=== PATIENT | male | born 1935 | race Caucasian/White ===

== ENCOUNTER 2021-07-13 13:27 | Inpatient (IN) ==
[2021-07-13] MEDS ORDERED: ALBUT/IPRATROP 3MG/0.5MG NEB 3 ML VIAL NEB STA ×2 (14:02→15:15)
[2021-07-13] MEDS ORDERED: methylPREDNISolone 125 MG/2 ML VIAL IV STA (14:02)
--- NOTE | 2021-07-13 14:22 | XRay Report ---
XR chest 1V portable CLINICAL HISTORY: SEPSIS TECHNIQUE: Single frontal radiograph of the chest was obtained. Comparison: None available at the time of this dictation. FINDINGS: No lines and tubes are seen. Cardiomegaly is noted. The lungs are clear. No evidence of pleural effus ion or pneumothorax. IMPRESSION: No acute chest disease. ACT 112: Negative or not required by law. Electronically signed by: Eric Jones M.D. 07/13/2021 2:20 PM
[2021-07-13 14:33] LABS: Basophils # (auto) 0.01 K/uL (0-0.2); Basophils % (auto) 0.1 %; Hematocrit (blood only) 41.4 % (42-52); Hemoglobin 14.1 g/dL (14.0-18.0); Immature Granulocytes # (auto) 0.03 K/uL (0.00-0.02); Immature Granulocytes % (auto) 0.3 %; Lymphocytes # (auto) 0.87 K/uL (1.2-3.4); Lymphocytes % (auto) 7.4 %; Mean Corpuscular Hemoglobin 31.2 pg (25-34); Mean Corpuscular Hgb Conc 34.1 g/dL (32-36); Mean Corpuscular Volume 91.6 fL (80-100); Mean Platelet Volume 10.1 fL (7.4-10.4); Monocytes # (auto) 0.33 K/uL (0.11-0.59); Monocytes % (auto) 2.8 %; Neutrophils # (auto) 10.44 K/uL (1.4-6.5); Neutrophils % (auto) 89.4 %; Platelet Count 247 K/uL (130-400); RDW Coefficient of Variation 13.1 % (11.5-14.5); RDW Standard Deviation 43.7 fL (36.4-46.3); Red Blood Count 4.52 M/uL (4.7-6.1); White Blood Count 11.68 K/uL (4.8-10.8)
[2021-07-13 14:43] LABS: Base Excess VBG 2.9 mEq/L; HCO3 VBG 29 mmol/L; PCO2 VBG 49 mmHg (38-50); PO2 VBG 23 mmHg; pH VBG 7.39 (7.36-7.41)
[2021-07-13 14:44] LABS: INR 1.1 (0.9-1.1); Partial Thromboplastin Ratio 1.1; Partial Thromboplastin Time 28.3 Seconds (21.0-31.0); Prothrombin Time 10.9 Seconds (9.0-12.0)
[2021-07-13 14:50] LABS: Oxygen Saturation VBG < 60.0 %
[2021-07-13 14:52] LABS: Alanine Aminotransferase 25 (12-78); Albumin Level 3.7 gm/dl (3.4-5.0); Aspartate Aminotransferase 20 U/L (15-37); BUN Creatinine Ratio 18.1 (10-20); Blood Urea Nitrogen 16 mg/dl (7-18); Calcium 8.7 mg/dl (8.5-10.1); Carbon Dioxide 26 mmol/L (21-32); Chloride 107 mmol/L (98-107); Est GFR (Non-African American) 77.7 ml/min; Glucose 125 mg/dl (70-99); Magnesium 2.2 mg/dl (1.8-2.4); Potassium 4.1 mmol/L (3.5-5.1); Sodium 138 mmol/L (136-145)
[2021-07-13 14:57] LABS: Alkaline Phosphatase 66 U/L (45-117); Bilirubin,Total 0.5 mg/dl (0.2-1); Globulin 3.6 gm/dl (2.5-4.0); NT Pro B Type Natriuretic Pept 561 pg/ml (0-1800); Total Protein 7.3 gm/dl (6.4-8.2); Troponin I < 0.015 ng/ml (0-0.045)
--- NOTE | 2021-07-13 15:03 | Emergency Department Note ---
History of Present Illness General Chief Complaint: Shortness of Breath/Dyspnea Stated Complaint: SOB Time Seen by Provider: 07/13/21 13:53 History of Present Illness Provider Complaint: shortness of breath and cough Onset (ago): day(s) (10) Severity: moderate Relieved By: + nothing Exacerbated By: + exertion and + coughing Context: + recent illness (Diagnosed with COVID-19 on July 03) Known history of: COPD Associated symptoms: + chest pain, + cough, + wheezing, + sputum production and + chest congestion; no orthopnea, no lower extremity pain, no paresthesias, no hemoptysis, no nausea/vomiting, no abdominal pain or no rash Treatment prior to arrival: bronchodilator HPI Narrative: Patient tested positive for COVID-19 on July 03. 2 days ago he was placed on Zithromax and prednisone. Related Data Home oxygen amount: none Home Medications Medication Instructions Recorded Confirmed Type atorvastatin 40 mg tablet 40 mg PO QAM 12/27/19 07/13/21 History cholecalciferol (vitamin D3) 25 25 mcg PO DAILY 12/27/19 07/13/21 History mcg (1,000 unit) tablet (Vitamin D3) ibuprofen 600 mg tablet 600 mg PO TID PRN #15 tab 12/27/19 07/13/21 Rx multivitamin 1 tab PO QAM 12/27/19 07/13/21 History azithromycin 250 mg tablet 0 mg PO UD 07/13/21 07/13/21 History prednisone 10 mg tablet 0 mg PO UD 07/13/21 07/13/21 History Allergies Allergy/AdvReac Type Severity Reaction Status Date / Time No Known Allergies Allergy Mild Unverified 07/13/21 15:25 Past Med/Surg History Medical History (Updated 07/13/21 @ 16:17 by Marko Ryan) COPD (chronic obstructive pulmonary disease) HLD (hyperlipidemia) No pertinent family history Surgical History (Updated 07/13/21 @ 15:12 by Marko Ryan) No pertinent past surgical history Social History Smoking Status: Current every day smoker Tobacco Type: Cigarettes Preferred Language: [place] Leonean Feels Safe at Home: Yes Review of Systems A total of 10 systems reviewed and were otherwise negative Physical Exam Vital Signs: Vital Signs - 24 hr 07/13/21 13:27 07/13/21 13:35 07/13/21 13:51 Temperature 37.0 C Temperature Source Skin Pulse Rate 47 L 67 Pulse Rate from Sp O2 Sensor 55 L Respiratory Rate 24 36 H Respiratory Effort / Characteristics Labored Non-Labored Sponta neous Respiratory Depth Normal Normal Respiratory Patter n Regular Regular Blood Pressure 149/77 H Blood Pressure Piper n 101 Pulse Oximetry 86 L 93 98 Oxygen Delivery Me thod Nasal Cannula Room Air Oxygen Flow Rate 2 2 Sepsis Recent Feve r Within 48 Hours No Sepsis New/Unexpla ined Change in Men ramses Status N/A Sepsis Action Take n by Nursing No Action Required Oxygen Flow Rate - Titration 2 Pulse Oximetry Pos t Tiitration 98 07/13/21 13:54 07/13/21 14:00 07/13/21 14:10 Temperature Temperature Source Pulse Rate 72 73 Pulse Rate from Sp O2 Sensor 70 79 Respiratory Rate 20 21 25 H Respiratory Effort / Characteristics Labored Respiratory Depth Respiratory Patter n Blood Pressure Blood Pressure Piper n Pulse Oximetry 98 97 96 Oxygen Delivery Me thod Nasal Cannula Oxygen Flow Rate 2 Sepsis Recent Feve r Within 48 Hours Sepsis New/Unexpla ined Change in Men ramses Status Sepsis Action Take n by Nursing Oxygen Flow Rate - Titration Pulse Oximetry Pos t Tiitration 07/13/21 14:20 07/13/21 14:30 07/13/21 14:40 Temperature Temperature Source Pulse Rate 77 78 75 Pulse Rate from Sp O2 Sensor 73 71 71 Respiratory Rate 23 27 H 28 H Respiratory Effort / Characteristics Respiratory Depth Respiratory Patter n Blood Pressure 151/75 H Blood Pressure Piper n 100 Pulse Oximetry 91 98 97 Oxygen Delivery Me thod Oxygen Flow Rate Sepsis Recent Feve r Within 48 Hours Sepsis New/Unexpla ined Change in Men ramses Status Sepsis Action Take n by Nursing Oxygen Flow Rate - Titration Pulse Oximetry Pos t Tiitration 07/13/21 14:50 07/13/21 15:00 07/13/21 15:10 Temperature Temperature Source Pulse Rate 75 90 68 Pulse Rate from Sp O2 Sensor 79 90 69 Respiratory Rate 20 20 24 Respiratory Effort / Characteristics Spontaneous Respiratory Depth Respiratory Patter n Blood Pressure Blood Pressure Piper n Pulse Oximetry 98 97 96 Oxygen Delivery Me thod Nasal Cannula Oxygen Flow Rate Sepsis Recent Feve r Within 48 Hours Sepsis New/Unexpla ined Change in Men ramses Status Sepsis Action Take n by Nursing Oxygen Flow Rate - Titration Pulse Oximetry Pos t Tiitration 07/13/21 15:23 07/13/21 15:30 07/13/21 15:40 Temperature Temperature Source Pulse Rate 76 81 74 Pulse Rate from Sp O2 Sensor 65 81 Respiratory Rate 22 31 H 19 Respiratory Effort / Characteristics Respiratory Depth Respiratory Patter n Blood Pressure 156/77 H Blood Pressure Piper n 103 Pulse Oximetry 80 L 91 97 Oxygen Delivery Me thod Oxygen Flow Rate Sepsis Recent Feve r Within 48 Hours Sepsis New/Unexpla ined Change in Men ramses Status Sepsis Action Take n by Nursing Oxygen Flow Rate - Titration Pulse Oximetry Pos t Tiitration Physical Exam: Physical Exam GENERAL: He is oriented to person, place, and time. He appears well-developed and well-nourished. He does not appear distressed. HENT: Exam performed. - Head: Normocephalic and atraumatic. - Right Ear: External ear normal. No mastoid tenderness. - Left Ear: External ear normal. No mastoid tenderness. - Mouth/Throat: The oropharynx is clear and moist. No trismus in the jaw. No dental abscesses or uvula swelling. No oropharyngeal exudate or tonsillar abscesses. EYES: Conjunctivae and EOM are normal. Pupils are equal, round, and reactive to light. Right eye exhibits no discharge. Left eye exhibits no discharge. No scleral icterus. NECK: Normal range of motion. Neck supple. No JVD present. No spinous process tenderness present. No carotid bruit present. No rigidity. No tracheal deviation and normal range of motion present. No Brudzinski's sign and no Kernig's sign noted. CV: Normal rate, regular rhythm, normal heart sounds and intact distal pulses. There is no peripheral edema. Palpable radial pulses bue. PULM/CHEST: Bilateral expiratory wheezes. - Chest Wall: He exhibits no tenderness. ABD: The abdomen is soft. Bowel sounds are normal. He has no distension. No mass is present. There is no tenderness. There is no rebound, no guarding, no Solomon's sign and no tenderness at McBurney's point. Rovsig negative. MUSC/SKEL: Normal range of motion. There is no peripheral edema, tenderness or deformity. LYMPH: No cervical adenopathy. NEURO: He is alert and oriented to person, place, and time. He has normal strength. No cranial nerve deficit or sensory deficit. Coordination and gait normal. GCS eye subscore is 4. GCS verbal subscore is 5. GCS motor subscore is 6. Cerebellar tests wnl. SKIN: Skin is warm and dry. He is not diaphoretic. PSYCH: He has a normal mood and affect. Behavior is normal. Judgment and thought content normal. Course Course 1353: The patient was evaluated in room B11. A complete history and physical exam was performed Cardiac monitoring: An order was placed for continuous cardiac monitoring. The monitor shows a rate of 70 with sinusrhythm 1525: Patient became very dyspneic wheezing and hypoxic when getting up to use restroom. Patient oxygen saturation went down to 80% on room air. Patient placed on supplemental oxygen which he did state made him feel better and improved his oxygen saturation. 1604: Vital signs stable. Labs and imaging within normal limits. Patient oxygen saturation stable on supplemental oxygen via nasal cannula. Still wheezing. Patient will be admitted to the [facility] team Dr. Sheth team notified Administered Medications Discontinued Medications Albuterol (Albut/Ipratrop 3mg/0.5mg Neb 3 Ml Vial) 3 ml NEB NOW STA; Protocol Stop: 07/13/21 14:03 Last Admin: 07/13/21 14:38 Dose: 3 ml Documented by: [id number] Albuterol (Albut/Ipratrop 3mg/0.5mg Neb 3 Ml Vial) 3 ml NEB NOW STA; Protocol Stop: 07/13/21 15:16 Last Admin: 07/13/21 15:37 Dose: 3 ml Documented by: [id number] Methylprednisolone (Methylprednisolone 125 Mg/2 Ml Vial) 125 mg IV NOW STA Stop: 07/13/21 14:03 Last Admin: 07/13/21 14:38 Dose: 125 mg Documented by: [id number] Medical Decision Making Laboratory Data Result diagrams: 07/13/21 Unknown 07/13/21 Unknown Lab Results 07/13/21 07/13/21 07/13/21 Range/Units 14:20 14:29 14:35 WBC (4.8-10.8) K/uL RBC (4.7-6.1) M/uL Hgb (14.0-18.0) g/dL Hct (42-52) % MCV (80-100) fL MCH (25-34) pg MCHC (32-36) g/dL RDW Std Deviation (36.4-46.3) fL RDW Coeff of Ingrid (11.5-14.5) % Plt Count (130-400) K/uL MPV (7.4-10.4) fL Immature Gran % (Auto) % Neut % (Auto) % Lymph % (Auto) % [place] % (Auto) % Eos % (Auto) % Baso % (Auto) % Neut # (Auto) (1.4-6.5) K/uL Lymph # (Auto) (1.2-3.4) K/uL [place] # (Auto) (0.11-0.59) K/uL Eos # (Auto) (0-0.5) K/uL Baso # (Auto) (0-0.2) K/uL Immature Gran # (Auto) (0.00-0.02) K/uL PT (9.0-12.0) Seconds INR (0.9-1.1) APTT (21.0-31.0) Seconds PTT Ratio VBG pH 7.39 (7.36-7.41) VBG pCO2 49 (38-50) mmHg VBG pO2 23 mmHg VBG HCO3 29 mmol/L VBG O2 Saturation < 60.0 % VBG Base Excess 2.9 mEq/L Barometric Pressure 718.5 mm/Hg Sodium (136-145) mmol/L Potassium (3.5-5.1) mmol/L Chloride (98-107) mmol/L Carbon Dioxide (21-32) mmol/L Anion Gap (3-11) BUN (7-18) mg/dl Creatinine (0.6-1.4) mg/dl Est Cr Clr Drug Dosing ml/min Est GFR ( Amer) ml/min Est GFR (Non-Af Amer) ml/min BUN/Creatinine Ratio (10-20) Glucose (70-99) mg/dl Lactate 1.5 (0.4-2.0) mmol/L Calcium (8.5-10.1) mg/dl Magnesium (1.8-2.4) mg/dl Total Bilirubin (0.2-1) mg/dl AST (15-37) U/L ALT (12-78) Alkaline Phosphatase (45-117) U/L Troponin I (0-0.045) ng/ml NT-Pro-B Natriuret Pep (0-1800) pg/ml Total Protein (6.4-8.2) gm/dl Albumin (3.4-5.0) gm/dl Globulin (2.5-4.0) gm/dl Albumin/Globulin Ratio (0.9-2) Procalcitonin (0-0.5) ng/ml SARS-CoV-2 (PCR) POSITIVE A* (Negative) Influenza Type A (PCR) Negative (Neg) Influenza Type B (PCR) Negative (Neg) RSV (RT-PCR) Negative (Neg) 07/13/21 07/13/21 07/13/21 Range/Units Unknown Unknown Unknown WBC 11.68 H (4.8-10.8) K/uL RBC 4.52 L (4.7-6.1) M/uL Hgb 14.1 (14.0-18.0) g/dL Hct 41.4 L (42-52) % MCV 91.6 (80-100) fL MCH 31.2 (25-34) pg MCHC 34.1 (32-36) g/dL RDW Std Deviation 43.7 (36.4-46.3) fL RDW Coeff of Ingrid 13.1 (11.5-14.5) % Plt Count 247 (130-400) K/uL MPV 10.1 (7.4-10.4) fL Immature Gran % (Auto) 0.3 % Neut % (Auto) 89.4 % Lymph % (Auto) 7.4 % Denton % (Auto) 2.8 % Eos % (Auto) 0.0 % Baso % (Auto) 0.1 % Neut # (Auto) 10.44 H (1.4-6.5) K/uL Lymph # (Auto) 0.87 L (1.2-3.4) K/uL [place]enton # (Auto) 0.33 (0.11-0.59) K/uL Eos # (Auto) 0.00 (0-0.5) K/uL Baso # (Auto) 0.01 (0-0.2) K/uL Immature Gran # (Auto) 0.03 H (0.00-0.02) K/uL PT (9.0-12.0) Seconds INR (0.9-1.1) APTT (21.0-31.0) Seconds PTT Ratio VBG pH (7.36-7.41) VBG pCO2 (38-50) mmHg VBG pO2 mmHg VBG HCO3 mmol/L VBG O2 Saturation % VBG Base Excess mEq/L Barometric Pressure mm/Hg Sodium 138 (136-145) mmol/L Potassium 4.1 (3.5-5.1) mmol/L Chloride 107 (98-107) mmol/L Carbon Dioxide 26 (21-32) mmol/L Anion Gap 5.0 (3-11) BUN 16 (7-18) mg/dl Creatinine 0.91 (0.6-1.4) mg/dl Est Cr Clr Drug Dosing 47.0 ml/min Est GFR ( Amer) 90.0 ml/min Est GFR (Non-Af Amer) 77.7 ml/min BUN/Creatinine Ratio 18.1 (10-20) Glucose 125 H (70-99) mg/dl Lactate (0.4-2.0) mmol/L Calcium 8.7 (8.5-10.1) mg/dl Magnesium 2.2 (1.8-2.4) mg/dl Total Bilirubin 0.5 (0.2-1) mg/dl AST 20 (15-37) U/L ALT 25 (12-78) Alkaline Phosphatase 66 (45-117) U/L Troponin I < 0.015 (0-0.045) ng/ml NT-Pro-B Natriuret Pep 561 (0-1800) pg/ml Total Protein 7.3 (6.4-8.2) gm/dl Albumin 3.7 (3.4-5.0) gm/dl Globulin 3.6 (2.5-4.0) gm/dl Albumin/Globulin Ratio 1.0 (0.9-2) Procalcitonin < 0.05 (0-0.5) ng/ml SARS-CoV-2 (PCR) (Negative) Influenza Type A (PCR) (Neg) Influenza Type B (PCR) (Neg) RSV (RT-PCR) (Neg) 07/13/21 Range/Units Unknown WBC (4.8-10.8) K/uL RBC (4.7-6.1) M/uL Hgb (14.0-18.0) g/dL Hct (42-52) % MCV (80-100) fL MCH (25-34) pg MCHC (32-36) g/dL RDW Std Deviation (36.4-46.3) fL RDW Coeff of Ingrid (11.5-14.5) % Plt Count (130-400) K/uL MPV (7.4-10.4) fL Immature Gran % (Auto) % Neut % (Auto) % Lymph % (Auto) % [place] % (Auto) % Eos % (Auto) % Baso % (Auto) % Neut # (Auto) (1.4-6.5) K/uL Lymph # (Auto) (1.2-3.4) K/uL [place] # (Auto) (0.11-0.59) K/uL Eos # (Auto) (0-0.5) K/uL Baso # (Auto) (0-0.2) K/uL Immature Gran # (Auto) (0.00-0.02) K/uL PT 10.9 (9.0-12.0) Seconds INR 1.1 (0.9-1.1) APTT 28.3 (21.0-31.0) Seconds PTT Ratio 1.1 VBG pH (7.36-7.41) VBG pCO2 (38-50) mmHg VBG pO2 mmHg VBG HCO3 mmol/L VBG O2 Saturation % VBG Base Excess mEq/L Barometric Pressure mm/Hg Sodium (136-145) mmol/L Potassium (3.5-5.1) mmol/L Chloride (98-107) mmol/L Carbon Dioxide (21-32) mmol/L Anion Gap (3-11) BUN (7-18) mg/dl Creatinine (0.6-1.4) mg/dl Est Cr Clr Drug Dosing ml/min Est GFR ( Amer) ml/min Est GFR (Non-Af Amer) ml/min BUN/Creatinine Ratio (10-20) Glucose (70-99) mg/dl Lactate (0.4-2.0) mmol/L Calcium (8.5-10.1) mg/dl Magnesium (1.8-2.4) mg/dl Total Bilirubin (0.2-1) mg/dl AST (15-37) U/L ALT (12-78) Alkaline Phosphatase (45-117) U/L Troponin I (0-0.045) ng/ml NT-Pro-B Natriuret Pep (0-1800) pg/ml Total Protein (6.4-8.2) gm/dl Albumin (3.4-5.0) gm/dl Globulin (2.5-4.0) gm/dl Albumin/Globulin Ratio (0.9-2) Procalcitonin (0-0.5) ng/ml SARS-CoV-2 (PCR) (Negative) Influenza Type A (PCR) (Neg) Influenza Type B (PCR) (Neg) RSV (RT-PCR) (Neg) Imaging Data Radiologist's Impression: Chest X-Ray 07/13/21 13:54 XR chest 1V portable CLINICAL HISTORY: SEPSIS TECHNIQUE: Single frontal radiograph of the chest was obtained. Comparison: None available at the time of this dictation. FINDINGS: No lines and tubes are seen. Cardiomegaly is noted. The lungs are clear. No evidence of pleural effusion or pneumothorax. IMPRESSION: No acute chest disease. ACT 112: Negative or not required by law. Electronically signed by: Eric Jones M.D. 07/13/2021 2:20 PM ECG Data Interpretation: Sinus rhythm with rate of 66. NC QRS and QTc intervals within normal limits. No ST elevation or ST depression. PVCs present. [facility] Narrative 1353: The patient was evaluated in room B11. A complete history and physical exam was performed Cardiac monitoring: An order was placed for continuous cardiac monitoring. The monitor shows a rate of 70 with sinusrhythm 1525: Patient became very dyspneic wheezing and hypoxic when getting up to use restroom. Patient oxygen saturation went down to 80% on room air. Patient placed on supplemental oxygen which he did state made him feel better and improved his oxygen saturation. 1604: Vital signs stable. Labs and imaging within normal limits. Patient oxygen saturation stable on supplemental oxygen via nasal cannula. Still wheezing. Patient will be admitted to the [facility] team Dr. Sheth team notified Impression & Plan Hypoxia, COPD exacerbation Critical Care Time Critical Care Time: Yes Total Critical Care Time: 41 Discharge Plan Visit Data Chief Complaint: Shortness of Breath/Dyspnea Stated Complaint: SOB ED Provider: Marko Ryan Discharge Problem: Hypoxia, COPD exacerbation Patient Disposition: Admitted As Inpatient Forms Stand Alone Forms: [facility] Prescriptions Prescriptions: No Action multivitamin Tablet 1 tab PO QAM RF: 0 atorvastatin 40 mg tablet 40 mg PO QAM RF: 0 cholecalciferol (vitamin D3) [Vitamin D3] 25 mcg (1,000 unit) Tablet 25 mcg PO DAILY RF: 0 ibuprofen 600 mg tablet 600 mg PO TID PRN (Reason: pain (scale score 4-6)) Qty: 15 RF: 0 azithromycin 250 mg tablet 0 mg PO UD RF: 0 prednisone 10 mg tablet 0 mg PO UD RF: 0 Referrals Referrals: Ciro Zayas MD [Primary Care Provider] -
[2021-07-13 15:27] LABS: Influenza A virus by PCR Negative (Neg); Influenza B virus by PCR Negative (Neg); RSV by PCR Negative (Neg)
[2021-07-13 15:35] LABS: SARS CoV2 RNA(COVID-19) InHosp POSITIVE (Negative)
--- NOTE | 2021-07-13 17:22 | History & Physical Report ---
Date of Service July 13, 2021 Assessment & Plan (1) COPD exacerbation: (2) Hypoxia: (3) COVID-19 virus infection: Plan: 85-year-old male with history of COPD, CAD, history of edema, history of alcohol use and smoking, presenting with cough and congestion times few days. ACUTE HYPOXIC RESPIRATORY FAILURE SECONDARY TO ACUTE COPD EXACERBATION ACUTE BRONCHITIS, SUSPECT COVID-19 VIRUS INFECTION RULE OUT PULMONARY EMBOLISM Diagnosed with COVID-19 virus infection 07/03/2021 Presented with hypoxia of 86%, currently on 2 L of oxygen saturating 96% Decadron 6 mg IV daily Levaquin 500 mg p.o. daily Levalbuterol/ipratropium nebulization treatments every [address] chest to rule out PE Check Ultrasound to rule out DVTs Incentive spirometry, flutter valve, Lovenox for DVT prophylaxis HISTORY OF CAD Continue aspirin DYSLIPIDEMIA On Lipitor HISTORY OF ALCOHOL USE AND SMOKING Counseling DVT prophylaxis Lovenox Full code per patient Disposition anticipate discharge to home medically stable need two-step oxygen test prior to discharge History of Present Illness Chief Complaint: 85-year-old male with history of COPD, CAD, history of edema, history of alcohol use and smoking, presenting with cough and congestion times few days. Patient diagnosed with Covid 19 infection on 07/03/2021 after apparently few weeks of poor appetite, fatigue, loss of taste and smell. Patient presented again on urgent care 07/11/2021 for cough, congestion, sputum production. He was prescribed with prednisone taper and azithromycin but with no improvement of symptoms. Presented to the ER today with O2 saturation 86% on room air, bilateral wheezing, chest x-ray clear. Was given albuterol nebulization and Solu-Medrol at the ER. On exam, patient is on 2 L of oxygen via nasal cannula, saturating 96%. Sitting up in bed, comfortable, not in distress States he feels improved compared to admission No active shortness of breath. Denies chest pain, palpitations, dizziness, abdominal pain, nausea vomiting, diarrhea. Reports mild calf pain bilaterally. No other symptoms Primary Care Provider: Ciro Zayas MD Allergies Allergy/AdvReac Type Severity Reaction Status Date / Time No Known Allergies Allergy Mild Unverified 07/13/21 15:25 Home Medications Medication Instructions Recorded Confirmed Type atorvastatin 40 mg tablet 40 mg PO QAM 12/27/19 07/13/21 History cholecalciferol (vitamin D3) 25 25 mcg PO DAILY 12/27/19 07/13/21 History mcg (1,000 unit) tablet (Vitamin D3) ibuprofen 600 mg tablet 600 mg PO TID PRN #15 tab 12/27/19 07/13/21 Rx multivitamin 1 tab PO QAM 12/27/19 07/13/21 History azithromycin 250 mg tablet 0 mg PO UD 07/13/21 07/13/21 History prednisone 10 mg tablet 0 mg PO UD 07/13/21 07/13/21 History Past Med/Surg History Medical History (Updated 07/13/21 @ 17:19 by Noah Hardin MD) COPD (chronic obstructive pulmonary disease) HLD (hyperlipidemia) No pertinent family history Surgical History (Updated 07/13/21 @ 15:12 by Marko Ryan) No pertinent past surgical history Social History Smoking Status: Current every day smoker Tobacco Type: Cigarettes Preferred Language: Macedonian Feels Safe at Home: Yes Review of Systems Review of Systems: all noted and negative except for above Physical Exam Physical Exam: General- oriented x 3, not in distress, speaks in sentences with no effort or accessory muscle use Head- atraumatic Eyes- PERRL, EOMI, anicteric ENT- oropharynx clear Neck- supple, no JVD, no adenopathy, no thyromegaly; carotids +2/2, no bruits appreciated Lungs-diminished breath sounds bilaterally, faint wheezing on the left, clear on the right Heart- normal rate, regular rhythm; no murmur, no gallop, no rub appreciated Abdomen- normal bowel sounds, nondistended, soft, nontender, no masses or hepatosplenomegaly Extremities- no pretibial edema, no calf tenderness; peripheral pulses intact Neuro- alert, oriented x 3; CN 2-12 grossly intact; motor 5/5 bilaterally;sensation 100% on all extremities; no other gross focal neurologic deficits Skin- warm & dry Results & Data Results & Data ([facility]) Vital Signs (Past 12 Hours) Vital Signs Temp Pulse Resp BP Pulse Ox 07/13/21 17:00 128/70 95 07/13/21 16:50 96 07/13/21 16:40 82 96 07/13/21 16:30 87 98 07/13/21 16:20 96 07/13/21 16:10 93 07/13/21 16:00 81 14 94 07/13/21 15:50 94 07/13/21 15:40 74 19 97 07/13/21 15:30 81 31 H 156/77 H 91 07/13/21 15:23 76 22 80 L 07/13/21 15:10 68 24 96 07/13/21 15:00 90 20 97 07/13/21 14:50 75 20 98 07/13/21 14:40 75 28 H 97 07/13/21 14:30 78 27 H 151/75 H 98 07/13/21 14:20 77 23 91 07/13/21 14:10 73 25 H 96 07/13/21 14:00 72 21 97 07/13/21 13:54 20 98 07/13/21 13:51 67 36 H 98 07/13/21 13:35 37.0 C 47 L 24 149/77 H 93 07/13/21 13:27 86 L all noted and reviewed including below Code Status & VTE Plan VTE Prophylaxis Plan VTE Prophylaxis will be ordered: Yes
[2021-07-13] MEDS ORDERED: OPTIRAY 320 125ml IV ONE (17:56)
--- NOTE | 2021-07-13 18:13 | Ultrasound Report ---
US venous doppler LE BI CLINICAL HISTORY: calf pain, COVID infection COMPARISON: None available at the time of this dictation. TECHNIQUE: Bilateral lower extremity real-time compression venous ultrasound with Color Doppler imagi ng. Utilizing real-time ultrasonic imaging multiple real time high-resolution ultrasonic images with comp ression and noncompression maneuvers of the deep venous system in addition to color doppler imaging w ere performed from the common femoral vein through the proximal calf veins. FINDINGS: Currently there is normal compressibility of the deep venous system from the common femoral vein thro ugh the proximal calf veins. No current evidence of acute thrombosis is identified. Impression: No evidence of deep venous thrombus. ACT 112: Negative or not required by law. Electronically signed by: Eric Jones M.D. 07/13/2021 6:12 PM
--- NOTE | 2021-07-13 18:19 | CT Scan Report ---
CT angio chest PE protocol CLINICAL HISTORY: PE code positive. TECHNIQUE: Multidetector row helical CT of the chest was performed. Coronal and sagittal reformations were obtained. Coronal and sagittal MIPS were obtained from the axial data set and were submitted fo r review. Automated dose lowering techniques and/or adjustment according to patient size were utiliz ed for this exam. Comparison: None available at the time of this dictation. FINDINGS: Lungs and pleura: Diffuse centrilobular emphysema is seen most prominent in the upper lobes. Heart and pericardium: Heart size is normal. No pericardial effusion. Vessels: There is a nonocclusive thrombus in a right upper lobe segmental artery. Mediastinum and kinza: Unremarkable. Chest wall and lower neck: Unremarkable. Abdomen: Unremarkable. Bones: Degenerative changes in the thoracic spine. IMPRESSION: Nonocclusive thrombus in a right upper lobe segmental artery. ACT 112: Negative or not required by law. Electronically signed by: Eric Jones M.D. 07/13/2021 6:18 PM
[2021-07-13 18:32] LABS: Appearance Urine Clear (Clear); Bilirubin Urine Negative (Negative); Blood Urine Negative (Negative); Color Urine Yellow; Glucose Urine UA Negative (Negative); Ketones Urine Negative (Negative); Leukocyte Esterase Urine Negative (Negative); Nitrite Urine Negative (Negative); Protein Urine Negative (Negative); Specific Gravity Urine 1.009 (1.000-1.030); Urobilinogen Urine Negative (Negative); pH Urine 5.5 (4.5-7.5)
[2021-07-13] MEDS ORDERED: XOPENEX/ATROVENT 1.25mg/0.5MG NEB COMBO NEB SCH (22:57)
[2021-07-13] MEDS ORDERED: ACETAMINOPHEN 325 MG TAB PO PRN (22:57)
[2021-07-13] MEDS: LEVALBUTEROL 1.25MG/0.5ML NEB INH SCH (23:19)
[2021-07-13] MEDS: IPRATROPIUM BROMIDE NEB SOLN 0.02% 2.5 ML VIAL INH SCH (23:19)
[2021-07-13] MEDS ORDERED: levoFLOXacin 500 MG TAB PO ONE (23:45)
[2021-07-14] MEDS: ENOXAPARIN INJ 60 MG/0.6 ML SYR SC SCH ×3 (00:36→23:07)
[2021-07-14] MEDS: IPRATROPIUM BROMIDE NEB SOLN 0.02% 2.5 ML VIAL INH SCH ×4 (00:38→19:31)
[2021-07-14] MEDS: LEVALBUTEROL 1.25MG/0.5ML NEB INH SCH ×4 (00:38→19:31)
[2021-07-14] MEDS: dexAMETHasone 6 MG in SYRINGE 0 ML IV SCH (07:58)
[2021-07-14 09:46] LABS: Hematocrit (blood only) 40.8 % (42-52); Hemoglobin 13.6 g/dL (14.0-18.0); Mean Corpuscular Hemoglobin 31.2 pg (25-34); Mean Corpuscular Hgb Conc 33.3 g/dL (32-36); Mean Corpuscular Volume 93.6 fL (80-100); Mean Platelet Volume 9.9 fL (7.4-10.4); Platelet Count 243 K/uL (130-400); RDW Coefficient of Variation 13.3 % (11.5-14.5); RDW Standard Deviation 45.8 fL (36.4-46.3); Red Blood Count 4.36 M/uL (4.7-6.1); White Blood Count 9.19 K/uL (4.8-10.8)
[2021-07-14 10:06] LABS: Albumin Level 3.3 gm/dl (3.4-5.0); BUN Creatinine Ratio 19.1 (10-20); Calcium 8.5 mg/dl (8.5-10.1); Creatinine Clr Calc Pharmacy 44.2 ml/min; Est GFR (African American) 88.8 ml/min; Est GFR (Non-African American) 76.6 ml/min; Potassium 3.7 mmol/L (3.5-5.1)
[2021-07-14 10:09] LABS: Bilirubin,Total 0.5 mg/dl (0.2-1); Globulin 3.3 gm/dl (2.5-4.0); Total Protein 6.6 gm/dl (6.4-8.2)
[2021-07-14 10:10] LABS: ALC (manual) 0.74 K/uL (1.2-3.4); ANC (manual) 7.95 K/uL (1.4-6.5); Lymphocytes # (manual) 0.74 K/uL (1.2-3.4); Lymphocytes % (manual) 8.1 %; Monocytes % (manual) 5.4 %; Neutrophils # (manual) 7.95 K/uL (1.4-6.5); Neutrophils % (manual) 86.5 %
--- NOTE | 2021-07-14 11:40 | Electrocardiogram Report ---
Test Reason : Blood Pressure : / mmHG Vent. Rate : 066 BPM Atrial Rate : 066 BPM P-R Int : 132 ms QRS Dur : 094 ms QT Int : 428 ms P-R-T Axes : 070 058 059 degrees QTc Int : 448 ms Sinus rhythm with occasional Premature ventricular complexes Otherwise normal ECG No previous ECGs available Confirmed by Alexx Pacheco ([id number]) on 07/14/2021 11:39:42 AM Referred By: Confirmed By:Alexx Pacheco
[2021-07-14] MEDS: levoFLOXacin 250 MG TABLET PO SCH (12:39)
--- NOTE | 2021-07-14 14:45 | Hospitalist Progress Note ---
Date of Service July 14, 2021 Assessment & Plan (1) COPD exacerbation: (2) Hypoxia: (3) COVID-19 virus infection: Plan: 85-year-old male with history of COPD, CAD, history of edema, history of alcohol use and smoking, presenting with cough and congestion times few days. ACUTE HYPOXIC RESPIRATORY FAILURE SECONDARY TO ACUTE COPD EXACERBATION ACUTE BRONCHITIS, SUSPECT COVID-19 VIRUS INFECTION RULE OUT PULMONARY EMBOLISM Diagnosed with COVID-19 virus infection 07/03/2021 Presented with hypoxia of 86%, placed on 2 L of oxygen saturating 96% CT chest: No pneumonia, right upper lobe PE-acute to subacute per radiologist Decadron 6 mg IV daily Levaquin 500 mg p.o. 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 presented 10 days after symptom onset Continue Levaquin day #2 Continue nebs Incentive spirometry, flutter valve Management of acute PE per below ACUTE PULMONARY EMBOLISM Right upper lobe, seen on CT chest Doppler ultrasound: No DVTs Lovenox 50 mg subcutaneous twice daily Transition to NOAC on discharge HISTORY OF CAD Continue aspirin DYSLIPIDEMIA On Lipitor HISTORY OF ALCOHOL USE AND SMOKING Counseling DVT prophylaxis Lovenox Full code per patient Disposition anticipate discharge to home medically stable need two-step oxygen test prior to discharge Admission and Anticipated Discharge Date Admission Date: July 13, 2021 Subjective Follow-up for acute hypoxic respiratory failure, COVID-19 infection, COPD exacerbation, acute bronchitis Etc. Seen sitting up in bed, off oxygen supplement States he feels improved today compared to yesterday Breathing is improving Has dry cough No chest pain, palpitations, dizziness, leg pain, nausea vomiting Appetite is improving No other symptoms Review of Systems Review of Systems: all noted and negative except for above Physical Exam Physical Exam: General- oriented x 3, not in distress, speaks in sentences with no effort or accessory muscle use Eyes- anicteric Neck- no JVD Lungs-diminished breath sounds bilaterally, no wheezing noted Heart- normal rate, regular rhythm; no murmurs Abdomen- normal bowel sounds, nondistended, soft, nontender Extremities- no pretibial edema, no calf tenderness Neuro- alert, oriented x 3; no gross focal neurologic deficits Skin- warm & dry Results & Data Results & Data ([facility]) Vital Signs (Past 12 Hours) Vital Signs Temp Pulse Pulse Resp BP BP Pulse Ox 07/14/21 11:57 36.5 C 98 H 18 148/73 H 92 07/14/21 09:46 51 L 07/14/21 08:25 80 16 99 07/14/21 08:13 95 07/14/21 07:39 36.6 C 67 18 134/71 98 07/14/21 03:57 97 07/14/21 03:30 36.6 C 59 L 16 118/66 95 all noted and reviewed including below
[2021-07-14] MEDS ORDERED: DAPTOmycin 300 MG in SYRINGE 0 ML IV SCH (18:15)
[2021-07-15] MEDS: LEVALBUTEROL 1.25MG/0.5ML NEB INH SCH ×2 (00:38→06:59)
[2021-07-15] MEDS: IPRATROPIUM BROMIDE NEB SOLN 0.02% 2.5 ML VIAL INH SCH ×2 (00:38→06:59)
[2021-07-15] MEDS: dexAMETHasone 6 MG in SYRINGE 0 ML IV SCH (08:15)
[2021-07-15] MEDS ORDERED: LEVALBUTEROL 1.25MG/0.5ML NEB INH PRN (09:47)
[2021-07-15] MEDS ORDERED: IPRATROPIUM BROMIDE NEB SOLN 0.02% 2.5 ML VIAL INH PRN (09:47)
[2021-07-15 10:16] LABS: Basophils # (auto) 0.02 K/uL (0-0.2); Basophils % (auto) 0.2 %; Eosinophils # (auto) 0.01 K/uL (0-0.5); Eosinophils % (auto) 0.1 %; Hematocrit (blood only) 42.4 % (42-52); Hemoglobin 14.4 g/dL (14.0-18.0); Immature Granulocytes # (auto) 0.01 K/uL (0.00-0.02); Immature Granulocytes % (auto) 0.1 %; Lymphocytes # (auto) 1.19 K/uL (1.2-3.4); Mean Corpuscular Hemoglobin 31.4 pg (25-34); Mean Corpuscular Volume 92.4 fL (80-100); Mean Platelet Volume 10.1 fL (7.4-10.4); Monocytes # (auto) 0.96 K/uL (0.11-0.59); Monocytes % (auto) 8.9 %; Neutrophils % (auto) 79.7 %; Platelet Count 220 K/uL (130-400); RDW Coefficient of Variation 13.4 % (11.5-14.5); RDW Standard Deviation 44.9 fL (36.4-46.3); Red Blood Count 4.59 M/uL (4.7-6.1); White Blood Count 10.79 K/uL (4.8-10.8)
[2021-07-15 10:51] LABS: BUN Creatinine Ratio 15.2 (10-20); Creatinine Clr Calc Pharmacy 47.7 ml/min; Est GFR (African American) 92.9 ml/min; Est GFR (Non-African American) 80.2 ml/min; Potassium 3.5 mmol/L (3.5-5.1)
[2021-07-15] MEDS ORDERED: ceFAZolin 1000MG 1,000 MG/7.5 ML SYR IV SCH (12:00)
[2021-07-15] MEDS: ENOXAPARIN INJ 60 MG/0.6 ML SYR SC SCH ×2 (12:17→22:32)
[2021-07-15] MEDS: levoFLOXacin 250 MG TABLET PO SCH (12:55)
[2021-07-15] MEDS: FLUTICASONE/VILANTEROL 100/25MCG 14 PUFFS/INHALER INH SCH (17:59)
--- NOTE | 2021-07-15 18:40 | Hospitalist Progress Note ---
Date of Service July 15, 2021 Assessment & Plan (1) COPD exacerbation: (2) Hypoxia: (3) COVID-19 virus infection: Plan: 85-year-old male with history of COPD, CAD, history of edema, history of alcohol use and smoking, presenting with cough and congestion times few days. ACUTE HYPOXIC RESPIRATORY FAILURE SECONDARY TO ACUTE COPD EXACERBATION ACUTE BRONCHITIS, SUSPECT COVID-19 VIRUS INFECTION RULE OUT PULMONARY EMBOLISM Diagnosed with COVID-19 virus infection 07/03/2021 Presented with hypoxia of 86%, placed on 2 L of oxygen saturating 96% CT chest: No pneumonia, right upper lobe PE-acute to subacute per radiologist Decadron 6 mg IV daily Levaquin 250 mg p.o. daily Levalbuterol/ipratropium nebulization treatments every 6 hours PRN Clinically seems to be improving- now on room air Continue Decadron 6 mg IV daily day #2 Does not meet criteria for Remdesivir patient presented 10 days after symptom onset Continue Levaquin day #3 Continue nebs PRN Incentive spirometry, flutter valve add Breo daily Management of acute PE per below ACUTE PULMONARY EMBOLISM Right upper lobe, seen on CT chest Doppler ultrasound: No DVTs Lovenox 50 mg subcutaneous twice daily Transition to NOAC on discharge HISTORY OF CAD Continue aspirin DYSLIPIDEMIA On Lipitor HISTORY OF ALCOHOL USE AND SMOKING Counseling DVT prophylaxis Lovenox Full code per patient Disposition anticipate discharge to home medically stable need two-step oxygen test prior to discharge Admission and Anticipated Discharge Date Admission Date: July 13, 2021 Subjective ff up for acute hypoxic respiratory failure, covid 19 infection, acute COPD exacerbation and acute bronchitis, etc seen resting in bed, on room air comfortable states he feels improved overall although still winded when ambulating cough improving, no fever/chills, palpitations, dizziness no bleeding no other symptoms Review of Systems Review of Systems: all noted and negative except for above Physical Exam Physical Exam: General- oriented x 3, not in distress, speaks in sentences with no effort or accessory muscle use Eyes- anicteric Neck- no JVD Lungs- improved breath sounds- not as diminished, no crackles/wheezing Heart- normal rate, regular rhythm; no murmurs Abdomen- normal bowel sounds, nondistended, soft, nontender Extremities- no pretibial edema, no calf tenderness Neuro- alert, oriented x 3; no gross focal neurologic deficits Skin- warm & dry Results & Data Results & [facility] ([facility]) Vital Signs (Past 12 Hours) Vital Signs Temp Pulse Resp BP Pulse Ox 07/15/21 16:21 36.4 C L 60 16 134/60 93 07/15/21 08:03 36.7 C 62 16 145/70 H 93 07/15/21 07:00 55 L 18 95 all noted and reviewed including below
[2021-07-16 06:51] LABS: Basophils # (auto) 0.01 K/uL (0-0.2); Basophils % (auto) 0.1 %; Eosinophils # (auto) 0.03 K/uL (0-0.5); Eosinophils % (auto) 0.3 %; Hematocrit (blood only) 41.9 % (42-52); Immature Granulocytes # (auto) 0.02 K/uL (0.00-0.02); Immature Granulocytes % (auto) 0.2 %; Lymphocytes # (auto) 2.82 K/uL (1.2-3.4); Lymphocytes % (auto) 25.6 %; Mean Corpuscular Hemoglobin 30.8 pg (25-34); Mean Corpuscular Hgb Conc 33.4 g/dL (32-36); Mean Corpuscular Volume 92.1 fL (80-100); Mean Platelet Volume 10.1 fL (7.4-10.4); Monocytes # (auto) 1.05 K/uL (0.11-0.59); Monocytes % (auto) 9.5 %; Neutrophils # (auto) 7.08 K/uL (1.4-6.5); Neutrophils % (auto) 64.3 %; Platelet Count 251 K/uL (130-400); RDW Coefficient of Variation 13.3 % (11.5-14.5); Red Blood Count 4.55 M/uL (4.7-6.1); White Blood Count 11.01 K/uL (4.8-10.8)
[2021-07-16 07:21] LABS: Calcium 8.6 mg/dl (8.5-10.1); Creatinine Clr Calc Pharmacy 56.1 ml/min; Est GFR (African American) 97.8 ml/min; Est GFR (Non-African American) 84.4 ml/min; Potassium 4.2 mmol/L (3.5-5.1)
[2021-07-16] MEDS: dexAMETHasone 6 MG in SYRINGE 0 ML IV SCH (08:14)
[2021-07-16] MEDS: FLUTICASONE/VILANTEROL 100/25MCG 14 PUFFS/INHALER INH SCH (08:15)
[2021-07-16] MEDS: ENOXAPARIN INJ 60 MG/0.6 ML SYR SC SCH ×2 (10:57→23:34)
[2021-07-16] MEDS: levoFLOXacin 500 MG TAB PO SCH (11:12)
--- NOTE | 2021-07-16 23:46 | Hospitalist Progress Note ---
Date of Service July 16, 2021 delayed entry date of service noted above Assessment & Plan (1) COPD exacerbation: (2) Hypoxia: (3) COVID-19 virus infection: Plan: 85-year-old male with history of COPD, CAD, history of edema, history of alcohol use and smoking, presenting with cough and congestion times few days. ACUTE HYPOXIC RESPIRATORY FAILURE SECONDARY TO ACUTE COPD EXACERBATION ACUTE BRONCHITIS, SUSPECT COVID-19 VIRUS INFECTION RULE OUT PULMONARY EMBOLISM Diagnosed with COVID-19 virus infection 07/03/2021 Presented with hypoxia of 86%, placed on 2 L of oxygen saturating 96% CT chest: No pneumonia, right upper lobe PE-acute to subacute per radiologist Decadron 6 mg IV daily Levaquin 250 mg p.o. daily Levalbuterol/ipratropium nebulization treatments every 6 hours PRN Clinically seems to be improving- now on room air still somewhat winded on exertion- 2 step o2 07/16: no oxygen supplement needed Continue Decadron 6 mg IV daily day #3 Does not meet criteria for Remdesivir patient presented 10 days after symptom onset Continue Levaquin day #4 Continue nebs PRN Incentive spirometry, flutter valve added Breo daily Management of acute PE per below ACUTE PULMONARY EMBOLISM Right upper lobe, seen on CT chest Doppler ultrasound: No DVTs Lovenox 50 mg subcutaneous twice daily Transition to NOAC on discharge HISTORY OF CAD Continue aspirin DYSLIPIDEMIA On Lipitor HISTORY OF ALCOHOL USE AND SMOKING Counseling DVT prophylaxis Lovenox Full code per patient Disposition anticipate discharge to home medically stable plan of care discussed with patient in detail and at length all questions answered he is understanding, agreeable, comfortable with the plan of care Admission and Anticipated Discharge Date Admission Date: July 13, 2021 Subjective ff up for acute hypoxic respiratory failure, covid 19 pneumonia etc resting in bed, comfortable watching TV reports he is improving but still somewhat winded with exertion no cough, chest pain,leg pain appetite improving no other symptoms Review of Systems Review of Systems: all noted and negative except for above Physical Exam Physical Exam: General- oriented x 3, not in distress, speaks in sentences with no effort or accessory muscle use Eyes- anicteric Neck- no JVD Lungs- diminished but clear BS- improving Heart- normal rate, regular rhythm; no murmurs Abdomen- normal bowel sounds, nondistended, soft, nontender Extremities- no pretibial edema, no calf tenderness Neuro- alert, oriented x 3; no gross focal neurologic deficits Skin- warm & dry Results & Data Results & [facility] ([facility]) Vital Signs (Past 12 Hours) Vital Signs Temp Pulse Pulse Resp BP Pulse Ox 07/16/21 23:14 36.2 C L 62 18 153/69 H 93 07/16/21 19:50 36.4 C L 65 18 128/65 92 07/16/21 15:16 36.4 C L 74 18 117/72 95 07/16/21 14:16 81 all noted and reviewed including below
[2021-07-17] MEDS ORDERED: LORazepam 0.5 MG TAB PO STA (02:27)
[2021-07-17] MEDS: FLUTICASONE/VILANTEROL 100/25MCG 14 PUFFS/INHALER INH SCH (08:27)
[2021-07-17] MEDS: dexAMETHasone 6 MG in SYRINGE 0 ML IV SCH (08:28)
[2021-07-17] MEDS: levoFLOXacin 500 MG TAB PO SCH (08:28)
[2021-07-17] MEDS: ENOXAPARIN INJ 60 MG/0.6 ML SYR SC SCH ×2 (12:24→22:27)
[2021-07-17] MEDS: LORazepam 0.5 MG TAB PO PRN (22:27)
--- NOTE | 2021-07-17 23:41 | Hospitalist Progress Note ---
Date of Service July 17, 2021 Assessment & Plan (1) COPD exacerbation: (2) Hypoxia: (3) COVID-19 virus infection: Plan: 85-year-old male with history of COPD, CAD, history of edema, history of alcohol use and smoking, presenting with cough and congestion times few days. ACUTE HYPOXIC RESPIRATORY FAILURE SECONDARY TO ACUTE COPD EXACERBATION ACUTE BRONCHITIS, SUSPECT COVID-19 VIRUS INFECTION RULE OUT PULMONARY EMBOLISM Diagnosed with COVID-19 virus infection 07/03/2021 Presented with hypoxia of 86%, placed on 2 L of oxygen saturating 96% Sputum culture history 84% subscription to see CT chest: No pneumonia, right upper lobe PE-acute to subacute per radiologist Continue Decadron and Levaquin Levalbuterol/ipratropium nebulization treatments every 6 hours PRN still somewhat winded on exertion- 2 step o2 07/16: no oxygen supplement needed Does not meet criteria for Remdesivir patient presented 10 days after symptom onset Clinically seems to be improving- now on room air continue incentive spirometry, flutter valve and Breo daily Since he is getting tired easily patient would like to go to rehab ACUTE PULMONARY EMBOLISM Right upper lobe, seen on CT chest Doppler ultrasound: No DVTs Lovenox 50 mg subcutaneous twice daily Transition to NOAC on discharge HISTORY OF CAD Continue aspirin DYSLIPIDEMIA On Lipitor HISTORY OF ALCOHOL USE AND SMOKING Counseling DVT prophylaxis Lovenox Full code per patient Disposition Patient would like to go to rehab Admission and Anticipated Discharge Date Admission Date: July 13, 2021 Subjective Pt was seen and examined for follow of COVID 19 Lying in bed with no acute distress Patient saturated well on room air He said he continues to have shortness of breath with exertion. Denies any chest pain, palpitation, dizziness, and fever. Review of Systems Review of Systems: All systems reviewed & are unremarkable except as noted in Subjective Physical Exam Physical Exam: General- No acute distress Head- atraumatic Eyes- PERRL, EOMI, ENT- oropharynx clear Neck- supple, no JVD Lungs- clear to auscultation Heart- regular rhythm; no murmur Abdomen- normal bowel sounds, soft, nontender Extremities- no calf tenderness Neuro- alert, oriented x 3; PERRL, EOMI; no facial palsy; no dysarthria Skin- warm & dry to new status Remove gastric skin Results & Data Results & Data ([facility]) Vital Signs (Past 12 Hours) Vital Signs Temp Pulse Pulse Resp BP Pulse Ox 07/17/21 23:27 36.5 C 71 20 130/65 91 07/17/21 19:56 36.5 C 71 18 136/68 91 07/17/21 15:49 36.3 C L 67 18 140/89 94 07/17/21 14:18 75 07/17/21 12:00 36.8 C 80 18 127/70 92
[2021-07-18] MEDS: dexAMETHasone 6 MG in SYRINGE 0 ML IV SCH (07:18)
[2021-07-18] MEDS: FLUTICASONE/VILANTEROL 100/25MCG 14 PUFFS/INHALER INH SCH (07:18)
[2021-07-18] MEDS: levoFLOXacin 500 MG TAB PO SCH (07:19)
[2021-07-18] MEDS: ENOXAPARIN INJ 60 MG/0.6 ML SYR SC SCH ×2 (10:37→22:03)
--- NOTE | 2021-07-18 23:50 | Hospitalist Progress Note ---
Date of Service July 18, 2021 Assessment & Plan (1) COPD exacerbation: (2) Hypoxia: (3) COVID-19 virus infection: Plan: 85-year-old male with history of COPD, CAD, history of edema, history of alcohol use and smoking, presenting with cough and congestion times few days. 85-year-old male with history of COPD, CAD, history of edema, history of alcohol use and smoking, presenting with cough and congestion times few days. ACUTE HYPOXIC RESPIRATORY FAILURE SECONDARY TO ACUTE COPD EXACERBATION ACUTE BRONCHITIS, SUSPECT COVID-19 VIRUS INFECTION RULE OUT PULMONARY EMBOLISM Diagnosed with COVID-19 virus infection 07/03/2021 Presented with hypoxia of 86%, placed on 2 L of oxygen saturating 96% Sputum culture history 84% subscription to see CT chest: No pneumonia, right upper lobe PE-acute to subacute per radiologist Currently on Decadron and Levaquin Levalbuterol/ipratropium nebulization treatments every 6 hours PRN still somewhat winded on exertion- 2 step o2 07/16: no oxygen supplement needed Does not meet criteria for Remdesivir patient presented 10 days after symptom onset Clinically seems to be improving- now on room air continue incentive spirometry, flutter valve and Breo daily Since he is getting tired easily patient would like to go to rehab ACUTE PULMONARY EMBOLISM Right upper lobe, seen on CT chest Doppler ultrasound: No DVTs Lovenox 50 mg subcutaneous twice daily Transition to NOAC on discharge Case discussed with Hematology Dr. Diamond about anticoagulant on discharge Pt has been on Lovenox for 7 days, will start on Eliquis 5mg BID Will not do Eliquis 10mg BID x 7 days since he was on Lovenox therapeutic dose for 7 days and pt ia at increase risk of bleeding HISTORY OF CAD Continue aspirin DYSLIPIDEMIA On Lipitor HISTORY OF ALCOHOL USE AND SMOKING Counseling DVT prophylaxis Lovenox Full code per patient Disposition Waiting for placement to rehab Admission and Anticipated Discharge Date Admission Date: July 13, 2021 Subjective Pt was seen and examined for follow of COVID 19 Lying in bed with no acute distress Patient saturated well on room air Denies any chest pain, palpitation, dizziness, and fever. Review of Systems Review of Systems: All systems reviewed & are unremarkable except as noted in Subjective Physical Exam Physical Exam: General- No acute distress Head- atraumatic Eyes- PERRL, EOMI, ENT- oropharynx clear Neck- supple, no JVD Lungs- clear to auscultation Heart- regular rhythm; no murmur Abdomen- normal bowel sounds, soft, nontender Extremities- no calf tenderness Neuro- alert, oriented x 3; PERRL, EOMI; no facial palsy; no dysarthria Skin- warm & dry to new status Remove gastric skin Results & Data Results & Data ([facility]) Vital Signs (Past 12 Hours) Vital Signs Temp Pulse Pulse Resp BP Pulse Ox 07/18/21 23:00 36.4 C L 64 18 136/57 L 92 07/18/21 19:00 36.5 C 66 18 118/63 94 07/18/21 17:01 79 07/18/21 15:00 36.6 C 71 18 147/72 H 94 07/18/21 12:29 71 16 92
[2021-07-19] MEDS: LORazepam 0.5 MG TAB PO PRN (00:52)
[2021-07-19 07:12] LABS: Hematocrit (blood only) 41.2 % (42-52); Hemoglobin 14.1 g/dL (14.0-18.0); Mean Corpuscular Hemoglobin 31.1 pg (25-34); Mean Corpuscular Hgb Conc 34.2 g/dL (32-36); Mean Corpuscular Volume 90.7 fL (80-100); Mean Platelet Volume 10.3 fL (7.4-10.4); Platelet Count 223 K/uL (130-400); RDW Coefficient of Variation 13.2 % (11.5-14.5); RDW Standard Deviation 43.4 fL (36.4-46.3); Red Blood Count 4.54 M/uL (4.7-6.1); White Blood Count 12.82 K/uL (4.8-10.8)
[2021-07-19 07:40] LABS: Creatinine Clr Calc Pharmacy 55.9 ml/min; Est GFR (African American) 96.2 ml/min
[2021-07-19] MEDS: FLUTICASONE/VILANTEROL 100/25MCG 14 PUFFS/INHALER INH SCH (07:52)
[2021-07-19] MEDS: levoFLOXacin 500 MG TAB PO SCH (07:53)
[2021-07-19] MEDS: dexAMETHasone 6 MG in SYRINGE 0 ML IV SCH (07:53)
[2021-07-19] MEDS: ENOXAPARIN INJ 60 MG/0.6 ML SYR SC SCH (11:24)
--- NOTE | 2021-07-30 21:46 | Discharge Summary ---
Date of Service July 19, 2022 Admission HPI Per Admitting Provider 85-year-old male with history of COPD, CAD, history of edema, history of alcohol use and smoking, presenting with cough and congestion times few days. Patient diagnosed with Covid 19 infection on 07/03/2021 after apparently few weeks of poor appetite, fatigue, loss of taste and smell. Patient presented again on urgent care 07/11/2021 for cough, congestion, sputum production. He was prescribed with prednisone taper and azithromycin but with no improvement of symptoms. Presented to the ER today with O2 saturation 86% on room air, bilateral wheezing, chest x-ray clear. Was given albuterol nebulization and Solu-Medrol at the ER. On exam, patient is on 2 L of oxygen via nasal cannula, saturating 96%. Sitting up in bed, comfortable, not in distress States he feels improved compared to admission No active shortness of breath. Denies chest pain, palpitations, dizziness, abdominal pain, nausea vomiting, diarrhea. Reports mild calf pain bilaterally. No other symptoms Admission Exam Per Admitting Provider General- oriented x 3, not in distress, speaks in sentences with no effort or accessory muscle use Head- atraumatic Eyes- PERRL, EOMI, anicteric ENT- oropharynx clear Neck- supple, no JVD, no adenopathy, no thyromegaly; carotids +2/2, no bruits appreciated Lungs-diminished breath sounds bilaterally, faint wheezing on the left, clear on the right Heart- normal rate, regular rhythm; no murmur, no gallop, no rub appreciated Abdomen- normal bowel sounds, nondistended, soft, nontender, no masses or hepatosplenomegaly Extremities- no pretibial edema, no calf tenderness; peripheral pulses intact Neuro- alert, oriented x 3; CN 2-12 grossly intact; motor 5/5 bilaterally;sensation 100% on all extremities; no other gross focal neurologic deficits Skin- warm & dry Principal Diagnosis Hypoxia: COVID-19 virus infection: COPD exacerbation: Discharge Exam General- No acute distress Head- atraumatic Eyes- PERRL, EOMI, ENT- oropharynx clear Neck- supple, no JVD Lungs- clear to auscultation Heart- regular rhythm; no murmur Abdomen- normal bowel sounds, soft, nontender Extremities- no calf tenderness Neuro- alert, oriented x 3; PERRL, EOMI; no facial palsy; no dysarthria Skin- warm & dry to new status Remove gastric skin Discharge Data Allergies Allergy/AdvReac Type Severity Reaction Status Date / Time No Known Allergies Allergy Mild Unverified 07/13/21 15:25 Consultations 07/13/21 15:18 ED Decision to Admit Stat Ordered Studies 07/13/21 16:12 CT angio chest PE protocol Stat 07/13/21 17:04 US venous doppler LE BI Stat US venous doppler LE BI CLINICAL HISTORY: calf pain, COVID infection COMPARISON: None available at the time of this dictation. TECHNIQUE: Bilateral lower extremity real-time compression venous ultrasound with Color Doppler imaging. Utilizing real-time ultrasonic imaging multiple real time high-resolution ultrasonic images with compression and noncompression maneuvers of the deep venous system in addition to color doppler imaging were performed from the c ommon femoral vein through the proximal calf veins. FINDINGS: Currently there is normal compressibility of the deep venous system from the common femoral vein through the proximal calf veins. No current evidence of acute thrombosis is identified. Impression: No evidence of deep venous thrombus. ACT 112: Negative or not required by law. Electronically signed by: Eric Jones M.D. 07/13/2021 6:12 PM Dictated:07/13/211810 Transcribed: 07/13/211810 CT angio chest PE protocol CLINICAL HISTORY: PE code positive. TECHNIQUE: Multidetector row helical CT of the chest was performed. Coronal and sagittal reformations were obtained. Coronal and sagittal MIPS were obtained from the axial data set and were submitted for review. Automated dose lowering techniques and/or adjustment according to patient size were utilized for this exam. Comparison: None available at the time of this dictation. FINDINGS: Lungs and pleura: Diffuse centrilobular emphysema is seen most prominent in the upper lobes. Heart and pericardium: Heart size is normal. No pericardial effusion. Vessels: There is a nonocclusive thrombus in a right upper lobe segmental artery. Mediastinum and kinza: Unremarkable. Chest wall and lower neck: Unremarkable. Abdomen: Unremarkable. Bones: Degenerative changes in the thoracic spine. IMPRESSION: Nonocclusive thrombus in a right upper lobe segmental artery. ACT 112: Negative or not required by law. Electronically signed by: Eric Jones M.D. 07/13/2021 6:18 PM Dictated:07/13/211811 Transcribed: 07/13/211811 XR chest 1V portable CLINICAL HISTORY: SEPSIS TECHNIQUE: Single frontal radiograph of the chest was obtained. Comparison: None available at the time of this dictation. FINDINGS: No lines and tubes are seen. Cardiomegaly is noted. The lungs are clear. No evidence of pleural effusion or pneumothorax. IMPRESSION: No acute chest disease. ACT 112: Negative or not required by law. Electronically signed by: Eric Jones M.D. 07/13/2021 2:20 PM Dictated:07/13/211419 Transcribed: 07/13/211419 Hospital Course (1) COPD exacerbation: (2) Hypoxia: (3) COVID-19 virus infection: 85-year-old male with history of COPD, CAD, history of edema, history of alcohol use and smoking, presenting with cough and congestion times few days. 85-year-old male with history of COPD, CAD, history of edema, history of alcohol use and smoking, presenting with cough and congestion times few days. ACUTE HYPOXIC RESPIRATORY FAILURE SECONDARY TO ACUTE COPD EXACERBATION ACUTE BRONCHITIS, SUSPECT COVID-19 VIRUS INFECTION RULE OUT PULMONARY EMBOLISM Diagnosed with COVID-19 virus infection 07/03/2021 Presented with hypoxia of 86%, placed on 2 L of oxygen saturating 96% Sputum culture history 84% subscription to see CT chest: No pneumonia, right upper lobe PE-acute to subacute per radiologist Currently on Decadron and Levaquin Levalbuterol/ipratropium nebulization treatments every 6 hours PRN still somewhat winded on exertion- 2 step o2 07/16: no oxygen supplement needed Does not meet criteria for Remdesivir patient presented 10 days after symptom onset Clinically seems to be improving- now on room air continue incentive spirometry, flutter valve and Breo daily Since he is getting tired easily patient would like to go to rehab ACUTE PULMONARY EMBOLISM Right upper lobe, seen on CT chest Doppler ultrasound: No DVTs Lovenox 50 mg subcutaneous twice daily Transition to NOAC on discharge Case discussed with Hematology Dr. Diamond about anticoagulant on discharge Pt has been on Lovenox for 7 days, will start on Eliquis 5mg BID Will not do Eliquis 10mg BID x 7 days since he was on Lovenox therapeutic dose for 7 days and pt ia at increase risk of bleeding HISTORY OF CAD Continue aspirin DYSLIPIDEMIA On Lipitor HISTORY OF ALCOHOL USE AND SMOKING Counseling DVT prophylaxis Lovenox Full code per patient Disposition Waiting for placement to rehab Total Time Total Time Spent Total Time Spent (In Minutes): 35 minutes Discharge Plan Discharge Items Patient Disposition: Transfer Inpatient Rehab Fac Reason For Visit: ACUTE HYPOXIC RESPIRATORY FAILURE, COPD EXACERBATI Discharge Diagnosis: Hypoxia: COVID-19 virus infection: COPD exacerbation: Activity: Resume your previous activity Non-emergency contact: Primary Care Provider Call non-emergency contact if: you have any medication questions Follow-up/Referrals: Ciro Zayas MD [Primary Care Provider] - (Date & Time 07/26/2021 12:00 PM Provider Ciro Zayas MD Department General [facility] ) Diet: Heart Healthy Addtl Attending Provider Instructions: Follow up appointment with your primary care provider Dr. Zayas in 07/26/2021 at 12:00 PM at the General [facility] Continue physical and occupational therapy Continue to wear your mask and practice social distance Continue anticoagulant with Eliquis (next dose to be given tonight) Continue incentive spirometry Seek medical attention if your symptoms worsening Fall precaution Medication Instructions: Eliquis Your condition is typically treated with an anticoagulant. Anticoagulants will thin your blood to help prevent new clots. You should take her medication exactly as directed. Never skip a dose. Never take a double dose. If you miss a dose, take it as soon as you remember. Avoid NSAIDs (Motrin, Aleve, Naproxen, Ibuprofen, Advil, Meloxicam,..) due to risks of bleeding Call your Primary Care doctor if you experience any of the following: Swelling or Pain in your leg Sudden, continuous pain deep in a muscle Pain that worsens when you are active or when you stand still for a long time Chest Pain Sudden Shortness of Breath Rapid or pounding heart beat Fainting Dizziness Cough with blood or bloody sputum Sweating more than normal Bruises Heavy or uncontrolled bleeding Blood in your urine, stool or vomit Black or tarry stools Caring for Your Self at Home: Avoid sitting, standing or lying down for long periods without moving your legs and feet When traveling by car, stop to get out and move around at least once every 3 hours On long airplane, train or bus rides, get up and move around when possible If you can't get up, wiggle your toes and tighten your calves to keep your blood moving Follow Up: It is important for you to keep your follow up appointments with your medical provider. Home Isolation COVID-19 Instructions The following information about Home Isolation is from the CDC Website: https://www.cdc.gov/coronavirus/2019-ncov/hcp/ghiwyenn-rhqhkyw-cdnxjq.html Stay home except to get medical care People who are mildly ill with COVID-19 are able to isolate at home during their illness. You should restrict activities outside your home, except for getting medical care. Do not go to work, school, or public areas. Avoid using public transportation, ride-sharing, or taxis. Separate yourself from other people and animals in your home People: As much as possible, you should stay in a specific room and away from other people in your home. Also, you should use a separate bathroom, if available. Animals: You should restrict contact with pets and other animals while you are sick with COVID-19, just like you would around other people. Although there have not been reports of pets or other animals becoming sick with COVID-19, it is still recommended that people sick with COVID-19 limit contact with animals until more information is known about the virus. When possible, have another member of your household care for your animals while you are sick. If you are sick with COVID-19, avoid contact with your pet, including petting, snuggling, being kissed or licked, and sharing food. If you must care for your pet or be around animals while you are sick, wash your hands before and after you interact with pets and wear a face mask. Call ahead before visiting your doctor If you have a medical appointment, call the healthcare provider and tell them that you have or may have COVID-19. This will help the healthcare providers office take steps to keep other people from getting infected or exposed. Wear a face mask You should wear a face mask when you are around other people (e.g., sharing a room or vehicle) or pets and before you enter a healthcare providers office. If you are not able to wear a face mask (for example, because it causes trouble breathing), then people who live with you should not stay in the same room with you, or they should wear a face mask if they enter your room. Cover your coughs and sneezes Cover your mouth and nose with a tissue when you cough or sneeze. Throw used tissues in a lined trash can. Immediately wash your hands with soap and water for at least 20 seconds or, if soap and water are not available, clean your hands with an alcohol-based hand polisher balance screwhead that contains at least 60% alcohol. Clean your hands often Wash your hands often with soap and water for at least 20 seconds, especially after blowing your nose, coughing, or sneezing; going to the bathroom; and before eating or preparing food. If soap and water are not readily available, use an alcohol-based hand polisher balance screwhead with at least 60% alcohol, covering all surfaces of your hands and rubbing them together until they feel dry. Soap and water are the best option if hands are visibly dirty. Avoid touching your eyes, nose, and mouth with unwashed hands. Avoid sharing personal household items You should not share dishes, drinking glasses, cups, eating utensils, towels, or bedding with other people or pets in your home. After using these items, they should be washed thoroughly with soap and water. Clean all high-touch surfaces everyday High touch surfaces include counters, tabletops, doorknobs, bathroom fixtures, toilets, phones, keyboards, tablets, and bedside tables. Also, clean any surfaces that may have blood, stool, or body fluids on them. Use a household cleaning spray or wipe, according to the label instructions. Labels contain instructions for safe and effective use of the cleaning product including precautions you should take when applying the product, such as wearing gloves and making sure you have good ventilation during use of the product. Monitor your symptoms Seek prompt medical attention if your illness is worsening (e.g., difficulty breathing).Beforeseeking care, call your healthcare provider and tell them that you have, or are being evaluated for, COVID-19. Put on a face mask before you enter the facility. These steps will help the healthcare providers office to keep other people in the office or waiting room from getting infected or exposed. Ask your healthcare provider to call the local or state health department. Persons who are placed under active monitoring or facilitated self- monitoring should follow instructions provided by their local health department or occupational health professionals, as appropriate. When working with your local health department check their available hours. If you have a medical emergency and need to call 911, notify the dispatch personnel that you have, or are being evaluated for COVID-19. If possible, put on a face mask before emergency medical services arrive. Discontinuing home isolation Patients with confirmed COVID-19 should remain under home isolation precautions until the risk of secondary transmission to others is thought to be low. The decision to discontinue home isolation precautions should be made on a case-by- case basis, in consultation with healthcare providers and state and local health departments. Coronavirus disease 2019 (COVID-19) is a virus that causes a respiratory ill ness. It is caused by a coronavirus called 2019 novel coronavirus (2019-nCoV). There are many types of coronavirus. Coronaviruses are a very common cause of bronchitis. They may sometimes cause lung infection(pneumonia). Symptoms can range from mild to severe respiratory illness. These viruses are also foundin some animals. COVID-19 was first found in people in [facility], in late 2018. In 2020, several cases of COVID-19 have been confirmed in the [place] Public health officials are working to find the source. How the virus spreads is not yet fully known. It may be spread through droplets of fluid that a person coughs or sneezes into the air. It may be spread if you touch a surface with virus on it, such as a handle or object, and then touch your mouth. What are the symptoms of COVID-19? Some people have no symptoms or mild symptoms. Symptoms may appear 2 to 14 days after contact with the virus. Symptoms can include: Fever Coughing Trouble breathing What are possible complications from COVID-19? In many cases, this virus can cause infection (pneumonia) in both lungs. In some cases, this can cause . How is COVID-19 diagnosed? Your healthcare provider will ask about your symptoms. He or she will also ask about your recent travel and contact with sick people. Testing for the virus is only done through the CDC. If yourhealthcare provider thinks you may have COVID- 19, he or she will work with your local health department and the CDC on testing. Follow all instructions from your healthcare provider. COVID-19 is diagnosed by: Nasal and throat swab. A cotton-tipped swab is wiped inside your nose or throat. This is done to check for viruses in your nasal mucus. Sputum culture. A small sample of mucus coughed from your lungs (sputum) is collected if you have a cough. It is checked for the virus. How is COVID-19 treated? There is currently no medicine to treat the virus. Treatment is done to help your body while it fights the virus. This is known as supportive care. Supportive care may include: Pain medicine. These include acetaminophen and ibuprofen. They are used to help ease pain and reduce fever. Bed rest. This helps your body fight the illness. For severe illness, you may need to stay in the hospital. Care during severe ill ness may include: IV (intravenous) fluids.These are given through a vein to help keep your body hydrated. Oxygen. Supplemental oxygen or ventilation with a breathing machine (ventilator) may be given. This is done to keep enough oxygen in your body. Are you at risk for COVID-19? If youve been to a place where people have been sick with this virus, you are at risk for infection. You are at risk if you: Recently traveled to an affected area Had contact with a sick person who recently traveled to this area Had contact with a person who was diagnosed with COVID-19 How can COVID-19 be prevented? There is no vaccine yet. The best prevention is to not have contact with the virus. The CDC advises that people should not travel to areas where there are COVID-19 outbreaks right now for any reason that is not urgent. To help prevent spreading the infection, wash your hands often, or use an alcohol-basedhand polisher balance screwhead. If you are in an area with COVID-19: Wash your hands often. Or use an alcohol-based hand polisher balance screwhead often. Only touch your eyes, nose, or mouth with clean hands. Dont have contact with people who are sick. Follow local instructions about being in public. For example, you may be told to not use public transport for a period of time. Stay away from markets that have live or animals. Wash your hands after touching any animals. Don't touch animals that may be sick. Dont share eating or drinking tools with sick people. Dont kiss someone who is sick. Clean surfaces often with disinfectant. If you were in an area with COVID-19 in the last 14 days: Call your healthcare provider. He or she can talk with local health staff to see what action may be needed. Follow all instructions from your provider. Take your temperature every morning and evening for at least 14 days. This is to check for fever. Keep a record of the readings. Keep watch for symptoms of the virus. Tell your provider right away if you have symptoms. If you were in an area with COVID-19 and have a fever or other symptoms: Dont panic. Keep in mind that other illnesses can cause similar symptoms. Stay away from work, school, and public places. Limit physical contact with family members. Don't kiss anyone or share eating or drinking utensils. Clean surfaces you touch with disinfectant. This is to help prevent the virus from spreading. Call your healthcare provider. Explain that you have been exposed to COVID-19 and have symptoms. Do this before going to any hospital. Wait for instructions. Keep in mind that healthcare staff may wear protective equipment such as masks, gowns, gloves, and eye protection. You may be put in a separate room. This is to prevent the possible virus from spreading. Tell the healthcare staff about recent travel. This includes local travel on public transport. Staff may need to find other people you have been in contact with. Follow all instructions the healthcare staff give you. If you have been diagnosed with COVID-19 Follow all instructions from your healthcare provider. Dont leave your home, except to get medical care. Call your healthcare providers office before going. They can prepare and give you instructions. This will help prevent the virus from spreading. Dont go to work, school, or public areas. Dont use public transport or taxis. Stay away from other people in your home. Have them wear face masks around you. Dont share household items or food. Wear a face mask if you can. This includes at home or in a medical facility. Cover your face with a tissue when you cough or sneeze. Throw the tissue away. Wash your hands. Wash your hands often. Caregivers should: Follow all instructions from healthcare staff. Wear a face mask and protective clothing as advised. Wash hands often. Keep track of the sick persons symptoms. Clean surfaces, fabrics, and laundry thoroughly. Keep other people away from the sick person. When to call your healthcare provider Call your healthcare provider: If youve recently traveled and have symptoms If you have been diagnosed with COVID-19 and your symptoms are worse To learn more To find out more about COVID-19, visit the CDC website at ww w.cdc.gov/coronavirus/2019-ncov/index.html. [employer]. [address] [place] [id number]. All rights reserved. This information is not intended as a substitute for professional medical care. Always follow your healthcare professional's instructions. This information has been adapted from [employer] Pending Studies at Discharge: No Stand-Alone Forms: My [employer], Smoking Cessation Skilled Items Patient informed of condition?: Yes DNR: No Discharge Level of Care: Acute rehab Communicable Disease: Yes (COVID 19 ) Discharge Prognosis: Stable Lines: None Urinary Catheter: No Medications and DC Order Prescriptions: New Breo Ellipta 100-25 mcg/dose Blister With Device 1 ea inhalation DAILY 30 Days Qty: 1 RF: 0 Eliquis 5 mg tablet 5 mg PO BID 30 Days Qty: 60 RF: 0 Continued multivitamin Tablet 1 tab PO QAM RF: 0 atorvastatin 40 mg tablet 40 mg PO QAM RF: 0 cholecalciferol (vitamin D3) [Vitamin D3] 25 mcg (1,000 unit) Tablet 25 mcg PO DAILY RF: 0 azithromycin 250 mg tablet 0 mg PO UD RF: 0 prednisone 10 mg tablet 0 mg PO UD RF: 0 Discontinued ibuprofen 600 mg tablet 600 mg PO TID PRN (Reason: pain (scale score 4-6)) Qty: 15 RF: 0 Discharge Orders: Discharge Order (Routine); Ordered 07/19/21 Ordered By: Kenia Aranda Admission Data Admit Date/Time: 07/13/21 16:12 Attending Provider: Kenia Aranda Admit Provider: Noah Hardin Primary Care Provider: Ciro Zayas Other Providers: Noah Hardin ; [facility] Other Interventions: Discharge Summary Assessment (RN) Last Done: 07/19/21 13:02
== END 2021-07-19 13:20 | DRG 177 ==
LOC: ED 13:27 → 2W 16:12 → SUATTDRO 16:12 → 2W 21:19

== ENCOUNTER 2023-12-03 07:26 | Inpatient (IN) ==
--- NOTE | 2023-12-03 08:04 | Emergency Department Note ---
Impression & Plan Dizziness, Anemia, Melena ED Provider Note ED Provider Note NAME: MAGNUS HEATH AGE:87 SEX: Male : 1935 ARRIVES VIA: private vehicle INFORMANT: Patient ED PROVIDER(s): Rocío Garcia DO CHIEF COMPLAINT: Dizziness, black stools HPI: This is an 87-year-old male presents emergency department due to concern for intermittent vertigo that began on Thursday. Patient states that he felt worse this morning as though he may pass out. Patient has had vertigo in the past although this felt worse and was mostly with position change. With previous episode patient had been told it was likely due to dehydration. Patient states today he also had 5 formed melanotic bowel movements which is unusual. No recent diarrhea. No accompanying abdominal pain or bloating. He denies any change in diet or medications. He has had prior EGD and colonoscopy. He has had mild GERD previously however no documented peptic ulcer disease. He did have a prior diverticular bleed which did not require any intervention. Patient states he does take aspirin 325 mg daily. Rare use of any NSAIDs. No other anticoagulation medications. Patient also has a history of COPD. Patient seen in conjunction with Dr. Way, FP resident. PAST MEDICAL HISTORY:See Below PAST SURGICAL HISTORY:See Below FAMILY HISTORY:See Below SOCIAL HISTORY:See Below HOME MEDICATIONS:See Below ALLERGIES:See Below VITALS:See Below PHYSICAL EXAMINATION: GENERAL: alert, well appearing, well nourished, no distress, non-toxic EYE EXAM: normal conjunctiva, PERRL and EOM's grossly intact OROPHARYNX: no exudate, no erythema, lips, buccal mucosa, and tongue normal and mucous membranes are moist NECK: supple, no nuchal rigidity, no adenopathy, non-tender LUNGS: Clear to auscultation. Normal chest wall mechanics, no w/r/r HEART: no murmurs, S1 normal and S2 normal ABDOMEN: abdomen soft, non-tender, normo-active bowel sounds, no masses, no rebound or guarding. BACK: Back is symmetrical on inspection and there is no deformity, no midline tenderness, no CVA tenderness. SKIN: no rashes, petechiae, orbruising UPPER EXTREMITIES: upper extremities are grossly normal. FROM, nml pulses b/l. LOWER EXTREMITIES: No pitting edema. FROM, nml pulses b/l. NEURO EXAM: Normal sensorium, cranial nerves II-XII grossly intact, normal speech, no facial droop,nogross weakness of arms, no gross weakness of legs. Gross sensation intact. No ataxia. Vital Signs: reviewed and remarkable Differential Diagnosis: benign positional vertigo, dehydration, hypovolemia, anemia, tumor, hypoglycemia, electrolyte abnormalities, ICH, CVA, dysrhythmia, as well as others were entertained. MEDICAL DECISION MAKING: This is an 87-year-old male presents emerged from due to concern for increased episodes of dizziness and 5 melanotic stools today. Patient afebrile vital signs stable on arrival. Labs drawn and sent, IV established, EKG and chest ray performed bedside interpreted by me and patient monitored on telemetry. Patient started on gentle IV fluid rehydration. Patient's labs revealed significant anemia compared to prior now with a hemoglobin of 7.6. Patient sent for additional CT imaging of both head as well as the abdomen and pelvis. Given patient's use of aspirin and possible duodenitis noted on CT, I suspect more likely upper GI bleed. Patient had initially been given IV Protonix once anemia was noted due to concern for melanotic stools. A Protonix drip was added as a precaution. Case discussed with the hospitalist team for additional evaluation and management. Patient remained hemodynamically stable while in the emergency department. We did discuss blood transfusion and patient did sign blood consent as a precaution in case this was needed. Consultation(s): 1100: FP resident, Dr. Way, spoke with Josiah Savage hospitalist team, for additional evaluation and management. ER Treatment Provided: See below Diagnostics Interpreted By Me: -ECG: Normal sinus at 96, normal axis, intervals PVC noted mild ST depression noted in V4 through V6 -Cardiac Monitoring: An order was placed for continuous cardiac monitoring. The monitor shows a rate of 70 with normal sinus rhythm. -Laboratory studies: As stated above and show below. -Imaging studies: X-ray Chest: A single view study of the chest was reviewed and was negative for cardiomegaly, focal infiltrate, effusion, pulmonary edema, or wide mediastinum. Triage Nursing Note Reviewed Prior/Outside Records Reviewed Critical Care: Critical care of 41 min performed to assess and manage high likelihood of life- threatening anemia, involving labs and imaging performed with assessment to evaluate dizziness diagnosis with frequent reassessment. This time includes bedside time, treatment discussions with patient/family/consultants, documentation time and excludes procedure time. Past Med/Surg History Problem List Upper GI bleed Acute blood loss anemia Melena (Acute) Anemia (Acute) Dizziness (Acute) Lumbar paraspinal muscle spasm (Acute) HLD (hyperlipidemia) COPD (chronic obstructive pulmonary disease) Medical History No pertinent family history Surgical History No pertinent past surgical history Social History Smoking Status: Former smoker Tobacco Type: Cigarettes Cigarettes Per Day: 20; Second Hand Exposure: Yes; Do You Dip or Chew Tobacco: No; Hx Alcohol Use: No Hx Substance Use: No Preferred Language: Bahamian Communication Ability: Effective Hotel Controller Required: No Beliefs That Will Affect Care: None marital status: Current Living Situation: Family Current Living Situation Comment: lives with brother Feels Safe at Home: Yes Assistive Devices: None Allergies Allergies Allergy/AdvReac Type Severity Reaction Status Date / Time No Known Allergies Allergy Mild Unverified 12/03/23 10:27 Home Meds Home Medications Medication Instructions Recorded Confirmed atorvastatin 40 mg tablet 40 mg PO QPM 12/27/19 12/03/23 cholecalciferol (vitamin D3) 25 25 mcg PO HS 12/27/19 12/03/23 mcg (1,000 unit) tablet (Vitamin D3) multivitamin 1 tab PO HS 12/27/19 12/03/23 aspirin 325 mg tablet 325 mg PO HS 12/03/23 12/03/23 fluoride (sodium) 1.1 % dental 1 applic PO DAILY 12/03/23 12/03/23 paste (PreviDent 5000 Booster Plus) sildenafil 100 mg tablet 100 mg PO DAILY PRN Sexual Activity 12/03/23 12/03/23 trazodone 50 mg tablet 50 mg PO HS PRN Insomnia 12/03/23 12/03/23 Results & Data (ED) Vital Signs Vital Signs - 24 hr 12/03/23 09:48 12/03/23 12:12 12/03/23 12:14 Pulse Rate 81 Pulse Rate [Apical] 58 L 88 Respiratory Rate 18 18 Respiratory Effort / Characteristics Non-Labored Non-Labored Respiratory Depth Normal Normal Respiratory Pattern Regular Regular Blood Pressure [Right Arm] 139/66 113/78 Blood Pressure Mean [Right Arm] 90 89 Pulse Oximetry 95 99 Oxygen Delivery Method Room Air Room Air Laboratory Data 12/04/23 07:40 12/04/23 07:40 Lab Results 12/03/23 12/03/23 12/03/23 Range/Units 07:45 08:03 08:21 WBC 15.91 H (4.8-10.8) K/ul RBC 2.42 L (4.70-6.10) M/uL Hgb 7.6 L (14.0-18.0) g/dl Hct 22.1 L (42.0-52.0) % MCV 91.3 (80.0-100.0) fL MCH 31.4 (25.0-34.0) pg MCHC 34.4 (32.0-36.0) g/dL RDW Std Deviation 41.5 (36.4-46.3) fL RDW Coeff of Ingrid 12.6 (11.5-14.5) % Plt Count 309 (130-400) K/uL MPV 9.5 (9.4-12.4) fL Immature Gran % (Auto) 0.7 % Neut % (Auto) 79.2 % Lymph % (Auto) 13.7 % [place] % (Auto) 5.2 % Eos % (Auto) 0.6 % Baso % (Auto) 0.6 % Neut # (Auto) 12.62 H (1.40-6.50) K/uL Lymph # (Auto) 2.18 (1.20-3.40) K/uL [place] # (Auto) 0.82 H (0.11-0.59) K/uL Eos # (Auto) 0.09 (0.00-0.50) K/uL Baso # (Auto) 0.09 (0.00-0.20) K/uL Immature Gran # (Auto) 0.11 (0.01-0.20) K/uL RBC Morphology Unremarkable PT (9.0-12.0) Seconds INR (0.9-1.1) Sodium 140 (136-145) mmol/L Potassium 4.3 (3.5-5.1) mmol/L Chloride 109 H (98-107) mmol/L Carbon Dioxide 24 (21-32) mmol/L Anion Gap 7 (3-11) BUN 54 H (6-23) mg/dl Creatinine 0.84 (0.6-1.4) mg/dl Est Cr Clr Drug Dosing 56.4 ml/min Est GFR ( Amer) 92.5 ml/min Est GFR (Non-Af Amer) 79.8 ml/min BUN/Creatinine Ratio 64.3 H (10-20) Glucose 116 H (70-99(Fasting)) mg/dl Calcium 8.3 L (8.6-10.3) mg/dl Total Bilirubin 0.4 (0.2-1.0) mg/dl AST 20 (13-39) U/L ALT 15 (7-52) U/L Alkaline Phosphatase 44 (34-104) U/L Troponin I High Sens 16.5 (0-20) pg/ml B-Natriuretic Peptide 27 (0-100) pg/ml Total Protein 5.7 L (6.0-8.3) gm/dl Albumin 3.4 (3.4-5.0) gm/dl Globulin 2.3 L (2.5-4.0) gm/dl Albumin/Globulin Ratio 1.5 (0.9-2) Lipase 31 (11-82) U/L TSH 1.877 (0.300-4.500) uIu/ml Urine Color Yellow Urine Appearance Clear (Clear) Urine pH 5.0 (4.5-7.5) Ur Specific Ringling 1.020 (1.000-1.030) Urine Protein Negative (Negative) Urine Glucose (UA) Negative (Negative) Urine Ketones Negative (Negative) Urine Blood Negative (Negative) Urine Nitrite Negative (Negative) Urine Bilirubin Negative (Negative) Urine Urobilinogen Negative (Negative) Ur Leukocyte Esterase Negative (Negative) Blood Type O Positive Blood Type Recheck Antibody Screen NEGATIVE Crossmatch See Detail 12/03/23 12/03/23 Range/Units 08:25 09:50 WBC (4.8-10.8) K/ul RBC (4.70-6.10) M/uL Hgb (14.0-18.0) g/dl Hct (42.0-52.0) % MCV (80.0-100.0) fL MCH (25.0-34.0) pg MCHC (32.0-36.0) g/dL RDW Std Deviation (36.4-46.3) fL RDW Coeff of Ingrid (11.5-14.5) % Plt Count (130-400) K/uL MPV (9.4-12.4) fL Immature Gran % (Auto) % Neut % (Auto) % Lymph % (Auto) % [place] % (Auto) % Eos % (Auto) % Baso % (Auto) % Neut # (Auto) (1.40-6.50) K/uL Lymph # (Auto) (1.20-3.40) K/uL [place] # (Auto) (0.11-0.59) K/uL Eos # (Auto) (0.00-0.50) K/uL Baso # (Auto) (0.00-0.20) K/uL Immature Gran # (Auto) (0.01-0.20) K/uL RBC Morphology PT 12.4 H (9.0-12.0) Seconds INR 1.2 H (0.9-1.1) Sodium (136-145) mmol/L Potassium (3.5-5.1) mmol/L Chloride (98-107) mmol/L Carbon Dioxide (21-32) mmol/L Anion Gap (3-11) BUN (6-23) mg/dl Creatinine (0.6-1.4) mg/dl Est Cr Clr Drug Dosing ml/min Est GFR ( Amer) ml/min Est GFR (Non-Af Amer) ml/min BUN/Creatinine Ratio (10-20) Glucose (70-99(Fasting)) mg/dl Calcium (8.6-10.3) mg/dl Total Bilirubin (0.2-1.0) mg/dl AST (13-39) U/L ALT (7-52) U/L Alkaline Phosphatase (34-104) U/L Troponin I High Sens (0-20) pg/ml B-Natriuretic Peptide (0-100) pg/ml Total Protein (6.0-8.3) gm/dl Albumin (3.4-5.0) gm/dl Globulin (2.5-4.0) gm/dl Albumin/Globulin Ratio (0.9-2) Lipase (11-82) U/L TSH (0.300-4.500) uIu/ml Urine Color Urine Appearance (Clear) Urine pH (4.5-7.5) Ur Specific [place] (1.000-1.030) Urine Protein (Negative) Urine Glucose (UA) (Negative) Urine Ketones (Negative) Urine Blood (Negative) Urine Nitrite (Negative) Urine Bilirubin (Negative) Urine Urobilinogen (Negative) Ur Leukocyte Esterase (Negative) Blood Type Blood Type Recheck O Positive Antibody Screen Crossmatch Administered Medications Lactated Ringer's (Lr) 1,000 mls @ 75 mls/hr IV .[id number] TYRON Stop: 01/02/24 17:14 Last Admin: 12/03/23 18:40 Dose: 75 mls/hr Documented By: CAROL Pantoprazole Sodium 40 mg/ (Syringe) 10 mls @ 5 mls/min IV BID TYRON Stop: 01/02/24 20:59 Last Admin: 12/04/23 07:56 Dose: 5 mls/min Documented By: Admin: 12/03/23 21:05 Dose: 5 mls/min Documented By: BARTOLO Discontinued Medications Lactated Ringer's (Lr) 1,000 mls @ 999 mls/hr IV .[id number] ONE Stop: 12/03/23 09:07 Last Infusion: 12/03/23 10:44 Dose: Infused Documented By: Admin: 12/03/23 08:28 Dose: 999 mls/hr Documented By: JACK Pantoprazole Sodium 40 mg/ (Syringe) 10 mls @ 5 mls/min IV DAILY@1100 [facility] Stop: 01/02/24 10:59 Last Admin: 12/03/23 10:11 Dose: 5 mls/min Documented By: JACK Pantoprazole Sodium 80 mg/ (Dextrose) 120 mls @ 480 mls/hr IV NOW ONE Stop: 12/03/23 10:59 Last Infusion: 12/03/23 11:22 Dose: Infused Documented By: Admin: 12/03/23 11:04 Dose: 480 mls/hr Documented By: JACK Pantoprazole Sodium 40 mg/ (Dextrose) 100 mls @ 20 mls/hr IV Q5H TYRON Stop: 01/02/24 11:59 Last Infusion: 12/03/23 19:10 Dose: Infused Documented By: Admin: 12/03/23 19:02 Dose: Not Given Documented By: Admin: 12/03/23 12:28 Dose: 8 mg/hr, 20 mls/hr Documented By: JACK Ceftriaxone Sodium (Rocephin) 1,000 mg in 50 mls @ 100 mls/hr IV ONE ONE; Protocol Stop: 12/03/23 17:44 Last Infusion: 12/03/23 21:04 Dose: Infused Documented By: Admin: 12/03/23 19:27 Dose: 100 mls/hr Documented By: BARTOLO Ioversol (Optiray 320 100ml) 94 ml IV ONCE ONE Stop: 12/03/23 09:30 Last Admin: 12/03/23 09:29 Dose: 94 ml Documented By: PRO Imaging Data Radiologist's Impression: Abdomen/Pelvis CT 12/03/23 08:[address] WITH IV CONTRAST CT DOSE: 451.57 mGy.cm HISTORY: Melena TECHNIQUE: Multiaxial CT images of the abdomen and pelvis were performed following the use of intravenous contrast. A dose lowering technique was utilized adhering to the principles of ALARA. COMPARISON STUDY: Abdomen and pelvis CT 12/27/2019. FINDINGS: Emphysema noted at the lung bases. No pneumoperitoneum. No pneumatosis. No acute fractures. Tiny bilateral fat-containing inguinal hernias. The right inguinal hernia also contains a knuckle small bowel. These have improved in the interval. The liver, spleen, and adrenal glands unremarkable. No hydronephrosis. There are 2 small hypodense lesions within the right kidney measuring up to 9 mm. This remains unchanged and favor cysts. The main portal vein is patent. 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 Otherwise, normal pancreas. There is a 3 cm infrarenal abdominal aortic aneurysm. Extensive calcified plaque within the abdominal aorta and iliac arteries. No retroperitoneal or pelvic lymphadenopathy. There is minimal edema adjacent to the second portion of the duodenum/pancreatic head best seen on image 106. There is a large duodenal diverticulum again noted. This is nonspecific and could be due to a mild duodenitis, early acute pancreatitis, or underlying peptic ulcer disease. No perforation identified at this time. No pelvic free fluid. The prostate gland is mildly enlarged. There is irregular nodular thickening and enhancement within the right bladder wall best seen on images 284 through 289. Dominant enhancing nodule on image 288 measures 7 mm. This is suspicious for a urothelial malignancy. Colonic diverticulosis. No evidence for acute diverticulitis. No bowel wall thickening or obstruction. Normal appendix. IMPRESSION: 1. There is minimal edema adjacent to the second portion of the duodenum/pancreatic head. This is nonspecific and could be due to a mild duodenitis, early acute pancreatitis, or underlying peptic ulcer disease. No perforation identified at this time. 2. Irregular nodular thickening and enhancement within the right bladder wall with a dominant 7 mm nodule as described above. This is concerning for a urothelial malignancy. Follow-up urology consultation with cystoscopy recommended for further evaluation. 3. Colonic diverticulosis. No evidence for acute diverticulitis. 4. Emphysema. 5. Additional findings as described above. ACT 112: Positive. There are findings on this exam that require communication between the performing entity and the patient following Patient Test Result Information Act ([place] Act 112) guidelines. Electronically signed by: Guilherme Srinivasan M.D. 12/03/2023 10:25 AM Chest X-Ray 12/03/23 08:07 XR chest 1V portable CLINICAL HISTORY: Hx COPD, incr SOB TECHNIQUE: Single frontal radiograph of the chest was obtained. Comparison: Comparison is made to chest radiograph 06/29/2022 FINDINGS: No lines and tubes are seen. Calcified aortic knob is seen. Emphysema is seen without acute abnormality. No evidence of pleural effusion or pneumothorax. IMPRESSION: No acute chest disease. ACT 112: Negative or not required by law. Electronically signed by: Eric Jones M.D. 12/03/2023 8:[address] 12/03/23 08:39 CT head/brain wo con CLINICAL HISTORY: dizziness Technique: Contiguous axial CT images of the head were acquired from the base of the skull to the vertex without intravenous contrast administration. Images were viewed in brain, subdural and bone windows. Automated dose lowering techniques and/or adjustment according to patient size were utilized for this exam. Comparison: None available at the time of this dictation. Findings: Hypodensity is seen in the left frontal lobe white matter. Imaged portions of the paranasal sinuses and mastoid air cells are clear. The orbits appear normal. There are no acute fractures of the calvaria or scalp swelling. 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 Clinical correlation and comparison with outside hospital exams, if available, is recommended. ACT 112: Negative or not required by law. Electronically signed by: Eric Jones M.D. 12/03/2023 10:58 AM Discharge Plan Visit Data Chief Complaint: Vertigo Stated Complaint: DIZZY,LIGHTHEADED ED Provider: Rocío Garcia Discharge Problem: Dizziness, Anemia, Melena Patient Disposition: Admitted As Inpatient Discharge Instructions Interventions: ED Discharge Assessment Last Done: 12/03/23 16:04
[2023-12-03 08:25] LABS: Appearance Urine Clear (Clear); Bilirubin Urine Negative (Negative); Blood Urine Negative (Negative); Color Urine Yellow; Glucose Urine UA Negative (Negative); Ketones Urine Negative (Negative); Leukocyte Esterase Urine Negative (Negative); Nitrite Urine Negative (Negative); Protein Urine Negative (Negative); Urobilinogen Urine Negative (Negative)
[2023-12-03] MEDS: LACTATED RINGER'S 1,000 ML IV ONE (08:28)
[2023-12-03 08:36] LABS: Basophils # (auto) 0.09 K/uL (0.00-0.20); Basophils % (auto) 0.6 %; Eosinophils # (auto) 0.09 K/uL (0.00-0.50); Eosinophils % (auto) 0.6 %; Hematocrit (blood only) 22.1 % (42.0-52.0); Hemoglobin 7.6 g/dl (14.0-18.0); Immature Granulocytes # (auto) 0.11 K/uL (0.01-0.20); Immature Granulocytes % (auto) 0.7 %; Lymphocytes # (auto) 2.18 K/uL (1.20-3.40); Lymphocytes % (auto) 13.7 %; Mean Corpuscular Hemoglobin 31.4 pg (25.0-34.0); Mean Corpuscular Hgb Conc 34.4 g/dL (32.0-36.0); Mean Corpuscular Volume 91.3 fL (80.0-100.0); Mean Platelet Volume 9.5 fL (9.4-12.4); Monocytes # (auto) 0.82 K/uL (0.11-0.59); Monocytes % (auto) 5.2 %; Neutrophils # (auto) 12.62 K/uL (1.40-6.50); Neutrophils % (auto) 79.2 %; Platelet Count 309 K/uL (130-400); RDW Coefficient of Variation 12.6 % (11.5-14.5); RDW Standard Deviation 41.5 fL (36.4-46.3); Red Blood Count 2.42 M/uL (4.70-6.10); White Blood Count 15.91 K/ul (4.8-10.8)
--- NOTE | 2023-12-03 08:41 | XRay Report ---
XR chest 1V portable CLINICAL HISTORY: Hx COPD, incr SOB TECHNIQUE: Single frontal radiograph of the chest was obtained. Comparison: Comparison is made to chest radiograph 06/29/2022 FINDINGS: No lines and tubes are seen. Calcified aortic knob is seen. Emphysema is seen without acute abnormali ty. No evidence of pleural effusion or pneumothorax. IMPRESSION: No acute chest disease. ACT 112: Negative or not required by law. Electronically signed by: Eric Jones M.D. 12/03/2023 8:39 AM
[2023-12-03 08:53] LABS: Albumin Globulin Ratio 1.5 (0.9-2); Albumin Level 3.4 gm/dl (3.4-5.0); BUN Creatinine Ratio 64.3 (10-20); Bilirubin,Total 0.4 mg/dl (0.2-1.0); Calcium 8.3 mg/dl (8.6-10.3); Creatinine Clr Calc Pharmacy 56.4 ml/min; Est GFR (African American) 92.5 ml/min; Est GFR (Non-African American) 79.8 ml/min; Globulin 2.3 gm/dl (2.5-4.0); Potassium 4.3 mmol/L (3.5-5.1); Total Protein 5.7 gm/dl (6.0-8.3)
[2023-12-03 08:59] LABS: Troponin I High Sensitivity 16.5 pg/ml (0-20)
[2023-12-03 09:02] LABS: RBC Morphology Unremarkable
[2023-12-03 09:09] LABS: Thyroid Stimulating Hormone 1.877 uIu/ml (0.300-4.500)
[2023-12-03] MEDS: OPTIRAY 320 100ml IV ONE (09:29)
[2023-12-03 09:36] LABS: INR 1.2 (0.9-1.1); Prothrombin Time 12.4 Seconds (9.0-12.0)
[2023-12-03] MEDS: PANTOprazole 40 MG in SYRINGE 0 ML IV SCH ×2 (10:11→21:05)
--- NOTE | 2023-12-03 10:27 | CT Scan Report ---
ABDOMEN AND PELVIS CT WITH IV CONTRAST CT DOSE: 451.57 mGy.cm HISTORY: Melena TECHNIQUE: Multiaxial CT images of the abdomen and pelvis were performed following the use of intrave nous contrast. A dose lowering technique was utilized adhering to the principles of ALARA. COMPARISON STUDY: Abdomen and pelvis CT 12/27/2019. FINDINGS: Emphysema noted at the lung bases. No pneumoperitoneum. No pneumatosis. No acute fractures. Tiny bilateral fat-containing inguinal hernias. The right inguinal hernia also contains a knuckle sm all bowel. These have improved in the interval. The liver, spleen, and adrenal glands unremarkable. N o hydronephrosis. There are 2 small hypodense lesions within the right kidney measuring up to 9 mm. T his remains unchanged and favor cysts. The main portal vein is patent. There is a 6 mm lipoma the march creatic head. Otherwise, normal pancreas. There is a 3 cm infrarenal abdominal aortic aneurysm. Exten sive calcified plaque within the abdominal aorta and iliac arteries. No retroperitoneal or pelvic lym phadenopathy. There is minimal edema adjacent to the second portion of the duodenum/pancreatic head b est seen on image 106. There is a large duodenal diverticulum again noted. This is nonspecific and co uld be due to a mild duodenitis, early acute pancreatitis, or underlying peptic ulcer disease. No per foration identified at this time. No pelvic free fluid. The prostate gland is mildly enlarged. There is irregular nodular thickening and enhancement within the right bladder wall best seen on images 284 through 289. Dominant enhancing nodule on image 288 measures 7 mm. This is suspicious for a urotheli al malignancy. Colonic diverticulosis. No evidence for acute diverticulitis. No bowel wall thickening or obstruction. Normal appendix. IMPRESSION: 1. There is minimal edema adjacent to the second portion of the duodenum/pancreatic head. This is non specific and could be due to a mild duodenitis, early acute pancreatitis, or underlying peptic ulcer disease. No perforation identified at this time. 2. Irregular nodular thickening and enhancement within the right bladder wall with a dominant 7 mm no dule as described above. This is concerning for a urothelial malignancy. Follow-up urology consultati on with cystoscopy recommended for further evaluation. 3. Colonic diverticulosis. No evidence for acute diverticulitis. 4. Emphysema. 5. Additional findings as described above. ACT 112: Positive. There are findings on this exam that require communication between the performing entity and the patient following Patient Test Result Information Act ([place] Act 112) guidelines. Electronically signed by: Guilherme Srinivasan M.D. 12/03/2023 10:25 AM
[2023-12-03] MEDS ORDERED: PANTOprazole 40 MG in SYRINGE DAILY IV STA (10:33)
--- NOTE | 2023-12-03 11:00 | CT Scan Report ---
CT head/brain wo con CLINICAL HISTORY: dizziness Technique: Contiguous axial CT images of the head were acquired from the base of the skull to the cyrus aniceto without intravenous contrast administration. Images were viewed in brain, subdural and bone [facility]. Automated dose lowering techniques and/or adjustment according to patient size were utilized for this exam. Comparison: None available at the time of this dictation. Findings: Hypodensity is seen in the left frontal lobe white matter. Imaged portions of the paranasal sinuses and mastoid air cells are clear. The orbits appear normal. There are no acute fractures of the calvaria or scalp swelling. 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 Clini poly correlation and comparison with outside hospital exams, if available, is recommended. ACT 112: Negative or not required by law. Electronically signed by: Eric Jones M.D. 12/03/2023 10:58 AM
[2023-12-03] MEDS: PANTOprazole 80 MG in DEXTROSE 5% 100 ML IV ONE (11:04)
--- NOTE | 2023-12-03 11:58 | History & Physical Report ---
Date of Service December 03, 2023 Assessment & Plan (1) Upper GI bleed: Plan: Patient 87-year-old gentleman with acute symptomatic anemia suspect due to upper GI blood loss with significant symptoms of near syncope and tachycardia and orthostasis at the time of presentation. Patient is at high risk for significant poor outcomes without hospital level care which includes monitoring hemoglobin, blood transfusion and specialty consultation. Admit to medical floor Due to the patient's significant symptoms we will transfuse 1 unit of packed red blood cells Continue IV Protonix Consult GI Discontinue aspirin Clear liquid diet Monitor hemoglobin and hematocrit (2) Acute blood loss anemia: Plan: Transfuse 1 unit packed red blood cells (3) COPD (chronic obstructive pulmonary disease): Plan: Patient does not report any inhalers at home. Will have DuoNebs available as needed Admission and Anticipated Discharge Date Admission Date: 12/03/2023 Anticipated date of discharge: 12/05/23 History of Present Illness Chief Complaint: Dizzy with near syncopal symptoms Primary Care Provider: Ciro Zayas MD Patient is a 87-year-old gentleman who is still very active and works at [employer]. Over the last several days has been noticing lightheadedness and dizziness. Last night got to the point where he felt like he almost passed out when he stood up. He is also over the last few days has been noticing black stools. He denies seeing any bright red blood. However this was a significant change in his stool color. Due to the fact that he was feeling so weak and lightheaded he drove to the emergency room today. He reports as he was getting out of his car in the emergency room he almost passed out had to hold onto a post that was next to his car. He denies any fever or chills. He denies any true vertigo. He denies any abdominal pain. Denies any changes in his dietary habits. No changes in his bladder habits. He denies any chest pain or palpitations. He admits to some chronic shortness of breath which he attributes to his emphysema but does admit to being more short of breath with exertion over the past few days. He denies any excessive NSAID use. He does take an aspirin daily. He reports that he had a history of diverticular bleed in the past but has never had any issues with heartburn, reflux or known peptic ulcer disease. He quit smoking several years ago. Denies any current alcohol use. Allergies Allergy/AdvReac Type Severity Reaction Status Date / Time No Known Allergies Allergy Mild Unverified 12/03/23 10:27 Home Medications Medication Instructions Recorded Confirmed Type atorvastatin 40 mg tablet 40 mg PO QPM 12/27/19 12/03/23 History cholecalciferol (vitamin D3) 25 25 mcg PO HS 12/27/19 12/03/23 History mcg (1,000 unit) tablet (Vitamin D3) multivitamin 1 tab PO HS 12/27/19 12/03/23 History aspirin 325 mg tablet 325 mg PO HS 12/03/23 12/03/23 History fluoride (sodium) 1.1 % dental 1 applic PO DAILY 12/03/23 12/03/23 History paste (PreviDent 5000 Booster Plus) sildenafil 100 mg tablet 100 mg PO DAILY PRN Sexual Activity 12/03/23 12/03/23 History trazodone 50 mg tablet 50 mg PO HS PRN Insomnia 12/03/23 12/03/23 History Past Med/Surg History Problem List Upper GI bleed Acute blood loss anemia Melena (Acute) Anemia (Acute) Dizziness (Acute) Lumbar paraspinal muscle spasm (Acute) HLD (hyperlipidemia) COPD (chronic obstructive pulmonary disease) Medical History No pertinent family history Surgical History No pertinent past surgical history Social History Smoking Status: Former smoker Tobacco Type: Cigarettes Cigarettes Per Day: 20; Second Hand Exposure: Yes; Do You Dip or Chew Tobacco: No; Hx Alcohol Use: No Hx Substance Use: No Preferred Language: Chinese Communication Ability: Effective 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 Sclera clear Neck: Soft, no adenopathy Lungs: Clear to auscultation, decreased, no wheezes rales or rhonchi, prolonged expiratory phase CV: S1-S2, regular Abdomen: Soft, nontender, nondistended, no guarding, no rigidity Extremities: No significant edema Musculoskeletal: No significant joint tenderness Neuro: No focal deficits Psych: Cooperative, normal mood Results & Data Results & Data Vital Signs (Past 12 Hours) Vital Signs Temp Pulse Pulse Resp BP BP Pulse Ox 12/03/23 09:48 58 L 18 139/66 95 12/03/23 08:16 91 H 12/03/23 07:47 100 H 22 131/57 L 94 12/03/23 07:28 36.2 C L 106 H 20 115/61 96 O2 Del Method 12/03/23 09:48 Room Air 12/03/23 08:16 12/03/23 07:47 Room Air 12/03/23 07:28 Room Air Laboratory Results Reviewed imaging, laboratory and diagnostic studies. Pertinent findings as below. WBC is 15.9 Hemoglobin 7.6, did significantly decline from previous readings Lipase 31 TSH 1.8 Personally reviewed chest x-ray, hyperinflated lungs, emphysematous changes, no consolidative infiltrates Personally reviewed EKG, sinus rhythm with PVCs, nonspecific ST-T wave changes
[2023-12-03] MEDS: PANTOprazole 40 MG in DEXTROSE 5% MINI-B 100 ML IV SCH (12:28)
--- NOTE | 2023-12-03 14:22 | Electrocardiogram Report ---
Test Reason : Blood Pressure : / mmHG Vent. Rate : 096 BPM Atrial Rate : 096 BPM P-R Int : 136 ms QRS Dur : 080 ms QT Int : 358 ms P-R-T Axes : 079 070 058 degrees QTc Int : 452 ms Sinus rhythm with occasional Premature ventricular complexes Nonspecific ST abnormality Abnormal ECG When compared with ECG of 30-AUG-2021 16:01, Nonspecific T wave abnormality now evident in Inferior leads T wave amplitude has decreased in Lateral leads Confirmed by Moustapha Calloway ([id number]) on 12/03/2023 2:22:22 PM Referred By: REFERRED SELF Confirmed By:Wayne Calloway
[2023-12-03] MEDS ORDERED: SODIUM CHLORIDE 0.9% 250 ML IV PRN ×2 (17:02→19:21)
[2023-12-03] MEDS ORDERED: ALBUT/IPRATROP 3MG/0.5MG NEB 3 ML VIAL NEB PRN (17:02)
[2023-12-03] MEDS: LACTATED RINGER'S 1,000 ML IV SCH (18:40)
[2023-12-03 19:12] LABS: Hematocrit (blood only) 18.7 % (42.0-52.0); Hemoglobin 6.3 g/dl (14.0-18.0)
[2023-12-03] MEDS: cefTRIAXone SODIUM 1,000 MG/50 ML BAG IV ONE (19:27)
[2023-12-04 01:03] LABS: Hemoglobin 7.4 g/dl (14.0-18.0)
[2023-12-04] MEDS ORDERED: SODIUM CHLORIDE 0.9% 250 ML IV PRN (02:24)
[2023-12-04 08:06] LABS: Hematocrit (blood only) 25.2 % (42.0-52.0); Hemoglobin 8.8 g/dl (14.0-18.0); Mean Corpuscular Hemoglobin 30.4 pg (25.0-34.0); Mean Corpuscular Hgb Conc 34.9 g/dL (32.0-36.0); Mean Corpuscular Volume 87.2 fL (80.0-100.0); Mean Platelet Volume 9.2 fL (9.4-12.4); Nucleated RBC # (auto) 0.02 K/uL (0.00-0.12); Nucleated RBC % (auto) 0.2 %; Platelet Count 229 K/uL (130-400); RDW Coefficient of Variation 13.9 % (11.5-14.5); RDW Standard Deviation 43.2 fL (36.4-46.3); Red Blood Count 2.89 M/uL (4.70-6.10); White Blood Count 11.11 K/ul (4.8-10.8)
[2023-12-04 08:22] LABS: BUN Creatinine Ratio 29.5 (10-20); Calcium 7.9 mg/dl (8.6-10.3); Creatinine Clr Calc Pharmacy 60.7 ml/min; Est GFR (African American) 95.4 ml/min; Est GFR (Non-African American) 82.3 ml/min; Potassium 3.8 mmol/L (3.5-5.1)
--- NOTE | 2023-12-04 09:54 | Gastrointestinal Consultation ---
Date of Consultation December 04, 2023 Assessment & Plan (1) Melena: (2) Anemia: Plan 87 year old male who presented to the ED with complaints of dizziness, lightheadedness and melena. he does use 325mcg of Aspirin daily. patient unfortunately had a diet today and had eaten breakfast. history of cecal AVM. - monitor hgb/hct. transfuse as needed. - continue with protonix 40mg IV bid. - can monitor over the weekend and consider EGD/Colonoscopy for next week. Supervising Physician Co-Signing Physician Notes Agree with FLORIAN Pop as above Interviewed and examined patient and agree with above Abd: Soft, NT, ND, +BS Continue current therapy and supportive care Patient was fed this AM, and therefore cannot proceed with EGD today Dr. Myles will cover over the weekend History of Present Illness Reason for Consultation: GIB Requesting Physician: Theresa Arizmendi MD Attending Physician: Theresa Arizmendi MD History of Present Illness Patient is an 87 year old gentleman who presented to the ED over issues with worsening lightheadedness and dizziness. He also reports that over the last few days he has been noticing black stools - he is not sure exactly how long that has been going on. he tells me that his bowel habits do change and sometimes he can go a few times a day and other times very little. he admits to daily 325mg aspirin use. He denies seeing any bright red blood. Upon evaluation in the ED he was found to have a hgb of 7.6 on 12/02. This fell to as low as 6.3. He was given 2 units of PRBC and his hgb has improved to 8.8 today. He had his last EGD and colonoscopy done at [facility] in 2020 showing cecal AVM, diverticulosis, internal hemorrhoids, duodenal diverticuli, nodular duodenum. Patient denies any current issues with nausea, vomiting, dysphagia, heartburn, abdominal pain, unintentional weight loss, or bright red blood per rectum. Patient unfortunately was given a tray of breakfast this morning and had eaten by the time I saw him. He tells me that since admission he has only had one darker stool. Allergies Allergy/AdvReac Type Severity Reaction Status Date / Time No Known Allergies Allergy Mild Unverified 12/03/23 10:27 Home Medications Medication Instructions Recorded Confirmed Type atorvastatin 40 mg tablet 40 mg PO QPM 12/27/19 12/03/23 History cholecalciferol (vitamin D3) 25 25 mcg PO HS 12/27/19 12/03/23 History mcg (1,000 unit) tablet (Vitamin D3) multivitamin 1 tab PO HS 12/27/19 12/03/23 History aspirin 325 mg tablet 325 mg PO HS 12/03/23 12/03/23 History fluoride (sodium) 1.1 % dental 1 applic PO DAILY 12/03/23 12/03/23 History paste (PreviDent 5000 Booster Plus) sildenafil 100 mg tablet 100 mg PO DAILY PRN Sexual Activity 12/03/23 12/03/23 History trazodone 50 mg tablet 50 mg PO HS PRN Insomnia 12/03/23 12/03/23 History Patient History Medical History No pertinent family history Surgical History No pertinent past surgical history Social History Smoking Status: Former smoker Tobacco Type: Cigarettes Cigarettes Per Day: 20; Second Hand Exposure: Yes; Do You Dip or Chew Tobacco: No; Hx Alcohol Use: No Hx Substance Use: No Preferred Language: Slovenian Communication Ability: Effective Cv/Cvn Cv Tsc System Operator Required: No Beliefs That Will Affect Care: None marital status: Current Living Situation: Family Current Living Situation Comment: lives with brother Feels Safe at Home: Yes Assistive Devices: None Review of Systems Review of Systems: All systems reviewed & are unremarkable except as noted in HPI & below Physical Exam Constitutional: WD/WN, vitals as above Respiratory: normal respiratory effort, lungs clear to auscultation Cardiovascular: RRR, no murmur, no edema Gastrointestinal (Abdomen): normal bowel sounds, soft, nontender, no h epatosplenomegaly Psychiatric: Orientation: alert and oriented x 3 Affect: euthymic affect Results & Data Vital Signs (Past 12 Hours) Vital Signs Temp Pulse Resp BP Pulse Ox 12/04/23 06:09 97.9 F 72 16 131/74 96 12/04/23 06:08 97.9 F 72 16 131/74 96 12/04/23 05:43 97.9 F 83 16 139/76 94 12/04/23 04:43 98.2 F 70 16 114/72 94 12/04/23 04:13 98.2 F 74 16 117/64 93 12/04/23 03:58 98.2 F 71 18 117/68 94 12/04/23 03:32 98.1 F 84 18 128/70 96 12/03/23 23:28 97.9 F 84 18 134/71 93 12/03/23 22:26 97.7 F 76 18 134/68 94 Coding Level of Care Code 32172 INT INP/OBS CARE 2/55MIN Diagnoses Melena K92.1 Anemia D64.9
--- NOTE | 2023-12-04 12:40 | Hospitalist Progress Note ---
Date of Service December 04, 2023 Assessment & Plan (1) Upper GI bleed: Plan 87-year-old male with PMH of HLD, COPD - group D, PVD, AAA, frequent PVCs, NSVT, RLS, senile osteoporosis, alcohol dependence presented to the ED 12/02 for ongoing lightheadedness and dizziness associated with blackish stool more than 1 week duration. He reports taking aspirin 325 mg daily since many years. He is being managed for the following: Upper GI bleed Symptomatic anemia Acute blood loss anemia likely secondary to upper GI bleed Patient coming in with lightheadedness or dizziness, Orthostasis at presentation, black stool of more than 1 week duration at presentation. Admitting hemoglobin of 7.6, dropped to 6.3, needed 1 unit PRBC, currently hemoglobin greater than 8. Patient reports feeling better, continue with IV PPI and clear liquid diet. Hold aspirin. Continue with IV fluid, GI on board, appreciate recommendation. Likely scope on Thursday. NPO midnigt Thursday. Monitor HnH. Transfuse for symptomatic anemia or hemoglobin less than 7. Other chronic medical conditions: HLD/COPDcontinue with/resume home meds as and when able. DVT prophylaxis: SCDs, re: GI bleed Admission and Anticipated Discharge Date Admission Date: December 03, 2023 Subjective Patient was seen and examined at bedside. He was sitting up in bed, on room air, NAD, resting comfortably. Patient reports ongoing black stool, denies fresh blood, denies abdominal pain. Patient reports taking aspirin 325 mg daily for long time. Patient denies taking any other NSAIDs. Patient denies any febrile illness or chest pain or shortness of breath or cough or dizziness. Physical Exam Physical Exam: GENERAL: Alert and oriented x3. NAD, on RA. HEENT: No pallor, no icterus. Pupils equal, round and reactive to light. Oral mucosa moist. NECK: No JVD, no neck masses. HEART: S1 and S2 heard. Regular rate and rhythm. No murmur, no gallop. RESPIRATORY SYSTEM: Normal AP diameter. No accessory muscle use. No wheezing, no crackles. ABDOMEN: Soft, bowel sounds present, nontender, no distention. CENTRAL NERVOUS SYSTEM: No facial droop. Speech is clear. Obeys simple commands. Moves extremities. EXTREMITIES: No edema, no erythema seen. Results & Data Results & Data Vital Signs (Past 12 Hours) Vital Signs Temp Pulse Resp BP Pulse Ox 12/04/23 06:09 36.6 C 72 16 131/74 96 12/04/23 06:08 36.6 C 72 16 131/74 96 12/04/23 05:43 36.6 C 83 16 139/76 94 12/04/23 04:43 36.8 C 70 16 114/72 94 12/04/23 04:13 36.8 C 74 16 117/64 93 12/04/23 03:58 36.8 C 71 18 117/68 94 12/04/23 03:32 36.7 C 84 18 128/70 96
[2023-12-04 14:15] LABS: Hematocrit (blood only) 24.4 % (42.0-52.0); Hemoglobin 8.5 g/dl (14.0-18.0)
[2023-12-04] MEDS: cefTRIAXone SODIUM 1,000 MG/50 ML BAG IV SCH (17:47)
[2023-12-04] MEDS: ATORVASTATIN 40 MG TAB PO SCH (21:28)
[2023-12-04] MEDS: CHOLECALCIFEROL 25 MCG (1000 UNITS) TAB PO SCH (21:28)
[2023-12-04] MEDS: MULTIVITAMIN TAB PO SCH (21:29)
[2023-12-04 22:00] LABS: Hematocrit (blood only) 24.3 % (42.0-52.0); Hemoglobin 8.6 g/dl (14.0-18.0)
[2023-12-05] MEDS: traZODone HCL 50 MG TAB PO PRN (00:48)
[2023-12-05 06:22] LABS: Hematocrit (blood only) 23.3 % (42.0-52.0); Hemoglobin 8.1 g/dl (14.0-18.0); Mean Corpuscular Hemoglobin 30.8 pg (25.0-34.0); Mean Corpuscular Hgb Conc 34.8 g/dL (32.0-36.0); Mean Corpuscular Volume 88.6 fL (80.0-100.0); Platelet Count 222 K/uL (130-400); RDW Standard Deviation 44.2 fL (36.4-46.3); Red Blood Count 2.63 M/uL (4.70-6.10); White Blood Count 6.95 K/ul (4.8-10.8)
[2023-12-05 06:32] LABS: BUN Creatinine Ratio 15.1 (10-20); Calcium 7.6 mg/dl (8.6-10.3); Creatinine Clr Calc Pharmacy 64.9 ml/min; Est GFR (Non-African American) 84.6 ml/min; Magnesium 1.7 mg/dl (1.7-2.4); Phosphorus 3.1 mg/dl (2.5-4.9); Potassium 3.7 mmol/L (3.5-5.1)
--- NOTE | 2023-12-05 16:39 | Hospitalist Progress Note ---
Date of Service December 05, 2023 Assessment & Plan (1) Upper GI bleed: Plan 87-year-old male with PMH of HLD, COPD - group D, PVD, AAA, frequent PVCs, NSVT, RLS, senile osteoporosis, alcohol dependence presented to the ED 12/02 for ongoing lightheadedness and dizziness associated with blackish stool more than 1 week duration. He reports taking aspirin 325 mg daily since many years. He is being managed for the following: Upper GI bleed Symptomatic anemia Acute blood loss anemia likely secondary to upper GI bleed Patient coming in with lightheadedness or dizziness, Orthostasis at presentation, black stool of more than 1 week duration at presentation. Admitting hemoglobin of 7.6, dropped to 6.3, needed 1 unit PRBC, currently hemoglobin greater than 8. Patient reports feeling better, continue with IV PPI and clear liquid diet. Hold aspirin. Continue with IV fluid, GI on board, appreciate recommendation. Likely scope on Thursday. NPO midnigt Thursday. Monitor HnH. Transfuse for symptomatic anemia or hemoglobin less than 7. Pt remains hemodynamically stable. Other chronic medical conditions: HLD/COPDcontinue with/resume home meds as and when able. DVT prophylaxis: SCDs, re: GI bleed Full code. Admission and Anticipated Discharge Date Admission Date: December 03, 2023 Subjective Patient was seen and examined at bedside. He was sitting up in bed, on room air, NAD, resting comfortably. Patient reports ongoing black stool but support clerk dark now, denies fresh blood, denies abdominal pain. Patient denies any febrile illness or chest pain or shortness of breath or cough or dizziness. Physical Exam Physical Exam: GENERAL: Alert and oriented x3. NAD, on RA. HEENT: No pallor, no icterus. Pupils equal, round and reactive to light. Oral mucosa moist. NECK: No JVD, no neck masses. HEART: S1 and S2 heard. Regular rate and rhythm. No murmur, no gallop. RESPIRATORY SYSTEM: Normal AP diameter. No accessory muscle use. No wheezing, no crackles. ABDOMEN: Soft, bowel sounds present, nontender, no distention. CENTRAL NERVOUS SYSTEM: No facial droop. Speech is clear. Obeys simple commands. Moves extremities. EXTREMITIES: No edema, no erythema seen. Results & Data Results & Data Vital Signs (Past 12 Hours) Vital Signs Temp Pulse Pulse Resp BP Pulse Ox O2 Del Method 12/05/23 15:30 36.6 C 74 18 131/71 96 Room Air 12/05/23 15:28 74 12/05/23 11:31 36.4 C L 71 18 131/67 96 Room Air 12/05/23 07:35 Room Air 12/05/23 07:25 59 L 12/05/23 07:23 36.6 C 67 18 153/67 H 94 Room Air
[2023-12-06 06:44] LABS: Hematocrit (blood only) 24.6 % (42.0-52.0); Hemoglobin 8.4 g/dl (14.0-18.0); Mean Corpuscular Hemoglobin 30.5 pg (25.0-34.0); Mean Corpuscular Hgb Conc 34.1 g/dL (32.0-36.0); Mean Corpuscular Volume 89.5 fL (80.0-100.0); Mean Platelet Volume 9.2 fL (9.4-12.4); Platelet Count 233 K/uL (130-400); RDW Coefficient of Variation 14.3 % (11.5-14.5); RDW Standard Deviation 43.8 fL (36.4-46.3); Red Blood Count 2.75 M/uL (4.70-6.10); White Blood Count 5.88 K/ul (4.8-10.8)
[2023-12-06 07:10] LABS: BUN Creatinine Ratio 8.8 (10-20); Calcium 7.7 mg/dl (8.6-10.3); Creatinine Clr Calc Pharmacy 56.5 ml/min; Est GFR (African American) 94.4 ml/min; Est GFR (Non-African American) 81.5 ml/min; Magnesium 1.7 mg/dl (1.7-2.4); Potassium 3.6 mmol/L (3.5-5.1)
[2023-12-06] MEDS: POTASSIUM CHLORIDE CRTAB 20 MEQ TABCR PO STA (08:15)
[2023-12-06] MEDS: MAGNESIUM SULFATE / D5W 1 GM/100 ML BAG IV ONE (08:16)
--- NOTE | 2023-12-06 15:57 | Hospitalist Progress Note ---
Date of Service December 06, 2023 Assessment & Plan (1) Upper GI bleed: Plan 87-year-old male with PMH of HLD, COPD - group D, PVD, AAA, frequent PVCs, NSVT, RLS, senile osteoporosis, alcohol dependence presented to the ED 12/02 for ongoing lightheadedness and dizziness associated with blackish stool more than 1 week duration. He reports taking aspirin 325 mg daily since many years. He is being managed for the following: Upper GI bleed Symptomatic anemia Acute blood loss anemia likely secondary to upper GI bleed Patient coming in with lightheadedness or dizziness, Orthostasis at presentation, black stool of more than 1 week duration at presentation. Admitting hemoglobin of 7.6, dropped to 6.3, needed 1 unit PRBC, currently hemoglobin greater than 8. Patient reports feeling better, continue with IV PPI and clear liquid diet. Hold aspirin. GI on board, appreciate recommendation. Likely scope on Thursday. NPO midnigt Thursday. Monitor HnH. Transfuse for symptomatic anemia or hemoglobin less than 7. Pt remains hemodynamically stable. Other chronic medical conditions: HLD/COPDcontinue with/resume home meds as and when able. DVT prophylaxis: SCDs, re: GI bleed Full code. Admission and Anticipated Discharge Date Admission Date: December 03, 2023 Subjective Patient was seen and examined at bedside. He was sitting up in bed, on room air, NAD, resting comfortably. Patient reports no stool since yesterday, denies abdominal pain. Patient denies any febrile illness or chest pain or shortness of breath or cough or dizziness. Physical Exam Physical Exam: GENERAL: Alert and oriented x3. NAD, on RA. HEENT: No pallor, no icterus. Pupils equal, round and reactive to light. Oral mucosa moist. NECK: No JVD, no neck masses. HEART: S1 and S2 heard. Regular rate and rhythm. No murmur, no gallop. RESPIRATORY SYSTEM: Normal AP diameter. No accessory muscle use. No wheezing, no crackles. ABDOMEN: Soft, bowel sounds present, nontender, no distention. CENTRAL NERVOUS SYSTEM: No facial droop. Speech is clear. Obeys simple commands. Moves extremities. EXTREMITIES: No edema, no erythema seen. Results & Data Results & Data Vital Signs (Past 12 Hours) Vital Signs Temp Pulse Pulse Resp BP Pulse Ox O2 Del Method 12/06/23 15:03 70 12/06/23 14:59 36.8 C 70 20 111/70 94 Room Air 12/06/23 11:13 36.8 C 67 20 116/71 92 Room Air 12/06/23 07:34 37.1 C 66 20 117/68 93 Room Air 12/06/23 07:10 Room Air 12/06/23 06:57 83 12/06/23 04:02 37.0 C 68 20 96/59 L 92 Room Air
[2023-12-06] MEDS: POLYETHYLENE (MIRALAX) 17 GM PACK PO SCH (17:11)
[2023-12-07 06:35] LABS: Hematocrit (blood only) 26.4 % (42.0-52.0); Hemoglobin 8.9 g/dl (14.0-18.0); Mean Corpuscular Hemoglobin 30.6 pg (25.0-34.0); Mean Corpuscular Hgb Conc 33.7 g/dL (32.0-36.0); Mean Corpuscular Volume 90.7 fL (80.0-100.0); Mean Platelet Volume 9.2 fL (9.4-12.4); Platelet Count 248 K/uL (130-400); RDW Coefficient of Variation 14.7 % (11.5-14.5); RDW Standard Deviation 44.5 fL (36.4-46.3); Red Blood Count 2.91 M/uL (4.70-6.10); White Blood Count 6.65 K/ul (4.8-10.8)
[2023-12-07 06:56] LABS: BUN Creatinine Ratio 6.7 (10-20); Calcium 7.9 mg/dl (8.6-10.3); Creatinine Clr Calc Pharmacy 51.2 ml/min; Est GFR (African American) 90.4 ml/min; Magnesium 1.9 mg/dl (1.7-2.4); Phosphorus 3.7 mg/dl (2.5-4.9); Potassium 3.8 mmol/L (3.5-5.1)
--- NOTE | 2023-12-07 09:18 | History & Physical Bridge Note ---
Date of Service December 07, 2023 History & Physical Bridge Note I have examined the patient, reviewed the History & Physical and in the interval since the performance of the History & Physical I have noted the following changes of clinical significance: no changes noted. 87 year old male who presented to the ED with complaints of dizziness, lightheadedness and melena. he prepped over the weekend. stools clear per patient. no sob or chest pain. he is planned for EGD and colonoscopy today to evaluate anemia and history of melena. Supervising Physician Co-Signing Physician Notes Agree with FLORIAN Pop as above Abd: Soft, NT, ND, +BS Continue current therapy and supportive care Proceed with EGD and colonoscopy now
--- NOTE | 2023-12-07 11:40 | Anesthesiology Consultation ---
Date of Service December 07, 2023 Assessment & Plan Chart Review Chart Review: Acceptable Risk for Surgery and Patient NOT seen in Pre Admission Testing Consults Requested none ASA ASA4 Proposed Anesthesia Anesthesia Type: MAC History Surgery Operation Date: 12/07/23 16:30 Proposed Procedures p Colonoscopy EGD Dr. Sathish Garcia Case, DO Height/Weight Height: 5 ft 8 in Weight: 59.6 kg Allergies Allergy/AdvReac Type Severity Reaction Status Date / Time No Known Allergies Allergy Mild Unverified 12/03/23 10:27 Medications Home Medications Medication Instructions Recorded Confirmed Last Taken atorvastatin 40 mg tablet 40 mg PO QPM 12/27/19 12/03/23 12/02/23 cholecalciferol (vitamin D3) 25 25 mcg PO HS 12/27/19 12/03/23 12/02/23 mcg (1,000 unit) tablet (Vitamin D3) multivitamin 1 tab PO HS 12/27/19 12/03/23 12/02/23 aspirin 325 mg tablet 325 mg PO HS 12/03/23 12/03/23 12/02/23 fluoride (sodium) 1.1 % dental 1 applic PO DAILY 12/03/23 12/03/23 12/02/23 paste (PreviDent 5000 Booster Plus) sildenafil 100 mg tablet 100 mg PO DAILY PRN Sexual Activity 12/03/23 12/03/23 Unknown trazodone 50 mg tablet 50 mg PO HS PRN Insomnia 12/03/23 12/03/23 12/02/23 Active Medications Generic Name Dose Route Start Last Admin Trade Name Freq PRN Reason Stop Dose Admin Atorvastatin Calcium 40 mg 12/04/23 21:00 12/06/23 20:17 Atorvastatin 40 Mg Tab PO 01/03/24 20:59 40 mg QPM TYRON Administration Ceftriaxone Sodium 1,000 mg in 50 mls @ 100 mls/hr 12/04/23 17:30 12/06/23 17:37 Rocephin IV 12/14/23 17:29 Infused Q24H TYRON Infusion Protocol Pantoprazole Sodium 40 mg/ 10 mls @ 5 mls/min 12/03/23 21:00 12/07/23 08:12 Syringe IV 01/02/24 20:59 5 mls/min BID TYRON Administration Multivitamins 1 tab 12/04/23 21:00 12/06/23 20:17 Multivitamin Tab PO 01/03/24 20:59 1 tab HS TYRON Administration Trazodone HCl 50 mg 12/03/23 17:02 12/05/23 20:48 Trazodone Hcl 50 Mg Tab PO 01/02/24 17:01 50 mg HS PRN Administration Insomnia Vitamin D 25 mcg 12/04/23 21:00 12/06/23 20:17 Cholecalciferol 25 Mcg (1000 Units) Tab PO 01/03/24 20:59 25 mcg HS TYRON Administration Past Medical History Medical History No pertinent family history Exercise / Class Metabolic Activity III < 4 Walking/Shop/Light housework Past Surgical History Surgical History No pertinent past surgical history Past Anesthesia History No Hx of Anesthesia Complications and No Family Hx of Anesthesia Complications History of PONV No Hx of PONV and No Hx of Motion Sickness Social History Smoking Status: Former smoker tobacco type: cigarettes Smoking cigarettes per day: 20 Do You Dip or Chew Tobacco: No Hx Alcohol Use: No Hx Substance Use: No substance use type: does not use Physical Exam Vital Signs Last Vital Signs Temp 36.8 C 12/07/23 07:51 Pulse 84 12/07/23 07:51 Resp 16 12/07/23 07:51 BP 129/72 12/07/23 07:51 Pulse Ox 94 12/07/23 07:51 O2 Del Method Room Air 12/07/23 07:51 Testing Laboratory Results 12/07/23 06:12 12/07/23 06:12 PT 12.4 Seconds (9.0-12.0) H 12/03/23 08:25 INR 1.2 (0.9-1.1) H 12/03/23 08:25 Urine Color Yellow 12/03/23 08:03 Urine Appearance Clear (Clear) 12/03/23 08:03 Urine pH 5.0 (4.5-7.5) 12/03/23 08:03 Ur Specific [place] 1.020 (1.000-1.030) 12/03/23 08:03 Urine Protein Negative (Negative) 12/03/23 08:03 Urine Glucose (UA) Negative (Negative) 12/03/23 08:03 Urine Ketones Negative (Negative) 12/03/23 08:03 Urine Nitrite Negative (Negative) 12/03/23 08:03 Ur Leukocyte Esterase Negative (Negative) 12/03/23 08:03 Blood Type O Positive 12/03/23 08:21 Antibody Screen NEGATIVE 12/03/23 08:21 Electrocardiogram Date: 12/03/23 Findings: + NSR @ (SR @ 96w/ occas. PVC's) and + NSST changes Chest X-Ray Date: 12/03/23 Findings: + NAD, + atherosclerosis of thoracic aorta and + other (C/W emphysema)
[2023-12-07] MEDS ORDERED: ATROPINE SULFATE 0.1 MG/ML 10ML SYR IV PRN (12:10)
[2023-12-07] MEDS ORDERED: ePHEDrine sulfate 50 MG/ML AMP IV PRN (12:10)
--- NOTE | 2023-12-07 13:21 | GI REPORT ---
Patient Name: Juan Vazquez Procedure Date: 12/07/2023 12:51 PM Date of : 1935 Admit Type: Inpatient Age: 87 Gender: Male Attending MD: Armani Bower DO, Procedure: Upper GI endoscopy Providers: Armani Bower DO Referring MD: Theresa Arizmendi MD Indications: Melena Medicines: Monitored Anesthesia Care Complications: No immediate complications. Estimated Blood Loss: Estimated blood loss: none. Procedure: Pre-Anesthesia Assessment: - Prior to the procedure, a History and Physical was performed, and patient medications and allergies were reviewed. The patient's tolerance of previous anesthesia was also reviewed. The risks and benefits of the procedure and the sedation options and risks were discussed with the patient. All questions were answered, and informed consent was obtained. Prior Anticoagulants: The patient has taken no anticoagulant or antiplatelet agents except for aspirin. ASA Grade Assessment: IV - A patient with severe systemic disease that is a constant threat to life. After reviewing the risks and benefits, the patient was deemed in satisfactory condition to undergo the procedure. After obtaining informed consent, the endoscope was passed under direct vision. Throughout the procedure, the patient's blood pressure, pulse, and oxygen saturations were monitored continuously. The Endoscope was introduced through the mouth, and advanced to the third part of duodenum. The upper GI endoscopy was accomplished without difficulty. The patient tolerated the procedure well. Findings: The esophagus was normal. The stomach was normal. A moderate post-ulcer deformity was found in the duodenal bulb. Impression: - Normal esophagus. - Normal stomach. - Duodenal deformity. - No specimens collected. Recommendation: - [facility] patient [facility] for [facility] care. - Advance diet as tolerated. - Continue present medications. Armani Bower DO 12/07/2023 1:20:47 PM This report has been signed electronically. Note Initiated On: 12/07/2023 12:51 PM Number of Addenda: 0 I attest to the content of the Intraoperative Record and orders documented therein, exceptions below {[id number]}
--- NOTE | 2023-12-07 13:26 | GI REPORT ---
Patient Name: Juan Vazquez Procedure Date: 12/07/2023 12:39 PM Date of : 1935 Admit Type: Inpatient Age: 87 Gender: Male Attending MD: Armani Bower DO, Procedure: Colonoscopy Providers: Armani Bower DO Referring MD: Theresa Arizmendi MD Indications: Melena Medicines: Monitored Anesthesia Care Complications: No immediate complications. Estimated Blood Loss: Estimated blood loss: none. Procedure: Pre-Anesthesia Assessment: - Prior to the procedure, a History and Physical was performed, and patient medications and allergies were reviewed. The patient's tolerance of previous anesthesia was also reviewed. The risks and benefits of the procedure and the sedation options and risks were discussed with the patient. All questions were answered, and informed consent was obtained. Prior Anticoagulants: The patient has taken no anticoagulant or antiplatelet agents except for aspirin. ASA Grade Assessment: IV - A patient with severe systemic disease that is a constant threat to life. After reviewing the risks and benefits, the patient was deemed in satisfactory condition to undergo the procedure. After I obtained informed consent, the scope was passed under direct vision. Throughout the procedure, the patient's blood pressure, pulse, and oxygen saturations were monitored continuously. The Colonoscope was introduced through the anus and advanced to the terminal ileum. The colonoscopy was performed without difficulty. The patient tolerated the procedure well. The quality of the bowel preparation was good. The terminal ileum, ileocecal valve, appendiceal orifice, and rectum were photographed. Findings: The perianal and digital rectal examinations were normal. Multiple small-mouthed diverticula were found in the sigmoid colon. Internal hemorrhoids were found during retroflexion. The hemorrhoids were small. Impression: - Diverticulosis in the sigmoid colon. - Internal hemorrhoids. - No specimens collected. Recommendation: - Return patient to [facility] for ongoing care. - Advance diet as tolerated. - Repeat colonoscopy in 5 years for surveillance. Armani Bower DO 12/07/2023 1:26:14 PM This report has been signed electronically. Note Initiated On: 12/07/2023 12:39 PM Number of Addenda: 0 I attest to the content of the Intraoperative Record and orders documented therein, exceptions below {[id number]}
--- NOTE | 2023-12-07 13:28 | Anesthesiology Progress Note ---
Date of Service December 07, 2023 Anesthesia Post Procedure Vital Signs Vital Signs: Temp Pulse Pulse Pulse Resp BP BP 12/07/23 13:20 83 18 108/47 L 12/07/23 11:57 37.2 C 68 68 18 147/60 H 12/07/23 11:38 36.8 C 71 16 132/71 12/07/23 07:51 36.8 C 84 16 129/72 12/07/23 07:09 12/07/23 06:49 69 12/07/23 04:07 37.4 C 64 18 114/69 12/06/23 23:34 37.2 C 72 20 145/66 H 12/06/23 21:59 12/06/23 21:50 70 12/06/23 20:00 12/06/23 19:36 36.9 C 68 18 132/68 12/06/23 15:03 70 12/06/23 14:59 36.8 C 70 20 111/70 Pulse Ox O2 Del Method O2 Del Method 12/07/23 13:20 92 Room Air 12/07/23 11:57 95 Room Air 12/07/23 11:38 93 Room Air 12/07/23 07:51 94 Room Air 12/07/23 07:09 Room Air 12/07/23 06:49 12/07/23 04:07 92 Room Air 12/06/23 23:34 94 Room Air 12/06/23 21:59 Room Air 12/06/23 21:50 12/06/23 20:00 Room Air 12/06/23 19:36 95 Room Air 12/06/23 15:03 12/06/23 14:59 94 Room Air Transfer of Care Handoff Completed per policy Notes Mental Status: alert / awake / arousable Patient Amnestic to Procedure: Yes Nausea / Vomiting: adequately controlled Pain: adequately controlled Airway Patency, RR, SpO2: stable & adequate BP & HR: stable & adequate Hydration State: stable & adequate Anesthetic Complications: no major complications apparent
--- NOTE | 2023-12-07 14:18 | Hospitalist Progress Note ---
Date of Service December 07, 2023 Assessment & Plan (1) Upper GI bleed: Plan 87-year-old male with PMH of HLD, COPD - group D, PVD, AAA, frequent PVCs, NSVT, RLS, senile osteoporosis, alcohol dependence presented to the ED 12/02 for ongoing lightheadedness and dizziness associated with blackish stool more than 1 week duration. He reports taking aspirin 325 mg daily since many years. He is being managed for the following: Upper GI bleed Symptomatic anemia Acute blood loss anemia likely secondary to upper GI bleed Patient coming in with lightheadedness or dizziness, Orthostasis at presentation, black stool of more than 1 week duration at presentation. Admitting hemoglobin of 7.6, dropped to 6.3, needed 1 unit PRBC, currently hemoglobin greater than 8. Status post EGD 12/06: Post ulcer deformity found in the duodenal bulb. Stomach and esophagus WNL. No specimens collected. Status post colonoscopy 12/06: Diverticula in the sigmoid colon. Internal hemorrhoids. Colonoscopy in 5 years. No specimens collected GI evaluated, advance diet as tolerated. Patient with clear stool/no black stool, no abdominal pain, no febrile illness. Patient reports feeling better. No varices on scope, will dc rocephin to p.o. PPI Transfuse for symptomatic anemia or hemoglobin less than 7. Pt remains hemodynamically stable. 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 Patient has been made aware, patient aware that he needs to follow-up with urology upon discharge. Follow-up with urology on discharge Other chronic medical conditions: HLD/COPDcontinue with/resume home meds as and when able. DVT prophylaxis: SCDs, re: GI bleed Full code. Admission and Anticipated Discharge Date Admission Date: December 03, 2023 Subjective Patient was seen and examined at bedside. He was sitting up in bed, on room air, NAD, resting comfortably. Patient reports no stool since yesterday, denies abdominal pain. Patient denies any febrile illness or chest pain or shortness of breath or cough or dizziness. Physical Exam Physical Exam: GENERAL: Alert and oriented x3. NAD, on RA. HEENT: No pallor, no icterus. Pupils equal, round and reactive to light. Oral mucosa moist. NECK: No JVD, no neck masses. HEART: S1 and S2 heard. Regular rate and rhythm. No murmur, no gallop. RESPIRATORY SYSTEM: Normal AP diameter. No accessory muscle use. No wheezing, no crackles. ABDOMEN: Soft, bowel sounds present, nontender, no distention. CENTRAL NERVOUS SYSTEM: No facial droop. Speech is clear. Obeys simple commands. Moves extremities. EXTREMITIES: No edema, no erythema seen. Results & Data Results & Data Vital Signs (Past 12 Hours) Vital Signs Temp Pulse Pulse Pulse Resp BP Pulse Ox 12/07/23 13:51 73 18 139/61 94 12/07/23 13:35 76 18 117/60 95 12/07/23 13:20 83 18 108/47 L 92 12/07/23 11:57 37.2 C 68 68 18 147/60 H 95 12/07/23 11:38 36.8 C 71 16 132/71 93 12/07/23 07:51 36.8 C 84 16 129/72 94 12/07/23 07:09 12/07/23 06:49 69 12/07/23 04:07 37.4 C 64 18 114/69 92 O2 Del Method 12/07/23 13:51 Room Air 12/07/23 13:35 Room Air 12/07/23 13:20 Room Air 12/07/23 11:57 Room Air 12/07/23 11:38 Room Air 12/07/23 07:51 Room Air 12/07/23 07:09 Room Air 12/07/23 06:49 12/07/23 04:07 Room Air
[2023-12-07] MEDS: LIDOCAINE 2% 2 ML VIAL/AMP(20MG/ML) INFIL ONE (18:57)
[2023-12-07] MEDS: SODIUM CHLORIDE 0.9% 500 ML IV SCH (18:57)
[2023-12-07] MEDS: PROPOFOL IV EMULSION 10 MG/ML 20 ML VIAL IV ONE (18:57)
[2023-12-07] MEDS: NSS + 20MEQ KCL 20 MEQ/1,000 ML BAG IV ONE (20:29)
[2023-12-07] MEDS: PANTOprazole 40 MG TAB PO SCH (20:33)
[2023-12-07 21:39] LABS: Adenovirus PCR Not Detected (NotDetected); Bordetella parapertussis PCR Not Detected (NotDetected); Bordetella pertussis PCR Not Detected (NotDetected); Chlamydia pneumoniae PCR Not Detected (NotDetected); Coronavirus 229E PCR Not Detected (NotDetected); Coronavirus CoV-2 (COVID19)PCR Not Detected (NotDetected); Coronavirus HKU1 PCR Not Detected (NotDetected); Coronavirus NL63 PCR Not Detected (NotDetected); Coronavirus OC43PCR Not Detected (NotDetected); Human Metapneumovirus PCR Not Detected (NotDetected); Influenza A PCR Not Detected (NotDetected); Influenza B PCR Not Detected (NotDetected); Mycoplasma pneumoniae PCR Not Detected (NotDetected); Parainfluenza Virus 1 PCR Not Detected (NotDetected); Parainfluenza Virus 2 PCR Not Detected (NotDetected); Parainfluenza Virus 3 PCR DETECTED (NotDetected); Parainfluenza Virus 4 PCR Not Detected (NotDetected); Respiratory Syncytial VirusPCR Not Detected (NotDetected); Rhinovirus/Enterovirus PCR Not Detected (NotDetected)
[2023-12-07] MEDS: ACETAMINOPHEN 325 MG TAB PO PRN (23:33)
[2023-12-08 00:25] LABS: Appearance Urine Clear (Clear); Bilirubin Urine Negative (Negative); Blood Urine Negative (Negative); Color Urine Yellow; Glucose Urine UA Negative (Negative); Ketones Urine Trace (Negative); Leukocyte Esterase Urine Negative (Negative); Nitrite Urine Negative (Negative); Protein Urine Negative (Negative); Specific Gravity Urine 1.018 (1.000-1.030); Urobilinogen Urine Negative (Negative); pH Urine 5.5 (4.5-7.5)
[2023-12-08 07:27] LABS: Hematocrit (blood only) 29.2 % (42.0-52.0); Hemoglobin 9.9 g/dl (14.0-18.0); Mean Corpuscular Hgb Conc 33.9 g/dL (32.0-36.0); Mean Corpuscular Volume 91.5 fL (80.0-100.0); Mean Platelet Volume 9.1 fL (9.4-12.4); Platelet Count 255 K/uL (130-400); RDW Coefficient of Variation 14.7 % (11.5-14.5); RDW Standard Deviation 45.5 fL (36.4-46.3); Red Blood Count 3.19 M/uL (4.70-6.10); White Blood Count 7.31 K/ul (4.8-10.8)
[2023-12-08 07:52] LABS: BUN Creatinine Ratio 9.9 (10-20); Calcium 7.8 mg/dl (8.6-10.3); Creatinine Clr Calc Pharmacy 48.4 ml/min; Est GFR (African American) 88.8 ml/min; Est GFR (Non-African American) 76.6 ml/min; Phosphorus 3.4 mg/dl (2.5-4.9); Potassium 3.9 mmol/L (3.5-5.1)
--- NOTE | 2023-12-08 12:20 | Discharge Summary ---
Date of Service December 08, 2023 Admission HPI Per Admitting Provider Patient is a 87-year-old gentleman who is still very active and works at [employer]. Over the last several days has been noticing lightheadedness and dizziness. Last night got to the point where he felt like he almost passed out when he stood up. He is also over the last few days has been noticing black stools. He denies seeing any bright red blood. However this was a significant change in his stool color. Due to the fact that he was feeling so weak and lightheaded he drove to the emergency room today. He reports as he was getting out of his car in the emergency room he almost passed out had to hold onto a pos t that was next to his car. He denies any fever or chills. He denies any true vertigo. He denies any abdominal pain. Denies any changes in his dietary habits. No changes in his bladder habits. He denies any chest pain or palpitations. He admits to some chronic shortness of breath which he attributes to his emphysema but does admit to being more short of breath with exertion over the past few days. He denies any excessive NSAID use. He does take an aspirin daily. He reports that he had a history of diverticular bleed in the past but has never had any issues with heartburn, reflux or known peptic ulcer disease. He quit smoking several years ago. Denies any current alcohol use. Admission Exam Per Admitting Provider Constitutional: Alert, nontoxic in appearance, mildly pale, mild distress HEENT: Mucous membranes moist. Sclera clear Neck: Soft, no adenopathy Lungs: Clear to auscultation, decreased, no wheezes rales or rhonchi, prolonged expiratory phase CV: S1-S2, regular Abdomen: Soft, nontender, nondistended, no guarding, no rigidity Extremities: No significant edema Musculoskeletal: No significant joint tenderness Neuro: No focal deficits Psych: Cooperative, normal mood Principal Diagnosis Upper GI bleed Symptomatic anemia Acute blood loss anemia likely secondary to upper GI bleed Abnormal CT scan of abdomen pelvis with bladder wall thickening and 7 mm nodule Discharge Exam GENERAL: Alert and oriented x3. NAD, on RA. HEENT: No pallor, no icterus. Pupils equal, round and reactive to light. Oral mucosa moist. NECK: No JVD, no neck masses. HEART: S1 and S2 heard. Regular rate and rhythm. No murmur, no gallop. RESPIRATORY SYSTEM: Normal AP diameter. No accessory muscle use. No wheezing, no crackles. ABDOMEN: Soft, bowel sounds present, nontender, no distention. CENTRAL NERVOUS SYSTEM: No facial droop. Speech is clear. Obeys simple commands. Moves extremities. EXTREMITIES: No edema, no erythema seen. Discharge Data Allergies Allergy/AdvReac Type Severity Reaction Status Date / Time No Known Allergies Allergy Mild Unverified 12/03/23 10:27 Consultations 12/03/23 11:02 ED Decision to Admit Stat 12/04/23 07:31 Consult Gastroenterology Routine Procedures Performed Operation Date: 12/07/23 16:30 Actual Procedures p Esophagogastroduodenoscopy - Armani Garcia Case, DO s Colonoscopy - Armani Angulo. Case, DO Ordered Studies 12/03/23 08:07 CT Abd and Pelvis [CT abd pelvis IV con only] Stat 12/03/23 08:39 CT head/brain wo con Stat Hospital Course (1) Upper GI bleed: Plan 87-year-old male with PMH of HLD, COPD - group D, PVD, AAA, frequent PVCs, NSVT, RLS, senile osteoporosis, alcohol dependence presented to the ED 12/02 for ongoing lightheadedness and dizziness associated with blackish stool more than 1 week duration. He reports taking aspirin 325 mg daily since many years. He was managed for the following: Upper GI bleed Symptomatic anemia Acute blood loss anemia likely secondary to upper GI bleed Patient coming in with lightheadedness or dizziness, Orthostasis at presentation, black stool of more than 1 week duration at presentation. Admitting hemoglobin of 7.6, dropped to 6.3, needed 1 unit PRBC, currently hemog lobin greater than 8. Status post EGD 12/06: Post ulcer deformity found in the duodenal bulb. Stomach and esophagus WNL. No specimens collected. Status post colonoscopy 12/06: Diverticula in the sigmoid colon. Internal hemorrhoids. Colonoscopy in 5 years. No specimens collected GI evaluated, advance diet as tolerated. Patient with clear stool/no black stool, no abdominal pain, no febrile illness. Patient reports feeling better. Hemoglobin has been stable, patient on p.o. PPI, patient to continue taking PPI. Patient to follow-up with PCP and GI doctor as an outpatient. Patient has been made aware. Patient to avoid NSAIDs, patient to hold aspirin until further evaluation by PCP as an outpatient. Patient has been made aware. Iron supplement on discharge. 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 Patient has been made aware, patient aware that he needs to follow-up with urology upon discharge. Follow-up with urology on discharge Other chronic medical conditions: HLD/COPDcontinue with/resume home meds as and when able. DVT prophylaxis: SCDs, re: GI bleed Full code. Patient is being discharged to home with following instruction at the point of discharge: Follow-up with your primary care physician within a week time and likely you will need labs CBC/CMP/magnesium/phosphorus. You were admitted for upper GI bleed likely secondary to your long-term high- dose aspirin use. You underwent EGD scope and colonoscopy in the hospital. You have duodenal ulcer. You will be discharged on pantoprazole 40 mg twice a day, you will need to follow-up with GI doctor in 2 to 4 weeks time upon discharge. Coordinate with your PCP office to set up the referral. Avoid NSAIDs. Your aspirin will hold on discharge and likely you will need resuming of decreased dose of aspirin in a week or 2 weeks time. follow-up with your PCP office for further evaluation/management. 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 As discussed at the bedside, you will need urology evaluation upon discharge. Coordinate with your PCP office to set up the referral. You also happened to have parainfluenza upper respiratory infection, monitor for any increase in cough/sputum production, if worsening communicate with your PCP office for further evaluation/management. Take your medications as prescribed. Please make sure that you are able to get your medications today by calling your pharmacy before you leave the hospital so that your treatment continuity is not broken. Home Health Attestation I certify that this patient is under my care and that I, or a physicians library media assistant working with me, had a face to-face encounter that meets the [id number] encounter requirements with this patient. The encounter with the patient was in whole, or in part, for the following medical condition, which is the primary reason for home health care (list medical condition): I certify that, based on my findings, the following services are medically necessary home health services: My clinical findings support the need for the above services because: Further, I certify that my clinical findings support that this patient is homebound (i.e. absences from home require considerable and taxing effort and are for medical reasons or rastafari services or infrequently or of short duration when for other reasons) because: Certification for Home Health Services: Based on the above findings, I certify that this patient is confined to the home and needs intermittent [facility] care, physical therapy and/or speech therapy or continues to need occupational therapy. The patient is under my care, and I have initiated the establishment of the plan of care. This patient will be followed by a physician who will periodically review the plan of care. Total Time Total Time Spent Total Time Spent (In Minutes): 45 Discharge Plan Discharge Items Patient Disposition: Home - Self-Care Reason For Visit: ACUTE BLOOD LOSS ANEMIA Discharge Diagnosis: Follow-up upper GI bleed Symptomatic anemia Acute blood loss anemia likely secondary to upper GI bleed Abnormal CT scan of abdomen pelvis with bladder wall thickening and 7 mm nodule Activity: Resume your previous activity Non-emergency contact: Primary Care Provider Call non-emergency contact if: you have any medication questions, your symptoms worsen and your temperature is above 101 Follow-up/Referrals: Ciro Zayas MD [Primary Care Provider] - ( ) Diet: Heart Healthy Diet Texture: Dental soft (bite-sized) Addtl Attending Provider Instructions: Follow-up with your primary care physician within a week time and likely you will need labs CBC/CMP/magnesium/phosphorus. You were admitted for upper GI bleed likely secondary to your long-term high- dose aspirin use. You underwent EGD scope and colonoscopy in the hospital. You have duodenal ulcer. You will be discharged on pantoprazole 40 mg twice a day, you will need to follow-up with GI doctor in 2 to 4 weeks time upon discharge. Coordinate with your PCP office to set up the referral. Avoid NSAIDs. Your aspirin will hold on discharge and likely you will need resuming of decreased dose of aspirin in a week or 2 weeks time. follow-up with your PCP office for further evaluation/management. 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 As discussed at the bedside, you will need urology evaluation upon discharge. Coordinate with your PCP office to set up the referral. You also happened to have parainfluenza upper respiratory infection, monitor for any increase in cough/sputum production, if worsening communicate with your PCP office for further evaluation/management. Take your medications as prescribed. Please make sure that you are able to get your medications today by calling your pharmacy before you leave the hospital so that your treatment continuity is not broken. Pending Studies at Discharge: No Stand-Alone Forms: [facility], Smoking Cessation Medications and DC Order Prescriptions: New pantoprazole 40 mg Tablet,Delayed Release (Dr/Ec) 40 mg PO BID Qty: 60 0RF ferrous sulfate 325 mg (65 mg iron) tablet 325 mg PO DAILY Qty: 30 0RF Continued multivitamin Tablet 1 tab PO HS atorvastatin 40 mg tablet 40 mg PO QPM cholecalciferol (vitamin D3) [Vitamin D3] 25 mcg (1,000 unit) Tablet 25 mcg PO HS trazodone 50 mg tablet 50 mg PO HS PRN (Reason: Insomnia) sildenafil 100 mg tablet 100 mg PO DAILY MDD 100mg in 24 hours PRN (Reason: Sexual Activity) Rx Instructions: 1 TO 4 HOURS BEFORE INTERCOURSE. NO MORE THAN 1 DOSE IN 24 HOURS. fluoride (sodium) [PreviDent 5000 Booster Plus] 1.1 % paste 1 applic PO DAILY Rx Instructions: brush thoroughly once daily for 2 minutes, do not rince, spit out when done Held aspirin 325 mg Tablet 325 mg PO HS Hold Instructions: Resume on 12/15/23. Hold until further PCP eval. Discharge Orders: Discharge Order (Routine); Ordered 12/08/23 Ordered By: Theresa Arizmendi Admission Data Admit Date/Time: 12/03/23 12:51 Attending Provider: Theresa Arizmendi Admit Provider: Valerio Sanchez Primary Care Provider: Ciro Zayas Other Providers: Valerio Sanchez; Carlos Enrique Morgan; Armani Bower; Manda Chen; Carol Veliz; Marbella Craig; Margret Johansen; Lianet Cooper; Carter Myles; Shane Driver; Moon Mendoza; Lana Costa; Barak Francisco; Mickie Walters; Maria Fernanda Silvestre; Lisseth Zarate; Shelly Phillip; Pete Momin; Marshall Sumner; Omid Colvin; Divya Strickland; Denise Bellamy Jr Other Interventions: Discharge Summary Assessment (RN) Last Done: 12/07/23 13:32
== END 2023-12-08 14:03 | disposition home or self-care (01) | DRG 813 ==
LOC: ED 07:26 → 3E 12:51 → SUATTDRO 12:51 → 3E 16:04 → 2N 12-04 12:45

== ENCOUNTER 2024-04-07 20:43 | Inpatient (IN) ==
[2024-04-07 21:33] LABS: Basophils # (auto) 0.07 K/uL (0.00-0.20); Basophils % (auto) 0.8 %; Eosinophils # (auto) 0.52 K/uL (0.00-0.50); Hematocrit (blood only) 38.7 % (42.0-52.0); Immature Granulocytes # (auto) 0.02 K/uL (0.01-0.20); Immature Granulocytes % (auto) 0.2 %; Lymphocytes # (auto) 2.21 K/uL (1.20-3.40); Lymphocytes % (auto) 25.6 %; Mean Corpuscular Hemoglobin 29.4 pg (25.0-34.0); Mean Corpuscular Hgb Conc 33.6 g/dL (32.0-36.0); Mean Corpuscular Volume 87.6 fL (80.0-100.0); Mean Platelet Volume 9.4 fL (9.4-12.4); Monocytes # (auto) 0.91 K/uL (0.11-0.59); Monocytes % (auto) 10.6 %; Neutrophils # (auto) 4.89 K/uL (1.40-6.50); Neutrophils % (auto) 56.8 %; Platelet Count 213 K/uL (130-400); RDW Coefficient of Variation 13.2 % (11.5-14.5); Red Blood Count 4.42 M/uL (4.70-6.10); White Blood Count 8.62 K/ul (4.8-10.8)
[2024-04-07 21:49] LABS: Potassium 4.2 mmol/L (3.5-5.1)
[2024-04-07 21:50] LABS: Albumin Globulin Ratio 1.7 (0.9-2); Albumin Level 4.4 gm/dl (3.4-5.0); Bilirubin,Total 0.6 mg/dl (0.2-1.0); Creatinine Clr Calc Pharmacy 49.2 ml/min; Globulin 2.6 gm/dl (2.5-4.0)
[2024-04-07 22:04] LABS: Partial Thromboplastin Time 26 Seconds (21-31)
--- NOTE | 2024-04-07 23:01 | Emergency Department Note ---
Impression & Plan Dizziness Admission ED Provider Note HPI: History obtained from patient. The patient is a 88-year-old gentleman with history of upper GI bleed, COPD, hyperlipidemia, anemia, anxiety, presents the emergency department with a chief complaint of generalized weakness and dizziness. Patient states that he began to have the symptoms earlier today. On arrival here to the ED the patient is anxious appearing but he is otherwise in no acute distress. He states he has a "buzzing" sensation in his head. He states at times he feels dizzy with ambulation. Patient denies any chest pain or shortness of breath, denies any abdominal pain, denies any nausea or vomiting. Patient states that he has been trying to titrate off of his Ativan that he used as needed for anxiety and he has been taking less frequent dosages over the past several weeks. ROS: - Per HPI Differential Diagnosis: Urinary tract infection/sepsis, vertigo, stroke, intracranial hemorrhage, anxiety attack, benzodiazepine reaction/withdrawal, amongst other potential pathologies. *Outpatient medications and allergy history reviewed. PE: General: Alert, anxious appearing, no acute distress HEENT: Normocephalic, trachea midline Eyes: Extraocular eye movement is intact, no scleral erythema Pulmonary: Clear to auscultation bilaterally, no wheezing Cardio: Regular rate and rhythm GI: Abdomen is soft to palpation : No suprapubic tenderness MSK: No evidence of trauma or malformation of the extremities, no edema Skin: No evidence of rash Neuro: Alert, no focal deficits, equal bilateral computer console operator strength, no ataxia on [id number] testing bilaterally Psychiatric: Cooperative INDEPENDENT INTERPRETATIONS: quality assurance monitor: (As interpreted by myself): - An order was placed for continuous cardiac monitoring - Patient was noted to be in sinus rhythm with a rate of 70 EKG: (As interpreted by myself): Rate: 61 Rhythm: Normal sinus rhythm Intervals: Within normal limits ST changes: No ST elevation Time: 2053 Interventions provided in ED: -IV fluid bolus Medical Decision Making: IV was established and lab work obtained, patient was placed on monitoring coordinator. Lab work shows no leukocytosis, hemoglobin is stable at 13.0, platelet count is normal, CMP does not show any evidence of any critical findings, troponin is negative, urinalysis shows trace ketones and trace blood, there is no evidence of infection. Viral panel testing was obtained and is negative. CT imaging of the head was also obtained that does not show any evidence of any acute intracranial process. On my reassessment the patient remains very anxious appearing, he states he still has a "buzzing" sensation in his head. On ambulation the patient does not display any obvious ataxia however he states he feels very dizzy when he gets up and walks. Following this conversation it was determined by myself and the patient that he would be best served with admission until his symptoms are resolved and potentially an MRI of the brain could be performed in the morning if he is still symptomatic. Patient expressed an agreement understanding. He was ordered a dose of Ativan after this discussion as he stated he was feeling very worried and anxious. I discussed the patient's presentation with the on- call hospitalist for [facility], Dr. David, and the patient was placed for admission in stable condition. Consultants/Discussions held with other healthcare providers: -Hospitalist, Dr. David Disposition discussion held by myself with: -Patient and patient's brother at the bedside Diagnosis: 1. Vertigo, acute 2. Anxiety reaction, acute Disposition: Admission Sukumar Foss DO Emergency Medicine Past Med/Surg History Problem List (Updated 04/08/24 @ 00:50 by Sukumar Foss DO) Upper GI bleed Acute blood loss anemia Melena (Acute) Anemia (Acute) Dizziness (Acute) HLD (hyperlipidemia) COPD (chronic obstructive pulmonary disease) Medical History No pertinent family history Surgical History No pertinent past surgical history Social History Smoking Status: Never smoker Tobacco Type: Cigarettes Cigarettes Per Day: 20; Second Hand Exposure: Yes; Do You Dip or Chew Tobacco: No; Hx Alcohol Use: No Hx Substance Use: No Preferred Language: Nigerian Communication Ability: Effective Puppet Engineer Required: No Beliefs That Will Affect Care: None marital status: Current Living Situation: Family Current Living Situation Comment: lives with brother Feels Safe at Home: Yes Assistive Devices: None Allergies Allergies Allergy/AdvReac Type Severity Reaction Status Date / Time No Known Allergies Allergy Mild Unverified 12/03/23 10:27 Home Meds Home Medications Medication Instructions Recorded Confirmed atorvastatin 40 mg tablet 40 mg PO QPM 12/27/19 04/08/24 cholecalciferol (vitamin D3) 25 25 mcg PO HS 12/27/19 12/03/23 mcg (1,000 unit) tablet (Vitamin D3) multivitamin 1 tab PO HS 12/27/19 04/08/24 aspirin 325 mg tablet 325 mg PO HS 12/03/23 12/03/23 fluoride (sodium) 1.1 % dental 1 applic PO DAILY 12/03/23 12/03/23 paste (PreviDent 5000 Booster Plus) sildenafil 100 mg tablet 100 mg PO DAILY PRN Sexual Activity 12/03/23 04/08/24 trazodone 50 mg tablet 50 mg PO HS Insomnia 12/03/23 04/08/24 hydroxyzine HCl 10 mg tablet 10 - 15 mg PO DAILY PRN Anxiety 04/08/24 04/08/24 pantoprazole 40 mg tablet,delayed 40 mg PO QAM 04/08/24 04/08/24 release sertraline 100 mg tablet 100 mg PO DAILY 04/08/24 04/08/24 sulfamethoxazole 800 1 tab PO BID 04/08/24 04/08/24 mg-trimethoprim 160 mg tablet Previous Rx's Medication Instructions Recorded ferrous sulfate 325 mg (65 mg 325 mg PO DAILY #30 tabs 12/08/23 iron) tablet lorazepam 0.5 mg tablet (Ativan) 0.5 mg PO Q8H PRN anxiety #20 tabs 12/17/23 Results & Data (ED) Vital Signs Vital Signs - 24 hr 04/07/24 20:46 04/07/24 22:27 04/07/24 22:29 Temperature 36.6 C Temperature Source Temporal Artery Scan Pulse Rate 66 61 Pulse Rate [Left Radial] Pulse Rate from SpO2 Sensor Pulse Rhythm Pulse Rhythm [Left Radial] Pulse Strength [Left Radial] Respiratory Rate 16 Respiratory Effort / Characteristics Non-Labored Respiratory Depth Normal Respiratory Pattern Blood Pressure 151/67 H Blood Pressure [Right Arm] Blood Pressure Mean 95 Blood Pressure Mean [Right Arm] Blood Pressure Position [Right Arm] Pulse Oximetry 91 96 Oxygen Delivery Method Room Air Room Air Oxygen Flow Rate 0 Sepsis Recent Fever Within 48 Hours No Sepsis New/Unexplained Change in Mental Status No Sepsis Action Taken by Nursing No Action Required 04/07/24 22:29 04/07/24 22:29 04/07/24 22:30 Temperature Temperature Source Pulse Rate 60 Pulse Rate [Left Radial] 57 L Pulse Rate from SpO2 Sensor Pulse Rhythm Regular Pulse Rhythm [Left Radial] Regular Pulse Strength [Left Radial] Normal Respiratory Rate 18 18 Respiratory Effort / Characteristics Non-Labored Spontaneous Respiratory Depth Normal Respiratory Pattern Regular Blood Pressure 172/82 H Blood Pressure [Right Arm] 172/82 H Blood Pressure Mean 111 Blood Pressure Mean [Right Arm] 112 Blood Pressure Position [Right Arm] Lying Pulse Oximetry 96 96 Oxygen Delivery Method Room Air Room Air Oxygen Flow Rate Sepsis Recent Fever Within 48 Hours Sepsis New/Unexplained Change in Mental Status Sepsis Action Taken by Nursing 04/07/24 22:30 04/07/24 22:30 04/07/24 23:30 Temperature Temperature Source Pulse Rate 70 Pulse Rate [Left Radial] 64 57 L Pulse Rate from SpO2 Sensor 71 Pulse Rhythm Pulse Rhythm [Left Radial] Regular Regular Pulse Strength [Left Radial] Normal Normal Respiratory Rate 18 17 18 Respiratory Effort / Characteristics Non-Labored Spontaneous Non-Labored Spontaneous Respiratory Depth Normal Normal Respiratory Pattern Regular Regular Blood Pressure 149/76 H Blood Pressure [Right Arm] 149/76 H 177/79 H Blood Pressure Mean 100 Blood Pressure Mean [Right Arm] 100 111 Blood Pressure Position [Right Arm] Pulse Oximetry 96 97 95 Oxygen Delivery Method Room Air Room Air Oxygen Flow Rate Sepsis Recent Fever Within 48 Hours Sepsis New/Unexplained Change in Mental Status Sepsis Action Taken by Nursing 04/07/24 23:30 04/08/24 00:00 Temperature Temperature Source Pulse Rate 56 L 55 L Pulse Rate [Left Radial] Pulse Rate from SpO2 Sensor 53 L 55 L Pulse Rhythm Pulse Rhythm [Left Radial] Pulse Strength [Left Radial] Respiratory Rate 20 16 Respiratory Effort / Characteristics Respiratory Depth Respiratory Pattern Blood Pressure 180/81 H 177/79 H Blood Pressure [Right Arm] Blood Pressure Mean 114 111 Blood Pressure Mean [Right Arm] Blood Pressure Position [Right Arm] Pulse Oximetry 99 96 Oxygen Delivery Method Oxygen Flow Rate Sepsis Recent Fever Within 48 Hours Sepsis New/Unexplained Change in Mental Status Sepsis Action Taken by Nursing Laboratory Data 04/07/24 21:01 04/07/24 21:01 Lab Results 04/07/24 04/07/24 04/07/24 Range/Units 21:01 23:20 23:39 WBC 8.62 (4.8-10.8) K/ul RBC 4.42 L (4.70-6.10) M/uL Hgb 13.0 L (14.0-18.0) g/dl Hct 38.7 L (42.0-52.0) % MCV 87.6 (80.0-100.0) fL MCH 29.4 (25.0-34.0) pg MCHC 33.6 (32.0-36.0) g/dL RDW Std Deviation 42.0 (36.4-46.3) fL RDW Coeff of Ingrid 13.2 (11.5-14.5) % Plt Count 213 (130-400) K/uL MPV 9.4 (9.4-12.4) fL Immature Gran % (Auto) 0.2 % Neut % (Auto) 56.8 % Lymph % (Auto) 25.6 % [place] % (Auto) 10.6 % Eos % (Auto) 6.0 % Baso % (Auto) 0.8 % Neut # (Auto) 4.89 (1.40-6.50) K/uL Lymph # (Auto) 2.21 (1.20-3.40) K/uL [place] # (Auto) 0.91 H (0.11-0.59) K/uL Eos # (Auto) 0.52 H (0.00-0.50) K/uL Baso # (Auto) 0.07 (0.00-0.20) K/uL Immature Gran # (Auto) 0.02 (0.01-0.20) K/uL APTT 26 (21-31) Seconds PTT Ratio 1.0 Sodium 139 (136-145) mmol/L Potassium 4.2 (3.5-5.1) mmol/L Chloride 105 (98-107) mmol/L Carbon Dioxide 27 (21-32) mmol/L Anion Gap 7 (3-11) BUN 12 (6-23) mg/dl Creatinine 0.92 (0.6-1.4) mg/dl Est Cr Clr Drug Dosing 49.2 ml/min Est GFR ( Amer) 87.0 ml/min Est GFR (Non-Af Amer) 75.0 ml/min BUN/Creatinine Ratio 13.0 (10-20) Glucose 94 (70-99(Fasting)) mg/dl Calcium 9.0 (8.6-10.3) mg/dl Total Bilirubin 0.6 (0.2-1.0) mg/dl AST 28 (13-39) U/L ALT 18 (7-52) U/L Alkaline Phosphatase 77 (34-104) U/L Troponin I High Sens 8.0 (0-20) pg/ml Total Protein 7.0 (6.0-8.3) gm/dl Albumin 4.4 (3.4-5.0) gm/dl Globulin 2.6 (2.5-4.0) gm/dl Albumin/Globulin Ratio 1.7 (0.9-2) Urine Color Yellow Urine Appearance Clear (Clear) Urine pH 8.0 H (4.5-7.5) Ur Specific [place] 1.007 (1.000-1.030) Urine Protein Negative (Negative) Urine Glucose (UA) Negative (Negative) Urine Ketones Trace H (Negative) Urine Blood Trace H (Negative) Urine Nitrite Negative (Negative) Urine Bilirubin Negative (Negative) Urine Urobilinogen Negative (Negative) Ur Leukocyte Esterase Negative (Negative) Urine WBC (Auto) 0-5 (0-5) /hpf Urine RBC (Auto) 6-10 H (0-2) /hpf U Hyaline Cast (Auto) 0-2 (0-2) /lpf U Epithel Cells (Auto) 0-2 (0-2) /hpf Urine Bacteria (Auto) None Seen (None Seen) SARS-CoV-2 (PCR) NEGATIVE (Negative) Influenza Type A (PCR) Negative (Neg) Influenza Type B (PCR) Negative (Neg) RSV (RT-PCR) Negative (Neg) Blood Type O Positive Antibody Screen NEGATIVE Administered Medications Discontinued Medications Sodium Chloride (Nss) 500 mls @ 999 mls/hr IV .Q31M ONE Stop: 04/07/24 23:30 Last Infusion: 04/08/24 00:31 Dose: Infused Documented By: Admin: 04/07/24 23:17 Dose: 999 mls/hr Documented By: JAVIER Imaging Data Radiologist's Impression: Head CT 04/07/24 23:00 Exam(s): CT HEAD Without Contrast EXAM: CT Head Without Intravenous Contrast CLINICAL HISTORY: Reason for exam: dizzy. TECHNIQUE: Axial computed tomography images of the head/brain without intravenous contrast. CTDI is 35.22 mGy and DLP is 625.8 mGy-cm. Automated exposure control was utilized for the study. A dose lowering technique was utilized adhering to the principles of ALARA. COMPARISON: CT had: 12/03/2023 FINDINGS: Motion-induced image degradation. Brain: There is no acute intracranial hemorrhage, mass-effect or midline shift. Punctate senescent basal ganglia calcifications. Age-related cerebral atrophy with widening of the extra-axial spaces and ventricular dilatation. There are areas of decreased attenuation within the white matter tracts of the supratentorial brain likely from chronic microvascular disease . Bones/joints: Unremarkable. No acute fracture. Increased thickening/sclerosis of the left maxillary sinus kay. Soft tissues: Unremarkable. Sinuses: Unremarkable as visualized. No acute sinusitis. Leftward mid nasal septal deviation. Mastoid air cells: Unremarkable as visualized. No mastoid effusion. Other findings: Atherosclerotic calcifications of the intracranial arteries. . IMPRESSION: No definite acute intracranial abnormality noted. The need for MRI brain can be determined clinically. Chronic involutional and ischemic changes of the brain. . Electronically signed by: Willy Powell MD, SHARI 04/08/24 00:48 AM Discharge Plan Visit Data Chief Complaint: Dizziness Stated Complaint: [facility] ED Provider: Sukumar Foss Discharge Problem: Dizziness Patient Disposition: Home - Self-Care Condition: Good Discharge Instructions Krames/Other Patient Handouts: ED Dizziness, Uncertain Cause Activity Restrictions/Additional Instructions: Please follow-up with your primary care doctor in 2 to 3 days for reassessment and further management. Please return to the ER if you have any new or worsening symptoms. Forms Stand Alone Forms: My [facility], Important Visit Information Prescriptions Prescriptions: No Action multivitamin Tablet 1 tab PO HS atorvastatin 40 mg tablet 40 mg PO QPM cholecalciferol (vitamin D3) [Vitamin D3] 25 mcg (1,000 unit) Tablet 25 mcg PO HS sertraline 100 mg tablet 100 mg PO DAILY sulfamethoxazole-trimethoprim 800-160 mg tablet 1 tab PO BID pantoprazole 40 mg tablet,delayed release (DR/EC) 40 mg PO QAM hydroxyzine HCl 10 mg tablet 10 - 15 mg PO DAILY PRN (Reason: Anxiety) trazodone 50 mg tablet 50 mg PO HS aspirin 325 mg Tablet 325 mg PO HS Hold Instructions: Resume on 12/15/23. Hold until further PCP eval. sildenafil 100 mg tablet 100 mg PO DAILY MDD 100mg in 24 hours PRN (Reason: Sexual Activity) Rx Instructions: 1 TO 4 HOURS BEFORE INTERCOURSE. NO MORE THAN 1 DOSE IN 24 HOURS. fluoride (sodium) [PreviDent 5000 Booster Plus] 1.1 % paste 1 applic PO DAILY Rx Instructions: brush thoroughly once daily for 2 minutes, do not rince, spit out when done ferrous sulfate 325 mg (65 mg iron) tablet 325 mg PO DAILY Qty: 30 0RF lorazepam [Ativan] 0.5 mg tablet 0.5 mg PO Q8H PRN (Reason: anxiety) Qty: 20 0RF Referrals Referrals: Ciro Zayas MD [Primary Care Provider] -
[2024-04-07] MEDS: SODIUM CHLORIDE 0.9% 500 ML IV ONE (23:17)
[2024-04-07 23:54] LABS: Appearance Urine Clear (Clear); Bacteria Urine Automated None Seen (None Seen); Bilirubin Urine Negative (Negative); Blood Urine Trace (Negative); Cast Urine Automated 0-2 /lpf (0-2); Color Urine Yellow; Epithelial Cell Urine Auto 0-2 /hpf (0-2); Glucose Urine UA Negative (Negative); Ketones Urine Trace (Negative); Leukocyte Esterase Urine Negative (Negative); Nitrite Urine Negative (Negative); Protein Urine Negative (Negative); Specific Gravity Urine 1.007 (1.000-1.030); Urobilinogen Urine Negative (Negative); WBC Urine Automated 0-5 /hpf (0-5)
[2024-04-08 00:28] LABS: Influenza A virus by PCR Negative (Neg); Influenza B virus by PCR Negative (Neg); RSV by PCR Negative (Neg); SARS CoV2 RNA(COVID-19) Ceph NEGATIVE (Negative)
--- NOTE | 2024-04-08 00:48 | CT Scan Report ---
Exam(s): CT HEAD Without Contrast EXAM: CT Head Without Intravenous Contrast CLINICAL HISTORY: Reason for exam: dizzy. TECHNIQUE: Axial computed tomography images of the head/brain without intravenous contrast. CTDI is 35.22 mGy and DLP is 625.8 mGy-cm. Automated exposure control was utilized for the study. A dose lowering technique was utilized adhering to the principles of ALARA. COMPARISON: CT had: 12/03/2023 FINDINGS: Motion-induced image degradation. Brain: There is no acute intracranial hemorrhage, mass-effect or midline shift. Punctate senescent basal ganglia calcifications. Age-related cerebral atrophy with widening of the extra-axial spaces and ventricular dilatation. There are areas of decreased attenuation within the white matter tracts of the supratentorial brain likely from chronic microvascular disease . Bones/joints: Unremarkable. No acute fracture. Increased thickening/sclerosis of the left maxillary sinus kay. Soft tissues: Unremarkable. Sinuses: Unremarkable as visualized. No acute sinusitis. Leftward mid nasal septal deviation. Mastoid air cells: Unremarkable as visualized. No mastoid effusion. Other findings: Atherosclerotic calcifications of the intracranial arteries. . IMPRESSION: No definite acute intracranial abnormality noted. The need for MRI brain can be determined clinically. Chronic involutional and ischemic changes of the brain. . Electronically signed by: Willy Powell MD, DABR 04/08/24 00:48 AM
[2024-04-08] MEDS: LORazepam 2 MG/1 ML VIAL IV STA (01:56)
--- NOTE | 2024-04-08 02:54 | History & Physical Report ---
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 Patient having Dizziness and Weakness. Patient Seems to Been Anxious in the ER. Currently Received Ativan for Anxiety and Somewhat Drowsy. Patient Denies Any Headache. No Blurred Vision. No Runny Nose or Sore Throat. No Cough. No Chest Pain or Shortness of Breath. No Nausea. No Abdominal Pain. Normal Bowel and Bladder Movements As per Patient. No Hematuria As per Patient. Hemodynamics Are Okay. Dizziness CT head okay Recently on 04/06 had cystoscopy and TURBT and is on Bactrim Orthostatics Gentle fluids If persistent will get MRI and neuroconsult Monitor in med/telemetry History of COPD Seems stable Will monitor Hyperlipidemia On statin BPH Finasteride Recent GI bleed EGD showed ulcer in duodenal bulb Hemoglobin stable at 13 Continue Protonix Depression Zoloft High grade bladder cancer s/p TURBT followup with urology. DVT prophylaxis Heparin subcu Disposition Med/telemetry Full code History of Present Illness Chief Complaint: Dizziness Primary Care Provider: Ciro Zayas MD 88-year-old male with past med history significant for GI bleed, COPD, hyperlipidemia, history of dizziness, who was admitted in November 2023 with upper GI bleed and required 1 unit of PRBC, s/pEGD found ulcer in duodenal bulb and during that admission also found to have bladder lesion concerning for urothelial malignancy on CAT scan and outpatient follow-up with urology and found to have high-grade bladder cancer status post TURBT on 04/06 comes today because of dizziness. Patient having Dizziness and Weakness. Patient Seems to Been Anxious in the ER. Currently Received Ativan for Anxiety and Somewhat Drowsy. Patient Denies Any Headache. No Blurred Vision. No Runny Nose or Sore Throat. No Cough. No Chest Pain or Shortness of Breath. No Nausea. No Abdominal Pain. Normal Bowel and Bladder Movements As per Patient. No Hematuria As per Patient. Hemodynamics Are Okay. Past medical history. As mentioned above Past surgical history. Status post EGD. Status post colonoscopy Social history. Former smoker. No alcohol use. No drug use. Family history. Allergies Allergy/AdvReac Type Severity Reaction Status Date / Time No Known Allergies Allergy Mild Unverified 12/03/23 10:27 Home Medications Medication Instructions Recorded Confirmed Type atorvastatin 40 mg tablet 40 mg PO QAM 12/27/19 04/08/24 History cholecalciferol (vitamin D3) 25 25 mcg PO HS 12/27/19 04/08/24 History mcg (1,000 unit) tablet (Vitamin D3) fluoride (sodium) 1.1 % dental 1 applic PO DAILY 12/03/23 04/08/24 History paste (PreviDent 5000 Booster Plus) sildenafil 100 mg tablet 100 mg PO DAILY PRN Sexual Activity 12/03/23 04/08/24 History trazodone 50 mg tablet 50 mg PO HS Insomnia 12/03/23 04/08/24 History lorazepam 0.5 mg tablet (Ativan) 0.5 mg PO Q8H PRN anxiety #20 tabs 12/17/23 04/08/24 Rx finasteride 5 mg tablet 5 mg PO QAM 04/08/24 04/08/24 History pantoprazole 40 mg tablet,delayed 40 mg PO QAM 04/08/24 04/08/24 History release sertraline 100 mg tablet 100 mg PO QAM 04/08/24 04/08/24 History sulfamethoxazole 800 1 tab PO BID 04/08/24 04/08/24 History mg-trimethoprim 160 mg tablet Past Med/Surg History Problem List (Updated 04/08/24 @ 00:50 by Sukumar Foss DO) Upper GI bleed Acute blood loss anemia Melena (Acute) Anemia (Acute) Dizziness (Acute) HLD (hyperlipidemia) COPD (chronic obstructive pulmonary disease) Medical History No pertinent family history Surgical History No pertinent past surgical history Social History Smoking Status: Never smoker Tobacco Type: Cigarettes Cigarettes Per Day: 20; Second Hand Exposure: Yes; Do You Dip or Chew Tobacco: No; Hx Alcohol Use: No Hx Substance Use: No Preferred Language: [place] Islander Communication Ability: Effective Senior Integration Developer Required: No Beliefs That Will Affect Care: None marital status: Current Living Situation: Family Current Living Situation Comment: lives with brother Feels Safe at Home: Yes Assistive Devices: None Review of Systems Review of Systems: All systems reviewed & are unremarkable except as noted in HPI & below Physical Exam Physical Exam: General- Not in acute distress Head- atraumatic Eyes- PERRL. ENT- oropharynx clear Neck- supple, no JVD. Lungs- clear to auscultation no wheezing or crackles Heart- regular rhythm; no murmur, no gallop. Abdomen- normal bowel sounds, soft, nontender, no distension Extremities- no pretibial edema, no erythema seen Neuro- somewhat drowsy but arousable; PERRL, no facial palsy; no dysarthria; motor 4/5 bilaterally; no pronator drift, coordination of movements normal, sensations intact. Results & Data Results & Data Vital Signs (Past 12 Hours) Vital Signs Temp Pulse Pulse Resp BP BP Pulse Ox 04/08/24 02:00 59 L 19 154/59 H 92 04/08/24 02:00 56 L 15 95 04/08/24 01:00 59 L 14 153/91 H 04/08/24 01:00 153/91 H 04/08/24 00:30 54 L 22 145/68 H 95 04/08/24 00:29 155/83 H 04/08/24 00:00 55 L 16 177/79 H 96 04/07/24 23:30 56 L 20 180/81 H 99 04/07/24 23:30 57 L 18 177/79 H 95 04/07/24 22:30 70 17 149/76 H 97 04/07/24 22:30 64 18 149/76 H 96 04/07/24 22:30 60 18 96 04/07/24 22:29 172/82 H 04/07/24 22:29 57 L 18 172/82 H 96 04/07/24 22:29 96 04/07/24 22:27 61 04/07/24 20:46 36.6 C 66 16 151/67 H 91 O2 Del Method O2 Flow Rate 04/08/24 02:00 04/08/24 02:00 04/08/24 01:00 04/08/24 01:00 04/08/24 00:30 04/08/24 00:29 04/08/24 00:00 04/07/24 23:30 04/07/24 23:30 Room Air 04/07/24 22:30 04/07/24 22:30 Room Air 04/07/24 22:30 Room Air 04/07/24 22:29 04/07/24 22:29 Room Air 04/07/24 22:29 Room Air 0 04/07/24 22:27 04/07/24 20:46 Room Air Diagnostic Findings Laboratory Results WBC 8.62 K/ul (4.8-10.8) 04/07/24 21:01 RBC 4.42 M/uL (4.70-6.10) L 04/07/24 21:01 Hgb 13.0 g/dl (14.0-18.0) L 04/07/24 21:01 Hct 38.7 % (42.0-52.0) L 04/07/24 21:01 MCV 87.6 fL (80.0-100.0) 04/07/24 21:01 MCH 29.4 pg (25.0-34.0) 04/07/24 21:01 MCHC 33.6 g/dL (32.0-36.0) 04/07/24 21:01 RDW Std Deviation 42.0 fL (36.4-46.3) 04/07/24 21:01 RDW Coeff of Ingrid 13.2 % (11.5-14.5) 04/07/24 21:01 Plt Count 213 K/uL (130-400) 04/07/24 21:01 MPV 9.4 fL (9.4-12.4) 04/07/24 21:01 Immature Gran % (Auto) 0.2 % 04/07/24 21:01 Neut % (Auto) 56.8 % 04/07/24 21:01 Lymph % (Auto) 25.6 % 04/07/24 21:01 Cherry % (Auto) 10.6 % 04/07/24 21:01 Eos % (Auto) 6.0 % 04/07/24 21:01 Baso % (Auto) 0.8 % 04/07/24 21:01 Neut # (Auto) 4.89 K/uL (1.40-6.50) 04/07/24 21:01 Lymph # (Auto) 2.21 K/uL (1.20-3.40) 04/07/24 21:01 Cherry # (Auto) 0.91 K/uL (0.11-0.59) H 04/07/24 21:01 Eos # (Auto) 0.52 K/uL (0.00-0.50) H 04/07/24 21:01 Baso # (Auto) 0.07 K/uL (0.00-0.20) 04/07/24 21: Immature Gran # (Auto) 0.02 K/uL (0.01-0.20) 04/07/24 21:01 APTT 26 Seconds (21-31) 04/07/24 21: PTT Ratio 1.0 04/07/24 21:01 Sodium 139 mmol/L (136-145) 04/07/24 21:01 Potassium 4.2 mmol/L (3.5-5.1) 04/07/24 21: Chloride 105 mmol/L (98-107) 04/07/24 21:01 Carbon Dioxide 27 mmol/L (21-32) 04/07/24 21:01 Anion Gap 7 (3-11) 04/07/24 21:01 BUN 12 mg/dl (6-23) 04/07/24 21:01 Creatinine 0.92 mg/dl (0.6-1.4) 04/07/24 21: Est Cr Clr Drug Dosing 49.2 ml/min 04/07/24 21:01 Est GFR ( Amer) 87.0 ml/min 04/07/24 21:01 Est GFR (Non-Af Amer) 75.0 ml/min 04/07/24 21:01 BUN/Creatinine Ratio 13.0 (10-20) 04/07/24 21: Glucose 94 mg/dl (70-99(Fasting)) 04/07/24 21:01 Calcium 9.0 mg/dl (8.6-10.3) 04/07/24 21: Total Bilirubin 0.6 mg/dl (0.2-1.0) 04/07/24 21:01 AST 28 U/L (13-39) 04/07/24 21:01 ALT 18 U/L (7-52) 04/07/24 21:01 Alkaline Phosphatase 77 U/L (34-104) 04/07/24 21:01 Troponin I High Sens 8.0 pg/ml (0-20) 04/07/24 21:01 Total Protein 7.0 gm/dl (6.0-8.3) 04/07/24 21:01 Albumin 4.4 gm/dl (3.4-5.0) 04/07/24 21:01 Globulin 2.6 gm/dl (2.5-4.0) 04/07/24 21:01 Albumin/Globulin Ratio 1.7 (0.9-2) 04/07/24 21:01 Urine Color Yellow 04/07/24 23:39 Urine Appearance Clear (Clear) 04/07/24 23:39 Urine pH 8.0 (4.5-7.5) H 04/07/24 23:39 Ur Specific [place] 1.007 (1.000-1.030) 04/07/24 23:39 Urine Protein Negative (Negative) 04/07/24 23:39 Urine Glucose (UA) Negative (Negative) 04/07/24 23:39 Urine Ketones Trace (Negative) H 04/07/24 23:39 Urine Blood Trace (Negative) H 04/07/24 23:39 Urine Nitrite Negative (Negative) 04/07/24 23:39 Urine Bilirubin Negative (Negative) 04/07/24 23:39 Urine Urobilinogen Negative (Negative) 04/07/24 23:39 Ur Leukocyte Esterase Negative (Negative) 04/07/24 23:39 Urine WBC (Auto) 0-5 /hpf (0-5) 04/07/24 23:39 Urine RBC (Auto) 6-10 /hpf (0-2) H 04/07/24 23:39 U Hyaline Cast (Auto) 0-2 /lpf (0-2) 04/07/24 23:39 U Epithel Cells (Auto) 0-2 /hpf (0-2) 04/07/24 23:39 Urine Bacteria (Auto) None Seen (None Seen) 04/07/24 23:39 SARS-CoV-2 (PCR) NEGATIVE (Negative) 04/07/24 23:20 Influenza Type A (PCR) Negative (Neg) 04/07/24 23:20 Influenza Type B (PCR) Negative (Neg) 04/07/24 23:20 RSV (RT-PCR) Negative (Neg) 04/07/24 23:20 Blood Type O Positive 04/07/24 21:01 Antibody Screen NEGATIVE 04/07/24 21:[address] 04/07/24 23:00 Exam(s): CT HEAD Without Contrast EXAM: CT Head Without Intravenous Contrast CLINICAL HISTORY: Reason for exam: dizzy. TECHNIQUE: Axial computed tomography images of the head/brain without intravenous contrast. CTDI is 35.22 mGy and DLP is 625.8 mGy-cm. Automated exposure control was utilized for the study. A dose lowering technique was utilized adhering to the principles of ALARA. COMPARISON: CT had: 12/03/2023 FINDINGS: Motion-induced image degradation. Brain: There is no acute intracranial hemorrhage, mass-effect or midline shift. Punctate senescent basal ganglia calcifications. Age-related cerebral atrophy with widening of the extra-axial spaces and ventricular dilatation. There are areas of decreased attenuation within the white matter tracts of the supratentorial brain likely from chronic microvascular disease . Bones/joints: Unremarkable. No acute fracture. Increased thickening/sclerosis of the left maxillary sinus kay. Soft tissues: Unremarkable. Sinuses: Unremarkable as visualized. No acute sinusitis. Leftward mid nasal septal deviation. Mastoid air cells: Unremarkable as visualized. No mastoid effusion. Other findings: Atherosclerotic calcifications of the intracranial arteries. . IMPRESSION: No definite acute intracranial abnormality noted. The need for MRI brain can be determined clinically. Chronic involutional and ischemic changes of the brain. . Electronically signed by: Willy Powell MD, DABR 04/08/24 00:48 AM ECG Additional Comments: ECG. Normal sinus rhythm rate of 61. Nonspecific ST abnormalities. Code Status & VTE Plan VTE Prophylaxis Plan VTE Prophylaxis will be ordered: Yes
[2024-04-08] MEDS ORDERED: POLYETHYLENE (MIRALAX) 17 GM PACK PO PRN (04:30)
[2024-04-08] MEDS ORDERED: LORazepam 0.5 MG TAB PO PRN (04:30)
[2024-04-08] MEDS ORDERED: ACETAMINOPHEN 325 MG TAB PO PRN (04:30)
[2024-04-08] MEDS ORDERED: NITROGLYCERIN SL 0.4 MG/TAB TAB SL PRN (04:30)
[2024-04-08] MEDS: SODIUM CHLORIDE 0.9% 1,000 ML IV SCH (06:04)
--- OUTSIDE RECORDS SUMMARY | 2024-04-08 06:36 | External Medical Summary | Summary of Care ---
Author Name Unknown Organization [facility] Address [address] [place] [address] Phone [phone] Care Team Providers Care Ship Joiner Name Role Phone Ciro Zayas MD Primary Care Provider + Reason for Visit * Auth/Cert Specialty Diagnoses / Procedures Referred By Miguel t Referred To Contact Diagnoses Bladder mass Mass of bladder Bladder mass [N32.89] Mass of bladder [N32.89] Procedures CYSTOSCOPY/TREAT MED BLADDER TUMOR BLADDER INSTILLATION, ANTICARCINOGENIC CYSTOURETHROSCOPY WITH FULGURATION MEDIUM BLADDER TUMOR 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 Francisco Beltrán MD [address] [address] [facility] [address] [place] [phone] Referral ID Status Reason Start Date Expiration Date Visits Re quested Visits Authorized [id number] Encounter Details Date Type Department Care Team (Latest Contact Info) Description 04/06/2024 6:56 AM EDT - 04/06/2024 11:04 AM EDT Hospital Encounter OR [facility], Operating Room, [facility] - 4th Floor [address] [place] [phone] Francisco Beltrán MD [address] [id number] Discharge Disposition: Home - Self Care Allergies No known active allergiesdocumented as of this encounter (statuses as of 04/06/2024) Medications Medication Sig Dispensed Refills Start Date End Date Status MULTI VITAMIN MENS PO TABS one tablet by mouth daily Active Cholecalciferol (VITAMIN D) 1000 UNIT Capsule 1 cap daily Active Nitroglycerin 0.4 MG Sublingual Tablet Sublingual (Nitrostat) Place under the tongue 1 Tablet every 5 minutes as needed for Pain, Chest. up to 3 doses in 15 minutes 25 Tablet 11 09/16/2021 Active Albuterol Sulfate HFA 108 (90 Base) MCG/ACT Inhalation Aerosol SolutionIndications:C OPD, mild (HCC) Inhale by mouth 2 Puffs every 4 hours as needed for Wheezing. 18 g 1 03/06/2022 Active Diclofenac Sodium 1 % External Gel (Voltaren)Indications :Bilateral hand pain Apply 2 gm to the hands bilaterally every 6 hours as needed for pain 10/15/2023 Active Atorvastatin Calcium 40 MG Oral Tablet (Lipitor)Indications: Coronary atherosclerosis due to lipid rich plaque TAKE 1 TABLET BY MOUTH EVERY DAY 90 Tablet 3 10/23/2023 Active Additional Information Patient taking differently: QHS, Reported on 01/25/2024 Cyclobenzaprine HCl 5 MG Oral Tablet (Flexeril) TAKE 1 TABLET BY MOUTH EVERY 8 HOURS NEEDED FOR MUSCLE SPASMS 11/20/2023 Active Ferrous Sulfate 325 (65 Fe) MG Oral Tablet (Feosol)Indications:D ecreased hemoglobin Take 1 Tablet by mouth every other day. 12/23/2023 Active busPIRone HCl 10 MG Oral Tablet (Buspar)Indications:G AD (generalized anxiety disorder) TAKE 1 TABLET BY MOUTH EVERY MORNING AND TAKE ONE TABLET BY MOUTH AT BEDTIME 60 Tablet 12/31/2023 Active Additional Information Patient not taking.Reported on 01/05/2024 Finasteride 5 MG Oral Tablet (Proscar) Take 1 Tablet by mouth in the morning. 90 Tablet 3 01/11/2024 Active LORazepam 0.5 MG Oral Tablet (Ativan)Indications:G AD (generalized anxiety disorder) Take 1 Tablet by mouth every 8 hours as needed for Anxiety. 21 Tablet 01/14/2024 Active Sertraline HCl 50 MG Oral Tablet (Zoloft)Indications:G AD (generalized anxiety disorder) Take 1 Tablet by mouth in the morning. 30 Tablet 1 01/14/2024 Active Additional Information Patient not taking.Reported on 04/04/2024 hydrOXYzine HCl 10 MG Oral Tablet (Atarax) TAKE 1/2 TO 1 TABLET TWO TIMES DAILY NEEDED FOR ANXIETY 01/20/2024 Active traZODone HCl 50 MG Oral Tablet (Desyrel) Take 1 Tablet by mouth at bedtime. 90 Tablet 3 02/11/2024 Active oxyCODONE-Acetaminoph en 5-325 MG Oral Tablet (Percocet) Take 1 Tablet by mouth every 8 hours as needed for Pain, Breakthrough for up to 10 doses. 10 Tablet 02/15/2024 Active Additional Information Patient not taking.Reported on 04/04/2024 Pantoprazole Sodium 40 MG Oral Tablet Delayed Release (Protonix) Take 1 Tablet by mouth in the morning. 60 Tablet 02/17/2024 Active Sertraline HCl 100 MG Oral Tablet (Zoloft) Take 1 Tablet by mouth in the morning. 03/10/2024 Active Vitamin K 100 MCG Oral Tablet Take by mouth every morning. Active Turmeric Powder Use as directed every morning. Tumeric with coretta supplement Active Sulfamethoxazole-Trim ethoprim 800-160 MG Oral Tablet (Bactrim DS) Take 1 Tablet by mouth in the morning and 1 Tablet before bedtime. 6 Tablet 04/06/2024 Active Phenazopyridine HCl 200 MG Oral Tablet (Pyridium) Take 1 Tablet by mouth 3 times a day as needed for bladder pain. 10 Tablet 04/06/2024 Active documented as of this encounter (statuses as of 04/06/2024) Active Problems Problem Noted Date Diagnosed Date Mass of bladder 03/03/[address] scan, bladder 01/11/2024 Bladder mass 01/11/2024 Aortic ectasia, abdominal 10/21/2023 Frequent PVCs 06/23/2023 NSVT (nonsustained ventricular tachycardia) 11/2022 COPD, group D, by GOLD 2017 classification 11/24 Overview: Per COPD GOLD Classification AAA (abdominal aortic aneurysm) 09/24/2022 PVD (peripheral vascular disease) 09/23/2022 History of pulmonary embolism 02/26/2022 History of cigarette smoking 02/26/2022 History of 2019 novel coronavirus disease (COVID -19) 02/26/2022 Senile osteoporosis 12/24/2018 Atherosclerosis of [place] co ronary artery of [place] heart without angina pectoris 05/19/2018 History of gout 03/10/2018 Varicose vein of leg 09/08/2017 History of nonmelanoma skin cancer 06/02/2017 Overview: BCC L midback 03/10 BCC right post-auricular scalp 06/06 BCC right pre-auricular ear 08/29 BCC right chest 08/29 BCC under the right ala 02/26 History of alcohol dependence 03/05/2017 Dyslipidemia, goal LDL below 70 10/02/2011 Restless leg syndrome 09/24/2010 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 Bradycardia 12/01/2008 Beta-blockers contraindicated YURY inhibitor intolerance Overview: low blood pressure documented as of this encounter (statuses as of 04/06/2024) Resolved Problems Problem Noted Date Diagnosed Date Resolved Date COPD, group C, by GOLD 2017 classification 01/27/2022 11/26/2022 Overview: Per COPD GOLD Classification Pulmonary embolus 07/26/2021 02/26/2022 Moderate protein-calorie malnutrition 07/26/2021 10/15/2023 COPD, group A, by GOLD 2017 classification 02/27/2020 01/30/2022 Overview: Per COPD GOLD Classification Senile osteoporosis 12/31/2016 08/11/19 20 History of basal cell carcinoma 03/23/2015 06/02/2017 Overview: right pre-auricular ear /10 Gout 05/31/2013 03/10/2018 Alcoholism in remission 11/08/201202/17 COPD, mild 04/05/2012 03/01/2020 Overview: Per COPD GOLD Classification Dyslipidemia, goal LDL below 100 05/27/2011 10/02/2011 Tobacco use disorder 09/24/2010 022 ADVANCE DIRECTIVE INFORMATION 05/20/2010 03/10/2018 Overview: No, Advance Directive brochure offered , patient declined. Diverticulitis of colon 07/10/2009/02/2011 Overview: Have diverticular bleed in 2008 Dyslipidemia, goal LDL below 70 07/03/2009 05/27/2011 Overview: Per Lipid Taxonomy. COPD, severity to be determined 01/10/2009 04/05/2012 Skin sensation disturbance 12/01/2008 0 03/05/2017 Mixed dyslipidemia 10/06/2008 9 Overview: Per Lipid Taxonomy. Coronary atherosclerosis 10/06/2008 Overview: No obstructive lesions in 2008 - had coronary cath documented as of this encounter (statuses as of 04/06/2024) Immunizations Name Administration Dates Next Due COVID-19 mRNA, LNP-s, No Pre serve, 2-Dose Series ([facility]) 10/23/2020,10/02/2020 Pneumococcal Conjugate Vacc, 13 Valent (Prevnar) 08/30/2014 Pneumococcal Polysaccharide PPV23 (Pneumovax) TD - Tetanus/Diptheria (ADULT) 12/26/2009 TD, Preservative Free 12/26/2009 documented as of this encounter Social History Tobacco Use Types Packs/Day Years Used Date Smoking Tobacco: Former Cigarettes 1 50 1 09/12/1970 - 07/12/2021 Smokeless Tobacco: Never Alcohol Use Standard Drinks/Week Comments Not Currently 0 (1 standard drink = 0.6 oz pur e alcohol) no drinks since 1978 PHQ-2 Answer Date Recorded PHQ Adult Total Score 2 01/28/2024 Hunger Vital Sign Answer Date Recorded Within the past 12 months, y ou worried that your food would run out before you got the money to buy more. Never true 12/17/19 24 Within the past 12 months, t he food you bought just didn't last and you didn't have money to get more. Never true 12/17/2023 Childcare Answer Date Recorded Do you feel overwhelmed with taking care of a child, family member or friend? No 12/17/2023 Does your family need help f inding childcare? (Household - for ages 0-17 years) Not on file 12/17/2023 Clothing Answer Date Recorded Have you been unable to get clothing when it was really needed? No 12/17/2023 Is your family able to get c lothes or diapers when needed? (Household - for ages 0-17 years) Not on file 12/17/2023 Personal Safety Answer Date Recorded Do you feel unsafe or have concerns for your saf ety? No 12/17/2023 Do you have concerns for you r family's safety? (Household - for ages 0-17 years) Not on file 12/17/2023 Utilities Answer Date Recorded Do you have trouble paying y our heating, water, or electric bill? No 12/17/2023 Is your family able to pay t he heat, water, or electric bill? (Household - for ages 0-17 years) Not on file 12/17/2023 Does your family have access to good internet? (Household - for ages 0-17 years) Not on file 12/17/2023 Employment Status Answer Date Recorded Are you unemployed or without regular income? No 12/17/2023 Does the household have a [facility] source [facility] income? (Household - for ages 0-17 years) Not on file 12/17/2023 Social Connections Answer Date Recorded How often do you feel lonely or isolated from th ose around you? Never 12/17/2023 Financial Resource Strain Answer Date R ecorded Do you have any trouble payi ng for your medications, or do you think you might in the future? No 12/17/2023 Does your family have troubl e paying for medicine? (Household - for ages 0-17 years) Not on file 12/17/2023 Transportation Needs Answer Date Record ed READ ONLY Do you have troubl e getting a ride to medical visits or work? Never True 12/17/2023 Does your family have a hard time getting a ride to doctors visits? (Household - for ages 0-17 years) Not on file 12/17/2023 Has lack of transportation k ept you from medical appointments, meetings, work, or from getting things needed for daily living? Check all that apply. (Adult - for ages 18 years and over) Not on file 12/17/2023 Do you (or your family) have trouble finding or paying for a ride (transportation)? (Household - for ages 0-17 years) Not on file 12/17/2023 Housing Stability Answer Date Recorded Do you currently live in a s helter or have no steady place to sleep at night? No 12/17/2023 READ ONLY Do you think you a re at risk of becoming homeless? No 12/17/2023 Does your family worry about paying for your home or becoming homeless? (Household - for ages 0-17 years) Not on file 0 12/17/2023 Are you homeless or worried that you might be in the future? (Adult - for ages 18 years and over) Not on file Are you (or your family) eliceo eless or worried that you might be in the future? (Household - for ages 0-17 years) Not on file Food Insecurity Answer Date Recorded Do you need food for this week? No 12/17/2023 Are you able to get enough f ood for your family? (Household - for ages 0-17 years) Not on file 12/17/2023 Does your family need food t his week? (Household - for ages 0-17 years) Not on file 12/17/2023 Do you always have enough fo od for your family? (Household - for ages 0-17 years) Not on file 12/17/2023 Sex and Gender Information Value Date Recorded Sex Assigned at Male 08/11/2019 11:59 AM EST Gender Identity Male 08/11/2019 11:59 AM EST Sexual Orientation Straight 08/11/2019 11 :59 AM EST Job Start Date Occupation Industry Not on file Not on file Not on file documented as of this encounter Last Filed Vital Signs Vital Sign Reading Time Taken Comments Blood Pressure 147/74 04/06/2024 10:53 AM EDT Pulse 62 04/06/2024 10:53 AM EDT Temperature 35.5 C (95.9 F) 04/06/2024 10:53 AM E DT Respiratory Rate 18 04/06/2024 10:53 AM EDT Oxygen Saturation 95% 04/06/2024 10:53 AM EDT Inhaled Oxygen Concentration - - Weight 59 kg (130 lb 1.1 oz) 04/06/2024 7:07 AM EDT Height 172.7 cm (5' 7.99") 04/06/2024 7:07 AM ED T Body Mass Index 19.78 04/06/2024 7:07 AM EDT documented in this encounter Discharge Instructions * Discharge Instr - AVS* Francisco Beltrán MD - 04/06/2024 8:44 AM EDT Expected symptoms after bladder biopsy include bladder pain/spasms, blood in the urine, burning with urination and other bothersome voiding symptoms. The symptoms may worsen with physical activity. Please contact our office with any fevers, chills, nausea, vomiting or other worrisome changes. Please follow up in the office as scheduled for review of pathology. Complete any prescribed antibiotics as ordered. It is OK to take a shower or bath. No driving within 24 hours of anesthesia or while using narcotic pain medication. documented in this encounter Progress Notes * Francisco Beltrán MD - 04/06/2024 8:51 AM EDT [place] [id number] OUTPATIENT SURGERY DISCHARGE SUMMARY NOTE Name: Juan Vazquez Location: [facility] Date: 04/06/2024 Time: 8:51 AM Surgery Date: 04/06/2024 Procedure: CYSTOURETHROSCOPY WITH FULGURATION MEDIUM BLADDER TUMOR N/A Surgeon: Francisco Beltrán MD Discharge Diagnosis: History of high-grade bladder cancer status post second- look cold cup biopsy, TUR biopsy, fulguration. After examination of this patient, I have determined he is ready for discharge to home when the patient meets criteria. Discharge instructions were given to the patient. documented in this encounter H&P Notes * Francisco Beltrán MD - 04/06/2024 7:20 AM EDT GENERAL HISTORY & PHYSICAL EXAMINATION - Urology Service [address] [address] Name: Juan Vazquez Location: [facility] Date: 04/06/2024 Time: 7:20 AM Date of H&P April 06, 2024. [id number] PCP: [place] [address] [phone] Juan Vazquez is an inquisitive 88 year old male, who presents for second-look resection for history of pT1 high-grade bladder cancer. Patient's past notes reviewed. Patient is quite concerned overthe possibility of a postoperative catheter being present. He denies significant changes in his health since his visit a month ago. Bladder cancer: Presented to Urology December 2023. 65 pack years cigarette history. pT1 high grade bladder cancer s/p TURBT Jan 2024, muscle not seen. BPH: Patient is being seen for BPH today. He has had the following symptoms: slow stream and nocturia x 2 . Severity is moderate. He has tried finasteride. He has previously had office cystoscopy done. Problem has been present for years. Problem is about the same. @actMED@ Review of patient's allergies indicates: No Known Allergies Social History: Social History Tobacco Use Smoking status: Former Current packs/day: 0.00 Average packs/day: 1 pack/day for 50.0 years (50.0 ttl pk-yrs) Types: Cigarettes Start date: 07/12/1971 Quit date: 07/12/2021 Years since quittin.7 Smokeless tobacco: Never Substance Use Topics Alcohol use: Not Currently Comment: no drinks since 1978 Vaping/E-Cigarette Use Vaping/E-Cigarette Use Never User Vaping/E-Cigarette Substances Vaping/E-Cigarette Devices Family History Problem Relation Name Age of Onset Cancer Mother , lung No Past Hx Father alcoholic Heart Disorder Father ME at 61 No Past Hx Brother Past Surgical History: Procedure Laterality Date COLONOSCOPY, DIAGNOSTIC (RECTUM) 06/19/2021 normal bx / COLONOSCOPY FLEXIBLE PROXIMAL DIAGNOSTIC performed by Shelly Phillip MD at [facility] COLORECTAL CANCER SCREEN; NOT AT RISK 04/17/09 done diverticulosis,a single non-bleeding colonic angioectasia CYSTOSCOPY/TREAT MED BLADDER TUMOR N/A 02/15/2024 CYSTOURETHROSCOPY WITH FULGURATION MEDIUM BLADDER TUMOR performed by Mayur Quintero, Sabas Doherty MD at OR [facility] DENTAL SURGERY PROCEDURE NEC 07/20/2013 EGD, FLEXIBLE, DIAGNOSTIC 06/19/2021 duodenal diverticulum,gastric heterotopia, reflux esophagitis / ESOPHAGOGASTRODUODENOSCOPY (EGD), FLEXIBLE, TRANSORAL, DIAGNOSTIC performed by Shelly Phillip MD at ENDOSCOPY [facility] INFORMATION 11/2023 EGD & Colonoscopy. INFORMATION Heart cath. 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 Anxiety and depression Beta-blockers contraindicated Bradycardia 12/01/2008 COPD (chronic obstructive pulmonary disease) ([facility]) COPD, mild ([facility]) 04/05/2012 Coronary atherosclerosis 10/06/2008 Dyslipidemia, goal LDL below 70 10/02/2011 Gout 05/31/2013 History of 2019 novel coronavirus disease (COVID-19) 02/26/2022 History of alcohol dependence ([facility]) 03/05/2017 History of cigarette smoking 02/26/2022 History of pulmonary embolism 02/26/2022 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 PAD (peripheral artery disease) ([facility]) 09/23/2022 Personal history of alcoholism ([facility]) sober since 10/1978 Patient Active Problem List Diagnosis Bradycardia Impotence of organic origin Restless leg syndrome Beta-blockers contraindicated YURY inhibitor intolerance Dyslipidemia, goal LDL below 70 History of alcohol dependence ([facility]) History of nonmelanoma skin cancer Varicose vein of leg History of gout Atherosclerosis of [place] coronary artery of [place] heart without angina pectoris Senile osteoporosis History of pulmonary embolism History of cigarette smoking History of 2019 novel coronavirus disease (COVID-19) PVD (peripheral vascular disease) ([facility]) AAA (abdominal aortic aneurysm) ([facility]) COPD, group D, by GOLD 2017 classification ([facility]) Frequent PVCs NSVT (nonsustained ventricular tachycardia) ([facility]) Aortic ectasia, abdominal ([facility]) Abnormal CT scan, bladder Bladder mass Mass of bladder Constitutional: (-) fever and (-) chills ENT: (-) stridor Male : See HPI Neurology: (-) negative: no focal neurologic defect Psychiatry: (+) anxiousness Physical Exam Constitutional: Appearance: Normal appearance. HENT: Head: Normocephalic and atraumatic. Right Ear: External ear normal. Left Ear: External ear normal. Nose: Nose normal. Mouth/Throat: Mouth: Mucous membranes are moist. Cardiovascular: Pulses: Normal pulses. Heart sounds: Normal heart sounds. Pulmonary: Effort: Pulmonary effort is normal. No respiratory distress. Breath sounds: Normal breath sounds. Abdominal: Palpations: Abdomen is soft. Tenderness: There is no abdominal tenderness. Musculoskeletal: Cervical back: Normal range of motion and neck supple. Lymphadenopathy: Cervical: No cervical adenopathy. Skin: Coloration: Skin is not cyanotic or pale. Neurological: Mental Status: He is alert and oriented to person, place, and time. Psychiatric: Attention and Perception: Attention normal. Mood and Affect: Mood and affect normal. Impression/Plan: 88-year-old male with a history of pT1 high-grade bladder cancer. Findings reviewed with the patient. Will return to the OR for cystoscopy, bladder biopsy, transurethral resection of bladder tumor with possible intravesical instillation of mitomycin-C. IV Ancef on-call, SCDs for DVT prophylaxis. Consent in chart, questions answered. Above content is personally reviewed. Patient vocalizes good understanding of the treatment plan. Francisco Beltrán MD 7:20 AM 04/06/2024 documented in this encounter Nursing Notes * Opal Sin RN - 04/06/2024 10:57 AM EDT [address] [phone] SameDay Surgery Discharge Note Name: Juan Vazquez Date: 04/06/2024 Time: 10:57 AM Discharge Disposition: Home Responsible adult as escort home: daugh\\ter Transport Mode: Ambulatory Accompanied by: Kevin Sin RN To: Car Belongings with patient: Yes Patient meets criteria to be transferred or discharged. * Rocío Hughes RN - 04/04/2024 3:31 PM EDT Patient identified by: name/birthdate Person taught: Patient Optime case procedure confirmed with surgical consent Laterality confirmed as N/a Surgery date at time of Pre-Surgery Center Encounter: 04/06/24 What procedure is patient having? TURBT with possible mitomycin In an emergency, is patient willing to accept blood products or blood transfusion? unknown Do you need to place a blood bank order? No Anesthesia consent pool notified? N/A Anesthesia evaluation requested per case documentation? No Preop Evaluation Requested? No PATIENT EDUCATION SCREENING Person taught: Patient Motivation Level: Asks Questions and Eager to Learn Language Barrier: No Physical Barrier: N/A METHOD: Lecture-telephone interview Patient Preferred Learning Methods: Lecture-Telephone interview Health History interview completed, questions answered, and the following patient instructions provided via telephone interview: Preoperative bathing instructions General preoperative instructions Medication instructions NPO instructions - If your normal morning routine take sertraline, Protonix, and if needed lorazepam and rescue inhaler the morning of surgery. OUTCOME: State / Describe / Explain, Needs Reinforcement, and Verbalizes understanding of education documented in this encounter OR Notes * OR Surgeon - Francisco Beltrán MD - 04/06/2024 8:52 AM EDT [facility]-[address] [phone] OPERATIVE REPORT Name: Juan Vazquez Date: 04/06/2024 Time: 8:52 AM Location: [facility] Service: Urology Date of Operation: 04/06/2024 Pre-op Diagnosis: History of pT1 high-grade bladder cancer status post TURBT Post-op Diagnosis: Same, no visible residual tumor Surgeon: Francisco Beltrán MD Assistants: None Anesthesia: General LMA anesthesia Operation: Cystoscopy, cold cup and TUR biopsy, fulguration. Findings: No visible tumor or mucosal abnormalities, previous scar biopsied and resected. Case Acuity: Elective Wound Class: Clean Specimen and Disposition: Right-sided cold cup bladder biopsy, right-sided TUR bladder biopsy. Estimated Blood Loss: Less than 5 mL Fluids: Less than 1000 mL Urine Output: Not measured Drains/Implants: 18 [place] Grimm catheter with 10 mL of sterile water in the balloon Complications: none Postoperative Condition: stable Indications and History: Patient is a pleasant 88-year-old male with a history of bladder cancer status post TURBT a couple of months ago found to have pT1 high-grade bladder cancer. Following NCCN guidelines re-resection today is planned to rule out occult muscle invasion. Informed consent was present in the chart, IV Ancef on-call for antibiotic coverage. SCDs used for DVT prophylaxis, IV Tylenol for additional perioperative analgesia. No new questions, wishes to proceed. Please see H&P and outpatient notes for further details. Description of Operation: Patient was properly identified and brought into the operative suite after identification of appropriate consent in the chart. General anesthesia with laryngeal mask was initiated and patient was prepped and draped in standard fashion for this procedure. full time babysitter-out procedure was followed. Twenty-two Chilean rigid resectoscope was introduced into the bladder under direct visualization demonstrating a normal urethra, moderate lateral lobe hypertrophy of the prostate with old inflammation and parenchymal calcifications. Elevated bladder neck was visualized and bladder was entered. A distended bladder with grade 2 trabeculation and significant postvoid residual was noted. Ureteral orifices were appreciated to be in the normal anatomic location and effluxing clear yellow urine. Careful cystoscopy was performed with circumferential inspection of the bladder. An early Hutch diverticulum on the right-hand side was noted with no evidence of abnormal mucosa. On the anterior right wall old scar from previous TUR was present and inspected. This demonstrated appropriate healing mucosa without clear papillary changes or worrisome lesions for tumor. Cold cup biopsy specimens were taken of borderline areas of mucosa and sent as right cold cup bladder biopsies. After this was complete the cystoscope was removed and a 26 Chilean rigid resectoscope was introduced using a visual obturator. Bipolar loop was used to take appropriate samples at the old scar of deeper tissue which were labeled as right-sided TUR biopsy and sent for pathology. No evidence of bladder perforation was appreciated. Bipolar button was used to obtain excellent hemostasis and fulgurate surrounding areas of borderline mucosa. After this was complete the bladder was reinspected and noted to be free of any other injuries, tumors or abnormal areas of mucosa. Bladder was partially distended resectoscope was removed. Eighteen Chilean Grimm catheter was placed for temporary bladder rest with 10 mL of sterile water in the balloon and placed to gravity drainage. Anesthesia was reversed and patient was transferred to therecovery room in stable condition. Follow-up care: Patient will be discharged home after a successful trial of void. Prescription for Bactrim and Pyridium are provided. Patient reports he still has narcotic pain medication at home. Outpatient appointment for pathology review is confirmed. Patient is instructed to contact our serviceshould he note any fevers, chills, nausea, vomiting or other difficulties in the postoperative period. Intraoperative findings reviewed with the patient's family who were present here today. documented in this encounter Plan of Treatment Upcoming Encounters Date Type Department Care Team (Late st Contact Info) Description 04/25/2024 3:45 PM EDT Office Visit Urology, [facility] 132 [facility] [place] [address] Francisco Beltrán MD [address] [place] [address] [place] [address] 05/16/2024 9:40 AM EDT Office Visit General Internal Medicine [facility] 200 [facility] [place] [address] Ciro Zayas MD 200 [facility] [place] [address] 06/13/2024 9:30 AM EST Imaging Radiology, [address] [place] [address] 07/08/2024 9:30 AM EST Office Visit Cardiology, [facility] 132 [facility] [place] [address] Divya Haskins CRNP 400 [facility] [place] [address] 07/18/2024 10:00 AM EST Office Visit Rheumatology [address] [place] [address] Jerad Connelly CRNP [address] [facility] [place], [place] [address] 07/26/2024 10:00 AM EST Office Visit Pulmonary Medicine, [facility], [place] 132 [facility] [place] [address] Herbert Suárez MD [address] [place] [address] 10/21/2024 9:30 AM EDT Imaging Vascular Lab, [facility] 2nd Floor, [place] 132 [facility] [place] [address] 10/24/2024 10:40 AM EDT Office Visit Dermatology [facility] [address] [place] [address] Jacquelin Muñoz PA-C [address] [place] [address] Pending Results Name Type Priority Associated Diagnoses Date /Time SURGICAL PATHOLOGY Pathology Routine Bladder mass Mass of bladder 04/06/2024 8:26 AM EDT Scheduled Orders Name Type Priority Associated Diagnoses Orde r Schedule SURGICAL PATHOLOGY Pathology Routine Bladder mass Mass of bladder Release Upon Ordering for 1 Occurrences starting 04/06/2024, 1 completed Scheduled Procedures Name Priority Associated Diagnoses Date/Ti me CYSTOURETHROSCOPY WITH FULGURATION MEDIUM BLADDER TUMOR Bladder mass Mass of bladder 04/06/2024 7:51 AM EDT 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 Bladder mass Mass of bladder 04/06/2024 7:51 AM EDT Health Maintenance Due Date Last Done Comments Zoster Vaccines (1 of 2) 12/22/1987 DTap/Tdap Vaccines (1 - Tdap) 12/27/2009 12/26/2009, 12/26/2009 *ADVANCE DIRECTIVE NOT ON FILE 02/02/2022 Adult Wellness Visit 07/03/2022 07/03/2021 *BISPHONATE OR OTHER ACCEPTABLE MEDICATION NEEDED FOR OSTEOPOROSIS (REFER TO SMARTSET #1146) 12/18/2023 COVID-19 Vaccine ( season) 2024 10/23/2020, 10/02/2020 Influenza Vaccine (FLU shot) (#1) 2024 DXA Scan 06/10/2024 06/10/2022, 08/0 09/2019, 02/09/2018, Additional history exists Depression Screening 01/27/2025 01/28/2024 O2 ASSESSMENT COMPLETED IN PAST YEAR FOR COPD 04/06/2025 04/06/2024 Pneumococcal Vaccine: 65+ Years Completed 08/30/2014, 12/26/2009 Alpha-1 Antitrypsin Completed 08/20/2021 VITAMIN D LEVEL ONCE IN A LIFETIME-USE SMARTSET# [id number] Completed 07/16/2023, 05/27/2021, 05/18/2020, Additional history exists HPV (Gardasil) Vaccine Aged Out No lo nger eligible based on patient's age to complete this topic Hepatitis B Vaccine Aged Out No longe r eligible based on patient's age to complete this topic MENINGOCOCCAL (MENACTRA/MENVEO) Aged Out No longer eligible based on patient's age to complete this topic documented as of this encounter Medical Devices Not on filedocumented as of this encounter Visit Diagnoses Diagnosis Mass of bladder- Primary Other specified disorders of bladder Bladder mass Other specified disorders of bladder Bladder mass Other specified disorders of bladder documented in this encounter Administered Medications Inactive Administered Medications - up to 3 most recent administrations Medication Order MAR Action Action Date Dose Rate Site Acetaminophen (Ofirmev) inj 1,000 mg 1,000 mg, Intravenous, PREOP, 1 dose, First dose on Thu04/06/24 at 0745, Administer over 15 Minutes, Administer undiluted over 15 minutes! NOTE: Maximum of 4000 mg per 24 hours of acetaminophen from all acetaminophen containing products., Pre-Op, Indication: Patient is strictly NPO New Bag 04/06/2024 7:26 AM EDT 1,000 mg 400 mL/hr isolyte-S pH 7.4 infusion Intravenous, at 50 mL/hr, Plasma-LYTE 148, isolyte-S, and isolyte-S pH 7.4 are considered equivalent - including for MAR barcode scanning., CONTINUOUS, Starting on Thu04/06/24 at 0745, Until Thu04/06/24 at 1504, Pre-Op Restarted 04/06/2024 8:02 AM EDT New Bag 04/06/2024 7:27 AM EDT 50 mL/hr documented in this encounter Active and Recently Administered Medications Times are shown in EDT. Scheduled Medication Order 04/04/2024 04/05/2024 04/06/2024 Acetaminophen (Ofirmev) inj 1,000 mg (COMPLETED) 1,000 mg, Intravenous, PREOP, 1 dose, First dose on Thu04/06/24 at 0745, Administer over 15 Minutes, Administer undiluted over 15 minutes! NOTE: Maximum of 4000 mg per 24 hours of acetaminophen from all acetaminophen containing products., Pre-Op, Indication: Patient is strictly NPO 0726 (New Bag - Prov ider: Sara Root RN) ceFAZolin in dextrose (Ancef) ivpb 2 g (COMPLETED) 2 g, IV Piggyback, PREOP, 1 dose, First dose on Thu04/06/24 at 0745, Administer 60 minutes prior to skin incision, Pre-Op 0802 (Given - Provid er: ANGIE Smith) Continuous Medication Order 04/04/2024 04/05/2024 04/06/2024 isolyte-S pH 7.4 infusion Intravenous, at 50 mL/hr, Plasma-LYTE 148, isolyte-S, and isolyte-S pH 7.4 are considered equivalent - including for MAR barcode scanning., CONTINUOUS, Starting on Thu04/06/24 at 0745, Until Thu04/06/24 at 1504, Pre-Op 07 (New Bag - Prov ider: Sara Root RN)0801 (Paused - Provider: ANGIE Smith - Comment: Switch to gravity)0802 (Restarted - Provider: ANGIE Smith)0830 (Anes Intra-Op Fluid - Provider: ANGIE Smith) isolyte-S pH 7.4 infusion Intravenous, at 50 mL/hr, Plasma-LYTE 148, isolyte-S, and isolyte-S pH 7.4 are considered equivalent - including for MAR barcode scanning., CONTINUOUS, Starting on Thu04/06/24 at 0930, Until Thu04/06/24 at 1504, Post-op 0930 (Due) PRN Medication Order 04/04/2024 04/05/2024 04/06/2024 oxyCODONE-acetaminophen 5-325 mg per tab (Percocet) 1 Tablet 1 Tablet, Oral, Q4H PRN Pain, Moderate, Starting on Thu04/06/24 at 0850, Until Thu04/06/24 at 1449, For 6 hours, Maximum of 4 grams (4000 mg) of acetaminophen per day, Post-op sodium chloride IR 0.9 % irrigation (CANCELED) ONCE PRN INTRA PROCEDURE, Starting on Thu04/06/24 at 0830, Until Thu04/06/24 at 0843, Intra-Op 0830 (Given - Provid er: Francisco Beltrán MD - Comment: Cysto) documented in this encounter Advance Directives * Full Code (Latest Code Status on File) Date Activated Date Inactivated Comments 04/06/2024 8:51 AM 04/06/2024 3:04 PM This order r eflects the patients wishes and were consensually agreed upon. Question Answer Comments Discussion of Advance Directives occurred with: Patient * Full Code Date Activated Date Inactivated Comments 04/06/2024 7:02 AM 04/06/2024 8:51 AM This order r eflects the patients wishes and were consensually agreed upon. Question Answer Comments Discussion of Advance Directives occurred with: Patient * Full Code Date Activated Date Inactivated Comments 02/15/2024 8:20 AM 02/15/2024 3:47 PM This order r eflects the patients wishes and were consensually agreed upon. Question Answer Comments Discussion of Advance Direct lindsay occurred with: Not Discussed due to patient's condition Care Teams Ship Joiner Relationship Specialty Start Date End Date Ciro Zayas MD 200 [facility] [place] [address] PCP - General Internal Medicine 09/20/10 documented as of this encounter
--- OUTSIDE RECORDS SUMMARY | 2024-04-08 06:38 | External Medical Summary | Summary of Care ---
Author Name Unknown Organization [facility] Address [address] [place] [facility] [place] [address] Phone [phone] Care Team Providers Care Paving Bed Maker Name Role Phone Ciro Zayas MD Primary Care Provider + Reason for Visit * Reason Comments Outpatient Testing Encounter Details Date Type Department Care Team (Late st Contact Info) Description 03/28/2024 9:50 AM EDT Laboratory Laboratory, [facility] 132 [place] [address] [facility] 132 [place] [address] Bladder mass; Preop testing Allergies No known active allergiesdocumented as of this encounter (statuses as of 03/28/2024) Medications Medication Sig Dispensed Refills Start Date [...] the morning. 30 Tablet 1 01/14/2024 Active hydrOXYzine HCl 10 MG Oral Tablet (Atarax) [...] to 10 doses. 10 Tablet 02/15/2024 Active Pantoprazole Sodium 40 MG Oral Tablet Delayed Release (Protonix) Take 1 Tablet by mouth in the morning. 60 Tablet 02/17/2024 Active documented as of this encounter (statuses as of 03/28/2024) Active Problems Problem Noted Date Diagnosed Date [...] -19) 02/26/2022 Senile osteoporosis 12/24/2018 Atherosclerosis of [place] co ronary artery of [place] heart without angina pectoris 05/19/2018 History of [...] as of this encounter (statuses as of 03/28/2024) Resolved Problems Problem Noted Date Diagnosed Date Resolved Date COPD, group C, by GOLD 2017 classification 01/27/2022 11/26/2022 Overview: Per COPD GOLD Classification Pulmonary embolus 07/26/2021 02/26/2022 Moderate protein-calorie malnutrition 07/26/2021 10/15/2023 COPD, group A, by GOLD 2017 classification 02/27/2020 01/30/2022 Overview: Per COPD GOLD Classification Senile osteoporosis 12/31/2016 08/11/19 History of basal cell carcinoma 03/23/2015 06/02/2017 Overview: right pre-auricular ear 11/26 Gout 05/31/2013 03/10/2018 Alcoholism in remission 11/08/201202/17 COPD, mild 04/05/2012 03/01/2020 Overview: Per COPD GOLD Classification Dyslipidemia, goal LDL below 100 05/27/2011 10/02/2011 Tobacco use disorder 09/24/2010 022 ADVANCE DIRECTIVE INFORMATION 05/20/2010 03/10/2018 Overview: No, Advance Directive brochure offered , patient declined. Diverticulitis of colon 07/10/200902/2011 Overview: Have diverticular bleed in 2008 Dyslipidemia, goal LDL below 70 07/03/2009 05/27/2011 Overview: Per Lipid Taxonomy. COPD, severity to be determined 01/10/2009 04/05/2012 Skin sensation disturbance 12/01/2008 0 03/05/2017 Mixed dyslipidemia 10/06/2008 12/ 9 Overview: Per Lipid Taxonomy. Coronary atherosclerosis 10/06/2008 Overview: No obstructive lesions in 2008 - had coronary cath documented as of this encounter (statuses as of 03/28/2024) Immunizations Name Administration Dates Next Due COVID-19 mRNA, LNP-s, No Pre serve, 2-Dose Series (Pfizer) 10/23/2020,10/02/2020 Pneumococcal Conjugate Vacc, 13 Valent (Prevnar) [...] No 12/17/2023 Does the household have a re gular source of income? (Household - for ages [...] on file documented as of this encounter Plan of Treatment Upcoming Encounters Date Type Department Care Team (Latest Contact Info) Description 04/06/2024 12:28 PM EDT Hospital Encounter OR [facility], Operating Room, [facility] - 4th Floor [address] [place] [address] Francisco Beltrán MD [address] [place] [address] 04/06/2024 12:28 PM EDT - 04/06/2024 1:33 PM EDT Surgery OR [facility], Operating Room, [facility] - 4th Floor [address] [place] [address] Francisco Beltrán MD [address] [place] [address] CYSTOURETHROSCOPY WITH FULGURATION MEDIUM BLADDER TUMOR 04/11/2024 2:30 PM EDT Nurse Only Urology, [facility] [address] [facility] Nurse Urology [facility] 132 [place] [address] 04/25/2024 3:45 PM EDT Office Visit Urology, [facility] 132 [facility] [place] [address] Francisco Beltrán MD [address] [place] [address] 05/16/2024 9:40 AM EDT Office Visit General Internal Medicine [facility] [place] [address] [place] [address] Ciro Zayas MD [address] [facility] [place] [address] 06/13/2024 9:30 AM [facility] Imaging Radiology, [place] [address] [facility] [place] [address] 07/08/2024 9:30 AM EST Office Visit Cardiology, [facility] [address] Divya Haskins CRNP [address] [place] [address] 07/18/2024 10:00 AM EST Office Visit Rheumatology [address] [place] [address] Jerad Connelly CRNP [address] [place] [address] [place] [address] 07/26/2024 10:00 AM EST Office Visit Pulmonary Medicine, [address] [place] [address] Herbert Su[facility]rez MD [address] [facility] [address] 10/21/2024 9:30 AM EDT Imaging Vascular Lab, [facility] 2nd Floor, [address] [place] [address] 10/24/2024 10:40 AM EDT Office Visit Dermatology [facility] [address] [place] [address] Jacquelin Muñoz PA-C [address] [place] [address] Pending Results Name Type Priority Associated Diagnoses Date /Time CULTURE, URINE, QUANTITATIVE Lab Routine Bladder mass Preop testing 03/28/2024 9:54 AM EDT Scheduled Procedures Name Priority Associated Diagnoses Date/Ti me CYSTOURETHROSCOPY WITH FULGURATION MEDIUM BLADDER TUMOR Bladder mass Mass of bladder 04/06/2024 12:28 PM EDT 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 Bladder mass Mass of bladder 04/06/2024 12:28 PM EDT Health Maintenance Due Date Last Done Comments Zoster Vaccines (1 of 2) 12/22/1987 DTap/Tdap Vaccines (1 - Tdap) 12/27/2009 12/26/2009, 12/26/2009 *ADVANCE DIRECTIVE NOT ON FILE 02/02/2022 Adult Wellness Visit 07/03/2022 07/03/2021 *BISPHONATE OR OTHER ACCEPTABLE MEDICATION NEEDED FOR OSTEOPOROSIS (REFER TO SMARTSET #1146) 12/18/2023 COVID-19 Vaccine (3 - season) 2024 10/23/2020, 10/02/2020 Influenza Vaccine (FLU shot) (#1) 2024 DXA Scan 06/10/2024 06/10/2022, 08/0 09/2019, 02/09/2018, Additional history exists Depression Screening 01/27/2025 01/28/2024 O2 ASSESSMENT COMPLETED IN PAST YEAR FOR COPD 02/14/2025 02/15/2024 Pneumococcal Vaccine: 65+ Years Completed 08/30/2014, 12/26/2009 Alpha-1 Antitrypsin Completed 08/20/2021 VITAMIN D LEVEL ONCE IN A LIFETIME-USE SMARTSET# 20740 Completed 07/16/2023, 05/27/2021, 05/18/2020, Additional history exists [...] Bladder mass Other specified disorders of bladder Preop testing Preoperative examination, unspecified Bladder mass Other specified disorders of bladder Mass of bladder Other specified disorders of bladder documented in this encounter Advance Directives * Full Code (Latest Code Status on File) Date Activated Date Inactivated Comments 02/15/2024 8:20 AM 02/15/2024 3:47 PM This order r eflects the patients wishes and were consensually agreed upon. Question Answer Comments Discussion of Advance Direct lindsay occurred with: Not Discussed due to patient's condition Care Teams Paving Bed Maker Relationship Specialty Start Date End Date Ciro Zayas MD 200 [facility] [place] [address] PCP - General Internal Medicine 09/20/10 documented as of this encounter
--- OUTSIDE RECORDS SUMMARY | 2024-04-08 06:38 | External Medical Summary ---
Author Name Unknown Address Unknown Organization K01:[facility] - [address] [place] [id number] Laboratory Report Ordering Provider Test Date Status STEPHANIE URENA 03/28/2024 09:54:03 Final Observation Date Value Abnormality Reference (Units) Status Bacteria identified in Specimen by Culture 03/28/2024 09:54:03 No significant growth Final Test: Culture, Urine, Quanti tative
Specimen Source: Urine, Clean Catch
Specimen Type: Urine
Specimen Date: 03/28/202454
Result Date: 03/29/2024 0834
Result Status: Final result
Resulting Lab: [facility]
[address]
[facility] [address]

CULTURE

No significant growth

null Performing Location [facility] - [address] [facility] [address]
--- OUTSIDE RECORDS SUMMARY | 2024-04-08 06:38 | External Medical Summary | Summary of Care ---
Author Name Unknown Organization [facility] Address [address] [place] [address] Phone [phone] Care Team Providers Care Supervisor Word Processing Name Role Phone Ciro Zayas MD Primary Care Provider + Reason for Visit * Reason Onset Date Comments Post-Op 03/11/2024 Appointment 03/11/2024 Encounter Details Date Type Department Care Team (Late st Contact Info) Description 03/11/2024 Telephone Urology, [facility] 132 [facility] [place] [phone] Services, Scheduling [address] [place] [address] Post-Op; Appointment Allergies No known active allergiesdocumented as of this encounter (statuses as of 03/11/2024) Medications Medication Sig Dispensed Refills Start Date [...] as of this encounter (statuses as of 03/11/2024) Active Problems Problem Noted Date Diagnosed Date [...] -19) 02/26/2022 Senile osteoporosis 12/24/2018 Atherosclerosis of [place] co ronary artery of [place] heart without angina pectoris 05/19/2018 History of [...] as of this encounter (statuses as of 03/11/2024) Resolved Problems Problem Noted Date Diagnosed Date Resolved Date COPD, group C, by GOLD 2017 classification 01/27/2022 11/26/2022 Overview: Per COPD GOLD Classification Pulmonary embolus 07/26/2021 02/26/2022 Moderate protein-calorie malnutrition 07/26/2021 10/15/2023 COPD, group A, by GOLD 2017 classification 02/27/2020 01/30/2022 Overview: Per COPD GOLD Classification Senile osteoporosis 12/31/2016 08/11/19 History of basal cell carcinoma 03/23/2015 06/02/2017 Overview: right pre-auricular ear 5/10 Gout 05/31/2013 03/10/2018 Alcoholism in remission 11/08/201202/17 [...] as of this encounter (statuses as of 03/11/2024) Immunizations Name Administration Dates Next Due COVID-19 [...] No 12/17/2023 Does the household have a [facility] source of income? (Household - for ages [...] on file documented as of this encounter Miscellaneous Notes * Telephone Encounter - Maria Alejandra Hernandez OSA - 03/11/2024 11:12 AM EDT I spoke to pt and scheduled for 04/25 at 3:45 pm. Patient is aware. * Telephone Encounter - Magui Martines OSA - 03/11/2024 9:19 AM EDT Pt has his post op appointment for April with Dr Beltrán in [place] but he does not have transportation to that location and would need the appointment in [facility] na is August 2024. He also mentioned that Dr Beltrán said he would need treatment afterwards and he would need those appointments in [facility] as well. He can be reached at [phone], zf! documented in this encounter Plan of Treatment Upcoming Encounters Date Type Department Care Team (Latest Contact Info) Description 04/06/2024 1:01 PM EDT Hospital Encounter OR [facility], Operating Room, [facility] - 4th Floor [address] [place] [address] Francisco Beltrán MD [address] [place] [address] 04/06/2024 1:01 PM EDT - 04/06/2024 2:06 PM EDT Surgery OR [facility], Operating Room, [facility] - 4th Floor [address] [place] [address] Francisco Beltrán MD [address] [place] [address] CYSTOURETHROSCOPY WITH FULGURATION MEDIUM BLADDER TUMOR 04/11/2024 2:30 PM EDT [facility] [address] [place] [address] Michael, Nurse Urology [facility] [address] [place] [address] 04/25/2024 3:45 PM EDT Office Visit Urology, [facility] 132 [facility] [address] Francisco Beltrán MD [address] [place] [address] [place] [address] 05/16/2024 9:40 AM EDT Office Visit General Internal Medicine [facility] 200 [facility] [place] [address] Ciro Zayas MD 200 [facility] [place] [address] 06/13/2024 9:30 AM EST Imaging Radiology, [address] [place] [address] 07/08/2024 9:30 AM EST Office Visit Cardiology, [address] [place] [address] Divya Haskins CRNP [address] [place] [address] [place] [address] 07/18/2024 10:00 AM EST Office Visit Rheumatology [address] [place] [address] Jerad Connelly CRNP [address] [place] [address] [place] [address] 10/21/2024 9:30 AM EDT Imaging [facility] Lab, [facility] 132 [facility] [place] [address] 10/24/2024 10:40 AM EDT Office Visit Dermatology [facility] [place] [address] [place] [address] Jacquelin Muñoz PA-C [address] [facility] [place] [address] Scheduled Procedures Name Priority Associated Diagnoses Date/Ti me CYSTOURETHROSCOPY WITH FULGURATION MEDIUM BLADDER TUMOR Bladder mass Mass of bladder 04/06/2024 1:01 PM EDT 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 Bladder mass Mass of bladder 04/06/2024 1:01 PM EDT Health Maintenance Due Date Last Done Comments Zoster Vaccines (1 of 2) 12/22/1987 DTaP,Tdap,and Td Vaccines (1 - Tdap) 12/27/2009 12/26/2009, 12/26/2009 *ADVANCE DIRECTIVE NOT ON FILE 02/02/2022 Adult Wellness Visit 07/03/2022 07/03/2021 COVID-19 Vaccine ( season) 2023 10/23/2020, 10/02/2020 *BISPHONATE OR OTHER ACCEPTABLE MEDICATION NEEDED FOR OSTEOPOROSIS (REFER TO SMARTSET #1146) 12/18/2023 Influenza Vaccine (FLU shot) (#1) 2024 DXA Scan 06/10/2024 06/10/2022, 08/0 09/2019, 02/09/2018, Additional history exists Depression Screening 01/27/2025 01/28/2024 O2 ASSESSMENT COMPLETED IN PAST YEAR FOR COPD 02/14/2025 02/15/2024 Pneumococcal Vaccine: 65+ Years Completed 08/30/2014, 12/26/2009 Alpha-1 Antitrypsin Completed 08/20/2021 VITAMIN D LEVEL ONCE IN A LIFETIME-USE SMARTSET# [id number] Completed 07/16/2023, 05/27/2021, 05/18/2020, Additional history exists [...] Not on filedocumented as of this encounter Advance Directives * Full Code (Latest Code Status on File) Date Activated Date Inactivated Comments 02/15/2024 8:20 AM 02/15/2024 3:47 PM This order r eflects the patients wishes and were consensually agreed upon. Question Answer Comments Discussion of Advance Direct lindsay occurred with: Not Discussed due to patient's condition Care Teams Supervisor Word Processing Relationship Specialty Start Date End Date Ciro Zayas MD 200 [facility] [place] [address] PCP - General Internal Medicine 09/20/10 documented as of this encounter
--- OUTSIDE RECORDS SUMMARY | 2024-04-08 06:39 | External Medical Summary | Summary of Care ---
Author Name Unknown Organization [facility] Address [address] [place] [address] Phone [phone] Care Team Providers Care Generation Mechanic Helper Name Role Phone Ciro Zayas MD Primary Care Provider + Reason for Visit * Reason Onset Date Comments Post-Op 03/11/2024 Appointment 03/11/2024 Encounter Details Date Type Department Care Team (Late st Contact Info) Description 03/11/2024 Telephone Urology, [facility] 132 [facility] [place] [id number] Services, Scheduling [address] [place] [address] Post-Op; Appointment Allergies No known active allergiesdocumented [...] -19) 02/26/2022 Senile osteoporosis 12/24/2018 Atherosclerosis of hopi co 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 (Household - [...] encounter Miscellaneous Notes * Telephone Encounter - Magui Martines OSA - 03/11/2024 9:19 AM EDT Pt has his post op appointment for April with Dr Beltrán in [place] but he does not have transportation to that location and would need the appointment in [facility] na is August 2024. He also mentioned that Dr Beltrán said he would need treatment afterwards and he would need those appointments in [facility] as well. He can be reached at [phone], ty! documented in this encounter Plan of Treatment Upcoming Encounters Date Type Department Care Team (Latest Contact Info) Description 04/04/2024 3:45 PM EDT Office Visit Urology Teresa Frias [address] [place] [address] [place] [address] Francisco Beltrán MD 27 [place] [address] 04/06/2024 1:01 PM EDT Hospital Encounter [facility], Operating Room, [facility] - 4th Floor [address] [place] [address] Francisco Beltrán MD 27 [place] [address] 04/06/2024 1:01 PM EDT - 04/06/2024 2:06 PM EDT Surgery OR [facility], Operating Room, [facility] - 4th Floor [address] [place] [address] Francisco Beltrán MD [address] [place] [address] CYSTOURETHROSCOPY WITH FULGURATION MEDIUM BLADDER TUMOR 04/11/2024 2:30 PM EDT [facility] [address] [place] [address] Michael Nurse Urology Mauro [address] [place] [address] 04/28/2024 11:15 AM EDT Office Visit Urology Teresa Frias [address] [place] [address] [place] [address] Francisco Beltrán MD [address] [place] [address] 05/16/2024 9:40 AM EDT Office Visit General Internal Medicine [facility] 200 [facility] [place] [address] Ciro Zayas MD 200 [facility] [place] [address] 06/13/2024 9:30 AM EST Imaging Radiology, [address] [place] [address] 07/08/2024 9:30 AM EST Office Visit Cardiology, [facility] 132 [facility] [address] Divya Haskins CRNP [address] [place] [address] [place] [address] 07/18/2024 10:00 AM EST Office Visit Rheumatology [address] [place] [address] Jerad Connelly CRNP [address] [place] [address] [place] [address] 10/21/2024 9:30 AM EDT [facility] 132 [facility] [place] [address] 10/24/2024 10:40 AM EDT Office Visit Dermatology [facility] [place] [address] [place] [address] Jacquelin Muñoz PA-C [address] [facility] [place] [address] Scheduled Procedures Name Priority Associated Diagnoses Date/Ti [...] D LEVEL ONCE IN A LIFETIME-USE SMARTSET# [id number] Completed 07/16/2023, 05/27/2021, 05/18/2020, Additional history exists [...] Discussed due to patient's condition Care Teams Generation Mechanic Helper Relationship Specialty Start Date End Date Cior Zayas MD 200 [facility] [place] [place] [address] PCP - General Internal Medicine 09/20/10 documented as of this encounter
--- OUTSIDE RECORDS SUMMARY | 2024-04-08 06:39 | External Medical Summary | Summary of Care ---
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); Preop testing Allergies No known active allergiesdocumented as of this encounter (statuses as of 03/04/2024) Medications Medication Sig Dispensed Refills Start Date [...] as of this encounter (statuses as of 03/04/2024) Active Problems Problem Noted Date Diagnosed Date [...] -19) 02/26/2022 Senile osteoporosis 12/24/2018 Atherosclerosis of grindstone co ronary artery of grindstone heart without angina pectoris 05/19/2018 History of [...] as of this encounter (statuses as of 03/04/2024) Resolved Problems Problem Noted Date Diagnosed Date [...] as of this encounter (statuses as of 03/04/2024) Immunizations Name Administration Dates Next Due COVID-19 [...] on file documented as of this encounter Progress Notes * Francisco Beltrán MD - 03/03/2024 3:41 PM EDT [id number] PCP: [place] [address] [phone] Juan Vazquez is a 88 year old male, who presents for discussion of his TURBT pathology. Patient's past notes reviewed. He notes adequate healing after TURBT, dysuria and hematuria for 3-4 days. Patient notes he was able to void spontaneously and was discharged without catheter in place. Copy of pathology provided to patient. Patient feels his voiding has returned to baseline. Patient notes transportation remains an issue for him. Bladder cancer: Presented to Urology December 2023. [...] for years. Problem is about the same. Current Outpatient Medications Medication Sig Dispense Refill MULTI VITAMIN MENS PO TABS one tablet by mouth daily Cholecalciferol (VITAMIN D) 1000 UNIT Capsule 1 cap daily Nitroglycerin 0.4 MG Sublingual Tablet Sublingual (Nitrostat) Place under the tongue 1 Tablet every5 minutes as needed for Pain, Chest. up to 3 doses in 15 minutes 25 Tablet 11 Albuterol Sulfate HFA 108 (90 Base) MCG/ACT Inhalation Aerosol Solution Inhale by mouth 2 Puffs every 4 hours as needed for Wheezing. 18 g 1 Diclofenac Sodium 1 % External Gel (Voltaren) Apply 2 gm to the hands bilaterally every 6 hours as needed for pain (Patient not taking: Reported on 12/23/2023) Atorvastatin Calcium 40 MG Oral Tablet (Lipitor) TAKE 1 TABLET BY MOUTH EVERY DAY (Patient taking differently: every night at bedtime.) 90 Tablet 3 Cyclobenzaprine HCl 5 MG Oral Tablet (Flexeril) TAKE 1 TABLET BY MOUTH EVERY 8 HOURS NEEDED FOR MUSCLE SPASMS (Patient not taking: Reported on 12/23/2023) Ferrous Sulfate 325 (65 Fe) MG Oral Tablet (Feosol) Take 1 Tablet by mouth every other day. (Patient not taking: Reported on 01/25/2024) busPIRone HCl 10 MG Oral Tablet (Buspar) TAKE 1 TABLET BY MOUTH EVERY MORNING AND TAKE ONE TABLET BY MOUTH AT BEDTIME (Patient not taking: Reported on 01/05/2024) 60 Tablet 0 Finasteride 5 MG Oral Tablet (Proscar) Take 1 Tablet by mouth in the morning. 90 Tablet 3 LORazepam 0.5 MG Oral Tablet (Ativan) Take 1 Tablet by mouth every 8 hours as needed for Anxiety. 21 Tablet 0 Sertraline HCl 50 MG Oral Tablet (Zoloft) Take 1 Tablet by mouth in the morning. 30 Tablet 1 hydrOXYzine HCl 10 MG Oral Tablet (Atarax) TAKE 1/2 TO 1 TABLET TWO TIMES DAILY NEEDED FOR ANXIETY traZODone HCl 50 MG Oral Tablet (Desyrel) Take 1 Tablet by mouth at bedtime. 90 Tablet 3 oxyCODONE-Acetaminophen 5-325 MG Oral Tablet (Percocet) Take 1 Tablet by mouth every 8 hours as needed for Pain, Breakthrough for up to 10 doses. 10 Tablet 0 Pantoprazole Sodium 40 MG Oral Tablet Delayed Release (Protonix) Take 1 Tablet by mouth in the morning. 60 Tablet 0 No current facility-administered medications for this visit. Review of patient's allergies indicates: No Known Allergies Social History: Social History Tobacco Use Smoking status: Former Current packs/day: 0.00 Average packs/day: 1 pack/day for 50.0 years (50.0 ttl pk-yrs) Types: Cigarettes Start date: 07/12/1971 Quit date: 07/12/2021 Years since quittin.6 Smokeless tobacco: Never Substance Use Topics Alcohol use: Not Currently Comment: no drinks since 1978 Vaping/E-Cigarette Use Vaping/E-Cigarette Use Never User Vaping/E-Cigarette Substances Vaping/E-Cigarette Devices Family History Problem Relation Name Age of Onset Cancer Mother , lung No Past Hx Father alcoholic Heart Disorder Father [place] at 61 No Past Hx Brother Past Surgical History: Procedure Laterality Date COLONOSCOPY, DIAGNOSTIC (RECTUM) 06/19/2021 normal bx / COLONOSCOPY FLEXIBLE PROXIMAL DIAGNOSTIC performed by Shelly Phillip MD at ENDOSCOPY [facility] COLORECTAL CANCER SCREEN; NOT AT RISK 04/17/09 done diverticulosis,a single non-bleeding colonic angioectasia CYSTOSCOPY/TREAT MED BLADDER TUMOR N/A 02/15/2024 CYSTOURETHROSCOPY WITH FULGURATION MEDIUM BLADDER TUMOR performed by Sabas Merchant Jr., MD at OR [facility] DENTAL SURGERY PROCEDURE NEC 07/20/2013 EGD, FLEXIBLE, DIAGNOSTIC 06/19/2021 duodenal diverticulum,gastric heterotopia, reflux esophagitis / ESOPHAGOGASTRODUODENOSCOPY (EGD), FLEXIBLE, TRANSORAL, DIAGNOSTIC performed by Shelly Phillip MD at ENDOSCOPY [facility] INFORMATION 11/2023 EGD & Colonoscopy. INFORMATION Heart cath. 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[facility]) 2003 Anxiety and depression Beta-blockers contraindicated Bradycardia 12/01/2008 COPD (chronic obstructive pulmonary disease) ([facility]) COPD, mild ([facility]) 04/05/2012 Coronary atherosclerosis 10/06/2008 Dyslipidemia, goal LDL below 70 10/02/2011 Gout 05/31/2013 History of 2019 novel coronavirus disease (COVID-19) 02/26/2022 History of alcohol dependence ([facility]) 03/05/2017 History of cigarette smoking 02/26/2022 History of pulmonary embolism 02/26/2022 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 PAD (peripheral artery disease) ([facility]) 09/23/2022 Personal history of alcoholism ([facility]) sober since 10/1978 Patient Active Problem List Diagnosis Bradycardia Impotence of organic origin Restless leg syndrome Beta-blockers contraindicated YURY inhibitor intolerance Dyslipidemia, goal LDL below 70 History of alcohol dependence ([facility]) History of nonmelanoma skin cancer Varicose vein of leg History of gout Atherosclerosis of grindstone coronary artery of grindstone heart without angina pectoris Senile osteoporosis History of pulmonary embolism History of cigarette smoking History of 2019 novel coronavirus disease (COVID-19) PVD (peripheral vascular disease) ([facility]) AAA (abdominal aortic aneurysm) ([facility]) COPD, group D, by GOLD 2017 classification ([facility]) Frequent PVCs NSVT (nonsustained ventricular tachycardia) ([facility]) Aortic ectasia, abdominal ([facility]) Abnormal CT scan, bladder Bladder mass Constitutional: (-) fever and (-) chills ENT: (-) stridor Male : see HPI Musculoskeletal: (+) joint pain Neurology: (-) negative: no focal neurologic defect Psychiatry: (-) negative: no depression or anxiety Physical Exam Nursing note reviewed. Constitutional: General: He is not in acute distress. Appearance: Normal appearance. He is not ill-appearing or toxic-appearing. HENT: Head: Normocephalic and atraumatic. Right Ear: External ear normal. Left Ear: External ear normal. Nose: Nose normal. Mouth/Throat: Mouth: Mucous membranes are moist. Eyes: Extraocular Movements: Extraocular movements intact. Cardiovascular: Pulses: Normal pulses. Pulmonary: Effort: Pulmonary effort is normal. No respiratory distress. Abdominal: Palpations: Abdomen is soft. Tenderness: There is no abdominal tenderness. Musculoskeletal: Cervical back: Normal range of motion and neck supple. Lymphadenopathy: Cervical: No cervical adenopathy. Skin: Coloration: Skin is not cyanotic or pale. Neurological: Mental Status: He is alert and oriented to person, place, and time. Motor: No weakness. Gait: Gait normal. Psychiatric: Attention and Perception: Attention normal. Mood and Affect: Mood and affect normal. Impression/Plan: 88 yo male with pT1 high grade bladder cancer. Findings reviewed with patient, NCCN guidelines reviewed. Repeat TURBT would be indicated considering high-grade cancer. I suspect BCG will be indicated going into the future seen his high-grade disease. Patient wishes to have intervention done at [facility] if at all possible. He reassures me regarding his healthy vascular and cardiac status. Will defer this decision to the anesthesia service. If he is cleared for TURBT and intravesical mitomycin at [facility], we will proceed there. Otherwise, will plan on repeat resection at [facility]. Risks and benefits reviewed. The possibility of Grimm catheter placement in the postoperative context is emphasized. Contact us sooner with anyother urologic concerns. Consent obtained. Above content is personally reviewed. Patient vocalizes good understanding of the treatment plan. TURBT, possible intravesical instillation of mitomycin-C. 2-3 day trial of void. Three-week postop symptom check and pathology review. Francisco Beltrán MD 3:41 PM 03/03/2024 documented in this encounter Nursing Notes * Adrianna Perez LPN - 03/03/2024 3:15 PM EDT Bladder tumor removal 02/18/24 Mayur PSA Results: Lab Results Component Value Date/Time PSA - [facility] 0.96 10/01/2010 08:53 AM PSA - [facility] 0.89 10/13/2008 12:00 PM PSA SCREENING 1.15 08/31/2015 10:24 AM PSA SCREENING 1.06 07/26/2009 09:07 AM C/o- frequency, nocturia x 1-2 Pt notes sat in waiting room for 1 hr and urinated 3 times in the office today documented in this encounter Miscellaneous Notes * Addendum Note - Nas Jasso LPN - 03/04/2024 11:48 AM EDTAddended by: NAS JASSO on: 03/04/2024 11:48 AM Modules accepted: Orders documented in this encounter Plan of Treatment Upcoming Encounters Date Type Department Care Team (Late st Contact Info) Description 04/04/2024 3:45 PM EDT Office Visit Urology Teresa Frias [address] [facility] [address] [place] [address] Francisco Beltrán MD [address] [place] [address] 04/06/2024 Hospital Encounter OR [facility], Operating Room, [facility] - 4th Floor [address] [facility] [place] [address] Francisco Beltrán MD [address] [place] [address] 04/11/2024 2:30 PM EDT [facility] [address] [place] [address] [facility] [address] [place] [address] 04/28/2024 11:15 AM EDT Office Visit Urology Mary Ellen AlvesTeresa [address] [place] [address] Francisco Beltrán MD [address] [place] [address] 05/16/2024 9:40 AM EDT Office Visit General Internal Medicine [facility] 200 [place] [address] Ciro Zayas MD 200 [facility] [place] [address] 06/13/2024 9:30 AM EST Imaging Radiology, [address] [place] [address] 07/08/2024 9:30 AM EST Office Visit Cardiology, [facility] [address] [facility] [place] [address] Divya Haskins CRNP [address] [place] [address] [place] [address] 07/18/2024 10:00 AM EST Office Visit Rheumatology [place] [address] [facility] [place] [address] Jerad Connelly CRNP [address] [facility] [place], [place] [address] 10/21/2024 9:30 AM EDT Imaging [facility]ascular Lab, [facility] 132 [facility] [place] [address] 10/24/2024 10:40 AM EDT Office Visit Dermatology [facility] [place] 3[address] [facility] [address] Jacquelin Muñoz PA-C [address] [facility] [place] [address] Scheduled Orders Name Type Priority Associated Diagnoses Orde r Schedule CULTURE, URINE, QUANTITATIVE Lab Routine Bladder mass Preop testing Expected: 03/28/2024, Expires: 03/04/2025 Scheduled Procedures Name Priority Associated Diagnoses Date/Ti me CYSTOURETHROSCOPY WITH FULGU RATION MEDIUM BLADDER TUMOR Bladder mass Mass of bladder 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 Bladder mass Mass of bladder Health Maintenance Due Date Last Done Comments Zoster Vaccines (1 of 2) 12/22/1987 DTaP,Tdap,and Td Vaccines (1 - Tdap) 12/27/2009 12/26/2009, 12/26/2009 *ADVANCE DIRECTIVE NOT ON FILE 02/02/2022 Adult Wellness Visit 07/03/2022 07/03/2021 COVID-19 Vaccine ( season) 2023 10/23/2020, 10/02/2020 *BISPHONATE OR OTHER ACCEPTABLE MEDICATION NEEDED FOR OSTEOPOROSIS (REFER TO SMARTSET #1146) 12/18/2023 Influenza Vaccine (FLU shot) (#1) 2024 DXA Scan 06/10/2024 06/10/2022, 09/2019, 02/09/2018, Additional history exists Depression Screening 01/27/2025 01/28/2024 O2 ASSESSMENT COMPLETED IN PAST YEAR FOR COPD 02/14/2025 02/15/2024 Pneumococcal Vaccine: 65+ Years Completed 08/30/2014, 12/26/2009 Alpha-1 Antitrypsin Completed 08/20/2021 VITAMIN D LEVEL ONCE IN A LIFETIME-USE SMARTSET# [id number] Completed 07/16/2023, 05/27/2021, 05/18/2020, Additional history exists [...] as of this encounter Visit Diagnoses Diagnosis Bladder mass- Primary Other specified disorders of bladder Unspecified abnormal findings in urine Abnormal CT scan, bladder Nonspecific (abnormal) findings on radiological and other examination of genitourinary organs Mass of bladder [N32.89] Other specified disorders of bladder 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
--- OUTSIDE RECORDS SUMMARY | 2024-04-08 06:39 | External Medical Summary | Summary of Care ---
Author Name Unknown Organization [facility] Address [address] [place] [address] Phone [phone] Care Team Providers Care Company Pilot Name Role Phone Ciro Zayas MD Primary Care Provider + Reason for Visit * Reason Onset Date Comments Surgery 03/08/2024 Advice 03/08/2024 Encounter Details Date Type Department Care Team (Late st Contact Info) Description 03/08/2024 Telephone Urology Teresa Frias [address] [place] [address] Services, Scheduling [address] [place] [address] Surgery; Advice Allergies No known active allergiesdocumented as of this encounter (statuses as of 03/08/2024) Medications Medication Sig Dispensed Refills Start Date [...] as of this encounter (statuses as of 03/08/2024) Active Problems Problem Noted Date Diagnosed Date [...] as of this encounter (statuses as of 03/08/2024) Resolved Problems Problem Noted Date Diagnosed Date [...] offered , patient declined. Diverticulitis of colon 07/10/2009 03/02/2011 Overview: Have diverticular bleed in 2008 Dyslipidemia, goal LDL below 70 07/03/2009 05/27/2011 Overview: Per Lipid Taxonomy. COPD, severity to be determined 01/10/2009 04/05/2012 Skin sensation disturbance 12/01/2008 0 03/05/2017 Mixed dyslipidemia 10/06/2008 9 Overview: Per Lipid Taxonomy. Coronary atherosclerosis 10/06/2008 Overview: No obstructive lesions in 2008 - had coronary cath documented as of this encounter (statuses as of 03/08/2024) Immunizations Name Administration Dates Next Due COVID-19 [...] No 12/17/2023 Does the household have a [facility] source of income? (Household - for ages [...] Telephone Encounter - Magui Martines OSA - 03/08/2024 1:56 PM EDT Pt wanted to confirm surgery date of 04/06/24 and if it could be at [facility] or not? He also wanted to make the office aware that he now has transportation in place the day of the surgery. documented in this encounter Plan of Treatment Upcoming Encounters Date Type Department Care Team (Latest Contact Info) Description 04/04/2024 3:45 PM EDT Office Visit UrologTeresa Medina [address] [place] [address] Francisco Beltrán MD [address] [place] [address] 04/06/2024 1:01 PM EDT Hospital Encounter OR [facility], Operating Room, [facility] - 4th Floor [address] [place] [place] [address] Francisco Beltrán MD [address] [place] [address] 04/06/2024 1:01 PM EDT - 04/06/2024 2:06 PM EDT Surgery OR [facility], Operating Room, [facility] Floor [address] [place] [address] Francisco Beltrán MD [address] [place] [address] CYSTOURETHROSCOPY WITH FULGURATION MEDIUM BLADDER TUMOR 04/11/2024 2:30 PM EDT [facility] [address] [place] [address] Nurse Michael Urology Mauro [address] [place] [address] 04/28/2024 11:15 AM EDT Office Visit UrologTeresa Medina [address] [place] [address] [place] [address] Francisco Beltrán MD [address] [place] [address] 05/16/2024 9:40 AM EDT Office Visit General Internal Medicine [facility] 200 [facility] [place] [address] Ciro Zayas MD 200 [facility] [place] [address] 06/13/2024 9:30 AM EST Imaging Radiology, [place] [address] [facility] [place] [address] 07/08/2024 9:30 AM EST Office Visit Cardiology, [facility] [address] [place] [address] Divya Haskins CRNP [address] [place] [address] [place] [address] 07/18/2024 10:00 AM EST Office Visit Rheumatology [place] [address] [facility] [place] [address] Jerad Connelly CRNP [address] [place] [address] [place] [address] 10/21/2024 9:30 AM EDT Imaging Vascular Lab, [facility] 132 [place] [address] 10/24/2024 10:40 AM EDT Office Visit Dermatology [facility] [place] [address] [place] [address] Jacquelin Muñoz PA-C [address] [facility] [place] [address] Scheduled Procedures Name Priority Associated Diagnoses Date/Ti [...] Adult Wellness Visit 07/03/2022 07/03/2021 COVID-19 Vaccine (3 - season) 2023 10/23/2020, 10/02/2020 *BISPHONATE OR OTHER ACCEPTABLE MEDICATION NEEDED FOR OSTEOPOROSIS (REFER TO SMARTSET #1146) 12/18/2023 Influenza Vaccine (FLU shot) (#1) 2024 DXA Scan 06/10/2024 06/10/2022, 0809/2019, 02/09/2018, Additional history exists Depression Screening 01/27/2025 01/28/2024 O2 ASSESSMENT COMPLETED IN PAST YEAR FOR COPD 02/14/2025 02/15/2024 Pneumococcal Vaccine: 65+ Years Completed 08/30/2014, 12/26/2009 Alpha-1 Antitrypsin Completed 08/20/2021 VITAMIN D LEVEL ONCE IN A LIFETIME-USE SMARTSET# [id number] Completed 07/16/2023, 05/27/2021, 05/18/2020, Additional history exists [...] Discussed due to patient's condition Care Teams Company Pilot Relationship Specialty Start Date End Date Ciro Zayas MD 200 [facility], [place] [id number] PCP - General Internal Medicine 09/20/10 documented as of this encounter
--- OUTSIDE RECORDS SUMMARY | 2024-04-08 06:39 | External Medical Summary | Summary of Care ---
Author Name Unknown Organization [facility] Address [address] [facility] [place] [address] Phone [phone] Care Team Providers Care Equal Opportunity Counselor Name Role Phone Ciro Zayas MD Primary Care Provider + Reason for Visit * Reason Onset Date Comments Surgery 03/04/2024 TURBT at [facility] Encounter Details Date Type Department Care Team (Late st Contact Info) Description 03/04/2024 Telephone Urology Teresa Frias [address] [place] [address] Francisco Beltrán MD [address] [place] [address] Surgery (TURBT at [facility]... 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 Coronary atherosclerosis [...] encounter Miscellaneous Notes * Telephone Encounter - Mikala Jasso LPN - 03/04/2024 11:55 AM EDT Spoke with patient and he is now agreeable to have procedure done at [facility]. Scheduled for 04/06. Instructions verbally reviewed and written copy mailed. * Telephone Encounter - Clarissa Matos OSA - 03/04/2024 10:25 AM EDT PT calling in asking to talk to surgery scheduling. Please advise * Telephone Encounter - Mikala Jasso LPN - 03/04/2024 8:22 AM EDT Patient was seen by Dr Beltrán for follow up to bladder cancer and advised to have TURBT. [facility] is[facility]. Please review chart and advise if able to offer or does patient need to be done at [facility]. documented in this encounter Plan of Treatment Upcoming Encounters Date Type Department Care Team (Late st Contact Info) Description 04/04/2024 3:45 PM EDT Office Visit Urology Teresa Frias [address] [place] [address] [place] [address] Francisco Beltrán MD 27 [place] [address] 04/06/2024 Hospital Encounter OR [facility], Operating Room, [facility] - 4th Floor 400 [facility] [place] [address] Francisco Beltrán MD 27 [place] [address] 04/11/2024 2:30 PM EDT Nurse Only Urology, [facility] 132 [facility] [place] [address] Michael Nurse Urology [facility] [address] [place] [address] 04/28/2024 11:15 AM EDT Office Visit Urology Teresa Frias [address] [place] [address] Francisco Beltrán MD [address] [place] [address] 05/16/2024 9:40 AM EDT Office Visit General Internal Medicine [facility] 200 [facility] [place] [address] Ciro Zayas MD [address] [facility] [place] [address] 06/13/2024 9:30 AM EST Imaging Radiology, [place] [address] [place] [address] 07/08/2024 9:30 AM EST Office Visit Cardiology, [facility] 132 [facility] [address] Divya Haskins CRNP [address] [place] [address] [place] [address] 07/18/2024 10:00 AM EST Office Visit Rheumatology [place] [address] [facility] [place], [place] [address] Jerad Connelly CRNP [address] [place] [address] [place], [place] [address] 10/21/2024 9:30 AM EDT Imaging Vascular Lab, [facility] 132 [facility] [place] [address] 10/24/2024 10:40 AM EDT Office Visit Dermatology [address], [place] [address] [place] [address] Jacquelin Muñoz PA-C [address] [facility] [place] [address] Scheduled Procedures Name Priority Associated Diagnoses Date/Ti [...] D LEVEL ONCE IN A LIFETIME-USE SMARTSET# [id number] Completed 07/16/2023, 05/27/2021, 05/18/2020, Additional history exists [...] Discussed due to patient's condition Care Teams Equal Opportunity Counselor Relationship Specialty Start Date End Date Ciro Zayas MD 200 [place] [address] PCP - General Internal Medicine 09/20/10 documented as of this encounter
--- OUTSIDE RECORDS SUMMARY | 2024-04-08 06:39 | External Medical Summary | Summary of Care ---
Author Name Unknown Organization [facility] Address [address] [facility] [place] [address] Phone [phone] Care Team Providers Care Dehydrogenation Operator Name Role Phone Ciro Zayas MD Primary Care Provider + Reason for Visit * Reason Onset Date Comments Surgery 03/04/2024 TURBT at [facility] Encounter Details Date Type Department Care Team (Late st Contact Info) Description 03/04/2024 Telephone Urology Teresa Frias [address] [place] [address] Francisco Beltrán MD [address] [place] [address] Surgery (TURBT at [facility]... 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 * Telephone Encounter - Mikala Jasso LPN - 03/04/2024 12:20 PM EDT Patient called back requesting to have chart reviewed for possibility at [facility] again because of ongoing transportation issues. Advised that I would resend message to anesthesia for consideration. Patient will accept 04/18 surgery date if approved. * Telephone Encounter - Mikala Jasso LPN - 03/04/2024 11:55 AM EDT Spoke with patient and he is now agreeable to have procedure done at [facility]. Scheduled for 04/06. Instructions verbally reviewed [...] to have TURBT. Patient isrequesting surgery at [facility] if possible. Please review chart and advise if able to offer or does patient need to be done at [facility]. documented in this encounter Plan of Treatment Upcoming Encounters Date Type Department Care Team (Latest Contact Info) Description 04/04/2024 3:45 PM EDT Office Visit Urology Teresa Frias [address] [place] [address] Francisco Beltrán MD 27 [place] [address] 04/06/2024 1:01 PM EDT Hospital Encounter OR [facility], Operating Room, [facility] - 4th Floor [address] [place] [address] Francisco Beltrán MD 27 [place] [address] 04/06/2024 1:01 PM EDT - 04/06/2024 2:06 PM EDT Surgery OR [facility], Operating Room, [facility] Floor [address] [place] [address] Francisco Beltrán MD 27 [place] [address] CYSTOURETHROSCOPY WITH FULGURATION MEDIUM BLADDER TUMOR 04/11/2024 2:30 PM EDT Nurse Only Urology, [facility] 132 [facility] [place] [address] [facility] Nurse Urology [facility] 132 [facility] [address] 04/28/2024 11:15 AM EDT Office Visit Urology Teresa Frias [address] [place] [address] Francisco Beltrán MD 27 [place] [address] 05/16/2024 9:40 AM EDT Office Visit General Internal Medicine [facility] [place] 200 [place] [address] Ciro Zayas MD 200 [facility] [place] [address] 06/13/2024 9:30 AM EST Imaging Radiology, [facility] [address] [facility] [place], [place] [address] 07/08/2024 9:30 AM EST Office Visit Cardiology, [facility] 132 [facility] [place] [address] Divya Haskins CRNP [address] [place] [address] 07/18/2024 10:00 AM EST Office Visit Rheumatology [facility] [address] [facility] [place] [address] Jerad Connelly CRNP [address] [facility] [place] [address] 10/21/2024 9:30 AM EDT Imaging Vascular Lab, [facility] 132 [facility] [place] [address] 10/24/2024 10:40 AM EDT Office Visit Dermatology [facility] 3[address] [place] [address] Jacquelin Muñoz PA-C [address] [place] [address] Scheduled Procedures Name Priority Associated Diagnoses Date/Ti [...] D LEVEL ONCE IN A LIFETIME-USE SMARTSET# [id number] Completed 07/16/2023, 05/27/2021, 05/18/2020, Additional history exists [...] Discussed due to patient's condition Care Teams Dehydrogenation Operator Relationship Specialty Start Date End Date Ciro Zayas MD 200 [facility] [place] [address] PCP - General Internal Medicine 09/20/10 documented as of this encounter
--- OUTSIDE RECORDS SUMMARY | 2024-04-08 06:39 | External Medical Summary | Summary of Care ---
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 (Household - for [...] encounter Miscellaneous Notes * Telephone Encounter - Maritza Soni OSA - 03/08/2024 2:22 PM EDT I called and spoke with the patient and made him aware that he [facility] Patient was offered to move to [facility] if he wanted, but it would be after that date. Patient declined stating that 04/06/24 was fine with him and he has transportation lined up. * Telephone Encounter - Magui Martines OSA - 03/08/2024 1:56 PM EDT Pt wanted to confirm surgery date of 04/06/24 and if it could be at [facility] or not? He also wanted to make the office aware that he now has transportation in place the day of the surgery. documented in this encounter Plan of Treatment Upcoming Encounters Date Type Department Care Team (Latest Contact Info) Description 04/04/2024 3:45 PM EDT Office Visit Urology Teresa Frias 27 [place] [address] Francisco Beltrán MD 27 [place] [address] 04/06/2024 1:01 PM EDT [facility], [facility], [facility] - 4th Floor [address] [place] [address] Francisco Beltrán MD 27 [place] [address] 04/06/2024 1:01 PM EDT - 04/06/2024 2:06 PM EDT Surgery OR [facility], Operating Room, [facility] - 4th Floor [address] [place] [address] Francisco Beltrán MD 27 [place] [address] CYSTOURETHROSCOPY WITH FULGURATION MEDIUM BLADDER TUMOR 04/11/2024 2:30 PM EDT Nurse Only Urology, [facility] [place] [address] Michael Nurse Urology [facility] [address] [place] [address] 04/28/2024 11:15 AM EDT Office Visit Urology Teresa Frias [address] [place] [address] Francisco Beltrán MD [address] [place] [address] 05/16/2024 9:40 AM EDT Office Visit General Internal Medicine [facility] 200 [facility] [place] [address] Ciro Zayas MD 200 [facility] [place] [address] 06/13/2024 9:30 AM EST Imaging Radiology, [address] [place] [address] 07/08/2024 9:30 AM EST Office Visit Cardiology, [facility] 132 [facility] [place] [address] Divya Haskins CRNP [address] [place] [address] [place] [address] 07/18/2024 10:00 AM EST Office Visit Rheumatology [place] [address] [facility] [place] [address] Jerad Connelly CRNP [address] [place] [address] [place] [address] 10/21/2024 9:30 AM EDT Imaging Vascular Lab, [facility] 2nd Floor, [address] [place] [address] 10/24/2024 10:40 AM EDT Office Visit Dermatology [facility] [place] 3[address] [facility] [place] [address] Jacquelin Muñoz PA-C [address] [facility] [place] [address] Scheduled Procedures Name Priority Associated Diagnoses Date/Ti [...] D LEVEL ONCE IN A LIFETIME-USE SMARTSET# [id number] Completed 07/16/2023, 05/27/2021, 05/18/2020, Additional history exists [...] Discussed due to patient's condition Care Teams Heeler Machine Relationship Specialty Start Date End Date Ciro Zayas MD 200 [facility] [address] PCP - General Internal Medicine 09/20/10 documented as of this encounter
--- OUTSIDE RECORDS SUMMARY | 2024-04-08 06:39 | External Medical Summary | Summary of Care ---
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 (Household [...] 04/06/24 and if it could be at [facility] or not? He also wanted to make the office aware that he now has transportation in place the day of the surgery. documented in this encounter Plan of Treatment Upcoming Encounters Date Type Department Care Team (Latest Contact Info) Description 04/04/2024 3:45 PM EDT Office Visit UrologTeresa Medina [address] [place] [address] Francisco Beltrán MD 27 [place] [address] 04/06/2024 1:01 PM EDT Hospital Encounter OR [facility], Operating Room, [facility] - 4th Floor [address] [place] [address] Francisco Beltrán MD 27 [place] [address] 04/06/2024 1:01 PM EDT - 04/06/2024 2:06 PM EDT Surgery OR [facility], Operating Room, [facility] - [facility] Floor [address] [place] [address] Francisco Beltrán MD 27 [place] [address] CYSTOURETHROSCOPY WITH FULGURATION MEDIUM BLADDER TUMOR 04/11/2024 2:30 PM EDT Nurse [facility] 132 [place] [address] Nurse Michael Urology Ma[place] 132 [place] [address] 04/28/2024 11:15 AM EDT Office Visit UrologTeresa Medina [address] [place] [address] Francisco Beltrán MD [address] [place] [address] 05/16/2024 9:40 AM EDT Office Visit General Internal Medicine [facility] 200 [facility] [place] [address] Ciro Zayas MD 200 [facility] [place] [address] 06/13/2024 9:30 AM EST Imaging Radiology, [place] 3[address]40 [facility] [place] [address] 07/08/2024 9:30 AM EST Office Visit Cardiology, [facility] 132 [place] [address] Divya Haskins CRNP [address] [place] [address] [place] [address] 07/18/2024 10:00 AM EST Office Visit Rheumatology [place] [address]40 [facility] [place] [address] Jerad Connelly CRNP [address] [place] [address] [place] [address] 10/21/2024 9:30 AM EDT Imaging Vascular Lab, [facility] 132 [facility] [place] [address] 10/24/2024 10:40 AM EDT Office Visit Dermatology [facility] [place] [address] [place] [address] Jacquelin Muñoz PA-C 3228 [facility] [place] [address] Scheduled Procedures Name Priority Associated Diagnoses Date/Ti [...] D LEVEL ONCE IN A LIFETIME-USE SMARTSET# [id number] Completed 07/16/2023, 05/27/2021, 05/18/2020, Additional history exists [...] Discussed due to patient's condition Care Teams Footwear Stitcher Relationship Specialty Start Date End Date Ciro Zayas MD 200 [facility], [place] [id number] PCP - General Internal Medicine 09/20/10 documented as of this encounter
--- OUTSIDE RECORDS SUMMARY | 2024-04-08 06:39 | External Medical Summary | Summary of Care ---
Author Name Unknown Organization [facility] Address [address] [facility] [place] [address] Phone [phone] Care Team Providers Care Supervisor Stripping Name Role Phone Ciro Zayas MD Primary Care Provider + Reason for Visit * Reason Onset Date Comments Surgery 03/04/2024 TURBT at [facility] Encounter Details Date Type Department Care Team (Late st Contact Info) Description 03/04/2024 Telephone Urology Teresa Frias [address] [place] [address] Francisco Beltrán MD [address] [place] [address] Surgery (TURBT at [facility]... 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 Please advise * Telephone Encounter - Mikala Jasso LPN - 03/04/2024 8:22 AM EDT Patient was seen by Dr Beltrán for follow up to bladder cancer and advised to have TURBT. [facility]. Please review chart and advise if able to offer or does patient need to be done at [facility]. documented in this encounter Plan of Treatment Upcoming Encounters Date Type Department Care Team (Late st Contact Info) Description 04/04/2024 3:45 PM EDT Office Visit Urology Teresa Frias [address] [place] [address] Francisco Beltrán MD 27 [place] [address] 05/16/2024 9:40 AM EDT Office Visit General Internal Medicine [facility] 200 [facility] [place] [address] Ciro Zayas MD 200 [facility] [place] [address] 06/13/2024 9:30 AM EST Imaging Radiology, [facility] 2520 [facility] [place] [address] 07/08/2024 9:30 AM EST Office Visit Cardiology, [facility] [address] [place] [address] Divya Haskins CRNP [address] [place] [address] [place] [address] 07/18/2024 10:00 AM EST Office Visit Rheumatology [facility] 2520 [facility] [place], [place] [address] Jerad Connelly CRNP [address] [facility] [place] [address] 10/21/2024 9:30 AM EDT Imaging Vascular Lab, [facility] 2nd [facility] [place] [address] [facility] [place] [address] 10/24/2024 10:40 AM EDT Office Visit Dermatology [facility] [place] [address] [place] [address] Jacquelin Muñoz PA-C 3[address] [place] [address] Scheduled Procedures Name Priority Associated Diagnoses Date/Ti [...] D LEVEL ONCE IN A LIFETIME-USE SMARTSET# [id number] Completed 07/16/2023, 05/27/2021, 05/18/2020, Additional history exists [...] due to patient's condition Care Teams Supervisor Stripping Relationship Specialty Start Date End Date Ciro Zayas MD 200 [place] [address] PCP - General Internal Medicine 09/20/10 documented as of this encounter
--- OUTSIDE RECORDS SUMMARY | 2024-04-08 06:39 | External Medical Summary | Summary of Care ---
Author Name Unknown Organization [facility] Address [address] [facility] [place] [address] Phone [phone] Care Team Providers Care Special Education Case Manager Name Role Phone Ciro Zayas MD Primary Care Provider + Reason for Visit * Reason Onset Date Comments Surgery 03/04/2024 TURBT at [facility] Encounter Details Date Type Department Care Team (Late st Contact Info) Description 03/04/2024 Telephone Urology Teresa Frias [address] [place] [address] Francisco Beltrán MD [address] [place] [address] Surgery (TURBT at [facility]... Allergies No known active allergiesdocumented as [...] -19) 02/26/2022 Senile osteoporosis 12/24/2018 Atherosclerosis of [place] co ronary artery of [place] heart without angina pectoris 05/19/2018 History of [...] to have chart reviewed for possibility at [facility] again because of ongoing transportation issues. Advised that I would resend message to anesthesia for consideration. Patient will accept 04/18 surgery date if approved. * Telephone Encounter - Mikala Jasso LPN - 03/04/2024 11:55 AM EDT Spoke with patient and he is now agreeable to have procedure done at [facility]. Scheduled for 04/06. Instructions verbally reviewed and [...] TURBT. Patient isrequesting surgery at [facility] if possible. Please review chart and advise if able to offer or does patient need to be done at [facility]. documented in this encounter Plan of Treatment Upcoming Encounters Date Type Department Care Team (Late st Contact Info) Description 04/04/2024 3:45 PM EDT Office Visit Urology Teresa Frias [address] [place] [address] Francisco Beltrán MD [address] [place] [address] 04/06/2024 Hospital Encounter OR GL, Operating Room, [facility] - 4th Floor [address] [place] [address] Francisco Beltrán MD [address] [place] [address] 04/11/2024 2:30 PM EDT Nurse Only Urology, [facility] 132 [facility] [place] [address] [facility] Nurse Urology [facility] [address] [place] [address] 04/28/2024 11:15 AM EDT Office Visit Urology Teresa Frias [address] [facility] [address] [place] [address] Francisco Beltrán MD [address] [place] [address] 05/16/2024 9:40 AM EDT Office Visit General Internal Medicine [facility] 200 [facility] [place] [address] Ciro Zayas MD 200 [facility] [place], [place] [address] 06/13/2024 9:30 AM EST Imaging Radiology, [place] [address] [facility] [place] [address] 07/08/2024 9:30 AM EST Office Visit Cardiology, [facility] 132 [facility] [place] [address] Divya Haskins CRNP [address] [place] [address] 07/18/2024 10:00 AM EST Office Visit Rheumatology [place] [address] [facility] [place] [address] Jerad Connelly, KENN [address] [facility] [place] [address] 10/21/2024 9:30 AM EDT Imaging Vascular Lab, [facility] 2nd [facility], [place] [address] [facility] [place] [address] 10/24/2024 10:40 AM EDT Office Visit Dermatology [facility], [place] [address] [facility] [address] Jacquelin Muñoz PA-C 32[address] [facility] [place] [address] Scheduled Procedures Name Priority Associated Diagnoses Date/Ti [...] Visit 07/03/2022 07/03/2021 COVID-19 Vaccine (3 - 2022- season) 2023 10/23/2020, 10/02/2020 *BISPHONATE OR OTHER [...] D LEVEL ONCE IN A LIFETIME-USE SMARTSET# [id number] Completed 07/16/2023, 05/27/2021, 05/18/2020, Additional history exists [...] Discussed due to patient's condition Care Teams Special Education Case Manager Relationship Specialty Start Date End Date Ciro Zayas MD 200 [place] [address] PCP - General Internal Medicine 09/20/10 documented as of this encounter
--- OUTSIDE RECORDS SUMMARY | 2024-04-08 06:40 | External Medical Summary ---
Author Name Unknown Address Unknown Organization K09:[facility] [place] [address] Laboratory Report Ordering Provider Test Date Status PURVI WARD 02/22/2024 09:16:45 Final Observation Date Value Abnormality Reference (Units ) Status WBC, Total 02/22/2024 09:16:45 8.77 4.00-10.8 0 (K/uL) Final RBC 02/22/2024 09:16:45 4.48 4.50-5.25 (M/uL) Final Hemoglobin 02/22/2024 09:16:45 13.7 Below low normal 14 .0-16.8 (g/dL) Final HCT 02/22/2024 09:16:45 40.8 40.0-48.4 (%) Final MCV 02/22/2024 09:16:45 91.1 82.0-99.5 (fL) Final MCH 02/22/2024 09:16:45 30.6 27.0-34.0 (pg) Final MCHC 02/22/2024 09:16:45 33.6 32.0-36.0 (g/dL) Final RDW 02/22/2024 09:16:45 13.2 11.5-15.5 (%) Final Platelets 02/22/2024 09:16:45 201 140-400 (K /uL) Final MPV 02/22/2024 09:16:45 9.0 6.6-11.1 ( fL) Final Performing Location [facility] [place] [address]
--- OUTSIDE RECORDS SUMMARY | 2024-04-08 06:40 | External Medical Summary ---
Author Name Unknown Address Unknown Organization K01:[facility] - [address] [facility] [address] [place] [address] Laboratory Report Ordering Provider Test Date Status PURVI WARD 02/22/2024 09:16:45 Final Observation Date Value Abnormality Reference (Units ) Status Ferritin 02/22/2024 09:16:45 61 30-400 (ng /mL) Final Performing Location [facility] - [address] [place] [address]
--- OUTSIDE RECORDS SUMMARY | 2024-04-08 06:40 | External Medical Summary | Summary of Care ---
Author Name Unknown Organization [facility] Address [address] [place] [address] Phone [phone] Care Team Providers Care Us Customs And Border Officer Name Role Phone Ciro Loja MD Primary Care Provider + Reason for Visit * Reason Onset Date Comments Medication Refill 02/17/2024 Encounter Details Date Type Department Care Team (Late st Contact Info) Description 02/17/2024 Refill General Internal Medicine [facility] 200 [place] [address] Ciro Loja MD 200 [place] [address] Allergies No known active allergiesdocumented as of this encounter (statuses as of 02/17/2024) Medications Medication Sig Dispensed Refills Start Date [...] HFA 108 (90 Base) MCG/ACT Inhalation Aerosol SolutionIndications: COPD, mild (HCC) Inhale by mouth 2 Puffs every 4 hours as needed for Wheezing. 18 g 1 03/06/2022 Active Diclofenac Sodium 1 % External Gel (Voltaren)Indication s:Bilateral hand pain Apply 2 gm to the hands bilaterally every 6 hours as needed for pain 10/15/2023 Active Atorvastatin Calcium 40 MG Oral Tablet (Lipitor)Indications :Coronary atherosclerosis due to lipid rich plaque TAKE 1 TABLET BY MOUTH EVERY DAY 90 Tablet 3 10/23/2023 Active Additional Information Patient taking differently: QHS, Reported on 01/25/2024 Cyclobenzaprine HCl 5 MG Oral Tablet (Flexeril) TAKE 1 TABLET BY MOUTH EVERY 8 HOURS NEEDED FOR MUSCLE SPASMS 11/20/2023 Active Ferrous Sulfate 325 (65 Fe) MG Oral Tablet (Feosol)Indications: Decreased hemoglobin Take 1 Tablet by mouth every other day. 12/23/2023 Active busPIRone HCl 10 MG Oral Tablet (Buspar)Indications: JAN (generalized anxiety disorder) TAKE 1 TABLET BY MOUTH EVERY MORNING AND TAKE ONE TABLET BY MOUTH AT BEDTIME 60 Tablet 12/31/2023 Active Additional Information Patient not taking.Reported on 01/05/2024 Finasteride 5 MG Oral Tablet (Proscar) Take 1 Tablet by mouth in the morning. 90 Tablet 3 01/11/2024 Active LORazepam 0.5 MG Oral Tablet (Ativan)Indications: JAN (generalized anxiety disorder) Take 1 Tablet by mouth every 8 hours as needed for Anxiety. 21 Tablet 01/14/2024 Active Sertraline HCl 50 MG Oral Tablet (Zoloft)Indications: JAN (generalized anxiety disorder) Take 1 Tablet by mouth in the morning. 30 Tablet 1 01/14/2024 Active hydrOXYzine HCl 10 MG Oral Tablet (Atarax) TAKE 1/2 TO 1 TABLET TWO TIMES DAILY NEEDED FOR ANXIETY 01/20/2024 Active traZODone HCl 50 MG Oral Tablet (Desyrel) Take 1 Tablet by mouth at bedtime. 90 Tablet 3 02/11/2024 Active oxyCODONE-Acetaminop hen 5-325 MG Oral Tablet (Percocet) Take 1 Tablet by mouth every 8 hours as needed for Pain, Breakthrough for up to 10 doses. 10 Tablet 02/15/2024 Active Pantoprazole Sodium 40 MG Oral Tablet Delayed Release (Protonix) Take 1 Tablet by mouth in the morning. 60 Tablet 02/17/2024 Active Pantoprazole Sodium 40 MG Oral Tablet Delayed Release (Protonix) Take 1 Tablet by mouth in the morning. 60 Tablet 01/01/2024 02/17/20 24 Discontinu ed(Refill) documented as of this encounter (statuses as of 02/17/2024) Active Problems Problem Noted Date Diagnosed Date Abnormal CT scan, bladder 01/11/2024 Bladder mass [...] -19) 02/26/2022 Senile osteoporosis 12/24/2018 Atherosclerosis of [place] co ronary artery of [place] heart without angina pectoris 05/19/2018 History of [...] as of this encounter (statuses as of 02/17/2024) Resolved Problems Problem Noted Date Diagnosed Date [...] as of this encounter (statuses as of 02/17/2024) Immunizations Name Administration Dates Next Due COVID-19 [...] encounter Miscellaneous Notes * Telephone Encounter - Ciro Loja MD - 02/17/2024 9:08 AM EDTSigned Prescriptions: Disp Refills Pantoprazole Sodium 40 MG Oral Tablet Mirtha*60 Tab*0 Sig: Take 1 Tablet by mouth in the morning. Authorizing Provider: CIRO LOJA * Telephone Encounter - Svetlana Peters LPN - 02/17/2024 9:05 AM EDTPending Prescriptions: Disp Refills Pantoprazole Sodium 40 MG Oral Tablet Mirtha*60 Tab*0 Sig: Take 1 Tablet by mouth in the morning. * Telephone Encounter - Martha Youngblood OSA - 02/17/2024 7:28 AM EDT Did you pend patient's preferred pharmacy and medication before forwarding?yes Pharmacy: [id number] - [place] Pending Prescriptions: Disp Refills Pantoprazole Sodium 40 MG Oral Tablet Del*60 Tab*0 Sig: Take 1 Tablet by mouth in the morning. Last Visit: 12/23/2023 (in office), Visit date not found (telemedicine) Next Visit: 05/16/2024 If no future appointments scheduled, and last appointment is greater than a year ago, please schedule patient for a follow-up appointment Last date the medication was ordered: [id number] Is this request for a controlled substance?No Urine Drug Screen:No results found for this or any previous visit. Patient Phone Numbers Labs: Lab Results Component Value Date/Time CREAT 0.8 01/11/2024 03:54 PM CREAT 0.9 05/18/2020 10:33 AM POTASSIUM 4.2 12/10/2023 11:44 AM POTASSIUM 4.2 08/11/2019 12:20 PM TSH 1.43 11/11/2022 09:32 AM TSH 1.94 03/10/2017 03:06 PM LDLCALC 54 04/02/2023 10:33 AM LDLCALC 55 08/11/2019 12:20 PM LDLDIRECT NOT APPLICABLE 08/11/2019 12:20 PM LDLDIRECT 95 12/11/2009 09:39 AM ALT 31 04/02/2023 10:33 AM ALT 17 08/11/2019 12:20 PM HGBA1C 5.6 03/07/2022 08:46 AM documented in this encounter Plan of Treatment Upcoming Encounters Date Type Department Care Team (Late st Contact Info) Description 03/03/2024 3:00 PM EDT Office Visit Urology Teresa Frias [address] [place] [address] Francisco Beltrán MD [address] [place] [address] 04/04/2024 3:45 PM EDT Office Visit Urology Teresa Frias [address] [place] [address] Francisco Beltrán MD [address] [place] [address] 05/16/2024 9:40 AM EDT Office Visit General Internal Medicine [place] 200 [facility] [place] [place] [address] Ciro Loja MD 200 [facility] [place] [place] [address] 06/13/2024 9:30 AM EST Imaging Radiology, [place] [address] [facility] [place] [address] 07/08/2024 9:30 AM EST Office Visit Cardiology, [facility] 132 [place] [address] Divya Haskins CRNP [address] [place] [address] 07/18/2024 10:00 AM EST Office Visit Rheumatology [place] [address] [facility] [place] [address] Jerad Connelly CRNP [address] [place] [address] [place] [address] 10/21/2024 9:30 AM EDT Imaging [facility] 132 [facility] [place] [address] 10/24/2024 10:40 AM EDT Office Visit Dermatology [facility], [place] [address] [place] [address] Jacquelin Muñoz PA-C [address] [place] [address] Health Maintenance Due Date Last Done Comments Zoster Vaccines (1 of 2) 12/22/1987 DTaP,Tdap,and Td Vaccines (1 - Tdap) 12/27/2009 12/26/2009, 12/26/2009 *ADVANCE DIRECTIVE NOT ON FILE 02/02/2022 COVID-19 Vaccine ( season) 2023 10/23/2020, 10/02/2020 [...] D LEVEL ONCE IN A LIFETIME-USE SMARTSET# [id number] Completed 07/16/2023, 05/27/2021, 05/18/2020, Additional history exists [...] Discussed due to patient's condition Care Teams Us Customs And Border Officer Relationship Specialty Start Date End Date Ciro Loja MD 200 [facility] [place] [place] [address] PCP - General Internal Medicine 09/20/10 documented as of this encounter
--- OUTSIDE RECORDS SUMMARY | 2024-04-08 06:40 | External Medical Summary ---
Author Name Unknown Address Unknown Organization K01:[facility] [place] - [address] [facility] [address] [place] [address] Laboratory Report Ordering Provider Test Date Status PURVI WARD 02/22/2024 09:16:45 Final Observation Date Value Abnormality Reference (Units ) Status Iron 02/22/2024 09:16:45 51 45-176 (ug /dL) Final Iron-binding capacity 02/22/2024 09:16:45 295 250-425 (ug/dL) Final Transferrin Sat % 02/22/2024 09:16:45 17 15 -55 (%) Final Performing Location [facility] - [address] [place] [address]
--- OUTSIDE RECORDS SUMMARY | 2024-04-08 06:40 | External Medical Summary | Summary of Care ---
Author Name Unknown Organization [facility] Address [address] [place] [address] Phone [phone] Care Team Providers Care Curb Setter Name Role Phone Ciro Zayas MD Primary Care Provider + Reason for Visit * Reason Comments Outpatient Testing Encounter Details Date Type Department Care Team (Late st Contact Info) Description 02/22/2024 9:20 AM EDT Laboratory Laboratory [facility] [address] [place] [address] [facility] [address] [place] [address] Iron deficiency anemia due to chronic blood loss Allergies No known active allergiesdocumented as of this encounter (statuses as of 02/22/2024) Medications Medication Sig Dispensed Refills Start Date [...] as of this encounter (statuses as of 02/22/2024) Active Problems Problem Noted Date Diagnosed Date [...] -19) 02/26/2022 Senile osteoporosis 12/24/2018 Atherosclerosis of platinum co ronary artery of platinum heart without angina pectoris 05/19/2018 History of [...] as of this encounter (statuses as of 02/22/2024) Resolved Problems Problem Noted Date Diagnosed Date [...] as of this encounter (statuses as of 02/22/2024) Immunizations Name Administration Dates Next Due COVID-19 [...] [address] [place] [address] Francisco Beltrán MD [address] [place] [address] 04/04/2024 3:45 PM EDT Office Visit Urology Teresa Frias [address] [place] [address] Francisco Beltrán MD [address] [place] [address] 05/16/2024 9:40 AM EDT Office Visit General Internal Medicine [facility] 200 [facility] [place] [address] Ciro Zayas MD 200 [facility] [place] [address] 06/13/2024 9:30 AM EST Imaging Radiology, [place] [address] [facility] [place], [place] [address] 07/08/2024 9:30 AM EST Office Visit Cardiology, [facility] [address] Divya Haskins CRNP [address] [place] [address] [place] [address] 07/18/2024 10:00 AM EST Office Visit Rheumatology [facility] [address] [facility] [place], [place] [address] Jerad Connelly CRNP [address] [place] [address] [place], [place] [address] 10/21/2024 9:30 AM EDT Imaging Vascular Lab, [facility] [address] [facility] [place] [address] 10/24/2024 10:40 AM EDT Office Visit Dermatology [facility], [place] [address] [place] [address] Jacquelin Muñoz PA-C [address] [facility] [place] [address] Pending Results Name Type Priority Associated Diagnoses Date /Time IRON SCREEN, INCLUDING TIBC Lab Routine Iron deficiency anemia due to chronic blood loss 02/22/2024 9:16 AM EDT FERRITIN Lab Routine Iron deficiency anemia due to chronic blood loss 02/22/2024 9:16 AM EDT Health Maintenance Due Date Last [...] D LEVEL ONCE IN A LIFETIME-USE SMARTSET# [id number] Completed 07/16/2023, 05/27/2021, 05/18/2020, Additional history exists [...] Not on filedocumented as of this encounter Procedures Procedure Name Priority Date/Time Associated Diagnosis Comments DIFFERENTIAL, AUTOMATED Routine 02/22/2024 9:16 AM EDT Iron deficiency anemia due to chronic blood loss CBC Routine 02/22/2024 9:16 AM EDT Iron deficiency anemia due to chronic blood loss CBC Routine 02/22/2024 9:16 AM EDT Iron deficiency anemia due to chronic blood loss documented in this encounter Results * (ABNORMAL) DIFFERENTIAL, AUTOMATED (02/22/2024 9:16 AM EDT) WBC 8.77 4.00 - 10.80 K/uL 02/22/2024 9:21 AM EDT [facility] [place] 56[facility]02 Neutrophils % 59.4 40.0 - 75.0 % 02/22/2024 9:21 AM EDT [facility] 56-02 Lymphocytes % 22.3 18.0 - 42.0 % 02/22/2024 9:21 AM EDT [facility] 56-02 Monocytes % 12.2(H) 1.0 - 11.0 % 02/22/2024 9:21 AM EDT [facility] 56-02 Eosinophils % 5.4 0.0 - 6.0 % 02/22/2024 9:21 AM EDT [facility] 56-02 Basophils % 0.7 0.0 - 2.0 % 02/22/2024 9:21 AM EDT [facility] 56-02 Absolute Neutrophils 5.21 1.80 - 7.70 K/uL 02/22/2024 9:21 AM EDT [facility] 56-02 Absolute Lymphocytes 1.96 1.00 - 4.80 K/ul 02/22/2024 9:21 AM EDT [facility] 56-02 Absolute Monocytes 1.07 0.00 - 1.10 K/uL 02/22/2024 9:21 AM EDT [facility] 56-02 Absolute Eosinophils 0.47 0.00 - 0.70 K/uL 02/22/2024 9:21 AM EDT [facility] 56-02 Absolute Basophils 0.06 0.00 - 0.20 K/uL 02/22/2024 9:21 AM EDT [facility] 56-02 Blood Venous blood specimen / Unknown Venipuncture / Unknown 02/22/2024 9:16 AM EDT 02/22/2024 9:16 AM EDT Ciro Zayas MD LAB BLOOD ORDERA BLES [address] [place], [place] [id number] * (ABNORMAL) CBC (02/22/2024 9:16 AM EDT) [facility] WBC 8.77 4.00 - 10.80 K/uL 02/22/2024 9:21 AM EDT [address] RBC 4.48 4.50 - 5.25 M/uL 02/22/2024 9:21 AM EDT [place] [address] HGB 13.7(L) 14.0 - 16.8 g/dL 02/22/2024 9:21 [address] EDT [address] HCT 40.8 40.0 - 48.4 % 02/22/2024 9:21 AM EDT [address] MCV 91.1 82.0 - 99.5 fL 02/22/2024 9:21 AM EDT [address] MCH 30.6 27.0 - 34.0 pg 02/22/2024 9:21 AM EDT [address] MCHC 33.6 32.0 - 36.0 g/dL 02/22/2024 9:21 AM EDT [address] RDW 13.2 11.5 - 15.5 % 02/22/2024 9:21 [address] EDT [address] PLT 201 140 - 400 K/uL 02/22/2024 9:21 AM EDT [address] MPV 9.0 6.6 - 11.1 fL 02/22/2024 9:21 AM EDT [facility] 56 Blood Venous blood specimen / Unknown Venipuncture / Unknown 02/22/2024 9:16 AM EDT 02/22/2024 9:16 AM EDT Ciro Zayas MD LAB BLOOD ORDERA BLES [facility] 56-02 200 [place] [address] documented in this encounter Visit Diagnoses Diagnosis Iron deficiency anemia due to chronic blood loss Iron deficiency anemia secondary to blood loss (chronic) documented in this encounter Advance Directives * Full Code (Latest Code Status on File) Date Activated Date Inactivated Comments 02/15/2024 8:20 AM 02/15/2024 3:47 PM This order r eflects the patients wishes and were consensually agreed upon. Question Answer Comments Discussion of Advance Direct lindsay occurred with: Not Discussed due to patient's condition Care Teams Curb Setter Relationship Specialty Start Date End Date Ciro Zayas MD [address] [facility] [address] PCP - General Internal Medicine 09/20/10 documented as of this encounter
--- OUTSIDE RECORDS SUMMARY | 2024-04-08 06:40 | External Medical Summary | Summary of Care ---
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) Allergies No known active allergiesdocumented as of this encounter (statuses as of 03/03/2024) Medications Medication Sig Dispensed Refills Start Date [...] as of this encounter (statuses as of 03/03/2024) Active Problems Problem Noted Date Diagnosed Date [...] -19) 02/26/2022 Senile osteoporosis 12/24/2018 Atherosclerosis of [place] co ronary artery of [place] heart without angina pectoris 05/19/2018 History of [...] as of this encounter (statuses as of 03/03/2024) Resolved Problems Problem Noted Date Diagnosed Date Resolved Date COPD, group C, by GOLD 2017 classification 01/27/2022 11/26/2022 Overview: Per COPD GOLD Classification Pulmonary embolus 07/26/2021 02/26/2022 Moderate protein-calorie malnutrition 07/26/2021 10/15/2023 COPD, group A, by GOLD 2017 classification 02/27/2020 01/30/2022 Overview: Per COPD GOLD Classification Senile osteoporosis 12/31/2016 08/11/19 20 History of basal cell carcinoma 03/23/2015 06/02/2017 Overview: right pre-auricular ear / Gout 05/31/2013 03/10/2018 Alcoholism in remission 11/08/201202/17 [...] as of this encounter (statuses as of 03/03/2024) Immunizations Name Administration Dates Next Due COVID-19 [...] Beltrán MD - 03/03/2024 3:41 PM EDT [id number] PCP: [place] [address] [phone] Juan Vazquez is a 88 year old [...] Past Hx Father alcoholic Heart Disorder Father [place] at 61 No Past Hx Brother Past Surgical History: Procedure Laterality Date COLONOSCOPY, DIAGNOSTIC (RECTUM) 06/19/2021 normal bx / COLONOSCOPY FLEXIBLE PROXIMAL DIAGNOSTIC performed by Shelly Phillip MD at ENDOSCOPY [facility] COLORECTAL CANCER SCREEN; NOT AT RISK 04/17/09 done diverticulosis,a single non-bleeding colonic angioectasia CYSTOSCOPY/TREAT MED BLADDER TUMOR N/A 02/15/2024 CYSTOURETHROSCOPY WITH FULGURATION MEDIUM BLADDER TUMOR performed by Sabas Merchant Jr., MD at OR [facility] DENTAL SURGERY PROCEDURE NEC 07/20/2013 EGD, FLEXIBLE, DIAGNOSTIC 06/19/2021 duodenal diverticulum,gastric heterotopia, reflux esophagitis / ESOPHAGOGASTRODUODENOSCOPY (EGD), FLEXIBLE, TRANSORAL, DIAGNOSTIC performed by Shelly Phillip MD at ENDOSCOPY [facility] INFORMATION 11/2023 EGD & Colonoscopy. INFORMATION Heart cath. 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 Anxiety and depression Beta-blockers contraindicated Bradycardia 12/01/2008 COPD (chronic obstructive pulmonary disease) ([facility]) COPD, mild ([facility]) 04/05/2012 Coronary atherosclerosis 10/06/2008 Dyslipidemia, goal LDL below 70 10/02/2011 Gout 05/31/2013 History of 2019 novel coronavirus disease (COVID-19) 02/26/2022 History of alcohol dependence ([facility]) 03/05/2017 History of cigarette smoking 02/26/2022 History of pulmonary embolism 02/26/2022 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 PAD (peripheral artery disease) ([facility]) 09/23/2022 Personal history of alcoholism ([facility]) sober since 10/1978 Patient Active Problem List Diagnosis Bradycardia Impotence of organic origin Restless leg syndrome Beta-blockers contraindicated YURY inhibitor intolerance Dyslipidemia, goal LDL below 70 History of alcohol dependence ([facility]) History of nonmelanoma skin cancer Varicose vein of leg History of gout Atherosclerosis of [place] coronary artery of [place] heart without angina pectoris Senile osteoporosis History of pulmonary embolism History of cigarette smoking History of 2019 novel coronavirus disease (COVID-19) PVD (peripheral vascular disease) ([facility]) AAA (abdominal aortic aneurysm) ([facility]) COPD, group D, by GOLD 2017 classification ([facility]) Frequent PVCs NSVT (nonsustained ventricular tachycardia) ([facility]) Aortic ectasia, abdominal ([facility]) Abnormal CT scan, bladder Bladder mass Constitutional: [...] Patient wishes to have intervention done at [facility] if at all possible. He reassures me regarding his healthy vascular and cardiac status. Will defer this decision to the anesthesia service. If he is cleared for TURBT and intravesical mitomycin at [facility], we will proceed there. Otherwise, will plan on repeat resection at [facility]. Risks and benefits reviewed. The possibility [...] the office today documented in this encounter Plan of Treatment Upcoming Encounters Date Type Department Care Team (Late st Contact Info) Description 04/04/2024 3:45 PM EDT Office Visit Urology Teresa Frias [address] [facility] [address] [place] [address] Francisco Beltrán MD [address] [address] 05/16/2024 9:40 AM EDT Office Visit General Internal Medicine [facility] [address] [facility] [place] [address] Ciro Zayas MD [address] [facility] [place] [address] 06/13/2024 9:30 AM EST Imaging Radiology, [address] [place] [address] 07/08/2024 9:30 AM EST Office Visit Cardiology, [facility] [address] [place] [address] Divya Haskins CRNP [address] [facility] [place] [address] 07/18/2024 10:00 AM EST Office Visit Rheumatology [address] [place] [address] Jerad Connelly CRNP [address] [facility] [place] [address] 10/21/2024 9:30 AM EDT Imaging Vascular Lab, [facility] 2nd Floor, [place] [address] [place] [address] 10/24/2024 10:40 AM EDT Office Visit Dermat[facility] [place] [address] [facility] [address] Jacquelin Muñoz PA-C [address] [facility] [place] [address] Scheduled Procedures Name Priority Associated Diagnoses Date/Ti [...] D LEVEL ONCE IN A LIFETIME-USE SMARTSET# [id number] Completed 07/16/2023, 05/27/2021, 05/18/2020, Additional history exists [...] neoplasm of lateral wall of urinary bladder documented in this encounter Advance Directives * Full Code (Latest Code Status on File) Date Activated Date Inactivated Comments 02/15/2024 8:20 AM 02/15/2024 3:47 PM This order r eflects the patients wishes and were consensually agreed upon. Question Answer Comments Discussion of Advance Direct lindsay occurred with: Not Discussed due to patient's condition Care Teams Protective Signal Repairer Relationship Specialty Start Date End Date Ciro Zayas MD [address] [facility] [place], [place] [address] PCP - General Internal Medicine 09/20/10 documented as of this encounter
--- OUTSIDE RECORDS SUMMARY | 2024-04-08 06:40 | External Medical Summary | Summary of Care ---
Author Name Unknown Organization [facility] Address [address] [facility] [place] [address] Phone [phone] Care Team Providers Care Atm Mechanic Name Role Phone Ciro Zayas MD Primary Care Provider + Reason for Visit * Reason Onset Date Comments Surgery 03/04/2024 TURBT at [facility] Encounter Details Date Type Department Care Team (Late st Contact Info) Description 03/04/2024 Telephone Urology Teresa Frias [address] [address] [place] [address] Francisco Beltrán MD [address] [place] [address] Surgery (TURBT at [facility]... Allergies No known active allergiesdocumented [...] -19) 02/26/2022 Senile osteoporosis 12/24/2018 Atherosclerosis of [place] co ronary artery of [place] heart without angina pectoris 05/19/2018 History of [...] to have TURBT. [facility]. Please review chart and advise if able to offer or does patient need to be done at [facility]. documented in this encounter Plan of Treatment Upcoming Encounters Date Type Department Care Team (Late st Contact Info) Description 04/04/2024 3:45 PM EDT Office Visit Urology Teresa Frias [address] [place] [address] [place] [address] Francisco Beltrán MD [address] [place] [address] [address] 05/16/2024 9:40 AM EDT Office Visit General Internal Medicine [facility] [address] [facility] [place] [address] Ciro Zayas MD [address] [facility] [place] [address] 06/13/2024 9:30 AM EST Imaging Radiology, [facility] [address] [facility] [place] [address] 07/08/2024 9:30 AM EST Office Visit Cardiology, [facility] [address] [place] [address] Divya Haskins CRNP [address] [place] [address] [place] [address] 07/18/2024 10:00 AM EST Office Visit Rheumatology [facility] [address] [facility] [place], [place] [address] Jer[place] Connelly CRNP [address] [facility] [place] [address] 10/21/2024 9:30 AM EDT Imaging Vascular Lab, [facility] 2nd [facility] [place] [address] [facility] [place] [address] 10/24/2024 10:40 AM EDT Office Visit Dermatology [facility] [place] [address] [place] [address] Jacquelin Muñoz PA-C [address] [facility] [place] [address] Scheduled Procedures Name Priority Associated Diagnoses Date/Ti [...] D LEVEL ONCE IN A LIFETIME-USE SMARTSET# [id number] Completed 07/16/2023, 05/27/2021, 05/18/2020, Additional history exists [...] Discussed due to patient's condition Care Teams Atm Mechanic Relationship Specialty Start Date End Date Ciro Zayas MD [address] [facility] [place] [address] PCP - General Internal Medicine 09/20/10 documented as of this encounter
--- OUTSIDE RECORDS SUMMARY | 2024-04-08 06:40 | External Medical Summary | Summary of Care ---
Author Name Unknown Organization [facility] Address [address] [place] [address] Phone [phone] Care Team Providers Care Operations Support Coordinator Name Role Phone Ciro Zayas MD Primary Care Provider + Reason for Visit * Auth/Cert Specialty Diagnoses / Procedures Referred By Miguel t Referred To Contact Diagnoses Abnormal CT scan, bladder Bladder mass Abnormal CT scan, bladder [R93.41] Bladder mass [N32.89] Procedures CYSTOSCOPY/TREAT MED BLADDER TUMOR BLADDER INSTILLATION, ANTICARCINOGENIC CYSTOURETHROSCOPY WITH FULGURATION MEDIUM BLADDER TUMOR 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 Sabas Merchant Jr., MD [address] [address] Or [facility] [address] [facility] [place] [address] Referral ID Status Reason Start Date Expiration Date Visits Re quested Visits Authorized [id number] Encounter Details Date Type Department Care Team (Latest Contact Info) Description 02/15/2024 6:22 AM EDT - 02/15/2024 11:35 AM EDT Hospital Encounter OR [facility], Operating Room, Main Hospital - 4th Floor [address] [place] [address] Sabas Merchant Jr., MD [address] [address] Discharge Disposition: Home - Self Care Allergies No known active allergiesdocumented as of this encounter (statuses as of 02/15/2024) Medications Medication Sig Dispensed Refills Start Date [...] Additional Information Patient not taking.Reported on 01/05/2024 Pantoprazole Sodium 40 MG Oral Tablet Delayed Release (Protonix) Take 1 Tablet by mouth in the morning. 60 Tablet 01/01/2024 Active Finasteride 5 MG Oral Tablet (Proscar) Take [...] to 10 doses. 10 Tablet 02/15/2024 Active traZODone HCl 50 MG Oral Tablet (Desyrel) Take 1 Tablet by mouth at bedtime. 90 Tablet 3 02/12/2023 02/08/20 24 Discontinu ed(Refill) documented as of this encounter (statuses as of 02/15/2024) Active Problems Problem Noted Date Diagnosed Date [...] -19) 02/26/2022 Senile osteoporosis 12/24/2018 Atherosclerosis of rampart co ronary artery of rampart heart without angina pectoris 05/19/2018 History of [...] as of this encounter (statuses as of 02/15/2024) Resolved Problems Problem Noted Date Diagnosed Date [...] atherosclerosis 10/06/2008 Overview: No obstructive lesions in 2009 - had coronary cath documented as of this encounter (statuses as of 02/15/2024) Immunizations Name Administration Dates Next Due COVID-19 [...] Sign Reading Time Taken Comments Blood Pressure 177/77 02/15/2024 11:19 AM EDT Pulse 65 02/15/2024 11:19 AM EDT Temperature 36.3 C (97.3 F) 02/15/2024 11:19 AM E DT Respiratory Rate 16 02/15/2024 11:19 AM EDT Oxygen Saturation 96% 02/15/2024 11:19 AM EDT Inhaled Oxygen Concentration - - Weight 59 kg (130 lb) 02/15/2024 6:46 AM EDT Height 172.7 cm (5' 8") 02/15/2024 6:46 AM EDT Body Mass Index 19.77 02/15/2024 6:46 AM EDT documented in this encounter Discharge Instructions * Discharge Instr - AVS* Mayur Quintero, Sabas Doherty MD - 02/15/2024 8:15 AM EDT Discharge Date: 02/15/2024 Check your Patient Education Brochure for further information. If you have any further questions call your physician at [phone]. The information below provides you with the instructions and the list of medications you need to betaking following discharge from the hospital. If you have any questions, please ask before leaving.Please carry this letter with you when you see your doctor in the clinic. If you have questions, you can reach us at the numbers above. Diet: Start with clear liquids (jello, tea, apple juice), avoid dairy products (milk, cheese, pudding, ice cream) and fried, greasy foods. Progress to prescribed diet as tolerated. If nausea should occur, have clear liquids only until soft foods can be tolerated. Activity: A responsible adult must be with the patient for 24 hours after surgery. Rest today and tomorrow, and then increase activity as tolerated. DO NOT drive, operate any appliances and/or machinery or sign legal documents for 24 hours. Control of Pain: Prescription: percocet Warnings: Call your surgeon promptly in case of: A. Excessive bleeding B. Fever greater than 101 degrees F (38.3 degrees centigrade) C. Persistent nausea and vomiting D. Redness, swelling or pus-like drainage E. Pain that is not relieved by the medicine you were told to take F. Other light activity 2 weeks Special Instructions: A. Dressing change: Date you may return to work or school: N/A Follow-up with your urologist in 1 week(s). documented in this encounter Progress Notes * Sabas Merchant Jr., MD - 02/15/2024 8:15 AM EDT [address] [address] OUTPATIENT SURGERY DISCHARGE SUMMARY NOTE Name: Juan Vazquez Location: [facility] Date: 02/15/2024 Time: 8:15 AM Surgery Date: 02/15/2024 Procedure: CYSTOURETHROSCOPY WITH FULGURATION MEDIUM BLADDER TUMOR, CANCELLED PROCEDURE N/A N/A Surgeon: Sabas Merchant Jr., MD Discharge Diagnosis: bladder tumor After examination of this patient, I have determined he is ready for discharge to home when the patient meets criteria. Discharge instructions were given to the patient. documented in this encounter H&P Notes * Sabas Merchant Jr., MD - 02/15/2024 7:11 AM EDT H&P 02/15/24 [id number] PCP: CIRO ZAYAS [place], [place] [id number] Juan Vazquez is a 88 year old male, who presents of gross hematuria with a possible bladder mass. Patient's CT imaging and past notes are personally reviewed CT with patient demonstrating a lesionin the right anterior bladder. He notes he was admitted for anemia, blood in stool. He notes a history of tobacco use. Patient notes he has ongoing difficulties with anxiety. Incidentally found bladder lesion: Presented to Urology December 2023. 65 pack years cigarette history. BPH: Patient is being seen for BPH today. He has had the following symptoms: slow stream and nocturia x 2 . Severity is moderate. He has tried no medication. He has previously had office cystoscopy done. Problem has been present for years. Problem is about the same. Creatinine Results: Lab Results Component Value Date/Time CREATININE - [facility] 1.0 12/10/2023 11:44 AM CREATININE - [facility] 0.9 04/02/2023 10:33 AM CREATININE - [facility] 1.0 11/11/2022 09:32 AM CREATININE - [facility] 0.9 05/18/2020 10:33 AM CREATININE - [facility] 1.0 02/01/2020 10:04 AM CREATININE - [facility] 0.8 08/11/2019 12:20 PM PSA Results: Lab Results Component Value Date/Time PSA - [facility] 0.96 10/01/2010 08:53 AM PSA - [facility] 0.89 10/13/2008 12:00 PM PSA SCREENING 1.15 08/31/2015 10:24 AM PSA SCREENING 1.06 07/26/2009 09:07 AM Current Medications Current Outpatient Medications Medication Sig Dispense Refill [...] as needed for Wheezing. 18 g 1 traZODone HCl 50 MG Oral Tablet (Desyrel) Take 1 Tablet by mouth at bedtime. 90 Tablet 3 Diclofenac Sodium 1 % External Gel (Voltaren) Apply 2 gm to the hands bilaterally every 6 hours as needed for pain (Patient not taking: Reported on 12/23/2023) Atorvastatin Calcium 40 MG Oral Tablet (Lipitor) TAKE 1 TABLET BY MOUTH EVERY DAY 90 Tablet 3 Cyclobenzaprine HCl 5 MG Oral Tablet (Flexeril) TAKE 1 TABLET BY MOUTH EVERY 8 HOURS NEEDED FOR MUSCLE SPASMS (Patient not taking: Reported on 12/23/2023) Sertraline HCl 50 MG Oral Tablet (Zoloft) 0.5 pill by mouth once a day for 2 weeks then 1 pill daily 30 Tablet 1 Ferrous Sulfate 325 (65 Fe) MG Oral Tablet (Feosol) Take 1 Tablet by mouth every other day. busPIRone HCl 10 MG Oral Tablet (Buspar) TAKE 1 TABLET BY MOUTH EVERY MORNING AND TAKE ONE TABLET BY MOUTH AT BEDTIME (Patient not taking: Reported on 01/05/2024) 60 Tablet 0 Pantoprazole Sodium 40 MG Oral Tablet Delayed Release (Protonix) Take 1 Tablet by mouth in the morning. 60 Tablet 0 LORazepam 0.5 MG Oral Tablet (Ativan) Take 1 Tablet by mouth every 8 hours as needed for Anxiety. 21 Tablet 0 No current facility-administered medications for this visit. Allergies Review of patient's allergies indicates: No Known Allergies Social History: Social History - Alcohol and Tobacco Use Social History Tobacco Use Smoking status: Former Current packs/day: 0.00 Average packs/day: 1 pack/day for 50.0 years (50.0 ttl pk-yrs) Types: Cigarettes Start date: 07/12/1971 Quit date: 07/12/2021 Years since quittin.5 Smokeless tobacco: Never Substance Use Topics Alcohol use: No Comment: no drinks since 1978 Vaping History Vaping/E-Cigarette Use Vaping/E-Cigarette Use Never User Vaping History Vaping/E-Cigarette Substances Vaping History Vaping/E-Cigarette Devices Past Surgical History Past Surgical History: Procedure Laterality Date COLONOSCOPY, DIAGNOSTIC (RECTUM) 06/19/2021 normal bx / COLONOSCOPY FLEXIBLE PROXIMAL DIAGNOSTIC performed by Shelly Phillip MD at [facility] COLORECTAL CANCER SCREEN; NOT AT RISK 04/17/09 done diverticulosis,a single non-bleeding colonic angioectasia DENTAL SURGERY PROCEDURE NEC 07/20/2013 EGD, FLEXIBLE, DIAGNOSTIC 06/19/2021 duodenal diverticulum,gastric heterotopia, reflux esophagitis / ESOPHAGOGASTRODUODENOSCOPY (EGD), FLEXIBLE, TRANSORAL, DIAGNOSTIC performed by Shelly Phillip MD at [facility] INSERTION OF LENS PROSTHESIS 07/20/2001 Past Medical History Past Medical History: Diagnosis Date YURY inhibitor intolerance low blood pressure Acute inferior myocardial infarction ([facility]) 2002 Beta-blockers contraindicated Bradycardia 12/01/2008 COPD (chronic obstructive pulmonary disease) ([facility]) COPD, mild ([facility]) 04/05/2012 Coronary atherosclerosis 10/06/2008 Dyslipidemia, goal LDL below 70 10/02/2011 Gout 05/31/2013 History of 2019 novel coronavirus disease (COVID-19) 02/26/2022 History of alcohol dependence ([facility]) 03/05/2017 History of cigarette smoking 02/26/2022 History of pulmonary embolism 02/26/2022 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 PAD (peripheral artery disease) ([facility]) 09/23/2022 Personal history of alcoholism ([facility]) sober since 10/1978 Problem List Patient Active Problem List Diagnosis Bradycardia Impotence of organic origin Restless leg syndrome Beta-blockers contraindicated YURY inhibitor intolerance Dyslipidemia, goal LDL below 70 History of alcohol dependence ([facility]) History of nonmelanoma skin cancer Varicose vein of leg History of gout Atherosclerosis of rampart coronary artery of rampart heart without angina pectoris Senile osteoporosis History of pulmonary embolism History of cigarette smoking History of 2019 novel coronavirus disease (COVID-19) PVD (peripheral vascular disease) ([facility]) AAA (abdominal aortic aneurysm) ([facility]) COPD, group D, by GOLD 2017 classification ([facility]) Frequent PVCs NSVT (nonsustained ventricular tachycardia) ([facility]) Aortic ectasia, abdominal ([facility]) Constitutional: (-) fever and (-) chills ENT: (-) stridor Male : see HPI Musculoskeletal: (+) joint pain Neurology: (-) negative: no focal neurologic defect Psychiatry: (+) depression Physical Exam Nursing note reviewed. Exam conducted with a cigarette lighter repairer present. Constitutional: General: He is not in acute [...] soft. Tenderness: There is no abdominal tenderness. Genitourinary: Penis: Normal. Musculoskeletal: Cervical back: Normal range of motion and neck supple. Lymphadenopathy: Cervical: No cervical adenopathy. Skin: Coloration: Skin is not cyanotic or pale. Neurological: Mental Status: He is alert and oriented to person, place, and time. Psychiatric: Attention and Perception: Attention normal. Mood and Affect: Mood and affect normal. Cystoscopy Procedure Note: Patient was properly identified and appropriate consent was confirmed. Risks and benefits of the procedure were reviewed and the patient was prepped and draped in the standard fashion for the procedure. A well lubricated 16 [place] flexible cystoscope was introduced through the meatus into the urethra. Urethra demonstrated no abnormalities. Prostatic urethra demonstrated moderate to severe hypertrophy, no significant intravesical extension with inflammatory changes . Bladder neck was visualized and bladder was entered. Sterile saline irrigation was used to distend the bladder which was noted to have papillary tumors and erythematous mucosa at the right anterior bladder and bladder neck, consistent with low-grade urothelial malignancy with grade 3 trabeculation with cellules. Bladder was completely inspected including retroflexion of the scope. Ureteral orifices were noted to be in the normal anatomic position bilaterally. After this was completed the cystoscope was removed. Patient tolerated the procedure well without complications or difficulties. Rubber Mill Tender was present for entire pro cedure. Perioperative Bactrim was provided. Impression/Plan: 88-year-old male with new diagnosis of urothelial malignancy of the bladder. Findings reviewed with the patient. Will obtain a CT urogram for more accurate staging. Findings and pathophysiology of urothelial malignancy reviewed. Will proceed with initial TURBT and instillation of mitomycin-C. Seen the patient's cardiac history proceeded [facility] for intervention. Risks and benefits, expected convalescence are reviewed. Informed consent obtained. Patient is anxious regarding his diagnosis. Will see at the time of resection. Patient vocalizes good understanding of the treatment plan. Above content is personally reviewed. TURBT, possible instillation of mitomycin-C. 3-5 days trial of void. Three week postop check. 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 * Jennifer Jha RN - 01/25/2024 2:23 PM EDT Patient identified by: name/birthdate Person taught: Patient Optime case procedure confirmed with surgical consent Laterality confirmed as N/a Surgery date at time of Pre-Surgery Center Encounter: 02/15/2024. What procedure is patient having? Transurethral resection of bladder tumor, possible instillation of mitomycin c In an emergency, is patient willing to accept blood products or blood transfusion? Unknown. Do you need to place a blood bank order? No Anesthesia consent pool notified? N/A Anesthesia evaluation requested per case documentation? No Preop Evaluation Requested? Yes, follow-up will be documented on Anesthesia note Pt's 01/05/2024 Cardiology clearance note is in Epic. PATIENT EDUCATION SCREENING Person taught: Patient Motivation Level: Asks Questions and Eager to Learn Language Barrier: No Physical Barrier: N/A METHOD: Lecture-telephone interview Patient Preferred Learning Methods: Lecture-Telephone interview Health History interview completed, questions answered, and the following patient instructions provided via telephone interview: Preoperative bathing instructions General preoperative instructions Medication instructions NPO instructions - If your normal morning routine take Protonix and Zoloft the morning of surgery. If you take metformin, hold it the evening before surgery as well. No tobacco products after midnight. Pt instructions to stop his multivitamin 10 days prior. OUTCOME: State / Describe / Explain and Needs Reinforcement documented in this encounter OR Notes * OR Surgeon - Sabas Merchant Jr., MD - 02/15/2024 8:09 AM EDT [facility] [address] OPERATIVE REPORT Name: Juan Vazquez Date: 02/15/2024 Time: 8:08 AM Location: [facility] Service: Urology Date of Operation: 02/15/2024 Pre-op Diagnosis: bladder tumor lateral wall 1.5 cm Post-op Diagnosis: same Operation: TURBT 1.5 cm Surgeon: Sabas Merchant Jr., MD Assistants: None Anesthesia: General LMA anesthesia Drains: Urinary Catheter (Grimm) Estimated Blood Loss: 5 ml. IV Fluids: 400 ml. Urine Output: N/A Specimens/Disposition: bladder tumor Apparent Intraoperative Complications: NONE Patient Condition: good Disposition: Post Anesthesia Care Unit Attestation: I performed the procedure Findings: He had a papillary appearing tumor on the anterior lateral wall of the right side of the bladder with an adjacent area of erythema potentially suspicious for high-grade tumor and resection of the tumor was completed with complete fulguration all visible tumor was removed but Mutamycin wasnot used due to possibility of high-grade tumor. Indications: This is a 88-year-old gentleman that presented with anemia found to have an abnormal lesion on CT imaging during his workup and eventually confirmed to be papillary neoplasm of the bladder during office cystoscopy now coming in for cystoscopy and Transurethral resection of bladder tumor. Upper tracts appeared normal on contrast CT imaging. The general information alternatives and risks of the procedure were explained and understood in detail. Procedure: The patient was taken to the operating room and identified and a surgical time-out was taken. He had received IV antibiotics all the appropriate equipment and personnel were available he was then put under general LMA anesthesia and put in lithotomy position prepped draped secured in standard sterile fashion. We began with cystoscopy with the visual obturator and resectoscope identifying a normal-appearing urethra mild BPH and then the bladder tumor appearing on the right side of thebladder more anteriorly along the lateral wall and another patch of erythema adjacent to it the total tumor size was about a cm and a half the erythematous area was also about a cm we did 1st a biopsy of the erythematous area with a cup biopsy and then turned to the loop and resected the rest of the tumor we did get some muscle sample it was not clear whether the tumor was higher low-grade and I have some suspicion that could be higher grade so we chose not to do a Mutamycin instillation. We did get all of the visible tumor removed there were no perforations of the bladder we had good hemostasis all of the tumor was removed and sent to the lab for pathology and the bladder then was drained with a catheter. I plan on leaving the catheter for 2 hours if it remains clear we can remove the catheter and see if he can void today. The remainder treatment plan will depend upon the surgical pathology. * Operative Report Brief - Sabas Merchant Jr., MD - 02/15/2024 8:08 AM EDT [facility] [address] OPERATIVE REPORT - BRIEF Name: Juan Vazquez Date: 02/15/2024 Time: 8:08 AM Location: OR [facility] Service: Urology Date of Operation: 02/15/2024 Pre-op Diagnosis: bladder tumor lateral wall 1.5 cm Post-op Diagnosis: same Operation: TURBT 1.5 cm Surgeon: Sabas Merchant Jr., MD Assistants: None Anesthesia: General LMA anesthesia Drains: Urinary Catheter (Grimm) Estimated Blood Loss: 5 ml. IV Fluids: 400 ml. Urine Output: N/A Specimens/Disposition: bladder tumor Apparent Intraoperative Complications: NONE Patient Condition: good Disposition: Post Anesthesia Care Unit Attestation: I performed the procedure documented in this encounter Plan of Treatment Upcoming Encounters Date Type Department Care Team (Late st Contact Info) Description 03/03/2024 3:00 PM EDT Office Visit Urology Mary Ellen AlvesTeresa [address] [place] [address] Francisco Beltrán MD [address] [address] 04/04/2024 3:45 PM EDT Office Visit Urology Mary Ellen AlvesTeresa [address] Mary Ellen Dayami [address] [address] Francisco Beltrán MD [address] [address] 05/16/2024 9:40 AM EDT Office Visit General Internal Medicine [facility] [address] [facility] [place] [address] Ciro Zayas MD [address] [facility] [place] [address] 06/13/2024 9:30 AM EST Imaging Radiology, [address] [place] [address] 07/08/2024 9:30 AM EST Office Visit Cardiology, [address] [address] Divya Haskins CRNP [address] [place] [address] [place] [address] 07/18/2024 10:00 AM EST Office Visit Rheumatology [place] [id number] [facility] [place] [address] Jerad Connelly CRNP [address] [place] [address] [place] [address] 10/21/2024 9:30 AM EDT [facility] [place] [address] 10/24/2024 10:40 AM EDT Office Visit Dermatology [facility] [address] [place] [address] Jacquelin Muñoz PA-C [address] [facility] [place] [address] Pending Results Name Type Priority Associated Diagnoses Date /Time SURGICAL PATHOLOGY Pathology Routine Abnormal CT scan, bladder Bladder mass 02/15/2024 7:52 AM EDT Scheduled Orders Name Type Priority Associated Diagnoses Orde r Schedule SURGICAL PATHOLOGY Pathology Routine Abnormal CT scan, bladder Bladder mass Release Upon Ordering for 1 Occurrences starting 02/15/2024, 1 completed Scheduled Procedures Name Priority Associated Diagnoses Date/Ti me CYSTOURETHROSCOPY WITH FULGURATION MEDIUM BLADDER TUMOR Abnormal CT scan, bladder Bladder mass 02/15/2024 6:55 AM EDT 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 Abnormal CT scan, bladder Bladder mass 02/15/2024 6:55 AM EDT Health Maintenance Due Date Last [...] D LEVEL ONCE IN A LIFETIME-USE SMARTSET# [id number] Completed 07/16/2023, 05/27/2021, 05/18/2020, Additional history exists [...] as of this encounter Visit Diagnoses Diagnosis Abnormal CT scan, bladder Nonspecific (abnormal) findings on radiological and other examination of genitourinary organs Bladder mass Other specified disorders of bladder documented in this encounter Administered Medications Inactive Administered Medications - up to 3 most recent administrations Medication Order MAR Action Action Date Dose Rate Site isolyte-S pH 7.4 infusion Intravenous, at 10 mL/hr, Plasma-LYTE 148, isolyte-S, and isolyte-S pH 7.4 are considered equivalent - including for MAR barcode scanning., CONTINUOUS, Starting on Thu02/15/24 at 0745, Until Thu02/15/24 at 1547 Continue from Pre-Op 02/15/2024 7:28 AM EDT 10 mL/hr New Bag 02/15/2024 7:13 AM EDT 10 mL/hr ondansetron (Zofran) inj 4 mg 4 mg, IV Push, Q6H PRN Nausea, Starting on Thu02/15/24 at 0856, Until Thu02/15/24 at 1547, For 1 day, Administer only during the first hour post-op in PACU., PACU oxyCODONE-acetaminophen 5-325 mg per tab (Percocet) 1 Tablet 1 Tablet, Oral, ONCE, On Thu02/15/24 at 0930, For 1 dose, Maximum of 4 grams (4000 mg) of acetaminophen per day Given 02/15/2024 9:04 AM EDT 1 Tablet oxygen GAS Inhalation, OXYGEN, First dose on Thu02/15/24 at 0930, Until Discontinued, Device/Managed by: Low Flow Device, Goal SPO2 (%): Other, Lower-limit SPO2 (%): 88, Upper-limit SPO2 (%): 92, Starting Device: Nasal Cannula, Initial Flow Rate (LPM): 6 LPM for NC; 10 LPM for NRB mask, Lowest Support: Nasal Cannula: Flow 0-6 LPM. Titrate up/down by 1 LPM., Higher Support: Non-Rebreather (NRB) Mask: Minimum of 10 LPM. Titrate to maintain bag inflation., Titration Interval: Q2 minutes and as needed., Notify Provider: Other, Notify Provider [other]: If SpO2 less than 88%, notify provider immediately, If patient is on Room Air in the PACU and SpO2 is greater than 88% but less than 92% place patient on Nasal Cannula If patient is on Room Air in the PACU and SpO2 is less than 88% place patient on NRB Mask documented in this encounter Active and Recently Administered Medications Times are shown in EDT. Scheduled Medication Order 02/13/2024 02/14/2024 02/15/2024 ceFAZolin in dextrose (Ancef) ivpb 2 g (COMPLETED) 2 g, IV Piggyback, ONCE, 1 dose, On Thu02/15/24 at 0800 0733 (Given - Provid er: Magda Anne CRNA) oxyCODONE-acetaminophen 5-325 mg per tab (Percocet) 1 Tablet (COMPLETED) 1 Tablet, Oral, ONCE, On Thu02/15/24 at 0930, For 1 dose, Maximum of 4 grams (4000 mg) of acetaminophen per day 0904 (Given - Provid er: Hung Hair RN) oxygen GAS Inhalation, OXYGEN, First dose on Thu02/15/24 at 0930, Until Discontinued, Device/Managed by: Low Flow Device, Goal SPO2 (%): Other, Lower-limit SPO2 (%): 88, Upper-limit SPO2 (%): 92, Starting Device: Nasal Cannula, Initial Flow Rate (LPM): 6 LPM for NC; 10 LPM for NRB mask, Lowest Support: Nasal Cannula: Flow 0-6 LPM. Titrate up/down by 1 LPM., Higher Support: Non-Rebreather (NRB) Mask: Minimum of 10 LPM. Titrate to maintain bag inflation., Titration Interval: Q2 minutes and as needed., Notify Provider: Other, Notify Provider [other]: If SpO2 less than 88%, notify provider immediately, If patient is on Room Air in the PACU and SpO2 is greater than 88% but less than 92% place patient on Nasal Cannula If patient is on Room Air in the PACU and SpO2 is less than 88% place patient on NRB Mask 0930 (Due) Continuous Medication Order 02/13/2024 02/14/2024 02/15/2024 isolyte-S pH 7.4 infusion Intravenous, at 10 mL/hr, Plasma-LYTE 148, isolyte-S, and isolyte-S pH 7.4 are considered equivalent - including for MAR barcode scanning., CONTINUOUS, Starting on Thu02/15/24 at 0745, Until Thu02/15/24 at 1547 0713 (New Bag - Prov ider: Keiko Hathaway RN)0728 (Continue from Pre-Op - Provider: Magda Anne CRNA)0819 (Anes Intra-Op Fluid - Provider: Magda Anne CRNA) PRN Medication Order 02/13/2024 02/14/2024 02/15/2024 ondansetron (Zofran) inj 4 mg 4 mg, IV Push, Q6H PRN Nausea, Starting on Thu02/15/24 at 0856, Until Thu02/15/24 at 1547, For 1 day, Administer only during the first hour post-op in PACU., PACU sodium chloride IR 0.9 % irrigation (CANCELED) ONCE PRN INTRA PROCEDURE, Starting on Thu02/15/24 at 0800, Until Thu02/15/24 at 0858, Intra-Op 0800 (Given - Provid er: Sabas Merchant Jr., MD - Comment: Bladder) documented in this encounter Advance Directives * Full Code (Latest Code Status on File) Date Activated Date Inactivated Comments 02/15/2024 8:20 AM 02/15/2024 3:47 PM This order r eflects the patients wishes and were consensually agreed upon. Question Answer Comments Discussion of Advance Direct lindsay occurred with: Not Discussed due to patient's condition Care Teams Operations Support Coordinator Relationship Specialty Start Date End Date Ciro Zayas MD [address] [place], [place] [address] PCP - General Internal Medicine 09/20/10 documented as of this encounter
--- OUTSIDE RECORDS SUMMARY | 2024-04-08 06:40 | External Medical Summary | Summary of Care ---
Author Name Unknown Organization [facility] Address [address] [facility] [place] [address] Phone [phone] Care Team Providers Care Crown Attacher Name Role Phone Ciro Zayas MD Primary Care Provider + Reason for Visit * Reason Onset Date Comments Surgery 03/04/2024 TURBT at [facility] Encounter Details Date Type Department Care Team (Late st Contact Info) Description 03/04/2024 Telephone Urology Teresa Frias [address] [place] [address] [place] [address] Francisco Beltrán MD [address] [place] [address] Surgery (TURBT at [facility]... Allergies No known active allergiesdocumented [...] -19) 02/26/2022 Senile osteoporosis 12/24/2018 Atherosclerosis of [place] co ronary artery of [place] heart without angina pectoris 05/19/2018 History of [...] TURBT. [facility]. Please review chart and advise if able to offer or does patient need to be done at [facility]. documented in this encounter Plan of Treatment Upcoming Encounters Date Type Department Care Team (Late st Contact Info) Description 04/04/2024 3:45 PM EDT Office Visit Urology Teresa Frias [address] [facility] 270 [place] [address] Francisco Beltrán MD 27 [place] [address] 05/16/2024 9:40 AM EDT Office Visit General Internal Medicine [facility] [address] [facility] [place] [address] Ciro Zayas MD [address] [facility] [place] [address] 06/13/2024 9:30 AM EST Imaging Radiology, [address] [place] [address] 07/08/2024 9:30 AM EST Office Visit Cardiology, [facility] [address] [place] [address] Divya Haskins CRNP [address] [place] [address] 07/18/2024 10:00 AM EST Office Visit Rheumatology [address] [place] [address] Jerad Connelly CRNP [address] [place] [address] [place] [address] 10/21/2024 9:30 AM EDT Imaging Vascular Lab, [facility] 2nd Floor, [place] [address] [facility] [place] [address] 10/24/2024 10:40 AM EDT Office Visit Dermatology [facility], [place] [address] [facility] [place] [address] Jacquelin Muñoz PA-C [address] [facility] [place] [address] Scheduled Procedures Name Priority Associated Diagnoses Date/Ti [...] D LEVEL ONCE IN A LIFETIME-USE SMARTSET# 71760 Completed 07/16/2023, 05/27/2021, 05/18/2020, Additional history exists [...] Discussed due to patient's condition Care Teams Crown Attacher Relationship Specialty Start Date End Date Ciro Zayas MD 200 [place] [address] PCP - General Internal Medicine 09/20/10 documented as of this encounter
--- OUTSIDE RECORDS SUMMARY | 2024-04-08 06:41 | External Medical Summary | Summary of Care ---
Author Name Unknown Organization [facility] Address [address] [place] [address] Phone [phone] Care Team Providers Care Deputy Chief Magistrate Name Role Phone Ciro Zayas MD Primary Care Provider + Reason for Visit * Reason Onset Date Comments FYI 02/15/2024 Nurse from same day calling to cancel TOV apt for pt, PT was able to urinate before leaving the hospital. No banks in place when discharged. Apt Cx. Encounter Details Date Type Department Care Team (Late st Contact Info) Description 02/15/2024 Telephone Access Center, [place] [address] [facility] *DO NOT REMOVE THIS DEPARTMENT* [place] [address] Services, Scheduling [address] [place] [address] FYI (Nurse from same day calling to cancel... Allergies No known active allergiesdocumented as of [...] to 10 doses. 10 Tablet 02/15/2024 Active documented as of this encounter (statuses [...] -19) 02/26/2022 Senile osteoporosis 12/24/2018 Atherosclerosis of [place] co ronary artery of [place] heart without angina pectoris 05/19/2018 History of [...] encounter Miscellaneous Notes * Telephone Encounter - Long, Caity R, ANNALEE - 02/15/2024 11:47 AM EDT Nurse from same day calling to cancel TOV apt for pt, PT was able to urinate before leaving the hospital. No banks in place when discharged. Apt Cx. documented in this encounter Plan of Treatment Upcoming Encounters Date Type Department Care Team (Late st Contact Info) Description 03/03/2024 3:00 PM EDT Office Visit UrologTeresa Medina [address] [place] [address] Francisco Beltrán MD 27 [place] [address] 04/04/2024 3:45 PM EDT Office Visit Teresa Bueno [address] [place] [address] [place] [address] Francisco Beltrán MD 27 [place] [address] 05/16/2024 9:40 AM EDT Office Visit General Internal Medicine [facility] 200 [facility] [place] [address] Ciro Zayas MD [address] [facility] [place] [address] 06/13/2024 9:30 AM EST Imaging Radiology, [facility] [address] [facility] [place] [address] 07/08/2024 9:30 AM EST Office Visit Cardiology, [facility] [address] [place] [address] Divya Haskins CRNP 400 [facility] [place] [address] 07/18/2024 10:00 AM EST Office Visit Rheumatology [facility] [address] [facility] [place] [address] Jerad Connelly CRNP [address] [facility] [place] [address] 10/21/2024 9:30 AM EDT Imaging Vascular Lab, [facility] 2nd [facility] [place] [address] [facility] [place] [address] 10/24/2024 10:40 AM EDT Office Visit Dermatology [facility] [place] [address] [place] [address] Jacquelin Muñoz PA-C [address] [facility] [place] [address] Scheduled Procedures Name Priority Associated Diagnoses Date/Ti [...] D LEVEL ONCE IN A LIFETIME-USE SMARTSET# [id number] Completed 07/16/2023, 05/27/2021, 05/18/2020, Additional history exists [...] Activated Date Inactivated Comments 02/15/2024 8:20 AM This order ref lects the patients wishes and were consensually agreed upon. Question Answer Comments Discussion of Advance Direct lindsay occurred with: Not Discussed due to patient's condition Care Teams Deputy Chief Magistrate Relationship Specialty Start Date End Date Ciro Zayas MD 200 [place] [address] PCP - General Internal Medicine 09/20/10 documented as of this encounter
--- OUTSIDE RECORDS SUMMARY | 2024-04-08 06:45 | External Medical Summary | Summary of Care ---
Author Name Unknown Organization [facility] Address [address] [place] [address] Phone [phone] Care Team Providers Care Nuclear Plant Technical Advisor Name Role Phone Ciro Zayas MD Primary Care Provider + Reason for Visit * Reason Onset Date Comments Medication Refill 02/10/2024 Encounter Details Date Type Department Care Team (Late st Contact Info) Description 02/10/2024 Refill General Internal Medicine [facility] 200 [place] [address] Ciro Zayas MD 200 [place] [address] Allergies No known active allergiesdocumented as of this encounter (statuses as of 02/11/2024) Medications Medication Sig Dispensed Refills Start Date [...] the morning. 30 Tablet 1 01/14/2024 Active traZODone HCl 50 MG Oral Tablet (Desyrel) Take 1 Tablet by mouth at bedtime. 90 Tablet 3 02/11/2024 Active traZODone HCl 50 MG Oral Tablet (Desyrel) Take 1 Tablet by mouth at bedtime. 90 Tablet 3 02/08/2024 Discontinu ed(Refill) documented as of this encounter (statuses as of 02/11/2024) Active Problems Problem Noted Date Diagnosed Date [...] -19) 02/26/2022 Senile osteoporosis 12/24/2018 Atherosclerosis of [place] co ronary artery of [place] heart without angina pectoris 05/19/2018 History of [...] as of this encounter (statuses as of 02/11/2024) Resolved Problems Problem Noted Date Diagnosed Date [...] , patient declined. Diverticulitis of colon 07/10/2009 03/0 02/2011 Overview: Have diverticular bleed in 2008 Dyslipidemia, goal LDL below 70 07/03/2009 05/27/2011 Overview: Per Lipid Taxonomy. COPD, severity to be determined 01/10/2009 04/05/2012 Skin sensation disturbance 12/01/2008 0 03/05/2017 Mixed dyslipidemia 10/06/2008 9 Overview: Per Lipid Taxonomy. Coronary atherosclerosis 10/06/2008 Overview: No obstructive lesions in 2008 - had coronary cath documented as of this encounter (statuses as of 02/11/2024) Immunizations Name Administration Dates Next Due COVID-19 [...] Miscellaneous Notes * Telephone Encounter - Ciro Zayas MD - 02/11/2024 4:12 PM EDTSigned Prescriptions: Disp Refills traZODone HCl 50 MG Oral Tablet (Desyrel) 90 Tab*3 Sig: Take 1 Tablet by mouth at bedtime. Authorizing Provider: CIRO ZAYAS * Telephone Encounter - Jovi Orellana [employer] ASSIST - 02/11/2024 4:11 PM EDT Pending Prescriptions: Disp Refills traZODone HCl 50 MG Oral Tablet (Desyrel) 90 Tab*3 Sig: Take 1 Tablet by mouth at bedtime. * Telephone Encounter - Martha Youngblood OSA - 02/10/2024 7:28 AM EDT Did you pend patient's preferred pharmacy and medication before forwarding?yes Pharmacy: [id number] [place] Pending Prescriptions: Disp Refills traZODone HCl 50 MG Oral Tablet (Desyrel) 90 Tab*3 Sig: Take 1 Tablet by mouth at bedtime. Last Visit: 12/23/2023 (in office), Visit date not found (telemedicine) Next Visit: 05/16/2024 If no future appointments scheduled, and last appointment is greater than a year ago, please schedule patient for a follow-up appointment Last date the medication was ordered: Is this request for a controlled substance?No [...] Care Team (Latest Contact Info) Description 02/15/2024 7:30 AM EDT Hospital Encounter OR [facility], Operating Room, [facility] Floor [address] [place] [address] Sabas Merchant Jr., MD [address] [place] [address] 02/15/2024 7:30 AM EDT - 02/15/2024 8:38 AM EDT Surgery OR [facility], Operating Room, [facility] Floor [address] [address] Sabas Merchant Jr., MD [address] [place] [address] CYSTOURETHROSCOPY WITH FULGURATION MEDIUM BLADDER TUMOR 02/18/2024 10:30 AM EDT Nurse [facility] [address] [place] [address] Nurse Michael Urology Ma[place] [address] [place] [address] 03/03/2024 3:00 PM EDT Office Visit Urology Teresa Frias [address] [place] [address] Francisco Beltrán MD [address] [place] [address] 04/04/2024 3:45 PM EDT Office Visit Urology Mary Ellen Alves Teresa [address] [place] [address] [place] [address] Francisco Beltrán MD [address] [place] [address] 05/16/2024 9:40 AM EDT Office Visit General Internal Medicine [facility] 200 [facility] [place] [address] Ciro Zayas MD [address] [facility] [place] [address] 06/13/2024 9:30 AM EST Imaging Radiology, [place] [address]10 [facility] [place] [address] 07/08/2024 9:30 AM EST Office Visit Cardiology, [facility] 132 [facility] [place] [address] Divya Haskins CRNP [address] [facility] [place] [address] 07/18/2024 10:00 AM EST Office Visit Rheumatology [facility] [address] [facility] [place] [address] Jerad Connelly CRNP [facility] Green [facility] [place] [address] 10/21/2024 9:30 AM EDT [facility] 132 [facility] [place] [address] 10/24/2024 10:40 AM EDT Office Visit Dermatology [facility], [address] [place] [address] Jacquelin Muñoz PA-C [address] [place] [address] Scheduled Procedures Name Priority Associated Diagnoses Date/Ti me CYSTOURETHROSCOPY WITH FULGURATION MEDIUM BLADDER TUMOR Abnormal CT scan, bladder Bladder mass 02/15/2024 7:30 AM EDT 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 Abnormal CT scan, bladder Bladder mass 02/15/2024 7:30 AM EDT Health Maintenance Due Date Last Done Comments Zoster Vaccines (1 of 2) 12/22/1987 DTaP,Tdap,and Td Vaccines (1 - Tdap) 12/27/2009 12/26/2009, 12/26/2009 *ADVANCE DIRECTIVE NOT ON FILE 02/02/2022 COVID-19 Vaccine (3 - season) 2023 10/23/2020, 10/02/2020 *BISPHONATE OR OTHER ACCEPTABLE MEDICATION NEEDED FOR OSTEOPOROSIS (REFER TO SMARTSET #1146) 12/18/2023 Influenza Vaccine (FLU shot) (#1) 2024 DXA Scan 06/10/2024 06/10/2022, 09/2019, 02/09/2018, Additional history exists O2 ASSESSMENT COMPLETED IN PAST YEAR FOR COPD 12/22/2024 12/23/2023 Depression Screening 01/27/2025 01/28/2024 Pneumococcal Vaccine: 65+ Years Completed 08/30/2014, 12/26/2009 Alpha-1 Antitrypsin Completed 08/20/2021 VITAMIN D LEVEL ONCE IN A LIFETIME-USE SMARTSET# [id number] Completed 07/16/2023, 05/27/2021, 05/18/2020, Additional history exists [...] Not on filedocumented as of this encounter Care Teams Nuclear Plant Technical Advisor Relationship Specialty Start Date End Date Ciro Zayas MD [address] [facility], [place] [id number] PCP - General Internal Medicine 09/20/10 documented as of this encounter
--- OUTSIDE RECORDS SUMMARY | 2024-04-08 06:45 | External Medical Summary | Summary of Care ---
Author Name Unknown Organization [facility] Address [address] [place] [address] Phone [phone] Care Team Providers Care Job Forwarder Name Role Phone Ciro Zayas MD Primary Care Provider + Reason for Visit * Reason Onset Date Comments Medication Refill 02/08/2024 Encounter Details Date Type Department Care Team (Late st Contact Info) Description 02/08/2024 Refill General Internal Medicine [facility] 200 [place] [address] Ciro Zayas MD 200 [place] [address] Allergies No known active allergiesdocumented as of this encounter (statuses as of 02/08/2024) Medications Medication Sig Dispensed Refills Start Date [...] mouth at bedtime. 90 Tablet 3 02/08/2024 Active traZODone HCl 50 MG Oral Tablet (Desyrel) Take 1 Tablet by mouth at bedtime. 90 Tablet 3 02/12/2023 Discontinu ed(Refill) documented as of this encounter (statuses as of 02/08/2024) Active Problems Problem Noted Date Diagnosed Date [...] -19) 02/26/2022 Senile osteoporosis 12/24/2018 Atherosclerosis of [place] co ronary artery of [place] heart without angina pectoris 05/19/2018 History of [...] as of this encounter (statuses as of 02/08/2024) Resolved Problems Problem Noted Date Diagnosed Date [...] as of this encounter (statuses as of 02/08/2024) Immunizations Name Administration Dates Next Due COVID-19 [...] Telephone Encounter - Ciro Zayas MD - 02/08/2024 1:02 PM EDTSigned Prescriptions: Disp Refills traZODone HCl 50 MG Oral Tablet (Desyrel) 90 Tab*3 Sig: Take 1 Tablet by mouth at bedtime. Authorizing Provider: CIRO ZAYAS * Telephone Encounter - Nicolasa Morgan Machinio - 02/08/2024 12:57 PM EDT Pending Prescriptions: Disp Refills traZODone HCl 50 MG Oral Tablet (Desyrel) 90 Tab*3 Sig: Take 1 Tablet by mouth at bedtime. * Telephone Encounter - Nicolasa Morgan Machinio - 02/08/2024 12:56 PM EDT Pending Prescriptions: Disp Refills traZODone HCl 50 MG Oral Tablet (Desyrel) 90 Tab*3 Sig: Take 1 Tablet by mouth at bedtime. Last Visit: 12/23/2023 (in office), Visit date not found (telemedicine) Next Visit: 05/16/2024 Last date the medication was ordered: 02/12/2023 Patient Active Problem List Diagnosis Bradycardia Impotence of organic origin Restless leg syndrome Beta-blockers contraindicated YURY inhibitor intolerance Dyslipidemia, goal LDL below 70 History of alcohol dependence ([facility]) History of nonmelanoma skin cancer Varicose vein of leg History of gout Atherosclerosis of [place] coronary artery of [place] heart without angina pectoris Senile osteoporosis History of pulmonary embolism History of cigarette smoking History of 2019 novel coronavirus disease (COVID-19) PVD (peripheral vascular disease) ([facility]) AAA (abdominal aortic aneurysm) ([facility]) COPD, group D, by GOLD 2017 classification ([facility]) Frequent PVCs NSVT (nonsustained ventricular tachycardia) ([facility]) Aortic ectasia, abdominal (HCC) Abnormal CT scan, bladder Bladder mass Labs: Lab Results Component Value Date/Time CREATININE - [facility] 0.8 01/11/2024 03:54 PM CREATININE - [facility] 0.9 05/18/2020 10:33 AM Lab Results Component Value Date/Time POTASSIUM - [facility] 4.2 12/10/2023 11:44 AM POTASSIUM - [facility] 4.2 08/11/2019 12:20 PM Lab Results Component Value Date/Time TSH - [facility] 1.43 11/11/2022 09:32 AM TSH - [facility] 1.94 03/10/2017 03:06 PM Lab Results Component Value Date/Time LDL CHOLESTEROL (CALCULATED) - [facility] 54 04/02/2023 10:33 AM LDL CHOLESTEROL (CALCULATED) - [facility] 49 11/11/2022 09:32 AM LDL CHOLESTEROL (CALCULATED) - [facility] 55 08/11/2019 12:20 PM LDL CHOLESTEROL (CALCULATED) - [facility] 56 03/10/2018 11:02 AM LDL CHOLESTEROL (DIRECT MEASURE) - [facility] NOT APPLICABLE 08/11/2019 12:20 PM LDL CHOLESTEROL (DIRECT MEASURE) - [facility] NOT APPLICABLE 03/10/2018 11:02 AM LDL CHOLESTEROL (DIRECT MEASURE) - [facility] 95 12/11/2009 09:39 AM Lab Results Component Value Date/Time ALT - [facility] 31 04/02/2023 10:33 AM ALT - [facility] 17 08/11/2019 12:20 PM Hemoglobin AIC Results: Lab Results Component Value Date/Time HEMOGLOBIN A1C - [facility] 5.6 03/07/2022 08:46 AM * Telephone Encounter - Martha Youngblood OSA - 02/08/2024 11:25 AM EDT Did you pend patient's preferred pharmacy and medication before forwarding?yes Pharmacy: [id number] Pending Prescriptions: Disp Refills traZODone HCl 50 MG Oral Tablet (Desyrel) 90 Tab*3 Sig: Take 1 Tablet by mouth at bedtime. Last Visit: 12/23/2023 (in office), Visit date not found (telemedicine) Next Visit: 05/16/2024 If no future appointments scheduled, and last appointment is greater than a year ago, please schedule patient for a follow-up appointment Last date the medication was ordered: [id number] Is this request for a controlled substance?No [...] 02/15/2024 7:30 AM EDT Hospital Encounter OR [facility], Operating Room, [facility] - 4th Floor [address] [place] [address] Sabas Merchant Jr., MD [address] [place] [address] 02/15/2024 7:30 AM EDT - 02/15/2024 8:38 AM EDT Surgery OR [facility], Operating Room, [facility] - 4th Floor 400 [place] [address] Sabas Merchant Jr., MD [address] [place] [address] CYSTOURETHROSCOPY WITH FULGURATION MEDIUM BLADDER TUMOR 02/18/2024 10:30 AM EDT Nurse Only Urology, [facility] [address] [place] [address] Michael Nurse Urology Mauro [address] [place] [address] 03/03/2024 3:00 PM EDT Office Visit Urology Mary Ellen AlvesTeresa [address] [place] [address] [place] [address] Francisco Beltrán MD 27 [place] [address] 04/04/2024 3:45 PM EDT Office Visit Urology Mary Ellen AlvesTeresa [address] [place] [address] [place] [address] Francisco Beltrán MD [address] [place] [address] 05/16/2024 9:40 AM EDT Office Visit General Internal Medicine [facility] 200 [facility] [place] [address] Ciro Zayas MD 200 [facility] [place] [address] 06/13/2024 9:30 AM EST Imaging Radiology, [address] [place] [address] 07/08/2024 9:30 AM EST [facility] 132 [facility] [place] [address] Divya Haskins CRNP 400 [facility] [place] [address] 07/18/2024 10:00 AM EST Office Visit Rheumatology [facility] [address] [facility] [address] [place], [place] [address] Jerad Connelly CRNP [address] [facility] [place] [address] 10/21/2024 9:30 AM EDT Imaging Vascular Lab, [facility] 2nd [facility] [place] [address] [facility] [place] [address] 10/24/2024 10:40 AM EDT Office Visit Dermatology [facility] [place] [address] [facility] [address] Jacquelin Muñoz PA-C [address] [facility] [place] [address] Scheduled Procedures Name Priority Associated Diagnoses Date/Ti [...] NOT ON FILE 02/02/2022 COVID-19 Vaccine (3 season) 2023 10/23/2020, 10/02/2020 *BISPHONATE OR OTHER ACCEPTABLE MEDICATION NEEDED FOR OSTEOPOROSIS (REFER TO SMARTSET #1146) 12/18/2023 Influenza Vaccine (FLU shot) (#1) 2024 DXA Scan 06/10/2024 06/10/2022, 0809/2019, 02/09/2018, Additional history exists O2 ASSESSMENT COMPLETED IN PAST YEAR FOR COPD 12/22/2024 12/23/2023 Depression Screening 01/27/2025 01/28/2024 Pneumococcal Vaccine: 65+ Years Completed 08/30/2014, 12/26/2009 Alpha-1 Antitrypsin Completed 08/20/2021 VITAMIN D LEVEL ONCE IN A LIFETIME-USE SMARTSET# [id number] Completed 07/16/2023, 05/27/2021, 05/18/2020, Additional history exists [...] filedocumented as of this encounter Care Teams Job Forwarder Relationship Specialty Start Date End Date Ciro Zayas MD 200 [facility] [place] [address] PCP - General Internal Medicine 09/20/10 documented as of this encounter
--- OUTSIDE RECORDS SUMMARY | 2024-04-08 06:46 | External Medical Summary | Summary of Care ---
Author Name Unknown Organization [facility] Address [address] [place] [address] Phone [phone] Care Team Providers Care Publicity Consultant Name Role Phone Ciro Zayas MD Primary Care Provider + Encounter Details Date Type Department Care Team (Late st Contact Info) Description 01/22/2024 Telephone Urology Teresa Frias [address] [place] [address] [place] [address] Dory Heredia PA-C [address] [place] [address] Allergies No known active allergiesdocumented as of this encounter (statuses as of 01/25/2024) Medications Medication Sig Dispensed Refills Start Date [...] for Wheezing. 18 g 1 03/06/2022 Active traZODone HCl 50 MG Oral Tablet (Desyrel) Take 1 Tablet by mouth at bedtime. 90 Tablet 3 02/12/2023 Active Diclofenac Sodium 1 % External Gel (Voltaren)Indications :Bilateral hand pain Apply 2 gm to the hands bilaterally every 6 hours as needed for pain 10/15/2023 Active Atorvastatin Calcium 40 MG Oral Tablet (Lipitor)Indications: Coronary atherosclerosis due to lipid rich plaque TAKE 1 TABLET BY MOUTH EVERY DAY 90 Tablet 3 10/23/2023 Active Cyclobenzaprine HCl 5 MG Oral Tablet (Flexeril) [...] the morning. 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 Atherosclerosis of [place] co ronary artery of [place] heart without angina pectoris 05/19/2018 History of [...] as of this encounter (statuses as of 01/25/2024) Resolved Problems Problem Noted Date Diagnosed Date [...] as of this encounter (statuses as of 01/25/2024) Immunizations Name Administration Dates Next Due COVID-19 [...] Tobacco: Never Alcohol Use Standard Drinks/Week Comments No 0 (1 standard drink = 0.6 oz pur e alcohol) no drinks since 1978 PHQ-2 Answer Date Recorded PHQ Adult Total Score 14 12/17/2023 Hunger Vital Sign Answer Date Recorded Within [...] No 12/17/2023 Does the household have a [facility] source of income? (Household - for ages [...] Telephone Encounter - Mikala Jasso LPN - 01/25/2024 7:[address] Beltrán-" Would set the patient up for pathology discussion 2 weeks after TURBT in office with myself. Thanks, HM". Follow up scheduled at [facility] urology clinic due to provider availability * Telephone Encounter - Mikala Jasso LPN - 01/22/2024 2:05 PM EDT Spoke with patient and he eagerly accepted TURBT with Dr Merchant on 02/14. Instructions reviewed andmailed to patient. Dr Merchant- Solis mirrored the case to Dr sanchez, please let me know if I need to make any changes. * Telephone Encounter - Dory Heredia PA-C - 01/22/2024 1:47 PM EDT Called patient to discuss CT urogram results. No answer and full voice mailbox on his phone. I proceeded to call his brother's phone number on file who answered. Phone was transferred to Juan, and wediscussed his CT urogram did not show any masses in his kidneys or ureters in setting of his bladder tumor. Patient stated he wishes his surgery was sooner as he is unable to work and has anxiety. Hestated he would like to be placed on the cancellation list and moved up to a sooner date with either provider if available. Thanks! documented in this encounter Plan of Treatment Upcoming Encounters Date Type Department Care Team (Latest Contact Info) Description 02/15/2024 7:30 AM EDT Hospital Encounter OR [facility], Operating Room, [facility] - 4th Floor [address] [place] [address] Sabas Merchant Jr., MD [address] [place] [address] 02/15/2024 7:30 AM EDT - 02/15/2024 8:48 AM EDT Surgery OR [facility], Operating Room, [facility] - 4th Floor [address] [place] [address] Sabas Merchant Jr., MD 27 [place] [address] CYSTOURETHROSCOPY WITH FULGURATION MEDIUM BLADDER TUMOR 02/18/2024 10:30 AM EDT Nurse Only Urology, [facility] [address] [place] [address] Michael Nurse Urology Mauro 132 [place] [address] 03/03/2024 3:00 PM EDT Office Visit Urology Mary Ellen AlvesTeresa [address] [place] [address] [place] [address] Francisco Beltrán MD [address] [place] [address] 04/04/2024 3:45 PM EDT Office Visit Urology Mary Ellen AlvesTeresa [address] [place] [address] [place] [address] Francisco Beltrán MD [address] [place] [address] 05/16/2024 9:40 AM EDT Office Visit General Internal Medicine [facility] 200 [facility] [place] [address] Ciro Zayas MD 200 [facility] [place], [place] [address] 06/13/2024 9:30 AM EST Imaging Radiology, [address] [place] [address] 07/08/2024 9:30 AM EST [facility] [address] [place] [address] Divya Haskins CRNP [address] [place], [place] [address] [address] 07/18/2024 10:00 AM EST Office Visit Rheumatology [address] [place] [address] [place] Jaime CRNP 2520 [facility] [place] [address] 10/21/2024 9:30 AM EDT Imaging Vascular Lab, [facility] 2nd Floor, [place] [address] [place] [address] 10/24/2024 10:40 AM EDT Office Visit Dermatology [facility] [place] [address] [facility] [address] Jacquelin Muñoz PA-C [address] [facility] [place] [address] Scheduled Procedures Name Priority Associated Diagnoses Date/Ti [...] NOT ON FILE 02/02/2022 COVID-19 Vaccine ( - 2022- season) 2023 10/23/2020, 10/02/2020 *BISPHONATE OR OTHER ACCEPTABLE MEDICATION NEEDED FOR OSTEOPOROSIS (REFER TO SMARTSET #1146) 12/18/2023 Influenza Vaccine (FLU shot) (#1) 2024 DXA Scan 06/10/2024 06/10/2022, 08/0 09/2019, 02/09/2018, Additional history exists Depression Monitoring 12/16/2024 12/17/2023 O2 ASSESSMENT COMPLETED IN PAST YEAR FOR COPD 12/22/2024 12/23/2023 Pneumococcal Vaccine: 65+ Years Completed 08/30/2014, 12/26/2009 Alpha-1 Antitrypsin Completed 08/20/2021 VITAMIN D LEVEL ONCE IN A LIFETIME-USE SMARTSET# 12585 Completed 07/16/2023, 05/27/2021, 05/18/2020, Additional history exists [...] filedocumented as of this encounter Care Teams Publicity Consultant Relationship Specialty Start Date End Date Ciro Zayas MD [address] [place] [address] PCP - General Internal Medicine 09/20/10 documented as of this encounter
--- OUTSIDE RECORDS SUMMARY | 2024-04-08 06:46 | External Medical Summary | Summary of Care ---
Author Name Unknown Organization [facility] Address [address] [place] [address] Phone [phone] Care Team Providers Care Resource Manager Name Role Phone Ciro Zayas MD Primary Care Provider + Reason for Visit * Reason Onset Date Comments Test Results Lab 01/22/2024 Encounter Details Date Type Department Care Team (Late st Contact Info) Description 01/22/2024 Telephone General Internal Medicine [facility] 200 [facility] [place] [address] Ciro Zayas MD 200 [facility] [place] [facility] [place] [address] Test Results Lab Allergies No known active allergiesdocumented as of this encounter (statuses as of 01/22/2024) Medications Medication Sig Dispensed Refills Start Date [...] as of this encounter (statuses as of 01/22/2024) Active Problems Problem Noted Date Diagnosed Date [...] -19) 02/26/2022 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 Coronary atherosclerosis 10/06/2008 Overview: No obstructive lesions in 2008 - had coronary cath documented as of this encounter (statuses as of 01/22/2024) Immunizations Name Administration Dates Next Due COVID-19 [...] 12/17/2023 Does the household have a re lar source of income? (Household - for ages [...] encounter Miscellaneous Notes * Telephone Encounter - Martha Melo MED ASSIST - 01/22/2024 3:36 PM EDT Patient aware and receptive to instructions. ----- Message from Ciro Zayas MD sent at 01/22/2024 3:03 PM EDT ----- Hgb improving recheck 1 month Iron is high stop all iron supplements, will recheck 1 month documented in this encounter Plan of Treatment Upcoming Encounters Date Type Department Care Team (Latest Contact Info) Description 02/15/2024 7:30 AM EDT Hospital Encounter OR [facility], Operating Room, [facility] - 4th Floor [address] [place] [address] Sabas Merchant Jr., MD 27 [place] [address] 02/15/2024 7:30 AM EDT - 02/15/2024 8:48 AM EDT Surgery OR [facility], Operating Room, [facility] - 4th Floor [address] [place] [address] Sabas Merchant Jr., MD 27 [place] [address] CYSTOURETHROSCOPY WITH FULGURATION MEDIUM BLADDER TUMOR 02/18/2024 10:30 AM EDT Nurse Only Urology, Jarred Rodriguez [place] 132 [place] [address] Rodriguez, Nurse Urology [facility] [address] [place] [address] 04/04/2024 3:45 PM EDT Office Visit Urology Teresa Frias [address] [facility] 270 [place] [address] Francisco Beltrán MD 27 [place] [address] 05/16/2024 9:40 AM EDT Office Visit General Internal Medicine Dania Mcmahno [place] 200 [facility] [place] [address] Ciro Zayas MD 200 [facility] [place] [address] 06/13/2024 9:30 AM EST Imaging Radiology, [address] [place] [address] 07/08/2024 9:30 AM EST Office Visit Cardiology, [facility] 132 [facility] [place] [address] Divya Haskins CRNP [address] [place] [address] 07/18/2024 10:00 AM EST Office Visit Rheumatology [facility] 25[address] [facility] [place] [address] Jerad Connelly CRNP [address] [facility] [place] [address] 10/21/2024 9:30 AM EDT Imaging [facility] Lab, [facility] 132 [facility] [place] [address] 10/24/2024 10:40 AM EDT Office Visit Dermatology [facility] [place] [address] [place] [address] Jacquelin Muñoz PA-C [address] [place] [address] Scheduled Procedures Name Priority Associated Diagnoses Date/Ti [...] D LEVEL ONCE IN A LIFETIME-USE SMARTSET# 21918 Completed 07/16/2023, 05/27/2021, 05/18/2020, Additional history exists [...] filedocumented as of this encounter Care Teams Resource Manager Relationship Specialty Start Date End Date Ciro Zayas MD [address] [place] [address] PCP - General Internal Medicine 09/20/10 documented as of this encounter
--- OUTSIDE RECORDS SUMMARY | 2024-04-08 06:46 | External Medical Summary | Summary of Care ---
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 (Household - [...] Department Care Team (Latest Contact Info) Description 03/17/2024 12:05 PM EDT Hospital Encounter OR [facility], Operating Room, [facility] - 4th Floor [address] [place] [address] Francisco Beltrán MD 27 [place] [address] 03/17/2024 12:05 PM EDT - 03/17/2024 1:23 PM EDT Surgery OR [facility], Operating Room, [facility] - 4th Floor [address] [place] [address] Francisco Beltrán MD [address] [place] [address] CYSTOURETHROSCOPY WITH FULGURATION MEDIUM BLADDER TUMOR 03/22/2024 9:30 AM EDT [facility] 132 [facility] [place] [address] Michael Nurse Urology [facility] 132 [place] [address] 04/04/2024 3:45 PM EDT Office Visit Urology Teresa Frias [address] [place] [address] [place] [address] Francisco Beltrán MD [address] [place] [address] 05/16/2024 9:40 AM EDT Office Visit General Internal Medicine [facility] 200 [facility] [place] [address] Ciro Zayas MD 200 [facility] [place] [address] 06/13/2024 9:30 AM EST Imaging Radiology, [address] [place] [address] 07/08/2024 9:30 AM EST Office Visit Cardiology, [facility] 132 [facility] [place] [address] Divya Haskins CRNP 400 [facility] [place] [address] 07/18/2024 10:00 AM EST Office Visit Rheumatology [address] [place] [address] Jer[place] Connelly CRNP [address] [place] [address] [place] [address] 10/21/2024 9:30 AM EDT Imaging Vascular Lab, [facility] 2nd Floor, [place] [address] [facility] [place] [address] 10/24/2024 10:40 AM EDT Office Visit Dermatology [facility] [place] 3228 [place] [address] Jacquelin Muñoz PA-C 3[address] [facility] [place] [address] Pending Results Name Type Priority Associated Diagnoses Date /Time IRON SCREEN, INCLUDING TIBC Lab Routine Decreased hemoglobin 01/22/2024 8:38 AM EDT FERRITIN Lab Routine Decreased hemoglobin 01/22/2024 8:38 AM EDT Scheduled Procedures Name Priority Associated Diagnoses Date/Ti me CYSTOURETHROSCOPY WITH FULGURATION MEDIUM BLADDER TUMOR Abnormal CT scan, bladder Bladder mass 03/17/2024 12:05 PM EDT 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 Abnormal CT scan, bladder Bladder mass 03/17/2024 12:05 PM EDT Health Maintenance Due Date Last [...] 06/10/2022, 0809/2019, 02/09/2018, Additional history exists Depression Monitoring 12/16/2024 12/17/2023 O2 ASSESSMENT COMPLETED IN PAST YEAR FOR COPD 12/22/2024 12/23/2023 Pneumococcal Vaccine: 65+ Years Completed 08/30/2014, 12/26/2009 Alpha-1 Antitrypsin Completed 08/20/2021 VITAMIN D LEVEL ONCE IN A LIFETIME-USE SMARTSET# [id number] Completed 07/16/2023, 05/27/2021, 05/18/2020, Additional history exists [...] Date/Time Associated Diagnosis Comments DIFFERENTIAL, AUTOMATED Routine 01/22/2024 8:38 AM EDT Decreased hemoglobin CBC Routine 01/22/2024 8:38 AM EDT Decreased hemoglobin CBC Routine 01/22/2024 8:38 AM EDT Decreased hemoglobin documented in this encounter Results * DIFFERENTIAL, AUTOMATED (01/22/2024 8:38 AM EDT) WBC 7.84 4.00 - 10.80 K/uL 01/22/2024 8:57 AM EDT [facility] 56-02 Neutrophils % 66.8 40.0 - 75.0 % 01/22/2024 8:57 AM EDT [facility]02 Lymphocytes % 18.5 18.0 - 42.0 % 01/22/2024 8:57 AM EDT [facility] 56-02 Monocytes % 10.6 1.0 - 11.0 % 01/22/2024 8:57 AM EDT [facility] 56-02 Eosinophils % 3.3 0.0 - 6.0 % 01/22/2024 8:57 AM EDT [facility] 56-02 Basophils % 0.8 0.0 - 2.0 % 01/22/2024 8:57 AM EDT [facility] 56-02 Absolute Neutrophils 5.24 1.80 - 7.70 K/uL 01/22/2024 8:57 AM EDT [facility] 56-02 Absolute Lymphocytes 1.45 1.00 - 4.80 K/ul 01/22/2024 8:57 AM EDT [facility] 56 Absolute Monocytes 0.83 0.00 - 1.10 K/uL 01/22/2024 8:57 AM EDT [facility] 56 Absolute Eosinophils 0.26 0.00 - 0.70 K/uL 01/22/2024 8:57 AM EDT [facility] 56 Absolute Basophils 0.06 0.00 - 0.20 K/uL 01/22/2024 8:57 AM EDT [facility] 56 Blood Venous blood specimen / Unknown Venipuncture / Unknown 01/22/2024 8:38 AM EDT 01/22/2024 8:38 AM EDT Ciro Zayas MD LAB BLOOD ORDERA BLES [facility] [address] [place] [address] * (ABNORMAL) CBC (01/22/2024 8:38 AM EDT) WBC 7.84 4.00 - 10.80 K/uL 01/22/2024 8:57 AM EDT [facility] RBC 4.19 4.50 - 5.25 M/uL 01/22/2024 8:57 AM EDT [facility] HGB 12.9(L) 14.0 - 16.8 g/dL 01/22/2024 8:57 AM EDT [facility] HCT 39.3(L) 40.0 - 48.4 % 01/22/2024 8:57 AM EDT [facility] MCV 93.8 82.0 - 99.5 fL 01/22/2024 8:57 AM EDT [facility] MCH 30.8 27.0 - 34.0 pg 01/22/2024 8:57 AM EDT [facility] MCHC 32.8 32.0 - 36.0 g/dL 01/22/2024 8:57 AM EDT [facility] 56 RDW 13.4 11.5 - 15.5 % 01/22/2024 8:57 AM EDT [facility] PLT 198 140 - 400 K/uL 01/22/2024 8:57 AM EDT [facility] MPV 8.8 6.6 - 11.1 fL 01/22/2024 8:57 AM EDT [facility] Blood Venous blood specimen / Unknown Venipuncture / Unknown 01/22/2024 8:38 AM EDT 01/22/2024 8:38 AM EDT Ciro aZyas MD LAB BLOOD ORDERA BLES [facility] 200 [facility] [address] documented in this encounter Visit Diagnoses Diagnosis Abnormal CT scan, bladder Nonspecific (abnormal) findings on radiological and other examination of genitourinary organs Bladder mass Other specified disorders of bladder Decreased hemoglobin Anemia, unspecified Abnormal CT scan, bladder Nonspecific (abnormal) findings on radiological and other examination of genitourinary organs Bladder mass Other specified disorders of bladder documented in this encounter Care Teams Locket Maker Relationship Specialty Start Date End Date Ciro Zayas MD 200 [facility] [address] PCP - General Internal Medicine 09/20/10 documented as of this encounter
--- OUTSIDE RECORDS SUMMARY | 2024-04-08 06:46 | External Medical Summary | Summary of Care ---
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 (Household - for ages [...] Instructions reviewed andmailed to patient. Dr Merchant- I mirrored the case to Dr sanchez, please [...] Department Care Team (Latest Contact Info) Description 02/18/2024 10:30 AM EDT Nurse Only Urology, [facility] 132 [place] [address] [facility] Nurse Urology [facility] 132 [place] [address] 03/17/2024 12:05 PM EDT Hospital Encounter OR [facility], Operating Room, [facility] - 4th Floor [address] [place] [address] Francisco Beltrán MD 27 [place] [address] 03/17/2024 12:05 PM EDT - 03/17/2024 1:23 PM EDT Surgery OR [facility], Operating Room, [facility] - 4th Floor [address] [place] [address] Francisco Beltrán MD 27 [place] [address] CYSTOURETHROSCOPY WITH FULGURATION MEDIUM BLADDER TUMOR 04/04/2024 3:45 PM EDT Office Visit Urology Teresa Frias [address] [place] [address] Francisco Beltrán MD [address] [place] [address] 05/16/2024 9:40 AM EDT Office Visit General Internal Medicine [facility] 200 [facility] [place] [address] Ciro Zayas MD 200 [facility] [place] [address] 06/13/2024 9:30 AM EST Imaging Radiology, [address] [place] [address] 07/08/2024 9:30 AM EST Office Visit Cardiology, [facility] 132 [place] [address] Divya Haskins CRNP [address] [place] [address] [place] [address] 07/18/2024 10:00 AM EST Office Visit Rheumatology [place] [address] [facility] [place] [address] Jerad Connelly CRNP [address] [place] [address] [place] [address] 10/21/2024 9:30 AM EDT Imaging Vascular Lab, [facility] 132 [facility] [place] [address] 10/24/2024 10:40 AM EDT Office Visit Dermatology [facility] [place] [address] [place] [address] Jacquelin Muñoz PA-C 3228 [facility] [place] [address] Scheduled Procedures Name Priority Associated Diagnoses Date/Ti [...] D LEVEL ONCE IN A LIFETIME-USE SMARTSET# 42173 Completed 07/16/2023, 05/27/2021, 05/18/2020, Additional history exists [...] filedocumented as of this encounter Care Teams Director Corporate Compliance Relationship Specialty Start Date End Date Ciro Zayas MD 200 [place]ia [place] [address] PCP - General Internal Medicine 09/20/10 documented as of this encounter
--- OUTSIDE RECORDS SUMMARY | 2024-04-08 06:46 | External Medical Summary ---
Author Name Unknown Address Unknown Organization K09[facility] [place] [address] Laboratory Report Ordering Provider Test Date Status PURVI WARD 01/22/2024 08:38:21 Final Observation Date Value Abnormality Reference (Units ) Status WBC, Total 01/22/2024 08:38:21 7.84 4.00-10.8 0 (K/uL) Final RBC 01/22/2024 08:38:21 4.19 4.50-5.25 (M/uL) Final Hemoglobin 01/22/2024 08:38:21 12.9 Below low normal 14 .0-16.8 (g/dL) Final HCT 01/22/2024 08:38:21 39.3 Below low normal 40. 0-48.4 (%) Final MCV 01/22/2024 08:38:21 93.8 82.0-99.5 (fL) Final MCH 01/22/2024 08:38:21 30.8 27.0-34.0 (pg) Final MCHC 01/22/2024 08:38:21 32.8 32.0-36.0 (g/dL) Final RDW 01/22/2024 08:38:21 13.4 11.5-15.5 (%) Final Platelets 01/22/2024 08:38:21 198 140-400 (K /uL) Final MPV 01/22/2024 08:38:21 8.8 6.6-11.1 ( fL) Final Performing Location [facility] [place] [address]
--- OUTSIDE RECORDS SUMMARY | 2024-04-08 06:46 | External Medical Summary | Summary of Care ---
Author Name Unknown Organization [facility] Address [address] [place] [address] Phone [phone] Care Team Providers Care Frame Runner Name Role Phone Ciro Zayas MD Primary Care Provider + Encounter Details Date Type Department Care Team (Late st Contact Info) Description 01/22/2024 Telephone Urology Teresa Frias [address] [place] [address] Dory Heredia PA-C [address] [place] [address] Allergies No known active allergiesdocumented as of [...] -19) 02/26/2022 Senile osteoporosis 12/24/2018 Atherosclerosis of [place] co ronary artery of [place] heart without angina pectoris 05/19/2018 History of [...] No 12/17/2023 Does the household have a [facility] source of income? (Household - for [...] 10:30 AM EDT Nurse Only Urology, [facility] 132 [place] [address] [facility] Nurse Urology [facility] 132 [place] [address] 03/17/2024 12:05 PM EDT Hospital Encounter OR [facility], Operating Room, [facility] - 4th Floor [address] [place] [address] Francisco Beltrán MD 27 [place] [address] 03/17/2024 12:05 PM EDT - 03/17/2024 1:23 PM EDT Surgery OR [facility], Operating Room, [facility] - 4th Floor [address] [place] [place] [address] Francisco Beltrán MD 27 [place] [address] CYSTOURETHROSCOPY WITH FULGURATION MEDIUM BLADDER TUMOR 04/04/2024 3:45 PM EDT Office Visit Urology Teresa Frias [address] [place] [address] Francisco Beltrán MD [address] [place] [address] 05/16/2024 9:40 AM EDT Office Visit General Internal Medicine [facility] 200 [facility] [place] [address] Ciro Zayas MD 200 [facility] [place] [address] 06/13/2024 9:30 AM EST Imaging Radiology, [address] [place] [address] 07/08/2024 9:30 AM EST Office Visit Cardiology, [facility] 132 [place] [address] Divya Haskins CRNP [address] [place] [address] [place] [address] 07/18/2024 10:00 AM EST Office Visit Rheumatology [place] 076440 [facility] [place] [address] Jerad Connelly CRNP [address] [place] [address] [place] [address] 10/21/2024 9:30 AM EDT Imaging [facility], [facility] 132 [facility] [place] [address] 10/24/2024 10:40 AM EDT Office Visit Dermatology [facility] [place] [address] [place] [address] Jacquelin Muñoz PA-C 3228 [facility] [place] [address] Scheduled Procedures Name Priority Associated Diagnoses Date/Ti [...] D LEVEL ONCE IN A LIFETIME-USE SMARTSET# 18734 Completed 07/16/2023, 05/27/2021, 05/18/2020, Additional history exists [...] filedocumented as of this encounter Care Teams Frame Runner Relationship Specialty Start Date End Date Ciro aZyas MD [address] [place] [place] [address] PCP - General Internal Medicine 09/20/10 documented as of this encounter
--- OUTSIDE RECORDS SUMMARY | 2024-04-08 06:46 | External Medical Summary | Summary of Care ---
Author Name Unknown Organization [facility] Address [address] [place] [address] Phone [phone] Care Team Providers Care Business Relationship Manager Name Role Phone Ciro Zayas MD Primary Care Provider + Reason for Visit * Reason Comments Outpatient Testing Encounter Details Date Type Department Care Team (Late st Contact Info) Description 02/08/2024 8:50 AM EDT Laboratory Laboratory [facility] [address] [place] [address] [facility] [address] [place] [address] Bladder mass; Unspecified abnormal findings in urine Allergies No known active allergiesdocumented as of [...] -19) 02/26/2022 Senile osteoporosis 12/24/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 [place] [address] Mayur Quintero, Sabas Doherty MD 27 [place] [address] CYSTOURETHROSCOPY WITH FULGURATION MEDIUM BLADDER TUMOR 02/18/2024 10:30 AM EDT Nurse Only Urology, [facility] [address] [place] [address] [facility] Nurse Urology [facility] [address] [place] [address] 03/03/2024 3:00 PM EDT Office Visit UrologTeresa Medina [address] 270 [place] [address] Francisco Beltrán MD 27 [place] [address] 04/04/2024 3:45 PM EDT Office Visit UrologTeresa Medina [address] 270 [place] [address] Francisco Beltrán MD 27 [place] [address] 05/16/2024 9:40 AM EDT Office Visit General Internal Medicine [facility] [place] 200 [place] [address] Ciro Zayas MD 200 [facility] [place] [address] 06/13/2024 9:30 AM EST Imaging Radiology, [facility] 2520 [facility] [place], [place] [address] 07/08/2024 9:30 AM EST Office Visit Cardiology, [facility] 132 [facility] [place] [address] Divya Haskins CRNP 400 [facility] [place] [address] 07/18/2024 10:00 AM EST Office Visit Rheumatology [place] 832730 [facility] [place] [address] Jerad Connelly CRNP 2520 [facility] [place] [address] 10/21/2024 9:30 AM EDT Imaging Vascular Lab, [facility] 2nd [facility] 132 [facility] [place] [address] 10/24/2024 10:40 AM EDT Office Visit Dermatology [facility] 3228 [place] [address] Jacquelin Muñoz PA-C 3228 [place] [address] Pending Results Name Type Priority Associated Diagnoses Date /Time CULTURE, URINE, QUANTITATIVE Lab Routine Bladder mass Unspecified abnormal findings in urine 02/08/2024 8:47 AM EDT Scheduled Procedures Name Priority Associated Diagnoses Date/Ti wv CYSTOURETHROSCOPY WITH FULGURATION MEDIUM BLADDER TUMOR Abnormal [...] 06/10/2022, 08/0 09/2019, 02/09/2018, Additional history exists O2 ASSESSMENT COMPLETED IN PAST YEAR FOR COPD 12/22/2024 12/23/2023 Depression Screening 01/27/2025 01/28/2024 Pneumococcal Vaccine: 65+ Years Completed 08/30/2014, 12/26/2009 Alpha-1 Antitrypsin Completed 08/20/2021 VITAMIN D LEVEL ONCE IN A LIFETIME-USE SMARTSET# [id number] Completed 07/16/2023, 05/27/2021, 05/18/2020, Additional history exists [...] Bladder mass Other specified disorders of bladder Unspecified abnormal findings in urine Abnormal CT scan, bladder Nonspecific (abnormal) findings on radiological and other examination of genitourinary organs Bladder mass Other specified disorders of bladder documented in this encounter Care Teams Business Relationship Manager Relationship Specialty Start Date End Date Ciro Zayas MD 200 [place] [address] PCP - General Internal Medicine 09/20/10 documented as of this encounter
--- OUTSIDE RECORDS SUMMARY | 2024-04-08 06:46 | External Medical Summary | Summary of Care ---
Author Name Unknown Organization [facility] Address [address] [facility] [address] Phone [phone] Care Team Providers Care Enterprise Cloud Architect Name Role Phone Ciro Zayas MD Primary Care Provider + Encounter Details Date Type Department Care Team (Late st Contact Info) Description 01/25/2024 Telephone Urology, [facility] 132 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 (Household - [...] encounter Miscellaneous Notes * Telephone Encounter - Vania Scott LPN - 01/25/2024 10:05 AM EDT Received message to call patient regarding postop period, work restrictions, paperwork. Attempted to reach pt, mailbox full. documented in this encounter Plan of Treatment Upcoming Encounters Date Type Department Care Team (Latest Contact Info) Description 02/15/2024 7:30 AM EDT Hospital Encounter [facility], Operating Room, [facility] - 4th Floor [address] [place] [address] Sabas Merchant Jr., MD 27 [place] [address] 02/15/2024 7:30 AM EDT - 02/15/2024 8:48 AM EDT Surgery OR [facility], Operating Room, [facility] - 4th Floor [address] [place] [address] Sabas Merchant Jr., MD 27 [place] [address] CYSTOURETHROSCOPY WITH FULGURATION MEDIUM BLADDER TUMOR 02/18/2024 10:30 AM EDT Nurse Only Urology, [facility] [address] [facility] [address] [facility] [address] [facility] [place] [address] 03/03/2024 3:00 PM EDT Office Visit Teresa Bueno [address] 270 [place] [address] Francisco Beltrán MD 27 [place] [address] 04/04/2024 3:45 PM EDT Office Visit Teresa Bueno [address] 270 [place] [address] Francisco Beltrán MD 27 [place] [address] 05/16/2024 9:40 AM EDT Office Visit General Internal Medicine Dania Mcmahon [place] 200 [facility] [place] [address] Ciro Zayas MD 200 [facility] [place] [address] 06/13/2024 9:30 AM EST Imaging Radiology, [place] 240330 [facility] [place], [place] [address] 07/08/2024 9:30 AM EST Office Visit Cardiology, [facility] 132 [place] [address] Divya Haskins CRNP [address] [place] [address] [place] [address] 07/18/2024 10:00 AM EST Office Visit Rheumatology [place] 240330 [facility] [place] [address] Jerad Connelly CRNP [address] [place] [address] [place] [address] 10/21/2024 9:30 AM EDT Imaging Vascular Lab, [facility] 132 [facility] [address] 10/24/2024 10:40 AM EDT Office Visit Dermatology [facility] 3228 [place] [address] Jacquelin Muñoz PA-C 3228 [place] [address] Scheduled Procedures Name Priority Associated Diagnoses Date/Ti [...] D LEVEL ONCE IN A LIFETIME-USE SMARTSET# [id number] Completed 07/16/2023, 05/27/2021, 05/18/2020, Additional history exists [...] filedocumented as of this encounter Care Teams Enterprise Cloud Architect Relationship Specialty Start Date End Date Ciro Zayas MD 200 [place] [address] PCP - General Internal Medicine 09/20/10 documented as of this encounter
--- OUTSIDE RECORDS SUMMARY | 2024-04-08 06:46 | External Medical Summary | Summary of Care ---
Author Name Unknown Organization [facility] Address [address] [facility] [address] Phone [phone] Care Team Providers Care Retort Forker Name Role Phone Ciro Zayas MD Primary Care Provider + Encounter Details Date Type Department Care Team (Late st Contact Info) Description 01/25/2024 Telephone Urology, [facility] 132 [facility] [place] [address] Francisco Beltrán MD 27 [facility] [place] [address] Allergies No known active allergiesdocumented as of this encounter (statuses as of 01/26/2024) Medications Medication Sig Dispensed Refills Start Date [...] as of this encounter (statuses as of 01/26/2024) Active Problems Problem Noted Date Diagnosed Date [...] -19) 02/26/2022 Senile osteoporosis 12/24/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 Patient had concerns about postoperative pain and healing. Questions answered to patient's satisfaction. * Telephone Encounter - Vania Scott LPN - 01/25/2024 10:05 AM EDT Received message to call patient regarding postop period, work restrictions, paperwork. Attempted to reach pt, mailbox full. documented in this encounter Plan of Treatment Upcoming Encounters Date Type Department Care Team (Latest Contact Info) Description 02/15/2024 7:30 AM EDT Hospital Encounter OR [facility], Operating Room, [facility] - 4th Floor [address] [place] [address] Sabas Merchant Jr., MD 27 [place] [address] 02/15/2024 7:30 AM EDT - 02/15/2024 8:48 AM EDT Surgery OR [facility], Operating Room, [facility] Floor [address] [place] [address] Sabas Merchant Jr., MD 27 [place] [address] CYSTOURETHROSCOPY WITH FULGURATION MEDIUM BLADDER TUMOR 02/18/2024 10:30 AM EDT Nurse Only Urology, [facility] 132 [place] [address] [facility] Nurse Urology Mauro [address] [place] [address] 03/03/2024 3:00 PM EDT Office Visit Urology Teresa Frias [address] 270 [place] [address] Francisco Beltrán MD 27 [place] [address] 04/04/2024 3:45 PM EDT Office Visit UrologTeresa Medina [address] 270 [place] [address] Francisco Beltrán MD [address] [place] [address] 05/16/2024 9:40 AM EDT Office Visit General Internal Medicine [facility] 200 [facility] [place] [address] Ciro Zayas MD 200 [facility] [place] [address] 06/13/2024 9:30 AM EST Imaging Radiology, [address] [place] [address] 07/08/2024 9:30 AM EST Office Visit Cardiology, [facility] 132 [facility] [address] Divya Haskins CRNP [address] [place] [address] [place] [address] 07/18/2024 10:00 AM EST Office Visit Rheumatology [address] [place] [address] Jerad Connelly CRNP [address] [place] [address] [place] [address] 10/21/2024 9:30 AM EDT Imaging [facility]ascular Lab, [facility] 132 [facility] [place] [address] 10/24/2024 10:40 AM EDT Office Visit Dermatology [facility] [place] 3228 [facility] [place] [address] Jacquelin Muñoz PA-C 3228 [facility] [place] [address] Scheduled Procedures Name Priority Associated Diagnoses Date/Ti [...] 06/10/2022, 09/2019, 02/09/2018, Additional history exists Depression Monitoring 12/16/2024 12/17/2023 O2 ASSESSMENT COMPLETED IN PAST YEAR FOR COPD 12/22/2024 12/23/2023 Pneumococcal Vaccine: 65+ Years Completed 08/30/2014, 12/26/2009 Alpha-1 Antitrypsin Completed 08/20/2021 VITAMIN D LEVEL ONCE IN A LIFETIME-USE SMARTSET# 50193 Completed 07/16/2023, 05/27/2021, 05/18/2020, Additional history exists [...] filedocumented as of this encounter Care Teams Retort Forker Relationship Specialty Start Date End Date Ciro Zayas MD 200 [facility] [place] [address] PCP - General Internal Medicine 09/20/10 documented as of this encounter
--- OUTSIDE RECORDS SUMMARY | 2024-04-08 06:46 | External Medical Summary ---
Author Name Unknown Address Unknown Organization K01:[facility] [place] [address] [place] [id number] Laboratory Report Ordering Provider Test Date Status AYANNASTEPHANIE 02/08/2024 08:47:46 Final Observation Date Value Abnormality Reference (Units) Status Bacteria identified in Specimen by Culture 02/08/2024 08:47:46 No significant growth Final Test: Culture, Urine, Quanti tative
Specimen Source: Urine, Clean Catch
Specimen Type: Urine
Specimen Date: 02/08/2024 0847
Result Date: 02/09/2024 0854
Result Status: Final result
Resulting Lab: [facility]
[address]
[facility] [address]

CULTURE

No significant growth

null Performing Location [facility] [place] [address] [facility] [address]
--- OUTSIDE RECORDS SUMMARY | 2024-04-08 06:46 | External Medical Summary | Summary of Care ---
Author Name Unknown Organization [facility] Address [address] [place] [address] Phone [phone] Care Team Providers Care Talent Acquisition Manager Name Role Phone Ciro Zayas MD Primary Care Provider + Encounter Details Date Type Department Care Team (Late st Contact Info) Description 01/22/2024 Telephone Urology Teresa Frias [address] 270 [place] [address] Dory Heredia PA-C [address] [place] [address] Allergies No known active allergiesdocumented as of [...] -19) 02/26/2022 Senile osteoporosis 12/24/2018 Atherosclerosis of [place] co ronary artery of [place] heart without angina pectoris 05/19/2018 History of [...] No 12/17/2023 Does the household have a [facility] source of income? (Household - for [...] Encounter - Mikala Jasso LPN - 01/25/2024 9:56 AM EDT Patient aware and accepts post op appt in [place] with Dr beltrán * Telephone Encounter - Mikala Jasso LPN - 01/25/2024 7:[address] Beltrán-" Would set the patient up for pathology discussion 2 weeks after TURBT in office with myself. Thanks, HM". Follow up scheduled at [facility] urology clinic due to provider availability * Telephone Encounter - Mikala Jasso LPN - 01/22/2024 2:05 PM EDT Spoke with patient and he eagerly accepted TURBT with Dr Merchant on 02/14. Instructions reviewed andmailed to patient. Dr Gabby Ely mirrored the case to Dr sanchez, please [...] 02/15/2024 7:30 AM EDT Hospital Encounter OR [facility], Operating Room, [facility] - 4th Floor [address] [place] [address] Mayur Quintero, Sabas Doherty MD [address] [place] [address] [place] [address] 02/15/2024 7:30 AM EDT - 02/15/2024 8:48 AM EDT Surgery OR [facility], Operating Room, [facility] - 4th Floor [address] [place] [address] Sabas Merchant Jr., MD 27 [place] [address] CYSTOURETHROSCOPY WITH FULGURATION MEDIUM BLADDER TUMOR 02/18/2024 10:30 AM EDT Nurse Only Urology, [facility] 132 [facility] [place] [address] [facility] Nurse Urology [facility] [address] [place] [address] 03/03/2024 3:00 PM EDT Office Visit Lux Simmonsy Teresa Alves [address] 270 [place] [address] Francisco Beltrán MD 27 [place] [address] 04/04/2024 3:45 PM EDT Office Visit Teresa Bueno [address] 270 [place] [address] Francisco Beltrán MD 27 [place] [address] 05/16/2024 9:40 AM EDT Office Visit General Internal Medicine [facility] [address] [place] [address] Ciro Zayas MD [address] [place] [address] 06/13/2024 9:30 AM EST Imaging Radiology, [facility] 2520 [facility] [place] [address] 07/08/2024 9:30 AM EST Office Visit Cardiology, [facility] 132 [facility] [place] [address] Divya Haskins CRNP [address] [place] [address] 07/18/2024 10:00 AM EST Office Visit Rheumatology [facility] 2520 [facility] [place] [address] Jerad Connelly CRNP [address] [place] [address] 10/21/2024 9:30 AM EDT Imaging Vascular Lab, [facility] 2nd Floor, [place] [address] [place] [address] 10/24/2024 10:40 AM EDT Office Visit Dermatology [facility] [place] [address] [place] [address] Jacquelin Muñoz PA-C 3[address] [place] [address] Scheduled Procedures Name Priority Associated Diagnoses Date/Ti [...] D LEVEL ONCE IN A LIFETIME-USE SMARTSET# [id number] Completed 07/16/2023, 05/27/2021, 05/18/2020, Additional history exists [...] filedocumented as of this encounter Care Teams Talent Acquisition Manager Relationship Specialty Start Date End Date Ciro Zayas MD 200 [facility] [place] [address] PCP - General Internal Medicine 09/20/10 documented as of this encounter
--- OUTSIDE RECORDS SUMMARY | 2024-04-08 06:47 | External Medical Summary ---
Author Name Unknown Address Unknown Organization K01:[facility] - [address] [facility] [address] [place] [address] Laboratory Report Ordering Provider Test Date Status PURVI WARD 01/22/2024 08:38:21 Final Observation Date Value Abnormality Reference (Units ) Status Ferritin 01/22/2024 08:38:21 80 30-400 (ng /mL) Final Performing Location [facility] - [address] [place] [address]
--- OUTSIDE RECORDS SUMMARY | 2024-04-08 06:47 | External Medical Summary | Summary of Care ---
Author Name Unknown Organization [facility] Address [address] [place] [address] Phone [phone] Care Team Providers Care Aircraft Electronics Technical Officer Name Role Phone Ciro Zayas MD Primary Care Provider + Reason for Referral * Precert (Within 10 days (routine)) - Authorized Specialty Diagnoses / Procedures Referred By Contac t Referred To Contact Radiology Diagnoses Bladder mass Procedures CT UROGRAPHY W WO CONTRAST Francisco Beltrán MD [address] [place] [address] [place] [address] Referral ID Status Reason Start Date Expiration Date V isits Requested Visits Authorized [id number] Authorized 01/11/[phone] Reason for Visit * Reason Comments NEW PATIENT * Evaluate & Treat - Unlimited Visits (Within 10 days (routine)) - Authorized Specialty Diagnoses / Procedures Referred By Contac t Referred To Contact Urology Diagnoses Mass of bladder Ronen Hubbard DO [address] [place] [id number] Referral ID Status Reason Start Date Expiration Date Visits Requested Visits Authorized [id number] Authorized Specialty Services Required 12/09/[phone] Encounter Details Date Type Department Care Team (Latest Contact Info) Description 01/11/2024 2:00 PM EDT Procedure Only Urology, [facility] 132 [facility] [place] [address] Francisco Beltrán MD [address] [address] [place] [address] scan, bladder*; Bladder mass; Mass of bladder [N32.89] Allergies No known active allergiesdocumented as of this encounter (statuses as of 01/11/2024) Medications Medication Sig Dispensed Refills Start Date [...] HOURS NEEDED FOR MUSCLE SPASMS 11/20/2023 Active Sertraline HCl 50 MG Oral Tablet (Zoloft)Indications:G AD (generalized anxiety disorder) 0.5 pill by mouth once a day for 2 weeks then 1 pill daily 30 Tablet 1 12/23/2023 Active Ferrous Sulfate 325 (65 Fe) MG [...] in the morning. 60 Tablet 01/01/2024 Active LORazepam 0.5 MG Oral Tablet (Ativan)Indications:G AD (generalized anxiety disorder) Take 1 Tablet by mouth every 8 hours as needed for Anxiety. 21 Tablet 01/05/2024 Active Finasteride 5 MG Oral Tablet (Proscar) Take 1 Tablet by mouth in the morning. 90 Tablet 3 01/11/2024 Active Hospital, Clinic, or Other Facility Administered Medication Ordered Dose Route Frequency Start Date End Date Status sulfamethoxazole-trimethopr im DS (Bactrim DS) 800-160 MG 1 TabletIndications:[address] scan, bladder 1 Tablet OR ONCE 01/11/2024 01/12/2024 Active documented as of this encounter (statuses as of 01/11/2024) Active Problems Problem Noted Date Diagnosed Date [...] -19) 02/26/2022 Senile osteoporosis 12/24/2018 Atherosclerosis of [place] co ronary artery of [place] heart without angina pectoris 05/19/2018 History of gout 03/10/2018 Varicose vein of leg 09/08/2017 History of nonmelanoma skin cancer 06/02/2017 Overview: BCC L midback 03/10 BCC right post-auricular scalp 06/06 BCC right pre-auricular ear 2 BCC right chest 2/10 BCC under the right ala 02/26 History of alcohol dependence 03/05/2017 Dyslipidemia, goal LDL below 70 10/02/2011 Restless leg syndrome 09/24/2010 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 Bradycardia 12/01/2008 Beta-blockers contraindicated YURY inhibitor intolerance Overview: low blood pressure documented as of this encounter (statuses as of 01/11/2024) Resolved Problems Problem Noted Date Diagnosed Date [...] as of this encounter (statuses as of 01/11/2024) Immunizations Name Administration Dates Next Due COVID-19 [...] Progress Notes * Francisco Beltrán MD - 01/11/2024 2:00 PM EDT [id number] PCP: CIRO ZAYAS [place], [place] [id number] Juan Vazquez is a 88 year old [...] PSA SCREENING 1.06 07/26/2009 09:07 AM Current Outpatient Medications Medication Sig Dispense Refill [...] use: No Comment: no drinks since 1978 Vaping/E-Cigarette Use Vaping/E-Cigarette Use Never User Vaping/E-Cigarette Substances Vaping/E-Cigarette Devices Past Surgical History: Procedure Laterality Date COLONOSCOPY, DIAGNOSTIC (RECTUM) 06/19/2021 normal bx / COLONOSCOPY FLEXIBLE PROXIMAL DIAGNOSTIC performed by Shelly Phillip MD at [facility] COLORECTAL CANCER SCREEN; NOT AT RISK 04/17/09 done diverticulosis,a single non-bleeding colonic angioectasia DENTAL SURGERY PROCEDURE NEC 07/20/2013 EGD, FLEXIBLE, DIAGNOSTIC 06/19/2021 duodenal diverticulum,gastric heterotopia, reflux esophagitis / ESOPHAGOGASTRODUODENOSCOPY (EGD), FLEXIBLE, TRANSORAL, DIAGNOSTIC performed by Shelly Phillip MD at [facility] 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HCC) 2003 Beta-blockers contraindicated Bradycardia 12/01/2008 COPD (chronic obstructive pulmonary disease) ([facility]) COPD, mild ([facility]) 04/05/2012 Coronary atherosclerosis 10/06/2008 Dyslipidemia, goal LDL below 70 10/02/2011 Gout 05/31/2013 History of 2019 novel coronavirus disease (COVID-19) 02/26/2022 History of alcohol dependence ([facility]) 03/05/2017 History of cigarette smoking 02/26/2022 History of pulmonary embolism 02/26/2022 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 PAD (peripheral artery disease) ([facility]) 09/23/2022 Personal history of alcoholism ([facility]) sober since 10/1978 Patient Active Problem List Diagnosis Bradycardia Impotence of organic origin Restless leg syndrome Beta-blockers contraindicated YURY inhibitor intolerance Dyslipidemia, goal LDL below 70 History of alcohol dependence ([facility]) History of nonmelanoma skin cancer Varicose vein of leg History of gout Atherosclerosis of [place] coronary artery of [place] heart without angina pectoris Senile osteoporosis History of pulmonary embolism History of cigarette smoking History of 2019 novel coronavirus disease (COVID-19) PVD (peripheral vascular disease) ([facility]) AAA (abdominal aortic aneurysm) ([facility]) COPD, group D, by GOLD 2017 classification ([facility]) Frequent PVCs NSVT (nonsustained ventricular tachycardia) ([facility]) Aortic ectasia, abdominal (HCC) Constitutional: (-) fever and (-) chills ENT: (-) stridor Male : see HPI Musculoskeletal: (+) joint pain Neurology: (-) negative: no focal neurologic defect Psychiatry: (+) depression Physical Exam Nursing note reviewed. Exam conducted with a auto air conditioning installer present. Constitutional: General: He is not in [...] for the procedure. A well lubricated 16 [place] flexible cystoscope was introduced through the meatus [...] the procedure well without complications or difficulties. Textile Supervisor was present for entire pro cedure. Perioperative Bactrim was provided. Impression/Plan: 88-year-old male with new diagnosis of urothelial malignancy of the bladder. Findings reviewed with the patient. Will obtain a CT urogram for more accurate staging. Findings and pathophysiology of urothelial malignancy reviewed. Will proceed with initial TURBT and instillation of mitomycin-C. Seen the patient's cardiac history proceeded [facility] for intervention. Risks and benefits, expected convalescence are reviewed. Informed consent obtained. Patient is anxious regarding his diagnosis. Will see at the time of resection. Patient vocalizes good understanding of the treatment plan. Above content is personally reviewed. TURBT, possible instillation of mitomycin-C. 3-5 days trial of void. Three week postop check. Francisco Beltrán MD 8:22 AM 01/11/2024 documented in this encounter Nursing Notes * Vania Scott LPN - 01/11/2024 2:09 PM EDT New pt. C/o frequency, feelings of incomplete emptying, nocturia x 2, weak stream. No visible bloodin urine. PVR 13 ml documented in this encounter Plan of Treatment Upcoming Encounters Date Type Department Care Team (Late st Contact Info) Description 01/15/2024 1:45 PM EDT Imaging Radiology [facility] 1st Floor, [place] 132 [facility] [place] [address] 01/15/2024 2:30 PM EDT Nurse Only Urology, [facility] 132 [facility] [place] [address] Michael, Nurse Urology [address] [place] [address] 03/31/2024 10:00 AM EDT Office Visit Urology Teresa Frias [address] [address] [place] [address] Francisco Beltrán MD [address] [address] [place] [address] 05/16/2024 9:40 AM EDT Office Visit General Internal Medicine [facility] 200 [facility] [place] [address] Ciro Zayas MD 200 [facility] [place] [address] 06/13/2024 9:30 AM EST Imaging Radiology, [address] [place] [address] 07/08/2024 9:30 AM EST Office Visit Cardiology, [facility] 132 [facility] [place] [address] Divya Haskins CRNP [address] [facility] [place] [address] 07/18/2024 10:00 AM EST Office Visit Rheumatology [address] [place] [address] [place] Connelly CRNP [address] [place] [address] [place] [address] 10/21/2024 9:30 AM EDT [facility] 132 [facility] [place] [address] 10/24/2024 10:40 AM EDT Office Visit Dermatology [facility], [place] [address] [facility] [place] [address] Jacquelin Muñoz PA-C 3[address] [facility] [place] [address] Pending Results Name Type Priority Associated Diagnoses Date /Time CREATININE Lab Routine Bladder mass 01/11/2024 3:54 PM EDT Scheduled Orders Name Type Priority Associated Diagnoses Orde r Schedule CT UROGRAPHY W WO CONTRAST Medical Imaging Routine Bladder mass Expected: 01/11/2024, Expires: 02/09/2025 CREATININE Lab Routine Bladder mass Expected: 01/11/2024, Expires: 01/10/2025 CYSTOSCOPY Procedures Routine Abnormal CT scan, bladder Bladder mass Mass of bladder [N32.89] Ordered: 01/11/2024 Scheduled Procedures Name Priority Associated Diagnoses Date/Ti me CYSTOURETHROSCOPY WITH FULGU RATION MEDIUM BLADDER TUMOR Abnormal CT scan, bladder Bladder mass 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 Abnormal CT scan, bladder Bladder mass Health Maintenance Due Date Last Done Comments Zoster Vaccines (1 of 2) 12/22/1987 DTaP,Tdap,and Td Vaccines (1 - Tdap) 12/27/2009 12/26/2009, 12/26/2009 *ADVANCE DIRECTIVE NOT ON FILE 02/02/2022 COVID-19 Vaccine ( season) 2023 10/23/2020, 10/02/2020 *BISPHONATE OR OTHER ACCEPTABLE MEDICATION NEEDED FOR OSTEOPOROSIS (REFER TO SMARTSET #1146) 12/18/2023 Influenza Vaccine (FLU shot) (Season Ended) 2024 DXA Scan 06/10/2024 06/10/2022, 08/0 09/2019, 02/09/2018, Additional history exists Depression Monitoring 12/16/2024 12/17/2023 O2 ASSESSMENT COMPLETED IN PAST YEAR FOR COPD 12/22/2024 12/23/2023 Pneumococcal Vaccine: 65+ Years Completed 08/30/2014, 12/26/2009 Alpha-1 Antitrypsin Completed 08/20/2021 VITAMIN D LEVEL ONCE IN A LIFETIME-USE SMARTSET# [id number] Completed 07/16/2023, 05/27/2021, 05/18/2020, Additional history exists GARDASIL-HPV IMMUNIZATION SERIES Aged Out No longer eligible based on patient's age to complete this topic Hepatitis B Aged Out No longer eligi ble based on patient's age to complete this topic MENINGOCOCCAL (MENACTRA/MENVEO) Aged Out No longer eligible based on patient's age to complete this topic documented as of this encounter Medical Devices Not on filedocumented as of this encounter Visit Diagnoses Diagnosis Abnormal CT scan, bladder- Primary Nonspecific (abnormal) findings on radiological and other examination of genitourinary organs Bladder mass Other specified disorders of bladder Mass of bladder [N32.89] Other specified disorders of bladder documented in this encounter Care Teams Aircraft Electronics Technical Officer Relationship Specialty Start Date End Date Ciro Zayas MD [address] [place] [address] PCP - General Internal Medicine 09/20/10 documented as of this encounter
--- OUTSIDE RECORDS SUMMARY | 2024-04-08 06:47 | External Medical Summary | Summary of Care ---
Author Name Unknown Organization [facility] Address [address] [place] [address] Phone [phone] Care Team Providers Care Harness And Bag Inspector Name Role Phone Ciro Zayas MD Primary Care Provider + Encounter Details Date Type Department Care Team (Late st Contact Info) Description 01/15/2024 2:30 PM EDT Nurse Only Urology, [place] [facility] [address] [facility] [place] [address] [facility] Nurse Urology [facility] [address] [facility] [place] [address] Allergies No known active allergiesdocumented as of this encounter (statuses as of 01/15/2024) Medications Medication Sig Dispensed Refills Start Date [...] the morning. 30 Tablet 1 01/14/2024 Active Hospital, Clinic, or Other Facility Administered Medication Ordered Dose Route Frequency Start Date End Date Status sodium chloride 0.9 % flush/inj 10 mL 10 mL IV PUSH ONCE 01/15/2024 01/16/2024 Active documented as of this encounter (statuses as of 01/15/2024) Active Problems Problem Noted Date Diagnosed Date [...] -19) 02/26/2022 Senile osteoporosis 12/24/2018 Atherosclerosis of [place] co ronary artery of [place] heart without angina pectoris 05/19/2018 History [...] as of this encounter (statuses as of 01/15/2024) Resolved Problems Problem Noted Date Diagnosed Date [...] as of this encounter (statuses as of 01/15/2024) Immunizations Name Administration Dates Next Due COVID-19 [...] on file documented as of this encounter Nursing Notes * Vania Scott LPN - 01/15/2024 2:15 PM EDT Patient scheduled at [facility] for TURBT, mitomycin with Dr Francisco Beltrán. Date of Surgery: 03/17/24 Medications reviewed. Pt aware to hold multivitamin 7 days prior. No aspirin or NSAIDs 7 days prior. EKG: on file CXR: ordered Labs: on file UAC&S: ordered, to be done 1 week prior to surgery Post op appts needed: 3-5 day TOV, 3 week postop Permit signed at previous office visit with Dr Beltrán Patient verbalizes understanding of pre- and post op instructions. Written instructions given for review at later date. Vania Scott LPN 01/15/2024 documented in this encounter Plan of Treatment Upcoming Encounters Date Type Department Care Team (Latest Contact Info) Description 03/17/2024 12:05 PM EDT Hospital Encounter OR [facility], Operating Room, [facility] - 4th Floor [address] [place] [address] Francisco Beltrán MD [address] [place] [address] 03/17/2024 12:05 PM EDT - 03/17/2024 1:23 PM EDT Surgery OR [facility], Operating Room, [facility] - 4th Floor [address] [place] [address] Francisco Beltrán MD [address] [place] [address] CYSTOURETHROSCOPY WITH FULGURATION MEDIUM BLADDER TUMOR 03/22/2024 9:30 AM EDT Nurse Only Urology, [facility] [address] [place] [address] Michael Nurse Urology Ma[place] [address] [place] [address] 04/04/2024 3:45 PM EDT Office Visit Urology Teresa Frias [address] [place] [address] Francisco Beltrán MD [address] [place] [address] 05/16/2024 9:40 AM EDT Office Visit General Internal Medicine [facility] 200 [facility] [place] [address] Ciro Zayas MD [address] [place] [address] 06/13/2024 9:30 AM EST Imaging Radiology, [place] [address] [facility] [place] [address] 07/08/2024 9:30 AM EST Office Visit Cardiology, [facility] 132 [place] [address] Divya Haskins CRNP 400 [facility] [place] [address] 07/18/2024 10:00 AM EST Office Visit Rheumatology [address] [place] [address] [place] Connelly CRNP [address] [facility] [place] [address] 10/21/2024 9:30 AM EDT Imaging [facility]ascular Lab, [facility] 132 [facility] [place] [address] 10/24/2024 10:40 AM EDT Office Visit Dermatology [facility], [place] [address] [facility] [place] [address] Jacquelin Muñoz PA-C [facility] [facility] [place] [address] Pending Results Name Type Priority Associated Diagnoses Date /Time XR CHEST 2 VIEWS Medical Imaging Routine Bladder mass 01/15/2024 3:28 PM EDT Scheduled Orders Name Type Priority Associated Diagnoses Orde r Schedule CULTURE, URINE, QUANTITATIVE Lab Routine Bladder mass Unspecified abnormal findings in urine Expected: 03/10/2024, Expires: 01/14/2025 Scheduled Procedures Name Priority Associated Diagnoses Date/Ti hi CYSTOURETHROSCOPY WITH FULGURATION MEDIUM BLADDER TUMOR Abnormal [...] (Season Ended) 2024 DXA Scan 06/10/2024 06/10/2022, 0809/2019, 02/09/2018, Additional history exists Depression Monitoring 12/16/2024 12/17/2023 O2 ASSESSMENT COMPLETED IN PAST YEAR FOR COPD 12/22/2024 12/23/2023 Pneumococcal Vaccine: 65+ Years Completed 08/30/2014, 12/26/2009 Alpha-1 Antitrypsin Completed 08/20/2021 VITAMIN D LEVEL ONCE IN A LIFETIME-USE SMARTSET# [id number] Completed 07/16/2023, 05/27/2021, 05/18/2020, Additional history exists [...] mass Other specified disorders of bladder Bladder mass- Primary Other specified disorders of bladder Unspecified abnormal findings in urine Abnormal CT scan, bladder Nonspecific (abnormal) findings on radiological and other examination of genitourinary organs Bladder mass Other specified disorders of bladder documented in this encounter Care Teams Harness And Bag Inspector Relationship Specialty Start Date End Date Ciro Zayas MD [address] [place] [address] PCP - General Internal Medicine 09/20/10 documented as of this encounter
--- OUTSIDE RECORDS SUMMARY | 2024-04-08 06:47 | External Medical Summary ---
Author Name Unknown Address Unknown Organization [id number]:[facility] [place] [facility] [address] [place] [address] Laboratory Report Ordering Provider Test Date Status STEPHANIE URENA 01/11/2024 15:54:43 Final Observation Date Value Abnormality Reference (Units ) Status Creatinine 01/11/2024 15:54:43 0.8 0.6-1.2 (mg/dL) Final Glomerular filtration rate/1.73 sq M.predicted [Volume Rate/Area] in Serum, Plasma or Blood by Creatinine-based formula (CKD-EPI) 01/11/2024 15:54:43 86 >=60 (mL/min) Final eGFR is calculated based on the CKD-EPI 2020 equation Performing Location [facility] [place] [address] [place] [address]
--- OUTSIDE RECORDS SUMMARY | 2024-04-08 06:47 | External Medical Summary | Summary of Care ---
Author Name Unknown Organization [facility] Address [address] [facility] [place] [address] Phone [phone] Care Team Providers Care Entry Level Paralegal Name Role Phone Ciro Zayas MD Primary Care Provider + Reason for Visit * Reason Comments Outpatient Testing Encounter Details Date Type Department Care Team (Late st Contact Info) Description 01/11/2024 4:00 PM EDT Laboratory Laboratory, [facility] 132 [facility] [place] [address] [facility] [address] [place] [address] Bladder mass Allergies No known active allergiesdocumented as of [...] -19) 02/26/2022 Senile osteoporosis 12/24/2018 Atherosclerosis of [place] co ronary artery of [place] heart without angina pectoris 05/19/2018 History of [...] mRNA, LNP-s, No Pre serve, 2-Dose Series ([employer] [place] [employer]) 10/23/2020,10/02/2020 Pneumococcal Conjugate Vacc, 13 Valent (Prevnar) [...] Description 01/15/2024 1:45 PM EDT Imaging Radiology [address] [place] [address] 01/15/2024 2:30 PM EDT Nurse Only Urology, [facility] 132 [facility] [place] [address] [place] Nurse Urology [facility] 132 [facility] [place] [address] 03/31/2024 10:00 AM EDT Office Visit Urology Teresa Frias [address] [address] [place] [address] Francisco Beltrán MD [address] [place] [address] [place] [address] 05/16/2024 9:40 AM EDT Office Visit General Internal Medicine [facility] 200 [place] [address] Ciro Zayas MD 200 [facility] [place] [address] 06/13/2024 9:30 AM EST Imaging Radiology, [address] [place] [address] 07/08/2024 9:30 AM EST Office Visit Cardiology, [address] [place] [address] Divya Haskins CRNP [address] [place] [address] [place] [address] 07/18/2024 10:00 AM EST Office Visit Rheumatology [place] [address] [facility] [place] [address] [place] Connelly CRNP [address] [place] [address] [place] [address] 10/21/2024 9:30 AM EDT Imaging [facility] Lab, [facility] 132 [facility] [place] [address] 10/24/2024 10:40 AM EDT Office Visit Dermatology [facility], [place] [address] [place] [address] Jacquelin Muñoz PA-C [address] [facility] [place] [address] Pending Results Name Type Priority Associated Diagnoses Date /Time CREATININE Lab Routine Bladder mass 01/11/2024 3:54 PM EDT Scheduled Procedures Name Priority Associated Diagnoses [...] D LEVEL ONCE IN A LIFETIME-USE SMARTSET# [id number] Completed 07/16/2023, 05/27/2021, 05/18/2020, Additional history exists [...] of this encounter Visit Diagnoses Diagnosis Bladder mass Other specified disorders of bladder documented in this encounter Care Teams Entry Level Paralegal Relationship Specialty Start Date End Date Ciro Zayas MD [address] [facility] [place] [address] PCP - General Internal Medicine 09/20/10 documented as of this encounter
--- OUTSIDE RECORDS SUMMARY | 2024-04-08 06:47 | External Medical Summary ---
Author Name Unknown Address Unknown Organization [id number]:[facility] [place] [address] Laboratory Report Ordering Provider Test Date Status PURVI WARD 01/22/2024 08:38:21 Final Observation Date Value Abnormality Reference (Units ) Status SYNC LEUKOCYTES IN BLOOD BY AUTOMATED COUNT 01/22/2024 08:38:21 7.84 4.00-10.80 (K/uL) Final Segs 01/22/2024 08:38:21 66.8 40.0-75.0 (%) Final Lymphs % 01/22/2024 08:38:21 18.5 18.0-42.0 (%) Final Monos 01/22/2024 08:38:21 10.6 1.0-11.0 (%) Final Eosinophils 01/22/2024 08:38:21 3.3 0.0-6.0 (%) Final Basos 01/22/2024 08:38:21 0.8 0.0-2.0 (%) Final Absolute Segs 01/22/2024 08:38:21 5.24 1.80-7.70 (K/uL) Final Lymphs, absolute 01/22/2024 08:38:21 1.45 1.00-4.80 (K/ul) Final Monos, Abs 01/22/2024 08:38:21 0.83 0.00-1.10 (K/uL) Final Eos, Abs 01/22/2024 08:38:21 0.26 0.00-0.70 (K/uL) Final Basos, Abs 01/22/2024 08:38:21 0.06 0.00-0.20 (K/uL) Final Performing Location [facility] [place] [address]
--- OUTSIDE RECORDS SUMMARY | 2024-04-08 06:47 | External Medical Summary | Summary of Care ---
Author Name Unknown Organization [facility] Address [address] [place] [address] Phone [phone] Care Team Providers Care Structural Steel Fitter Name Role Phone Ciro Zayas MD Primary Care Provider + Reason for Visit * Reason Comments Follow Up Encounter Details Date Type Department Care Team (Late st Contact Info) Description 01/05/2024 8:30 AM EDT Office Visit Cardiology, [facility] 132 [facility] [place] [address] Divya Haskins CRNP [address] [place] [address] NSVT (nonsustained ventricular tachycardia) (HCC)*; Junctional rhythm; Coronary artery disease involving bishop paiute coronary artery of bishop pai[place] heart without angina pectoris; PAT (paroxysmal atrial tachycardia) (HCC); Dyslipidemia, goal LDL below 70 Allergies No known active allergiesdocumented as of [...] Oral Tablet (Zoloft)Indications: JAN (generalized anxiety disorder) 0.5 pill by mouth [...] 01/01/2024 Active LORazepam 0.5 MG Oral Tablet (Ativan)Indications: JAN (generalized anxiety disorder) Take 1 Tablet by mouth every 8 hours as needed for Anxiety. 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 06/23/2023 NSVT (nonsustained ventricular tachycardia) 11/2022 COPD, group D, by GOLD 2017 classification 11/24 Overview: Per COPD GOLD Classification AAA (abdominal aortic aneurysm) 09/24/2022 PVD (peripheral vascular disease) 09/23/2022 History of pulmonary embolism 02/26/2022 History of cigarette smoking 02/26/2022 History of 2019 novel coronavirus disease (COVID -19) 02/26/2022 Senile osteoporosis 12/24/2018 Atherosclerosis of [place] co ronary artery of bishop [place] heart without angina pectoris 05/19/2018 History of [...] organic origin 07/10/2009 Bradycardia 12/01/2008 Beta-blockers contraindicated YUYR inhibitor intolerance Overview: low blood pressure documented [...] Sign Reading Time Taken Comments Blood Pressure 118/56 01/05/2024 8:36 AM EDT Pulse 64 01/05/2024 8:36 AM EDT Temperature - - Respiratory Rate 16 01/05/2024 8:36 AM EDT Oxygen Saturation - - Inhaled Oxygen Concentration - - Weight 59 kg (130 lb) 01/05/2024 8:36 AM EDT Height - - Body Mass Index 20.36 12/23/2023 11:17 AM EDT documented in this encounter Progress Notes * Mylene Rodriguez DO - 01/11/2024 9:21 AM EDT I have reviewed the advanced practitioner's documentation on the date of service referenced in note, and I agree with, and take responsibility for the plan of care. Pt returns to EP for routine 6 month f/u due to arrhythmias Pt was hospitalized in November due to GIB from an ulcer; during this hospitalization a bladder mass wasfound-he is for a cystoscopy the end of the month No longer having CASTILLO and dizziness with H/H better Is reporting some anxiety and sleep problems from it Restart ASA after cystoscopy Continue lipitor -avoid AVN blockers given bradycardia EP f/u 6 months Mylene Rodriguez DO Department of Cardiology [facility] Cardiology [place] [address] documented in this encounter Nursing Notes * Sheila Asif LPN - 01/05/2024 8:35 AM EDT Examination Room: 10 Name: Juan Vazquez Date of : 1935 Reason for Visit: Follow up Problems/Concerns: Denies cardiac complaint Interim Hosp(s): 12/02-12/07 low H&H, found "ulcer" that was "healed" 01/10 procedures for 'bladder mass' that was found incidentally per pt while in hospital. Chest Pain/SOB: denies MyChart Discussed: ALREADY ACTIVE Patient was instructed to not get up on the exam table until directed and assisted by their provider; patient is to remain seated in the chair/ wheelchair/ exam table for fall prevention and safety reasons. Patient is aware staff will assist stepping down off exam table with personnel. documented in this encounter Plan of Treatment Upcoming Encounters Date Type Department Care Team (Late st Contact Info) Description 01/11/2024 2:00 PM EDT Procedure Only Urology, [facility] [place] [address] Francisco Beltrán MD 27 [facility] 270 [facility] [place] [address] 05/16/2024 9:40 AM EDT Office Visit General Internal Medicine [facility] 200 [facility] [place] [address] Ciro Zayas MD 200 [facility] [place] [address] 06/13/2024 9:30 AM EST Imaging Radiology, [address] [place] [address] 07/08/2024 9:30 AM EST Office Visit Cardiology, [facility] 132 [place] [address] Divya Haskins CRNP [address] [place], [place] [address] [address] 07/18/2024 10:00 AM EST Office Visit Rheumatology [address] [place] [address] Jerad Connelly CRNP [address] [place] [address] [place] [address] 10/21/2024 9:30 AM EDT Imaging Vascular Lab, [facility] 2nd [facility] 132 [facility] [place] [address] 10/24/2024 10:40 AM EDT Office Visit Dermatology [facility] [place] [address] [place] [address] Jacquelin Muñoz PA-C 3[address] [facility] [place] [address] Health Maintenance Due Date Last Done Comments Zoster Vaccines (1 of 2) 12/22/1987 DTaP,Tdap,and Td Vaccines (1 - Tdap) 12/27/2009 12/26/2009, 12/26/2009 *ADVANCE DIRECTIVE NOT ON FILE 02/02/2022 COVID-19 Vaccine (3 2022- season) 2023 10/23/2020, 10/02/2020 *BISPHONATE OR [...] D LEVEL ONCE IN A LIFETIME-USE SMARTSET# [id number] Completed 07/16/2023, 05/27/2021, 05/18/2020, Additional history exists [...] as of this encounter Visit Diagnoses Diagnosis NSVT (nonsustained ventricular tachycardia) (HCC)- Primary Paroxysmal ventricular tachycardia Junctional rhythm Other specified cardiac dysrhythmias Coronary artery disease involving bishop [place] coronary artery of bishop [place] heart without angina pectoris PAT (paroxysmal atrial tachycardia) (HCC) Paroxysmal supraventricular tachycardia Dyslipidemia, goal LDL below 70 Other and unspecified hyperlipidemia documented in this encounter Care Teams Structural Steel Fitter Relationship Specialty Start Date End Date Ciro Zayas MD [address] [place] [address] PCP - General Internal Medicine 09/20/10 documented as of this encounter
--- OUTSIDE RECORDS SUMMARY | 2024-04-08 06:47 | External Medical Summary | Summary of Care ---
Author Name Unknown Organization [facility] Address [address] [place] [address] Phone [phone] Care Team Providers Care Marble Rubber Name Role Phone Ciro Zayas MD Primary Care Provider + Reason for Referral * Precert (Within 10 days (routine)) - Authorized Specialty Diagnoses / Procedures Referred By Contac t Referred To Contact Radiology Diagnoses Bladder mass Procedures CT UROGRAPHY W WO CONTRAST Francisco Beltrán MD [address] [place] [address] [place] [address] Referral ID Status Reason Start Date Expiration Date V isits Requested Visits Authorized [id number] Authorized 01/11/2024 999 999 Reason for Visit * Reason Comments NEW PATIENT * Evaluate & Treat - Unlimited Visits (Within 10 days (routine)) - Authorized Specialty Diagnoses / Procedures Referred By Contac t Referred To Contact Urology Diagnoses Mass of bladder Ronen Hubbard DO [address] [place] [id number] Referral ID Status Reason Start Date Expiration Date Visits Requested Visits Authorized [id number] Authorized Specialty Services Required 12/09/2023 999 999 Encounter Details Date Type Department Care Team (Latest Contact Info) Description 01/11/2024 2:00 PM EDT Procedure Only Urology, [facility] 132 [facility] [place] [address] Francisco Beltrán MD [address] [place] [address] [place] [address] scan, bladder*; Bladder mass; Mass of bladder [N32.89] Allergies No known active allergiesdocumented as of this encounter (statuses as of 01/12/2024) Medications Medication Sig Dispensed Refills Start Date [...] bladder 1 Tablet OR ONCE 01/11/2024 01/12/2024 Ended documented as of this encounter (statuses as of 01/12/2024) Active Problems Problem Noted Date Diagnosed Date [...] -19) 02/26/2022 Senile osteoporosis 12/24/2018 Atherosclerosis of cherokee co ronary artery of cherokee heart without angina pectoris 05/19/2018 History of [...] as of this encounter (statuses as of 01/12/2024) Resolved Problems Problem Noted Date Diagnosed Date [...] as of this encounter (statuses as of 01/12/2024) Immunizations Name Administration Dates Next Due COVID-19 [...] Beltrán MD - 01/11/2024 2:00 PM EDT [id number] PCP: CIRO ZAYAS [place], [place] [id number] Juan Vazquez is a 88 year old [...] performed by Shelly Phillip MD at ENDOSCOPY [facility] COLORECTAL CANCER SCREEN; NOT AT RISK 04/17/09 done diverticulosis,a single non-bleeding colonic angioectasia DENTAL SURGERY PROCEDURE NEC 07/20/2013 EGD, FLEXIBLE, DIAGNOSTIC 06/19/2021 duodenal diverticulum,gastric heterotopia, reflux esophagitis / ESOPHAGOGASTRODUODENOSCOPY (EGD), FLEXIBLE, TRANSORAL, DIAGNOSTIC performed by Shelly Phillip MD at ENDOSCOPY [facility] 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HCC) 2003 Beta-blockers contraindicated Bradycardia 12/01/2008 COPD (chronic obstructive pulmonary disease) ([facility]) COPD, mild ([facility]) 04/05/2012 Coronary atherosclerosis 10/06/2008 Dyslipidemia, goal LDL below 70 10/02/2011 Gout 05/31/2013 History of 2019 novel coronavirus disease (COVID-19) 02/26/2022 History of alcohol dependence ([facility]) 03/05/2017 History of cigarette smoking 02/26/2022 History of pulmonary embolism 02/26/2022 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 PAD (peripheral artery disease) ([facility]) 09/23/2022 Personal history of alcoholism ([facility]) sober since 10/1978 Patient Active Problem List Diagnosis Bradycardia Impotence of organic origin Restless leg syndrome Beta-blockers contraindicated YURY inhibitor intolerance Dyslipidemia, goal LDL below 70 History of alcohol dependence ([facility]) History of nonmelanoma skin cancer Varicose vein of leg History of gout Atherosclerosis of cherokee coronary artery of cherokee heart without angina pectoris Senile osteoporosis History of pulmonary embolism History of cigarette smoking History of 2019 novel coronavirus disease (COVID-19) PVD (peripheral vascular disease) ([facility]) AAA (abdominal aortic aneurysm) ([facility]) COPD, group D, by GOLD 2017 classification ([facility]) Frequent PVCs NSVT (nonsustained ventricular tachycardia) ([facility]) Aortic ectasia, abdominal (HCC) Constitutional: (-) fever and (-) chills ENT: (-) stridor Male : see HPI Musculoskeletal: (+) joint pain Neurology: (-) negative: no focal neurologic defect Psychiatry: (+) depression Physical Exam Nursing note reviewed. Exam conducted with a cut roll machine offbearer present. Constitutional: General: He is not in [...] for the procedure. A well lubricated 16 Tu[place]uan flexible cystoscope was introduced through the meatus [...] the procedure well without complications or difficulties. Orange Peel Operator was present for entire pro cedure. Perioperative Bactrim was provided. Impression/Plan: 88-year-old male with new diagnosis of urothelial malignancy of the bladder. Findings reviewed with the patient. Will obtain a CT urogram for more accurate staging. Findings and pathophysiology of urothelial malignancy reviewed. Will proceed with initial TURBT and instillation of mitomycin-C. Seen the patient's cardiac history proceeded [facility] for intervention. Risks and benefits, expected [...] 01/15/2024 1:45 PM EDT Imaging Radiology [facility] 1st Floor, [place] 132 [facility] [place] [address] 01/15/2024 2:30 PM EDT Nurse Only Urology, [facility] 132 [facility] [place] [address] Michael, Nurse Urology [address] [place] [address] 03/17/2024 Hospital Encounter OR [facility], Operating Room, [facility] - 4th Floor [address] [place] [address] Francisco Beltrán MD [address] [place] [address] [place] [address] 03/31/2024 10:00 AM EDT Office Visit Urology Teresa Frias [address] [place] [address] [place] [address] Francisco Beltrán MD [address] [place] [address] [place] [address] 05/16/2024 9:40 AM EDT Office Visit General Internal Medicine [facility] 200 [facility] [place] [address] Ciro Zayas MD 200 [facility] [place] [address] 06/13/2024 9:30 AM EST Imaging Radiology, [address] [place] [address] 07/08/2024 9:30 AM EST Office Visit Cardiology, [address] [address] Divya Haskins CRNP [address] [place] [address] 07/18/2024 10:00 AM EST Office Visit Rheumatology [address] [place] [address] Jerad Connelly CRNP [address] [place] [address] [place] [address] 10/21/2024 9:30 AM EDT Imaging Vascular Lab, [facility] 2nd Floor, [place] [facility] [address] 10/24/2024 10:40 AM EDT Office Visit Dermatology [facility] [place] [address] [place] [address] Jacquelin Muñoz PA-C [address] [facility] [address] Scheduled Orders Name Type Priority Associated Diagnoses Orde r Schedule CT UROGRAPHY W WO CONTRAST Medical Imaging Routine Bladder mass Expected: 01/11/2024, Expires: 02/09/2025 CYSTOSCOPY Procedures Routine Abnormal CT scan, bladder [...] D LEVEL ONCE IN A LIFETIME-USE SMARTSET# [id number] Completed 07/16/2023, 05/27/2021, 05/18/2020, Additional history exists [...] Not on filedocumented as of this encounter Results * CREATININE (01/11/2024 3:54 PM EDT) Creatinine 0.8 0.6 - 1.2 mg/dL 01/12/2024 1:35 AM EDT [facility] Estimated Glomerular Filtration Rate 86 >=60 mL/min 01/12/2024 1:35 AM EDT [facility] Comment:eGFR is calculated b ased on the CKD-EPI 2020 equation Blood Venous blood specimen / Unknown Venipuncture / Unknown 01/11/2024 3:54 PM EDT 01/11/2024 3:54 PM EDT Francisco Beltrán MD LAB BLOOD ORDERA BLES Performing Organization Address City/State/[facility] Co de Phone Number LABORATORY [facility] [address] [place] [address] documented in this encounter Visit Diagnoses Diagnosis Abnormal CT scan, bladder- Primary Nonspecific (abnormal) findings on radiological and other examination of genitourinary organs Bladder mass Other specified disorders of bladder Mass of bladder [N32.89] Other specified disorders of bladder Abnormal CT scan, bladder Nonspecific (abnormal) findings on radiological and other examination of genitourinary organs Bladder mass Other specified disorders of bladder documented in this encounter Care Teams Marble Rubber Relationship Specialty Start Date End Date Ciro Zayas MD [address] [place] [address] PCP - General Internal Medicine 09/20/10 documented as of this encounter
--- OUTSIDE RECORDS SUMMARY | 2024-04-08 06:47 | External Medical Summary | Summary of Care ---
Author Name Unknown Organization [facility] Address [address] [place] [address] Phone [phone] Care Team Providers Care Green Inspector Name Role Phone Ciro Zayas MD Primary Care Provider + Reason for Referral * Precert (Within 10 days (routine)) - Authorized Specialty Diagnoses / Procedures Referred By Contac t Referred To Contact Radiology Diagnoses Bladder mass Procedures CT UROGRAPHY W WO CONTRAST Francisco Beltrán MD [address] [place] [address] [place] [address] Referral ID Status Reason Start Date Expiration Date V isits Requested Visits Authorized [id number] Authorized 01/11/2024 999 999 Reason for Visit * Reason Comments NEW PATIENT * Evaluate & Treat - Unlimited Visits (Within 10 days (routine)) - Authorized Specialty Diagnoses / Procedures Referred By Contac t Referred To Contact Urology Diagnoses Mass of bladder Ronen Hubbard DO [address] [place] [id number] Referral ID Status Reason Start Date Expiration Date Visits Requested Visits Authorized [id number] Authorized Specialty Services Required 12/09/2023 999 999 Encounter Details Date Type Department Care Team (Latest Contact Info) Description 01/11/2024 2:00 PM EDT Procedure Only Urology, [facility] 132 [facility] [place] [address] Francisco Beltrán MD [address] [...] -19) 02/26/2022 Senile osteoporosis 12/24/2018 Atherosclerosis of viejas co ronary artery of viejas heart without angina pectoris 05/19/2018 History of [...] Beltrán MD - 01/11/2024 2:00 PM EDT [id number] PCP: CIRO ZAYAS [place], [place] [id number] Juan Vazquez is a 88 year old [...] performed by Shelly Phillip MD at [facility]COPY [facility] COLORECTAL CANCER SCREEN; NOT AT RISK 04/17/09 done diverticulosis,a single non-bleeding colonic angioectasia DENTAL SURGERY PROCEDURE NEC 07/20/2013 EGD, FLEXIBLE, DIAGNOSTIC 06/19/2021 duodenal diverticulum,gastric heterotopia, reflux esophagitis / ESOPHAGOGASTRODUODENOSCOPY (EGD), FLEXIBLE, TRANSORAL, DIAGNOSTIC performed by Shelly Phillip MD at [facility] 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HCC) 2003 Beta-blockers contraindicated Bradycardia 12/01/2008 COPD (chronic obstructive pulmonary disease) ([facility]) COPD, mild ([facility]) 04/05/2012 Coronary atherosclerosis 10/06/2008 Dyslipidemia, goal LDL below 70 10/02/2011 Gout 05/31/2013 History of 2019 novel coronavirus disease (COVID-19) 02/26/2022 History of alcohol dependence ([facility]) 03/05/2017 History of cigarette smoking 02/26/2022 History of pulmonary embolism 02/26/2022 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 PAD (peripheral artery disease) ([facility]) 09/23/2022 Personal history of alcoholism ([facility]) sober since 10/1978 Patient Active Problem List Diagnosis Bradycardia Impotence of organic origin Restless leg syndrome Beta-blockers contraindicated YURY inhibitor intolerance Dyslipidemia, goal LDL below 70 History of alcohol dependence ([facility]) History of nonmelanoma skin cancer Varicose vein of leg History of gout Atherosclerosis of viejas coronary artery of viejas heart without angina pectoris Senile osteoporosis History of pulmonary embolism History of cigarette smoking History of 2019 novel coronavirus disease (COVID-19) PVD (peripheral vascular disease) ([facility]) AAA (abdominal aortic aneurysm) ([facility]) COPD, group D, by GOLD 2017 classification ([facility]) Frequent PVCs NSVT (nonsustained ventricular tachycardia) ([facility]) Aortic ectasia, abdominal (HCC) Constitutional: (-) fever and (-) chills ENT: (-) stridor Male : see HPI Musculoskeletal: (+) joint pain Neurology: (-) negative: no focal neurologic defect Psychiatry: (+) depression Physical Exam Nursing note reviewed. Exam conducted with a gift wrapper present. Constitutional: General: He is not in [...] for the procedure. A well lubricated 16 Q[place] flexible cystoscope was introduced through the meatus [...] the procedure well without complications or difficulties. Box Toe Flanger Stitchdowns was present for entire pro cedure. Perioperative Bactrim was provided. Impression/Plan: 88-year-old male with new diagnosis of urothelial malignancy of the bladder. Findings reviewed with the patient. Will obtain a CT urogram for more accurate staging. Findings and pathophysiology of urothelial malignancy reviewed. Will proceed with initial TURBT and instillation of mitomycin-C. Seen the patient's cardiac history proceeded [facility] for intervention. Risks and benefits, [...] 01/15/2024 1:45 PM EDT Imaging Radiology [facility] 1st Floor, [place] 132 [facility] [place] [address] 01/15/2024 2:30 PM EDT Nurse Only Urology, [facility] 132 [facility] [place] [address] Michael, Nurse Urology [address] [place] [address] 03/17/2024 Hospital Encounter OR [facility], Operating Room, [facility] - 4th Floor [address] [place] [address] Francisco Beltrán MD [address] [place] [address] [place] [address] 03/31/2024 10:00 AM EDT Office Visit Urology Teresa Frias [address] [place] [address] [place] [address] Francisco Beltrán MD [address] [place] [address] [place] [address] 05/16/2024 9:40 AM EDT Office Visit General Internal Medicine [facility] 200 [place] [address] Ciro Zayas MD 200 [facility] [place] [address] 06/13/2024 9:30 AM EST Imaging Radiology, [address] [place] [address] 07/08/2024 9:30 AM EST Office Visit Cardiology, [address] [address] Divya Haskins CRNP [address] [place] [address] 07/18/2024 10:00 AM EST Office Visit Rheumatology [address] [place] [address] [place] Connelly CRNP [address] [place] [address] [place] [address] 10/21/2024 9:30 AM EDT Imaging Vascular Lab, [facility] 2nd Floor, [place] 132 [facility] [address] 10/24/2024 10:40 AM EDT Office Visit Dermatology [facility], [place] [address] [place] [address] Jacquelin Muñoz PA-C [facility] [facility] [place] [facility] [address] Scheduled Orders Name Type Priority Associated Diagnoses [...] D LEVEL ONCE IN A LIFETIME-USE SMARTSET# [id number] Completed 07/16/2023, 05/27/2021, 05/18/2020, Additional history exists [...] LAB BLOOD ORDERA BLES Performing Organization Address City/State/[facility] Co de Phone Number LABORATORY [facility] [address] [place] [address] documented in this encounter Visit Diagnoses Diagnosis [...] bladder documented in this encounter Care Teams Green Inspector Relationship Specialty Start Date End Date Ciro Zayas MD [address] [place] [address] PCP - General Internal Medicine 09/20/10 documented as of this encounter
--- OUTSIDE RECORDS SUMMARY | 2024-04-08 06:47 | External Medical Summary ---
Author Name Unknown Address Unknown Organization K01:LABORATORY [facility] - [address] [place] [address] Laboratory Report Ordering Provider Test Date Status PURVI WARD 01/22/2024 08:38:21 Final Observation Date Value Abnormality Reference (Units ) Status Iron 01/22/2024 08:38:21 235 Above high normal 45-176 (ug/dL) Final Iron-binding capacity 01/22/2024 08:38:21 291 250-425 (ug/dL) Final Transferrin Sat % 01/22/2024 08:38:21 81 Above high normal 15-55 (%) Final Performing Location LABORATORY [facility] - [address] [place] [address]
--- OUTSIDE RECORDS SUMMARY | 2024-04-08 06:48 | External Medical Summary | Summary of Care ---
Author Name Unknown Organization [facility] Address [address] [facility] [place] [address] Phone [phone] Care Team Providers Care Hardwood Floor Refinisher Name Role Phone Ciro Zayas MD Primary Care Provider + Encounter Details Date Type Department Care Team (Late st Contact Info) Description 12/03/2023 Result Scan Unspecified Department <No scans attached> Allergies No known active allergiesdocumented as of this encounter (statuses as of 01/07/2024) Medications Medication Sig Dispensed Refills Start Date [...] EVERY DAY 90 Tablet 3 10/23/2023 Active documented as of this encounter (statuses as of 01/07/2024) Active Problems Problem Noted Date Diagnosed Date [...] -19) 02/26/2022 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 [facility] [address] [place] [address] 05/16/2024 9:40 AM EDT Office Visit General Internal Medicine [facility] 200 [facility] [place] [address] Ciro Zayas MD 200 [facility] [place] [address] 06/13/2024 9:30 AM EST Imaging Radiology, [address] [place] [address] 07/08/2024 9:30 AM EST Office Visit Cardiology, [address] [place] [address] Divya Haskins CRNP 400 [facility] [place] [address] 07/18/2024 10:00 AM EST Office Visit Rheumatology [address] [place] [address] Jerad Connelly CRNP [address] [place] [address] [place] [address] 10/21/2024 9:30 AM EDT [facility] 132 [facility] [place] [address] 10/24/2024 10:40 AM EDT Office Visit Dermatology [facility] [place] 3[address] [facility] [place] [address] Jacquelin Muñoz PA-C [address] [facility] [place] [address] Health Maintenance Due Date Last Done Comments Zoster Vaccines (1 of 2) 12/22/1987 DTaP,Tdap,and Td Vaccines (1 - Tdap) 12/27/2009 12/26/2009, 12/26/2009 *ADVANCE DIRECTIVE NOT ON FILE 02/02/2022 COVID-19 Vaccine (3 - season) 2023 10/23/2020, 10/02/2020 *BISPHONATE OR OTHER ACCEPTABLE MEDICATION NEEDED FOR OSTEOPOROSIS (REFER TO SMARTSET #1146) 12/18/2023 Influenza Vaccine (FLU shot) (Season Ended) 2024 DXA Scan 06/10/2024 06/10/2022, 09/2019, 02/09/2018, Additional history exists Depression Monitoring 12/16/2024 12/17/2023 O2 ASSESSMENT COMPLETED IN PAST YEAR FOR COPD 12/22/2024 12/23/2023 Pneumococcal Vaccine: 65+ Years Completed 08/30/2014, 12/26/2009 Alpha-1 Antitrypsin Completed 08/20/2021 VITAMIN D LEVEL ONCE IN A LIFETIME-USE SMARTSET# [id number] Completed 07/16/2023, 05/27/2021, 05/18/2020, Additional history exists [...] Procedure Name Priority Date/Time Associated Diagnosis Comments EKG SCANNED RESULT 12/03/2023 documented in this encounter Results * EKG SCANNED RESULT (12/03/2023) 12/03/2023 No Physician Data Unknown EKG documented in this encounter Care Teams Hardwood Floor Refinisher Relationship Specialty Start Date End Date Ciro Zayas MD [address] [place] [address] PCP - General Internal Medicine 09/20/10 documented as of this encounter
--- OUTSIDE RECORDS SUMMARY | 2024-04-08 06:48 | External Medical Summary | Summary of Care ---
Author Name Unknown Organization [facility] Address [address] [place] [address] Phone [phone] Care Team Providers Care Technology Auditor Name Role Phone Ciro Loja MD Primary Care Provider + Reason for Visit * Reason Onset Date Comments Medication Refill 01/05/2024 Encounter Details Date Type Department Care Team (Late st Contact Info) Description 01/05/2024 Refill Care Coordination and Integration [address] [place], [place] [id number] Chari Millard, RN [address] [place] [address] JAN (generalized anxiety disorder) Allergies No known active allergiesdocumented as of this encounter (statuses as of 01/06/2024) Medications Medication Sig Dispensed Refills Start Date [...] needed for Anxiety. 21 Tablet 01/05/2024 Active LORazepam 0.5 MG Oral Tablet (Ativan)Indications: JAN (generalized anxiety disorder) Take 1 Tablet by mouth every 8 hours as needed for Anxiety. 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 Authorizing Provider: CIRO LOJA * Telephone Encounter - Ciro Loja MD - 01/05/2024 12:44 PM EDT I have reviewed the patients controlled substance dispensing history in the Prescription Drug Monitoring Program in compliance with the [facility] regulations before prescribing a controlled substance. Last Tox Screen Results: No results found for this or any previous visit. * Telephone Encounter - Chari Millard RN - 01/05/2024 12:07 PM EDT Did you pend patient's preferred pharmacy and medication before forwarding?yes Pharmacy: [id number] [place] [address] Pending Prescriptions: Disp Refills LORazepam 0.5 MG Oral Tablet (Ativan) 21 Tab*0 Sig: Take 1 Tablet by mouth every 8 hours as needed for Anxiety. Last Visit: Visit date not found (in office), Visit date not found (telemedicine) Next Visit: Visit date not found If no future appointments scheduled, and last appointment is greater than a year ago, please schedule patient for a follow-up appointment Last date the medication was ordered: 12/22 Is this request for a controlled substance?Yes, What was the last refill date 12/22 w/ quantity 21 and dosage 0.5mg and Urine Drug Screen Not completed Urine Drug Screen:No results found for this or any previous visit. Patient Phone Numbers Labs: Lab Results Component Value Date/Time CREAT 1.0 12/10/2023 11:44 AM CREAT 0.9 05/18/2020 10:33 AM POTASSIUM 4.2 [...] 01/11/2024 2:00 PM EDT Procedure Only Urology, [facility] 132 [facility] [place] [address] Francisco Beltrán MD [address] [address] [place] [address] 05/16/2024 9:40 AM EDT Office Visit General Internal Medicine [facility] 200 [facility] [place] [address] Ciro Loja MD 200 [facility] [place] [address] 06/13/2024 9:30 AM EST Imaging Radiology, [address] [place] [address] 07/08/2024 9:30 AM EST Office Visit Cardiology, [facility] 132 [facility] [place] [address] Divya Haskins CRNP 400 [facility] [place] [address] 07/18/2024 10:00 AM EST Office Visit Rheumatology [address] [place] [address] Jerad Connelly CRNP [address] [place] [address] [place] [address] 10/21/2024 9:30 AM EDT Imaging Vascular Lab, [facility] 2nd [facility], [address] [place] [address] 10/24/2024 10:40 AM EDT Office Visit Dermatology [facility] [place] [address] [facility] [address] Jacquelin Muñoz PA-C 3[address] [facility] [place] [address] Health Maintenance Due Date Last Done Comments [...] D LEVEL ONCE IN A LIFETIME-USE SMARTSET# [id number] Completed 07/16/2023, 05/27/2021, 05/18/2020, Additional history exists [...] as of this encounter Visit Diagnoses Diagnosis JAN (generalized anxiety disorder) Generalized anxiety disorder documented in this encounter Care Teams Technology Auditor Relationship Specialty Start Date End Date Ciro Loja MD 200 [facility] [place] [address] PCP - General Internal Medicine 09/20/10 documented as of this encounter
--- OUTSIDE RECORDS SUMMARY | 2024-04-08 06:48 | External Medical Summary | Summary of Care ---
Author Name Unknown Organization [facility] Address [address] [place] [address] Phone [phone] Care Team Providers Care Director Internal Communications Name Role Phone Ciro Zayas MD Primary Care Provider + Reason for Visit * Reason Onset Date Comments Forms Request 01/06/2024 Kurt Encounter Details Date Type Department Care Team (Late st Contact Info) Description 01/06/2024 Telephone General Internal Medicine [facility] 200 [facility] [place] [address] Ciro Zayas MD [address] [facility] [address] Forms Request (Kurt) Allergies No known active allergiesdocumented as of [...] needed for Anxiety. 21 Tablet 01/05/2024 Active documented as of this encounter (statuses [...] No 12/17/2023 Does the household have a [facility] source of income? (Household - for ages [...] Encounter - Martha Melo MED ASSIST - 01/06/2024 11:45 AM EDT Successfully faxed attending physician statement, return to work certification and office notes to [phone] documented in this encounter Plan of Treatment Upcoming Encounters Date Type Department Care Team (Late st Contact Info) Description 01/11/2024 2:00 PM EDT Procedure Only Urology, [facility] 132 [facility] [place] [address] Francisco Beltrán MD [address] [facility] [place] [address] [place] [address] 05/16/2024 9:40 AM EDT Office Visit General Internal Medicine [facility] 200 [facility] [place] [address] Ciro Zayas MD 200 [facility] [place] [address] 06/13/2024 9:30 AM EST Imaging Radiology, [address] [place] [address] 07/08/2024 9:30 AM EST Office Visit Cardiology, [facility] 132 [facility] [address] Divya Haskins CRNP 400 [facility] [place] [address] 07/18/2024 10:00 AM EST Office Visit Rheumatology [place] [address] [facility] [place], [place] [address] Jerad Connelly CRNP [address] [place] [address] [place], [place] [address] 10/21/2024 9:30 AM EDT Imaging Vascular Lab, [facility] 132 [facility] [place] [address] 10/24/2024 10:40 AM EDT Office Visit Dermatology [facility] [place] 3[address] [place] [address] Jacquelin Muñoz PA-C [address] [place] [address] Health Maintenance Due Date Last Done Comments [...] D LEVEL ONCE IN A LIFETIME-USE SMARTSET# [id number] Completed 07/16/2023, 05/27/2021, 05/18/2020, Additional history exists [...] as of this encounter Care Teams Director Internal Communications Relationship Specialty Start Date End Date Ciro Zayas MD [address] [place] [address] PCP - General Internal Medicine 09/20/10 documented as of this encounter
--- OUTSIDE RECORDS SUMMARY | 2024-04-08 06:48 | External Medical Summary | Summary of Care ---
Author Name Unknown Organization [facility] Address [address] [facility] [place] [address] Phone [phone] Care Team Providers Care Allergy Nurse Name Role Phone Ciro Zayas MD Primary Care Provider + Encounter Details Date Type Department Care Team (Late st Contact Info) Description 01/05/2024 Telephone Cardiology, [facility] 132 [facility] [place] [address] Divya Haskins CRNP 400 [facility] [place] [address] Allergies No known active allergiesdocumented as of this encounter (statuses as of 01/05/2024) Medications Medication Sig Dispensed Refills Start Date [...] HOURS NEEDED FOR MUSCLE SPASMS 11/20/2023 Active LORazepam 0.5 MG Oral Tablet (Ativan)Indications:G AD (generalized anxiety disorder) Take 1 Tablet by mouth every 8 hours as needed for Anxiety. 21 Tablet 12/23/2023 Active Sertraline HCl 50 MG Oral Tablet [...] in the morning. 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 He stated he understood. * Telephone Encounter - Divya Haskins CRNP - 01/05/2024 10:42 AM EDT Please let him know I reviewed with a signaling project engineer resuming aspirin which they said would be reasonable. I would recommend he continue to hold aspirin until after his cystoscopy with Dr. Beltrán which is scheduled for 01/11/2024. He can resume 81 mg enteric coated aspirin the day after the procedure unless Dr. Beltrán prefers that he hold off. Thank You KENN Trimble documented in this encounter Plan of Treatment Upcoming Encounters Date Type Department Care Team (Late st Contact Info) Description 01/11/2024 2:00 PM EDT Procedure Only Urology, [facility] 132 [facility] [place] [address] Francisco Beltrán MD [address] [place] [address] 05/16/2024 9:40 AM EDT Office Visit General Internal Medicine [facility] 200 [facility] [place] [address] Ciro Zayas MD 200 [facility] [place] [address] 06/13/2024 9:30 AM EST Imaging Radiology, [address] [place] [address] 07/08/2024 9:30 AM EST Office Visit Cardiology, [facility] 132 [facility] [place] [address] Divya Haskins CRNP 400 [facility] [place] [address] 07/18/2024 10:00 AM EST Office Visit Rheumatology [place] [address] [facility] [place] [address] Jerad Connelly CRNP [address] [place] [address] [place] [address] 10/21/2024 9:30 AM EDT Imaging Vascular Lab, [facility] 132 [facility] [place] [address] 10/24/2024 10:40 AM EDT Office Visit Dermatology [facility] [place] 3[address] [place] [address] Jacquelin Muñoz PA-C 3556 [facility] [place] [address] Health Maintenance Due Date Last Done Comments Zoster Vaccines (1 of 2) 12/22/1987 DTaP,Tdap,and Td Vaccines (1 - Tdap) 12/27/2009 12/26/2009, 12/26/2009 *ADVANCE DIRECTIVE NOT ON FILE 02/02/2022 COVID-19 Vaccine (2022- season) 2023 10/23/2020, 10/02/2020 *BISPHONATE OR OTHER [...] D LEVEL ONCE IN A LIFETIME-USE SMARTSET# [id number] Completed 07/16/2023, 05/27/2021, 05/18/2020, Additional history exists [...] filedocumented as of this encounter Care Teams Allergy Nurse Relationship Specialty Start Date End Date Ciro Zayas MD [address] [place] [address] PCP - General Internal Medicine 09/20/10 documented as of this encounter
--- OUTSIDE RECORDS SUMMARY | 2024-04-08 06:48 | External Medical Summary | Summary of Care ---
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 05/19/2018 History of gout 03/10/2018 Varicose vein of leg 09/08/2017 History of nonmelanoma skin cancer 06/02/2017 Overview: 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 [address] Ciro Zayas MD 200 [facility] [place], [place] [address] 06/13/2024 9:30 AM EST Imaging Radiology, [place] [address] [facility] [place] [address] 07/08/2024 9:30 AM EST Office Visit Cardiology, [facility] 132 [place] [address] Divya Haskins CRNP [address] [place] [address] 07/18/2024 10:00 AM EST Office Visit Rheumatology [address] [place] [address] Jerad Connelly CRNP [address] [facility] [place], [place] [address] 10/21/2024 9:30 AM EDT Imaging Vascular Lab, [facility] [address] [address] 10/24/2024 10:40 AM EDT Office Visit Dermatology [facility] 3[address] [place] [address] Jacquelin Muñoz PA-C [address] [place] [address] Health Maintenance Due Date Last Done Comments [...] D LEVEL ONCE IN A LIFETIME-USE SMARTSET# [id number] Completed 07/16/2023, 05/27/2021, 05/18/2020, Additional history exists [...] encounter Visit Diagnoses Diagnosis JAN (generalized anxiety disorder)- Primary Generalized anxiety disorder documented in this encounter Care Teams Processing Technician Relationship Specialty Start Date End Date Ciro Zayas MD [address] [place] [address] PCP - General Internal Medicine 09/20/10 documented as of this encounter
--- OUTSIDE RECORDS SUMMARY | 2024-04-08 06:48 | External Medical Summary | Summary of Care ---
Author Name Unknown Organization [facility] Address [address] [place] [address] Phone [phone] Care Team Providers Care Sanitary Engineer Name Role Phone Ciro Loja MD Primary Care Provider + Reason for Visit * Reason Onset Date Comments Medication Refill 01/01/2024 Encounter Details Date Type Department Care Team (Late st Contact Info) Description 01/01/2024 Refill General Internal Medicine [facility] [address] [place] [address] Ciro Loja MD [address] [place] [address] Allergies No known active allergiesdocumented as of this encounter (statuses as of 01/01/2024) Medications Medication Sig Dispensed Refills Start Date [...] 11/20/2023 Active LORazepam 0.5 MG Oral Tablet (Ativan)Indications: JAN (generalized anxiety disorder) Take 1 Tablet by mouth every 8 hours as needed for Anxiety. 21 Tablet 12/23/2023 Active Sertraline HCl 50 MG Oral Tablet (Zoloft)Indications: JAN (generalized anxiety disorder) 0.5 pill by mouth once a day for 2 weeks then 1 pill daily 30 Tablet 1 12/23/2023 Active Additional Information Patient not taking.Reported on 12/29/2023 Ferrous Sulfate 325 (65 Fe) MG Oral Tablet (Feosol)Indications: Decreased hemoglobin Take 1 Tablet by mouth every other day. 12/23/2023 Active busPIRone HCl 10 MG Oral Tablet (Buspar)Indications: JAN (generalized anxiety disorder) TAKE 1 TABLET BY MOUTH EVERY MORNING AND TAKE ONE TABLET BY MOUTH AT BEDTIME 60 Tablet 12/31/2023 Active Pantoprazole Sodium 40 MG Oral Tablet Delayed Release (Protonix) Take 1 Tablet by mouth in the morning. 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 Never true 12/17/2023 Sex and Gender Information Value Date Recorded Sex Assigned at Male 08/11/2019 11:59 AM EST Gender Identity Male 08/11/2019 11:59 AM EST Sexual Orientation Straight 08/11/2019 11 :59 AM EST Job Start Date Occupation Industry Not on file Not on file Not on file documented as of this encounter Miscellaneous Notes * Telephone Encounter - Ciro Loja MD - 01/01/2024 5:17 PM EDTSigned Prescriptions: Disp Refills Pantoprazole Sodium 40 MG Oral Tablet Mirtha*60 Tab*0 Sig: Take 1 Tablet by mouth in the morning. Authorizing Provider: CIRO LOJA * Telephone Encounter - Marciano Valentin, MED ASSIST - 01/01/2024 4:20 PM EDTPending Prescriptions: Disp Refills Pantoprazole Sodium 40 MG Oral Tablet Mirtha*60 Tab*0 Sig: Take 1 Tablet by mouth in the morning. * Telephone Encounter - Marciano Valentin, MED ASSIST - 01/01/2024 4:19 PM EDT Review and sig if agreeable. * Telephone Encounter - Adriana Erickson OSA - 01/01/2024 11:22 AM EDT Did you pend patient's preferred pharmacy and medication before forwarding?yes Pharmacy: [facility] [id number] [place] Pending Prescriptions: Disp Refills Pantoprazole Sodium 40 MG Oral Tablet Del*60 Tab*0 Sig: Take 1 Tablet by mouth in the morning. Last Visit: 12/23/2023 (in office), Visit date not found (telemedicine) Next Visit: 05/16/2024 If no future appointments scheduled, and last appointment is greater than a year ago, please schedule patient for a follow-up appointment Last date the medication was ordered: 12/08/23 Is this request for a controlled substance?No [...] 01/05/2024 8:30 AM EDT Office Visit Cardiology, [facility] 132 [facility] [place] [address] Divya Haskins CRNP [address] [place] [address] [place] [id number] 01/11/2024 2:00 PM EDT Procedure Only Urology, [facility] [address] [place] [address] Francisco Beltrán MD [address] [place] [address] 05/16/2024 9:40 AM EDT Office Visit General Internal Medicine [facility] 200 [facility] [place] [address] Ciro Loja MD 200 [facility] [place] [address] 06/13/2024 9:30 AM EST Imaging Radiology, [address] [place] [address] 07/18/2024 10:00 AM EST Office Visit Rheumatology [address] [place] [address] Jerad Connelly CRNP [facility] [place] [address] 10/21/2024 9:30 AM EDT Imaging Vascular Lab, [facility] 2nd [facility] [address] [facility] [place] [address] 10/24/2024 10:40 AM EDT Office Visit Dermatology [facility] [address] [place] [address] Jacquelin Muñoz PA-C [address] [place] [address] Health Maintenance Due Date Last Done Comments [...] D LEVEL ONCE IN A LIFETIME-USE SMARTSET# [id number] Completed 07/16/2023, 05/27/2021, 05/18/2020, Additional history exists [...] filedocumented as of this encounter Care Teams Sanitary Engineer Relationship Specialty Start Date End Date Ciro Loja MD [address] [place] [address] PCP - General Internal Medicine 09/20/10 documented as of this encounter
--- OUTSIDE RECORDS SUMMARY | 2024-04-08 06:49 | External Medical Summary | Summary of Care ---
Author Name Unknown Organization [facility] Address [address] [place] [address] Phone [phone] Care Team Providers Care Vet Assistant Name Role Phone Ciro Zayas MD Primary Care Provider + Reason for Visit * Reason Onset Date Comments Other 12/17/2023 [facility] case mgmt Encounter Details Date Type Department Care Team (Late st Contact Info) Description 12/17/2023 Telephone General Internal Medicine [facility] [address] [place] [address] Ciro Zayas MD [address] [place] [facility] [place] [address] Other ([facility] case mgmt) Allergies No known active allergiesdocumented as of this encounter (statuses as of 12/17/2023) Medications Medication Sig Dispensed Refills Start Date [...] EVERY DAY 90 Tablet 3 10/23/2023 Active Pantoprazole Sodium 40 MG Oral Tablet Delayed Release (Protonix) TAKE 1 TABLET BY MOUTH TWO TIMES DAILY 12/08/2023 Active Cyclobenzaprine HCl 5 MG Oral Tablet (Flexeril) TAKE 1 TABLET BY MOUTH EVERY 8 HOURS NEEDED FOR MUSCLE SPASMS 11/20/2023 Active busPIRone HCl 10 MG Oral Tablet (Buspar)Indications:G AD (generalized anxiety disorder) Take 1 Tablet by mouth in the morning and 1 Tablet before bedtime. 60 Tablet 12/15/2023 Active documented as of this encounter (statuses as of 12/17/2023) Active Problems Problem Noted Date Diagnosed Date [...] -19) 02/26/2022 Senile osteoporosis 12/24/2018 Atherosclerosis of [place] co ronary artery of [place] heart without angina pectoris 05/19/2018 History of gout 03/10/2018 Varicose vein of leg 09/08/2017 History of nonmelanoma skin cancer 06/02/2017 Overview: BCC L midback 03/10 BCC right post-auricular scalp 06/06 BCC right pre-auricular ear 08/29 BCC right chest 210 BCC under the right ala 02/26 History of alcohol dependence 03/05/2017 Dyslipidemia, goal LDL below 70 10/02/2011 Restless leg syndrome 09/24/2010 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 Bradycardia 12/01/2008 Beta-blockers contraindicated YURY inhibitor intolerance Overview: low blood pressure documented as of this encounter (statuses as of 12/17/2023) Resolved Problems Problem Noted Date Diagnosed Date [...] as of this encounter (statuses as of 12/17/2023) Immunizations Name Administration Dates Next Due COVID-19 [...] encounter Miscellaneous Notes * Telephone Encounter - Chari Millard RN - 12/17/2023 3:40 PM EDT Spoke with Clarissa, confused as to why pt was sent to ED. Explained earlier event with pt coming to PCP office with high anxiety/passive SI. Clarissa states pt is being evaluated but will not be admitted as he does not meet criteria for BH admission at this time. She is not sure how they will get pt out of the hospital though as he feels he should be seen by a psychiatrist. Hospital d/c appointment made for 12/23/23 with pt's PCP and information provided to Clarissa. * Telephone Encounter - Miguelina Madden OSA - 12/17/2023 3:21 PM EDT Clarissa calling from [facility] ER case management to speak to pt's mental health case manager Chari Millard. Call transferred to phone number [phone] documented in this encounter Plan of Treatment Upcoming Encounters Date Type Department Care Team (Late st Contact Info) Description 12/23/2023 11:20 AM EDT Office Visit General Internal Medicine [facility] 200 [facility] [place] [address] Ciro Zayas MD 200 [facility] [place] [address] 01/05/2024 8:30 AM EDT Office Visit Cardiology, [facility] 132 [facility] [place] [address] Divya Haskins CRNP [address] [facility] [place] [address] 01/11/2024 2:00 PM EDT Procedure Only Urology, [facility] 132 [facility] [place] [address] Francisco Beltrán MD 27 [facility] [address] [place] [address] 04/06/2024 12:30 PM EDT Office Visit Gastroenterology, [facility] 132 [facility] [place] [address] Lisseth Zarate CRNP 132 [facility] [place] [address] 05/16/2024 9:40 AM EDT Office Visit General Internal Medicine [facility] 200 [facility] [place], [place] [address] Ciro Zayas MD 200 [facility] [place] [address] 06/13/2024 9:30 AM EST Imaging Radiology, [address] [place] [address] 07/18/2024 10:00 AM EST Office Visit Rheumatology [address] [place] [address] [place] Connelly CRNP [address] [place] [address] [place] [address] 10/21/2024 9:30 AM EDT Imaging Vascular Lab, [facility] 2nd [facility] 132 [facility] [place] [address] 10/24/2024 10:40 AM EDT Office Visit Dermatology [facility] [place] [address] [place] [address] Jacquelin Muñoz PA-C [address] [place] [address] Health Maintenance Due Date Last Done Comments Zoster Vaccines (1 of 2) 12/22/1987 DTaP,Tdap,and Td Vaccines (1 - Tdap) 12/27/2009 12/26/2009, 12/26/2009 *ADVANCE DIRECTIVE NOT ON FILE 02/02/2022 COVID-19 Vaccine (3 season) 2023 10/23/2020, 10/02/2020 Depression, Most Recent Score >= 10 (will fire each visit until score < 10) 12/18/2023 12/17/2023 Influenza Vaccine (FLU shot) (Season Ended) 2024 DXA Scan 06/10/2024 06/10/2022, 08/0 09/2019, 02/09/2018, Additional history exists O2 ASSESSMENT COMPLETED IN PAST YEAR FOR COPD 12/14/2024 12/15/2023 Pneumococcal Vaccine: 65+ Years Completed 08/30/2014, 12/26/2009 Alpha-1 Antitrypsin Completed 08/20/2021 VITAMIN D LEVEL ONCE IN A LIFETIME-USE SMARTSET# [id number] Completed 07/16/2023, 05/27/2021, 05/18/2020, Additional history exists [...] filedocumented as of this encounter Care Teams Vet Assistant Relationship Specialty Start Date End Date Ciro Zayas MD [address] [place] [address] PCP - General Internal Medicine 09/20/10 documented as of this encounter
--- OUTSIDE RECORDS SUMMARY | 2024-04-08 06:49 | External Medical Summary | Summary of Care ---
Author Name Unknown Organization [facility] Address [address] [place] [facility] [place] [place] [address] Phone [phone] Care Team Providers Care Mental Health Clinician Name Role Phone Ciro Zayas MD Primary Care Provider + Encounter Details Date Type Department Care Team (Late st Contact Info) Description 12/22/2023 Telephone General Surgery, [facility] 132 [facility] [place] [address] Francisco Beltrán MD [address] [facility] [address] [place] [address] Allergies No known active allergiesdocumented as of this encounter (statuses as of 12/22/2023) Medications Medication Sig Dispensed Refills Start Date [...] as of this encounter (statuses as of 12/22/2023) Active Problems Problem Noted Date Diagnosed Date [...] -19) 02/26/2022 Senile osteoporosis 12/24/2018 Atherosclerosis of [place] co ronary artery of [place] heart without angina pectoris 05/19/2018 History of [...] as of this encounter (statuses as of 12/22/2023) Resolved Problems Problem Noted Date Diagnosed Date [...] , patient declined. Diverticulitis of colon 07/10/2009 0302/2011 Overview: Have diverticular bleed in 2008 Dyslipidemia, goal LDL below 70 07/03/2009 05/27/2011 Overview: Per Lipid Taxonomy. COPD, severity to be determined 01/10/2009 04/05/2012 Skin sensation disturbance 12/01/2008 0 03/05/2017 Mixed dyslipidemia 10/06/2008 9 Overview: Per Lipid Taxonomy. Coronary atherosclerosis 10/06/2008 Overview: No obstructive lesions in 2008 - had coronary cath documented as of this encounter (statuses as of 12/22/2023) Immunizations Name Administration Dates Next Due COVID-19 [...] Telephone Encounter - Vania Scott LPN - 12/22/2023 3:14 PM EDT Spoke with patient. Explained procedure, all questions answered, patient expressed understanding. * Telephone Encounter - Lety Barron LPN - 12/22/2023 2:35 PM EDT Patient was in to see Celine in gastro, he has an appt with DR Gail Beltrán on the . He wasn't sure whether or not it was a consult or the actual procedure, cystoscopy. She asked that someone talk to him. I told him it was the procedure. He is not sure what to expect and is nervous, I said I usuallywork in General Surgery and dont know how things are done but that I would send a message to the Urology nurses and they could give them a call and tell him whether or Not he needs a maintenance truck driver, or he's put under romina etc. Please call patient and advise. documented in this encounter Plan of Treatment Upcoming Encounters Date Type Department Care Team (Late st Contact Info) Description 12/23/2023 11:20 AM EDT Office Visit [facility] [place] [address] [place] [address] Ciro Zayas MD [address] [place] [address] [address] 01/05/2024 8:30 AM EDT Office Visit Cardiology, [facility] 132 [place] [address] Divya Haskins CRNP 400 [place] [address] 01/11/2024 2:00 PM EDT Procedure Only Urology, [facility] 132 [facility] [place] [address] Francisco Beltrán MD [address] [place] [address] [place] [address] 05/16/2024 9:40 AM EDT Office Visit General Internal Medicine [facility] [place] [address] [place] [address] Ciro Zayas MD [address] [facility] [place] [address] 06/13/2024 9:30 AM EST Imaging Radiology, [address] [place] [address] 07/18/2024 10:00 AM EST Office Visit Rheumatology [facility] [place] [address] [facility] [place] [address] [place] Connelly CRNP [address] [facility] [place] [address] 10/21/2024 9:30 AM EDT Imaging Vascular Lab, [place] [address] [facility] [place] [address] [facility] [place] [address] 10/24/2024 10:40 AM EDT Office Visit Dermatology [facility] [place] [address] [place] [address] Jacquelin Muñoz PA-C [address] [facility] [place] [address] Health Maintenance Due Date Last Done Comments Zoster Vaccines (1 of 2) 12/22/1987 DTaP,Tdap,and Td Vaccines (1 - Tdap) 12/27/2009 12/26/2009, 12/26/2009 *ADVANCE DIRECTIVE NOT ON FILE 02/02/2022 COVID-19 Vaccine ( season) 2023 10/23/2020, 10/02/2020 *BISPHONATE OR OTHER ACCEPTABLE MEDICATION NEEDED FOR OSTEOPOROSIS (REFER TO SMARTSET #1146) 12/18/2023 Depression, Most Recent Score >= 10 (will fire each visit until score < 10) 12/18/2023 12/17/2023 Influenza Vaccine (FLU shot) (Season Ended) 2024 DXA Scan 06/10/2024 06/10/2022, 0809/2019, 02/09/2018, Additional history exists O2 ASSESSMENT COMPLETED IN PAST YEAR FOR COPD 12/14/2024 12/15/2023 Pneumococcal Vaccine: 65+ Years Completed 08/30/2014, 12/26/2009 Alpha-1 Antitrypsin Completed 08/20/2021 VITAMIN D LEVEL ONCE IN A LIFETIME-USE SMARTSET# [id number] Completed 07/16/2023, 05/27/2021, 05/18/2020, Additional history exists [...] filedocumented as of this encounter Care Teams Mental Health Clinician Relationship Specialty Start Date End Date Ciro Zaysa MD 200 [facility] [place] [address] PCP - General Internal Medicine 09/20/10 documented as of this encounter
--- OUTSIDE RECORDS SUMMARY | 2024-04-08 06:49 | External Medical Summary ---
Author Name Unknown Address Unknown Organization K[facility] [place] [address] Laboratory Report Ordering Provider Test Date Status NYDIA YANG 12/18/2023 11:06:04 Final Observation Date Value Abnormality Reference (Units ) Status SYNC LEUKOCYTES IN BLOOD BY AUTOMATED COUNT 12/18/2023 11:06:04 12.46 Above high normal 4.00-10.80 (K/uL) Final Neutrophils/100 leukocytes in Blood by Manual count 12/18/2023 11:06:04 74.0 40.0-75.0 (%) Final Lymphocytes/100 leukocytes in Blood by Manual count 12/18/2023 11:06:04 18.0 18.0-42.0 (%) Final Monocytes/100 leukocytes in Blood by Manual count 12/18/2023 11:06:04 5.0 1.0-11.0 (%) Final Eosinophils/100 leukocytes in Blood by Manual count 12/18/2023 11:06:04 3.0 0.0-6.0 (%) Final Neutrophils [#/volume] in Blood by Manual count 12/18/2023 11:06:04 9.22 Above high normal 1.80-7.70 (K/uL) Final Lymphocytes [#/volume] in Blood by Manual count 12/18/2023 11:06:04 2.24 1.00-4.80 (K/uL) Final Monocytes [#/volume] in Blood by Manual count 12/18/2023 11:06:04 0.62 0.00-1.10 (K/uL) Final Eosinophils [#/volume] in Blood by Manual count 12/18/2023 11:06:04 0.37 0.00-0.70 (K/uL) Final Nucleated erythrocytes/100 leukocytes [Ratio] in Blood by Automated count 12/18/2023 11:06:04 Final Performing Location [facility] [place] [address]
--- OUTSIDE RECORDS SUMMARY | 2024-04-08 06:49 | External Medical Summary | Summary of Care ---
Author Name Unknown Organization [facility] Address [address] [place] [address] Phone [phone] Care Team Providers Care Pcat Instructor Name Role Phone Ciro Zayas MD Primary Care Provider + Reason for Visit * Reason Comments Follow Up Pt here for [facility] hos pital f/u. Pt scoped while inpt. EGD showed an ulcer. * Evaluate & Treat - Unlimited Visits (Within 10 days (routine)) - Authorized Specialty Diagnoses / Procedures Referred By Miguel clinton Referred To Contact Gastroenterology Diagnoses Gastrointestinal hemorrhage, unspecified gastrointestinal hemorrhage type ABLA (acute blood loss anemia) Ronen Hubbard, DO [address] [place] [address] Referral ID Status Reason Start Date Expiration Date Visits Requested Visits Authorized [id number] Authorized Specialty Services Required 12/09/2023 [id number] Encounter Details Date Type Department Care Team (Late st Contact Info) Description 12/22/2023 2:00 PM EDT Office Visit Gastroenterology, [facility] [address] [facility] [place] [address] Lisseth Zarate CRNP [address] [facility] [place] [address] Anemia, unspecified type*; Melena; Duodenitis without bleeding Allergies No known active allergiesdocumented as of [...] -19) 02/26/2022 Senile osteoporosis 12/24/2018 Atherosclerosis of [place] co ronary artery of [place] heart without angina pectoris 05/19/2018 History of [...] mRNA, LNP-s, No Pre serve, 2-Dose Series ([place] Thin brick) 10/23/2020,10/02/2020 Pneumococcal Conjugate Vacc, 13 Valent (Prevnar) [...] Sign Reading Time Taken Comments Blood Pressure 128/70 12/22/2023 2:03 PM EDT Pulse 78 12/22/2023 2:03 PM EDT Temperature 36.8 C (98.2 F) 12/22/2023 2:03 PM ED T Respiratory Rate - - Oxygen Saturation - - Inhaled Oxygen Concentration - - Weight 59.1 kg (130 lb 4.8 oz) 12/22/2023 2:03 P M EDT Height - - Body Mass Index 20.41 12/15/2023 1:47 PM EDT documented in this encounter Progress Notes * Lisseth Zarate CRNP - 12/22/2023 10:34 PM EDT DATE OF SERVICE: 12/22/2023 REFERRING PHYSICIAN: Ronen Hubbard DO CC: Hospital DC f/u HPI: Juan Vazquez is a 88 year old male referred by Ronen Hubbard DO for evaluation after post hospital DC f/u. He was admitted at [facility] 2 weeks ago w symptoms of lightheadedness, weakness and melena. Found to be anemic w Hgb down to 6 requiring PRBC transfusion. Most recently had repeat CBC w Hgb of 10 and he denies any recurrence of dark/tarry stools. Denies also abd pain, n/v symptoms. He is also taking iron supplement once daily. He was noted to also have influenza infection, currently denies any cough, CP, SOB. He had EGD and colonoscopy done by Dr. Armani Bower which showedpost ulcer duodenal deformity, colonic diverticulosis and int hemorrhoids. 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 Of note, he had abnormal findings in bladder via CT scan and has f/u w Urology on 01/11/24. He also had previously smokes, and took ASA 325mg daily. Past Medical History: Diagnosis Date YURY inhibitor intolerance low blood pressure Acute inferior myocardial infarction (HCC) 2002 Beta-blockers contraindicated Bradycardia 12/01/2008 COPD (chronic obstructive pulmonary disease) (HCC) COPD, mild (HCC) 04/05/2012 Coronary atherosclerosis 10/06/2008 Dyslipidemia, goal LDL below 70 10/02/2011 Gout 05/31/2013 History of 2019 novel coronavirus disease (COVID-19) 02/26/2022 History of alcohol dependence (HCC) 03/05/2017 History of cigarette smoking 02/26/2022 History of pulmonary embolism 02/26/2022 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 PAD (peripheral artery disease) (HCC) 09/23/2022 Personal history of alcoholism (HCC) sober since 10/1978 Family History Problem Relation Name Age of Onset Cancer Mother , lung No Past Hx Father alcoholic Heart Disorder Father SD at 61 No Past Hx Brother Past Surgical History: Procedure Laterality Date COLONOSCOPY, DIAGNOSTIC (RECTUM) 06/19/2021 normal bx / COLONOSCOPY FLEXIBLE PROXIMAL DIAGNOSTIC performed by Shelly Phillip MD at ENDOSCOPY [facility] COLORECTAL CANCER SCREEN; NOT AT RISK 04/17/09 done diverticulosis,a single non-bleeding colonic angioectasia DENTAL SURGERY PROCEDURE NEC 07/20/2013 EGD, FLEXIBLE, DIAGNOSTIC 06/19/2021 duodenal diverticulum,gastric heterotopia, reflux esophagitis / ESOPHAGOGASTRODUODENOSCOPY (EGD), FLEXIBLE, TRANSORAL, DIAGNOSTIC performed by Shelly Phillip MD at ENDOSCOPY [facility] INSERTION OF LENS PROSTHESIS 07/20/2001 Social History Tobacco Use Smoking status: Former Current packs/day: 0.00 Average packs/day: 1 pack/day for 50.0 years (50.0 ttl pk-yrs) Types: Cigarettes Start date: 07/12/1971 Quit date: 07/12/2021 Years since quittin.4 Smokeless tobacco: Never Vaping Use Vaping status: Never Used Substance Use Topics Alcohol use: No Comment: no drinks since 1978 Drug use: No Review of patient's allergies indicates: No Known Allergies Current Outpatient Medications Medication Sig Dispense Refill Cholecalciferol (VITAMIN D) 1000 UNIT Capsule 1 cap daily Albuterol Sulfate HFA 108 (90 Base) MCG/ACT Inhalation Aerosol Solution Inhale by mouth 2 Puffs every 4 hours as needed for Wheezing. 18 g 1 traZODone HCl 50 MG Oral Tablet (Desyrel) Take 1 Tablet by mouth at bedtime. 90 Tablet 3 Diclofenac Sodium 1 % External Gel (Voltaren) Apply 2 gm to the hands bilaterally every 6 hours as needed for pain Atorvastatin Calcium 40 MG Oral Tablet (Lipitor) TAKE 1 TABLET BY MOUTH EVERY DAY 90 Tablet 3 Pantoprazole Sodium 40 MG Oral Tablet Delayed Release (Protonix) TAKE 1 TABLET BY MOUTH TWO TIMES DAILY Cyclobenzaprine HCl 5 MG Oral Tablet (Flexeril) TAKE 1 TABLET BY MOUTH EVERY 8 HOURS NEEDED FOR MUSCLE SPASMS busPIRone HCl 10 MG Oral Tablet (Buspar) Take 1 Tablet by mouth in the morning and 1 Tablet before bedtime. 60 Tablet 0 MULTI VITAMIN MENS PO TABS one tablet by mouth daily Nitroglycerin 0.4 MG Sublingual Tablet Sublingual (Nitrostat) Place under the tongue 1 Tablet every5 minutes as needed for Pain, Chest. up to 3 doses in 15 minutes 25 Tablet 11 No current facility-administered medications for this visit. REVIEW OF SYSTEMS: See HPI above; All other findings negative. EXAM: Filed Vitals: 12/22/23 1403 BP: 128/70 Pulse: 78 Temp: 36.8 C (98.2 F) Weight: 59.1 kg (130 lb 4.8 oz) GENERAL: Well developed and well nourished in no acute distress. SKIN: No rashes, ulcers, jaundice or spider angiomata. HEENT: Normocephalic, sclera clear,. NECK: Supple, trachea midline, no JVD. LUNGS: Clear to auscultation bilaterally, no respiratory distress or accessory muscles used. HEART: Regular rate & rhythm, no murmurs and no gallops. ABDOMEN: Normal bowel sounds, soft and nontender. EXTREMITIES: No palmar erythema, no ankle edema, no skin discoloration, no clubbing, no cyanosis. NEURO: No lateralizing findings. Sensory/Motor grossly normal. ASSESSMENT AND PLAN: Juan Vazquez is a 88 year old male w hx of cecal and colonic AVM, recently had weakness, light headedness and melena symptoms. He was found to have Influenza, and through endoscopy noted to have post ulcer duodenal deformity, but other findings were benign including colonic diverticuli and int hemorrhoids. Anemia treated w PRBC transfusion, currently oral iron supplement and his most recent blood work showed improvement in blood ct. He was started on Protonix 40mg bid as well, denies recurrence of melena, nor having abd pain, n/v. - Continue Protonix 40mg bid x 6 weeks, then 40mg once daily - Avoid full strength ASA and NSAIDs, tobacco, ETOH - Ferrous Sulfate 325mg daily - PCP can monitor blood ct routinely via CBC labs - F/U w Urology on 01/10 to eval bladder abnormality found in CT scan I spent a total of 45 minutes on the date of service in review of patient's record, and previously obtained information in person and appropriate medical visit, discussion and education of plan, withpatient and/or caregiver, placing orders for tests/referral/procedures as medically necessary and documentation of pertinent clinical information in patient's medical records for their visit today. RETURN TO CLINIC: Clarissa Restrepo Gastroenterology, [facility] R: 12/22/2023 documented in this encounter Nursing Notes * Gabrielle Bermudez CMA - 12/22/2023 2:03 PM EDT Chief Complaint Patient presents with Follow Up Pt here for [facility] hospital f/u. Pt scoped while inpt. EGD showed an ulcer. documented in this encounter Plan of Treatment Upcoming Encounters Date Type Department Care Team (Late st Contact Info) Description 12/23/2023 11:20 AM EDT Office Visit General Internal Medicine [facility] [address] [facility] [place] [address] Ciro [facility]as MD [facility] [address] 01/05/2024 8:30 AM EDT Office Visit Cardiology, [facility] [address] [facility] [place] [address] Divya Haskins CRNP [address] [place] [address] [place] [address] 01/11/2024 2:00 PM EDT Procedure Only Urology, [facility] [address] [place] [address] Francisco Beltrán MD [address] [facility] [address] [place] [address] 05/16/2024 9:40 AM EDT Office Visit General Internal Medicine [facility] [address] [facility] [place] [address] Ciro Zayas MD [address] [facility] [place] [address] 06/13/2024 9:30 AM EST [facility], [address] [place] [address] 07/18/2024 10:00 AM EST Office Visit Rheumatology [place] [id number] [place] [address] Jerad Connelly CRNP [facility] [place] [address] 10/21/2024 9:30 AM EDT Imaging Vascular Lab, [facility] 2nd [facility] [address] [place] [address] 10/24/2024 10:40 AM EDT Office Visit Dermatology [facility] [address] [place] [address] Jacquelin Muñoz PA-C [address] [place] [address] Scheduled Referrals Name Type Priority Associated Diagnoses Orde r Schedule ADULT GASTROENTEROLOGY REFERRAL OP Referral Within 10 days (routine) Gastrointestinal hemorrhage, unspecified gastrointestinal hemorrhage type ABLA (acute blood loss anemia) Ordered: 12/09/2023 Health Maintenance Due Date Last Done Comments [...] D LEVEL ONCE IN A LIFETIME-USE SMARTSET# [id number] Completed 07/16/2023, 05/27/2021, 05/18/2020, Additional history exists [...] as of this encounter Visit Diagnoses Diagnosis Anemia, unspecified type- Primary Melena Blood in stool Duodenitis without bleeding Duodenitis without mention of hemorrhage documented in this encounter Care Teams Pcat Instructor Relationship Specialty Start Date End Date Ciro Zayas MD [address] [place] [address] PCP - General Internal Medicine 09/20/10 documented as of this encounter
--- OUTSIDE RECORDS SUMMARY | 2024-04-08 06:49 | External Medical Summary ---
Author Name Unknown Address Unknown Organization K09:[facility] [place] [address] Laboratory Report Ordering Provider Test Date Status NYDIA YANG 12/18/2023 11:06:04 Final Observation Date Value Abnormality Reference (Units ) Status WBC, Total 12/18/2023 11:06:04 12.46 Above high normal 4 .00-10.80 (K/uL) Final RBC 12/18/2023 11:06:04 3.54 4.50-5.25 (M/uL) Final Hemoglobin 12/18/2023 11:06:04 10.8 Below low normal 14 .0-16.8 (g/dL) Final HCT 12/18/2023 11:06:04 35.0 Below low normal 40. 0-48.4 (%) Final MCV 12/18/2023 11:06:04 98.9 82.0-99.5 (fL) Final MCH 12/18/2023 11:06:04 30.5 27.0-34.0 (pg) Final MCHC 12/18/2023 11:06:04 30.9 32.0-36.0 (g/dL) Final RDW 12/18/2023 11:06:04 16.0 11.5-15.5 (%) Final Platelets 12/18/2023 11:06:04 305 140-400 (K /uL) Final MPV 12/18/2023 11:06:04 8.6 6.6-11.1 ( fL) Final Performing Location [facility] [address]
--- OUTSIDE RECORDS SUMMARY | 2024-04-08 06:49 | External Medical Summary | Summary of Care ---
Author Name Unknown Organization [facility] Address [address] [place] [address] Phone [phone] Care Team Providers Care Chemical Strength Tester Name Role Phone Ciro Zayas MD Primary Care Provider + Reason for Visit * Reason Comments Outpatient Testing Encounter Details Date Type Department Care Team (Latest Contact Info) Description 12/18/2023 9:30 AM EDT Laboratory Laboratory [facility] [address] [place] [address] [facility] [address] [place] [address] Gastrointestinal hemorrhage associated with duodenal ulcer Allergies No known active allergiesdocumented as of this encounter (statuses as of 12/18/2023) Medications Medication Sig Dispensed Refills Start Date [...] as of this encounter (statuses as of 12/18/2023) Active Problems Problem Noted Date Diagnosed Date [...] -19) 02/26/2022 Senile osteoporosis 12/24/2018 Atherosclerosis of enterprise co ronary artery of enterprise heart without angina pectoris 05/19/2018 History of [...] as of this encounter (statuses as of 12/18/2023) Resolved Problems Problem Noted Date Diagnosed Date [...] as of this encounter (statuses as of 12/18/2023) Immunizations Name Administration Dates Next Due COVID-19 [...] 12/22/2023 2:00 PM EDT Office Visit Gastroenterology, [facility] [address] [place] [address] Lisseth Zarate CRNP [address] [place] [address] 12/23/2023 11:20 AM EDT Office Visit General Internal Medicine [facility] [place] [address] [place] [address] Ciro Zayas MD [address] [place] [address] 01/05/2024 8:30 AM EDT Office Visit Cardiology, [facility] 132 [facility] [place] [address] Divya Haskins CRNP [address] [facility] [place] [address] 01/11/2024 2:00 PM EDT Procedure Only Urology, [facility] [address] [facility] [place] [address] Francisco Beltrán MD [address] [place] [address] [place] [address] 05/16/2024 9:40 AM EDT Office Visit General Internal Medicine [facility] [address] [place] [address] Ciro Zayas MD 200 [facility] [place] [address] 06/13/2024 9:30 AM EST Imaging Radiology, [address] [place] [address] 07/18/2024 10:00 AM EST Office Visit Rheumatology [address] [place] [address] Jerad Connelly CRNP [address] [place] [address] [place] [address] 10/21/2024 9:30 AM EDT Imaging Vascular Lab, [facility] 2nd Floor, [place] [address] [facility] [place] [address] 10/24/2024 10:40 AM EDT Office Visit Dermatology [facility] [address] [facility] [place] [address] Jacquelin Muñoz PA-C [address] [facility] [place] [address] Pending Results Name Type Priority Associated Diagnoses Date /Time CBC WITH WBC DIFFERENTIAL Lab Routine Gastrointestinal hemorrhage associated with duodenal ulcer 12/18/2023 11:06 AM EDT IRON SCREEN, INCLUDING TIBC Lab Routine Gastrointestinal hemorrhage associated with duodenal ulcer 12/18/2023 11:06 AM EDT FERRITIN Lab Routine Gastrointestinal hemorrhage associated with duodenal ulcer 12/18/2023 11:06 AM EDT CBC Lab Routine Gastrointestinal hemorrhage associated with duodenal ulcer 12/18/2023 11:06 AM EDT DIFFERENTIAL, AUTOMATED Lab Routine Gastrointestinal hemorrhage associated with duodenal ulcer 12/18/2023 11:06 AM EDT Health Maintenance Due Date Last [...] D LEVEL ONCE IN A LIFETIME-USE SMARTSET# [id number] Completed 07/16/2023, 05/27/2021, 05/18/2020, Additional history exists [...] as of this encounter Visit Diagnoses Diagnosis Gastrointestinal hemorrhage associated with duodenal ulcer documented in this encounter Care Teams Chemical Strength Tester Relationship Specialty Start Date End Date Ciro Zayas MD 200 [facility] [place] [address] PCP - General Internal Medicine 09/20/10 documented as of this encounter
--- OUTSIDE RECORDS SUMMARY | 2024-04-08 06:49 | External Medical Summary | Summary of Care ---
Author Name Unknown Organization [facility] Address [address] [place] [address] Phone [phone] Care Team Providers Care Window Cleaner Name Role Phone Ciro Zayas MD Primary Care Provider + Reason for Visit * Reason Comments Emergency Department Follow-Up Pt pressanti chakraborty to [facility] ER on 12/16 for increased anxiety. Pt states what he was given, ativan, works great for him and he has been doing good since discharge Encounter Details Date Type Department Care Team (Late st Contact Info) Description 12/23/2023 11:20 AM EDT Office Visit General Internal Medicine [facility] [address] [facility] [place] [address] Ciro Zayas MD [address] [place] [address] JAN (generalized anxiety disorder)*; Lesion of bladder; Decreased hemoglobin Allergies No known active allergiesdocumented as of this encounter (statuses as of 12/23/2023) Medications Medication Sig Dispensed Refills Start Date [...] Tablet before bedtime. 60 Tablet 12/15/2023 Active Additional Information Patient not taking.Reported on 12/23/2023 LORazepam 0.5 MG Oral Tablet (Ativan)Indications:G AD [...] by mouth every other day. 12/23/2023 Active documented as of this encounter (statuses as of 12/23/2023) Active Problems Problem Noted Date Diagnosed Date [...] -19) 02/26/2022 Senile osteoporosis 12/24/2018 Atherosclerosis of cahto co ronary artery of cahto heart without angina pectoris 05/19/2018 History of [...] as of this encounter (statuses as of 12/23/2023) Resolved Problems Problem Noted Date Diagnosed Date [...] as of this encounter (statuses as of 12/23/2023) Immunizations Name Administration Dates Next Due COVID-19 mRNA, LNP-s, No Pre serve, 2-Dose Series (Pfizer) 10/23/2020,10/02/2020 Pneumococcal Conjugate Vacc, 13 Valent (Prevnar) 08/30/2014 Pneumococcal Polysaccharide PPV23 (Pneumovax) TD - Tetanus/Diptheria (ADULT) 12/26/2009 TD, Preservative Free 12/26/2009 documented as of this encounter Social History Tobacco Use Types Packs/Day Years Used Date Smoking Tobacco: Former Cigarettes 1 50 1 09/12/1970 - 07/12/2021 Smokeless Tobacco: Never Tobacco Cessation:Counseling Given: Not Answered Alcohol Use Standard Drinks/Week Comments No 0 [...] Sign Reading Time Taken Comments Blood Pressure 124/64 12/23/2023 11:17 AM EDT Pulse 64 12/23/2023 11:17 AM EDT Temperature 35.7 C (96.3 F) 12/23/2023 11:17 AM E DT Respiratory Rate - - Oxygen Saturation 97% 12/23/2023 11:17 AM EDT Inhaled Oxygen Concentration - - Weight 59.1 kg (130 lb 4.8 oz) 12/23/2023 11:17 AM EDT Height 170.2 cm (5' 7") 12/23/2023 11:17 AM EDT Body Mass Index 20.41 12/23/2023 11:17 AM EDT documented in this encounter Progress Notes * Ciro Zayas MD - 12/23/2023 11:45 AM EDT Chief Complaint Patient presents with Emergency Department Follow-Up Pt presented to [facility] ER on 12/16 for increased anxiety. Pt states what he was given, ativan, works great for him and he has been doing good since discharge SUBJECTIVE: Juan Vazquez is a 88 year old male with PMH as below who presents for ER follow up. He was seen 12/17/23 at [facility] ER for increasing anxiety, stress, SI. He was given ativan and sent home after labs and seeing psych CM. Feels a lot better, ativan helping a lot. He is not gambling, feels better, debt is down from 30+K to 18K now. Mood is good. No SI, HI. Still feels weak from previous hospitalization, not ready for work yet. Patient Active Problem List Diagnosis Bradycardia Impotence of organic origin Restless leg syndrome Beta-blockers contraindicated YURY inhibitor intolerance Dyslipidemia, goal LDL below 70 History of alcohol dependence (HCC) History of nonmelanoma skin cancer Varicose vein of leg History of gout Atherosclerosis of cahto coronary artery of cahto heart without angina pectoris Senile osteoporosis History of pulmonary embolism History of cigarette smoking History of 2019 novel coronavirus disease (COVID-19) PVD (peripheral vascular disease) (HCC) AAA (abdominal aortic aneurysm) ([facility]) COPD, group D, by GOLD 2017 classification ([facility]) Frequent PVCs NSVT (nonsustained ventricular tachycardia) ([facility]) Aortic ectasia, abdominal ([facility]) Current Outpatient Medications Medication Sig Dispense Refill [...] by mouth at bedtime. 90 Tablet 3 Atorvastatin Calcium 40 MG Oral Tablet (Lipitor) TAKE 1 TABLET BY MOUTH EVERY DAY 90 Tablet 3 Pantoprazole Sodium 40 MG Oral Tablet Delayed Release (Protonix) TAKE 1 TABLET BY MOUTH TWO TIMES DAILY LORazepam 0.5 MG Oral Tablet (Ativan) Take 1 Tablet by mouth every 8 hours as needed for Anxiety. 21 Tablet 0 Sertraline HCl 50 MG Oral Tablet (Zoloft) 0.5 pill by mouth once a day for 2 weeks then 1 pill daily 30 Tablet 1 Ferrous Sulfate 325 (65 Fe) MG Oral Tablet (Feosol) Take 1 Tablet by mouth every other day. Diclofenac Sodium 1 % External Gel (Voltaren) Apply 2 gm to the hands bilaterally every 6 hours as needed for pain (Patient not taking: Reported on 12/23/2023) Cyclobenzaprine HCl 5 MG Oral Tablet (Flexeril) TAKE 1 TABLET BY MOUTH EVERY 8 HOURS NEEDED FOR MUSCLE SPASMS (Patient not taking: Reported on 12/23/2023) busPIRone HCl 10 MG Oral Tablet (Buspar) Take 1 Tablet by mouth in the morning and 1 Tablet before bedtime. (Patient not taking: Reported on 12/23/2023) 60 Tablet 0 No current facility-administered medications for this visit. Review of patient's allergies indicates: No Known Allergies Health Maintenance Due Topic Date Due Zoster Vaccines (1 of 2) Never done DTaP,Tdap,and Td Vaccines (1 - Tdap) 12/27/2009 *ADVANCE DIRECTIVE NOT ON FILE Never done COVID-19 Vaccine ( season) 2023 *BISPHONATE OR OTHER ACCEPTABLE MEDICATION NEEDED FOR OSTEOPOROSIS (REFER TO SMARTSET #1146) Never done Depression, Most Recent Score >= 10 (will fire each visit until score < 10) 12/18/2023 ROS: CONSTITUTIONAL: No fevers, sweats, or chills GASTROINTESTINAL: No abdominal pain, No change in bowel habits, No significant heartburn, No significant change in appetite, No nausea, vomiting, diarrhea, or constipation, No hematemesis, No blood in stools or black tarry stools, No abdominal bloating or early satiety, and No dysphagia ALL OTHER SYSTEMS NEGATIVE I reviewed social, PMH, PSH, and family history and updated where needed. 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 No mold. 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; Social Determinants of Health Financial Resource Strain: Not on file Food Insecurity: No Food Insecurity (12/17/2023) Hunger Vital Sign Worried About Running Out of Food in the Last Year: Never true Ran Out of Food in the Last Year: Never true Transportation Needs: Not on file Physical Activity: Not on file Stress: Not on file Social Connections: Not on file Intimate Partner Violence: Not on file Housing Stability: Not on file Past Medical History: Diagnosis Date YURY inhibitor intolerance low blood pressure Acute inferior myocardial infarction (HCC) 2002 Beta-blockers contraindicated Bradycardia 12/01/2008 COPD (chronic obstructive pulmonary disease) (HCC) COPD, mild (HCC) 04/05/2012 Coronary atherosclerosis 10/06/2008 Dyslipidemia, goal LDL below 70 10/02/2011 Gout 05/31/2013 History of 2019 novel coronavirus disease (COVID-19) 02/26/2022 History of alcohol dependence ([facility]) 03/05/2017 History of cigarette smoking 02/26/2022 History of pulmonary embolism 02/26/2022 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 PAD (peripheral artery disease) ([facility]) 09/23/2022 Personal history of alcoholism ([facility]) sober since 10/1978 Past Surgical History: Procedure Laterality Date COLONOSCOPY, DIAGNOSTIC (RECTUM) 06/19/2021 normal bx / COLONOSCOPY FLEXIBLE PROXIMAL DIAGNOSTIC performed by Shelly Phillip MD at ENDOSCOPY [facility] COLORECTAL CANCER SCREEN; NOT AT RISK 04/17/09 done diverticulosis,a single non-bleeding colonic angioectasia DENTAL SURGERY PROCEDURE NEC 07/20/2013 EGD, FLEXIBLE, DIAGNOSTIC 06/19/2021 duodenal diverticulum,gastric heterotopia, reflux esophagitis / ESOPHAGOGASTRODUODENOSCOPY (EGD), FLEXIBLE, TRANSORAL, DIAGNOSTIC performed by Shelly Phillip MD at ENDOSCOPY [facility] INSERTION OF LENS PROSTHESIS 07/20/2001 Family History Problem Relation Name Age of Onset Cancer Mother , lung No Past Hx Father alcoholic Heart Disorder Father [place] at 61 No Past Hx Brother OBJECTIVE: PHYSICAL EXAM: BP 124/64 | Pulse 64 | Temp 35.7 C (96.3 F) (Tympanic) | Ht 1.702 m (5' 7") | Wt 59.1 kg (130 lb 4.8 oz) | SpO2 97% | BMI 20.41 kg/m | BSA 1.67 m General: alert, healthy, and no distress Head: Normocephalic, No masses, lesions, tenderness or abnormalities Heart: regular rate & rhythm, no murmur, no gallops, PMI non-displaced, S-1 normal, and S-2 normal Lungs: normal respiratory rate and rhythm, lungs clear to auscultation Psych: normal affect, no flight of ideas or tangential thought, good eye contact, no pressured speech ER visit: The patient is an 87-year-old male who presented to the emergency department for an evaluation of anxiety. The patient has a history of a recent GI bleed. He was admitted to the hospital for this. The patient was seen by his family doctor today with significant psychiatric symptoms including anxiety and was sent to the emergency department for further evaluation. I discussed the patient's laboratory results with him. A the patient was evaluated by the mental health vocational case manager. At this time noinpatient needs were identified. The patient was having very severe anxiety. He has multiple issuesgoing on right now. He was requesting something to help him with his anxiety. Given the patient's lack of follow-up at this time I did offer to prescribe him a low-dose of something for anxiety but he was advised to only take it 1-2 times a day. He was advised to follow-up with his family doctor and I also warned him that his family doctor may not want to continue this medication given his age. He was also encouraged to only take the medication when he was able to be with somebody in monitor. He was also encouraged to call crisis or return to the emergency department immediately if symptoms change worsen or the need arises. I reviewed last cbc, iron, gfr 12/22/23 gi: ASSESSMENT AND PLAN: Juan Vazquez is a [...] eval bladder abnormality found in CT scan ASSESSMENT: F41.1 JAN (generalized anxiety disorder) (primary encounter diagnosis) N32.9 Lesion of bladder R71.0 Decreased hemoglobin PLAN: JAN (generalized anxiety disorder) (Primary) - LORazepam 0.5 MG Oral Tablet (Ativan); Take 1 Tablet by mouth every 8 hours as needed for Anxiety. - Sertraline HCl 50 MG Oral Tablet (Zoloft); 0.5 pill by mouth once a day for 2 weeks then 1 pill daily Ativan working well, seems improved. Can continue short term as working Discussed ssri, agrees. The potential side effects of this medication have been discussed with the patient. Call if any significant problems with these are experienced. I have reviewed the patients controlled substance dispensing history in the Prescription Drug Monitoring Program in compliance with the [facility] regulations before prescribing a controlled substance. Lesion of bladder Await cystoscope Decreased hemoglobin - CBC WITH WBC DIFFERENTIAL; Future; Expected date: 01/22/2024 - IRON SCREEN, INCLUDING TIBC; Future; Expected date: 01/22/2024 - FERRITIN; Future; Expected date: 01/22/2024 Cut iron back from daily to every other day Recheck 3 weeks Follow Up: Return if symptoms worsen or fail to improve and as scheduled.. Ciro Zayas MD documented in this encounter Nursing Notes * Nicolasa Morgan MED ASSIST - 12/23/2023 11:20 AM EDT Chief Complaint Patient presents with Emergency Department Follow-Up Pt presented to [facility] ER on 12/16 for increased anxiety. Pt states what he was given, ativan, works great for him and he has been doing good since discharge documented in this encounter Plan of Treatment Upcoming Encounters Date Type Department Care Team (Late st Contact Info) Description 01/05/2024 8:30 AM EDT Office Visit Cardiology, [facility] [address] [facility] [place] [address] Divya Haskins CRNP [address] [facility] [place] [address] 01/11/2024 2:00 PM EDT Procedure Only Urology, [facility] [address] [facility] [place] [address] Francisco Beltrán MD [address] [facility] [address] [place] [address] 05/16/2024 9:40 AM EDT Office Visit General Internal Medicine [facility] [address] [facility] [place] [address] Ciro Zayas MD [address] [place] [address] 06/13/2024 9:30 AM EST Imaging Radiology, [address] [place] [address] 07/18/2024 10:00 AM EST Office Visit Rheumatology [address] [place] [address] Jerad Connelly CRNP [address] [place] [address] [place] [address] 10/21/2024 9:30 AM EDT Imaging Vascular Lab, [facility] [address] [facility] [place] [address] 10/24/2024 10:40 AM EDT Office Visit Dermatology [facility] [place] [address] [place] [address] Jacquelin Muñoz PA-C [address] [place] [address] Scheduled Orders Name Type Priority Associated Diagnoses Orde r Schedule CBC WITH WBC DIFFERENTIAL Lab Routine Decreased hemoglobin Expected: 01/22/2024 (Approximate), Expires: 12/22/2024 IRON SCREEN, INCLUDING TIBC Lab Routine Decreased hemoglobin Expected: 01/22/2024 (Approximate), Expires: 12/22/2024 FERRITIN Lab Routine Decreased hemoglobin Expected: 01/22/2024 (Approximate), Expires: 12/22/2024 Health Maintenance Due Date Last Done Comments [...] D LEVEL ONCE IN A LIFETIME-USE SMARTSET# [id number] Completed 07/16/2023, 05/27/2021, 05/18/2020, Additional history exists [...] (generalized anxiety disorder)- Primary Generalized anxiety disorder Lesion of bladder Unspecified disorder of bladder Decreased hemoglobin Anemia, unspecified documented in this encounter Care Teams Window Cleaner Relationship Specialty Start Date End Date Ciro Zayas MD [address] [place] [address] PCP - General Internal Medicine 09/20/10 documented as of this encounter
[2024-04-08 07:24] LABS: Basophils # (auto) 0.07 K/uL (0.00-0.20); Eosinophils # (auto) 0.49 K/uL (0.00-0.50); Hematocrit (blood only) 35.5 % (42.0-52.0); Hemoglobin 11.9 g/dl (14.0-18.0); Immature Granulocytes # (auto) 0.01 K/uL (0.01-0.20); Immature Granulocytes % (auto) 0.1 %; Lymphocytes # (auto) 1.77 K/uL (1.20-3.40); Lymphocytes % (auto) 25.1 %; Mean Corpuscular Hemoglobin 29.5 pg (25.0-34.0); Mean Corpuscular Hgb Conc 33.5 g/dL (32.0-36.0); Mean Corpuscular Volume 88.1 fL (80.0-100.0); Mean Platelet Volume 9.5 fL (9.4-12.4); Monocytes # (auto) 0.93 K/uL (0.11-0.59); Monocytes % (auto) 13.2 %; Neutrophils # (auto) 3.78 K/uL (1.40-6.50); Neutrophils % (auto) 53.6 %; Platelet Count 179 K/uL (130-400); RDW Coefficient of Variation 13.2 % (11.5-14.5); RDW Standard Deviation 42.3 fL (36.4-46.3); Red Blood Count 4.03 M/uL (4.70-6.10); White Blood Count 7.05 K/ul (4.8-10.8)
[2024-04-08 07:36] LABS: BUN Creatinine Ratio 11.6 (10-20); Calcium 8.2 mg/dl (8.6-10.3); Creatinine Clr Calc Pharmacy 18.2 ml/min; Est GFR (Non-African American) 78.5 ml/min; Potassium 4.1 mmol/L (3.5-5.1)
[2024-04-08] MEDS: FINASTERIDE 5 MG TAB PO SCH (08:46)
[2024-04-08] MEDS: SULFAMETHOXAZOLE/TRIMETHOPRIM DS 800/160MG TAB PO SCH (08:46)
[2024-04-08] MEDS: PANTOprazole 40 MG TAB PO SCH (08:46)
[2024-04-08] MEDS: ATORVASTATIN 40 MG TAB PO SCH (08:46)
[2024-04-08] MEDS: SERTRALINE HCL 100 MG TABLET PO SCH (08:47)
[2024-04-08] MEDS: HEPARIN SOD 5,000 UNIT/0.5 ML VIAL SQ SCH (08:51)
--- NOTE | 2024-04-08 12:26 | Electrocardiogram Report ---
Test Reason : Blood Pressure : */* mmHG Vent. Rate : 61 BPM Atrial Rate : 61 BPM P-R Int : 144 ms QRS Dur : 80 ms QT Int : 446 ms P-R-T Axes : 67 58 63 degrees QTcB Int : 448 ms Normal sinus rhythm Nonspecific ST abnormality Abnormal ECG When compared with ECG of 03-Dec-2023 07:43, Premature ventricular complexes are no longer Present Vent. rate has decreased by 35 bpm T wave amplitude has increased in Lateral leads Confirmed by Sabas Higgins ([id number]) on 04/08/2024 12:25:53 PM Referred By: REFERRED SELF Confirmed By: Sabas Higgins
[2024-04-08] MEDS: amLODIPine BESYLATE 5 MG TAB PO ONE (15:43)
--- NOTE | 2024-04-08 16:23 | Hospitalist Progress Note ---
Date of Service April 08, 2024 Assessment & Plan (1) Dizziness: Plan: Per admitting service notes with addendum: 88-year-old male with past med history significant for GI bleed, COPD, hyperlipidemia, history of dizziness, who was admitted in November 2023 with upper GI bleed and required 1 unit of PRBC, s/pEGD found ulcer in duodenal bulb and during that admission also found to have bladder lesion concerning for urothelial malignancy on CAT scan and outpatient follow-up with urology and 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 Patient having Dizziness and Weakness. Patient Seems to Been Anxious in the ER. Currently Received Ativan for Anxiety and Somewhat Drowsy. Patient Denies Any Headache. No Blurred Vision. No Runny Nose or Sore Throat. No Cough. No Chest Pain or Shortness of Breath. No Nausea. No Abdominal Pain. Normal Bowel and Bladder Movements As per Patient. No Hematuria As per Patient. Hemodynamics Are Okay. Dizziness, From uncontrolled hypertension? CT head okay Recently on 04/06 had cystoscopy and TURBT and is on Bactrim Orthostatics Gentle fluids If persistent will get MRI and neuroconsult Monitor in med/telemetry 04/08 Blood pressure noted to be in the systolic 170s Start amlodipine 5 mg p.o. daily Monitor blood pressure closely Repeat CT head tomorrow, patient states he will not be able to tolerate a brain MRI Right inguinal hernia Episodes of diarrhea Check CT abdomen and pelvis History of COPD Seems stable Will monitor Hyperlipidemia On statin BPH Finasteride Recent GI bleed EGD showed ulcer in duodenal bulb Hemoglobin stable at 13 Continue Protonix Depression Zoloft High grade bladder cancer s/p TURBT followup with urology. Urinalysis: No signs of UTI DVT prophylaxis Heparin subcu Disposition Anticipate discharge to home when medically stable Full code Admission and Anticipated Discharge Date Admission Date: April 08, 2024 Subjective Follow-up for dizziness, etc. Seen resting in bed, comfortable, not in distress States he feels better compared to yesterday Dizziness mostly resolved Denies focal weakness or numbness or any other new neurologic deficits Ambulating in the room with no issues Does report alternating diarrhea and small stools at home Reports right lower quadrant inguinal hernia, but denies abdominal pain Also reporting urinary urgency but no fevers or chills, nausea vomiting, etc. No other new symptoms Review of Systems Review of Systems: all noted and negative except for above Physical Exam Physical Exam: General- oriented x 3, not in distress, speaks in sentences with no effort or accessory muscle use Eyes- anicteric Neck- no JVD Lungs- clear breath sounds bilaterally, no rales/wheezes Heart- normal rate, regular rhythm; no murmurs Abdomen- normal bowel sounds, nondistended, soft, nontender Right inguinal hernia: small, Reducible Nontender Extremities- no pretibial edema, no calf tenderness Neuro- alert, oriented x 3; no gross focal neurologic deficits Skin- warm & dry Results & Data Results & Data Vital Signs (Past 12 Hours) Vital Signs Temp Pulse Pulse Resp BP Pulse Ox Pulse Ox 04/08/24 15:41 36.6 C 68 20 160/75 H 94 04/08/24 12:06 37.1 C 68 18 113/78 94 04/08/24 09:27 60 04/08/24 08:12 36.4 C L 101 H 20 162/79 H 91 04/08/24 04:30 04/08/24 04:30 36.4 C L 57 L 18 147/65 H 92 04/08/24 04:30 36.4 C L 57 L 16 147/65 H 92 04/08/24 04:30 92 O2 Del Method O2 Del Method 04/08/24 15:41 Room Air 04/08/24 12:06 Room Air 04/08/24 09:27 04/08/24 08:12 Room Air 04/08/24 04:30 Room Air 04/08/24 04:30 Room Air 04/08/24 04:30 Room Air 04/08/24 04:30 Room Air all noted and reviewed including below
--- NOTE | 2024-04-08 16:45 | CT Scan Report ---
CT OF THE ABDOMEN AND PELVIS WITHOUT CONTRAST CLINICAL HISTORY: inguinal hernia r/o obstruction, r/o mass COMPARISON STUDY: CT of the abdomen and pelvis December 03, 2023. TECHNIQUE: Axial images of the abdomen and pelvis were obtained without IV contrast. Images were revi ewed in the axial, sagittal, and coronal planes. Automated exposure control was utilized for the kai dy. A dose lowering technique was utilized adhering to the principles of ALARA. FINDINGS: Emphysema within the lower lungs is incidentally noted. The heart is mildly enlarged. There is no pneumatosis, free air or portal venous gas. No renal, ureteral or bladder calculi are present. Asymmetric right lateral bladder wall thickening is again noted. No evidence for a bowel obstruction . Bilateral inguinal hernias, right larger left, contains small bowel loops. These do not result in a bowel obstruction. Colonic diverticulosis. No evidence for acute diverticulitis. Unenhanced images o f the liver, spleen, adrenal glands and pancreas are unremarkable. The gallbladder is mildly distende d. There is no pericholecystic infiltration. 3 cm infrarenal abdominal aortic aneurysm is unchanged. No evidence for rupture. There is no lymphadenopathy. There are no fluid collections. IMPRESSION: 1. Bowel containing bilateral inguinal hernias, right larger than left. No resultant bowel obstructio n. 2. Colonic diverticulosis. No evidence for acute diverticulitis. 3. Persistent asymmetric right lateral bladder wall thickening. Underlying urothelial lesion cannot b e excluded. 4. No change in a 3 cm infrarenal abdominal aortic aneurysm. ACT 112: Negative or not required by law. Electronically signed by: Christopher Lopez M.D. 04/08/2024 4:43 PM
[2024-04-08] MEDS: CHOLECALCIFEROL 25 MCG (1000 UNITS) TAB PO SCH (22:20)
[2024-04-08] MEDS: traZODone HCL 50 MG TAB PO SCH (22:21)
[2024-04-09] MEDS: amLODIPine BESYLATE 5 MG TAB PO SCH (09:41)
--- NOTE | 2024-04-09 12:38 | CT Scan Report ---
CT head/brain wo con CLINICAL HISTORY: 88 years-old Male with dizziness episode, r/o CVA. Acute dizziness with stroke lik e symptoms TECHNIQUE: Multiple axial CT images of the head were obtained without contrast. A dose lowering tech nique was utilized adhering to the principles of ALARA. CT DOSE: 602.38 mGy.cm COMPARISON: 04/07/2024, 12/03/2023. FINDINGS: No acute intracranial hemorrhage, midline shift, intracranial mass, hydrocephalus, territorial ischem ia or abnormal extra-axial collection. Involutional changes with chronic microvascular ischemic disea se. Senescent calcifications of the basal ganglia. The calvarium is intact. The paranasal sinuses, mastoid air cells, and middle ear cavities are clear . IMPRESSION: No acute intracranial abnormality. ACT 112: Negative or not required by law. The above report was generated using voice recognition software. It may contain grammatical, syntax o r spelling errors. Electronically signed by: Perez Conway M.D. 04/09/2024 12:37 PM
[2024-04-09] MEDS: lisinopril 5 MG TAB PO ONE (13:31)
[2024-04-09] MEDS: LORazepam 0.5 MG TAB PO STA (14:52)
--- NOTE | 2024-04-09 17:29 | Hospitalist Progress Note ---
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 Patient having Dizziness and Weakness. Patient Seems to Been Anxious in the ER. Currently Received Ativan for Anxiety and Somewhat Drowsy. Patient Denies Any Headache. No Blurred Vision. No Runny Nose or Sore Throat. No Cough. No Chest Pain or Shortness of Breath. No Nausea. No Abdominal Pain. Normal Bowel and Bladder Movements As per Patient. No Hematuria As per Patient. Hemodynamics Are Okay. Dizziness, From uncontrolled hypertension? CT head okay Recently on 04/06 had cystoscopy and TURBT and is on Bactrim Orthostatics Gentle fluids If persistent will get MRI and neuroconsult Monitor in med/telemetry 04/08 Blood pressure noted to be in the systolic 170s Start amlodipine 5 mg p.o. daily Monitor blood pressure closely Repeat CT head tomorrow, patient states he will not be able to tolerate a brain MRI 04/[address] head: No acute process Blood pressure still not at goal Add lisinopril 5 mg p.o. daily Continue amlodipine 5 mg daily Monitor blood pressure Right inguinal hernia Episodes of diarrhea Check CT abdomen and pelvis: No obstruction Positive right inguinal hernia, no strangulation No masses noted Will need GI referral for chronic intermittent diarrhea History of COPD stable Hyperlipidemia On statin BPH Finasteride Recent GI bleed EGD showed ulcer in duodenal bulb Hemoglobin stable at 13 Continue Protonix Depression Zoloft High grade bladder cancer s/p TURBT followup with urology. Urinalysis: No signs of UTI DVT prophylaxis Heparin subcu Disposition Anticipate discharge to home when medically stable Full code Admission and Anticipated Discharge Date Admission Date: April 08, 2024 Subjective Seen resting in bed, comfortable, not in distress Still having some dizziness today No focal neurologic deficits No abdominal pain No other new symptoms Review of Systems Review of Systems: all noted and negative except for above Physical Exam Physical Exam: General- oriented x 3, not in distress, speaks in sentences with no effort or accessory muscle use Eyes- anicteric Neck- no JVD Lungs- clear breath sounds bilaterally, No crackles or wheezing Heart- normal rate, regular rhythm; no murmurs Abdomen- normal bowel sounds, nondistended, soft, nontender Extremities- no pretibial edema, no calf tenderness Neuro- alert, oriented x 3; no gross focal neurologic deficits Skin- warm & dry Results & Data Results & Data Vital Signs (Past 12 Hours) Vital Signs Temp Pulse Pulse Resp BP Pulse Ox O2 Del Method 04/09/24 15:18 36.5 C 64 20 124/61 96 Room Air 04/09/24 15:06 72 04/09/24 11:23 36.4 C L 56 L 20 166/75 H 98 Room Air 04/09/24 08:06 36.6 C 55 L 20 161/72 H 96 Room Air 04/09/24 07:19 66 all noted and reviewed including below
[2024-04-10] MEDS: lisinopril 5 MG TAB PO SCH (09:26)
--- NOTE | 2024-04-10 14:58 | Hospitalist Progress Note ---
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 Patient having Dizziness and Weakness. Patient Seems to Been Anxious in the ER. Currently Received Ativan for Anxiety and Somewhat Drowsy. Patient Denies Any Headache. No Blurred Vision. No Runny Nose or Sore Throat. No Cough. No Chest Pain or Shortness of Breath. No Nausea. No Abdominal Pain. Normal Bowel and Bladder Movements As per Patient. No Hematuria As per Patient. Hemodynamics Are Okay. Dizziness, From uncontrolled hypertension? CT head okay Recently on 04/06 had cystoscopy and TURBT and is on Bactrim Orthostatics Gentle fluids If persistent will get MRI and neuroconsult Monitor in med/telemetry 04/08 Blood pressure noted to be in the systolic 170s Start amlodipine 5 mg p.o. daily Monitor blood pressure closely Repeat CT head tomorrow, patient states he will not be able to tolerate a brain MRI 04/[address] head: No acute process Blood pressure still not at goal Add lisinopril 5 mg p.o. daily Continue amlodipine 5 mg daily Monitor blood pressure 04/10 Blood pressure now at goal Dizziness resolving Continue to monitor blood pressure Right inguinal hernia Episodes of diarrhea Check CT abdomen and pelvis: No obstruction Positive right inguinal hernia, no strangulation No masses noted Will need GI referral for chronic intermittent diarrhea History of COPD stable Hyperlipidemia On statin BPH Finasteride Recent GI bleed EGD showed ulcer in duodenal bulb Hemoglobin stable at 13 Continue Protonix Depression Zoloft High grade bladder cancer s/p TURBT followup with urology. Urinalysis: No signs of UTI DVT prophylaxis Heparin subcu Disposition Anticipate discharge to home when medically stable Full code Admission and Anticipated Discharge Date Admission Date: April 08, 2024 Subjective Seen resting in bed, comfortable, not in distress States he feels improved today No dizziness but feels weak/tired No other new symptoms Review of Systems Review of Systems: all noted and negative except for above Physical Exam Physical Exam: General- oriented x 3, not in distress, speaks in sentences with no effort or accessory muscle use Eyes- anicteric Neck- no JVD Lungs- clear breath sounds bilaterally, no crackles/wheezing Heart- normal rate, regular rhythm; no murmurs Abdomen- normal bowel sounds, nondistended, soft, no tenderness Extremities- no pretibial edema, no calf tenderness Neuro- alert, oriented x 3; no gross focal neurologic deficits Skin- warm & dry Results & Data Results & Data Vital Signs (Past 12 Hours) Vital Signs Temp Pulse Pulse Resp BP Pulse Ox O2 Del Method 04/10/24 14:44 76 04/10/24 11:00 36.3 C L 66 18 110/66 94 Room Air 04/10/24 07:30 36.4 C L 56 L 18 127/68 93 Room Air 04/10/24 07:18 47 L 04/10/24 03:32 36.3 C L 58 L 18 106/55 L 95 Room Air all noted and reviewed including below
[2024-04-10] MEDS: HYDROCORTISONE 2.5% CR 30 GM TUBE EXT SCH (22:54)
--- NOTE | 2024-04-11 00:22 | Communication Note ---
Date of Service: April 11, 2024 Notified by RN of abnormal orthostatic VS. SBP 80s - 90s as per RN. Patient worried about BP. AP Hypotension IVF Hold amlodipine for now
[2024-04-11] MEDS: LACTATED RINGER'S 1,000 ML IV ONE (00:50)
[2024-04-11] MEDS ORDERED: POLYETHYLENE (MIRALAX) 17 GM PACK PO PRN (11:56)
[2024-04-11] MEDS: POLYETHYLENE (MIRALAX) 17 GM PACK PO ONE (12:09)
--- NOTE | 2024-04-11 15:10 | Hospitalist Progress Note ---
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 Patient having Dizziness and Weakness. Patient Seems to Been Anxious in the ER. Currently Received Ativan for Anxiety and Somewhat Drowsy. Patient Denies Any Headache. No Blurred Vision. No Runny Nose or Sore Throat. No Cough. No Chest Pain or Shortness of Breath. No Nausea. No Abdominal Pain. Normal Bowel and Bladder Movements As per Patient. No Hematuria As per Patient. Hemodynamics Are Okay. Dizziness, From Hypertensive urgency CT head okay Recently on 04/06 had cystoscopy and TURBT and is on Bactrim Orthostatics Gentle fluids If persistent will get MRI and neuroconsult Monitor in med/telemetry 04/08 Blood pressure noted to be in the systolic 170s Start amlodipine 5 mg p.o. daily Monitor blood pressure closely Repeat CT head tomorrow, patient states he will not be able to tolerate a brain MRI 04/[address] head: No acute process Blood pressure still not at goal Add lisinopril 5 mg p.o. daily Continue amlodipine 5 mg daily Monitor blood pressure 04/10 Blood pressure now at goal Dizziness resolving Continue to monitor blood pressure 04/11 Blood pressure now on the lower side Positive orthostasis during Occupational Therapy eval Stop antihypertensives Gentle IV fluids Possibly having an episode of hypertension initially on admission and now returning to baseline? monitor closely Right inguinal hernia Episodes of diarrhea CT abdomen and pelvis: No obstruction Positive right inguinal hernia, no strangulation No masses noted Will need GI referral for chronic intermittent diarrhea History of COPD stable Hyperlipidemia On statin BPH Finasteride Recent GI bleed EGD showed ulcer in duodenal bulb Hemoglobin stable at 13 Continue Protonix Depression Zoloft, Trazodone Discussed with psychiatry service regarding patient's concern regarding interaction of his psych meds Consult placed for psychiatry High grade bladder cancer s/p TURBT followup with urology. Urinalysis: No signs of UTI DVT prophylaxis Heparin subcu Disposition Anticipate discharge to home when medically stable Full code Admission and Anticipated Discharge Date Admission Date: April 08, 2024 Subjective Follow-up for dizziness, etc. Seen resting in bed, not in distress, somewhat anxious States he feels weak, unsteady with walking today Concerned about possible serotonin syndrome from his trazodone and sertraline w hich has been increased recently Reports multiple symptoms including forgetfulness, intermittent blurring of vision No other new symptoms Review of Systems Review of Systems: all noted and negative except for above Physical Exam Physical Exam: General- oriented x 3, not in distress, speaks in sentences with no effort or accessory muscle use Eyes- anicteric Neck- no JVD Lungs- clear breath sounds bilaterally, no rales/wheezes Heart- normal rate, regular rhythm; no murmurs Abdomen- normal bowel sounds, nondistended, soft, no tender Extremities- no pretibial edema, no calf tenderness Neuro- alert, oriented x 3; no gross focal neurologic deficits Skin- warm & dry Results & Data Results & Data Vital Signs (Past 12 Hours) Vital Signs Temp Pulse Pulse Resp BP Pulse Ox O2 Del Method 04/11/24 13:02 79 04/11/24 11:12 36.6 C 72 20 109/67 95 Room Air 04/11/24 08:08 36.7 C 65 18 134/63 93 Room Air 04/11/24 07:50 Room Air 04/11/24 07:00 48 L 04/11/24 03:44 36.7 C 59 L 16 127/56 L 94 Room Air all noted and reviewed including below
[2024-04-11] MEDS: SODIUM CHLORIDE 0.9% 1,000 ML IV SCH (15:18)
[2024-04-12 15:06] VITALS: TEMP 97.9
--- NOTE | 2024-04-12 15:50 | Hospitalist Progress Note ---
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 Patient having Dizziness and Weakness. Patient Seems to Been Anxious in the ER. Currently Received Ativan for Anxiety and Somewhat Drowsy. Patient Denies Any Headache. No Blurred Vision. No Runny Nose or Sore Throat. No Cough. No Chest Pain or Shortness of Breath. No Nausea. No Abdominal Pain. Normal Bowel and Bladder Movements As per Patient. No Hematuria As per Patient. Hemodynamics Are Okay. Dizziness, From Hypertensive urgency CT head okay Recently on 04/06 had cystoscopy and TURBT and is on Bactrim 04/08 Blood pressure noted to be in the systolic 170s Started amlodipine 5 mg p.o. daily 04/[address] head: No acute process Blood pressure still not at goal Added lisinopril 5 mg p.o. daily 04/10 Blood pressure now at goal Dizziness resolving Continue to monitor blood pressure 04/11 Blood pressure now on the lower side Positive orthostasis during Occupational Therapy eval Stop antihypertensives Gentle IV fluids Possibly having an episode of hypertension initially on admission and now returning to baseline? monitor closely 04/12 Blood pressure systolic 120s off blood pressure medications Dizziness resolving May not need to any antihypertensives as patient seems to have returned to his baseline blood pressure Continue to monitor overnight Right inguinal hernia Episodes of diarrhea CT abdomen and pelvis: No obstruction Positive right inguinal hernia, no strangulation No masses noted Will need GI referral for chronic intermittent diarrhea History of COPD stable Hyperlipidemia On statin BPH Finasteride Recent GI bleed EGD showed ulcer in duodenal bulb Hemoglobin stable at 13 Continue Protonix Depression Zoloft, Trazodone Discussed with psychiatry service regarding patient's concern regarding interaction of his psych meds Consult placed for psychiatry, may continue both medications as per psychiatry High grade bladder cancer s/p TURBT followup with urology Urinalysis: No signs of UTI DVT prophylaxis Heparin subcu Disposition Anticipate discharge to home Tomorrow blood pressure remains stable Full code Admission and Anticipated Discharge Date Admission Date: April 08, 2024 Subjective Follow-up for dizziness, etc. Seen resting in bed, comfortable, not in distress States he feels okay overall Still having some occasional dizziness but better than yesterday No other new focal neurologic deficits No other new symptom Review of Systems Review of Systems: all noted and negative except for above Physical Exam Physical Exam: General- oriented x 3, not in distress, speaks in sentences with no effort or accessory muscle use Eyes- anicteric Neck- no JVD Lungs- clear breath sounds bilaterally, no rales/wheezes Heart- normal rate, regular rhythm; no murmurs Abdomen- normal bowel sounds, nondistended, soft, nontender Extremities- no pretibial edema, no calf tenderness Neuro- alert, oriented x 3; no gross focal neurologic deficits Skin- warm & dry Results & Data Results & Data Vital Signs (Past 12 Hours) Vital Signs Temp Pulse Pulse Resp BP BP Pulse Ox 04/12/24 15:05 36.6 C 64 18 127/58 L 96 04/12/24 13:15 72 04/12/24 11:00 36.5 C 72 18 129/68 95 04/12/24 08:00 04/12/24 07:48 77 18 114/62 93 04/12/24 07:00 59 L O2 Del Method 04/12/24 15:05 Room Air 04/12/24 13:15 04/12/24 11:00 Room Air 04/12/24 08:00 Room Air 04/12/24 07:48 Room Air 04/12/24 07:00 all noted and reviewed including below
[2024-04-13 03:52] VITALS: O2SAT 95
[2024-04-13] MEDS: MECLIZINE 12.5 MG TAB PO PRN (08:21)
[2024-04-13 08:37] VITALS: BP 120/64; RESP 18
--- NOTE | 2024-04-13 09:56 | Discharge Summary ---
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 Patient having Dizziness and Weakness. Patient Seems to Been Anxious in the ER. Currently Received Ativan for Anxiety and Somewhat Drowsy. Patient Denies Any Headache. No Blurred Vision. No Runny Nose or Sore Throat. No Cough. No Chest Pain or Shortness of Breath. No Nausea. No Abdominal Pain. Normal Bowel and Bladder Movements As per Patient. No Hematuria As per Patient. Hemodynamics Are Okay. Past medical history. As mentioned above Past surgical history. Status post EGD. Status post colonoscopy Social history. Former smoker. No alcohol use. No drug use. Family history. Admission Exam Per Admitting Provider General- Not in acute distress Head- atraumatic Eyes- PERRL. ENT- oropharynx clear Neck- supple, no JVD. Lungs- clear to auscultation no wheezing or crackles Heart- regular rhythm; no murmur, no gallop. Abdomen- normal bowel sounds, soft, nontender, no distension Extremities- no pretibial edema, no erythema seen Neuro- somewhat drowsy but arousable; PERRL, no facial palsy; no dysarthria; motor 4/5 bilaterally; no pronator drift, coordination of movements normal, sensations intact. Principal Diagnosis Dizziness Hypertensive urgency Orthostasis Discharge Exam Constitutional + well hydrated; no acute distress Eyes PERRL, conjunctivae normal, anicteric sclerae ENMT external ear and nose normal, oropharynx normal Respiratory normal respiratory effort, lungs clear to auscultation Cardiovascular Rate/Rhythm: regular rate and regular rhythm Gastrointestinal (Abdomen) normal bowel sounds, soft, nontender, no hepatosplenomegaly Musculoskeletal no cyanosis or clubbing, extremities motor strength 5/5 Neurologic PERRL, EOMI, accommodation nl, no face palsy, no dysarthria Psychiatric A+Ox3, euthymic affect Discharge Data Allergies Allergy/AdvReac Type Severity Reaction Status Date / Time No Known Allergies Allergy Mild Unverified 12/03/23 10:27 Consultations 04/08/24 01:12 ED Decision to Admit Stat 04/11/24 13:08 Consult Behavioral Health Liaison Routine Ordered Studies 04/07/24 23:00 CT head/brain wo con Stat 04/08/24 15:03 CT abd pelvis wo con Routine 04/09/24 10:51 CT head/brain wo con Routine Hospital Course (1) Dizziness: 88-year-old male with past med history significant for GI bleed, COPD, hyperlipidemia, history of dizziness, who was admitted in November 2023 with upper GI bleed and required 1 unit of PRBC, s/pEGD found ulcer in duodenal bulb and during that admission also found to have bladder lesion concerning for urothelial malignancy on CAT scan and outpatient follow-up with urology and 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 Patient having Dizziness and Weakness. No Blurred Vision. No Runny Nose or Sore Throat. No Cough. No Chest Pain or Shortness of Breath. No Nausea. No Abdominal Pain. Normal Bowel and Bladder Movements As per Patient. No Hematuria As per Patient. Hemodynamics Are Okay. Dizziness, From Hypertensive urgency CT head did not show any acute abnormalities Recently on 04/06 had cystoscopy and TURBT and was on Bactrim Was started on antihypertensives and developed hypotension Antihypertensives were discontinued BP is currently normal Dizziness has resolved Patient does have orthostasis on getting up He was educated on getting up slowly Right inguinal hernia Episodes of diarrhea CT abdomen and pelvis: No obstruction Positive right inguinal hernia, no strangulation No masses noted History of COPD stable Hyperlipidemia On statin BPH Finasteride Recent GI bleed EGD showed ulcer in duodenal bulb Hemoglobin stable at 13 Continue Protonix Depression Zoloft, Trazodone High grade bladder cancer s/p TURBT followup with urology Total Time Total Time Spent Total Time Spent (In Minutes): 35 Total Time Includes: Examination of the Patient, Discharge Planning and Medication Reconciliation Discharge Plan Discharge Items Patient Disposition: Home - Self-Care Reason For Visit: DIZZINESS Discharge Diagnosis: Dizziness Hypertensive urgency Orthostasis Condition on Discharge: Good Activity: As commented below Non-emergency contact: Primary Care Provider Call non-emergency contact if: you have any medication questions and your symptoms worsen Follow-up/Referrals: Francisco Beltrán MD [Outside Practitioners] - (Date & Time 04/25/2024 3:45 PM Provider Francisco Beltrán MD Department Urology, [facility] ) Ciro Zayas MD [Primary Care Provider] - (Date & Time 04/15/2024 9:00 AM Provider Natacha Marie MD Department General Internal Medicine [facility] ) Diet: Regular Addtl Attending Provider Instructions: Mr Vazquez You came to the hospital with dizziness. You were initially noted to have high blood pressure. You were started on blood pressure meds and you had low blood pressure. Your blood pressure is normalized now. You are being discharged without any blood pressure medicine at this time. Please keep a home BP log for your Primary Doctor as we discussed. Please get up slowly as we discussed. Please ensure follow up with your Primary Doctor. It was a pleasure taking care of you. Pending Studies at Discharge: No Stand-Alone Forms: My [facility], Smoking Cessation Medications and DC Order Prescriptions: Continued atorvastatin 40 mg tablet 40 mg PO QAM cholecalciferol (vitamin D3) [Vitamin D3] 25 mcg (1,000 unit) Tablet 25 mcg PO HS sertraline 100 mg tablet 100 mg PO QAM sulfamethoxazole-trimethoprim 800-160 mg tablet 1 tab PO BID pantoprazole 40 mg tablet,delayed release (DR/EC) 40 mg PO QAM finasteride 5 mg tablet 5 mg PO QAM trazodone 50 mg tablet 50 mg PO HS sildenafil 100 mg tablet 100 mg PO DAILY MDD 100mg in 24 hours PRN (Reason: Sexual Activity) Rx Instructions: 1 TO 4 HOURS BEFORE INTERCOURSE. NO MORE THAN 1 DOSE IN 24 HOURS. fluoride (sodium) [PreviDent 5000 Booster Plus] 1.1 % paste 1 applic PO DAILY Rx Instructions: brush thoroughly once daily for 2 minutes, do not rince, spit out when done lorazepam [Ativan] 0.5 mg tablet 0.5 mg PO Q8H PRN (Reason: anxiety) Qty: 20 0RF Discharge Orders: Discharge Order (Routine); Ordered 04/13/24 Ordered By: Tara Díaz Admission Data Admit Date/Time: 04/08/24 02:45 Attending Provider: Tara Díaz I. Admit Provider: Ra David Primary Care Provider: Ciro Zayas Other Providers: Ra David; Noah Hardin Other Interventions: Discharge Summary Assessment (RN) Last Done: 04/13/24 10:42
[2024-04-13 11:09] VITALS: PULSE 69
== END 2024-04-13 12:03 | disposition home or self-care (01) | DRG 305 ==
LOC: ED 20:43 → SUATTDRO 04-08 02:45 → 2S 04-08 02:45 → 2N 04-08 20:58

== ENCOUNTER 2024-09-14 09:29 | Inpatient (IN) ==
--- NOTE | 2024-09-14 10:36 | XRay Report ---
XR chest 1V portable CLINICAL HISTORY: Dyspnea COMPARISON STUDY: 12/03/2023 FINDINGS: Heart size and pulmonary vasculature are normal. Stable findings of emphysema. Stable retic ular nodular opacity in the lung apices and pleural thickening in the apices. No new consolidation or pleural effusion. No pneumothorax. IMPRESSION: Emphysema without acute pneumonia. ACT 112: Negative or not required by law. Electronically signed by: Jayce Le M.D. 09/14/2024 10:34 AM
--- NOTE | 2024-09-14 10:42 | Emergency Department Note ---
Impression & Plan RAYMOND (dyspnea on exertion), Bradycardia, Elevated troponin ED Provider Note Provider: Trevor Ralph MD CHIEF COMPLAINT: Short of breath with exertion and dizzy HISTORY OF PRESENT ILLNESS: Patient is a 88-year-old gentleman past medical history significant for COPD, GI bleed, anemia, and palpitations coming in today complaint worsening shortness of breath and dizziness with exertion since yesterday. Has been having ongoing issues for some months. Did have GI bleed this past spring but he states that improved. Was not talking to his outpatient doctor and cardiology team and with his bradycardia he had a minute a pacemaker but sent in for cardiac evaluation with catheterization yesterday. Had a stent placed. Went home last night. States does not have symptoms at rest but when he gets up to even walk across a 10 foot wound is very short of breath and lightheaded. Has not fallen or syncopized. Denies chest pain. No significant cough or cold symptoms reported. PAST MEDICAL HISTORY: As noted above MEDICATIONS: Reviewed home medications SOCIAL HISTORY: Lives at home PHYSICAL EXAM: GENERAL: alert and oriented in no acute distress on stretcher Head: normocephalic and atraumatic EYES: No injection, discharge or icterus. NECK: Trachea midline. ENT: Mucous membranes pink and moist. LUNGS: Airway patent. No retractions. Breath sounds clear HEART: Regular rate and rhythm. No chest wall tenderness ABDOMEN: Soft and non-tender, without guarding or rebound. SKIN: Acyanotic, warm, dry, without rashes EXTREMITIES: Without swelling, tenderness or deformity NEUROLOGICAL: No focal deficits. No aphasia. No facial droop or slurred speech. EK bpm sinus rhythm frequent PVCs bigeminy without clear acute ST segment elevation or depression with a QTc of 450. CONTINUOUS CARDIAC MONITORING: was ordered and showed a heart rate of 30s to 60s bpm in bradycardia with frequent bigeminy/PVC Patient's laboratory studies and imaging reviewed. Differential includes Reactive airway disease, pneumonia, pneumothorax, COPD, CHF, infections, cardiac ischemia, pulmonary embolism, musculoskeletal, gastrointestinal, as well as other pathologies. IMPRESSION/MEDICAL DECISION MAKING: Patient well-appearing in no distress. EKG with bigeminy. Not hypotensive but relatively bradycardic. Patient states this has been an ongoing issue. History of COPD but not horribly wheezy at rest. Respiratory viral panel negative. No significant anemia today. No severe electrolyte abnormality. Not having chest pain. Did discuss with Dr. Cross of cardiology but seems unlikely this is related to his cath and ischemic in nature. Troponin is sent. CTA of the chest completed to exclude PE or other underlying occult respiratory issue. Given his significant dyspnea on exertion again do question if this could be symptomatic bradycardia. Again not unstable or hypotensive. Will bring in for further evaluation given his inability to do ADLs with his dyspnea on exertion and dizziness. No significant headache or numbness or tingling extremities or trauma and doubt acute intracranial bleed/CVA at this point. Troponin does return at 4961. Just had PCI yesterday. Again without STEMI and or chest pain do not believe this represents new occlusion likely elevated from his PCI. Evaluated by Dr. Cross in the emergency department had a limited echo without findings of significant effusion. Discussed with the hospitalist team here coming in for further evaluation. Troponin is downtrending on repeat. DIAGNOSIS: Dyspnea on exertion, bradycardia, elevated troponin DISPOSITION: Hospitalist will evaluate Patient was agreeable with this plan. Past Med/Surg History Problem List (Updated 09/14/24 @ 12:25 by Ingrid Collins PA-C) Elevated troponin (Acute) Bradycardia (Acute) RAYMOND (dyspnea on exertion) (Acute) Upper GI bleed Acute blood loss anemia Melena (Acute) Anemia (Acute) HLD (hyperlipidemia) COPD (chronic obstructive pulmonary disease) Medical History (Updated 09/14/24 @ 12:25 by Ingrid Collins PA-C) Dizziness Surgical History (Updated 09/14/24 @ 12:27 by Ingrid Collins PA-C) Hx of cystoscopy History of cardiac catheterization 09/13/24. Dr Cross History of esophagogastroduodenoscopy (EGD) History of colonoscopy Family History (Updated 09/14/24 @ 12:25 by Ingrid Collins PA-C) Mother Lung cancer Father Coronary heart disease Social History Smoking Status: Former smoker Tobacco Type: Cigarettes Cigarettes Per Day: 20; Second Hand Exposure: Yes; Do You Dip or Chew Tobacco: No; Hx Alcohol Use: No Hx Substance Use: No Preferred Language: Sami Communication Ability: Effective Security Team Lead Required: No Beliefs That Will Affect Care: None marital status: Current Living Situation: Family Current Living Situation Comment: lives with brother Feels Safe at Home: Yes Assistive Devices: Denture - Upper, Glasses and Hearing Aid - Bilateral Allergies Allergies Allergy/AdvReac Type Severity Reaction Status Date / Time No Known Allergies Allergy Mild Unverified 09/13/24 11:14 Home Meds Home Medications Medication Instructions Recorded Confirmed atorvastatin 40 mg tablet 40 mg PO HS 12/27/19 09/14/24 cholecalciferol (vitamin D3) 25 25 mcg PO DAILY 12/27/19 09/14/24 mcg (1,000 unit) tablet (Vitamin D3) fluoride (sodium) 1.1 % dental 1 applic PO DAILY 12/03/23 09/14/24 paste (PreviDent 5000 Booster Plus) trazodone 50 mg tablet 50 mg PO HS Insomnia 12/03/23 09/14/24 pantoprazole 40 mg tablet,delayed 40 mg PO QAM 04/08/24 09/14/24 release sertraline 100 mg tablet 50 mg PO QAM 04/08/24 09/14/24 famotidine 20 mg tablet 20 mg PO HS 09/13/24 09/14/24 finasteride 5 mg tablet 5 mg PO DAILY 09/13/24 09/14/24 fluticasone propionate 115 2 puff inhalation BID 09/13/24 09/14/24 mcg-salmeterol 21 mcg/actuation HFA inhaler nitroglycerin 0.4 mg sublingual 0.4 mg sublingual DIRECTED PRN 09/13/24 09/14/24 tablet Chest Pain albuterol sulfate 90 mcg/actuation 2 puff inhalation Q4H PRN 09/14/24 09/14/24 aerosol inhaler Shortness Of Breath Or Wheezing psyllium 1 packet PO DAILY 09/14/24 09/14/24 Previous Rx's Medication Instructions Recorded lorazepam 0.5 mg tablet (Ativan) 0.5 mg PO Q8H PRN anxiety #20 tabs 12/17/23 aspirin 81 mg tablet,delayed 81 mg PO DAILY #90 tabs 09/13/24 release clopidogrel 75 mg tablet 75 mg PO DAILY #30 tabs 09/13/24 Results & Data (ED) Vital Signs Vital Signs - 24 hr 09/14/24 09:29 09/14/24 09:29 09/14/24 10:14 Temperature 36.6 C Temperature Source Temporal Artery Scan Pulse Rate 41 L Pulse Rate [Apical] 60 Respiratory Rate 18 22 Blood Pressure 134/81 Blood Pressure [Left Arm] 143/47 H Blood Pressure Mean 98 Blood Pressure Mean [Left Arm] 79 Pulse Oximetry 95 95 Oxygen Delivery Method Room Air Room Air Sepsis Recent Fever Within 48 Hours No Sepsis New/Unexplained Change in Mental Status N/A Sepsis Action Taken by Nursing No Action Required 09/14/24 10:14 09/14/24 10:20 Temperature Temperature Source Pulse Rate 60 56 L Pulse Rate [Apical] Respiratory Rate 22 Blood Pressure Blood Pressure [Left Arm] Blood Pressure Mean Blood Pressure Mean [Left Arm] Pulse Oximetry 95 Oxygen Delivery Method Room Air Sepsis Recent Fever Within 48 Hours Sepsis New/Unexplained Change in Mental Status Sepsis Action Taken by Nursing Laboratory Data 09/14/24 10:11 09/14/24 10:11 Lab Results 09/14/24 09/14/24 09/14/24 Range/Units 10:11 10: 12:33 WBC 9.31 (4.8-10.8) K/ul RBC 4.43 L (4.70-6.10) M/uL Hgb 13.2 L (14.0-18.0) g/dl Hct 39.1 L (42.0-52.0) % MCV 88.3 (80.0-100.0) fL MCH 29.8 (25.0-34.0) pg MCHC 33.8 (32.0-36.0) g/dL RDW Std Deviation 44.5 (36.4-46.3) fL RDW Coeff of Ingrid 13.8 (11.5-14.5) % Plt Count 200 (130-400) K/uL MPV 10.1 (9.4-12.4) fL Immature Gran % (Auto) 0.2 % Neut % (Auto) 70.5 % Lymph % (Auto) 14.2 % [place] % (Auto) 9.9 % Eos % (Auto) 4.3 % Baso % (Auto) 0.9 % Neut # (Auto) 6.57 H (1.40-6.50) K/uL Lymph # (Auto) 1.32 (1.20-3.40) K/uL [place] # (Auto) 0.92 H (0.11-0.59) K/uL Eos # (Auto) 0.40 (0.00-0.50) K/uL Baso # (Auto) 0.08 (0.00-0.20) K/uL Immature Gran # (Auto) 0.02 (0.01-0.20) K/uL PT 11.4 (9.0-12.0) Seconds INR 1.1 (0.9-1.1) APTT 27 (21-31) Seconds PTT Ratio 1.0 Sodium 139 (136-145) mmol/L Potassium 4.5 (3.5-5.1) mmol/L Chloride 107 (98-107) mmol/L Carbon Dioxide 26 (21-32) mmol/L Anion Gap 6 (3-11) BUN 20 (6-23) mg/dl Creatinine 1.03 (0.6-1.4) mg/dl Est Cr Clr Drug Dosing 39.5 ml/min eGFR 70.74 BUN/Creatinine Ratio 19.4 (10-20) Glucose 92 (70-99(Fasting)) mg/dl Calcium 9.0 (8.6-10.3) mg/dl Magnesium 2.1 (1.7-2.4) mg/dl Total Bilirubin 0.7 (0.2-1.0) mg/dl AST 44 H (13-39) U/L ALT 18 (7-52) U/L Alkaline Phosphatase 67 (34-104) U/L Troponin I High Sens 4961.1 H* 4287.8 H* (0-20) pg/ml Total Protein 6.6 (6.0-8.3) gm/dl Albumin 4.0 (3.4-5.0) gm/dl Globulin 2.6 (2.5-4.0) gm/dl Albumin/Globulin Ratio 1.5 (0.9-2) Urine Color Dark Yellow Urine Appearance Clear (Clear) Urine pH 5.0 (4.5-7.5) Ur Specific [place] 1.033 H (1.000-1.030) Urine Protein 2+ H (Negative) Urine Glucose (UA) Negative (Negative) Urine Ketones 1+ H (Negative) Urine Blood 2+ H (Negative) Urine Nitrite Negative (Negative) Urine Bilirubin 1+ H (Negative) Urine Urobilinogen Negative (Negative) Ur Leukocyte Esterase 1+ H (Negative) Urine WBC (Auto) >50 H (0-5) /hpf Urine RBC (Auto) 11-20 H (0-2) /hpf U Hyaline Cast (Auto) 0-2 (0-2) /lpf U Epithel Cells (Auto) 6-10 H (0-2) /hpf Urine Bacteria (Auto) None Seen (None Seen) Adenovirus (PCR) Not Detected (NotDetected) B. pertussis DNA (PCR) Not Detected (NotDetected) B.parapertussis DNA PCR Not Detected (NotDetected) C. pneumoniae DNA (PCR) Not Detected (NotDetected) Coronavirus OC43 (PCR) Not Detected (NotDetected) Coronavirus HKU1 (PCR) Not Detected (NotDetected) Coronavirus 229E (PCR) Not Detected (NotDetected) SARS-CoV-2 (PCR) Not Detected (NotDetected) Coronavirus NL63 (PCR) Not Detected (NotDetected) Human Metapneumovir PCR Not Detected (NotDetected) Influenza Type A (PCR) Not Detected (NotDetected) Influenza Type B (PCR) Not Detected (NotDetected) M. pneumoniae (PCR) Not Detected (NotDetected) Parainfluenza 1 (PCR) Not Detected (NotDetected) Parainfluenza 2 (PCR) Not Detected (NotDetected) Parainfluenza 3 (PCR) Not Detected (NotDetected) Parainfluenza 4 (PCR) Not Detected (NotDetected) RSV (PCR) Not Detected (NotDetected) Entero/Rhino (PCR) Not Detected (NotDetected) Administered Medications Discontinued Medications Ioversol (Optiray 320 125ml) 112 ml IV ONCE ONE Stop: 09/14/24 11:27 Last Admin: 09/14/24 11:26 Dose: 112 ml Documented By: PRO Imaging Data Radiologist's Impression: Chest X-Ray 09/14/24 09:51 XR chest 1V portable CLINICAL HISTORY: Dyspnea COMPARISON STUDY: 12/03/2023 FINDINGS: Heart size and pulmonary vasculature are normal. Stable findings of emphysema. Stable reticular nodular opacity in the lung apices and pleural thickening in the apices. No new consolidation or pleural effusion. No pneumothorax. IMPRESSION: Emphysema without acute pneumonia. ACT 112: Negative or not required by law. Electronically signed by: Jayce Le M.D. 09/14/2024 10:34 AM Chest CTA 09/14/24 11:08 CT angio chest PE protocol CT DOSE: 384.3 mGy.cm HISTORY: 88 years-old Male with PE, raymond. Acute shortness of breath TECHNIQUE: Multiple CTA images of the chest were obtained after the intravenous administration of 112 ml Optiray. Coronal and sagittal MIPS were obtained from the axial data set and were submitted for review. All measurements were obtained according to NASCET criteria. A dose lowering technique was utilized adhering to the principles of ALARA. COMPARISON: Chest radiograph of same day, CTA chest 07/13/2021 FINDINGS: CTA: Cardiomegaly without pericardial effusion. Extensive coronary artery calcifications. The left heart structures are not opacified and therefore difficult to evaluate. Ectasia of the ascending thoracic aorta, 3.9 cm with moderate atherosclerosis. No pulmonary emboli. CT CHEST: Heterogeneous thyroid. No pathologically enlarged lymph nodes. Trace pleural effusions. Respiratory motion artifact limits the study. Severe pulmonary emphysema with biapical pleural-parenchymal scarring. Tracheobronchial secretions with bronchial wall thickening suggestive of bronchitis. Mild dependent bibasilar atelectasis. Irregular somewhat spiculated 7 mm subpleural solid nodule in the anterior left upper lobe on image 179 is new from prior. 4 mm fissural nodule left midlung on image 168 suggestive of a benign lymph node is unchanged. Partial distention with wall thickening of the stomach. Unremarkable soft tissues. No acute fracture. IMPRESSION: 1. No pulmonary emboli. 2. Severe emphysema with biapical pleural-parenchymal scarring. 3. Tracheobronchial secretions with bibasilar mucous plugging. 4. 7 mm irregular solid nodule of the subpleural left upper lobe is new from the prior study and favors scarring, however 6 month follow-up chest CT recommended. 5. No lymphadenopathy. Please refer to below summary of Fleischner criteria recommendations for follow- up of incidental CT nodules (Gail Dodge, Guidelines for management of small pulmonary nodules detected on CT scans: A statement from the Fleischner Society, Radiology 237: [phone].) SOLID NODULES Solitary nodule size: 6-8 mm * Low risk patients: follow-up at 6-12 months, then consider further follow-up at 18-24 months * high risk patients: initial follow-up CT at 6-12 months and then at 18-24 months if no change Note: newly detected indeterminate nodule in persons 35 years of age or older. * Low risk patients: minimal or absent history of smoking and/or other known risk factors * high risk patients: history of smoking or of other known risk factors (e.g. first degree relative with lung cancer, or exposure to asbestos, radon, uranium) * if a nodule up to 8 mm is partly solid or is ground glass further follow-up is required after 24 months to exclude possible slow growing adenocarcinoma (ADRIANA) ACT 112: Negative or not required by law. The above report was generated using voice recognition software. It may contain grammatical, syntax or spelling errors. Electronically signed by: Perez Conway M.D. 09/14/2024 12:10 PM Discharge Plan Visit Data Chief Complaint: Shortness of Breath/Dyspnea Stated Complaint: SOB ED Provider: Trevor Ralph Discharge Problem: RAYMOND (dyspnea on exertion), Bradycardia, Elevated troponin Patient Disposition: Being Evaluated by Hospitalist Forms Stand Alone Forms: [facility] Prescriptions Prescriptions: No Action atorvastatin 40 mg tablet 40 mg PO HS cholecalciferol (vitamin D3) [Vitamin D3] 25 mcg (1,000 unit) Tablet 25 mcg PO DAILY sertraline 100 mg tablet 50 mg PO QAM pantoprazole 40 mg tablet,delayed release (DR/EC) 40 mg PO QAM albuterol sulfate 90 mcg/actuation HFA aerosol inhaler 2 puff INHALATION Q4H PRN (Reason: Shortness Of Breath Or Wheezing) Metamucil Packet 1 packet PO DAILY Rx Instructions: mix into at least 8 oz of water or juice before administering trazodone 50 mg tablet 50 mg PO HS fluoride (sodium) [PreviDent 5000 Booster Plus] 1.1 % paste 1 applic PO DAILY Rx Instructions: brush thoroughly once daily for 2 minutes, do not rince, spit out when done lorazepam [Ativan] 0.5 mg tablet 0.5 mg PO Q8H PRN (Reason: anxiety) Qty: 20 0RF famotidine 20 mg Tablet 20 mg PO HS nitroglycerin 0.4 mg Tablet, Sublingual 0.4 mg sublingual DIRECTED PRN (Reason: Chest Pain) finasteride 5 mg Tablet 5 mg PO DAILY fluticasone propion-salmeterol 115-21 mcg/actuation Hfa Aerosol Inhaler 2 puff INHALATION BID aspirin 81 mg tablet,delayed release (DR/EC) 81 mg PO DAILY Qty: 90 3RF clopidogrel 75 mg tablet 75 mg PO DAILY Qty: 30 6RF Referrals Referrals: Ciro Zayas MD [Primary Care Provider] -
[2024-09-14 10:45] LABS: Basophils # (auto) 0.08 K/uL (0.00-0.20); Basophils % (auto) 0.9 %; Eosinophils % (auto) 4.3 %; Hematocrit (blood only) 39.1 % (42.0-52.0); Hemoglobin 13.2 g/dl (14.0-18.0); Immature Granulocytes # (auto) 0.02 K/uL (0.01-0.20); Immature Granulocytes % (auto) 0.2 %; Lymphocytes # (auto) 1.32 K/uL (1.20-3.40); Lymphocytes % (auto) 14.2 %; Mean Corpuscular Hemoglobin 29.8 pg (25.0-34.0); Mean Corpuscular Hgb Conc 33.8 g/dL (32.0-36.0); Mean Corpuscular Volume 88.3 fL (80.0-100.0); Mean Platelet Volume 10.1 fL (9.4-12.4); Monocytes # (auto) 0.92 K/uL (0.11-0.59); Monocytes % (auto) 9.9 %; Neutrophils # (auto) 6.57 K/uL (1.40-6.50); Neutrophils % (auto) 70.5 %; Platelet Count 200 K/uL (130-400); RDW Coefficient of Variation 13.8 % (11.5-14.5); RDW Standard Deviation 44.5 fL (36.4-46.3); Red Blood Count 4.43 M/uL (4.70-6.10); White Blood Count 9.31 K/ul (4.8-10.8)
[2024-09-14 11:02] LABS: Albumin Globulin Ratio 1.5 (0.9-2); BUN Creatinine Ratio 19.4 (10-20); Bilirubin,Total 0.7 mg/dl (0.2-1.0); Creatinine Clr Calc Pharmacy 39.5 ml/min; Globulin 2.6 gm/dl (2.5-4.0); Magnesium 2.1 mg/dl (1.7-2.4); Potassium 4.5 mmol/L (3.5-5.1); Total Protein 6.6 gm/dl (6.0-8.3)
[2024-09-14 11:04] LABS: Appearance Urine Clear (Clear); Bacteria Urine Automated None Seen (None Seen); Bilirubin Urine 1+ (Negative); Blood Urine 2+ (Negative); Cast Urine Automated 0-2 /lpf (0-2); Color Urine Dark Yellow; Glucose Urine UA Negative (Negative); Ketones Urine 1+ (Negative); Leukocyte Esterase Urine 1+ (Negative); Nitrite Urine Negative (Negative); Protein Urine 2+ (Negative); Specific Gravity Urine 1.033 (1.000-1.030); Urobilinogen Urine Negative (Negative); WBC Urine Automated >50 /hpf (0-5)
[2024-09-14] MEDS: OPTIRAY 320 125ml IV ONE (11:26)
[2024-09-14 11:28] LABS: INR 1.1 (0.9-1.1); Partial Thromboplastin Time 27 Seconds (21-31); Prothrombin Time 11.4 Seconds (9.0-12.0)
[2024-09-14 11:29] LABS: Adenovirus PCR Not Detected (NotDetected); Bordetella parapertussis PCR Not Detected (NotDetected); Bordetella pertussis PCR Not Detected (NotDetected); Chlamydia pneumoniae PCR Not Detected (NotDetected); Coronavirus 229E PCR Not Detected (NotDetected); Coronavirus CoV-2 (COVID19)PCR Not Detected (NotDetected); Coronavirus HKU1 PCR Not Detected (NotDetected); Coronavirus NL63 PCR Not Detected (NotDetected); Coronavirus OC43PCR Not Detected (NotDetected); Human Metapneumovirus PCR Not Detected (NotDetected); Influenza A PCR Not Detected (NotDetected); Influenza B PCR Not Detected (NotDetected); Mycoplasma pneumoniae PCR Not Detected (NotDetected); Parainfluenza Virus 1 PCR Not Detected (NotDetected); Parainfluenza Virus 2 PCR Not Detected (NotDetected); Parainfluenza Virus 3 PCR Not Detected (NotDetected); Parainfluenza Virus 4 PCR Not Detected (NotDetected); Respiratory Syncytial VirusPCR Not Detected (NotDetected); Rhinovirus/Enterovirus PCR Not Detected (NotDetected)
[2024-09-14 12:08] LABS: Troponin I High Sensitivity 4961.1 pg/ml (0-20)
--- NOTE | 2024-09-14 12:12 | CT Scan Report ---
CT angio chest PE protocol CT DOSE: 384.3 mGy.cm HISTORY: 88 years-old Male with PE, raymond. Acute shortness of breath TECHNIQUE: Multiple CTA images of the chest were obtained after the intravenous administration of 112 ml Optiray. Coronal and sagittal MIPS were obtained from the axial data set and were submitted for review. All measurements were obtained according to NASCET criteria. A dose lowering technique was u tilized adhering to the principles of ALARA. COMPARISON: Chest radiograph of same day, CTA chest 07/13/2021 FINDINGS: CTA: Cardiomegaly without pericardial effusion. Extensive coronary artery calcifications. The left heart s tructures are not opacified and therefore difficult to evaluate. Ectasia of the ascending thoracic ao rta, 3.9 cm with moderate atherosclerosis. No pulmonary emboli. CT CHEST: Heterogeneous thyroid. No pathologically enlarged lymph nodes. Trace pleural effusions. Respiratory m otion artifact limits the study. Severe pulmonary emphysema with biapical pleural-parenchymal scarrin g. Tracheobronchial secretions with bronchial wall thickening suggestive of bronchitis. Mild dependen t bibasilar atelectasis. Irregular somewhat spiculated 7 mm subpleural solid nodule in the anterior l eft upper lobe on image 179 is new from prior. 4 mm fissural nodule left midlung on image 168 suggest gwendolyn of a benign lymph node is unchanged. Partial distention with wall thickening of the stomach. Unremarkable soft tissues. No acute fracture. IMPRESSION: 1. No pulmonary emboli. 2. Severe emphysema with biapical pleural-parenchymal scarring. 3. Tracheobronchial secretions with bibasilar mucous plugging. 4. 7 mm irregular solid nodule of the subpleural left upper lobe is new from the prior study and favo rs scarring, however 6 month follow-up chest CT recommended. 5. No lymphadenopathy. Please refer to below summary of Fleischner criteria recommendations for follow-up of incidental CT n odules (Gail Dodge, Guidelines for management of small pulmonary nodules detected on CT scans: A sta tement from the Fleischner Society, Radiology 237: [phone].) SOLID NODULES Solitary nodule size: 6-8 mm * Low risk patients: follow-up at 6-12 months, then consider further follow-up at 18-24 months * high risk patients: initial follow-up CT at 6-12 months and then at 18-24 months if no change Note: newly detected indeterminate nodule in persons 35 years of age or older. * Low risk patients: minimal or absent history of smoking and/or other known risk factors * high risk patients: history of smoking or of other known risk factors (e.g. first degree relative with lung cancer, or exposure to asbestos, radon, uranium) * if a nodule up to 8 mm is partly solid or is ground glass further follow-up is required after 24 m onths to exclude possible slow growing adenocarcinoma (ADRIANA) ACT 112: Negative or not required by law. The above report was generated using voice recognition software. It may contain grammatical, syntax o r spelling errors. Electronically signed by: Perez Conway M.D. 09/14/2024 12:10 PM
--- NOTE | 2024-09-14 12:22 | History & Physical Report ---
Date of Service September 14, 2024 Assessment & Plan (1) RAYMOND (dyspnea on exertion): (2) Elevated troponin: (3) Bradycardia: (4) COPD (chronic obstructive pulmonary disease): (5) HLD (hyperlipidemia): Plan: Patient is 88-year-old male with PMH COPD, GI bleed, HLD, bladder CA s/p TURBT, bradycardia, junctional rhythm, anxiety, depression presented to ER with c/o ongoing exertional SOB. #Exertional SOB In ER afebrile, P: 41, R: 18, BP 134/81, 95% on room air No leukocytosis, Hgb: 13, troponin: 4961 Respiratory BioFire panel: Negative CXR: Emphysema without acute pneumonia. CTA chest: No pulmonary emboli. Severe emphysema with biapical pleural-parenchym al scarring. Tracheobronchial secretions with bibasilar mucous plugging. 7 mm irregular solid nodule of the subpleural left upper lobe is new from the prior study and favors scarring, however 6 month follow-up chest CT recommended. No lymphadenopathy. Etiology of exertional SOB and dizziness is not clear. Possible multifactorial. Initial thought was obstructive CAD however is s/p cardiac cath and stent to LAD yesterday, 09/13/24. ?arrhythmia. ?possible secondary to underlying COPD/mucous plugging Monitor on telemetry May need ambulatory pulse ox to see if Orthostatic vitals CBC, BMP, magnesium labs in am #Elevated Troponin #CAD #S/P Cardiac cath and stent to LAD on 09/13/24 Troponin: troponin: 4961 -->4287 Patient without CP Possible related to recent cardiac intervention yesterday Echo Trend troponin Continue aspirin, Plavix, atorvastatin EKG in am Cardiology consult #History bradycardia #History junctional rhythm on outpatient Zio monitor Monitor on telemetry #Mucous Plugging #COPD Finished course of Zithromax, Medrol dose elo in early July 2024 Does not appear to be acute COPD exacerbation at this time CTA Chest: Tracheobronchial secretions with bibasilar mucous plugging Incentive spirometry, flutter valve Mucomyst, formoterol, budesonide, hypertonic saline nebs If no improvement consider pulmonology consult Follows with [facility] pulmonology Patient not using home Advair as concerned with interactions with other medications #Abnormal CT Chest: CT Chest: 7 mm irregular solid nodule of the subpleural left upper lobe is new from the prior study and favors scarring Will need 6 month follow-up chest CT #Bladder CA #BPH S/P TURBT 04/06/24 Continue home finasteride Pt with chronic urinary frequency and urgency since prior procedure. Will try condom cath while hospitalized Urine culture pending Follows with urology, Dr Beltrán. #Depression/Anxiety Continue home sertraline DVT Prophylaxis SQ Heparin Admit PCU Full Code as per discussion with pt Follows with Dr Zayas for routine care Pt was seen and care coordinated with Dr Arizmendi. See addendum I spent a total of 65 minutes reviewing notes, outpatient records, labs, medication, coordinating, documenting and providing care for this patient excluding time spent in the performance of separately billed services and excluding time spent by another provider/QHP. History of Present Illness Chief Complaint: SOB Primary Care Provider: Ciro Zayas MD Patient is 88-year-old male with PMH COPD, GI bleed, HLD, bladder CA s/p TURBT, bradycardia, junctional rhythm, anxiety, depression presented to ER with c/o ongoing exertional SOB. 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 He feels increased SOB past 1.5 weeks and more frequent dizziness with feeling lightheaded with walking approximately 5 feet. Denies syncope. Patient reports sometimes while sitting will have episodes of left sided chest pain that he describes as sharp and lasts approximately 4 minutes and self resolves. He also reports will have episodes of feeling like "breath catches and can't take a deep breath." He is following with cardiology and EP. Per outpatient EP note he has history junctional rhythms and it was recommended patient have cardiac cath first to assess for obstructive CAD as cause of exertional SOB and holding on pacemaker as was not certain would alleviate patients symptoms. Yesterday he had cardiac cath and received SMITA to LAD and was started on aspirin and Plavix. He does not feel his symptoms are any worse today and reports feeling similar to how he felt prior to the cardiac cath. Follows with [facility], Dr Suárez. Reports cough for past 2 months sometimes productive clear phlegm. Was given Zithromax and medrol dose elo on 07/26/24. He states still has cough but doesn't feel is very productive now. Denies fever/chills. States has Advair but hasn't been using it as he reports read about interactions with other medicati ons. Since urinary procedure for bladder CA he has urinary frequency and urgency. Denies dysuria. Denies fever/chills, diaphoresis, N/V/D/C, BURGESS, syncope, LOC, vision changes, neck pain, orthopnea, palpitations, hemoptysis, sore throat, choking, otalgia, rhinorrhea, abdominal pain, paresthesias, extremity weakness, extremity edema, rashes, hematuria. Cardiac cath on 09/13/[address] Cross. Multivessel vessel coronary artery disease -50% proximal, 90% mid LAD 40-50% calcified distal left main 40% proximal high OM1. 50% small AV groove circumflex after OM1 50% proximal RCA 2. Normal intracardiac filling pressure 3. Successful PCI of proximal to mid LAD with single drug-eluting stent (2.75 x 26 mm Callahan; postdilated with 3.0 NC). 08/10/24 Zio patch: IMPRESSION: Patient had a min HR of 48 bpm, max HR of 188 bpm Sinus rhythm, average rate 72 beats per minute with frequent ventricular ectopy and couplets (20.6%). There were 14 episodes of complex ventricular ectopy of 4 to 5 beats in duration and 35 episodes of supraventricular tachycardia longest 9.4 seconds in duration 09/06/24 Echo: Borderline diffuse LV hypokinesis, EF: 50-54%, grade 1 diastolic dysfunction, mild aortic valve sclerosis, mild TR, mild pulmonary hypertension Allergies Allergy/AdvReac Type Severity Reaction Status Date / Time No Known Allergies Allergy Mild Unverified 09/13/24 11:14 Home Medications Medication Instructions Recorded Confirmed Type atorvastatin 40 mg tablet 40 mg PO HS 12/27/19 09/14/24 History cholecalciferol (vitamin D3) 25 25 mcg PO DAILY 12/27/19 09/14/24 History mcg (1,000 unit) tablet (Vitamin D3) fluoride (sodium) 1.1 % dental 1 applic PO DAILY 12/03/23 09/14/24 History paste (PreviDent 5000 Booster Plus) trazodone 50 mg tablet 50 mg PO HS Insomnia 12/03/23 09/14/24 History lorazepam 0.5 mg tablet (Ativan) 0.5 mg PO Q8H PRN anxiety #20 tabs 05/30/24 02/26/25 Rx pantoprazole 40 mg tablet,delayed 40 mg PO QAM 04/08/24 09/14/24 History release sertraline 100 mg tablet 50 mg PO QAM 04/08/24 09/14/24 History aspirin 81 mg tablet,delayed 81 mg PO DAILY #90 tabs 09/13/24 09/14/24 Rx release clopidogrel 75 mg tablet 75 mg PO DAILY #30 tabs 09/13/24 09/14/24 Rx famotidine 20 mg tablet 20 mg PO HS 09/13/24 09/14/24 History finasteride 5 mg tablet 5 mg PO DAILY 09/13/24 09/14/24 History fluticasone propionate 115 2 puff inhalation BID 09/13/24 09/14/24 History mcg-salmeterol 21 mcg/actuation HFA inhaler nitroglycerin 0.4 mg sublingual 0.4 mg sublingual DIRECTED PRN 09/13/24 09/14/24 History tablet Chest Pain albuterol sulfate 90 mcg/actuation 2 puff inhalation Q4H PRN 09/14/24 09/14/24 History aerosol inhaler Shortness Of Breath Or Wheezing psyllium 1 packet PO DAILY 09/14/24 09/14/24 History Past Med/Surg History Problem List (Updated 09/14/24 @ 14:34 by Connie Gunter PA-C) Ventricular ectopy CAD (coronary artery disease) Elevated troponin (Acute) Bradycardia (Acute) RAYMOND (dyspnea on exertion) (Acute) Upper GI bleed Acute blood loss anemia Melena (Acute) Anemia (Acute) HLD (hyperlipidemia) COPD (chronic obstructive pulmonary disease) Medical History Dizziness Surgical History Hx of cystoscopy History of cardiac catheterization 09/13/24. Dr Cross History of esophagogastroduodenoscopy (EGD) History of colonoscopy Family History Mother Lung cancer Father Coronary heart disease Social History Smoking Status: Former smoker Tobacco Type: Cigarettes Cigarettes Per Day: 20; Second Hand Exposure: Yes; Do You Dip or Chew Tobacco: No; Hx Alcohol Use: No Hx Substance Use: No Preferred Language: Wallisian Communication Ability: Effective Program Medical Director Required: No Beliefs That Will Affect Care: None marital status: Current Living Situation: Family Current Living Situation Comment: lives with brother Feels Safe at Home: Yes Assistive Devices: Denture - Upper, Glasses and Hearing Aid - Bilateral Review of Systems Review of Systems: All systems reviewed & are unremarkable except as noted in HPI & below Physical Exam Physical Exam: General: no distress, WDWN elderly male Head: normocephalic, atraumatic Eyes: conjunctiva non-injected, anicteric ENT: normal inspection external ears, nose, mucous membranes moist Neck: supple, trachea midline Lungs: diminished breath sounds, no respiratory distress, no wheezing/rhonchi/rales noted CV: bradycardia, rate 54, regular rhythm with ectopy, no pretibial edema Abd: normal BS, soft, non-tender Ext: no cyanosis, no calf tenderness Neuro: A&O x 3, no focal deficits noted, normal affect Skin: warm, dry Results & Data Results & Data Vital Signs (Past 12 Hours) Vital Signs Temp Pulse Pulse Resp BP BP Pulse Ox 09/14/24 10:20 56 L 09/14/24 10:14 60 22 95 09/14/24 10:14 60 22 143/47 H 95 09/14/24 09:29 09/14/24 09:29 36.6 C 41 L 18 134/81 95 O2 Del Method 09/14/24 10:20 09/14/24 10:14 Room Air 09/14/24 10:14 Room Air 09/14/24 09:29 Room Air 09/14/24 09:29 Laboratory Results Short CBC 09/14/24 Range/Units 10:11 WBC 9.31 (4.8-10.8) K/ul Hgb 13.2 L (14.0-18.0) g/dl Hct 39.1 L (42.0-52.0) % Plt Count 200 (130-400) K/uL BMP 09/14/24 10:11 Sodium 139 Potassium 4.5 Chloride 107 Carbon Dioxide 26 BUN 20 Creatinine 1.03 Glucose 92 Calcium 9.0 Liver Function 09/14/24 Range/Units 10:11 Total Bilirubin 0.7 (0.2-1.0) mg/dl AST 44 H (13-39) U/L ALT 18 (7-52) U/L Alkaline Phosphatase 67 (34-104) U/L Albumin 4.0 (3.4-5.0) gm/dl Urine 09/14/24 Range/Units 10:25 Urine Color Dark Yellow Urine Appearance Clear (Clear) Urine pH 5.0 (4.5-7.5) Ur Specific [place] 1.033 H (1.000-1.030) Urine Protein 2+ H (Negative) Urine Glucose (UA) Negative (Negative) Diagnostic Findings Chest X-Ray 09/14/24 09:51 XR chest 1V portable CLINICAL HISTORY: Dyspnea COMPARISON STUDY: 12/03/2023 FINDINGS: Heart size and pulmonary vasculature are normal. Stable findings of emphysema. Stable reticular nodular opacity in the lung apices and pleural thickening in the apices. No new consolidation or pleural effusion. No pneumothorax. IMPRESSION: Emphysema without acute pneumonia. ACT 112: Negative or not required by law. Electronically signed by: Jayce Le M.D. 09/14/2024 10:34 AM Chest CTA 09/14/24 11:08 CT angio chest PE protocol CT DOSE: 384.3 mGy.cm HISTORY: 88 years-old Male with PE, raymond. Acute shortness of breath TECHNIQUE: Multiple CTA images of the chest were obtained after the intravenous administration of 112 ml Optiray. Coronal and sagittal MIPS were obtained from the axial data set and were submitted for review. All measurements were obtained according to NASCET criteria. A dose lowering technique was utilized adhering to the principles of ALARA. COMPARISON: Chest radiograph of same day, CTA chest 07/13/2021 FINDINGS: CTA: Cardiomegaly without pericardial effusion. Extensive coronary artery calcifications. The left heart structures are not opacified and therefore difficult to evaluate. Ectasia of the ascending thoracic aorta, 3.9 cm with moderate atherosclerosis. No pulmonary emboli. CT CHEST: Heterogeneous thyroid. No pathologically enlarged lymph nodes. Trace pleural effusions. Respiratory motion artifact limits the study. Severe pulmonary emphysema with biapical pleural-parenchymal scarring. Tracheobronchial secretions with bronchial wall thickening suggestive of bronchitis. Mild dependent bibasilar atelectasis. Irregular somewhat spiculated 7 mm subpleural solid nodule in the anterior left upper lobe on image 179 is new from prior. 4 mm fissural nodule left midlung on image 168 suggestive of a benign lymph node is unchanged. Partial distention with wall thickening of the stomach. Unremarkable soft tissues. No acute fracture. IMPRESSION: 1. No pulmonary emboli. 2. Severe emphysema with biapical pleural-parenchymal scarring. 3. Tracheobronchial secretions with bibasilar mucous plugging. 4. 7 mm irregular solid nodule of the subpleural left upper lobe is new from the prior study and favors scarring, however 6 month follow-up chest CT recommended. 5. No lymphadenopathy. Please refer to below summary of Fleischner criteria recommendations for follow- up of incidental CT nodules (Gail Dodge, Guidelines for management of small pulmonary nodules detected on CT scans: A statement from the Fleischner Society, Radiology 237: [phone].) SOLID NODULES Solitary nodule size: 6-8 mm * Low risk patients: follow-up at 6-12 months, then consider further follow-up at 18-24 months * high risk patients: initial follow-up CT at 6-12 months and then at 18-24 months if no change Note: newly detected indeterminate nodule in persons 35 years of age or older. * Low risk patients: minimal or absent history of smoking and/or other known risk factors * high risk patients: history of smoking or of other known risk factors (e.g. first degree relative with lung cancer, or exposure to asbestos, radon, uranium) * if a nodule up to 8 mm is partly solid or is ground glass further follow-up is required after 24 months to exclude possible slow growing adenocarcinoma (ADRIANA) ACT 112: Negative or not required by law. The above report was generated using voice recognition software. It may contain grammatical, syntax or spelling errors. Electronically signed by: Perez Conway M.D. 09/14/2024 12:10 PM ECG Additional Comments: Sinus rhythm, rate 60, PVC's per my interpretation Supervising Physician Co-Signing Physician Notes 88-year-old male with PMH of COPD, GI bleed, HLD, bladder cancer status post TURBT, bradycardia, CAD presented to the ED with complaint of worsening shortness of breath with exertion and dizziness. Patient reports he has been having dizziness with activity and shortness of breath with activity since last few months, it has been more worsening in the last 1 and half weeks. Patient denies fever/sore throat. Patient reports cough at his baseline with clear mucus for several months now. Patient recently got stent placed yesterday will continue with DAPT in here. Avoid omeprazole. Patient denies pain or burning while passing urine/acute changes in bowel habits/nausea/vomiting. Patient appeared comfortable at bedside, on room air, went up to bathroom to pass urine and said he did not have dizziness this time. Patient reports he has stopped using Advair for several months now because of it being expensive through his insurance. Labs and imagings reviewed. CBC fairly WNL, renal function test fairly WNL, liver function with slight elevation of AST. Troponin elevated at 4961, downtrending to 4287. Patient with no chest pain. Urinalysis looks dirty, patient states he had recent intravesical BCG therapy last Thursday. CT chest negative for PE, severe emphysema with biapical pleural parenchymal scaring noted, tracheobronchial secretion with bibasilar mucous plugging noted. 7 mm irregular solid nodule noted left upper lobe. Shortness of breath with exertion/dizziness: Get orthostatic vitals, likely secondary to noncompliance with Advair and progression of his advanced COPD. Recently got stented/will consult cardiology. Troponin elevated in the setting of stent placement 09/13 which is expected, troponin is trending down and patient denied chest pain. Patient does have advanced COPD, does not appear to be in acute exacerbation. CTA chest as above, will continue with conservative mucociliary clearance therapy with hypertonic saline nebs, Mucomyst nebs, Perforomist nebs, budesonide nebs, chest percussive therapy, flutter valve. Pt will need repeat CT chest due to 7 mm JUDY nodule, in 6 months. Elevated troponin: In the setting of cardiac stent placement 09/13, downtrending, patient with no acute chest pain. Continue with telemetry monitoring. Cardiology consult. Echo. Abnormal urinalysis: Patient reports no pain or burning while passing urine, patient recently had intravesical BCG therapy per patient. Urine culture is pending. Given recent interval midcycle manipulation, will put him on antibiotic until urine culture results are out. On exam: GENERAL: Alert and oriented x3. NAD, on RA. HEENT: No pallor, no icterus. Pupils equal, round and reactive to light. Oral mucosa moist. NECK: No JVD, no neck masses. HEART: S1 and S2 heard. Regular rate and rhythm. No murmur, no gallop. RESPIRATORY SYSTEM: Normal AP diameter. No accessory muscle use. No wheezing, no crackles. b/l decreased breath sounds. ABDOMEN: Soft, bowel sounds present, nontender, no distention. CENTRAL NERVOUS SYSTEM: No facial droop. Speech is clear. Obeys simple commands. Moves extremities. EXTREMITIES: No edema, no erythema seen. I have seen and examined the patient and have discussed the case with the provider above. I agree with the assessment and plan as stated. Time spent separately: 35 min.
--- NOTE | 2024-09-14 13:56 | Cardiology Consultation ---
Date of Consultation September 14, 2024 Assessment & Plan (1) CASTILLO (dyspnea on exertion): (2) Elevated troponin: (3) CAD (coronary artery disease): (4) COPD (chronic obstructive pulmonary disease): (5) Ventricular ectopy: Plan Patient admitted for ongoing dyspnea and intermittent dizziness. Etiology of his SOB uncertain. He underwent cardiac cath yesterday due to his symptoms of exertional dyspnea and found to have multivessel disease and received SMITA to the prox/mid LAD. med management recommended for other moderate non obstructive disease. HS troponin elevated on admission today. He reports no chest pain. Likely indicative of coronary intervention yesterday. Discussed with interventional cardiology and in agreement that HS troponin likely due to intervention. Echo with low normal LVEF, no wall motion abnormalities. EKG without acute ischemic changes. Continue ASA, plavix, statin. He has known frequent ventricular ectopy and follows with EP. History of borderline bradycardia as well with junctional rhythm on outpatient ZIO. Add magnesium oxide 400 mg daily Consider low dose beta mallika overnight and monitor on telemetry. Chest CTA on admission today demonstrates probable severe emphysema. He is hypoxic in ER at rest and with ambulation. Supplement O2 to keep O2 Sats > 90%. May need 2 step Consider treatment for COPD exacerbation. Further recommendations pending evaluation and discussion with Dr. Mcarthur. Supervising Physician Co-Signing Physician Notes Patient seen and examined personally. Care and management as outlined above. Discussed and personally endorsed 88-year-old male status post coronary intervention drug-eluting stent to the proximal mid left anterior sending yesterday. Underlying significant emphysematous lung disease Fiona presented due to symptoms of persistent dyspnea especially with exertion. Echocardiogram without new findings. EKG with chronic ventricular ectopy, bigeminy Current exam consistent with hypoxia with efforts of breathing suspect underlying pulmonary disease contributing substantially. Chronic ventricular ectopy longstanding. No sign of hemodynamic instability Will continue to follow History of Present Illness Reason for Consultation: SOB; Elevated troponin s/p cardiac cath Requesting Physician: Josiah ortega Attending Physician: Dr. Mcarthur History of Present Illness Patient is a 88 year old male who presented to [facility] earlier today with complaints of worsening SOB and dizziness. This has been an ongoing complaint for patient for the last several months. Recently been evaluated by EP, Dr. Rodriguez for dyspnea, dizziness associated with frequent PVC's and intermittent junctional rhythm along with non sustained VT. Echo as an outpatient in Aug 2024 revealed borderline diffuse LV hypokinesis with LVEF 50-54%. LA is mildly enlarged. Mild aortic sclerosis without stenosis, mild pulm hypertension with estimated PASP 38 mmHg He reported worsening SOB at this visit and was sent for repeat diagnostic cardiac cath, performed yesterday 09/13/[address] Cross. Cath revealed multivessel coronary artery disease and he received 1 SMITA to the prox/mid LAD. He was discharged post procedure with ASA and plavix along with statin. Cath report: 1. Multivessel vessel coronary artery disease -50% proximal, 90% mid LAD 40-50% calcified distal left main 40% proximal high OM1. 50% small AV groove circumflex after OM1 50% proximal RCA 2. Normal intracardiac filling pressure 3. Successful PCI of proximal to mid LAD with single drug-eluting stent (2.75 x 26 mm Mcdonald; postdilated with 3.0 NC). Last night and earlier this morning, patient reported ongoing/worsening SOB with exertional activities. He feels this is similar to symptoms over the last 1-2 months. He saw pulchata in July who treated him with antibiotics and steroids for possible "infection" and COPD exacerbation. he reports this aided his symptoms for a few weeks, but then returned. At time of evaluation, patient resting comfortably in bed, watching tennis on his IPAD. He reports no SOB at rest. No cough, orthopnea, PND or edema. No fever or chills. SOB only occurs with minmal exertion. Pulse ox is reading low in the 80's. Hands are cold. nurses trying to obtain more accurate readings. He denies chest pain. He denies current dizziness. Does not notice the palpitations/ectopy. Admits to intermittent dizziness at home but no syncope or near syncope. Overall, he just "doesn't feel right". He was hoping he would feel remarkably improved after cath/stent placement yesterday but this did not happen. Allergies Allergy/AdvReac Type Severity Reaction Status Date / Time No Known Allergies Allergy Mild Unverified 09/13/24 11:14 Home Medications Medication Instructions Recorded Confirmed Type atorvastatin 40 mg tablet 40 mg PO HS 12/27/19 09/14/24 History cholecalciferol (vitamin D3) 25 25 mcg PO DAILY 12/27/19 09/14/24 History mcg (1,000 unit) tablet (Vitamin D3) fluoride (sodium) 1.1 % dental 1 applic PO DAILY 12/03/23 09/14/24 History paste (PreviDent 5000 Booster Plus) trazodone 50 mg tablet 50 mg PO HS Insomnia 12/03/23 09/14/24 History lorazepam 0.5 mg tablet (Ativan) 0.5 mg PO Q8H PRN anxiety #20 tabs 12/17/23 09/14/24 Rx pantoprazole 40 mg tablet,delayed 40 mg PO QAM 04/08/24 09/14/24 History release sertraline 100 mg tablet 50 mg PO QAM 04/08/24 09/14/24 History aspirin 81 mg tablet,delayed 81 mg PO DAILY #90 tabs 09/13/24 09/14/24 Rx release clopidogrel 75 mg tablet 75 mg PO DAILY #30 tabs 09/13/24 09/14/24 Rx famotidine 20 mg tablet 20 mg PO HS 09/13/24 09/14/24 History finasteride 5 mg tablet 5 mg PO DAILY 09/13/24 09/14/24 History fluticasone propionate 115 2 puff inhalation BID 09/13/24 09/14/24 History mcg-salmeterol 21 mcg/actuation HFA inhaler nitroglycerin 0.4 mg sublingual 0.4 mg sublingual DIRECTED PRN 09/13/24 09/14/24 History tablet Chest Pain albuterol sulfate 90 mcg/actuation 2 puff inhalation Q4H PRN 09/14/24 09/14/24 History aerosol inhaler Shortness Of Breath Or Wheezing psyllium 1 packet PO DAILY 09/14/24 09/14/24 History Patient History Medical History Dizziness Surgical History Hx of cystoscopy History of cardiac catheterization 09/13/24. Dr Cross History of esophagogastroduodenoscopy (EGD) History of colonoscopy Family History Mother Lung cancer Father Coronary heart disease Social History Smoking Status: Former smoker Tobacco Type: Cigarettes Cigarettes Per Day: 20; Second Hand Exposure: Yes; Do You Dip or Chew Tobacco: No; Hx Alcohol Use: No Hx Substance Use: No Preferred Language: Luxembourgish Communication Ability: Effective Regulation Supervisor Required: No Beliefs That Will Affect Care: None marital status: Current Living Situation: Family Current Living Situation Comment: lives with brother Feels Safe at Home: Yes Assistive Devices: Denture - Upper, Glasses and Hearing Aid - Bilateral Review of Systems Review of Systems: All systems reviewed & are unremarkable except as noted in HPI & below Physical Exam Constitutional: WD/WN, vitals as above + thin; no acute distress Neck: trachea midline, no thyromegaly Respiratory: able to speak in complete sentences (Mild conversational dyspnea); no respiratory distress Auscultation: + diminished lung sounds; no crackles, no rales and no rhonchi Cardiovascular: Rate/Rhythm: regular rate and regular rhythm Heart Sounds: normal S1 and normal S2; no murmur Vessels: no JVD Extremities: no edema Cath site - right wrist with mild ecchymosis. normal pulse Gastrointestinal (Abdomen): normal bowel sounds, soft, nontender, no hepatosplenomegaly Neurologic: PERRL, EOMI, accommodation nl, no face palsy, no dysarthria Results & Data Vital Signs (Past 12 Hours) Vital Signs Temp Pulse Pulse Resp BP BP Pulse Ox 09/14/24 10:20 56 L 09/14/24 10:14 60 22 95 09/14/24 10:14 60 22 143/47 H 95 09/14/24 09:29 09/14/24 09:29 36.6 C 41 L 18 134/81 95 O2 Del Method 09/14/24 10:20 09/14/24 10:14 Room Air 09/14/24 10:14 Room Air 09/14/24 09:29 Room Air 09/14/24 09:29 Laboratory Results Cardiac Enzymes 09/14/24 09/14/24 Range/Units 10:11 12:33 AST 44 H (13-39) U/L Troponin I High Sens 4961.1 H* 4287.8 H* (0-20) pg/ml Coagulation 09/14/24 Range/Units 10:11 PT 11.4 (9.0-12.0) Seconds APTT 27 (21-31) Seconds CBC 09/14/24 Range/Units 10:11 WBC 9.31 (4.8-10.8) K/ul RBC 4.43 L (4.70-6.10) M/uL Hgb 13.2 L (14.0-18.0) g/dl Hct 39.1 L (42.0-52.0) % Plt Count 200 (130-400) K/uL Neut # (Auto) 6.57 H (1.40-6.50) K/uL Lymph # (Auto) 1.32 (1.20-3.40) K/uL [place] # (Auto) 0.92 H (0.11-0.59) K/uL Eos # (Auto) 0.40 (0.00-0.50) K/uL Baso # (Auto) 0.08 (0.00-0.20) K/uL Comprehensive Metabolic Panel 09/14/24 Range/Units 10:11 Sodium 139 (136-145) mmol/L Potassium 4.5 (3.5-5.1) mmol/L Chloride 107 (98-107) mmol/L Carbon Dioxide 26 (21-32) mmol/L BUN 20 (6-23) mg/dl Creatinine 1.03 (0.6-1.4) mg/dl Glucose 92 (70-99(Fasting)) mg/dl Calcium 9.0 (8.6-10.3) mg/dl AST 44 H (13-39) U/L ALT 18 (7-52) U/L Alkaline Phosphatase 67 (34-104) U/L Total Protein 6.6 (6.0-8.3) gm/dl Albumin 4.0 (3.4-5.0) gm/dl Intake and Output 09/13/24 09/14/24 09/14/24 22:59 06:59 14:59 Other: Weight 54.3 kg Weight Measurement Method Built in [facility] Patient Weight 09/15/24 06:59 Weight 54.3 kg Diagnostic Findings Telemetry reviewed: NSR with ventricular bigeminy and short runs of complex ventricular ectopy with couplets and triplets EKG reviewed on arrival 09/14/24: NSR with frequent PVC's in runs of bigeminy non specific ST/T wave abnormality Chest X-Ray 09/14/24 09:51 FINDINGS: Heart size and pulmonary vasculature are normal. Stable findings of emphysema. Stable reticular nodular opacity in the lung apices and pleural thickening in the apices. No new consolidation or pleural effusion. No pneumothorax. IMPRESSION: Emphysema without acute pneumonia. Chest CTA 09/14/24 11:08 CTA: Cardiomegaly without pericardial effusion. Extensive coronary artery calcifications. The left heart structures are not opacified and therefore difficult to evaluate. Ectasia of the ascending thoracic aorta, 3.9 cm with moderate atherosclerosis. No pulmonary emboli. CT CHEST: Heterogeneous thyroid. No pathologically enlarged lymph nodes. Trace pleural effusions. Respiratory motion artifact limits the study. Severe pulmonary emphysema with biapical pleural-parenchymal scarring. Tracheobronchial secretions with bronchial wall thickening suggestive of bronchitis. Mild dependent bibasilar atelectasis. Irregular somewhat spiculated 7 mm subpleural solid nodule in the anterior left upper lobe on image 179 is new from prior. 4 mm fissural nodule left midlung on image 168 suggestive of a benign lymph node is unchanged. Partial distention with wall thickening of the stomach. Unremarkable soft tissues. No acute fracture. IMPRESSION: 1. No pulmonary emboli. 2. Severe emphysema with biapical pleural-parenchymal scarring. 3. Tracheobronchial secretions with bibasilar mucous plugging. 4. 7 mm irregular solid nodule of the subpleural left upper lobe is new from the prior study and favors scarring, however 6 month follow-up chest CT recommended. 5. No lymphadenopathy. Cardiac cath report reviewed from 09/13/24: Summary: 1. Multivessel vessel coronary artery disease -50% proximal, 90% mid LAD 40-50% calcified distal left main 40% proximal high OM1. 50% small AV groove circumflex after OM1 50% proximal RCA 2. Normal intracardiac filling pressure 3. Successful PCI of proximal to mid LAD with single drug-eluting stent (2.75 x 26 mm Mcdonald; postdilated with 3.0 NC). Echo report reviewed from Sep 06, 2024: Interpretation Summary The examination is adequate to evaluate the referral indication. Sinus rhythm with frequent premature ventricular contractions in a pattern of ventricular bigeminy present during the echocardiogram study. The LV wall thickness is normal. There is borderline diffuse left ventricular hypokinesis. The qualitative LV ejection fraction is 50-54% (normal). The left atrium is mildly enlarged (35-41 ml/m^2). The left ventricular diastolic function is mildly abnormal (grade I). Mild aortic valve sclerosis is present. Mild tricuspid regurgitation is present. Mild pulmonary hypertension is present. The estimated pulmonary artery systolic pressure is 38mm Hg. Compared to the previous study dated 01/30/2023, frequent PVCs also observed at that time with low-normal LV systolic function. Mild elevated pulmonary arterial pressure now noted. Outpatient ZIO monitor report reviewed dated Jul 2024: RESULTS: Preliminary Findings Prepared by Ruby Romero, CCT 08/30/24 Patient had a min HR of 48 bpm, max HR of 188 bpm, and avg HR of 69 bpm. Predominant underlying rhythm was Sinus Rhythm. Slight P wave morphology changes were noted. 14 Ventricular Tachycardia runs occurred, the run with the fastest interval lasting 4 beats with a max rate of 167 bpm, the longest lasting 5 beats with an avg rate of 112 bpm. 35 Supraventricular Tachycardia runs occurred, the run with the fastest interval lasting 9 beats with a max rate of 188 bpm, the longest lasting 9.4 secs with an avg rate of 140 bpm. Ectopic Atrial Rhythm was present. Ventricular Tachycardia and Ectopic Atrial Rhythm were detected within +/- 45 seconds of symptomatic patient event(s). Isolated SVEs were rare (<1.0%), SVE Couplets were rare (<1.0%), and SVE Triplets were rare (<1.0%). Isolated VEs were frequent (20.6%, [id number]), VE Couplets were occasional (1.1%, 7031), and VE Triplets were rare (<1.0%, 509). Ventricular Bigeminy and Trigeminy were present. Patient recorded 19 event markers and 17 diary entries with ventricular ectopy bigeminy or complex ventricular runs present on all markers IMPRESSION: Sinus rhythm, average rate 72 beats per minute with frequent ventricular ectopy and couplets (20.6%). There were 14 episodes of complex ventricular ectopy of 4 to 5 beats in duration and 35 episodes of supraventricular tachycardia longest 9.4 seconds in duration Medications Administered Medications atorvastatin 40 mg tablet 40 mg PO HS 12/27/19 [History Confirmed 09/14/24] cholecalciferol (vitamin D3) 25 mcg (1,000 unit) tablet (Vitamin D3) 25 mcg PO DAILY 12/27/19 [History Confirmed 09/14/24] fluoride (sodium) 1.1 % dental paste (PreviDent 5000 Booster Plus) 1 applic PO DAILY 12/03/23 [History Confirmed 09/14/24] trazodone 50 mg tablet 50 mg PO HS Insomnia 12/03/23 [History Confirmed 09/14/24] lorazepam 0.5 mg tablet (Ativan) 0.5 mg PO Q8H PRN anxiety #20 tabs 12/17/23 [Rx Confirmed 09/14/24] pantoprazole 40 mg tablet,delayed release 40 mg PO QAM 04/08/24 [History Confirmed 09/14/24] sertraline 100 mg tablet 50 mg PO QAM 04/08/24 [History Confirmed 09/14/24] aspirin 81 mg tablet,delayed release 81 mg PO DAILY #90 tabs 09/13/24 [Rx Confirmed 09/14/24] clopidogrel 75 mg tablet 75 mg PO DAILY #30 tabs 09/13/24 [Rx Confirmed ] famotidine 20 mg tablet 20 mg PO HS 09/13/24 [History Confirmed 09/14/24] finasteride 5 mg tablet 5 mg PO DAILY 09/13/24 [History Confirmed 09/14/24] fluticasone propionate 115 mcg-salmeterol 21 mcg/actuation HFA inhaler 2 puff inhalation BID 09/13/24 [History Confirmed 09/14/24] nitroglycerin 0.4 mg sublingual tablet 0.4 mg sublingual DIRECTED PRN Chest Pain 09/13/24 [History Confirmed 09/14/24] albuterol sulfate 90 mcg/actuation aerosol inhaler 2 puff inhalation Q4H PRN Shortness Of Breath Or Wheezing 09/14/24 [History Confirmed 09/14/24] psyllium 1 packet PO DAILY 09/14/24 [History Confirmed 09/14/24] (4) COPD (chronic obstructive pulmonary disease) COPD type: emphysema Emphysema type: unspecified Qualified Code(s): J43.9 - Emphysema, unspecified
[2024-09-14] MEDS: MAGNESIUM OXIDE 400 MG TAB PO ONE (15:41)
[2024-09-14] MEDS ORDERED: ALBUTEROL 0.083% NEBU SOLN 3 ML VIAL NEB PRN (19:39)
[2024-09-14] MEDS ORDERED: ONDANSETRON INJ 2 MG/ML 2 ML VIAL IV PRN (19:39)
[2024-09-14] MEDS ORDERED: POLYETHYLENE (MIRALAX) 17 GM PACK PO PRN (19:39)
[2024-09-14] MEDS ORDERED: ACETAMINOPHEN 325 MG TAB PO PRN (19:39)
[2024-09-14] MEDS ORDERED: LORazepam 0.5 MG TAB PO PRN (19:39)
[2024-09-14] MEDS: ACETYLCYSTEINE 20% INHAL SOLN 4ML ***DISPENSED BY RESP. INH SCH (20:12)
[2024-09-14] MEDS: FORMOTEROL 20 MCG/2 ML VIAL NEB SCH (20:12)
[2024-09-14] MEDS: BUDESONIDE 0.5 MG/2 ML VIAL (PULMICORT) NEB SCH (20:12)
[2024-09-14] MEDS: SODIUM CHLOR 7% 4 ML NEB NEB SCH (20:13)
[2024-09-14] MEDS: traZODone HCL 50 MG TAB PO SCH (21:48)
[2024-09-14] MEDS: FAMOTIDINE 20 MG TAB PO SCH (21:48)
[2024-09-14] MEDS: HEPARIN SOD 5,000 UNIT/0.5 ML VIAL SQ SCH (21:48)
[2024-09-14] MEDS: ATORVASTATIN 40 MG TAB PO SCH (21:48)
--- OUTSIDE RECORDS SUMMARY | 2024-09-15 05:58 | External Medical Summary | Summary of Care ---
Author Name Unknown Organization [facility] Address [address] [place] [place] [address] Phone [phone] Care Team Providers Care Assistant Offset Press Operator Name Role Phone Ciro Zayas MD Primary Care Provider + Encounter Details Date Type Department Care Team (Late st Contact Info) Description 09/13/2024 Result Scan Unspecified Department <No scans attached> Allergies No known active allergiesdocumented as of this encounter (statuses as of 09/14/2024) Medications Cholecalciferol (VITAMIN D) 1000 UNIT Capsule 1 cap daily Activ e Atorvastatin Calcium 40 MG Oral Tablet (Lipitor)Indication s:Coronary atherosclerosis due to lipid rich plaque TAKE 1 TABLET BY MOUTH EVERY DAY 90 Tablet 3 10/23/19 24 Active Additional Information Patient taking differently: QHS, Reported on 09/06/2024 LORazepam 0.5 MG Oral Tablet (Ativan)Indications :JAN (generalized anxiety disorder) Take 1 Tablet by mouth every 8 hours as needed for Anxiety. 21 Tablet 01/14/20 24 Active Sertraline HCl 100 MG Oral Tablet (Zoloft) Take 0.5 Tablets by mouth in the morning. 03/10/20 24 Active Vitamin K 100 MCG Oral Tablet Take by mouth every morning. Active traZODone HCl 50 MG Oral Tablet (Desyrel) Take 1 Tablet by mouth at bedtime. Active Psyllium 58.6 % Oral Packet (Metamucil) Take 1 Packet by mouth in the morning. 04/26/20 24 Active Pantoprazole Sodium 40 MG Oral Tablet Delayed Release (Protonix) Take 1 Tablet by mouth in the morning. 90 Tablet 1 06/20/20 24 Active Fluticasone-Sal[place] rol 115-21 MCG/ACT Inhalation Aerosol (Advair Hfa) Inhale 2 Puffs by mouth in the morning and 2 Puffs before bedtime. 12 g 12 07/26/19 25 Active Additional Information Patient not taking.Reported on 08/10/2024 Ventolin HFA 108 (90 Base) MCG/ACT Inhalation Aerosol Solution Inhale 2 Puffs by mouth every 4 hours as needed for Dyspnea or Wheezing. 18 g 3 07/26/19 25 025 Active Finasteride 5 MG Oral Tablet (Proscar) Take 1 Tablet by mouth in the morning. 90 Tablet 3 08/01/19 25 Active Famotidine 20 MG Oral Tablet (Pepcid)Indications :LUQ abdominal pain Take 1 Tablet by mouth at bedtime. 30 Tablet 3 08/25/19 25 Active Nitroglycerin 0.4 MG Sublingual Tablet Sublingual (Nitrostat) Place 1 Tablet under the tongue every 5 minutes as needed for Pain, Chest. 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 04/26/2024 Encounter for antineoplastic chemotherapy 2023 Malignant neoplasm of overlapping sites of bladd er 04/16/2024 JAN (generalized anxiety disorder) 04/16/2024 Aortic ectasia, abdominal 10/21/2023 Frequent PVCs 06/23/2023 NSVT (nonsustained ventricular tachycardia) 11/2022 COPD, group D, by GOLD 2017 classification 11/24 Overview: Per COPD GOLD Classification AAA (abdominal aortic aneurysm) 09/24/2022 PVD (peripheral vascular disease) 09/23/2022 History of pulmonary embolism 02/26/2022 History of cigarette smoking 02/26/2022 Senile osteoporosis 12/24/2018 Atherosclerosis of [place] co ronary artery of [place] heart without angina pectoris 05/19/2018 History of gout 03/10/2018 Varicose vein of leg 09/08/2017 History of nonmelanoma skin cancer 06/02/2017 Overview (04/23/2022): BCC L midback 03/10 BCC right post-auricular scalp 06/06 BCC right pre-auricular ear 08/29 BCC right chest 08/29 BCC under the right ala 02/26 History of alcohol dependence 03/05/2017 Dyslipidemia, goal LDL below 70 10/02/2011 Restless leg syndrome 09/24/2010 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 Bradycardia 12/01/2008 Beta-blockers contraindicated YURY inhibitor intolerance Overview (12/25/2010): low blood pressure documented as of this encounter (statuses as of 09/14/2024) Resolved Problems Problem Noted Date Diagnosed Date Resolved Date Mass of bladder 03/03/2024 05/27/[address] scan, bladder 01/11/2024 Bladder mass 01/11/2024 04/16/2024 History of 2019 novel [place] virus disease (COVID-19) 02/26/2022 04/16/2024 COPD, group C, by GOLD 2017 classification 01/27/2022 11/26/2022 Overview: Per COPD GOLD Classification Pulmonary embolus 07/26/2021 02/26/2022 Moderate protein-calorie malnutrition 07/26/2021 10/15/2023 COPD, group A, by GOLD 2017 classification 02/27/2020 01/30/2022 Overview: Per COPD GOLD Classification Senile osteoporosis 12/31/2016 08/11/19 20 History of basal cell carcinoma 03/23/2015 06/02/2017 Overview (03/23/2015): right pre-auricular ear 5/10 Gout 05/31/2013 03/10/2018 Alcoholism in remission 11/08/201202/17 COPD, mild 04/05/2012 03/01/2020 Overview: Per COPD GOLD Classification Dyslipidemia, goal LDL below 100 05/27/2011 10/02/2011 Tobacco use disorder 09/24/2010 022 ADVANCE DIRECTIVE INFORMATION 05/20/2010 03/10/2018 Overview (05/20/2010): No, Advance Directive brochure offered , patient declined. Diverticulitis of colon 07/10/2009 03/02/2011 Overview (09/24/2010): Have diverticular bleed in 2008 Dyslipidemia, goal LDL below 70 07/03/2009 05/27/2011 Overview (07/03/2009): Per Lipid Taxonomy. COPD, severity to be determined 01/10/2009 04/05/2012 Skin sensation disturbance 12/01/2008 0 03/05/2017 Mixed dyslipidemia 10/06/2008 9 Overview (07/03/2009): Per Lipid Taxonomy. Coronary atherosclerosis 10/06/2008 Overview (09/24/2010): No obstructive lesions in 2008 - had coronary cath documented as of this encounter (statuses as of 09/14/2024) Immunizations Name Administration Dates Next Due COVID-19 [...] Answer Date Recorded PHQ Adult Total Score 1 07/11/2024 Hunger Vital Sign Answer Date Recorded Within [...] No 12/17/2023 Does the household have a [facility] source of income? (Household - for ages [...] ages 0-17 years) Not on file 12/17/2023 Food Insecurity Answer Date Recorded Within the past 12 months, y ou worried that your food would run out before you got the money to buy more. Never true 12/17/19 24 Within the past 12 months, t he food you bought just didn't last and you didn't have money to get more. Never true 12/17/2023 Do you need food for this week? 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 Not on file Not on [employer] Not on file Not on file Not on file [employer] Not on file Not on file Not on file documented as of this encounter Plan of Treatment Upcoming Encounters Date Type Department Care Team (Late st Contact Info) Description 10/05/2024 10:00 AM EDT Nutrition Services Nutrition, [facility] [address] [facility] [place] [address] Melia Corona, BARBER [address] [facility] [place] [address] 10/21/2024 9:30 AM EDT Imaging Vascular Lab, [facility] 2nd [facility] [address] [facility] [place] [address] 10/24/2024 9:00 AM EDT Office Visit Gastroenterology, [facility] [address] [facility] [place] [address] Divya Maciel CRNP [address] [facility] [place] [address] 11/01/2024 10:00 AM EDT Imaging Radiology [facility] 1st [facility] [place] [address] [facility] [place] [phone] Prep, Svct [address] [place] [address] 11/02/2024 10:10 AM EDT Office Visit Vascular Surgery, [facility] [address] [facility] [place] [address] Francisco Jackson MD [address] [facility] [place] [address] 11/19/2024 9:00 AM EDT Office Visit Family Practice [facility] [address] [facility] [place] [address] Ciro Zayas MD [address] [place] [address] [place] [address] 12/05/2024 11:00 AM EDT Office Visit Dermatology [facility] [address] [facility] [place] [address] Ciro Jesus MD [address] [facility] [place] [address] 12/07/2024 2:45 PM EDT Procedure Only Urology, [facility] [address] [facility] [place] [address] Francisco Beltrán MD [address] [place] [address] 01/13/2025 9:30 AM EDT Office Visit Cardiology, [facility] [address] [facility] [place] [address] Divya Haskins CRNP [address] [facility] [place] [address] 01/23/2025 10:00 AM EDT Office Visit Pulmonary Medicine, [facility] [address] [facility] [place] [address] Herbert Suárez MD [address] [facility] [place] [address] 08/10/2025 10:00 AM EST Office Visit [facility]umatology [facility] [place] [phone] Jerad Connelly CRNP [address] [facility] [place], [place] [address] Health Maintenance Due Date Last Done Comments Zoster Vaccines (1 of 2) 12/22/1987 DTap/Tdap Vaccines (1 - Tdap) 12/27/2009 12/26/2009, 12/26/2009 *ADVANCE DIRECTIVE NOT ON FILE 02/02/2022 Adult Wellness Visit 07/03/2022 07/03/2021 COVID-19 Vaccine ( season) 2024 10/23/2020, 10/02/2020 Influenza Vaccine (FLU shot) (#1) 2024 *BISPHONATE OR OTHER ACCEPTABLE MEDICATION NEEDED FOR OSTEOPOROSIS (REFER TO SMARTSET #1146) 08/12/2024 O2 ASSESSMENT COMPLETED IN PAST YEAR FOR COPD 04/06/2025 04/06/2024 Depression Screening 07/11/2025 07/11/2024 DXA Scan 06/13/2026 06/13/2024, 05/21, 02/20/2020, Additional history exists Pneumococcal Vaccine: 50+ Years Completed 08/30/2014, 12/26/2009 Alpha-1 Antitrypsin Completed 08/20/2021 VITAMIN D LEVEL ONCE IN A LIFETIME-USE SMARTSET# 76360 Completed 04/13/2024, 07/16/2023, 05/27/2021, Additional history exists HPV (Gardasil) Vaccine Aged Out No lo nger eligible based on patient's age to complete this topic Hepatitis B Vaccine Aged Out No longe r eligible based on patient's age to complete this topic MENINGOCOCCAL (MENACTRA/MENVEO) Aged Out No longer eligible based on patient's age to complete this topic Meningitis B Vaccine (Bexsero/Trumemba) Aged Out No longer eligible based on patient's age to complete this topic documented as of this encounter Medical Devices Not on filedocumented as of this encounter Procedures Procedure Name Priority Date/Time Associated Diagnosis Comments CARDIAC CATH SCANNED RESULT 09/13/2024 documented in this encounter Results * CARDIAC CATH SCANNED RESULT (09/13/2024) 09/13/2024 us No Physician Data Unknown CARD CATH Final Result documented in this encounter Advance Directives * [...] Discussed due to patient's condition Care Teams Assistant Offset Press Operator Relationship Specialty Start Date End Date Ciro Zayas MD [address] [place] [id number] PCP - General Internal Medicine 09/20/10 documented as of this encounter
[2024-09-15 06:25] LABS: Hemoglobin 13.1 g/dl (14.0-18.0); Mean Corpuscular Hemoglobin 29.4 pg (25.0-34.0); Mean Corpuscular Hgb Conc 34.5 g/dL (32.0-36.0); Mean Corpuscular Volume 85.4 fL (80.0-100.0); Mean Platelet Volume 9.8 fL (9.4-12.4); Platelet Count 198 K/uL (130-400); RDW Coefficient of Variation 13.7 % (11.5-14.5); RDW Standard Deviation 42.7 fL (36.4-46.3); Red Blood Count 4.45 M/uL (4.70-6.10); White Blood Count 7.52 K/ul (4.8-10.8)
[2024-09-15 06:49] LABS: Albumin Globulin Ratio 1.2 (0.9-2); Albumin Level 3.5 gm/dl (3.4-5.0); BUN Creatinine Ratio 19.1 (10-20); Bilirubin,Total 0.6 mg/dl (0.2-1.0); Calcium 8.3 mg/dl (8.6-10.3); Creatinine Clr Calc Pharmacy 45.8 ml/min; Globulin 2.9 gm/dl (2.5-4.0); Total Protein 6.4 gm/dl (6.0-8.3)
--- NOTE | 2024-09-15 08:34 | Hospitalist Progress Note ---
Date of Service September 15, 2024 Assessment & Plan (1) CASTILLO (dyspnea on exertion): (2) Elevated troponin: (3) Bradycardia: (4) COPD (chronic obstructive pulmonary disease): (5) HLD (hyperlipidemia): Plan: 88-year-old male with PMH COPD, GI bleed, HLD, bladder CA s/p TURBT, bradycardia, junctional rhythm, anxiety, depression presented to ER with c/o ongoing exertional SOB. #Exertional SOB In ER afebrile, P: 41, R: 18, BP 134/81, 95% on room air No leukocytosis, Hgb: 13, troponin: 4961 Respiratory BioFire panel: Negative CXR: Emphysema without acute pneumonia. CTA chest: No pulmonary emboli. Severe emphysema with biapical pleural- parenchymal scarring. Tracheobronchial secretions with bibasilar mucous plugging. 7 mm irregular solid nodule of the subpleural left upper lobe is new from the prior study and favors scarring, however 6 month follow-up chest CT recommended. No lymphadenopathy. Etiology of exertional SOB and dizziness is not clear. Possible multifactorial. Initial thought was obstructive CAD however is s/p cardiac cath and stent to LAD yesterday, 09/13/24. ?arrhythmia. ?possible secondary to underlying COPD/mucous plugging Monitor on telemetry May need ambulatory pulse ox to see if Orthostatic vitals CBC, BMP, magnesium labs in am Cardiology, pulmonary med. consulted #Elevated Troponin #CAD #S/P Cardiac cath and stent to LAD on 09/13/24 Troponin: troponin: 4961 -->4287 Patient without CP Possible related to recent cardiac intervention yesterday Echo obtained Trend troponin Continue aspirin, Plavix, atorvastatin EKG in am Cardiology consulted 88 yo M s/p coronary intervention drug-eluting stent to the proximal mid left anterior Descending Echocardiogram without new findings. EKG with chronic ventricular ectopy, bigeminy mild breathlessness But no hypoxia at rest. Telemetry continues to demonstrate frequent ventricular ectopy and bigeminy but no profound bradycardia. Currently no indication for pacemaker EKG with ectopic atrial rhythm but no bradycardia arrhythmias. Cont. to monitor on tele. NPO after MN. Discussing w/ EP. #History bradycardia #History junctional rhythm on outpatient Zio monitor Monitor on telemetry cardiology involved, As above #Mucous Plugging #COPD Finished course of Zithromax, Medrol dose eol in early July 2024 Does not appear to be acute COPD exacerbation at this time CTA Chest: Tracheobronchial secretions with bibasilar mucous plugging Incentive spirometry, flutter valve Mucomyst, formoterol, budesonide, hypertonic saline nebs Pulmonology consulted (pt Follows with [facility] pulmonology as outpt) Patient not using home Advair #Abnormal CT Chest: CT Chest: 7 mm irregular solid nodule of the subpleural left upper lobe is new from the prior study and favors scarring Will need 6 month follow-up chest CT #Bladder CA #BPH S/P TURBT 04/06/24 Continue home finasteride Pt with chronic urinary frequency and urgency since prior procedure. Will try condom cath while hospitalized recently had intravesical BCG therapy per patient, Follows with urology, Dr Beltrán. Urine culture pending empiric abx #Depression/Anxiety Continue home sertraline DVT Prophylaxis SQ Heparin Admitted to PCU Full Code as per discussion with pt Follows with Dr Zayas for routine care Admission and Anticipated Discharge Date Admission Date: September 14, 2024 Subjective Pt seen in follow up shortness of breath Had stent placed by interventional cardiology Hx of COPD, Emphysema, some mucous plugging on imaging Ucultx pending, seen by urology recently Currently in NAD, speaking w/o difficulty initially however after a while feels short of breath Reports he was seen by his gas scrubber operator in outpt - now would likemto discuss w/ pulm while hospitalized No fever, chills, chest pain at this time. No abd. pain, n/v Discussed w/ cardiology - Dr. Mcarthur - for now npo after MN, eval by EP Review of Systems Review of Systems: All systems reviewed & are unremarkable except as noted in Subjective Physical Exam Physical Exam: General: no distress, WDWN elderly male Head: normocephalic, atraumatic Eyes: conjunctiva non-injected, anicteric ENT: normal inspection external ears, nose, mucous membranes moist Neck: supple Lungs: no respiratory distress, CTAB, no wheezing or rhonchi CV: regular Abd: normal BS, soft, non-tender Ext: no LE edema, moves extremities Neuro: A&O x 3, no focal deficits noted, normal affect Skin: warm, dry Results & Data Results & Data Vital Signs (Past 12 Hours) Vital Signs Temp Pulse Pulse Resp BP Pulse Ox O2 Del Method 09/15/24 08:02 36.4 C L 68 18 127/65 96 Room Air 09/15/24 04:28 56 L 09/15/24 02:25 36.6 C 63 18 105/61 95 Room Air 09/15/24 00:02 36.5 C 45 L 18 130/60 96 Room Air 09/14/24 21:51 36.8 C 70 19 125/77 93 Room Air 09/14/24 21:51 74 22 125/77 92 Room Air Laboratory Results 09/15/24 09/15/24 09/14/24 Range/Units 06:04 01:42 18:46 WBC 7.52 (4.8-10.8) K/ul RBC 4.45 L (4.70-6.10) M/uL Hgb 13.1 L (14.0-18.0) g/dl Hct 38.0 L (42.0-52.0) % MCV 85.4 (80.0-100.0) fL MCH 29.4 (25.0-34.0) pg MCHC 34.5 (32.0-36.0) g/dL RDW Std Deviation 42.7 (36.4-46.3) fL RDW Coeff of Ingrid 13.7 (11.5-14.5) % Plt Count 198 (130-400) K/uL MPV 9.8 (9.4-12.4) fL Immature Gran % (Auto) % Neut % (Auto) % Lymph % (Auto) % Telfair % (Auto) % Eos % (Auto) % Baso % (Auto) % Neut # (Auto) (1.40-6.50) K/uL Lymph # (Auto) (1.20-3.40) K/uL Telfair # (Auto) (0.11-0.59) K/uL Eos # (Auto) (0.00-0.50) K/uL Baso # (Auto) (0.00-0.20) K/uL Immature Gran # (Auto) (0.01-0.20) K/uL PT (9.0-12.0) Seconds INR (0.9-1.1) APTT (21-31) Seconds PTT Ratio Sodium 138 (136-145) mmol/L Potassium 4.0 (3.5-5.1) mmol/L Chloride 106 (98-107) mmol/L Carbon Dioxide 25 (21-32) mmol/L Anion Gap 7 (3-11) BUN 17 (6-23) mg/dl Creatinine 0.89 (0.6-1.4) mg/dl Est Cr Clr Drug Dosing 45.8 ml/min eGFR 83.46 BUN/Creatinine Ratio 19.1 (10-20) Glucose 119 H (70-99(Fasting)) mg/dl Calcium 8.3 L (8.6-10.3) mg/dl Magnesium 2.0 (1.7-2.4) mg/dl Total Bilirubin 0.6 (0.2-1.0) mg/dl AST 36 (13-39) U/L ALT 15 (7-52) U/L Alkaline Phosphatase 67 (34-104) U/L Troponin I High Sens 2372.1 H* 2535.2 H* D (0-20) pg/ml Total Protein 6.4 (6.0-8.3) gm/dl Albumin 3.5 (3.4-5.0) gm/dl Globulin 2.9 (2.5-4.0) gm/dl Albumin/Globulin Ratio 1.2 (0.9-2) Urine Color Urine Appearance (Clear) Urine pH (4.5-7.5) Ur Specific Davison (1.000-1.030) Urine Protein (Negative) Urine Glucose (UA) (Negative) Urine Ketones (Negative) Urine Blood (Negative) Urine Nitrite (Negative) Urine Bilirubin (Negative) Urine Urobilinogen (Negative) Ur Leukocyte Esterase (Negative) Urine WBC (Auto) (0-5) /hpf Urine RBC (Auto) (0-2) /hpf U Hyaline Cast (Auto) (0-2) /lpf U Epithel Cells (Auto) (0-2) /hpf Urine Bacteria (Auto) (None Seen) Adenovirus (PCR) (NotDetected) B. pertussis DNA (PCR) (NotDetected) B.parapertussis DNA PCR (NotDetected) C. pneumoniae DNA (PCR) (NotDetected) Coronavirus OC43 (PCR) (NotDetected) Coronavirus HKU1 (PCR) (NotDetected) Coronavirus 229E (PCR) (NotDetected) SARS-CoV-2 (PCR) (NotDetected) Coronavirus NL63 (PCR) (NotDetected) Human Metapneumovir PCR (NotDetected) Influenza Type A (PCR) (NotDetected) Influenza Type B (PCR) (NotDetected) M. pneumoniae (PCR) (NotDetected) Parainfluenza 1 (PCR) (NotDetected) Parainfluenza 2 (PCR) (NotDetected) Parainfluenza 3 (PCR) (NotDetected) Parainfluenza 4 (PCR) (NotDetected) RSV (PCR) (NotDetected) Entero/Rhino (PCR) (NotDetected) 09/14/24 09/14/24 09/14/24 Range/Units 12:33 10:25 10:11 WBC 9.31 (4.8-10.8) K/ul RBC 4.43 L (4.70-6.10) M/uL Hgb 13.2 L (14.0-18.0) g/dl Hct 39.1 L (42.0-52.0) % MCV 88.3 (80.0-100.0) fL MCH 29.8 (25.0-34.0) pg MCHC 33.8 (32.0-36.0) g/dL RDW Std Deviation 44.5 (36.4-46.3) fL RDW Coeff of Ingrid 13.8 (11.5-14.5) % Plt Count 200 (130-400) K/uL MPV 10.1 (9.4-12.4) fL Immature Gran % (Auto) 0.2 % Neut % (Auto) 70.5 % Lymph % (Auto) 14.2 % Telfair % (Auto) 9.9 % Eos % (Auto) 4.3 % Baso % (Auto) 0.9 % Neut # (Auto) 6.57 H (1.40-6.50) K/uL Lymph # (Auto) 1.32 (1.20-3.40) K/uL Telfair # (Auto) 0.92 H (0.11-0.59) K/uL Eos # (Auto) 0.40 (0.00-0.50) K/uL Baso # (Auto) 0.08 (0.00-0.20) K/uL Immature Gran # (Auto) 0.02 (0.01-0.20) K/uL PT 11.4 (9.0-12.0) Seconds INR 1.1 (0.9-1.1) APTT 27 (21-31) Seconds PTT Ratio 1.0 Sodium 139 (136-145) mmol/L Potassium 4.5 (3.5-5.1) mmol/L Chloride 107 (98-107) mmol/L Carbon Dioxide 26 (21-32) mmol/L Anion Gap 6 (3-11) BUN 20 (6-23) mg/dl Creatinine 1.03 (0.6-1.4) mg/dl Est Cr Clr Drug Dosing 39.5 ml/min eGFR 70.74 BUN/Creatinine Ratio 19.4 (10-20) Glucose 92 (70-99(Fasting)) mg/dl Calcium 9.0 (8.6-10.3) mg/dl Magnesium 2.1 (1.7-2.4) mg/dl Total Bilirubin 0.7 (0.2-1.0) mg/dl AST 44 H (13-39) U/L ALT 18 (7-52) U/L Alkaline Phosphatase 67 (34-104) U/L Troponin I High Sens 4287.8 H* 4961.1 H* (0-20) pg/ml Total Protein 6.6 (6.0-8.3) gm/dl Albumin 4.0 (3.4-5.0) gm/dl Globulin 2.6 (2.5-4.0) gm/dl Albumin/Globulin Ratio 1.5 (0.9-2) Urine Color Dark Yellow Urine Appearance Clear (Clear) Urine pH 5.0 (4.5-7.5) Ur Specific Davison 1.033 H (1.000-1.030) Urine Protein 2+ H (Negative) Urine Glucose (UA) Negative (Negative) Urine Ketones 1+ H (Negative) Urine Blood 2+ H (Negative) Urine Nitrite Negative (Negative) Urine Bilirubin 1+ H (Negative) Urine Urobilinogen Negative (Negative) Ur Leukocyte Esterase 1+ H (Negative) Urine WBC (Auto) >50 H (0-5) /hpf Urine RBC (Auto) 11-20 H (0-2) /hpf U Hyaline Cast (Auto) 0-2 (0-2) /lpf U Epithel Cells (Auto) 6-10 H (0-2) /hpf Urine Bacteria (Auto) None Seen (None Seen) Adenovirus (PCR) Not Detected (NotDetected) B. pertussis DNA (PCR) Not Detected (NotDetected) B.parapertussis DNA PCR Not Detected (NotDetected) C. pneumoniae DNA (PCR) Not Detected (NotDetected) Coronavirus OC43 (PCR) Not Detected (NotDetected) Coronavirus HKU1 (PCR) Not Detected (NotDetected) Coronavirus 229E (PCR) Not Detected (NotDetected) SARS-CoV-2 (PCR) Not Detected (NotDetected) Coronavirus NL63 (PCR) Not Detected (NotDetected) Human Metapneumovir PCR Not Detected (NotDetected) Influenza Type A (PCR) Not Detected (NotDetected) Influenza Type B (PCR) Not Detected (NotDetected) M. pneumoniae (PCR) Not Detected (NotDetected) Parainfluenza 1 (PCR) Not Detected (NotDetected) Parainfluenza 2 (PCR) Not Detected (NotDetected) Parainfluenza 3 (PCR) Not Detected (NotDetected) Parainfluenza 4 (PCR) Not Detected (NotDetected) RSV (PCR) Not Detected (NotDetected) Entero/Rhino (PCR) Not Detected (NotDetected) Medications Administered Current Inpatient Medications Acetaminophen (Acetaminophen 325 Mg Tab) 650 mg PO Q4H PRN PRN Reason: Pain or Fever Stop: 10/14/24 19:38 Acetylcysteine (Acetylcysteine 20% Inhal Soln 4ml Dispensed By Resp.) 5 ml INH Q12R TYRON Stop: 10/14/24 19:59 Last Admin: 09/15/24 07:15 Dose: Not Given Albuterol (Albuterol 0.083% Nebu Soln 3 Ml Vial) 2.5 mg NEB Q6H PRN; Protocol PRN Reason: Shortness Of Breath Or Wheezing Stop: 10/14/24 19:38 Aspirin (Aspirin 81 Mg Ectab) 81 mg PO DAILY TYRON Stop: 10/15/24 08:59 Last Admin: 09/15/24 09:26 Dose: 81 mg Atorvastatin Calcium (Atorvastatin 40 Mg Tab) 40 mg PO HS TYRON Stop: 10/14/24 20:59 Last Admin: 09/14/24 21:48 Dose: 40 mg Budesonide (Budesonide 0.5 Mg/2 Ml Vial (Pulmicort)) 0.5 mg NEB BIDR TYRON Stop: 10/14/24 19:59 Last Admin: 09/15/24 07:15 Dose: Not Given Clopidogrel Bisulfate (Clopidogrel Bisulfate 75 Mg Tab) 75 mg PO DAILY TYRON Stop: 10/15/24 08:59 Last Admin: 09/15/24 09:26 Dose: 75 mg Famotidine (Famotidine 20 Mg Tab) 20 mg PO HS YTRON Stop: 10/14/24 20:59 Last Admin: 09/14/24 21:48 Dose: 20 mg Finasteride (Finasteride 5 Mg Tab) 5 mg PO DAILY TYRON Stop: 10/15/24 08:59 Last Admin: 09/15/24 09:26 Dose: 5 mg Formoterol Fumarate (Formoterol 20 Mcg/2 Ml Vial) 20 mcg NEB BIDR TYRON Stop: 10/14/24 19:59 Last Admin: 09/15/24 07:15 Dose: Not Given Guaifenesin (Guaifenesin 600 Mg Tabcr) 600 mg PO Q12 TYRON Stop: 10/15/24 08:59 Last Admin: 09/15/24 09:25 Dose: 600 mg Heparin Sodium (Porcine) (Heparin Sod 5,000 Unit/0.5 Ml Vial) 5,000 units SQ Q12 TYRON Stop: 10/14/24 20:59 Last Admin: 09/15/24 09:37 Dose: 5,000 units Ceftriaxone Sodium (Rocephin) 2,000 mg in 50 mls @ 100 mls/hr IV Q24H TYRON Stop: 09/17/24 08:59 Last Infusion: 09/15/24 11:11 Dose: Infused Lorazepam (Lorazepam 0.5 Mg Tab) 0.5 mg PO Q8H PRN PRN Reason: anxiety Stop: 10/14/24 19:38 Magnesium Oxide (Magnesium Oxide 400 Mg Tab) 400 mg PO QAM TYRON Stop: 10/15/24 08:59 Last Admin: 02/27/25 09:26 Dose: 400 mg Ondansetron HCl (Ondansetron Inj 2 Mg/Ml 2 Ml Vial) 4 mg IV Q6H PRN PRN Reason: Nausea Stop: 10/14/24 19:38 Pantoprazole Sodium (Pantoprazole 40 Mg Tab) 40 mg PO QAM TYRON Stop: 10/15/24 08:59 Last Admin: 09/15/24 09:26 Dose: 40 mg Polyethylene Glycol (Polyethylene (Miralax) 17 Gm Pack) 17 gm PO DAILY PRN PRN Reason: Constipation Stop: 10/14/24 19:38 Psyllium Hydrophilic Mucilloid (Psyllium Or Guar Gum Fiber 4gm Packet) 4 gm PO QAM [facility] Stop: 10/15/24 08:59 Last Admin: 09/15/24 09:27 Dose: Not Given Sertraline HCl (Sertraline Hcl 50 Mg Tablet) 50 mg PO QAM [facility] Stop: 10/15/24 08:59 Last Admin: 09/15/24 09:26 Dose: 50 mg Sodium Chloride (Sodium Chlor 7% 4 Ml Neb) 4 ml NEB BIDR TYRON Stop: 10/14/24 19:59 Last Admin: 09/15/24 07:15 Dose: Not Given Trazodone HCl (Trazodone Hcl 50 Mg Tab) 50 mg PO HS [facility] Stop: 10/14/24 20:59 Last Admin: 09/14/24 21:48 Dose: 50 mg Vitamin D (Cholecalciferol 25 Mcg (1000 Units) Tab) 25 mcg PO DAILY TYRON Stop: 10/15/24 08:59 Last Admin: 09/15/24 09:27 Dose: 25 mcg (4) COPD (chronic obstructive pulmonary disease) COPD type: emphysema Emphysema type: unspecified Qualified Code(s): J43.9 - Emphysema, unspecified
[2024-09-15] MEDS: cefTRIAXone SODIUM 2,000 MG/50 ML BAG IV SCH (09:24)
[2024-09-15] MEDS: guaiFENesin 600 MG TABCR PO SCH (09:25)
[2024-09-15] MEDS: PANTOprazole 40 MG TAB PO SCH (09:26)
[2024-09-15] MEDS: MAGNESIUM OXIDE 400 MG TAB PO SCH (09:26)
[2024-09-15] MEDS: SERTRALINE HCL 50 MG TABLET PO SCH (09:26)
[2024-09-15] MEDS: ASPIRIN 81 MG ECTAB PO SCH (09:26)
[2024-09-15] MEDS: CLOPIDOGREL BISULFATE 75 MG TAB PO SCH (09:26)
[2024-09-15] MEDS: FINASTERIDE 5 MG TAB PO SCH (09:26)
[2024-09-15] MEDS: CHOLECALCIFEROL 25 MCG (1000 UNITS) TAB PO SCH (09:27)
[2024-09-15] MEDS: PSYLLIUM or GUAR GUM FIBER 4GM PACKET PO SCH (09:27)
--- NOTE | 2024-09-15 11:58 | Cardiology Progress Note ---
Date of Service September 15, 2024 Assessment & Plan (1) CASTILLO (dyspnea on exertion): (2) Elevated troponin: (3) CAD (coronary artery disease): (4) COPD (chronic obstructive pulmonary disease): (5) Ventricular ectopy: Plan 09/14/24: Patient admitted for ongoing dyspnea and intermittent dizziness. Etiology of his SOB uncertain. He underwent cardiac cath yesterday due to his symptoms of exertional dyspnea and found to have multivessel disease and received SMITA to the prox/mid LAD. med management recommended for other moderate non obstructive disease. HS troponin elevated on admission today. He reports no chest pain. Likely indicative of coronary intervention yesterday. Discussed with interventional cardiology and in agreement that HS troponin likely due to intervention. Echo with low normal LVEF, no wall motion abnormalities. EKG without acute ischemic changes. Continue ASA, plavix, statin. He has known frequent ventricular ectopy and follows with EP. History of borderline bradycardia as well with junctional rhythm on outpatient ZIO. Add magnesium oxide 400 mg daily Consider low dose beta mallika overnight and monitor on telemetry. Chest CTA on admission today demonstrates probable severe emphysema. He is hypoxic in ER at rest and with ambulation. Supplement O2 to keep O2 Sats > 90%. May need 2 step Consider treatment for COPD exacerbation. 09/15/24: Ongoing exertional dyspnea reported by patient. Possibly underlying severe pulm disease noted on chest CT with mucous plugging Continue nebs, Mucinex. Abx started by hospitalist. Monitor O2 May need 2 step prior to discharge. HS troponin elevated on admission and trending downward. Consistent with intervention to the LAD on 09/13. Echo repeated and normal LVEF, no wall motion abnormalities. Frequent ventricular ectopy with intermittent ectopic atrial rhythm. Long history of PVC's, non sustained VT. Beta mallika not previously started due to history of junctional bradycardia as well. He would likely benefit from initiation of beta mallika due to ectopy and CAD. However, given his bradycardia, this has been contraindicated and pacemaker has been previously discussed. We are not certain if this would aid his dyspnea and dizziness. encourage ambulation today and monitor on telemetry. Case had been discussed with Dr. Rodriguez. Will review need for pacemaker tomorrow. Will make NPO at midnight. Continue magnesium. CAD s/p LAD stent on 09/13/24 -continue ASA, plavix, statin Case discussed with Dr. Blue Ely spent a total of 45 minutes on the date of service in preparation, delivery, and documentation of the care provided to this patient, excluding any time spent in the performance of separately billed services. Connie Gunter PA-C Department of Cardiology, [facility] This chart was completed in part utilizing Speech Voice Recognition Software. Grammatical errors, random word insertions, pronoun errors, and incomplete sentences are an occasional consequence of this system due to software limitations, ambient noise, and hardware issues. Any formal questions or concerns about the content, text, or information contained within the body of this dictation should be directly addressed to the provider for clarification. Admission and Anticipated Discharge Date Admission Date: September 14, 2024 Supervising Physician Co-Signing Physician Notes Patient seen and examined personally. Care and management as outlined above. Discussed and personally endorsed 88-year-old male status post coronary intervention drug-eluting stent to the proximal mid left anterior Descending Echocardiogram without new findings. EKG with chronic ventricular ectopy, bigeminy Clinically, this morning he has some mild breathlessness when asked evidently. But no hypoxia at rest. Telemetry continues to demonstrate frequent ventricular ectopy and bigeminy but no profound bradycardia. Currently no indication for pacemaker EKG with ectopic atrial rhythm but no bradycardia arrhythmias. As above will increase activities in hospital, maintain telemetry Keep n.p.o. after midnight Subjective Patient resting in bed comfortably. Reports ongoing dyspnea with minimal exertion such as ambulating to the toilet. No chest pain. Ongoing cough noted. No orthopnea, PND or edema. Mild dizziness with ambulation noted this morning. Ongoing ventricular ectopy noted but frequency slightly improved this morning. Having intermittent ectopic atrial rhythm noted on telemetry as well. No symptomatic bradycardia Review of Systems Review of Systems: All systems reviewed & are unremarkable except as noted in HPI & below Physical Exam Constitutional: WD/WN, vitals as above + thin; no acute distress Neck: trachea midline, no thyromegaly Respiratory: able to speak in complete sentences (Mild conversational dyspnea); no respiratory distress Auscultation: + diminished lung sounds; no crackles, no rales and no rhonchi Cardiovascular: Rate/Rhythm: regular rate and regular rhythm Heart Sounds: normal S1 and normal S2; no murmur Vessels: no JVD Extremities: no edema Gastrointestinal (Abdomen): normal bowel sounds, soft, nontender, no hepatosplenomegaly Neurologic: PERRL, EOMI, accommodation nl, no face palsy, no dysarthria Results & Data Vital Signs (Past 12 Hours) Vital Signs Temp Pulse Pulse Resp BP Pulse Ox O2 Del Method 09/15/24 11:30 36.3 C L 61 18 126/68 95 Room Air 09/15/24 08:02 36.4 C L 68 18 127/65 96 Room Air 09/15/24 04:28 56 L 09/15/24 02:25 36.6 C 63 18 105/61 95 Room Air 09/15/24 00:02 36.5 C 45 L 18 130/60 96 Room Air Laboratory Results Cardiac Enzymes 09/14/24 09/14/24 09/14/24 Range/Units 10:11 12:33 18:46 AST (13-39) U/L Troponin I High Sens 4961.1 H* 4287.8 H* 2535.2 H* D (0-20) pg/ml 09/15/24 09/15/24 Range/Units 01:42 06:04 AST 36 (13-39) U/L Troponin I High Sens 2372.1 H* (0-20) pg/ml CBC 09/15/24 Range/Units 06:04 WBC 7.52 (4.8-10.8) K/ul RBC 4.45 L (4.70-6.10) M/uL Hgb 13.1 L (14.0-18.0) g/dl Hct 38.0 L (42.0-52.0) % Plt Count 198 (130-400) K/uL Comprehensive Metabolic Panel 09/15/24 Range/Units 06:04 Sodium 138 (136-145) mmol/L Potassium 4.0 (3.5-5.1) mmol/L Chloride 106 (98-107) mmol/L Carbon Dioxide 25 (21-32) mmol/L BUN 17 (6-23) mg/dl Creatinine 0.89 (0.6-1.4) mg/dl Glucose 119 H (70-99(Fasting)) mg/dl Calcium 8.3 L (8.6-10.3) mg/dl AST 36 (13-39) U/L ALT 15 (7-52) U/L Alkaline Phosphatase 67 (34-104) U/L Total Protein 6.4 (6.0-8.3) gm/dl Albumin 3.5 (3.4-5.0) gm/dl Intake and Output 09/14/24 09/15/24 09/15/24 22:59 06:59 14:59 Intake Total 120 / 120 50 / 50 Output Total 500 / 500 Balance -380 / -380 50 / 50 Intake: IV 50 / 50 cefTRIAXone SODIUM 2,000 mg In 50 / 50 50 ml @ 100 mls/hr IV Q24H [facility] Rx#:[id number] Oral 120 / 120 Output: Urine Amount (Catheter) 500 / 500 External 500 / 500 Other: Weight 54.3 kg 54.3 kg Weight Measurement Method Built in [facility] Diagnostic Findings Telemetry reviewed: NSR with PVC's. No sustained arrhythmias. Intermittent ectopic atrial rhythm. EKG reviewed from 09/15/24; Probable ectopic atrial rhythm at 59 bmp PVC's have resolved Echo report reviewed dated 09/14/24: Frequent ventricular ectopy noted during exam LV is normal in size no wall motion abnormalities LVEF 50-55% Aortic valve sclerosis mild without significant aortic valvular stenosis No pericardial effusion RV is normal in size and function Medications Administered Current Inpatient Medications Acetaminophen (Acetaminophen 325 Mg Tab) 650 mg PO Q4H PRN PRN Reason: Pain or Fever Stop: 10/14/24 19:38 Acetylcysteine (Acetylcysteine 20% Inhal Soln 4ml Dispensed By Resp.) 5 ml INH Q12R [facility] Stop: 10/14/24 19:59 Last Admin: 09/15/24 07:15 Dose: Not Given Albuterol (Albuterol 0.083% Nebu Soln 3 Ml Vial) 2.5 mg NEB Q6H PRN; Protocol PRN Reason: Shortness Of Breath Or Wheezing Stop: 10/14/24 19:38 Aspirin (Aspirin 81 Mg Ectab) 81 mg PO DAILY TYRON Stop: 10/15/24 08:59 Last Admin: 09/15/24 09:26 Dose: 81 mg Atorvastatin Calcium (Atorvastatin 40 Mg Tab) 40 mg PO HS [facility] Stop: 10/14/24 20:59 Last Admin: 09/14/24 21:48 Dose: 40 mg Budesonide (Budesonide 0.5 Mg/2 Ml Vial (Pulmicort)) 0.5 mg NEB BIDR TYRON Stop: 10/14/24 19:59 Last Admin: 09/15/24 07:15 Dose: Not Given Clopidogrel Bisulfate (Clopidogrel Bisulfate 75 Mg Tab) 75 mg PO DAILY TYRON Stop: 10/15/24 08:59 Last Admin: 09/15/24 09:26 Dose: 75 mg Famotidine (Famotidine 20 Mg Tab) 20 mg PO HS TYRON Stop: 10/14/24 20:59 Last Admin: 09/14/24 21:48 Dose: 20 mg Finasteride (Finasteride 5 Mg Tab) 5 mg PO DAILY TYRON Stop: 10/15/24 08:59 Last Admin: 09/15/24 09:26 Dose: 5 mg Formoterol Fumarate (Formoterol 20 Mcg/2 Ml Vial) 20 mcg NEB BIDR [facility] Stop: 10/14/24 19:59 Last Admin: 09/15/24 07:15 Dose: Not Given Guaifenesin (Guaifenesin 600 Mg Tabcr) 600 mg PO Q12 TYRON Stop: 10/15/24 08:59 Last Admin: 09/15/24 09:25 Dose: 600 mg Heparin Sodium (Porcine) (Heparin Sod 5,000 Unit/0.5 Ml Vial) 5,000 units SQ Q12 TYRON Stop: 10/14/24 20:59 Last Admin: 09/15/24 09:37 Dose: 5,000 units Ceftriaxone Sodium (Rocephin) 2,000 mg in 50 mls @ 100 mls/hr IV Q24H TYRON Stop: 09/17/24 08:59 Last Infusion: 09/15/24 11:11 Dose: Infused Lorazepam (Lorazepam 0.5 Mg Tab) 0.5 mg PO Q8H PRN PRN Reason: anxiety Stop: 10/14/24 19:38 Magnesium Oxide (Magnesium Oxide 400 Mg Tab) 400 mg PO QAM [facility] Stop: 10/15/24 08:59 Last Admin: 09/15/24 09:26 Dose: 400 mg Ondansetron HCl (Ondansetron Inj 2 Mg/Ml 2 Ml Vial) 4 mg IV Q6H PRN PRN Reason: Nausea Stop: 10/14/24 19:38 Pantoprazole Sodium (Pantoprazole 40 Mg Tab) 40 mg PO QAM [facility] Stop: 10/15/24 08:59 Last Admin: 09/15/24 09:26 Dose: 40 mg Polyethylene Glycol (Polyethylene (Miralax) 17 Gm Pack) 17 gm PO DAILY PRN PRN Reason: Constipation Stop: 10/14/24 19:38 Psyllium Hydrophilic Mucilloid (Psyllium Or Guar Gum Fiber 4gm Packet) 4 gm PO QAM [facility] Stop: 10/15/24 08:59 Last Admin: 09/15/24 09:27 Dose: Not Given Sertraline HCl (Sertraline Hcl 50 Mg Tablet) 50 mg PO QAM [facility] Stop: 10/15/24 08:59 Last Admin: 09/15/24 09:26 Dose: 50 mg Sodium Chloride (Sodium Chlor 7% 4 Ml Neb) 4 ml NEB BIDR TYRON Stop: 10/14/24 19:59 Last Admin: 09/15/24 07:15 Dose: Not Given Trazodone HCl (Trazodone Hcl 50 Mg Tab) 50 mg PO HS [facility] Stop: 10/14/24 20:59 Last Admin: 09/14/24 21:48 Dose: 50 mg Vitamin D (Cholecalciferol 25 Mcg (1000 Units) Tab) 25 mcg PO DAILY YTRON Stop: 10/15/24 08:59 Last Admin: 09/15/24 09:27 Dose: 25 mcg (4) COPD (chronic obstructive pulmonary disease) COPD type: emphysema Emphysema type: unspecified Qualified Code(s): J43.9 - Emphysema, unspecified
--- NOTE | 2024-09-15 15:03 | Pulmonary Consultation ---
Date of Consultation September 15, 2024 Assessment & Plan (1) COPD with emphysema: (2) CAD (coronary artery disease): (3) Pulmonary nodule: (4) Abnormal chest CT: Plan CTA chest 09/14/2024 personally reviewed: Severe centrilobular and paraseptal emphysema appreciated bilaterally Bilateral apical pleural scarring Left upper lobe anterior 7 mm peripheral pulmonary nodule (new compared to 07/09) Mucus appreciated starting from trachea and going into right main as well as left main No significant mediastinal lymphadenopathy 2D echo 09/14/2024: EF 50-55%, mild AV sclerosis, RV normal in size and function -- COPD with emphysema Supposed to be on Advair 115 at home but using only albuterol Respiratory BioFire negative for everything on 09/14/2024 -- Pulmonary nodule Left upper lobe 7 mm New compared to 07/[address] chest in 3 months Plan: Patient was educated regarding importance of maintenance inhaler. He is interested in nebulized medication instead of inhalers. Recommend budesonide and Perforomist or Brovana nebulized on discharge along with Spiriva or Incruse Recommend CT chest to be done in 3 months Complete the course of antibiotics for 5 days Agree with Mucinex as was hypertonic saline nebulizer given in the endobronchial mucous Continue with flutter valve Please note the above document was generated using voice recognition software. It may contain grammatical, syntax or spelling errors.Any formal questions or concerns about the content, text or information contained within the body of this dictation should be directly addressed to the provider for clarification. History of Present Illness Attending Physician: Eliazar Sheth MD History of Present Illness 88-year-old male admitted to the hospital for shortness of breath Past medical history: COPD, dyslipidemia, bladder cancer s/p TURB T, anxiety/depression, coronary artery disease s/p stent to LAD on 09/13/2024 Pulmonary consulted for COPD At the time of examination patient was saturating 95 to 95% on room air He says that he has been having issues with breathing for a long time He is only using albuterol at home. He is worried that any other inhalers he takes it is reactive with trazodone and sertraline. He is able to walk less than a block before he has to stop to catch his breath Is mostly huffing and puffing but occasional chest tightness and wheezing Morning cough with clear phlegm. Denies any hemoptysis He had multiple questions regarding the extent of his COPD and emphysema which were answered appropriately Social history: [id number] smoking history, quit a while ago. 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 Allergies Allergy/AdvReac Type Severity Reaction Status Date / Time No Known Allergies Allergy Mild Unverified 09/13/24 11:14 Home Medications Medication Instructions Recorded Confirmed Type atorvastatin 40 mg tablet 40 mg PO HS 12/27/19 09/14/24 History cholecalciferol (vitamin D3) 25 25 mcg PO DAILY 12/27/19 09/14/24 History mcg (1,000 unit) tablet (Vitamin D3) fluoride (sodium) 1.1 % dental 1 applic PO DAILY 12/03/23 09/14/24 History paste (PreviDent 5000 Booster Plus) trazodone 50 mg tablet 50 mg PO HS Insomnia 12/03/23 09/14/24 History lorazepam 0.5 mg tablet (Ativan) 0.5 mg PO Q8H PRN anxiety #20 tabs 12/17/23 09/14/24 Rx pantoprazole 40 mg tablet,delayed 40 mg PO QAM 04/08/24 09/14/24 History release sertraline 100 mg tablet 50 mg PO QAM 04/08/24 09/14/24 History aspirin 81 mg tablet,delayed 81 mg PO DAILY #90 tabs 09/13/24 09/14/24 Rx release clopidogrel 75 mg tablet 75 mg PO DAILY #30 tabs 09/13/24 09/14/24 Rx famotidine 20 mg tablet 20 mg PO HS 09/13/24 09/14/24 History finasteride 5 mg tablet 5 mg PO DAILY 09/13/24 09/14/24 History fluticasone propionate 115 2 puff inhalation BID 09/13/24 09/14/24 History mcg-salmeterol 21 mcg/actuation HFA inhaler nitroglycerin 0.4 mg sublingual 0.4 mg sublingual DIRECTED PRN 09/13/24 09/14/24 History tablet Chest Pain albuterol sulfate 90 mcg/actuation 2 puff inhalation Q4H PRN 09/14/24 09/14/24 History aerosol inhaler Shortness Of Breath Or Wheezing psyllium 1 packet PO DAILY 09/14/24 09/14/24 History Patient History Medical History Dizziness Surgical History Hx of cystoscopy History of cardiac catheterization 09/13/24. Dr Cross History of esophagogastroduodenoscopy (EGD) History of colonoscopy Family History Mother Lung cancer Father Coronary heart disease Social History Smoking Status: Unknown if ever smoked Tobacco Type: Cigarettes Cigarettes Per Day: 20; Second Hand Exposure: Yes; Do You Dip or Chew Tobacco: No; Hx Alcohol Use: No Hx Substance Use: No Preferred Language: Mongolian Communication Ability: Effective Compliance Aide Required: No Beliefs That Will Affect Care: None marital status: Current Living Situation: Family Current Living Situation Comment: lives with brother Feels Safe at Home: Yes Safety Concerns: Feels Safe At This Time Assistive Devices: Walker Review of Systems 2 Review of Systems: All systems reviewed & are unremarkable except as noted in HPI & below Physical Exam 2 Physical Exam: Constitutional: No acute distress HEENT: EOMI, PERRLA Respiratory system: Decreased air entry bilaterally, no wheeze, no rhonchi, no crackles CVS: S1-S2 positive, no murmurs or gallops Abdomen: Soft, nontender, nondistended, positive bowel sounds x4 Extremities: +2 pulses bilaterally radialis/ dorsalis pedis, no cyanosis, no edema Neuro: Awake alert oriented x3 Psych: Normal mood and affect G/U: No Grimm Skin: no rashes, warm and dry Lymphatic: no cervical or axillary lymphadenopathy Results & Data Results & Data Vital Signs (Past 12 Hours) Vital Signs Temp Pulse Pulse Resp BP Pulse Ox O2 Del Method 09/15/24 11:30 36.3 C L 61 18 126/68 95 Room Air 09/15/24 08:02 36.4 C L 68 18 127/65 96 Room Air 09/15/24 04:28 56 L Laboratory Results 09/15/24 06:04 09/15/24 06:04 PG Care Time/CCT Total # of Minutes Spent Total Time Spent with Patient: Total time spent is greater than 50% in coordination of care (as documented) at patient's floor/unit and/or counseling patient: Coding Level of Care Code 60569 INT INP/OBS CARE MIN Diagnoses COPD with emphysema J43.9 CAD (coronary artery disease) I25.10 Pulmonary nodule R91.[address] R93.89
[2024-09-15] MEDS: SODIUM CHLORIDE 0.9% 500 ML IV ONE (18:29)
--- NOTE | 2024-09-15 21:22 | Electrocardiogram Report ---
Test Reason : Blood Pressure : */* mmHG Vent. Rate : 60 BPM Atrial Rate : 60 BPM P-R Int : 138 ms QRS Dur : 80 ms QT Int : 460 ms P-R-T Axes : 76 71 85 degrees QTcB Int : 460 ms Sinus rhythm with frequent Premature ventricular complexes in a pattern of bigeminy Nonspecific ST abnormality Abnormal ECG When compared with ECG of 07-Apr-2024 20:54, Premature ventricular complexes are now Present Confirmed by John Mann ([id number]) on 09/15/2024 9:22:12 PM Referred By: REFERRED SELF Confirmed By: John Mann
--- NOTE | 2024-09-15 21:23 | Electrocardiogram Report ---
Test Reason : Blood Pressure : */* mmHG Vent. Rate : 59 BPM Atrial Rate : 59 BPM P-R Int : 144 ms QRS Dur : 92 ms QT Int : 478 ms P-R-T Axes : -71 73 85 degrees QTcB Int : 473 ms Unusual P axis, possible ectopic atrial bradycardia Nonspecific ST abnormality Abnormal ECG When compared with ECG of 14-Sep-2024 09:58, Ectopic atrial rhythm has replaced Sinus rhythm Premature ventricular complexes are no longer Present Confirmed by oJhn Mann ([id number]) on 09/15/2024 9:22:55 PM Referred By: REFERRED SELF Confirmed By: John Mann
[2024-09-16 06:49] LABS: Hematocrit (blood only) 35.9 % (42.0-52.0); Hemoglobin 12.3 g/dl (14.0-18.0); Mean Corpuscular Hemoglobin 29.5 pg (25.0-34.0); Mean Corpuscular Hgb Conc 34.3 g/dL (32.0-36.0); Mean Corpuscular Volume 86.1 fL (80.0-100.0); Mean Platelet Volume 10.2 fL (9.4-12.4); Platelet Count 192 K/uL (130-400); RDW Coefficient of Variation 13.7 % (11.5-14.5); RDW Standard Deviation 42.9 fL (36.4-46.3); Red Blood Count 4.17 M/uL (4.70-6.10); White Blood Count 6.91 K/ul (4.8-10.8)
[2024-09-16 07:21] LABS: BUN Creatinine Ratio 21.7 (10-20); Calcium 7.9 mg/dl (8.6-10.3); Magnesium 1.9 mg/dl (1.7-2.4); Phosphorus 3.9 mg/dl (2.5-4.9); Potassium 4.2 mmol/L (3.5-5.1)
[2024-09-16 07:51] VITALS: RESP 18
--- NOTE | 2024-09-16 09:20 | Pulmonology Progress Note ---
Date of Service September 16, 2024 Assessment & Plan (1) COPD with emphysema: (2) CAD (coronary artery disease): (3) Pulmonary nodule: (4) Abnormal chest CT: Plan CTA chest 09/14/2024 personally reviewed: Severe centrilobular and paraseptal emphysema appreciated bilaterally Bilateral apical pleural scarring Left upper lobe anterior 7 mm peripheral pulmonary nodule (new compared to 07/09) Mucus appreciated starting from trachea and going into right main as well as left main No significant mediastinal lymphadenopathy 2D echo 09/14/2024: EF 50-55%, mild AV sclerosis, RV normal in size and function -- COPD with emphysema Supposed to be on Advair 115 at home but using only albuterol Respiratory BioFire negative for everything on 09/14/2024 -- Pulmonary nodule Left upper lobe 7 mm New compared to 07/[address] chest in 3 months Plan: Recommend budesonide and Perforomist or Brovana nebulized on discharge along with Spiriva or Incruse Recommend CT chest to be done in 3 months Complete the course of antibiotics for 5 days Agree with Mucinex as was hypertonic saline nebulizer given in the endobronchial mucous Continue with flutter valve. Recommend Mucinex and flutter valve even at home Patient will ultimately benefit from pulmonary rehab but I think completing cardiac rehab first would be a good start Please note the above document was generated using voice recognition software. It may contain grammatical, syntax or spelling errors.Any formal questions or concerns about the content, text or information contained within the body of this dictation should be directly addressed to the provider for clarification. Admission and Anticipated Discharge Date Admission Date: September 14, 2024 Subjective Patient seen and examined at bedside. No acute distress, no adverse events overnight He was saturating 97-98% on room air while standing and talking to me Stated that he was able to tolerate nebulizers, coughing up clear phlegm. No hemoptysis Denied any chest pain, no dizziness or palpitation Review of Systems 2 Review of Systems: All systems reviewed & are unremarkable except as noted in Subjective Physical Exam 2 Physical Exam: Constitutional: No acute distress HEENT: EOMI, PERRLA Respiratory system: Decreased air entry bilaterally, no wheeze, no rhonchi, no crackles CVS: S1-S2 positive, no murmurs or gallops Abdomen: Soft, nontender, nondistended, positive bowel sounds x4 Extremities: +2 pulses bilaterally radialis/ dorsalis pedis, no cyanosis, no edema Neuro: Awake alert oriented x3 Psych: Normal mood and affect G/U: No Grimm Skin: no rashes, warm and dry Lymphatic: no cervical or axillary lymphadenopathy Results & Data Results & Data Vital Signs (Past 12 Hours) Vital Signs Temp Pulse Pulse Resp BP Pulse Ox O2 Del Method 09/16/24 07:50 36.5 C 35 L 18 122/49 L 95 Room Air 09/16/24 07:27 73 16 92 Room Air 09/16/24 02:32 36.3 C L 93 H 18 107/43 L 93 Room Air 09/16/24 02:02 68 09/15/24 22:38 36.4 C L 36 L 18 144/58 H 95 Room Air Laboratory Results 09/16/24 06:07 09/16/24 06:07 PG Care Time/CCT Total # of Minutes Spent Total Time Spent with Patient: Total time spent is greater than 50% in coordination of care (as documented) at patient's floor/unit and/or counseling patient: Coding Level of Care Code 46692 SUB INP/OBS CARE 2/35MIN Diagnoses COPD with emphysema J43.9 CAD (coronary artery disease) I25.10 Pulmonary nodule R91.[address] R93.89
--- NOTE | 2024-09-16 12:11 | Cardiology Progress Note ---
Date of Service September 16, 2024 Assessment & Plan (1) CASTILLO (dyspnea on exertion): (2) Elevated troponin: (3) CAD (coronary artery disease): (4) COPD (chronic obstructive pulmonary disease): (5) Ventricular ectopy: Plan 09/14/24: Patient admitted for ongoing dyspnea and intermittent dizziness. Etiology of his SOB uncertain. He underwent cardiac cath yesterday due to his symptoms of exertional dyspnea and found to have multivessel disease and received SMITA to the prox/mid LAD. med management recommended for other moderate non obstructive disease. HS troponin elevated on admission today. He reports no chest pain. Likely indicative of coronary intervention yesterday. Discussed with interventional cardiology and in agreement that HS troponin likely due to intervention. Echo with low normal LVEF, no wall motion abnormalities. EKG without acute ischemic changes. Continue ASA, plavix, statin. He has known frequent ventricular ectopy and follows with EP. History of borderline bradycardia as well with junctional rhythm on outpatient ZIO. Add magnesium oxide 400 mg daily Consider low dose beta mallika overnight and monitor on telemetry. Chest CTA on admission today demonstrates probable severe emphysema. He is hypoxic in ER at rest and with ambulation. Supplement O2 to keep O2 Sats > 90%. May need 2 step Consider treatment for COPD exacerbation. 09/15/24: Ongoing exertional dyspnea reported by patient. Possibly underlying severe pulm disease noted on chest CT with mucous plugging Continue nebs, Mucinex. Abx started by hospitalist. Monitor O2 May need 2 step prior to discharge. HS troponin elevated on admission and trending downward. Consistent with intervention to the LAD on 09/13. Echo repeated and normal LVEF, no wall motion abnormalities. Frequent ventricular ectopy with intermittent ectopic atrial rhythm. Long history of PVC's, non sustained VT. Beta mallika not previously started due to history of junctional bradycardia as well. He would likely benefit from initiation of beta mallika due to ectopy and CAD. However, given his bradycardia, this has been contraindicated and pacemaker has been previously discussed. We are not certain if this would aid his dyspnea and dizziness. encourage ambulation today and monitor on telemetry. Case had been discussed with Dr. Rodriguez. Will review need for pacemaker tomorrow. Will make NPO at midnight. Continue magnesium. CAD s/p LAD stent on 09/13/24 -continue ASA, plavix, statin 09/16/24: Telemetry reviewed overnight. NSR with ventricular bigeminy. Long history of PVC's. This is not a new finding. No bradycardia noted. HR did not drop below 60. HR's in vital signs were taken by pulse ox and this is false low reading. No indications for pacemaker at this time. His dyspnea is likely related to his underlying emphysema. Appreciate pulm's recommendations and titration of meds. Encouraged ambulation. If patient feeling well, anticipate discharge later today Case discussed with Dr. Mcarthur I spent a total of 35 minutes on the date of service in preparation, delivery, and documentation of the care provided to this patient, excluding any time spent in the performance of separately billed services. Conine Gunter PA-C Department of Cardiology, [facility] This chart was completed in part utilizing Speech Voice Recognition Software. Grammatical errors, random word insertions, pronoun errors, and incomplete sentences are an occasional consequence of this system due to software limitations, ambient noise, and hardware issues. Any formal questions or concerns about the content, text, or information contained within the body of this dictation should be directly addressed to the provider for clarification. Admission and Anticipated Discharge Date Admission Date: September 14, 2024 Supervising Physician Co-Signing Physician Notes Patient seen and examined personally. Care and management as outlined above. Discussed and personally endorsed 88-year-old male status post coronary intervention drug-eluting stent to the proximal mid left anterior Descending EKG and telemetry with chronic ventricular bigeminy. No indications for pacemaker. Patient appears clinically improved since hospitalization now ambulating in the hallway. No rest dyspnea. Would place referral for cardiac rehab No further recommendations Subjective Patient resting in bed and ambulating in hallways this morning, feeling relatively well. No dizziness or lightheadedness. Still reports mild dyspnea, but appears improved from admission. no chest pain. Review of Systems Review of Systems: All systems reviewed & are unremarkable except as noted in HPI & below Physical Exam Constitutional: WD/WN, vitals as above + thin; no acute distress Neck: trachea midline, no thyromegaly Respiratory: no respiratory distress Auscultation: + diminished lung sounds; no crackles, no rales and no rhonchi Cardiovascular: Rate/Rhythm: regular rate and regular rhythm Heart Sounds: normal S1 and normal S2; no murmur Vessels: no JVD Extremities: no edema Gastrointestinal (Abdomen): normal bowel sounds, soft, nontender, no hepatosplenomegaly Neurologic: PERRL, EOMI, accommodation nl, no face palsy, no dysarthria Results & Data Vital Signs (Past 12 Hours) Vital Signs Temp Pulse Pulse Resp BP Pulse Ox O2 Del Method 09/16/24 07:50 36.5 C 35 L 18 122/49 L 95 Room Air 09/16/24 07:27 73 16 92 Room Air 09/16/24 02:32 36.3 C L 93 H 18 107/43 L 93 Room Air 09/16/24 02:02 68 Laboratory Results CBC 09/16/24 Range/Units 06:07 WBC 6.91 (4.8-10.8) K/ul RBC 4.17 L (4.70-6.10) M/uL Hgb 12.3 L (14.0-18.0) g/dl Hct 35.9 L (42.0-52.0) % Plt Count 192 (130-400) K/uL Comprehensive Metabolic Panel 09/16/24 Range/Units 06:07 Sodium 138 (136-145) mmol/L Potassium 4.2 (3.5-5.1) mmol/L Chloride 109 H (98-107) mmol/L Carbon Dioxide 25 (21-32) mmol/L BUN 20 (6-23) mg/dl Creatinine 0.92 (0.6-1.4) mg/dl Glucose 95 (70-99(Fasting)) mg/dl Calcium 7.9 L (8.6-10.3) mg/dl Intake and Output 09/15/24 09/16/24 09/16/24 22:59 06:59 14:59 Intake Total 200 / 990 500 / 990 50 / 50 Output Total 825 / 825 Balance -625 / 165 500 / 165 50 / 50 Intake: IV 500 / 550 50 / 50 Sodium Chloride 0.9% 500 ml @ 500 / 500 80 mls/hr IV .Q6H15M ONE Rx#: [id number] cefTRIAXone SODIUM 2,000 mg In 50 / 50 50 ml @ 100 mls/hr IV Q24H [facility] Rx#:[id number] Oral 200 / 440 Output: Urine 825 / 825 Other: Weight 55.248 kg Weight Measurement Method Built in [facility] Diagnostic Findings Telemetry reviewed: NSR with ventricular bigeminy. Intermittent ectopic atrial rhythm. No bradycardia, pauses or high degree AV block. EKG reviewed: NSR with ventricular bigeminy and intermittent ectopic atrial rhythm. Medications Administered Current Inpatient Medications Acetaminophen (Acetaminophen 325 Mg Tab) 650 mg PO Q4H PRN PRN Reason: Pain or Fever Stop: 10/14/24 19:38 Albuterol (Albuterol 0.083% Nebu Soln 3 Ml Vial) 2.5 mg NEB Q6H PRN; Protocol PRN Reason: Shortness Of Breath Or Wheezing Stop: 10/14/24 19:38 Aspirin (Aspirin 81 Mg Ectab) 81 mg PO DAILY TYRON Stop: 10/15/24 08:59 Last Admin: 09/16/24 08:51 Dose: 81 mg Atorvastatin Calcium (Atorvastatin 40 Mg Tab) 40 mg PO HS TYRON Stop: 10/14/24 20:59 Last Admin: 09/15/24 20:08 Dose: 40 mg Budesonide (Budesonide 0.5 Mg/2 Ml Vial (Pulmicort)) 0.5 mg NEB BIDR TYRON Stop: 10/14/24 19:59 Last Admin: 09/16/24 07:24 Dose: 0.5 mg Clopidogrel Bisulfate (Clopidogrel Bisulfate 75 Mg Tab) 75 mg PO DAILY TYRON Stop: 10/15/24 08:59 Last Admin: 09/16/24 08:51 Dose: 75 mg Famotidine (Famotidine 20 Mg Tab) 20 mg PO HS TYRON Stop: 10/14/24 20:59 Last Admin: 09/15/24 20:08 Dose: 20 mg Finasteride (Finasteride 5 Mg Tab) 5 mg PO DAILY TYRON Stop: 10/15/24 08:59 Last Admin: 09/16/24 08:51 Dose: 5 mg Formoterol Fumarate (Formoterol 20 Mcg/2 Ml Vial) 20 mcg NEB BIDR TYRON Stop: 10/14/24 19:59 Last Admin: 09/16/24 07:27 Dose: Not Given Guaifenesin (Guaifenesin 600 Mg Tabcr) 600 mg PO Q12 TYRON Stop: 10/15/24 08:59 Last Admin: 09/16/24 08:51 Dose: 600 mg Heparin Sodium (Porcine) (Heparin Sod 5,000 Unit/0.5 Ml Vial) 5,000 units SQ Q12 TYRON Stop: 10/14/24 20:59 Last Admin: 09/16/24 08:57 Dose: 5,000 units Ceftriaxone Sodium (Rocephin) 2,000 mg in 50 mls @ 100 mls/hr IV Q24H TYRON Stop: 09/17/24 08:59 Last Infusion: 09/16/24 10:04 Dose: Infused Lorazepam (Lorazepam 0.5 Mg Tab) 0.5 mg PO Q8H PRN PRN Reason: anxiety Stop: 10/14/24 19:38 Magnesium Oxide (Magnesium Oxide 400 Mg Tab) 400 mg PO QAM TYRON Stop: 10/15/24 08:59 Last Admin: 09/16/24 08:57 Dose: 400 mg Ondansetron HCl (Ondansetron Inj 2 Mg/Ml 2 Ml Vial) 4 mg IV Q6H PRN PRN Reason: Nausea Stop: 10/14/24 19:38 Pantoprazole Sodium (Pantoprazole 40 Mg Tab) 40 mg PO QAM TYRON Stop: 10/15/24 08:59 Last Admin: 09/16/24 08:51 Dose: 40 mg Polyethylene Glycol (Polyethylene (Miralax) 17 Gm Pack) 17 gm PO DAILY PRN PRN Reason: Constipation Stop: 10/14/24 19:38 Psyllium Hydrophilic Mucilloid (Psyllium Or Guar Gum Fiber 4gm Packet) 4 gm PO QAM TYRON Stop: 10/15/24 08:59 Last Admin: 09/16/24 08:57 Dose: Not Given Sertraline HCl (Sertraline Hcl 50 Mg Tablet) 50 mg PO QAM TYRON Stop: 10/15/24 08:59 Last Admin: 09/16/24 08:51 Dose: 50 mg Trazodone HCl (Trazodone Hcl 50 Mg Tab) 50 mg PO HS TYRON Stop: 10/14/24 20:59 Last Admin: 09/15/24 20:08 Dose: 50 mg Vitamin D (Cholecalciferol 25 Mcg (1000 Units) Tab) 25 mcg PO DAILY TYRON Stop: 10/15/24 08:59 Last Admin: 09/16/24 08:51 Dose: 25 mcg (4) COPD (chronic obstructive pulmonary disease) COPD type: emphysema Emphysema type: unspecified Qualified Code(s): J43.9 - Emphysema, unspecified
[2024-09-16 12:17] VITALS: BP 121/52; TEMP 97.3; O2SAT 92
--- NOTE | 2024-09-16 15:09 | Discharge Summary ---
Date of Service September 16, 2024 Admission HPI Per Admitting Provider Patient is 88-year-old male with PMH COPD, GI bleed, HLD, bladder CA s/p TURBT, bradycardia, junctional rhythm, anxiety, depression presented to ER with c/o ongoing exertional SOB. 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 He feels increased SOB past 1.5 weeks and more frequent dizziness with feeling lightheaded with walking approximately 5 feet. Denies syncope. Patient reports sometimes while sitting will have episodes of left sided chest pain that he describes as sharp and lasts approximately 4 minutes and self resolves. He also reports will have episodes of feeling like "breath catches and can't take a deep breath." He is following with cardiology and EP. Per outpatient EP note he has history junctional rhythms and it was recommended patient have cardiac cath first to assess for obstructive CAD as cause of exertional SOB and holding on pacemaker as was not certain would alleviate patients symptoms. Yesterday he had cardiac cath and received SMITA to LAD and was started on aspirin and Plavix. He does not feel his symptoms are any worse today and reports feeling similar to how he felt prior to the cardiac cath. [facility] pul[facility], Dr Suárez. Reports cough for past 2 months sometimes productive clear phlegm. Was given Zithromax and medrol dose elo on 07/26/24. He states still has cough but doesn't feel is very productive now. Denies fever/chills. States has Advair but hasn't been using it as he reports read about interactions with other medications. Since urinary procedure for bladder CA he has urinary frequency and urgency. Denies dysuria. Denies fever/chills, diaphoresis, N/V/D/C, BURGESS, syncope, LOC, vision changes, neck pain, orthopnea, palpitations, hemoptysis, sore throat, choking, otalgia, rhinorrhea, abdominal pain, paresthesias, extremity weakness, extremity edema, rashes, hematuria. Cardiac cath on 09/13/[address] Cross. Multivessel vessel coronary artery disease -50% proximal, 90% mid LAD 40-50% calcified distal left main 40% proximal high OM1. 50% small AV groove circumflex after OM1 50% proximal RCA 2. Normal intracardiac filling pressure 3. Successful PCI of proximal to mid LAD with single drug-eluting stent (2.75 x 26 mm Devante; postdilated with 3.0 NC). 08/10/24 Zio patch: IMPRESSION: Patient had a min HR of 48 bpm, max HR of 188 bpm Sinus rhythm, average rate 72 beats per minute with frequent ventricular ectopy and couplets (20.6%). There were 14 episodes of complex ventricular ectopy of 4 to 5 beats in duration and 35 episodes of supra ventricular tachycardia longest 9.4 seconds in duration 09/06/24 Echo: Borderline diffuse LV hypokinesis, EF: 50-54%, grade 1 diastolic dysfunction, mild aortic valve sclerosis, mild TR, mild pulmonary hypertension Admission Exam Per Admitting Provider General: no distress, WDWN elderly male Head: normocephalic, atraumatic Eyes: conjunctiva non-injected, anicteric ENT: normal inspection external ears, nose, mucous membranes moist Neck: supple, trachea midline Lungs: diminished breath sounds, no respiratory distress, no wheezing/rhonchi/rales noted CV: bradycardia, rate 54, regular rhythm with ectopy, no pretibial edema Abd: normal BS, soft, non-tender Ext: no cyanosis, no calf tenderness Neuro: A&O x 3, no focal deficits noted, normal affect Skin: warm, dry Principal Diagnosis Shortness of breath secondary to COPD/ emphysema Discharge Exam General: no distress, WDWN elderly male Head: normocephalic, atraumatic Eyes: conjunctiva non-injected, anicteric ENT: normal inspection external ears, nose, mucous membranes moist Neck: supple Lungs: no respiratory distress, CTAB, no wheezing or rhonchi CV: regular Abd: normal BS, soft, non-tender Ext: no LE edema, moves extremities Neuro: A&O x 3, no focal deficits noted, normal affect Skin: warm, dry Discharge Data Allergies Allergy/AdvReac Type Severity Reaction Status Date / Time No Known Allergies Allergy Mild Unverified 09/13/24 11:14 Consultations 09/14/24 12:19 ED Decision to Admit Stat 09/14/24 13:49 Consult Cardiology Routine 09/15/24 14:54 Consult Pulmonology Routine Ordered Studies 09/14/24 11:08 CT angio chest PE protocol Stat FINDINGS: CTA: Cardiomegaly without pericardial effusion. Extensive coronary artery calcifications. The left heart structures are not opacified and therefore difficult to evaluate. Ectasia of the ascending thoracic aorta, 3.9 cm with moderate atherosclerosis. No pulmonary emboli. CT CHEST: Heterogeneous thyroid. No pathologically enlarged lymph nodes. Trace pleural effusions. Respiratory motion artifact limits the study. Severe pulmonary emphysema with biapical pleural-parenchymal scarring. Tracheobronchial secretions with bronchial wall thickening suggestive of bronchitis. Mild dependent bibasilar atelectasis. Irregular somewhat spiculated 7 mm subpleural solid nodule in the anterior left upper lobe on image 179 is new from prior. 4 mm fissural nodule left midlung on image 168 suggestive of a benign lymph node is unchanged. Partial distention with wall thickening of the stomach. Unremarkable soft tissues. No acute fracture. IMPRESSION: 1. No pulmonary emboli. 2. Severe emphysema with biapical pleural-parenchymal scarring. 3. Tracheobronchial secretions with bibasilar mucous plugging. 4. 7 mm irregular solid nodule of the subpleural left upper lobe is new from the prior study and favors scarring, however 6 month follow-up chest CT recommended. 5. No lymphadenopathy. Please refer to below summary of Fleischner criteria recommendations for follow- up of incidental CT nodules (Gail Dodge, Guidelines for management of small pulmonary nodules detected on CT scans: A statement from the Fleischner Society, Radiology 237: [id number].) SOLID NODULES Solitary nodule size: 6-8 mm * Low risk patients: follow-up at 6-12 months, then consider further follow-up at 18-24 months * high risk patients: initial follow-up CT at 6-12 months and then at 18-24 months if no change Note: newly detected indeterminate nodule in persons 35 years of age or older. * Low risk patients: minimal or absent history of smoking and/or other known risk factors * high risk patients: history of smoking or of other known risk factors (e.g. first degree relative with lung cancer, or exposure to asbestos, radon, uranium) * if a nodule up to 8 mm is partly solid or is ground glass further follow-up is required after 24 months to exclude possible slow growing adenocarcinoma (ADRIANA) Hospital Course (1) CASTILLO (dyspnea on exertion): (2) Elevated troponin: (3) Bradycardia: (4) COPD (chronic obstructive pulmonary disease): (5) HLD (hyperlipidemia): 88-year-old male with PMH COPD, GI bleed, HLD, bladder CA s/p TURBT, bradycardia, junctional rhythm, anxiety, depression presented to ER with c/o ongoing exertional SOB. #Exertional shortness of breath In ER afebrile, P: 41, R: 18, BP 134/81, 95% on room air No leukocytosis, Hgb: 13, troponin: 4961 Respiratory BioFire panel: Negative CXR: Emphysema without acute pneumonia. CTA chest: No pulmonary emboli. Severe emphysema with biapical pleural- parenchymal scarring. Tracheobronchial secretions with bibasilar mucous plugging. 7 mm irregular solid nodule of the subpleural left upper lobe is new from the prior study and favors scarring, however 6 month follow-up chest CT recommended. No lymphadenopathy. Etiology of exertional SOB and dizziness is not clear. Possible multifactorial. Initial thought was obstructive CAD however is s/p cardiac cath and stent to LAD yesterday, 09/13/24. ?arrhythmia. ?possible secondary to underlying COPD/mucous plugging Monitor on telemetry May need ambulatory pulse ox to see if Orthostatic vitals CBC, BMP, magnesium labs in am Cardiology, pulmonary med. consulted Per pulmonary med - Recommend budesonide and Perforomist or Brovana nebulized on discharge along with Spiriva or Incruse Recommend CT chest to be done in 3 months Complete the course of antibiotics for 5 days Given the endobronchial mucous, continue with flutter valve and Mucinex even at home Patient will ultimately benefit from pulmonary rehab but I think completing cardiac rehab first would be a good start #Elevated Troponin #CAD #S/P Cardiac cath and stent to LAD on 09/13/24 Troponin: troponin: 4961 -->[id number] Patient without CP Possible related to recent cardiac intervention yesterday Echo obtained Trend troponin Continue aspirin, Plavix, atorvastatin EKG in am Cardiology consulted 88 yo M s/p coronary intervention drug-eluting stent to the proximal mid left anterior Descending Echocardiogram without new findings. EKG with chronic ventricular ectopy, bigeminy mild breathlessness But no hypoxia at rest. Telemetry continues to demonstrate frequent ventricular ectopy and bigeminy but no profound bradycardia. Currently no indication for pacemaker. Patient appears clinically improved since hospitalization now ambulating in the hallway. No rest dyspnea. Would place referral for cardiac rehab #History bradycardia #History junctional rhythm on outpatient Zio monitor Monitor on telemetry cardiology involved, As above #Mucous Plugging #COPD Finished course of Zithromax, Medrol dose elo in early July 2024 Does not appear to be acute COPD exacerbation at this time CTA Chest: Tracheobronchial secretions with bibasilar mucous plugging Incentive spirometry, flutter valve Mucomyst, formoterol, budesonide, hypertonic saline nebs Pulmonology consulted - as above (pt Follows with [facility] pulmonology as outpt) Patient not using home Advair #Abnormal CT Chest: CT Chest: 7 mm irregular solid nodule of the subpleural left upper lobe is new from the prior study and favors scarring Will need 6 month follow-up chest CT #Bladder CA #BPH S/P TURBT 04/06/24 Continue home finasteride Pt with chronic urinary frequency and urgency since prior procedure. Will try condom cath while hospitalized recently had intravesical BCG therapy per patient, Follows with urology, Dr Beltrán. Urine culture negative empiric abx - rocephin given while inpt #Depression/Anxiety Continue home sertraline Total Time Total Time Spent Total Time Spent (In Minutes): 40 Discharge Plan Discharge Items Patient Disposition: Home - Self-Care Reason For Visit: SOB Discharge Diagnosis: Shortness of breath secondary to COPD/ emphysema Activity: Per Instructions section Non-emergency contact: Primary Care Provider, Transit Bus Driver and Drafter Refrigeration Call non-emergency contact if: you have any medication questions and your symptoms worsen Follow-up/Referrals: Ciro Zayas MD [Primary Care Provider] - (Date & Time 09/22/2024 10:40 AM Provider: Ciro Zayas MD General Internal Medicine [facility] ) Diet: Heart Healthy Addtl Attending Provider Instructions: Follow up with your primary care physician, handcrew foreman and pulmonary doctor. You were seen by pulmonary doctor and your inhalers were mostly changed to nebulizers. Use them as prescribed. Continue using guaifenesin and flutter valve. Also, as per cardiology - take aspirin and plavix daily. Take your medications as prescribed. Contact your physicians with any questions. Pending Studies at Discharge: No Stand-Alone Forms: My [employer], Smoking Cessation Medications and DC Order Prescriptions: New formoterol fumarate [Perforomist] 20 mcg/2 mL Solution For Nebulization 20 mcg NEB BIDR Qty: 60 0RF budesonide 0.5 mg/2 mL Suspension For Nebulization 0.5 mg NEB BIDR Qty: 60 0RF guaifenesin [Mucinex] 600 mg Tablet Extended Release 12hr 600 mg PO Q12 Qty: 60 0RF magnesium oxide 400 mg (241.3 mg magnesium) Tablet 400 mg PO QAM Qty: 10 0RF doxycycline hyclate 100 mg tablet 100 mg PO BID 5 Days Qty: 10 0RF albuterol sulfate 2.5 mg /3 mL (0.083 %) Solution For Nebulization 2.5 mg NEB Q6H PRN (Reason: shortness of breath or wheezing) Qty: 75 0RF Spiriva Respimat 1.25 mcg/actuation mist 2 puff inhalation DAILY Qty: 4 0RF Continued atorvastatin 40 mg tablet 40 mg PO HS cholecalciferol (vitamin D3) [Vitamin D3] 25 mcg (1,000 unit) Tablet 25 mcg PO DAILY sertraline 100 mg tablet 50 mg PO QAM pantoprazole 40 mg tablet,delayed release (DR/EC) 40 mg PO QAM albuterol sulfate 90 mcg/actuation HFA aerosol inhaler 2 puff INHALATION Q4H PRN (Reason: Shortness Of Breath Or Wheezing) Metamucil Packet 1 packet PO DAILY Rx Instructions: mix into at least 8 oz of water or juice before administering trazodone 50 mg tablet 50 mg PO HS fluoride (sodium) [PreviDent 5000 Booster Plus] 1.1 % paste 1 applic PO DAILY Rx Instructions: brush thoroughly once daily for 2 minutes, do not rince, spit out when done lorazepam [Ativan] 0.5 mg tablet 0.5 mg PO Q8H PRN (Reason: anxiety) Qty: 20 0RF famotidine 20 mg Tablet 20 mg PO HS nitroglycerin 0.4 mg Tablet, Sublingual 0.4 mg sublingual DIRECTED PRN (Reason: Chest Pain) finasteride 5 mg Tablet 5 mg PO DAILY aspirin 81 mg tablet,delayed release (DR/EC) 81 mg PO DAILY Qty: 90 3RF clopidogrel 75 mg tablet 75 mg PO DAILY Qty: 30 6RF Discontinued fluticasone propion-salmeterol 115-21 mcg/actuation Hfa Aerosol Inhaler 2 puff INHALATION BID Discharge Orders: Discharge Order (Routine); Ordered 09/16/24 Ordered By: Eliazar Sheth Admission Data Admit Date/Time: 09/14/24 12:59 Attending Provider: Eliazar Sheth Admit Provider: Theresa Arizmendi Primary Care Provider: Ciro Zayas Other Providers: Theresa Arizmendi; Usman Randolph
[2024-09-16 16:05] VITALS: PULSE 34
--- NOTE | 2024-09-16 22:21 | Electrocardiogram Report ---
Test Reason : Blood Pressure : */* mmHG Vent. Rate : 72 BPM Atrial Rate : 72 BPM P-R Int : 140 ms QRS Dur : 82 ms QT Int : 436 ms P-R-T Axes : -73 68 82 degrees QTcB Int : 477 ms Unusual P axis, possible ectopic atrial rhythm with frequent , and consecutive Premature ventricular complexes Nonspecific ST abnormality Abnormal ECG When compared with ECG of 15-Sep-2024 05:04, Premature ventricular complexes are now Present Confirmed by John aMnn ([id number]) on 09/16/2024 10:20:56 PM Referred By: REFERRED SELF Confirmed By: John Mann
== END 2024-09-16 17:45 | disposition home or self-care (01) | DRG 982 ==
LOC: ED 09:29 → SUATTDRO 12:59 → EDINP 12:59 → 2E 19:40

== ENCOUNTER 2024-10-16 14:57 | Inpatient (IN) ==
--- OUTSIDE RECORDS SUMMARY | 2024-10-16 15:04 | External Medical Summary | Summary of Care ---
Author Name Unknown Organization [facility] Address [address] [place] [address] Phone [phone] Care Team Providers Care Director Of Hemophilia Name Role Phone Ciro Zayas MD Primary Care Provider + Reason for Visit * Reason Comments Medical Nutrition Therapy Follow Up * Evaluate & Treat - Unlimited Visits (Within 10 days (routine)) - Authorized Specialty Diagnoses / Procedures Referred By Contac t Referred To Contact Dietitian / Nutrition Services Diagnoses Need for case management follow-up Ciro Zayas MD [address] [place] [address] Phone: tel: fax: Referral ID Status Reason Start Date Expiration Date Visits Requested Visits Authorized [id number] Authorized Specialty Services Required 09/06/[phone] Encounter Details Date Type Department Care Team (Latest Contact Info) Description 10/05/2024 10:00 AM EDT [facility] [address] [facility] [place] [address] Melia Corona RDN [address] [facility] [address] Malignant neoplasm of overlapping sites of bladder (HCC)*; Dietary counseling and surveillance; BMI less than 19,adult Allergies No known active allergiesdocumented as of this encounter (statuses as of 10/05/2024) Medications Cholecalciferol (VITAMIN D) 1000 UNIT Capsule 1 cap daily Activ e Atorvastatin Calcium 40 MG Oral Tablet (Lipitor)Indication s:Coronary atherosclerosis due to lipid rich plaque TAKE 1 TABLET BY MOUTH EVERY DAY 90 Tablet 3 10/23/19 24 Active Additional Information Patient taking differently: QHS, Reported on 09/22/2024 LORazepam 0.5 MG Oral Tablet (Ativan)Indications :JAN (generalized anxiety disorder) Take 1 Tablet by mouth every 8 hours as needed for Anxiety. 21 Tablet 01/14/20 24 Active Sertraline HCl 100 MG Oral Tablet (Zoloft) Take 0.5 Tablets by mouth in the morning. 03/10/20 24 Active traZODone HCl 50 MG Oral Tablet (Desyrel) Take 1 Tablet by mouth at bedtime. Active Psyllium 58.6 % Oral Packet (Metamucil) Take 1 Packet by mouth in the morning. 04/26/20 24 Active Pantoprazole Sodium 40 MG Oral Tablet Delayed Release (Protonix) Take 1 Tablet by mouth in the morning. 90 Tablet 1 06/20/20 24 Active Ventolin HFA 108 (90 Base) MCG/ACT Inhalation [...] minutes 25 Tablet 11 09/06/19 25 Active Aspirin 81 MG Oral Tablet Delayed Release (Aspirin 81) Take 1 Tablet by mouth in the morning. Active Vitamin K2 100 MCG Oral Tablet Take by mouth. Act gwendolyn Vitamin B-12 500 MCG Oral Lozenge Take 1,000 mcg by mouth in the morning. Active Turmeric Curcumin 500 MG Oral Capsule Take 1,000 mg by mouth in the morning. Active Albuterol Sulfate (2.5 MG/3ML) 0.083% Inhalation Nebulization Solution (Proventil) Inhale 1 Vial via nebulizer every 6 hours as needed for Wheezing. Active Formoterol Fumarate 20 MCG/2ML Inhalation Nebulization Solution Inhale 20 mcg via nebulizer in the morning and 20 mcg before bedtime. Active guaiFENesin ER 600 MG Oral Tablet Extended Release 12 Hour (Mucinex) Take 1 Tablet by mouth in the morning and 1 Tablet before bedtime. Active Magnesium Oxide -Mg Supplement 400 (240 Mg) MG Oral Tablet (Mag-Ox) Take 1 Tablet by mouth in the morning. Active Spiriva Respimat 1.25 MCG/ACT Inhalation Aerosol Solution (Tiotropium [place] Monohydrate) Inhale 2 Puffs by mouth in the morning. Active Clopidogrel Bisulfate 75 MG Oral Tablet (Plavix)Indications :Coronary artery disease involving [place] coronary artery of [place] heart without angina pectoris,S/P drug eluting coronary stent placement Take 1 Tablet by mouth in the morning. 09/23/19 Active Budesonide 0.5 MG/2ML Inhalation Suspension (Pulmicort) Inhale 0.5 mg via nebulizer in the morning and 0.5 mg before bedtime. 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 Diverticulitis of colon 07/10/2009 03/0 02/2011 Overview (09/24/2010): Have diverticular bleed in 2008 Dyslipidemia, goal LDL below 70 07/03/2009 05/27/2011 Overview (07/03/2009): Per Lipid Taxonomy. COPD, severity to be determined 01/10/2009 04/05/2012 Skin sensation disturbance 12/01/2008 0 03/05/2017 Mixed dyslipidemia 10/06/2008 9 Overview (07/03/2009): Per Lipid Taxonomy. Coronary atherosclerosis 10/06/2008 Overview (09/24/2010): No obstructive lesions in 2008 - had coronary cath documented as of this encounter (statuses as of 10/05/2024) Immunizations Name Administration Dates Next Due COVID-19 mRNA, LNP-s, No Pre serve, 2-Dose Series ([employer]) 10/23/2020,10/02/2020 Pneumococcal Conjugate Vacc, 13 Valent (Prevnar) [...] Answer Date Recorded PHQ Adult Total Score 10 09/19/2024 Hunger Vital Sign Answer Date Recorded Within [...] money to buy more. Never true 12/17/19 Within the past 12 months, t he [...] file Not on file Not on file [employer] Not on file Not on file Not on file documented as of this encounter Last Filed Vital Signs Vital Sign Reading Time Taken Comments Blood Pressure - - Pulse - - Temperature - - Respiratory Rate - - Oxygen Saturation - - Inhaled Oxygen Concentration - - Weight 54.8 kg (120 lb 14.4 oz) 025 10:28 AM EDT Height 170.2 cm (5' 7") 10/05/2024 10:2 8 AM EDT Body Mass Index 18.94 10/05/2024 10:28 AM EDT documented in this encounter Patient Instructions * Patient Instructions* Melia Corona RDN - 10/05/2024 10:33 AM EDT Patient will increase serving of whey protein powder to at least 2 servings daily at least 3 times a week. Patient will continue with current meal regimen. Be sure to include a lean source of protein at most meals and snacks such as cheese or PB or low-fat dip or hummus. documented in this encounter Progress Notes * Melia Corona RDN - 10/05/2024 10:05 AM EDT NUTRITION FOLLOW-UP NOTE - OUTPATIENT [facility] Name: Juan Vazquez Location: [facility] Date: 10/05/2024 Time: 10:06 AM Patient was identified by name and date. Patient was seen [id number] in the clinic. Reason for Nutrition Follow-up: Loss of weight, bladder cancer and poor appetite NUTRITION ASSESSMENT: Client History Patient is a 88 year old male being seen for above issues. States his BCG treatments were completedon 09/26/24 Support System: brother Barriers to Learning: Hard of hearing Special Education Needs: hearing aides Physical Activity: going up and down stairs, fatigue slightly improved per pt report. Is also receiving PT to work on pelvic floor exercises. Food/Nutrition-Related History Describes typical diet history/24 hr recall Breakfast: banana, toast with honey or PB, 1-2 cups decaf coffee with Stevia Snacks: crackers or potato chips, water Lunch: salad with plant-based oil, sometimes walnuts, avocado, Parmesan cheese, chicken salad sandwich on a whole-grain roll or Healthy Request chicken noodle and sandwich, water Snacks: sometimes whole-grain seeded toast with honey or PB Dinner: chicken breast, mashed potatoes, cauliflower/broccoli mix with vegan butter or eggplant Parmesan with sauce on side or spaghetti or breaded golden or lean ground beef, baked potato or sweet potato, same vegetable, tea with whey protein powder Snacks: Triscuit crackers with PB or cheese or black grapes Drinks: water, 2 cups decaf in AM-64 ounces daily Restaurant meals: every 1-2 weeks Alcohol: None Tobacco Use: No Drug Use: No Food and Nutrient Intake and other pertinent information: Patient reports he is eating a little better. He notes still having some fatigue, reflux, and diarrhea. He notes less SOB since stent placement and use of nebulizers. He continues to avoid sweets and expresses concern of saturated fats in his diet. States he has included occasional servings of cheese in his diet. Medications Changes/Updates: addition of nebulizers, and just started taking Miralax. Nutrition-Focused Physical Findings Overall appearance: thin Digestive system: Appetite: good, Diarrhea Nerves and cognition: Awake, alert and Oriented Anthropometric Measurements Current Weight: Wt Readings from Last 1 Encounters: 10/05/24 54.8 kg (120 lb 14.4 oz) Wt Readings from Last 4 Encounters: 10/05/24 54.8 kg (120 lb 14.4 oz) 09/22/24 53.6 kg (118 lb 1.6 oz) 09/06/24 55 kg (121 lb 3.2 oz) 08/10/24 53.8 kg (118 lb 11.2 oz) Weight Change: stable BMI Readings from Last 1 Encounters: 10/05/24 18.94 kg/m Biochemical Data, Medical Tests, and Procedures Latest Reference Range & Units 09/22/24 11:36 WBC 4.00 - 10.80 K/uL 6.82 RBC 4.50 - 5.25 M/uL 3.96 HGB 14.0 - 16.8 g/dL 11.8 (L) HCT 40.0 - 48.4 % 36.1 (L) MCV 82.0 - 99.5 fL 91.2 MCH 27.0 - 34.0 pg 29.8 MCHC 32.0 - 36.0 g/dL 32.7 RDW 11.5 - 15.5 % 14.1 PLT 140 - 400 K/uL 237 MPV 6.6 - 11.1 fL 9.4 (L): Data is abnormally low Latest Reference Range & Units 09/22/24 11:36 SODIUM 135 - 146 mmol/L 139 POTASSIUM 3.5 - 5.1 mmol/L 4.1 CHLORIDE 98 - 107 mmol/L 104 CO2 22 - 32 mmol/L 25 BUN 6 - 20 mg/dL 22 (H) CREATININE 0.6 - 1.2 mg/dL 0.9 EGFR >=60 mL/min 83 ANION GAP 7 - 15 mmol/L 10 GLUCOSE 70 - 120 mg/dL 88 CALCIUM 8.4 - 10.2 mg/dL 9.0 Protein 6.0 - 8.3 g/dL 6.5 (H): Data is abnormally high Above levels reviewed Previous Nutrition Diagnosis: Suboptimal oral intake related to lack of appetite and increased nutritional needs for protein and energy as evidenced by pt report and weight loss of 10 lbs in past 6 months per pt report Progress towards goals: Patient will add a lean high-protein food to most meals-eggs or white poultry meat without the skin. MET Using some whey protein and including cheese Patient will try a high-protein powder without sugar and add to smoothies or shakes. MET Patient will allow one day of dietary indiscretion-try a burger or pasta or a dairy food. MET CURRENT NUTRITION DIAGNOSIS Underweight related to decreased energy intake compared to estimated needs as evidenced by diet recall and Body mass index is 18.94 kg/m. NUTRITION INTERVENTION: NUTRITION EDUCATION Initial/brief nutrition education NUTRITION COUNSELING Strategies Nutrition Prescription: Diet: Good Nutrition High calorie/High protein Daily Calorie Needs: 5928-4674 Kcals Daily Protein Needs: 75-80 Grams protein Current Goals: Patient will increase serving of whey protein powder to at least 2 servings daily at least 3 times a week. Patient will continue with current meal regimen. Be sure to include a lean source of protein at most meals and snacks such as cheese or PB or low-fat dip or hummus. Dietitian Action: Encouraged pt to continue with current meal regimen. Encouraged him to increase servings of whey protein powder to 2 servings daily a few times a week. Also, encouraged him to try ahigh-protein, low-CHO shake as part of his meal regimen-suggestion provided. Again, encouraged him to include other healthy, low-fat options with foods he is already eating-suggestions provided. Recommendations to Ordering Provider: Continue current plan of nutrition care. NUTRITION MONITORING AND EVALUATION: The following will be monitored and evaluated at the next visit: Monitor weight. Monitor goals and progress. Plan: Patient scheduled to return in 6 months; Encouraged pt to contact me via My G if any questions or concerns arise. 30 minutes Medical Nutrition Therapy Time In: 1005 (10/05/24 1005) Time Out: 1039 (10/05/24 1039) 15 min (8-22 min) 30 min (23-37 min) 45 min (38-52 min) 60 min (53-67 min) 75 min (68-82 min) 90 min (83-97 min) 105 min (98-113 min) Melia Corona RDN [facility] documented in this encounter Plan of Treatment Upcoming Encounters Date Type Department Care Team (Late st Contact Info) Description 10/24/2024 9:00 AM EDT Office Visit Gastroenterology, [facility] [address] [place] [phone] Divya Maciel CRNP [address] [place] [address] 10/28/2024 10:30 AM EDT Office Visit Cardiology, [facility] [address] [place] [address] Divya Haskins CRNP [address] [facility] [place] [address] 10/28/2024 11:30 AM EDT Imaging Vascular Lab, [facility] 2nd [facility] [address] [place] [phone] 11/01/2024 10:00 AM EDT Imaging Radiology [facility] 1st [facility] [address] [place] [phone] Prep, [address] [place] [address] 11/02/2024 10:10 AM EDT Office [facility] [place] [phone] Francisco Jackson MD [address] [place] [address] 11/19/2024 9:00 AM EDT Office Visit Family Practice [facility] 132 [facility] [place] [address] Ciro Zayas MD [address] [place] [address] 12/05/2024 11:00 AM EDT Office Visit Dermatology [facility] [address] [place], [place] [address] Ciro Jesus MD [address] [place] [address] 12/07/2024 2:45 PM EDT Procedure Only Urology, [facility] 132 [facility] [place] [phone] Francisco Beltrán MD [address] [place] [address] 01/13/2025 9:30 AM EDT Office Visit Cardiology, [facility] 132 [facility] [place] [address] Divya Haskins CRNP [address] [facility] [place] [address] 04/07/2025 9:30 AM EDT Nutrition Services Nutrition, [facility] [address] [facility] [place] [address] Melia Corona RDN 132 [facility] [place] [address] 08/10/2025 10:00 AM EST Office Visit [facility] [phone] Jerad Connelly CRNP [address] [facility], [place] [address] Scheduled Referrals Name Type Priority Associated Diagnoses Orde r Schedule NUTRITION-CLINICAL DIETITIAN REFERRAL OP Referral Within 10 days (routine) Need for case management follow-up Ordered: 09/06/2024 Health Maintenance Due Date Last Done Comments Zoster Vaccines (1 of 2) 12/22/1987 DTap/Tdap Vaccines (1 - Tdap) 12/27/2009 12/26/2009, 12/26/2009 *ADVANCE DIRECTIVE NOT ON FILE 02/02/2022 Adult Wellness Visit 07/03/2022 07/03/2021 COVID-19 Vaccine (3 - season) 2024 10/23/2020, 10/02/2020 Influenza Vaccine (FLU shot) (#1) 2024 *BISPHONATE OR OTHER ACCEPTABLE MEDICATION NEEDED FOR OSTEOPOROSIS (REFER TO SMARTSET #1146) 08/12/2024 O2 ASSESSMENT COMPLETED IN PAST YEAR FOR COPD 04/06/2025 04/06/2024 Depression Monitoring 09/19/2025 09/19/2024 DXA Scan 06/13/2026 06/13/2024, 05/21, 06/10/2022, Additional history exists Pneumococcal Vaccine: 50+ Years Completed 08/30/2014, 12/26/2009 Alpha-1 Antitrypsin Completed 08/20/2021 VITAMIN D LEVEL ONCE IN A LIFETIME-USE SMARTSET# 02416 Completed 04/13/2024, 07/16/2023, 05/27/2021, Additional history exists [...] as of this encounter Visit Diagnoses Diagnosis Malignant neoplasm of overlapping sites of bladder (HCC)- Primary Malignant neoplasm of other specified sites of bladder Dietary counseling and surveillance Dietary surveillance and counseling BMI less than 19,adult Body Mass Index less than 19, adult documented in this encounter Advance Directives * [...] Discussed due to patient's condition Care Teams Director Of Hemophilia Relationship Specialty Start Date End Date Ciro Zayas MD [address] [facility] [place] [address] PCP - General Internal Medicine 09/20/10 documented as of this encounter
--- OUTSIDE RECORDS SUMMARY | 2024-10-16 15:04 | External Medical Summary | Summary of Care ---
Author Name Unknown Organization [facility] Address [address] [place] [address] Phone [phone] Care Team Providers Care Optics Engineer Name Role Phone Ciro Zayas MD Primary Care Provider + Reason for Referral * Evaluate & Treat - Unlimited Visits (Within 10 days (routine)) - Authorized Specialty Diagnoses / Procedures Referred By Miguel clinton Referred To Contact Gastroenterology Diagnoses Decreased hemoglobin Need for case management follow-up Alternating constipation and diarrhea Ciro Zayas MD [address] [place] [address] [place] [address] Phone: tel: fax: Case, Armani Desir, DO [address] [place] [address] Phone: tel: fax: Referral ID Status Reason Start Date Expiration Date Visits Requested Visits Authorized [id number] Authorized Specialty Services Required 10/04/[phone] Question Answer Referral Priority Within 10 days (routine) [facility] For what condition is the patient being referred? Second Opinion Encounter Details Date Type Department Care Team (Late st Contact Info) Description 09/23/2024 Orders Only Laboratory [place] [address] [place] [phone] Ciro Zayas MD [address] [facility] [place] [address] Need for case management follow-up*; Decreased hemoglobin; Alternating constipation and diarrhea Allergies No known active allergiesdocumented as of this encounter (statuses as of 10/04/2024) Medications Cholecalciferol (VITAMIN D) 1000 UNIT Capsule [...] Respimat 1.25 MCG/ACT Inhalation Aerosol Solution (Tiotropium [place] Monohydrate) Inhale 2 Puffs by mouth in the morning. Active Clopidogrel Bisulfate 75 MG Oral Tablet (Plavix)Indications :Coronary artery disease involving [place] coronary artery of [place] heart without angina pectoris,S/P drug eluting coronary stent placement Take 1 Tablet by mouth in the morning. 09/23/19 Active documented as of this encounter (statuses as of 10/04/2024) Active Problems Problem Noted Date Diagnosed Date [...] osteoporosis 12/24/2018 Coronary artery disease invo lving [place] coronary artery of [place] heart without angina pectoris 05/19/2018 History of [...] as of this encounter (statuses as of 10/04/2024) Resolved Problems Problem Noted Date Diagnosed Date [...] patient declined. Diverticulitis of colon 07/10/2009 0302/2011 Overview (09/24/2010): Have diverticular bleed in 2008 Dyslipidemia, goal LDL below 70 07/03/2009 05/27/2011 Overview (07/03/2009): Per Lipid Taxonomy. COPD, severity to be determined 01/10/2009 04/05/2012 Skin sensation disturbance 12/01/2008 0 03/05/2017 Mixed dyslipidemia 10/06/2008 9 Overview (07/03/2009): Per Lipid Taxonomy. Coronary atherosclerosis 10/06/2008 Overview (09/24/2010): No obstructive lesions in 2008 - had coronary cath documented as of this encounter (statuses as of 10/04/2024) Immunizations Name Administration Dates Next Due COVID-19 mRNA, LNP-s, No Pre serve, 2-Dose Series ([employer]) 10/23/2020,10/02/2020 Pneumococcal Conjugate Vacc, 13 Valent (Prevnar) [...] file Not on file Not on file [employer] Not on file Not on file Not on file documented as of this encounter Plan of Treatment Upcoming Encounters Date Type Department Care Team (Late st Contact Info) Description 10/05/2024 10:00 AM EDT Nutrition Services Nutrition, [facility] [address] [place] [address] Melia Corona RDN [address] [place] [address] 10/24/2024 9:00 AM EDT Office Visit Gastroenterology, [facility] [address] [place] [phone] Divya Maciel CRNP [address] [place] [address] 10/28/2024 10:30 AM EDT Office Visit Cardiology, [facility] [address] [place] [address] Divya Haskins CRNP [address] [place] [address] [place] [address] 10/28/2024 11:30 AM EDT Imaging Vascular Lab, [facility] II 2nd Floor, [place] [address] [place] [phone] 11/01/2024 10:00 AM EDT Imaging Radiology [facility] 1st Floor, [place] [address] [place] [phone] Prep, [address] [place] [address] 11/02/2024 10:10 AM EDT Office Visit Vascular Surgery, [facility] 132 [facility] [place] [phone] Francisco Jackson MD [address] [place] [address] 11/19/2024 9:00 AM EDT Office Visit Family Practice [facility] [place] [address] Ciro Zayas MD 200 [place] [address] 12/05/2024 11:00 AM EDT Office Visit Dermatology [facility] 200 [facility] [place] [address] Ciro Jesus MD [address] [facility] [place] [address] 12/07/2024 2:45 PM EDT Procedure Only Urology, [facility] [address] [facility] [place] [address] Francisco Beltrán MD [address] [facility] [place] [id number] 01/13/2025 9:30 AM EDT Office Visit Cardiology, [facility] [address] [facility] [place] [address] Divya Haskins CRNP 400 [facility] [place] [address] 08/10/2025 10:00 AM EST Office Visit Rheumatology [facility] [place] [phone] Jerad Connelly CRNP [address] [place] [address] [place] [address] Scheduled Orders Name Type Priority Associated Diagnoses Orde r Schedule CBC WITH WBC DIFFERENTIAL Lab Routine Decreased hemoglobin Expected: 10/24/2024 (Approximate), Expires: 09/23/2025 Scheduled Referrals Name Type Priority Associated Diagnoses Orde r Schedule ADULT GASTROENTEROLOGY REFERRAL OP Referral Within 10 days (routine) Decreased hemoglobin Need for case management follow-up Alternating constipation and diarrhea Ordered: 10/04/2024 Health Maintenance Due Date Last Done Comments [...] D LEVEL ONCE IN A LIFETIME-USE SMARTSET# [id number] Completed 04/13/2024, 07/16/2023, 05/27/2021, Additional history exists [...] as of this encounter Visit Diagnoses Diagnosis Need for case management follow-up- Primary Decreased hemoglobin Anemia, unspecified Alternating constipation and diarrhea Other symptoms involving digestive system documented in this encounter Advance Directives * [...] Question Answer Comments Discussion of Advance Direct linsday occurred with: Not Discussed due to patient's condition Care Teams Optics Engineer Relationship Specialty Start Date End Date Ciro Zayas MD [address] [place] [place], [place] [address] PCP - General Internal Medicine 09/20/10 documented as of this encounter
--- OUTSIDE RECORDS SUMMARY | 2024-10-16 15:04 | External Medical Summary | Summary of Care ---
Author Name Unknown Organization [facility] Address [address] [place] [facility] [place] [address] Phone [phone] Care Team Providers Care Learning Designer Name Role Phone Ciro Zayas MD Primary Care Provider + Encounter Details Date Type Department Care Team (Late st Contact Info) Description 10/13/2024 Telephone Gastroenterology, [facility] [address] [place] [address] RaheemDivya vaughan CRNP [address] [place] [address] Allergies No known active allergiesdocumented as of this encounter (statuses as of 10/13/2024) Medications Cholecalciferol (VITAMIN D) 1000 UNIT Capsule [...] Respimat 1.25 MCG/ACT Inhalation Aerosol Solution (Tiotropium [place] Monohydrate) Inhale 2 Puffs by mouth in the morning. Active Clopidogrel Bisulfate 75 MG Oral Tablet (Plavix)Indications :Coronary artery disease involving [place] coronary artery of [place] heart without angina pectoris,S/P drug eluting coronary stent placement Take 1 Tablet by mouth in the morning. 09/23/19 Active Budesonide 0.5 MG/2ML Inhalation Suspension (Pulmicort) Inhale 0.5 mg via nebulizer in the morning and 0.5 mg before bedtime. Active documented as of this encounter (statuses as of 10/13/2024) Active Problems Problem Noted Date Diagnosed Date [...] osteoporosis 12/24/2018 Coronary artery disease invo lving [place] coronary artery of [place] heart without angina pectoris 05/19/2018 History of [...] as of this encounter (statuses as of 10/13/2024) Resolved Problems Problem Noted Date Diagnosed Date [...] 03/23/2015 06/02/2017 Overview (03/23/2015): right pre-auricular ear 11/26 Gout 05/31/2013 03/10/2018 [...] as of this encounter (statuses as of 10/13/2024) Immunizations Name Administration Dates Next Due COVID-19 [...] file Not on file Not on file [facility] Not on file Not on file Not on file documented as of this encounter Miscellaneous Notes * Telephone Encounter - Divya Maciel CRNP - 10/13/2024 8:29 AM EDT Received a tiger text from patient's pelvic physical therapist from [facility]. Had concerns regarding a strong pulse in the patient's abdomen while she was performing abdominal/colon massage. Pulse varied from very strong to very weak. Patient does carry a history of an aortic aneurysm, most recent CTAP dated 08/12/2024 showed a measurement of 3.1 cm. Similar measurement noted on CTAP dated 03/14/2022 (2.9 cm). KENDALL Zayas. documented in this encounter Plan of Treatment Upcoming Encounters Date Type Department Care Team (Late st Contact Info) Description 10/24/2024 9:00 AM EDT Office Visit Gastroenterology, [facility] [address] [place] [phone] Divya Maciel CRNP [address] [place] [address] 10/28/2024 10:30 AM EDT Office Visit Cardiology, [facility] [address] [place] [phone] Divya Haskins CRNP [address] [facility] [place] [address] 10/28/2024 11:30 AM EDT Imaging Vascular Lab, [facility] [place] [address] [place] [phone] 11/01/2024 10:00 AM EDT Imaging Radiology [facility] [place] [address] [place] [phone] Prep, [address] [place] [address] 11/02/2024 10:10 AM EDT Office Visit Vascular Surgery, [facility] [address] [place] [phone] Francisco Jackson MD [address] [place] [address] 11/19/2024 9:00 AM EDT Office Visit Family Practice [facility] [address] [place] [address] Ciro Zayas MD [address] [facility] [place] [address] 12/05/2024 11:00 AM EDT Office Visit Dermatology [facility] [place] [address] [facility] [place] [address] Ciro Jesus MD [address] [facility] [place] [address] 12/07/2024 2:45 PM EDT Procedure Only Urology, [facility] [address] [place] [phone] Francisco Beltrán MD [address] [facility] [place] [address] 01/13/2025 9:30 AM EDT Office Visit Cardiology, [facility] [address] [place] [phone] Divya Haskins CRNP [address] [facility] [place] [address] 04/07/2025 9:30 AM EDT Nutrition Services Nutrition, [facility] [address] [place] [address] Melia Corona RDN [address] [place] [address] 08/10/2025 10:00 AM EST Office Visit Rheumatology [facility] [address] [place] [phone] Jerad Connelly CRNP [address] [facility] [place] [address] Health Maintenance Due Date Last Done Comments [...] D LEVEL ONCE IN A LIFETIME-USE SMARTSET# [id number] Completed 04/13/2024, 07/16/2023, 05/27/2021, Additional history exists [...] Discussed due to patient's condition Care Teams Learning Designer Relationship Specialty Start Date End Date Ciro Zayas MD [address] [place] [address] PCP - General Internal Medicine 09/20/10 documented as of this encounter
--- NOTE | 2024-10-16 15:35 | Emergency Department Note ---
Impression & Plan Chest pain, Anemia, SOB (shortness of breath) ED Provider Note NAME: MAGNUS HEATH AGE: 88 SEX: M : 1935 ARRIVES VIA: Walk-In INFORMANT: Patient, ED PROVIDER(S): Alexx Bailon DO CHIEF COMPLAINT: Palpitations HPI: The patient is a an 88-year-old male who has a history of COPD who presented to the emergency department with dizziness near syncope and shortness of breath with exertion. The patient states he was recently in our facility. He was admitted and had a heart catheterization. He did have a stent placed. The patient states he is had no chest pain but has been noticing shortness of breath with exertion. He denies having any black or bloody stools. He has been noticing that his breathing is not as good as it usually is. He has been using his nebulizer with only minimal relief. ROS: See above HPI for pertinent positives & negatives. A total of 10 systems reviewed and were otherwise negative. PAST MEDICAL HISTORY: See Below PAST SURGICAL HISTORY: See Below FAMILY HISTORY: See Below SOCIAL HISTORY: See Below HOME MEDICATIONS: See Below ALLERGIES: See Below VITALS: See Below PHYSICAL EXAMINATION: GENERAL: Patient is awake alert in no acute distress patient is resting comfortably and showing no signs of anxiety EYES: The conjunctivae are clear. The pupils are round and reactive. EARS, NOSE, MOUTH AND THROAT: The nose is without any evidence of any deformity. NECK: The neck is nontender and supple. RESPIRATORY: Diminished breath sounds are noted throughout. There were scattered rhonchi. There is mild conversational dyspnea noted. CARDIOVASCULAR: Ectopy was noted auscultation. There is no definite murmur. GASTROINTESTINAL: The abdomen is soft. Abdomen is nontender. MUSCULOSKELETAL/EXTREMITIES: There is no evidence of gross deformity full range of motion is noted in the hips and shoulders. SKIN: trace pedal edema was noted bilaterally. Skin was warm and dry. NEUROLOGIC: Patient is awake alert and oriented x3. Strength is symmetric. There is no facial droop. MEDICAL DECISION MAKING: The patient is an 88-year-old male who presented to the emergency department for an evaluation of dyspnea on exertion. The patient has a history of COPD. He did have some abnormal lung sounds. The patient was recently in our facility. He had a cardiac catheterization and did receive a stent. He does complain of some chest pain which is intermittent. I discussed the patient's laboratory and radiographic studies with him. On the cardiac exercise specialist he was having episodes of ectopic atrial rhythm with frequent PVCs. Vital signs were reassuring but when the patient would exert himself he became very short of breath. He was found to have anemia which could be secondary to his cardiac catheterization. He reports no signs of rectal bleeding. Given his findings as well as his presentation I discussed his condition with the on-call [facility] hospitalist group. Triage Nursing notes reviewed. Prior medical records reviewed Vital Signs: reviewed and remarkable for no significant abnormalities Differential diagnosis: Reactive airway disease, pneumonia, pneumothorax, COPD, CHF, infections, cardiac ischemia, pulmonary embolism, musculoskeletal, gastrointestinal, as well as other pathologies. ER treatment provided: See below Diagnostics interpreted by me: ECG: EKG was obtained in the emergency department. My interpretation is underlying ectopic atrial rhythm at 64 bpm. Frequent PVCs were noted. There were no acute ST segment elevations noted. This was compared to a tracing from September 08, 2024. No changes were noted. Cardiac Monitoring: An order was placed for continuous cardiac monitoring. The monitor shows a rate of 78 bpm with sinus rhythm. Frequent PVCs were noted. Laboratory studies: As stated above and show below. Imaging studies: See below. Radiographic imaging was reviewed by myself Consultation(s): [None] Past Med/Surg History Problem List (Updated 10/16/24 @ 17:04 by Alexx Bailon DO) SOB (shortness of breath) (Acute) Chest pain (Acute) Ex-smoker Abnormal chest CT Pulmonary nodule COPD with emphysema Ventricular ectopy CAD (coronary artery disease) Elevated troponin (Acute) Bradycardia (Acute) [place]O (dyspnea on exertion) (Acute) Upper GI bleed Acute blood loss anemia Melena (Acute) Anemia (Acute) HLD (hyperlipidemia) COPD (chronic obstructive pulmonary disease) Medical History Dizziness Surgical History Hx of cystoscopy History of cardiac catheterization 09/13/24. Dr Cross History of esophagogastroduodenoscopy (EGD) History of colonoscopy Family History Mother Lung cancer Father Coronary heart disease Social History Smoking Status: Never smoker Tobacco Type: Cigarettes Cigarettes Per Day: 20; Second Hand Exposure: Yes; Do You Dip or Chew Tobacco: No; Hx Alcohol Use: No Hx Substance Use: No Preferred Language: Greenlandic Communication Ability: Effective Cloth Washer Back Tender Required: No Beliefs That Will Affect Care: None marital status: Current Living Situation: Family Current Living Situation Comment: lives with brother Feels Safe at Home: Yes Assistive Devices: Walker Allergies Allergies Allergy/AdvReac Type Severity Reaction Status Date / Time No Known Allergies Allergy Mild Unverified 09/13/24 11:14 Home Meds Home Medications Medication Instructions Recorded Confirmed atorvastatin 40 mg tablet 40 mg PO HS 12/27/19 09/14/24 cholecalciferol (vitamin D3) 25 25 mcg PO DAILY 12/27/19 09/14/24 mcg (1,000 unit) tablet (Vitamin D3) fluoride (sodium) 1.1 % dental 1 applic PO DAILY 12/03/23 09/14/24 paste (PreviDent 5000 Booster Plus) trazodone 50 mg tablet 50 mg PO HS Insomnia 12/03/23 09/14/24 pantoprazole 40 mg tablet,delayed 40 mg PO QAM 04/08/24 09/14/24 release sertraline 100 mg tablet 50 mg PO QAM 04/08/24 09/14/24 famotidine 20 mg tablet 20 mg PO HS 09/13/24 09/14/24 finasteride 5 mg tablet 5 mg PO DAILY 09/13/24 09/14/24 nitroglycerin 0.4 mg sublingual 0.4 mg sublingual DIRECTED PRN 09/13/24 09/14/24 tablet Chest Pain albuterol sulfate 90 mcg/actuation 2 puff inhalation Q4H PRN 09/14/24 09/14/24 aerosol inhaler Shortness Of Breath Or Wheezing psyllium 1 packet PO DAILY 09/14/24 09/14/24 Previous Rx's Medication Instructions Recorded lorazepam 0.5 mg tablet (Ativan) 0.5 mg PO Q8H PRN anxiety #20 tabs 12/17/23 aspirin 81 mg tablet,delayed 81 mg PO DAILY #90 tabs 09/13/24 release clopidogrel 75 mg tablet 75 mg PO DAILY #30 tabs 09/13/24 albuterol sulfate 2.5 mg/3 mL 2.5 mg (3 mL) NEB Q6H PRN 09/16/24 (0.083 %) solution for nebulization shortness of breath or wheezing #75 mL guaifenesin 600 mg tablet, 600 mg PO Q12 #60 tabs 09/16/24 extended release 12 hr (Mucinex) magnesium oxide 400 mg (241.3 mg 400 mg PO QAM #10 tabs 09/16/24 magnesium) tablet arformoterol 15 mcg/2 mL solution 2 ml inhalation DAILY #60 mL 10/11/24 for nebulization (Brovana) budesonide 0.5 mg/2 mL suspension 0.5 mg (2 mL) NEB BIDR #60 mL 10/11/24 for nebulization tiotropium bromide 1.25 2 puff inhalation DAILY #4 grams 10/11/24 mcg/actuation mist for inhalation (Spiriva Respimat) Results & Data (ED) Vital Signs Vital Signs - 24 hr 10/16/24 15:02 10/16/24 16:11 Temperature 36.8 C Temperature Source Temporal Artery Scan Pulse Rate 79 78 Pulse Rhythm Regular Respiratory Rate 20 Respiratory Effort / Characteristics Non-Labored Spontaneous Respiratory Depth Normal Respiratory Pattern Regular Blood Pressure 118/70 Blood Pressure Mean 86 Blood Pressure Position Sitting Pulse Oximetry 100 Oxygen Delivery Method Room Air Sepsis Recent Fever Within 48 Hours No Sepsis New/Unexplained Change in Mental Status No Sepsis Action Taken by Nursing No Action Required Home Medications Current Medication List: was personally reviewed by me Laboratory Data Attestation: I reviewed the patient's lab results. 10/16/24 15:20 10/16/24 15:20 Lab Results 10/16/24 Range/Units 15:20 WBC 6.84 (4.8-10.8) K/ul RBC 3.50 L (4.70-6.10) M/uL Hgb 9.9 L (14.0-18.0) g/dl Hct 30.6 L (42.0-52.0) % MCV 87.4 (80.0-100.0) fL MCH 28.3 (25.0-34.0) pg MCHC 32.4 (32.0-36.0) g/dL RDW Std Deviation 42.1 (36.4-46.3) fL RDW Coeff of Ingrid 13.2 (11.5-14.5) % Plt Count 220 (130-400) K/uL MPV 9.9 (9.4-12.4) fL Immature Gran % (Auto) 0.1 % Neut % (Auto) 72.5 % Lymph % (Auto) 14.5 % [place] % (Auto) 10.5 % Eos % (Auto) 1.5 % Baso % (Auto) 0.9 % Neut # (Auto) 4.96 (1.40-6.50) K/uL Lymph # (Auto) 0.99 L (1.20-3.40) K/uL [place] # (Auto) 0.72 H (0.11-0.59) K/uL Eos # (Auto) 0.10 (0.00-0.50) K/uL Baso # (Auto) 0.06 (0.00-0.20) K/uL Immature Gran # (Auto) 0.01 (0.01-0.20) K/uL PT 11.0 (9.0-12.0) Seconds INR 1.0 (0.9-1.1) APTT 25 (21-31) Seconds PTT Ratio 0.9 Sodium 138 (136-145) mmol/L Potassium 4.4 (3.5-5.1) mmol/L Chloride 106 (98-107) mmol/L Carbon Dioxide 26 (21-32) mmol/L Anion Gap 6 (3-11) BUN 25 H (6-23) mg/dl Creatinine 1.02 (0.6-1.4) mg/dl Est Cr Clr Drug Dosing Not Reportable eGFR 71.58 BUN/Creatinine Ratio 24.5 H (10-20) Glucose 105 H (70-99(Fasting)) mg/dl Calcium 8.8 (8.6-10.3) mg/dl Magnesium 2.2 (1.7-2.4) mg/dl Total Bilirubin 0.4 (0.2-1.0) mg/dl AST 24 (13-39) U/L ALT 18 (7-52) U/L Alkaline Phosphatase 63 (34-104) U/L Troponin I High Sens 5.4 (0-20) pg/ml Total Protein 7.3 (6.0-8.3) gm/dl Albumin 4.4 (3.4-5.0) gm/dl Globulin 2.9 (2.5-4.0) gm/dl Albumin/Globulin Ratio 1.5 (0.9-2) TSH 1.743 (0.300-4.500) uIu/ml Administered Medications Discontinued Medications Albuterol (Albut/Ipratrop 3mg/0.5mg Neb 3 Ml Vial) 3 ml NEB NOW STA; Protocol Stop: 10/16/24 15:37 Last Admin: 10/16/24 15:45 Dose: 3 ml Documented By: Bessy Imaging Data Attestation: I personally reviewed and interpreted this imaging study as follows: My Impression: 1 view chest x-ray was obtained in the emergency department. My interpretation is no free air or definite infiltrate, final report below. Radiologist's Impression: Chest X-Ray 10/16/24 15:19 INDICATION: Chest pain. TECHNIQUE: Frontal radiograph of the chest. COMPARISON: Radiograph from 09/14/2024. FINDINGS: Mild cardiomegaly. Pulmonary vasculature appear within normal limits. Chronic appearing interstitial lung markings. No infiltrate, pleural effusion or pneumothorax. No acute osseous abnormality evident. IMPRESSION: No acute cardiopulmonary process. Electronically signed by Todd Hernandez 10-16-2024 3:44 PM Discharge Plan Visit Data Chief Complaint: Syncope (Near Syncope) Stated Complaint: FELT FAINT/ALMOST PASSED OUT ED Provider: Alexx Bailon Discharge Problem: Chest pain, Anemia, SOB (shortness of breath) Patient Disposition: Being Evaluated by Hospitalist Forms Stand Alone Forms: My [facility] Prescriptions Prescriptions: No Action arformoterol [Brovana] 15 mcg/2 mL solution for nebulization 2 ml inhalation DAILY Qty: 60 3RF budesonide 0.5 mg/2 mL suspension for nebulization 0.5 mg NEB BIDR Qty: 60 3RF Spiriva Respimat 1.25 mcg/actuation mist 2 puff inhalation DAILY Qty: 4 3RF atorvastatin 40 mg tablet 40 mg PO HS cholecalciferol (vitamin D3) [Vitamin D3] 25 mcg (1,000 unit) Tablet 25 mcg PO DAILY sertraline 100 mg tablet 50 mg PO QAM pantoprazole 40 mg tablet,delayed release (DR/EC) 40 mg PO QAM albuterol sulfate 90 mcg/actuation HFA aerosol inhaler 2 puff INHALATION Q4H PRN (Reason: Shortness Of Breath Or Wheezing) psyllium Packet 1 packet PO DAILY Rx Instructions: mix into at least 8 oz of water or juice before administering guaifenesin [Mucinex] 600 mg Tablet Extended Release 12hr 600 mg PO Q12 Qty: 60 0RF magnesium oxide 400 mg (241.3 mg magnesium) Tablet 400 mg PO QAM Qty: 10 0RF albuterol sulfate 2.5 mg /3 mL (0.083 %) Solution For Nebulization 2.5 mg NEB Q6H PRN (Reason: shortness of breath or wheezing) Qty: 75 0RF trazodone 50 mg tablet 50 mg PO HS fluoride (sodium) [PreviDent 5000 Booster Plus] 1.1 % paste 1 applic PO DAILY Rx Instructions: brush thoroughly once daily for 2 minutes, do not rince, spit out when done lorazepam [Ativan] 0.5 mg tablet 0.5 mg PO Q8H PRN (Reason: anxiety) Qty: 20 0RF famotidine 20 mg Tablet 20 mg PO HS nitroglycerin 0.4 mg Tablet, Sublingual 0.4 mg sublingual DIRECTED PRN (Reason: Chest Pain) finasteride 5 mg Tablet 5 mg PO DAILY aspirin 81 mg tablet,delayed release (DR/EC) 81 mg PO DAILY Qty: 90 3RF clopidogrel 75 mg tablet 75 mg PO DAILY Qty: 30 6RF Referrals Referrals: Ciro Zayas MD [Primary Care Provider] -
[2024-10-16 15:38] LABS: Basophils # (auto) 0.06 K/uL (0.00-0.20); Basophils % (auto) 0.9 %; Eosinophils % (auto) 1.5 %; Hematocrit (blood only) 30.6 % (42.0-52.0); Hemoglobin 9.9 g/dl (14.0-18.0); Immature Granulocytes # (auto) 0.01 K/uL (0.01-0.20); Immature Granulocytes % (auto) 0.1 %; Lymphocytes # (auto) 0.99 K/uL (1.20-3.40); Lymphocytes % (auto) 14.5 %; Mean Corpuscular Hemoglobin 28.3 pg (25.0-34.0); Mean Corpuscular Hgb Conc 32.4 g/dL (32.0-36.0); Mean Corpuscular Volume 87.4 fL (80.0-100.0); Mean Platelet Volume 9.9 fL (9.4-12.4); Monocytes # (auto) 0.72 K/uL (0.11-0.59); Monocytes % (auto) 10.5 %; Neutrophils # (auto) 4.96 K/uL (1.40-6.50); Neutrophils % (auto) 72.5 %; Platelet Count 220 K/uL (130-400); RDW Coefficient of Variation 13.2 % (11.5-14.5); RDW Standard Deviation 42.1 fL (36.4-46.3); White Blood Count 6.84 K/ul (4.8-10.8)
--- NOTE | 2024-10-16 15:44 | XRay Report ---
INDICATION: Chest pain. TECHNIQUE: Frontal radiograph of the chest. COMPARISON: Radiograph from 09/14/2024. FINDINGS: Mild cardiomegaly. Pulmonary vasculature appear within normal limits. Chronic appearing interstitial lung markings. No infiltrate, pleural effusion or pneumothorax. No acute osseous abnormality evident. IMPRESSION: No acute cardiopulmonary process. Electronically signed by Todd Hernandez 10-16-2024 3:44 PM
[2024-10-16] MEDS: ALBUT/IPRATROP 3MG/0.5MG NEB 3 ML VIAL NEB STA (15:45)
[2024-10-16 16:01] LABS: Alanine Aminotransferase 18 U/L (7-52); Albumin Globulin Ratio 1.5 (0.9-2); Albumin Level 4.4 gm/dl (3.4-5.0); Alkaline Phosphatase 63 U/L (34-104); Anion Gap 6 (3-11); Aspartate Aminotransferase 24 U/L (13-39); BUN Creatinine Ratio 24.5 (10-20); Bilirubin,Total 0.4 mg/dl (0.2-1.0); Blood Urea Nitrogen 25 mg/dl (6-23); Calcium 8.8 mg/dl (8.6-10.3); Carbon Dioxide 26 mmol/L (21-32); Chloride 106 mmol/L (98-107); Globulin 2.9 gm/dl (2.5-4.0); Glucose 105 mg/dl (70-99(Fasting)); Magnesium 2.2 mg/dl (1.7-2.4); Potassium 4.4 mmol/L (3.5-5.1); Sodium 138 mmol/L (136-145); Total Protein 7.3 gm/dl (6.0-8.3)
[2024-10-16 16:07] LABS: Troponin I High Sensitivity 5.4 pg/ml (0-20)
[2024-10-16 16:16] LABS: Thyroid Stimulating Hormone 1.743 uIu/ml (0.300-4.500)
[2024-10-16 16:20] LABS: Partial Thromboplastin Ratio 0.9; Partial Thromboplastin Time 25 Seconds (21-31)
[2024-10-16] MEDS: LORazepam 0.5 MG TAB PO STA (18:07)
--- NOTE | 2024-10-16 18:07 | History & Physical Report ---
Date of Service October 16, 2024 Assessment & Plan (1) CASTILLO (dyspnea on exertion): (2) Acute on chronic blood loss anemia: (3) Anxiety about health: (4) COPD with emphysema: (5) Ventricular ectopy: (6) CAD (coronary artery disease): Plan Patient is 88-year-old gentleman with known severe emphysema presents with severe dyspnea on exertion and subsequent lightheadedness and dizziness without evidence of hypoxia. Patient has had previous hospitalizations for similar symptomatology. Has undergone significant workup in the past including EGD, colonoscopy, cardiac cath, echocardiogram, ZIO monitoring. Patient does have some evidence of acute on chronic blood loss, Patient is at risk for further deterioration, ongoing blood loss and significant organ dysfunction. Patient needs additional evaluation and monitoring here in the hospital. Admit to a monitored setting in the hospital Consult cardiology, patient does have this ventricular ectopy to be an recent cardiac cath with stenting. Unclear if his dyspnea is at all related to any cardiac disease Consult pulmonary, patient may just be having more rapid progression of his severe emphysema and his symptoms are progressing despite his lack of hypoxia Consult GI, does appear the patient is having some ongoing blood loss suspected from the GI tract despite negative scopes. At this time patient does not meet criteria for blood transfusion Anemia eval, TSH is within normal limits, check B12, folate, iron studies, reticulocyte count, LDH Continue to monitor O2 sat Patient did have abnormal CT with nodule back in August, will repeat CTA of the chest now to rule out PE, people with severe emphysema INR higher risk for spontaneous PE. Also evaluate if there is been any progression of this nodule. Continue outpatient inhalers and nebulizers Hold antiplatelet therapy in the setting of concern for GI blood loss Increase PPI to 2 times daily Monitor hemoglobin and electrolytes Suspect anxiety may be playing a fairly significant component to the patient's symptoms. He does have Ativan and a home med list to be used as needed. Will give him a dose now and continue to monitor how his anxiety levels may fluctuate with his hospitalization and whether he needs more significant interventions to help minimize his symptoms. History of Present Illness Chief Complaint: Disabling dyspnea Primary Care Provider: Ciro Zayas MD Patient is an 88-year-old gentleman with known severe emphysema but does not require home oxygen. He also has known coronary artery disease. Presents to the emergency room today with severe dyspnea on exertion. In the emergency room workup was remarkable for a slightly decreased hemoglobin from his baseline, however, he was 100% O2 sat on room air. Other laboratory studies were unremarkable. Chest x-ray Showed no acute process. Due to the patient's severe dyspnea there was concern and was referred to our service for further evaluation. Time of my evaluation Patient was resting comfortably on the litter, however he did seem quite anxious. His O2 sat was 100%. He describes severe dyspnea on exertion as he attempted to go shopping at [employer] today. He states that he could barely walk 20 feet without having to take a rest. He barely made it back to his car. Once he sat in the car and rested for a while he felt able to drive. [facility] he could barely make it into the building and got extremely dyspneic. He received some assistance from a bystander to walk him back to his car. Again as he sat in the car for period of time he felt well enough to be able to drive home. Once he got home his brother brought him to the emergency room for evaluation. He denies any fever and chills. No new cough or cold symptoms. He denies chest pain. He denies palpitations. He denies any swelling in his hands arms legs or feet. He states he has been compliant with his new inhaler and nebulizer treatment that was started when he was in the hospital just 1 month ago. He does have a significant history of and severe anemia. He is quite co ncerned and follows his hemoglobin quite closely. His hemoglobin is slightly decreased from when he was here about 1 month ago but not at a level that should be severely symptomatic or that would require transfusion. He did have colonoscopy and EGD about 11 months ago. Also had ZIO monitoring and cardiac cath within the past few months and has had extensive evaluation by pulmonary all for similar symptoms of this debilitating dyspnea. He does have severe emphysema on imaging, however he has not met criteria for home oxygen. Patient states he has had some minor nosebleeds, has seen ENT who recommend nasal saline and Vaseline in his nose. He denies seeing any blood in his stool or black tarry stools. Allergies Allergy/AdvReac Type Severity Reaction Status Date / Time No Known Allergies Allergy Mild Verified 10/16/24 17:22 Home Medications Medication Instructions Recorded Confirmed Type atorvastatin 40 mg tablet 40 mg PO HS 12/27/19 10/16/24 History cholecalciferol (vitamin D3) 25 25 mcg PO DAILY 12/27/19 10/16/24 History mcg (1,000 unit) tablet (Vitamin D3) fluoride (sodium) 1.1 % dental 1 applic PO DAILY 12/03/23 10/16/24 History paste (PreviDent 5000 Booster Plus) trazodone 50 mg tablet 50 mg PO HS Insomnia 12/03/23 10/16/24 History lorazepam 0.5 mg tablet (Ativan) 0.5 mg PO Q8H PRN anxiety #20 tabs 12/17/23 10/16/24 Rx pantoprazole 40 mg tablet,delayed 40 mg PO QAM 04/08/24 10/16/24 History release sertraline 100 mg tablet 50 mg PO QAM 04/08/24 10/16/24 History aspirin 81 mg tablet,delayed 81 mg PO DAILY #90 tabs 09/13/24 10/16/24 Rx release clopidogrel 75 mg tablet 75 mg PO DAILY #30 tabs 09/13/24 10/16/24 Rx famotidine 20 mg tablet 20 mg PO HS 09/13/24 10/16/24 History finasteride 5 mg tablet 5 mg PO DAILY 09/13/24 10/16/24 History nitroglycerin 0.4 mg sublingual 0.4 mg sublingual DIRECTED PRN 09/13/24 10/16/24 History tablet Chest Pain albuterol sulfate 90 mcg/actuation 2 puff inhalation Q4H PRN 09/14/24 10/16/24 History aerosol inhaler Shortness Of Breath Or Wheezing psyllium 1 packet PO DAILY 09/14/24 10/16/24 History albuterol sulfate 2.5 mg/3 mL 2.5 mg (3 mL) NEB Q6H PRN 09/16/24 10/16/24 Rx (0.083 %) solution for nebulization shortness of breath or wheezing #75 mL magnesium oxide 400 mg (241.3 mg 400 mg PO QAM #10 tabs 09/16/24 10/16/24 Rx magnesium) tablet arformoterol 15 mcg/2 mL solution 2 ml inhalation DAILY #60 mL 10/11/24 10/16/24 Rx for nebulization (Brovana) budesonide 0.5 mg/2 mL suspension 0.5 mg (2 mL) NEB BIDR #60 mL 10/11/24 10/16/24 Rx for nebulization tiotropium bromide 1.25 2 puff inhalation DAILY #4 grams 10/11/24 10/16/24 Rx mcg/actuation mist for inhalation (Spiriva Respimat) cyanocobalamin (vitamin B-12) 1,000 mcg PO DAILY 10/16/24 10/16/24 History 1,000 mcg tablet (Vitamin B-12) guaifenesin 600 mg tablet, 600 mg PO DAILY 10/16/24 10/16/24 History extended release 12 hr (Mucinex) turmeric 400 mg capsule 400 mg PO DAILY 10/16/24 10/16/24 History vitamin K2 40 mcg tablet 40 mcg PO DAILY 10/16/24 10/16/24 History Past Med/Surg History Problem List (Updated 10/16/24 @ 18:03 by Valerio Sanchez DO) Anxiety about health Acute on chronic blood loss anemia SOB (shortness of breath) (Acute) Chest pain (Acute) Ex-smoker Abnormal chest CT Pulmonary nodule COPD with emphysema Ventricular ectopy CAD (coronary artery disease) Elevated troponin (Acute) Bradycardia (Acute) CASTILLO (dyspnea on exertion) (Acute) Upper GI bleed Acute blood loss anemia Melena (Acute) Anemia (Acute) HLD (hyperlipidemia) COPD (chronic obstructive pulmonary disease) Medical History Dizziness Surgical History Hx of cystoscopy History of cardiac catheterization 09/13/24. Dr Cross History of esophagogastroduodenoscopy (EGD) History of colonoscopy Family History Mother Lung cancer Father Coronary heart disease Social History Smoking Status: Never smoker Tobacco Type: Cigarettes Cigarettes Per Day: 20; Second Hand Exposure: Yes; Do You Dip or Chew Tobacco: No; Hx Alcohol Use: No Hx Substance Use: No Preferred Language: Norwegian Communication Ability: Effective Environmental Officer Required: No Beliefs That Will Affect Care: None marital status: Current Living Situation: Family Current Living Situation Comment: lives with brother Feels Safe at Home: Yes Assistive Devices: Walker Review of Systems Review of Systems: Pertinent positive and negative review of systems as mentioned in the HPI Physical Exam Physical Exam: Constitutional: Alert, moderate respiratory distress, somewhat frail and underweight HEENT: Mucous membranes moist. Sclera clear Neck: Soft, no adenopathy Lungs: Decreased breath sounds, prolonged expiratory phase, no wheezes, some fine crackles CV: S1-S2, irregular Abdomen: Soft, nontender, nondistended Extremities: No significant edema Musculoskeletal: No significant joint tenderness Neuro: No focal deficits Psych: Cooperative, anxious Results & Data Results & Data Vital Signs (Past 12 Hours) Vital Signs Temp Pulse Resp BP Pulse Ox O2 Del Method 10/16/24 16:11 78 10/16/24 15:02 36.8 C 79 20 118/70 100 Room Air Diagnostic Findings Reviewed imaging, laboratory and diagnostic studies. Pertinent findings as below. Hemoglobin 9.9, Hemoglobin was 12.3 in September 16, 2024 Electrolytes stable Creatinine 1.02 Glucose 105 LFTs within normal range Personally reviewed chest x-ray images, hyperinflated, emphysematous lungs, no consolidative infiltrations appreciated Reviewed EKG/telemetry, frequent PVCs Reviewed EGD report from November 2023: Post ulcer deformity but no signs of active bleeding Reviewed colonoscopy report from November 2023, diverticulosis but no obvious source of bleeding Code Status & VTE Plan VTE Prophylaxis Plan VTE Prophylaxis will be ordered: Yes
[2024-10-16 18:13] LABS: Appearance Urine Clear (Clear); Bilirubin Urine Negative (Negative); Blood Urine Negative (Negative); Color Urine Yellow; Glucose Urine UA Negative (Negative); Ketones Urine Negative (Negative); Leukocyte Esterase Urine Negative (Negative); Nitrite Urine Negative (Negative); Protein Urine Negative (Negative); Specific Gravity Urine 1.014 (1.000-1.030); Urobilinogen Urine Negative (Negative)
[2024-10-16] MEDS: OPTIRAY 320 125ml IV ONE (18:22)
--- NOTE | 2024-10-16 18:41 | CT Scan Report ---
INDICATION: Weakness TECHNIQUE: Noncontrast of the CT head performed from the skull base to the vertex with coronal reformats. This was followed by contrast CT angiogram head and neck from the aortic arch through the vertex. Sagittal, coronal, axial, and rotational postprocessed maximum intensity projection reconstruction images were performed. COMPARISON: None. FINDINGS: CTA: NECK: Aortic arch: Normal caliber without aneurysm, dissection, or stenosis. Vertebral arteries: Normal caliber without dissection or stenosis. Right carotid artery: There is no significant stenosis. Left carotid artery: There is no significant stenosis. Head: Intracranial internal carotid arteries: Normal caliber without significant stenosis or aneurysm. Middle cerebral arteries: Normal caliber without significant stenosis or aneurysm. Anterior cerebral arteries: Normal caliber without significant stenosis or aneurysm. Basilar artery: Normal caliber without significant stenosis or aneurysm. Posterior cerebral arteries: Normal caliber without significant stenosis or aneurysm. Noncontrast Head: Mild chronic ischemic white matter changes. No evidence of acute intracranial hemorrhage, mass, or hydrocephalus. IMPRESSION: No acute intracranial process. No large vessel occlusion/stenosis or aneurysm in the head or neck. Electronically signed by Todd Hernandez 10-16-2024 6:41 PM
[2024-10-16] MEDS ORDERED: ALBUTEROL 0.083% NEBU SOLN 3 ML VIAL NEB PRN (21:08)
[2024-10-16] MEDS ORDERED: ONDANSETRON INJ 2 MG/ML 2 ML VIAL IV PRN (21:08)
[2024-10-16] MEDS ORDERED: ACETAMINOPHEN 325 MG TAB PO PRN (21:08)
[2024-10-16] MEDS ORDERED: LORazepam 0.5 MG TAB PO PRN (21:08)
[2024-10-16 21:42] LABS: Reticulocyte % 2.21 % (0.50-2.00); Reticulocytes # 0.07 10^6/uL (0.020-0.100)
[2024-10-16] MEDS: ATORVASTATIN 40 MG TAB PO SCH (21:42)
[2024-10-16] MEDS: traZODone HCL 50 MG TAB PO SCH (21:42)
[2024-10-16] MEDS: PANTOprazole 40 MG TAB PO SCH (21:42)
[2024-10-16 21:54] LABS: Ferritin 17.3 ng/ml (8-388)
[2024-10-16] MEDS: BUDESONIDE 0.5 MG/2 ML VIAL (PULMICORT) NEB SCH (21:58)
[2024-10-16 21:59] LABS: Folate (Folic Acid),Ser orPlas 17.94 ng/ml (>5.38)
[2024-10-17 06:14] LABS: Hematocrit (blood only) 28.4 % (42.0-52.0); Hemoglobin 9.2 g/dl (14.0-18.0); Mean Corpuscular Hemoglobin 28.7 pg (25.0-34.0); Mean Corpuscular Hgb Conc 32.4 g/dL (32.0-36.0); Mean Corpuscular Volume 88.5 fL (80.0-100.0); Mean Platelet Volume 9.8 fL (9.4-12.4); Platelet Count 196 K/uL (130-400); RDW Coefficient of Variation 13.3 % (11.5-14.5); RDW Standard Deviation 43.4 fL (36.4-46.3); Red Blood Count 3.21 M/uL (4.70-6.10); White Blood Count 6.11 K/ul (4.8-10.8)
[2024-10-17 06:38] LABS: Calcium 8.2 mg/dl (8.6-10.3); Potassium 4.1 mmol/L (3.5-5.1)
[2024-10-17 06:44] LABS: BUN Creatinine Ratio 22.9 (10-20); Creatinine Clr Calc Pharmacy 41.3 ml/min
[2024-10-17] MEDS: FORMOTEROL 20 MCG/2 ML VIAL INH SCH (07:10)
[2024-10-17] MEDS: PSYLLIUM or GUAR GUM FIBER 4GM PACKET PO SCH (07:57)
[2024-10-17] MEDS: UMECLIDINIUM BROMIDE 62.5MCG/BLISTER 7 PUFFS/INHALER INH SCH (07:57)
[2024-10-17] MEDS: CYANOCOBALAMIN (B-12) 500 MCG TABLET PO SCH (07:58)
[2024-10-17] MEDS: guaiFENesin 600 MG TABCR PO SCH (07:58)
[2024-10-17] MEDS: FINASTERIDE 5 MG TAB PO SCH (07:58)
[2024-10-17] MEDS: SERTRALINE HCL 50 MG TABLET PO SCH (07:58)
[2024-10-17] MEDS: MAGNESIUM OXIDE 400 MG TAB PO SCH (07:58)
[2024-10-17] MEDS: CHOLECALCIFEROL 25 MCG (1000 UNITS) TAB PO SCH (07:58)
--- NOTE | 2024-10-17 08:02 | Hospitalist Progress Note ---
Date of Service October 17, 2024 Assessment & Plan (1) CASTILLO (dyspnea on exertion): (2) Acute on chronic blood loss anemia: (3) Anxiety about health: (4) COPD with emphysema: (5) Ventricular ectopy: (6) CAD (coronary artery disease): Plan Patient is 88-year-old gentleman with known severe emphysema presents with severe dyspnea on exertion and subsequent lightheadedness and dizziness without evidence of hypoxia. Patient has had previous hospitalizations for similar symptomatology. Has undergone significant workup in the past including EGD, colonoscopy, cardiac cath, echocardiogram, ZIO monitoring. Patient does have some evidence of acute on chronic blood loss, Patient is at risk for further deterioration, ongoing blood loss and significant organ dysfunction. Patient needs additional evaluation and monitoring here in the hospital. Admitted to a monitored setting in the hospital Cardiology consulted, patient does have ventricular ectopy to be an recent cardiac cath with stenting. Unclear if his dyspnea is at all related to any cardiac disease Echo obtained - LV EF 55-60%, LV wall motion is normal, no pericardial effusion Per cardiology - Consider outpatient 14-day ZIO monitor for further evaluation upon discharge. Loop recorder may be considered in the future if ZIO unrevealing. Continue single antiplatelet therapy at this time with recent drug-eluting stent implantation. Aspirin may remain on hold. Monitor serial H&H maintain hemoglobin greater than 8.0 g/dL. Consider IV iron infusion. IV iron ordered FOBT ordered Pulmonary medicine consulted, patient may just be having more rapid progression of his severe emphysema and his symptoms are progressing despite his lack of hypoxia Per pulm. - No signs of respiratory acidosis on prior VBG's. Consider outpatient pulmonary rehab referral. Recommend carotid ultrasounds. , and cardiac eval. Follow-up with outpatient cone winder, Dr. Randolph. GI consulted, does appear the patient is having some ongoing blood loss suspected from the GI tract despite negative scopes. Per GI - At this point, I think he needs a outpatient capsule endoscopy -we will set this up for him. He can stay on PPI once daily. At this time patient does not meet criteria for blood transfusion Anemia eval, TSH is within normal limits, check B12, folate, iron studies, reticulocyte count, LDH Continue to monitor O2 sat Patient did have abnormal CT with nodule back in August, will repeat CTA of the chest now to rule out PE, people with severe emphysema INR higher risk for spontaneous PE. Also evaluate if there is been any progression of this nodule. Reviewed CTA of the chest report. No pulmonary embolism, emphysema, pulmonary nodule small and stable in size compared to previous Continue outpatient inhalers and nebulizers Increased PPI to 2 times daily Monitor hemoglobin and electrolytes Admission and Anticipated Discharge Date Admission Date: October 16, 2024 Subjective Pt seen in follow up of dyspnea, and near syncope Recently had cardiac stent placed Found to be anemic on admission GI, pulm., cardiology consulted Currently sitting up in bed in [facility], says overall he feels better. Denies any hematuria, denies blood in stool no chest pain Review of Systems Review of Systems: All systems reviewed & are unremarkable except as noted in Subjective Physical Exam Physical Exam: Constitutional: thin elderly M in NAD, on RA HEENT: Mucous membranes moist. Sclera clear Neck: supple Lungs: Decreased breath sounds, prolonged expiratory phase, no wheezes, some fine crackles CV: S1-S2, irregular Abdomen: Soft, nontender, nondistended Extremities: No significant edema, moves extremities Neuro: awake, alert, answers appropriately, speech fluent, moves extremities Results & Data Results & Data Vital Signs (Past 12 Hours) Vital Signs Temp Pulse Pulse Resp BP Pulse Ox O2 Del Method 10/17/24 07:48 36.3 C L 55 L 18 116/70 96 Room Air 10/17/24 07:10 67 18 99 Room Air 10/17/24 07:09 60 10/17/24 04:44 36.6 C 81 20 95/56 L 95 Room Air 10/17/24 00:33 36.3 C L 54 L 20 130/63 92 Room Air 10/16/24 21:58 57 L 18 98 Room Air 10/16/24 21:48 94 H 10/16/24 20:45 Room Air 10/16/24 20:45 36.4 C L 55 L 18 134/60 97 Room Air 10/16/24 20:35 78 Laboratory Results 10/17/24 10/16/24 10/16/24 Range/Units 05:48 Unknown 21:13 WBC 6.11 (4.8-10.8) K/ul RBC 3.21 L (4.70-6.10) M/uL Hgb 9.2 L (14.0-18.0) g/dl Hct 28.4 L (42.0-52.0) % MCV 88.5 (80.0-100.0) fL MCH 28.7 (25.0-34.0) pg MCHC 32.4 (32.0-36.0) g/dL RDW Std Deviation 43.4 (36.4-46.3) fL RDW Coeff of Ingrid 13.3 (11.5-14.5) % Plt Count 196 (130-400) K/uL MPV 9.8 (9.4-12.4) fL Immature Gran % (Auto) % Neut % (Auto) % Lymph % (Auto) % [place] % (Auto) % Eos % (Auto) % Baso % (Auto) % Reticulocyte % (Auto) 2.21 H (0.50-2.00) % Neut # (Auto) (1.40-6.50) K/uL Lymph # (Auto) (1.20-3.40) K/uL [place] # (Auto) (0.11-0.59) K/uL Eos # (Auto) (0.00-0.50) K/uL Baso # (Auto) (0.00-0.20) K/uL Reticulocyte # 0.070 (0.020-0.100) 10^6/uL Immature Gran # (Auto) (0.01-0.20) K/uL PT (9.0-12.0) Seconds INR (0.9-1.1) APTT (21-31) Seconds PTT Ratio Sodium 138 (136-145) mmol/L Potassium 4.1 (3.5-5.1) mmol/L Chloride 108 H (98-107) mmol/L Carbon Dioxide 25 (21-32) mmol/L Anion Gap 5 (3-11) BUN 22 (6-23) mg/dl Creatinine 0.96 (0.6-1.4) mg/dl Est Cr Clr Drug Dosing 41.3 eGFR 76.98 BUN/Creatinine Ratio 22.9 H (10-20) Glucose 99 (70-99(Fasting)) mg/dl Calcium 8.2 L (8.6-10.3) mg/dl Magnesium (1.7-2.4) mg/dl Iron (35-175) mcg/dl Transferrin (200-360) mg/dl Ferritin (8-388) ng/ml Total Bilirubin (0.2-1.0) mg/dl AST (13-39) U/L ALT (7-52) U/L Alkaline Phosphatase (34-104) U/L Lactate Dehydrogenase (86-244) U/L Troponin I High Sens (0-20) pg/ml Total Protein (6.0-8.3) gm/dl Albumin (3.4-5.0) gm/dl Globulin (2.5-4.0) gm/dl Albumin/Globulin Ratio (0.9-2) Vitamin B12 (180-914) pg/ml Folate (>5.38) ng/ml TSH (0.300-4.500) uIu/ml Urine Color Yellow Urine Appearance Clear (Clear) Urine pH 8.0 H (4.5-7.5) Ur Specific [place] 1.014 (1.000-1.030) Urine Protein Negative (Negative) Urine Glucose (UA) Negative (Negative) Urine Ketones Negative (Negative) Urine Blood Negative (Negative) Urine Nitrite Negative (Negative) Urine Bilirubin Negative (Negative) Urine Urobilinogen Negative (Negative) Ur Leukocyte Esterase Negative (Negative) 10/16/24 Range/Units 15:20 WBC 6.84 (4.8-10.8) K/ul RBC 3.50 L (4.70-6.10) M/uL Hgb 9.9 L (14.0-18.0) g/dl Hct 30.6 L (42.0-52.0) % MCV 87.4 (80.0-100.0) fL MCH 28.3 (25.0-34.0) pg MCHC 32.4 (32.0-36.0) g/dL RDW Std Deviation 42.1 (36.4-46.3) fL RDW Coeff of Ingrid 13.2 (11.5-14.5) % Plt Count 220 (130-400) K/uL MPV 9.9 (9.4-12.4) fL Immature Gran % (Auto) 0.1 % Neut % (Auto) 72.5 % Lymph % (Auto) 14.5 % [place] % (Auto) 10.5 % Eos % (Auto) 1.5 % Baso % (Auto) 0.9 % Reticulocyte % (Auto) (0.50-2.00) % Neut # (Auto) 4.96 (1.40-6.50) K/uL Lymph # (Auto) 0.99 L (1.20-3.40) K/uL [place] # (Auto) 0.72 H (0.11-0.59) K/uL Eos # (Auto) 0.10 (0.00-0.50) K/uL Baso # (Auto) 0.06 (0.00-0.20) K/uL Reticulocyte # (0.020-0.100) 10^6/uL Immature Gran # (Auto) 0.01 (0.01-0.20) K/uL PT 11.0 (9.0-12.0) Seconds INR 1.0 (0.9-1.1) APTT 25 (21-31) Seconds PTT Ratio 0.9 Sodium 138 (136-145) mmol/L Potassium 4.4 (3.5-5.1) mmol/L Chloride 106 (98-107) mmol/L Carbon Dioxide 26 (21-32) mmol/L Anion Gap 6 (3-11) BUN 25 H (6-23) mg/dl Creatinine 1.02 (0.6-1.4) mg/dl Est Cr Clr Drug Dosing Not Reportable eGFR 71.58 BUN/Creatinine Ratio 24.5 H (10-20) Glucose 105 H (70-99(Fasting)) mg/dl Calcium 8.8 (8.6-10.3) mg/dl Magnesium 2.2 (1.7-2.4) mg/dl Iron 28 L (35-175) mcg/dl Transferrin 317 (200-360) mg/dl Ferritin 17.3 (8-388) ng/ml Total Bilirubin 0.4 (0.2-1.0) mg/dl AST 24 (13-39) U/L ALT 18 (7-52) U/L Alkaline Phosphatase 63 (34-104) U/L Lactate Dehydrogenase 199 (86-244) U/L Troponin I High Sens 5.4 (0-20) pg/ml Total Protein 7.3 (6.0-8.3) gm/dl Albumin 4.4 (3.4-5.0) gm/dl Globulin 2.9 (2.5-4.0) gm/dl Albumin/Globulin Ratio 1.5 (0.9-2) Vitamin B12 372 (180-914) pg/ml Folate 17.94 (>5.38) ng/ml TSH 1.743 (0.300-4.500) uIu/ml Urine Color Urine Appearance (Clear) Urine pH (4.5-7.5) Ur Specific [place] (1.000-1.030) Urine Protein (Negative) Urine Glucose (UA) (Negative) Urine Ketones (Negative) Urine Blood (Negative) Urine Nitrite (Negative) Urine Bilirubin (Negative) Urine Urobilinogen (Negative) Ur Leukocyte Esterase (Negative) Medications Administered Current Inpatient Medications Acetaminophen (Acetaminophen 325 Mg Tab) 650 mg PO Q4H PRN PRN Reason: Pain or Fever Stop: 11/15/24 21:07 Albuterol (Albuterol 0.083% Nebu Soln 3 Ml Vial) 2.5 mg NEB Q6H PRN; Protocol PRN Reason: shortness of breath or wheezing Stop: 11/15/24 21:07 Atorvastatin Calcium (Atorvastatin 40 Mg Tab) 40 mg PO HS TYRON Stop: 11/15/24 21:07 Last Admin: 10/16/24 21:42 Dose: 40 mg Budesonide (Budesonide 0.5 Mg/2 Ml Vial (Pulmicort)) 0.5 mg NEB BIDR TYRON Stop: 11/15/24 21:07 Last Admin: 10/17/24 07:08 Dose: 0.5 mg Cyanocobalamin (Cyanocobalamin (B-12) 500 Mcg Tablet) 1,000 mcg PO DAILY TYRON Stop: 11/16/24 08:59 Last Admin: 10/17/24 07:58 Dose: 1,000 mcg Finasteride (Finasteride 5 Mg Tab) 5 mg PO DAILY TYRON Stop: 11/16/24 08:59 Last Admin: 10/17/24 07:58 Dose: 5 mg Formoterol Fumarate (Formoterol 20 Mcg/2 Ml Vial) 20 mcg INH DAILY TYRON Stop: 11/16/24 08:59 Last Admin: 10/17/24 07:10 Dose: 20 mcg Guaifenesin (Guaifenesin 600 Mg Tabcr) 600 mg PO DAILY TYRON Stop: 11/16/24 08:59 Last Admin: 10/17/24 07:58 Dose: 600 mg Lorazepam (Lorazepam 0.5 Mg Tab) 0.5 mg PO Q8H PRN PRN Reason: anxiety Stop: 11/15/24 21:07 Magnesium Oxide (Magnesium Oxide 400 Mg Tab) 400 mg PO QAM TYRON Stop: 11/16/24 08:59 Last Admin: 10/17/24 07:58 Dose: 400 mg Ondansetron HCl (Ondansetron Inj 2 Mg/Ml 2 Ml Vial) 4 mg IV Q6H PRN PRN Reason: Nausea Stop: 11/15/24 21:07 Pantoprazole Sodium (Pantoprazole 40 Mg Tab) 40 mg PO BID TYRON Stop: 11/15/24 21:07 Last Admin: 10/17/24 07:58 Dose: 40 mg Psyllium Hydrophilic Mucilloid (Psyllium Or Guar Gum Fiber 4gm Packet) 4 gm PO DAILY TYRON Stop: 11/16/24 08:59 Last Admin: 10/17/24 07:57 Dose: 4 gm Sertraline HCl (Sertraline Hcl 50 Mg Tablet) 50 mg PO QAM TYRON Stop: 11/16/24 08:59 Last Admin: 10/17/24 07:58 Dose: 50 mg Trazodone HCl (Trazodone Hcl 50 Mg Tab) 50 mg PO HS TYRON Stop: 11/15/24 21:07 Last Admin: 10/16/24 21:42 Dose: 50 mg Umeclidinium [place] (Umeclidinium [place] 62.5mcg/Blister 7 Puffs/Inhaler) 1 puffs INH DAILY TYRON Stop: 11/16/24 08:59 Last Admin: 10/17/24 07:57 Dose: 1 puffs Vitamin D (Cholecalciferol 25 Mcg (1000 Units) Tab) 25 mcg PO DAILY TYRON Stop: 11/16/24 08:59 Last Admin: 10/17/24 07:58 Dose: 25 mcg
--- NOTE | 2024-10-17 10:30 | Gastrointestinal Consultation ---
Date of Consultation October 17, 2024 Assessment & Plan (1) Anemia: Patient is not having any signs of active GI bleeding. It sounds like his bowels range from hard to soft and he admits to disimpacting himself at times. He admits to pelvic floor therapy. - follow hgb/hct to trend. - continue with protonix 40mg bid. - continue with psyllium. - add miralax 17gm daily. - given that he had a unremarkable colonoscopy and EGD last year, he would likely benefit from an outpatient capsule endoscopy to further evaluate anemia. Supervising Physician Co-Signing Physician Notes 88 year old gentleman with a history of known severe emphysema presents with severe dyspnea on exertion and subsequent lightheadedness and dizziness without evidence of hypoxia. Patient has had previous hospitalizations for similar symptomatology. He has undergone significant workup in the past including EGD, colonoscopy, cardiac cath, echocardiogram, ZIO monitoring. GI was consulted for a drop in hgb to 9.9 on this admission. He had been 12.3 on 09/16/24. He is not noticing any signs of GI bleeding. He tells me he can have several bowel movements a day that can range from hard to soft. However he denies any bleeding or melena like he had last year. At this point, I think he needs a outpatient capsule endoscopy -we will set this up for him. He can stay on PPI once daily. History of Present Illness Reason for Consultation: blood loss anemia Requesting Physician: Valerio Sanchez DO Attending Physician: Eliazar Sheth MD History of Present Illness Patient is 88 year old gentleman with a history of known severe emphysema presents with severe dyspnea on exertion and subsequent lightheadedness and dizziness without evidence of hypoxia. Patient has had previous hospitalizations for similar symptomatology. He has undergone significant workup in the past including EGD, colonoscopy, cardiac cath, echocardiogram, ZIO monitoring. GI was consulted for a drop in hgb to 9.9 on this admission. He had been 12.3 on 09/16/24. He is not noticing any signs of GI bleeding. He tells me he can have several bowel movements a day that can range from hard to soft. He does admit to disimpacting himself with this. He admits to doing pelvic floor therapy. He can get some lower abdominal pain that he attributes to hernias. he does feel lower abdominal pain is improved with moving his bowels/passing gas. no nsaid use. He reports a new cardiac stent that was placed 2-3 weeks ago at [facility]. He is now on plavix. 12/07/23 Colonoscopy - diverticulosis and internal hemorrhoids. 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 Allergies Allergy/AdvReac Type Severity Reaction Status Date / Time No Known Allergies Allergy Mild Verified 10/16/24 17:22 Home Medications Medication Instructions Recorded Confirmed Type atorvastatin 40 mg tablet 40 mg PO HS 12/27/19 10/16/24 History cholecalciferol (vitamin D3) 25 25 mcg PO DAILY 12/27/19 10/16/24 History mcg (1,000 unit) tablet (Vitamin D3) fluoride (sodium) 1.1 % dental 1 applic PO DAILY 12/03/23 10/16/24 History paste (PreviDent 5000 Booster Plus) trazodone 50 mg tablet 50 mg PO HS Insomnia 12/03/23 10/16/24 History lorazepam 0.5 mg tablet (Ativan) 0.5 mg PO Q8H PRN anxiety #20 tabs 12/17/23 10/16/24 Rx pantoprazole 40 mg tablet,delayed 40 mg PO QAM 04/08/24 10/16/24 History release sertraline 100 mg tablet 50 mg PO QAM 04/08/24 10/16/24 History aspirin 81 mg tablet,delayed 81 mg PO DAILY #90 tabs 09/13/24 10/16/24 Rx release clopidogrel 75 mg tablet 75 mg PO DAILY #30 tabs 09/13/24 10/16/24 Rx famotidine 20 mg tablet 20 mg PO HS 09/13/24 10/16/24 History finasteride 5 mg tablet 5 mg PO DAILY 09/13/24 10/16/24 History nitroglycerin 0.4 mg sublingual 0.4 mg sublingual DIRECTED PRN 09/13/24 10/16/24 History tablet Chest Pain albuterol sulfate 90 mcg/actuation 2 puff inhalation Q4H PRN 09/14/24 10/16/24 History aerosol inhaler Shortness Of Breath Or Wheezing psyllium 1 packet PO DAILY 09/14/24 10/16/24 History albuterol sulfate 2.5 mg/3 mL 2.5 mg (3 mL) NEB Q6H PRN 09/16/24 10/16/24 Rx (0.083 %) solution for nebulization shortness of breath or wheezing #75 mL magnesium oxide 400 mg (241.3 mg 400 mg PO QAM #10 tabs 09/16/24 10/16/24 Rx magnesium) tablet arformoterol 15 mcg/2 mL solution 2 ml inhalation DAILY #60 mL 10/11/24 10/16/24 Rx for nebulization (Brovana) budesonide 0.5 mg/2 mL suspension 0.5 mg (2 mL) NEB BIDR #60 mL 10/11/24 10/16/24 Rx for nebulization tiotropium bromide 1.25 2 puff inhalation DAILY #4 grams 10/11/24 10/16/24 Rx mcg/actuation mist for inhalation (Spiriva Respimat) cyanocobalamin (vitamin B-12) 1,000 mcg PO DAILY 10/16/24 10/16/24 History 1,000 mcg tablet (Vitamin B-12) guaifenesin 600 mg tablet, 600 mg PO DAILY 10/16/24 10/16/24 History extended release 12 hr (Mucinex) turmeric 400 mg capsule 400 mg PO DAILY 10/16/24 10/16/24 History vitamin K2 40 mcg tablet 40 mcg PO DAILY 10/16/24 10/16/24 History Patient History Medical History Dizziness Surgical History Hx of cystoscopy History of cardiac catheterization 09/13/24. Dr Cross History of esophagogastroduodenoscopy (EGD) History of colonoscopy Family History Mother Lung cancer Father Coronary heart disease Social History Smoking Status: Former smoker Tobacco Type: Cigarettes Cigarettes Per Day: 20; Second Hand Exposure: Yes; Do You Dip or Chew Tobacco: No; Hx Alcohol Use: No Hx Substance Use: No Preferred Language: Maori Communication Ability: Effective Career Development Coordinator/Teacher Required: No Beliefs That Will Affect Care: None marital status: Current Living Situation: Alone Current Living Situation Comment: lives with brother Feels Safe at Home: Yes Safety Concerns: Feels Safe At This Time Assistive Devices: Walker Review of Systems Review of Systems: All systems reviewed & are unremarkable except as noted in HPI & below Physical Exam Constitutional: WD/WN, vitals as above Respiratory: normal respiratory effort, lungs clear to auscultation Cardiovascular: Rate/Rhythm: regular rate and regular rhythm Gastrointestinal (Abdomen): normal bowel sounds, soft, nontender, no hepatosplenomegaly Psychiatric: Orientation: alert and oriented x 3 Affect: euthymic affect Results & Data Vital Signs (Past 12 Hours) Vital Signs Temp Pulse Pulse Resp BP Pulse Ox O2 Del Method 10/17/24 08:00 Room Air 10/17/24 07:48 97.3 F L 55 L 18 116/70 96 Room Air 10/17/24 07:10 67 18 99 Room Air 10/17/24 07:09 60 10/17/24 04:44 97.9 F 81 20 95/56 L 95 Room Air 10/17/24 00:33 97.3 F L 54 L 20 130/63 92 Room Air Coding Level of Care Code 55523 INT INP/OBS CARE 2/55MIN Diagnoses Anemia D64.9
--- NOTE | 2024-10-17 11:27 | Cardiology Consultation ---
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 Recent stent to the prox LAD on 09/13/24 1 day post stent, he was readmitted due to similar SOB, elevated troponin with echo revealing normal LVEF. No wall motion abnormalities. treated for COPD exacerbation with severe emphysema noted on chest CT. Now following with pulm. Per patient, symptoms improved post discharge, until this past week, symptoms returned. Noted significant dyspnea with exertion, unable to ambulate 20 feet without stopping and "gasping" for air. No chest pain. He reports feeling "dizzy" and near syncopal with ongoing exertion if he 'pushes himself". No true syncope. Recommend repeat echo to reassess LVEF and pulm pressures. HS troponin negative on admission. EKG without acute ischemic changes. Chest CT negative for PE. Underlying emphysema noted. Acute possible blood loss anemia, possibly contributing to his dyspnea. Hbg previously 13.2, now 9.2 on admission. patient denies changes to his bowel habits, or significant hematuria, but is concerned with diverticulitis. Has had several episodes of abdominal pain. GI consulted. He had scopes last year which were unremarkable. Conservative therapies recommended for now. For now, continue Plavix 75 mg daily given recent coronary stent. Acceptable to hold ASA until hbg stabilizes. He has a long history of frequent ventricular ectopy, ectopic atrial arrhythmias. He has been followed by EP as an outpatient who felt there was no acute indication for pacemaker, but his rhythm has been followed closely. Avoidance of beta blockers/AV julius blocking agents recommended. Telemetry without significant bradycardia, pauses Further recommendations pending evaluation/discussion with Dr. Sutton. I spent a total of 60 minutes on the date of service in preparation, delivery, and documentation of the care provided to this patient, excluding any time spent in the performance of separately billed services. Connie Gunter PA-C Department of Cardiology, [facility] This chart was completed in part utilizing Speech Voice Recognition Software. Grammatical errors, random word insertions, pronoun errors, and incomplete sentences are an occasional consequence of this system due to software limitations, ambient noise, and hardware issues. Any formal questions or concerns about the content, text, or information contained within the body of this dictation should be directly addressed to the provider for clarification. Supervising Physician Co-Signing Physician Notes I have personally performed a history and physical examination on the patient. I have reviewed the advance practitioner's documentation, and I agree with, and take responsibility for the plan of care. 88-year-old male admitted with near syncope and dyspnea on exertion. Recent proximal LAD stent placed September 13, 2024. High-sensitivity troponin within normal limits on admission. No ischemic ECG changes. Echocardiogram revealing preserved LV systolic function and normal wall motion. Telemetry demonstrates sinus rhythm, ectopic atrial rhythm, and frequent PVCs (chronic finding). No significant pauses, heart block, or symptomatic bradycardia recorded. Continue telemetry monitoring during hospitalization. Consider outpatient 14-day ZIO monitor for further evaluation upon discharge. Loop recorder may be considered in the future if ZIO unrevealing. Hemoglobin of 13.2g/dL recorded 09/14/2024 now down to 9.2 g/dL. Low iron and reduced ferritin noted on admission. Suspect symptomatic anemia contributing to current symptoms with 4g hgb drop over the past 4 weeks. History of bladder tumor status post resection and multiple BCG treatments with associated hematuria and passing clots. Denies any signs/symptoms of GI blood loss however h/o significant symptomatic anemia in November 2023 with Hgb down to 6.3g/dL. Consider urology consultation. Gastroenterology consulted. Continue single antiplatelet therapy at this time with recent drug-eluting stent implantation. Aspirin may remain on hold. Monitor serial H&H maintain hemoglobin greater than 8.0 g/dL. Consider IV iron infusion. I spent a total of 40 minutes on the date of service in preparation, delivery, and documentation of the care provided to this patient, excluding any time spent in the performance of separately billed services. Eddie Sutton DO, [facility] History of Present Illness Reason for Consultation: SOB Requesting Physician: Josiah Jimenez Attending Physician: Dr. Sutton History of Present Illness Patient is a 88 year old male who presented to [facility] yesterday with complaints of worsening SOB and dizziness. This has been an ongoing complaint for patient for the last several months leading to evaluation and cardiac cath demonstrating multivessel coronary artery disease, where he received SMITA to the LAD on 09/13/24. Med management recommended for other non obstructive disease. One day post discharge of his heart cath, patient was re-admitted for SOB with exertion, same symptoms leading up to cath, but never resolved. He had elevated troponin during this admission, but felt it was due to coronary intervention the day before. Echo post intervention demonstrating normal LVEF without wall motion abnormalities. He was ultimately treated for COPD/emphysema during this admission and symptoms improved during admission Patient reports he was feeling well for the next few weeks. However, yesterday when trying to amb[facility], symptoms returned with worsening SOB and near syncope. Symptoms resolved with rest. He then returned to his car, and rested and drove home. Due to worsening SOB with activities, patient was brought to the ER for evaluation. EKG demonstrating NSR with intermittent ectopic atrial rhythm, frequent PVC's. HS troponin negative. Chest xray and chest CTA He admits to significant anxiety regarding his health and medical problems His hbg is trending lower today. He notes intermittent abdominal pain. He has invasive bladder CA but no worsening hematuria. GI has been consulted. History includes: 1. Frequent PVC's 2. Intermittent junctional rhythm, nonsustained VT 3. CAD s/p LAD stent in Aug 2024 4. COPD/emphysema 5. HTN 6. Prior smoker Allergies Allergy/AdvReac Type Severity Reaction Status Date / Time No Known Allergies Allergy Mild Verified 10/16/24 17:22 Home Medications Medication Instructions Recorded Confirmed Type atorvastatin 40 mg tablet 40 mg PO HS 12/27/19 10/16/24 History cholecalciferol (vitamin D3) 25 25 mcg PO DAILY 12/27/19 10/16/24 History mcg (1,000 unit) tablet (Vitamin D3) fluoride (sodium) 1.1 % dental 1 applic PO DAILY 12/03/23 10/16/24 History paste (PreviDent 5000 Booster Plus) trazodone 50 mg tablet 50 mg PO HS Insomnia 12/03/23 10/16/24 History lorazepam 0.5 mg tablet (Ativan) 0.5 mg PO Q8H PRN anxiety #20 tabs 12/17/23 10/16/24 Rx pantoprazole 40 mg tablet,delayed 40 mg PO QAM 04/08/24 10/16/24 History release sertraline 100 mg tablet 50 mg PO QAM 04/08/24 10/16/24 History aspirin 81 mg tablet,delayed 81 mg PO DAILY #90 tabs 09/13/24 10/16/24 Rx release clopidogrel 75 mg tablet 75 mg PO DAILY #30 tabs 09/13/24 10/16/24 Rx famotidine 20 mg tablet 20 mg PO HS 09/13/24 10/16/24 History finasteride 5 mg tablet 5 mg PO DAILY 09/13/24 10/16/24 History nitroglycerin 0.4 mg sublingual 0.4 mg sublingual DIRECTED PRN 09/13/24 10/16/24 History tablet Chest Pain albuterol sulfate 90 mcg/actuation 2 puff inhalation Q4H PRN 09/14/24 10/16/24 History aerosol inhaler Shortness Of Breath Or Wheezing psyllium 1 packet PO DAILY 09/14/24 10/16/24 History albuterol sulfate 2.5 mg/3 mL 2.5 mg (3 mL) NEB Q6H PRN 09/16/24 10/16/24 Rx (0.083 %) solution for nebulization shortness of breath or wheezing #75 mL magnesium oxide 400 mg (241.3 mg 400 mg PO QAM #10 tabs 09/16/24 10/16/24 Rx magnesium) tablet arformoterol 15 mcg/2 mL solution 2 ml inhalation DAILY #60 mL 10/11/24 10/16/24 Rx for nebulization (Brovana) budesonide 0.5 mg/2 mL suspension 0.5 mg (2 mL) NEB BIDR #60 mL 10/11/24 10/16/24 Rx for nebulization tiotropium bromide 1.25 2 puff inhalation DAILY #4 grams 10/11/24 10/16/24 Rx mcg/actuation mist for inhalation (Spiriva Respimat) cyanocobalamin (vitamin B-12) 1,000 mcg PO DAILY 10/16/24 10/16/24 History 1,000 mcg tablet (Vitamin B-12) guaifenesin 600 mg tablet, 600 mg PO DAILY 10/16/24 10/16/24 History extended release 12 hr (Mucinex) turmeric 400 mg capsule 400 mg PO DAILY 10/16/24 10/16/24 History vitamin K2 40 mcg tablet 40 mcg PO DAILY 10/16/24 10/16/24 History Patient History Medical History Dizziness Surgical History Hx of cystoscopy History of cardiac catheterization 09/13/24. Dr Cross History of esophagogastroduodenoscopy (EGD) History of colonoscopy Family History Mother Lung cancer Father Coronary heart disease Social History Smoking Status: Former smoker Tobacco Type: Cigarettes Cigarettes Per Day: 20; Second Hand Exposure: Yes; Do You Dip or Chew Tobacco: No; Hx Alcohol Use: No Hx Substance Use: No Preferred Language: Ukrainian Communication Ability: Effective Hat Sprayer Required: No Beliefs That Will Affect Care: None marital status: Current Living Situation: Alone Current Living Situation Comment: lives with brother Feels Safe at Home: Yes Safety Concerns: Feels Safe At This Time Assistive Devices: Walker Review of Systems Review of Systems: All systems reviewed & are unremarkable except as noted in HPI & below Physical Exam Constitutional: WD/WN, vitals as above + thin; no acute distress Neck: trachea midline, no thyromegaly Respiratory: no labored breathing Auscultation: + diminished lung sounds; no crackles, no rales and no wheezes Cardiovascular: Rate/Rhythm: regular rate and regular rhythm (Occ ectopy ) Heart Sounds: normal S1 and normal S2; no murmur Vessels: no JVD Extremities: no edema Gastrointestinal (Abdomen): normal bowel sounds, soft, nontender, no hepatosplenomegaly Results & Data Vital Signs (Past 12 Hours) Vital Signs Temp Pulse Pulse Resp BP Pulse Ox O2 Del Method 10/17/24 11:15 97 10/17/24 08:00 Room Air 10/17/24 07:48 36.3 C L 55 L 18 116/70 96 Room Air 10/17/24 07:10 67 18 99 Room Air 10/17/24 07:09 60 10/17/24 04:44 36.6 C 81 20 95/56 L 95 Room Air 10/17/24 00:33 36.3 C L 54 L 20 130/63 92 Room Air Laboratory Results Cardiac Enzymes 10/16/24 Range/Units 15:20 AST 24 (13-39) U/L Lactate Dehydrogenase 199 (86-244) U/L Troponin I High Sens 5.4 (0-20) pg/ml Coagulation 10/16/24 Range/Units 15:20 PT 11.0 (9.0-12.0) Seconds APTT 25 (21-31) Seconds CBC 10/16/24 10/17/24 Range/Units 15:20 05:48 WBC 6.84 6.11 (4.8-10.8) K/ul RBC 3.50 L 3.21 L (4.70-6.10) M/uL Hgb 9.9 L 9.2 L (14.0-18.0) g/dl Hct 30.6 L 28.4 L (42.0-52.0) % Plt Count 220 196 (130-400) K/uL Neut # (Auto) 4.96 (1.40-6.50) K/uL Lymph # (Auto) 0.99 L (1.20-3.40) K/uL George # (Auto) 0.72 H (0.11-0.59) K/uL Eos # (Auto) 0.10 (0.00-0.50) K/uL Baso # (Auto) 0.06 (0.00-0.20) K/uL Comprehensive Metabolic Panel 10/16/24 10/17/24 Range/Units 15:20 05:48 Sodium 138 138 (136-145) mmol/L Potassium 4.4 4.1 (3.5-5.1) mmol/L Chloride 106 108 H (98-107) mmol/L Carbon Dioxide 26 25 (21-32) mmol/L BUN 25 H 22 (6-23) mg/dl Creatinine 1.02 0.96 (0.6-1.4) mg/dl Glucose 105 H 99 (70-99(Fasting)) mg/dl Calcium 8.8 8.2 L (8.6-10.3) mg/dl AST 24 (13-39) U/L ALT 18 (7-52) U/L Alkaline Phosphatase 63 (34-104) U/L Total Protein 7.3 (6.0-8.3) gm/dl Albumin 4.4 (3.4-5.0) gm/dl Intake and Output 10/16/24 10/17/24 10/17/24 22:59 06:59 14:59 Intake Total 200 / 200 Balance 200 / 200 Intake: Oral 200 / 200 Other: Other Intake Source sips # Unmeasured Voids 2 1 Weight 52.8 kg Weight Measurement Method Standing Scale Diagnostic Findings Telemetry reviewed: NSR with frequent ventricular ectopy. Intermittent ectopic atrial rhythm with inverted P waves noted. No pauses or bradycardia EKG reviewed: Ectopic atrial rhythm, frequent PVCs no significant change from previous Chest X-Ray 10/16/24 15:19 IMPRESSION: No acute cardiopulmonary process. Electronically signed by Todd Hernandez 10-16-2024 3:44 PM Chest CTA 10/16/24 17:50 IMPRESSION: No acute intracranial process. No large vessel occlusion/stenosis or aneurysm in the head or neck. Prior data reviewed: Echo report reviewed from 09/14/24: Normal LVEF No wall motion abnormalities No pericardial effusion RV is normal in size and function. Cath report dated 09/13/[address] Cross 1. Multivessel vessel coronary artery disease -50% proximal, 90% mid LAD 40-50% calcified distal left main 40% proximal high OM1. 50% small AV groove circumflex after OM1 50% proximal RCA 2. Normal intracardiac filling pressure 3. Successful PCI of proximal to mid LAD with single drug-eluting stent (2.75 x 26 mm Devante; postdilated with 3.0 NC) Medications Administered Current Inpatient Medications Acetaminophen (Acetaminophen 325 Mg Tab) 650 mg PO Q4H PRN PRN Reason: Pain or Fever Stop: 11/15/24 21:07 Albuterol (Albuterol 0.083% Nebu Soln 3 Ml Vial) 2.5 mg NEB Q6H PRN; Protocol PRN Reason: shortness of breath or wheezing Stop: 11/15/24 21:07 Atorvastatin Calcium (Atorvastatin 40 Mg Tab) 40 mg PO HS TYRON Stop: 11/15/24 21:07 Last Admin: 10/16/24 21:42 Dose: 40 mg Budesonide (Budesonide 0.5 Mg/2 Ml Vial (Pulmicort)) 0.5 mg NEB BIDR TYRON Stop: 11/15/24 21:07 Last Admin: 10/17/24 07:08 Dose: 0.5 mg Cyanocobalamin (Cyanocobalamin (B-12) 500 Mcg Tablet) 1,000 mcg PO DAILY TYRON Stop: 11/16/24 08:59 Last Admin: 10/17/24 07:58 Dose: 1,000 mcg Finasteride (Finasteride 5 Mg Tab) 5 mg PO DAILY TYRON Stop: 11/16/24 08:59 Last Admin: 10/17/24 07:58 Dose: 5 mg Formoterol Fumarate (Formoterol 20 Mcg/2 Ml Vial) 20 mcg INH DAILY TYRON Stop: 11/16/24 08:59 Last Admin: 10/17/24 07:10 Dose: 20 mcg Guaifenesin (Guaifenesin 600 Mg Tabcr) 600 mg PO DAILY TYRON Stop: 11/16/24 08:59 Last Admin: 10/17/24 07:58 Dose: 600 mg Lorazepam (Lorazepam 0.5 Mg Tab) 0.5 mg PO Q8H PRN PRN Reason: anxiety Stop: 11/15/24 21:07 Magnesium Oxide (Magnesium Oxide 400 Mg Tab) 400 mg PO QAM TYRON Stop: 11/16/24 08:59 Last Admin: 10/17/24 07:58 Dose: 400 mg Ondansetron HCl (Ondansetron Inj 2 Mg/Ml 2 Ml Vial) 4 mg IV Q6H PRN PRN Reason: Nausea Stop: 11/15/24 21:07 Pantoprazole Sodium (Pantoprazole 40 Mg Tab) 40 mg PO BID TYRON Stop: 11/15/24 21:07 Last Admin: 10/17/24 07:58 Dose: 40 mg Psyllium Hydrophilic Mucilloid (Psyllium Or Guar Gum Fiber 4gm Packet) 4 gm PO DAILY TYRON Stop: 11/16/24 08:59 Last Admin: 10/17/24 07:57 Dose: 4 gm Sertraline HCl (Sertraline Hcl 50 Mg Tablet) 50 mg PO QAM TYRON Stop: 11/16/24 08:59 Last Admin: 10/17/24 07:58 Dose: 50 mg Trazodone HCl (Trazodone Hcl 50 Mg Tab) 50 mg PO HS TYRON Stop: 11/15/24 21:07 Last Admin: 10/16/24 21:42 Dose: 50 mg Umeclidinium Albion (Umeclidinium [place] 62.5mcg/Blister 7 Puffs/Inhaler) 1 puffs INH DAILY TYRON Stop: 11/16/24 08:59 Last Admin: 10/17/24 07:57 Dose: 1 puffs Vitamin D (Cholecalciferol 25 Mcg (1000 Units) Tab) 25 mcg PO DAILY [facility] Stop: 11/16/24 08:59 Last Admin: 10/17/24 07:58 Dose: 25 mcg
--- NOTE | 2024-10-17 12:20 | Pulmonary Consultation ---
Date of Consultation October 17, 2024 Assessment & Plan (1) Pre-syncope: Unrelated to acute pulmonary cause at this time. Recommend obtaining echocardiogram to rule out RV dysfunction or valvular issues. Recommend further cardiac evaluation to evaluate for tachyarrhythmias especially in light of abnormal EKG on admission. Recommend carotid ultrasounds. (2) COPD (chronic obstructive pulmonary disease): No signs of COPD exacerbation at this time. Continue ICS/LABA/LAMA therapy. No signs of respiratory acidosis on prior VBG's. Consider outpatient pulmonary rehab referral. Follow-up with outpatient family medicine chair, Dr. Randolph. COPD type: emphysema Emphysema type: unspecified Qualified Code(s): J43.9 - Emphysema, unspecified (3) Moderate protein-energy malnutrition: Consider dietary consultation. 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 Plan Pulmonary to follow peripherally. Please call questions. Thank you for the consult. History of Present Illness Reason for Consultation: "Severe emphysema, persistent dyspnea Attending Physician: Eliazar Sheth MD History of Present Illness 88-year-old male well-known to the pulmonary clinic by Dr. Randolph with a history of severe emphysema and COPD presenting to the hospital due to pre-syncope symptoms. Patient has been saturating well on room air this admission. Chest CTA 10/16/2024 revealed findings of severe emphysema, few subcentimeter pulmonary nodules and negative for pulmonary embolism. No focal consolidation was seen. No ABG was obtained on admission. Prior VBG's were unremarkable without evidence of chronic hypercapnia. EKG on admission was abnormal with nonspecific ST segment changes and possible ectopic atrial rhythm. Patient denies any significant shortness of breath or chest pain. He did endorse dizziness prior to his presyncope event. He denies any presyncope while in the hospital. Allergies Allergy/AdvReac Type Severity Reaction Status Date / Time No Known Allergies Allergy Mild Verified 10/16/24 17:22 Home Medications Medication Instructions Recorded Confirmed Type atorvastatin 40 mg tablet 40 mg PO HS 12/27/19 10/16/24 History cholecalciferol (vitamin D3) 25 25 mcg PO DAILY 12/27/19 10/16/24 History mcg (1,000 unit) tablet (Vitamin D3) fluoride (sodium) 1.1 % dental 1 applic PO DAILY 12/03/23 10/16/24 History paste (PreviDent 5000 Booster Plus) trazodone 50 mg tablet 50 mg PO HS Insomnia 12/03/23 10/16/24 History lorazepam 0.5 mg tablet (Ativan) 0.5 mg PO Q8H PRN anxiety #20 tabs 12/17/23 10/16/24 Rx pantoprazole 40 mg tablet,delayed 40 mg PO QAM 04/08/24 10/16/24 History release sertraline 100 mg tablet 50 mg PO QAM 04/08/24 10/16/24 History aspirin 81 mg tablet,delayed 81 mg PO DAILY #90 tabs 09/13/24 10/16/24 Rx release clopidogrel 75 mg tablet 75 mg PO DAILY #30 tabs 09/13/24 10/16/24 Rx famotidine 20 mg tablet 20 mg PO HS 09/13/24 10/16/24 History finasteride 5 mg tablet 5 mg PO DAILY 09/13/24 10/16/24 History nitroglycerin 0.4 mg sublingual 0.4 mg sublingual DIRECTED PRN 09/13/24 10/16/24 History tablet Chest Pain albuterol sulfate 90 mcg/actuation 2 puff inhalation Q4H PRN 09/14/24 10/16/24 History aerosol inhaler Shortness Of Breath Or Wheezing psyllium 1 packet PO DAILY 09/14/24 10/16/24 History albuterol sulfate 2.5 mg/3 mL 2.5 mg (3 mL) NEB Q6H PRN 09/16/24 10/16/24 Rx (0.083 %) solution for nebulization shortness of breath or wheezing #75 mL magnesium oxide 400 mg (241.3 mg 400 mg PO QAM #10 tabs 09/16/24 10/16/24 Rx magnesium) tablet arformoterol 15 mcg/2 mL solution 2 ml inhalation DAILY #60 mL 10/11/24 10/16/24 Rx for nebulization (Brovana) budesonide 0.5 mg/2 mL suspension 0.5 mg (2 mL) NEB BIDR #60 mL 10/11/24 10/16/24 Rx for nebulization tiotropium bromide 1.25 2 puff inhalation DAILY #4 grams 10/11/24 10/16/24 Rx mcg/actuation mist for inhalation (Spiriva Respimat) cyanocobalamin (vitamin B-12) 1,000 mcg PO DAILY 10/16/24 10/16/24 History 1,000 mcg tablet (Vitamin B-12) guaifenesin 600 mg tablet, 600 mg PO DAILY 10/16/24 10/16/24 History extended release 12 hr (Mucinex) turmeric 400 mg capsule 400 mg PO DAILY 10/16/24 10/16/24 History vitamin K2 40 mcg tablet 40 mcg PO DAILY 10/16/24 10/16/24 History Patient History Medical History Dizziness Surgical History Hx of cystoscopy History of cardiac catheterization 09/13/24. Dr Cross History of esophagogastroduodenoscopy (EGD) History of colonoscopy Family History Mother Lung cancer Father Coronary heart disease Social History Smoking Status: Former smoker Tobacco Type: Cigarettes Cigarettes Per Day: 20; Second Hand Exposure: Yes; Do You Dip or Chew Tobacco: No; Hx Alcohol Use: No Hx Substance Use: No Preferred Language: Chinese Communication Ability: Effective Knotter Hand Required: No Beliefs That Will Affect Care: None marital status: Current Living Situation: Alone Current Living Situation Comment: lives with brother Feels Safe at Home: Yes Safety Concerns: Feels Safe At This Time Assistive Devices: Walker Review of Systems Review of Systems: All systems reviewed & are unremarkable except as noted in HPI & below Physical Exam Physical Exam: Constitutional: No acute distress HEENT: EOMI, PERRLA Respiratory system: Decreased air entry bilaterally, prolonged phase of exhalation. No wheezes. CVS: S1-S2 positive, no murmurs or gallops Abdomen: Soft, nontender, nondistended, positive bowel sounds x4 Extremities: +2 pulses bilaterally radialis, no cyanosis, no edema Neuro: Awake alert oriented x3 Psych: Normal mood and affect Skin: no rashes, warm and dry Lymphatic: no cervical or axillary lymphadenopathy Results & Data Results & Data Vital Signs (Past 12 Hours) Vital Signs Temp Pulse Pulse Resp BP Pulse Ox O2 Del Method 10/17/24 11:59 36.3 C L 75 18 128/70 95 Room Air 10/17/24 11:15 97 10/17/24 08:00 Room Air 10/17/24 07:48 36.3 C L 55 L 18 116/70 96 Room Air 10/17/24 07:10 67 18 99 Room Air 10/17/24 07:09 60 10/17/24 04:44 36.6 C 81 20 95/56 L 95 Room Air 10/17/24 00:33 36.3 C L 54 L 20 130/63 92 Room Air PG Care Time/CCT Total # of Minutes Spent Total Time Spent with Patient: Total time spent is greater than 50% in coordination of care (as documented) at patient's floor/unit and/or counseling patient: Coding Level of Care Code 26139 INT INP/OBS CARE 2MIN Diagnoses Pre-syncope R55 Pulmonary emphysema, unspecified emphysema type J43.9 COPD type: emphysema Emphysema type: unspecified Moderate protein-energy malnutrition E44.0
[2024-10-17] MEDS: CLOPIDOGREL BISULFATE 75 MG TAB PO SCH (13:25)
[2024-10-17] MEDS: POLYETHYLENE (MIRALAX) 17 GM PACK PO SCH (14:03)
[2024-10-17] MEDS: IRON SUCROSE 200 MG in SODIUM CHLORIDE 0.9% 100 ML IV ONE (16:35)
[2024-10-18 06:14] LABS: Hematocrit (blood only) 24.6 % (42.0-52.0); Mean Corpuscular Hemoglobin 28.5 pg (25.0-34.0); Mean Corpuscular Hgb Conc 32.5 g/dL (32.0-36.0); Mean Corpuscular Volume 87.5 fL (80.0-100.0); Mean Platelet Volume 9.7 fL (9.4-12.4); Platelet Count 179 K/uL (130-400); RDW Coefficient of Variation 13.2 % (11.5-14.5); RDW Standard Deviation 41.7 fL (36.4-46.3); Red Blood Count 2.81 M/uL (4.70-6.10); White Blood Count 5.04 K/ul (4.8-10.8)
[2024-10-18 06:38] LABS: BUN Creatinine Ratio 23.1 (10-20); Calcium 8.1 mg/dl (8.6-10.3); Creatinine Clr Calc Pharmacy 43.8 ml/min; Magnesium 2.2 mg/dl (1.7-2.4); Phosphorus 3.8 mg/dl (2.5-4.9); Potassium 4.2 mmol/L (3.5-5.1)
[2024-10-18] MEDS ORDERED: SODIUM CHLORIDE 0.9% 100 ML IV PRN (09:35)
--- NOTE | 2024-10-18 09:47 | Hospitalist Progress Note ---
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 Most likely this is due to his progressive anemia with fairly rapid blood loss over the last 30 days. Hemoglobin declining from 12.3 to 8.0. Reviewed pulmonary consultation, do not feel as though his emphysema has exacerbated and is the cause of his acute dyspnea Reviewed cardiology consultation, patient known ventricular ectopy and arrhythmia. This does not seem to be contributing to the patient's symptoms. Reviewed GI consultation. Noted previously that he had colonoscopy and EGD within the last 11 months that did not show significant signs of bleeding. This raises a high suspicion for small bowel blood loss. Will need outpatient video capsule endoscopy to confirm suspected diagnosis of small bowel AVMs and associated blood loss. Discussed blood consent with the patient, he was agreeable Transfuse 1 unit of packed red blood cells. Follow hemoglobin in a.m. If patient's symptoms have improved explained to the patient that he may need to have his hemoglobin monitored as an outpatient and coordinated outpatient transfusions while he is being worked up for possible small bowel blood loss. Patient will continue his other medical care as ordered. Patient reports that he feels that his anxiety is fairly well-controlled now that we seem to be getting him some answers. I do think this is contributing to some of his symptoms. Could consider increasing his sertraline or adding BuSpar for further management of his anxiety. I spent a total [id number] coordinating, documenting, and providing care for this patient excluding time spent in the performance of separately billed services Admission and Anticipated Discharge Date Admission Date: October 16, 2024 Subjective Patient reports that he has not done a whole lot of activity here in the hospital but is sure that he would still be short of breath. Very concerned that his hemoglobin continues to trend downward. Physical Exam Physical Exam: Constitutional: Alert, no acute distress HEENT: Mucous membranes moist. Lungs: Decreased breath sounds, prolonged expiratory phase, poor airflow, no wheezes, no rales CV: S1-S2, irregular, systolic murmur Abdomen: Soft, nontender, nondistended Extremities: No significant edema Neuro: No focal deficits Psych: Cooperative, anxious Results & Data Results & Data Vital Signs (Past 12 Hours) Vital Signs Temp Pulse Pulse Resp BP BP Pulse Ox 10/18/24 08:25 10/18/24 08:02 77 18 96 10/18/24 07:43 36.5 C 56 L 16 124/55 L 99 10/18/24 07:00 67 10/18/24 02:11 36.8 C 63 18 113/38 L 94 10/18/24 01:25 86 10/17/24 22:22 36.5 C 67 18 119/67 92 10/17/24 22:00 O2 Del Method 10/18/24 08:25 Room Air 10/18/24 08:02 Room Air 10/18/24 07:43 Room Air 10/18/24 07:00 10/18/24 02:11 Room Air 10/18/24 01:25 10/17/24 22:22 Room Air 10/17/24 22:00 Room Air Diagnostic Findings Reviewed imaging, laboratory and diagnostic studies. Pertinent findings as below. Patient's hemoglobin has trended down to 8.0 this morning. Initially 9.9 at the time of admission, 12.3 end of August BMP stable
--- NOTE | 2024-10-18 10:50 | Gastroenterology Progress Note ---
Date of Service October 18, 2024 Assessment & Plan (1) Anemia: Plan: Patient does not seem to be actively bleeding given one harder, small, dark stool. - continue with protonix 40mg bid. - continue with psyllium. - continue with miralax 17gm daily. - Our office has been notified to work on getting him set up for capsule endoscopy as an outpatient. Admission and Anticipated Discharge Date Admission Date: October 16, 2024 Supervising Physician Co-Signing Physician Notes I personally saw and examined the patient. I have reviewed the chart and agree with the documentation provided by the [facility] including discussion about the assessment, treatment and plan. Briefly, noted. He had a old dark stool. We will plan for an outpatient capsule endoscopy as long as he remains stable PPI twice daily for now. Subjective Patient had a drop in hgb from 9.2 to 8 overnight. he reports that he had a small, hard, dark stool last evening. no nausea, vomiting, heartburn, brbpr. Review of Systems Review of Systems: All systems reviewed & are unremarkable except as noted in HPI & below Physical Exam Constitutional: WD/WN, vitals as above Respiratory: normal respiratory effort, lungs clear to auscultation Cardiovascular: Rate/Rhythm: regular rate and regular rhythm Gastrointestinal (Abdomen): normal bowel sounds, soft, nontender, no hepatosplenomegaly Psychiatric: Orientation: alert and oriented x 3 Affect: euthymic affect Results & Data Results & Data Vital Signs (Past 12 Hours) Vital Signs Temp Pulse Pulse Resp BP Pulse Ox O2 Del Method 10/18/24 08:25 Room Air 10/18/24 08:02 77 18 96 Room Air 10/18/24 07:43 97.7 F 56 L 16 124/55 L 99 Room Air 10/18/24 07:00 67 10/18/24 02:11 98.2 F 63 18 113/38 L 94 Room Air 10/18/24 01:25 86 Coding Level of Care Code 05382 SUB INP/OBS CARE 2/35MIN Diagnoses Anemia D64.9
[2024-10-18 15:20] LABS: Hematocrit (blood only) 31.4 % (42.0-52.0); Hemoglobin 10.2 g/dl (14.0-18.0)
--- NOTE | 2024-10-18 15:25 | Cardiology Progress Note ---
Date of Service October 18, 2024 Assessment & Plan (1) SOB (shortness of breath): (2) Ventricular ectopy: (3) Acute on chronic blood loss anemia: (4) COPD with emphysema: (5) CAD (coronary artery disease): Plan 10/17/24 Patient admitted with worsening SOB with activities and dizziness with exertion. Recent stent to the prox LAD on 09/13/24 1 day post stent, he was readmitted due to similar SOB, elevated troponin with echo revealing normal LVEF. No wall motion abnormalities. treated for COPD exacerbation with severe emphysema noted on chest CT. Now following with pulm. Per patient, symptoms improved post discharge, until this past week, symptoms returned. Noted significant dyspnea with exertion, unable to ambulate 20 feet without stopping and "gasping" for air. No chest pain. He reports feeling "dizzy" and near syncopal with ongoing exertion if he 'pushes himself". No true syncope. Recommend repeat echo to reassess LVEF and pulm pressures. HS troponin negative on admission. EKG without acute ischemic changes. Chest CT negative for PE. Underlying emphysema noted. Acute possible blood loss anemia, possibly contributing to his dyspnea. Hbg previously 13.2, now 9.2 on admission. patient denies changes to his bowel habits, or significant hematuria, but is concerned with diverticulitis. Has had several episodes of abdominal pain. GI consulted. He had scopes last year which were unremarkable. Conservative therapies recommended for now. For now, continue Plavix 75 mg daily given recent coronary stent. Acceptable to hold ASA until hbg stabilizes. He has a long history of frequent ventricular ectopy, ectopic atrial arrhythmias. He has been followed by EP as an outpatient who felt there was no acute indication for pacemaker, but his rhythm has been followed closely. Avoidance of beta blockers/AV julius blocking agents recommended. Telemetry without significant bradycardia, pauses 10/18/24: Patient with worsening anemia overnight and today. Hbg down to 8.0. No recent BM's overnight. Given CAD and recent stent - would transfuse for goal of hbg around 10.0 Continue Plavix for now given extensive stenting of the LAD 1 month ago. Hold ASA. GI consulted. Echo updated with preserved LVEF, no wall motion abnormalities. Continue statin. Chronic PVC's noted on telemetry. No high degree AV block or tachyarrhythmias that would contribute to near syncope. No pauses. Case discussed with Dr. Sutton I spent a total of 30 minutes on the date of service in preparation, delivery, and documentation of the care provided to this patient, excluding any time spent in the performance of separately billed services. Connie Gunter PA-C Department of Cardiology, [facility] This chart was completed in part utilizing Speech Voice Recognition Software. Grammatical errors, random word insertions, pronoun errors, and incomplete sentences are an occasional consequence of this system due to software limitations, ambient noise, and hardware issues. Any formal questions or concerns about the content, text, or information contained within the body of this dictation should be directly addressed to the provider for clarification. Admission and Anticipated Discharge Date Admission Date: October 16, 2024 Supervising Physician Co-Signing Physician Notes I have personally performed a history and physical examination on the patient. I have reviewed the advance practitioner's documentation, and I agree with, and take responsibility for the plan of care. 88-year-old male admitted with near syncope and dyspnea on exertion. Recent proximal LAD stent placed September 13, 2024. High-sensitivity troponin within normal limits on admission. No ischemic ECG changes. Echocardiogram revealing preserved LV systolic function and normal wall motion. Telemetry demonstrates sinus rhythm, ectopic atrial rhythm, and frequent PVCs (chronic finding). No significant pauses, heart block, or symptomatic bradycardia recorded. Admitting symptoms likely due to symptomatic anemia. Hemoglobin trending downward from 13.2 g/dL to 8.0 g/dL today. He received 1 unit of packed red blood cells. Reports dark-colored stools without melena or hematochezia. Gastroenterology following. Planning capsule endoscopy as outpatient if hemoglobin remains stable. Low-dose aspirin discontinued. Continue clopidogrel uninterrupted at this time due to recent drug-eluting stent implantation. Maintain hemoglobin greater than 8.0 g/dL. Oral and IV iron supplementation as per internal medicine. I spent a total of 25 minutes on the date of service in preparation, delivery, and documentation of the care provided to this patient, excluding any time spent in the performance of separately billed services. Eddie Sutton DO, [facility] Subjective patient resting comfortably in bed. Denies chest pain. SOB improved from admission, but he has not been ambulating long distances. No palpitations or tachypalpitations. Hbg trending lower. No BM's since admission. FOBT was positive. Holding ASA. Review of Systems Review of Systems: All systems reviewed & are unremarkable except as noted in HPI & below Physical Exam Constitutional: WD/WN, vitals as above + thin; no acute distress Neck: trachea midline, no thyromegaly Respiratory: no labored breathing Auscultation: + diminished lung sounds; no crackles, no rales and no wheezes Cardiovascular: Rate/Rhythm: regular rate and regular rhythm (Occ ectopy ) Heart Sounds: normal S1 and normal S2; no murmur Vessels: no JVD Extremities: no edema Gastrointestinal (Abdomen): normal bowel sounds, soft, nontender, no hepatosplenomegaly Results & Data Vital Signs (Past 12 Hours) Vital Signs Temp Pulse Pulse Resp BP BP BP 10/18/24 13:32 36.3 C L 73 16 106/51 L 10/18/24 12:38 36.4 C L 60 18 107/50 L 10/18/24 12:32 36.4 C L 60 16 107/50 L 10/18/24 12:02 36.5 C 65 18 121/74 10/18/24 11:47 36.2 C L 58 L 18 113/56 L 10/18/24 11:46 36.2 C L 58 L 18 113/56 L 10/18/24 11:30 36.3 C L 59 L 18 134/70 10/18/24 11:09 36.4 C L 58 L 18 113/56 L 10/18/24 08:25 10/18/24 08:02 77 18 10/18/24 07:43 36.5 C 56 L 16 124/55 L 10/18/24 07:00 67 Pulse Ox O2 Del Method 10/18/24 13:32 96 10/18/24 12:38 96 Room Air 10/18/24 12:32 96 10/18/24 12:02 96 10/18/24 11:47 98 10/18/24 11:46 98 10/18/24 11:30 97 10/18/24 11:09 98 Room Air 10/18/24 08:25 Room Air 10/18/24 08:02 96 Room Air 10/18/24 07:43 99 Room Air 10/18/24 07:00 Laboratory Results CBC 10/18/24 Range/Units 05:51 WBC 5.04 (4.8-10.8) K/ul RBC 2.81 L (4.70-6.10) M/uL Hgb 8.0 L (14.0-18.0) g/dl Hct 24.6 L (42.0-52.0) % Plt Count 179 (130-400) K/uL Comprehensive Metabolic Panel 10/18/24 Range/Units 05:51 Sodium 139 (136-145) mmol/L Potassium 4.2 (3.5-5.1) mmol/L Chloride 109 H (98-107) mmol/L Carbon Dioxide 26 (21-32) mmol/L BUN 21 (6-23) mg/dl Creatinine 0.91 (0.6-1.4) mg/dl Glucose 100 H (70-99(Fasting)) mg/dl Calcium 8.1 L (8.6-10.3) mg/dl Intake and Output 10/18/24 10/18/24 10/18/24 06:59 14:59 22:59 Intake Total 150 / 940 550 / 550 Output Total 0 / 0 Balance 150 / 940 550 / 550 Intake: Oral 150 / 830 240 / 240 Intake (Blood Product) Amt 310 / 310 Packed Cells, Leukoreduced 310 / 310 Unit [id number] Output: # Bowel Movements 0 / 0 Other: # Unmeasured Voids 2 Weight 53.1 kg Diagnostic Findings Telemetry reviewed: NSR with HR ranging 60-80's, occ PVC with couplets and triplets. No sustained arrhythmias. Echo report reviewed from 10/17: Normal LVEF at 55-60% Normal wall motion No pericardial effusion Medications Administered Current Inpatient Medications Acetaminophen (Acetaminophen 325 Mg Tab) 650 mg PO Q4H PRN PRN Reason: Pain or Fever Stop: 11/15/24 21:07 Albuterol (Albuterol 0.083% Nebu Soln 3 Ml Vial) 2.5 mg NEB Q6H PRN; Protocol PRN Reason: shortness of breath or wheezing Stop: 11/15/24 21:07 Atorvastatin Calcium (Atorvastatin 40 Mg Tab) 40 mg PO HS [facility] Stop: 11/15/24 21:07 Last Admin: 10/17/24 20:42 Dose: 40 mg Budesonide (Budesonide 0.5 Mg/2 Ml Vial (Pulmicort)) 0.5 mg NEB BIDR [facility] Stop: 11/15/24 21:07 Last Admin: 10/18/24 07:26 Dose: 0.5 mg Clopidogrel Bisulfate (Clopidogrel Bisulfate 75 Mg Tab) 75 mg PO QAM [facility] Stop: 11/16/24 12:34 Last Admin: 10/18/24 08:26 Dose: 75 mg Cyanocobalamin (Cyanocobalamin (B-12) 500 Mcg Tablet) 1,000 mcg PO DAILY [facility] Stop: 11/16/24 08:59 Last Admin: 10/18/24 08:27 Dose: 1,000 mcg Finasteride (Finasteride 5 Mg Tab) 5 mg PO DAILY [facility] Stop: 11/16/24 08:59 Last Admin: 10/18/24 08:28 Dose: 5 mg Formoterol Fumarate (Formoterol 20 Mcg/2 Ml Vial) 20 mcg INH DAILY [facility] Stop: 11/16/24 08:59 Last Admin: 10/18/24 07:26 Dose: 20 mcg Guaifenesin (Guaifenesin 600 Mg Tabcr) 600 mg PO DAILY [facility] Stop: 11/16/24 08:59 Last Admin: 10/18/24 08:27 Dose: 600 mg Sodium Chloride (Nss) 100 mls @ 15 mls/hr IV .Q6H40M PRN PRN Reason: For Transfusion Duration Stop: 10/18/24 17:35 Lorazepam (Lorazepam 0.5 Mg Tab) 0.5 mg PO Q8H PRN PRN Reason: anxiety Stop: 11/15/24 21:07 Magnesium Oxide (Magnesium Oxide 400 Mg Tab) [facility] Stop: 11/16/24 08:59 Last Admin: 10/18/24 08:27 Dose: 400 mg Ondansetron HCl (Ondansetron Inj 2 Mg/Ml 2 Ml Vial) 4 mg IV Q6H PRN PRN Reason: Nausea Stop: 11/15/24 21:07 Pantoprazole Sodium (Pantoprazole 40 Mg Tab) 40 mg PO BID [facility] Stop: 11/15/24 21:07 Last Admin: 10/18/24 08:27 Dose: 40 mg Polyethylene Glycol (Polyethylene (Miralax) 17 Gm Pack) 17 gm PO DAILY [facility] Stop: 11/16/24 13:44 Last Admin: 10/18/24 08:32 Dose: 17 gm Psyllium Hydrophilic Mucilloid (Psyllium Or Guar Gum Fiber 4gm Packet) 4 gm PO DAILY [facility] Stop: 11/16/24 08:59 Last Admin: 10/18/24 08:26 Dose: 4 gm Sertraline HCl (Sertraline Hcl 50 Mg Tablet) 50 mg PO QAM [facility] Stop: 11/16/24 08:59 Last Admin: 10/18/24 08:28 Dose: 50 mg Trazodone HCl (Trazodone Hcl 50 Mg Tab) 50 mg PO HS [facility] Stop: 11/15/24 21:07 Last Admin: 10/17/24 22:29 Dose: 50 mg Umeclidinium P[place]mont (Umeclidinium [place] 62.5mcg/Blister 7 Puffs/Inhaler) 1 puffs INH DAILY [facility] Stop: 11/16/24 08:59 Last Admin: 10/18/24 08:28 Dose: 1 puffs Vitamin D (Cholecalciferol 25 Mcg (1000 Units) Tab) 25 mcg PO DAILY [facility] Stop: 11/16/24 08:59 Last Admin: 10/18/24 08:27 Dose: 25 mcg
[2024-10-19 06:48] LABS: Hematocrit (blood only) 28.5 % (42.0-52.0); Hemoglobin 9.3 g/dl (14.0-18.0); Mean Corpuscular Hemoglobin 29.1 pg (25.0-34.0); Mean Corpuscular Hgb Conc 32.6 g/dL (32.0-36.0); Mean Corpuscular Volume 89.1 fL (80.0-100.0); Mean Platelet Volume 9.7 fL (9.4-12.4); Platelet Count 184 K/uL (130-400); RDW Standard Deviation 45.1 fL (36.4-46.3); White Blood Count 5.61 K/ul (4.8-10.8)
[2024-10-19 07:02] LABS: Calcium 8.1 mg/dl (8.6-10.3); Creatinine Clr Calc Pharmacy 39.8 ml/min; Potassium 4.1 mmol/L (3.5-5.1)
[2024-10-19] MEDS ORDERED: SODIUM CHLORIDE 0.9% 100 ML IV PRN (08:55)
[2024-10-19 10:46] VITALS: RESP 18
--- NOTE | 2024-10-19 10:52 | Discharge Summary ---
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 He was not hypoxic but significantly limited in his activities. The only significant finding in the ED was that his hemoglobin had dropped fairly significantly since his admission just about 1 month ago. Patient was admitted to the hospital. Due to the fact that the patient had some cardiac arrhythmias, severe emphysema and suspected possible GI blood loss, cardiology, pulmonary and gastroenterology were consulted. Patient was evaluated by cardiology. Due to the fact that he has fresh coronary artery stents recommended continuing his Plavix but holding his aspirin. His ventricular ectopy is at his baseline and no further interventions were required from a cardiology standpoint. Patient was evaluated by pulmonary. Patient was not in exacerbation with his COPD/emphysema. They recommended continuing his outpatient respiratory treatments and medications and continue to follow with them outpatient. It was determined that his dyspnea was not due to any exacerbation of his pulmonary issues. Patient's hemoglobin did continue to drift down while he was here in the hospital. And never dropped below hemoglobin of 7, however it did drop to hemoglobin of 8. Stool did test positive for occult blood but no dark tarry stool or visible blood was seen in his stool. Patient just had EGD and colonoscopy within the past year. There was no signs of or evidence of blood loss on those endoscopies. This raises a suspicion of intermittent small bowel bleeding. Patient's overall symptoms did not improve with the transfusion of packed red blood cells. Suspect the patient is exquisitely sensitive to a drop in his hemoglobin causing him to have significant symptoms. Cardiology did recommend trying to keep his hemoglobin around 10. He did receive IV iron as well. On the day of discharge she was seen ambulating around the medical hallways without assistance and without any dyspnea. He be transfused a second unit of PRBCs with plans to be discharged home. Gastroenterology will help coordinate outpatient follow-up to pursue video capsule endoscopy to evaluate for small bowel lesions. Recommend monitoring his hemoglobin weekly on an outpatient basis and coordinating outpatient transfusion if his hemoglobin would drop below 9. Patient seems to become significantly symptomatic when he approaches this level. Notes For Next Care Provider Recommend following hemoglobin weekly, coordinate outpatient transfusions for hemoglobin less than 9 or severe dyspnea Follow-up with gastroenterology for video capsule endoscopy Follow-up with his other outpatient specialist, cardiology, pulmonary as previously arranged Medication Changes From Visit Protonix increased to 2 times daily Aspirin on hold until resumed by GI/cardiology/PCP Admission HPI Per Admitting Provider Patient is an 88-year-old gentleman with known severe emphysema but does not require home oxygen. He also has known coronary artery disease. Presents to the emergency room today with severe dyspnea on exertion. In the emergency room workup was remarkable for a slightly decreased hemoglobin from his baseline, however, he was 100% O2 sat on room air. Other laboratory studies were unremarkable. Chest x-ray Showed no acute process. Due to the patient's severe dyspnea there was concern and was referred to our service for further evaluation. Time of my evaluation Patient was resting comfortably on the litter, however he did seem quite anxious. His O2 sat was 100%. He describes severe dyspnea on exertion as he attempted to go shopping at [employer] today. He states that he could barely walk 20 feet without having to take a rest. He barely made it back to his car. Once he sat in the car and rested for a while he felt able to drive. He subsequently drove to [employer]. As he walked into [place] he could barely make it into the building and got extremely dyspneic. He received some assistance from a bystander to walk him back to his car. Again as he sat in the car for period of time he felt well enough to be able to drive home. Once he got home his brother brought him to the emergency room for evaluation. He denies any fever and chills. No new cough or cold symptoms. He denies chest pain. He denies palpitations. He denies any swelling in his hands arms legs or feet. He states he has been compliant with his new inhaler and nebulizer treatment that was started when he was in the hospital just 1 month ago. He does have a significant history of and severe anemia. He is quite concerned and follows his hemoglobin quite closely. His hemoglobin is slightly decreased from when he was here about 1 month ago but not at a level that should be severely symptomatic or that would require transfusion. He did have colonoscopy and EGD about 11 months ago. Also had ZIO monitoring and cardiac cath within the past few months and has had extensive evaluation by pulmonary all for similar symptoms of this debilitating dyspnea. He does have severe emphysema on imaging, however he has not met criteria for home oxygen. Patient states he has had some minor nosebleeds, has seen ENT who recommend nasal saline and Vaseline in his nose. He denies seeing any blood in his stool or black tarry stools. Admission Exam Per Admitting Provider See H&P Discharge Exam Constitutional: Alert, nontoxic, no acute distress HEENT: Mucous membranes moist. Lungs: Decreased breath sounds, prolonged expiratory phase, no wheezes CV: S1-S2, irregular Abdomen: Soft, nontender, nondistended Extremities: No significant edema Neuro: No focal deficits Psych: Cooperative, normal mood Updated Medication List Medication Instructions Recorded Confirmed Type atorvastatin 40 mg tablet 40 mg PO HS 12/27/19 10/16/24 History cholecalciferol (vitamin D3) 25 25 mcg PO DAILY 12/27/19 10/16/24 History mcg (1,000 unit) tablet (Vitamin D3) fluoride (sodium) 1.1 % dental 1 applic PO DAILY 12/03/23 10/16/24 History paste (PreviDent 5000 Booster Plus) trazodone 50 mg tablet 50 mg PO HS Insomnia 12/03/23 10/16/24 History lorazepam 0.5 mg tablet (Ativan) 0.5 mg PO Q8H PRN anxiety #20 tabs 12/17/23 10/16/24 Rx sertraline 100 mg tablet 50 mg PO QAM 04/08/24 10/16/24 History aspirin 81 mg tablet,delayed 81 mg PO DAILY #90 tabs 09/13/24 10/16/24 Rx release clopidogrel 75 mg tablet 75 mg PO DAILY #30 tabs 09/13/24 10/16/24 Rx famotidine 20 mg tablet 20 mg PO HS 09/13/24 10/16/24 History finasteride 5 mg tablet 5 mg PO DAILY 09/13/24 10/16/24 History nitroglycerin 0.4 mg sublingual 0.4 mg sublingual DIRECTED PRN 09/13/24 10/16/24 History tablet Chest Pain albuterol sulfate 90 mcg/actuation 2 puff inhalation Q4H PRN 09/14/24 10/16/24 History aerosol inhaler Shortness Of Breath Or Wheezing psyllium 1 packet PO DAILY 09/14/24 10/16/24 History albuterol sulfate 2.5 mg/3 mL 2.5 mg (3 mL) NEB Q6H PRN 09/16/24 10/16/24 Rx (0.083 %) solution for nebulization shortness of breath or wheezing #75 mL magnesium oxide 400 mg (241.3 mg 400 mg PO QAM #10 tabs 09/16/24 10/16/24 Rx magnesium) tablet arformoterol 15 mcg/2 mL solution 2 ml inhalation DAILY #60 mL 10/11/24 10/16/24 Rx for nebulization (Brovana) budesonide 0.5 mg/2 mL suspension 0.5 mg (2 mL) NEB BIDR #60 mL 10/11/24 10/16/24 Rx for nebulization tiotropium bromide 1.25 2 puff inhalation DAILY #4 grams 10/11/24 10/16/24 Rx mcg/actuation mist for inhalation (Spiriva Respimat) cyanocobalamin (vitamin B-12) 1,000 mcg PO DAILY 10/16/24 10/16/24 History 1,000 mcg tablet (Vitamin B-12) guaifenesin 600 mg tablet, 600 mg PO DAILY 10/16/24 10/16/24 History extended release 12 hr (Mucinex) turmeric 400 mg capsule 400 mg PO DAILY 10/16/24 10/16/24 History vitamin K2 40 mcg tablet 40 mcg PO DAILY 10/16/24 10/16/24 History pantoprazole 40 mg tablet,delayed 40 mg PO BID #60 tabs 10/19/24 Rx release Hospital Stay Data Consultations 10/16/24 17:07 ED Decision to Admit Stat 10/16/24 21:08 Consult Cardiology Routine Consult Gastroenterology Routine Consult Pulmonology Routine Diagnostic Imagining Performed 10/16/24 17:50 CT angio chest PE protocol Stat Reviewed imaging, laboratory and diagnostic studies. Pertinent findings as below. WBCs 5.6 Hemoglobin 9.3, prior to transfusion on day of discharge Platelets 184 BMP stable CTA of chest negative for PE Echocardiogram showed ejection fraction 55 to 60% with normal left ventricular wall motion. No pericardial effusion. Pending Results Patient Have Any Pending Studies at Discharge: No Discharge Instructions Given to Patient (Per Discharging Provider) Follow-up with gastroenterology to perform this video capsule. Follow with your PCP. Recommend monitoring your hemoglobin on a weekly basis and coordinating outpatient transfusions if hemoglobin drops below 9 Total Time Total Time Spent Total Time Spent (In Minutes): 41
[2024-10-19 13:14] VITALS: TEMP 97.7; O2SAT 98
[2024-10-19 13:24] VITALS: BP 126/74; PULSE 66
== END 2024-10-19 14:42 | disposition home or self-care (01) | DRG 811 ==
LOC: ED 14:57 → SUATTDRO 17:45 → 2N 17:45